=== PATIENT | female | born 1970 | race Caucasian/White ===

== ENCOUNTER 2016-08-27 14:39 | Outpatient (CLI) | payer MEDICAID ==
[~2016-08-27] VITALS: Ht 157.5 cm; Wt 110.7 kg
--- OUTSIDE RECORDS SUMMARY | 2016-08-27 14:42 | XMS REPORT ---
Author Author DYLLAN SOSA eClinicalWorks Address Unknown Phone Unavailable Care Team Providers Care Charter And Tour Bus Driver Name Role Phone DYLLAN SOSA CP Unavailable Allergies, Adverse Reactions, Alerts Substance Reaction Event Type Sulfamethoxazole-Trimethoprim swelling Drug Allergy Problems Problem Type Condition Code Onset Dates Condition Status Assessment Diabetic polyneuropathy associated with type 2 diabetes mellitus E11.42 Active Problem Diabetes type 2, uncontrolled E11.65 Active Assessment Diabetes type 2, uncontrolled E11.65 Active Problem Acquired hypothyroidism E03.9 Active Problem Diabetic polyneuropathy associated with type 2 diabetes mellitus E11.42 Active Problem Other chronic pain G89.29 Active Problem Chronic constipation K59.00 Active Problem Anxiety F41.9 Active Problem Gastroparesis due to secondary diabetes E13.43 Active Problem Diabetes type 2, controlled E11.9 Active Assessment Chronic constipation K59.00 Active Assessment Pain in right knee M25.561 Active Assessment Other chronic pain G89.29 Active Assessment Acquired hypothyroidism E03.9 Active Assessment Anxiety F41.9 Active Assessment Pain in left knee M25.562 Active Assessment Gastroparesis due to secondary diabetes E13.43 Active Medications Medication Code System Code Instructions Start Date End Date Status Dosage Clonazepam [facility] [place] [address]-87 1 MG Orally Once a day Sep 17, 2015 1.5 tabs in pm Linzess [facility] [place] [address]-61 145 MCG Orally Once a day (DX: chronic constipation/abd pain) May 29, 2015 1 capsule Sucralfate [facility] [place] [id number] 1 GM Orally Once a day at bedtime 1 tablet on an empty stomach BusPIRone HCl [facility] [place] 72965035624 10 mg Orally 2 times a day 1 tablet Fluticasone Propionate [facility] [place] [address]-32 50 MCG/ACT Nasally Once a day November 21, 2015 1 spray in each nostril metformin ND 0 850 mg orally Once a day Aug 28, 2014 1 tablet Hydrochlorothiazide [facility] [place] [address]-37 12.5 MG Orally Once a day Mar 13, 2015 1 capsule Prevacid [facility] [place] 36480883300 30 MG Orally Once a day 1 capsule Lyrica [facility] [place] [address]-64 150 MG Orally 3 times a day Oct 01, 2015 1 capsule Levothyroxine Sodium [facility] [place] [address]-20 25 MCG Orally Once a day Jul 30, 2015 1 tablet Voltaren [facility] [place] [address]-04 1 % Transdermal 2 times a day Jun 10, 2015 as directed Trulicity [facility] [place] 28000670516 1.5 MG/0.5ML Subcutaneous once weekly 0.5 ml Lisinopril [facility] [place] [address]-27 2.5 MG Orally Once a day October 07, 2014 1 tablet Fetzima Titration [facility] [place] [address]-36 40 mg Orally Once a day Apr 30, 2015 2 tablet HydrOXYzine HCl [facility] [place] 18031074972 50 MG Orally 3 times a day 1/2 in am 1/2 tab noon and 1 tablet at bedtime Procedures Procedure Coding System Code Date Office Visit, Est Pt., Level 4 CPT-4 77249 May 28, 2016 Vital Signs Date/Time: May 28, 2016 Cardiac Monitoring Heart Rate 76 bpm Weight 250.0 lbs Height 62 in BMI 45.72 Index Blood Pressure Diastolic 70 mmHg Blood Pressure Systolic 120 mmHg Results No Known Results Summary Purpose eClinicalWorks Submission
[2016-08-27] MEDS ORDERED: LEVO25TA5 PO (15:08)
[2016-08-27] MEDS ORDERED: SUCR1TAB PO (15:08)
[2016-08-27] MEDS ORDERED: BUSP10TA95 PO (15:08)
[2016-08-27] MEDS ORDERED: DICL100G18 TP (15:08)
[2016-08-27] MEDS ORDERED: DULA1.5P2 SQ (15:08)
[2016-08-27] MEDS ORDERED: PROM25TA14 PO (15:08)
[2016-08-27] MEDS ORDERED: METF850T2 PO (15:08)
[2016-08-27] MEDS ORDERED: LANS30CA PO (15:08)
[2016-08-27] MEDS ORDERED: LISI2.5T PO (15:08)
[2016-08-27] MEDS ORDERED: PREG150C PO (15:08)
[2016-08-27] MEDS ORDERED: CLON1TAB3 PO (15:08)
[2016-08-27] MEDS ORDERED: HYDR12.56 PO (15:08)
[2016-08-27] MEDS ORDERED: FLUT16SP22 NSEACH (15:08)
[2016-08-27] MEDS ORDERED: MELO7.5T46 PO (15:08)
[2016-08-27] MEDS ORDERED: LEVO80CA PO (15:08)
[2016-08-27] MEDS ORDERED: HYDR50TA76 PO (15:08)
[2016-08-27] MEDS ORDERED: ONDA8TAB12 PO (15:08)
== END 2016-08-27 15:09 ==
LOC: PREOP 14:39
PROVIDERS: ATTEND Orthopaedic Surgery
DX: Z01.818 Encounter for other preprocedural examination (principal); M23.8X1 Other internal derangements of right knee

== ENCOUNTER 2016-09-01 08:05 | Day surgery (SDC) | payer MEDICAID ==
[~2016-09-01] VITALS: Ht 157.5 cm; Wt 110.7 kg
[~2016-09-01 08:05] MED LIST: BUSP10TA95 PO; CLON1TAB3 PO; DICL100G18 TP; DULA1.5P2 SQ; FLUT16SP22 NSEACH; HYDR12.56 PO; HYDR50TA76 PO; LANS30CA PO; LEVO25TA5 PO; LEVO80CA PO; LISI2.5T PO; MELO7.5T46 PO; METF850T2 PO; ONDA8TAB12 PO; PREG150C PO; PROM25TA14 PO; SUCR1TAB PO
--- NOTE | 2016-09-01 08:07 | HISTORY AND PHYSICAL ---
DATE OF ADMISSION: 09/01/2016 DICTATING PHYSICIAN: Dr. Lopez This will be for outpatient surgery for right knee arthroscopy. HISTORY: The patient is a 46-year-old female, who originally injured her right knee 9 years ago. She had a hyperextension injury. She felt and heard a pop. She was treated with rest, activity modifications and anti-inflammatories without relief. She reports popping and catching in her knee. She reports she has difficulty with exercise because of her knee. Due to functional impairment and failure to improve with conservative measures, the patient has elected proceed with surgical intervention. REVIEW OF SYSTEMS: No chest pain, no shortness of breath. No dysuria. PAST MEDICAL HISTORY: 1. Anxiety disorder. 2. Depression. 3. Diabetes. 4. Reflux. 5. Migraine headache. 6. Irritable bowel syndrome. 7. Sleep apnea. 8. Diabetic neuropathy. 9. Gastroparesis. 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 PAST SURGICAL HISTORY: 1. Adenoidectomy. 2. EGD. FAMILY HISTORY: Unknown. MEDICATIONS: 1. Prevacid 2. hydroxyzine 3. Trilisate 4. levothyroxine 5. lisinopril 6. Fluconazole 7. Lyrica 8. Linzess 9. hydrochlorothiazide 10. MiraLAX 11. Mobic 12. Metformin 13. Voltaren 14. buspirone 15. sucralfate 16. Zofran 17. clonazepam 18. Fetzima ALLERGIES: Sulfamethoxazole. SOCIAL HISTORY: The patient is a former smoker. She denies alcohol use. PHYSICAL EXAMINATION: The patient is well-developed, well-nourished, in no acute distress. HEENT: Normocephalic, atraumatic. Pupils are equal, and reactive to light. OROPHARYNX: Clear. NECK: Supple. No lymphadenopathy. LUNGS: Clear to auscultation bilaterally. HEART: Regular rate and rhythm. ABDOMEN: Soft, nontender, nondistended. EXTREMITY EXAM: The right knee demonstrates a mild effusion. Range of motion 0//0/135. She has 1+ Odell with firm endpoint trace, anterior drawer with firm endpoint negative posterior drawer. No varus valgus laxity. Negative pivot shift. She is tender along her medial lateral joint lines with pain with Mary's medially and laterally. IMPRESSION: Medial meniscal tear, right knee with chondromalacia. PLAN: Right knee arthroscopy, chondroplasty, partial meniscectomy. The risks, benefits, options, ramifications and recovery were discussed at length with the patient. She understands and wishes to proceed. Job ID: [id number] Dictated Date: 08/26/2016 15:45:00 Indoor Landscape Architect Date: 08/27/2016 08:22:47/tyson
[2016-09-01] MEDS ORDERED: ceFAZolin 1,000 MG (ANCEF) VIAL ONE (08:11)
[2016-09-01] MEDS ORDERED: NORMAL SALINE (BAXTER MINI) 50 ML IV ONE (08:11)
[2016-09-01 08:39] VITALS: BP 129/82
[2016-09-01 08:40] VITALS: BP 129/82
[2016-09-01] MEDS ORDERED: MIDAZOLAM 2 MG/2 ML (VERSED) VIAL ONE ×2 (08:41→09:44)
[2016-09-01] MEDS ORDERED: FAMOTIDINE 20MG/2ML IV (PEPCID) ONE (08:41)
[2016-09-01] MEDS ORDERED: ceFAZolin 1 GM/NS 50 ML IVPB IV ONE ×2 (09:00)
[2016-09-01] MEDS ORDERED: LACTATED RINGERS 1,000 ML IV PRN (09:02)
--- NOTE | 2016-09-01 09:07 | Progress Note-Pre Operative ---
Pre-Operative Progress Note H&P Reviewed The H&P was reviewed, patient examined and no changes noted. Date H&P Reviewed: Sep 01, 2016 Time H&P Reviewed: 09:07 Pre-Operative Diagnosis: right knee medial meniscal tear and chondromalacia BRANDIN CELESTIN MD Sep 01, 2016 09:07
--- NOTE | 2016-09-01 09:09 | Progress Note-Post Operative ---
Post-Operative Progess Note Deflector Operator Fidencio Lucas Pre-Operative Diagnosis right knee medial meniscal tear and chondromalacia Post-Operative Diagnosis right knee medial meniscal tear and chondromalacia of the patella and medial femoral condyle Post-Op Procedure Note Date of Procedure: Sep 01, 2016 Name of Procedure: right knee arthroscopic partial medial meniscectomy and chondroplasty of the patella and the medial femora condyle Anesthesia Type GETA Estimated blood loss (mL): minimal Packing: none Specimen(s) collected none BRANDIN CELESTIN MD Sep 01, 2016 09:09
[2016-09-01] MEDS ORDERED: FAMOTIDINE 20MG/2ML IV (PEPCID) IV ONE (09:15)
[2016-09-01] MEDS ORDERED: MIDAZOLAM 2 MG/2 ML (VERSED) VIAL IV ONE (09:15)
[2016-09-01] MEDS ORDERED: HYDROcodone/APAP 7.5 MG/325 MG (LORTAB, LORCET PLUS) TABLET PO PRN (09:15)
[2016-09-01] MEDS ORDERED: BUPIVACAINE 0.25% 30 ML (SENSORCAINE) VIAL ONE (09:31)
[2016-09-01] MEDS ORDERED: morphine PF (DURAMORPH) 10 MG/10 ML AMP ONE (09:31)
[2016-09-01] MEDS ORDERED: ONDANSETRON 4 MG/2 ML (SDV) Z0FRAN ONE (09:43)
[2016-09-01] MEDS ORDERED: ROCURONIUM 50 MG/5 ML (ZEMURON) VIAL IV ONE (09:43)
[2016-09-01] MEDS ORDERED: LIDOCAINE PF 2% 10 ML (XYLOCAINE) AMP ONE (09:43)
[2016-09-01] MEDS ORDERED: LIDOCAINE JELLY 2% (XYLOCAINE) 5 ML TUBE ONE (09:43)
[2016-09-01] MEDS ORDERED: LACTATED RINGERS 1,000 ML IV ONE ×2 (09:43→11:05)
[2016-09-01] MEDS ORDERED: proPOfol 200 MG/20 ML (DIPRIVAN) VIAL IV ONE (09:43)
[2016-09-01] MEDS ORDERED: fentaNYL INJECTION 100 MCG/2 ML AMP ONE (09:44)
[2016-09-01] MEDS ORDERED: SEVOFLURANE (ULTANE) 15 ML INHAL SOLN ONE (10:47)
[2016-09-01] MEDS ORDERED: morphine INJ 10 MG/ML 1ML (SYR OR VIAL) IVP PRN (11:00)
[2016-09-01] MEDS ORDERED: MEPERIDINE (DEMEROL) INJ 50 MG/ML IVP PRN (11:00)
[2016-09-01] MEDS ORDERED: ONDANSETRON 4 MG/2 ML (SDV) Z0FRAN IVP PRN (11:00)
[2016-09-01 12:00] VITALS: BP 124/64
[2016-09-01 12:30] VITALS: BP 117/93
[2016-09-01] MEDS ORDERED: HYDR-3816 PO (12:34)
[2016-09-01 13:00] VITALS: BP 121/84
[2016-09-01 13:20] VITALS: BP 121/84
--- NOTE | 2016-09-01 14:22 | Physical Therapy Ortho Eval ---
PT Orthopedic Evaluation Type of Surgery Knee Scope right side Prior Level of Function Current Living Status: Significant Other Locomotion (Upon Admit): Straight Cane Established Durable Medical Eq: Straight Cane Subjective Subjective Patient in bed pre tx, would like to get dressed before getting up, can do so with her SO. Patient states she does not have a walker at home, nurse is going to be setting her up to get one. Patient states she has 9/10 pain in her right knee. Entry Into Home: Stairs Without Railing Steps Into Home: 1 Other Obstacles: Patient states the step is very small. Objective Objective dev wrap right knee Motor Control Motor Control: Motor Control WNL ROM ROM: WFL, except focal deficit Strength NT due to pain and recent surgery Transfer Transfers (B, C, W/C) (FIM): 4 CGA with stand pivot but patient performs bed mobility with mod I Gait Gait Assistive Device: FWW Weight Bearing Restriction: Weight Bearing/Tolerated Location Restriction: R LE Gait (FIM): 2 Distance: 50' Gait Level of Assist: 4 (CGA) Summary/Comments Patient also went up and down 1 step using a rolling walker with CGA and cues for safety and foot placement. Treatment Rendered Treatment: Therapeutic Exercises Exercise Instruction: Quad Sets, Heel Slides, Ankle Pumps Assessment/Goals Goal Time Frame: 1 Visit Plan Treatment Plan: Discharge PT/Family Agrees to Plan: Yes Time Time In: 1245 Time Out: 1305 Total Billed Treatment Time: 20 Billed Treatment Time 1 visit EVL 20min Yes PT/OT Therapy GCodes Therapy Functional Limitation: Physical Therapy Functional Limitation-Current Charge Code: MOBCUR Modifier: CI Functional Limitation-Goal Charge Code: MOBGOAL Modifier: CI Functional Limitation-D/C Charge Codes: MOBDC Modifier: CI NAYA STEPHENSON PT Sep 01, 2016 14:21
--- NOTE | 2016-09-01 15:08 | OPERATIVE REPORT ---
PROCEDURE PHYSICIAN: BRANDIN CELESTIN DATE OF PROCEDURE: 09/01/2016 PREOPERATIVE DIAGNOSIS: 1. Right knee medial meniscal tear. 2. Right knee chondromalacia of patella. POSTOPERATIVE DIAGNOSIS: 1. Right knee medial meniscal tear. 2. Right knee chondromalacia of patella. 3. Right knee chondromalacia of the medial femoral condyle. PROCEDURE: 1. Right knee arthroscopic partial medial meniscectomy. 2. Right knee arthroscopic chondroplasty of the medial femoral condyle. 3. Right knee arthroscopic chondroplasty of the patella. SURGEON: Jessica REPLENISHER: Fidencio Lucas. ANESTHESIA: General endotracheal by Fidencio Francis CRNA. TOURNIQUET TIME: Was not applicable. ESTIMATED BLOOD LOSS: Minimal. DRAINS: None. COMPLICATIONS: None. POSTOPERATIVE PLAN: Routine arthroscopy protocol. The patient was transported to the recovery room, awake, in stable condition. STATEMENT OF MEDICAL NECESSITY: The patient is a 46-year-old female with complaints of right knee pain, catching, locking and swelling. She is tender along her medial joint line. She had patellofemoral crepitus. She reported functional impairment and this has been ongoing for 6 years without relief. Therefore, the patient elected to proceed with surgical intervention. Examination under anesthesia revealed range of motion 0/0/135, 1+ Odell 1+ anterior drawer, negative pivot shift. No varus valgus laxity. Negative posterior drawer. Arthroscopic findings: The ACL was 90% disrupted from its femoral attachment in a chronic nature. The PCL was intact. The patella demonstrated grade 2 chondral flaps over the lateral facet in a 10 x 20 area. The trochlea demonstrated no gross chondral abnormalities. The medial and lateral gutters were clear. The lateral compartment demonstrated grade 1 chondral softening in the central portion of tibial plateau with no flaps and no meniscal pathology noted. The medial compartment demonstrated a longitudinal tear of the posterior horn of the medial meniscus, approximately two thirds of the posterior horn. This was unstable. The medial femoral condyle demonstrated grade 2 chondral flap near the intracondylar notch in a 5 x 8 area. PROCEDURE: After risks and benefits of the procedure were discussed and questions were answered an informed consent was signed and placed on chart. The operative site was confirmed in the preoperative holding and initialed by the surgeon. The patient was then transported to the operating room and after adequate levels of general endotracheal anesthetic were obtained, a timeout was called confirming the operative site. Examination under anesthesia was performed with the above findings noted. The right lower extremity was prepped and draped in the usual sterile fashion. The knee joint was injected with 60 mL of fluid and a standard inferolateral port was placed for the arthroscope and inflow cannula. Under direct visualization an inferior medial port was created. The menisci cruciate was carefully probed with the above findings noted. The unstable chondral flaps of the medial femoral condyle were debrided with a shaver, back to a stable edge. The posterior horn of the medial meniscus debrided with a biter and with a shaver, removing approximately 1/3rd of the posterior horn. This was carefully probed with no further tearing or instability noted. The scope was then redirected into the patellofemoral joint space and the undersurface of the patella was debrided with a shaver back to a stable chondral surface. The knee was copiously irrigated. The portal sites closed with 3-0 nylon in subcuticular fashion. The knee was injected with Duramorph. Portal sites were infiltrated with plain Marcaine. A soft dressing was applied. The patient was transported to the recovery awake, in stable condition. Job ID: [id number] Dictated Date: 09/01/2016 10:55:52 Supervisor Instant Potato Processing Date: 09/01/2016 14:52:07 / adam
== END 2016-09-01 13:20 | disposition home or self-care (01) ==
LOC: SDC 08:05
PROVIDERS: ATTEND Orthopaedic Surgery
DX: M23.8X1 Other internal derangements of right knee (principal); M22.41 Chondromalacia patellae, right knee; E11.9 Type 2 diabetes mellitus without complications; F41.9 Anxiety disorder, unspecified; F32.9 Major depressive disorder, single episode, unspecified; K21.9 Gastro-esophageal reflux disease without esophagitis; Z11.2 Encounter for screening for other bacterial diseases; Z79.899 Other long term (current) drug therapy
CPT/HCPCS: 82962; 84703; 87081

== ENCOUNTER → 2016-10-18 | Outpatient (CLI) | payer MEDICAID ==
[~2016-10-18] MED LIST changes: +HYDR-3816 PO; +LANS30TA3 PO; +LINA145C PO; +OXYC-197 PO; +POLY17PO6 PO
--- NOTE | 2016-10-18 13:49 | Diagnostic Imaging Report ---
PROCEDURE: MRI left joint lower extremity without contrast. TECHNIQUE: Multiplanar, multisequence non contrast-enhanced MRI of the left lower extremity was accomplished. INDICATION: Left knee pain. FINDINGS: Due to the large size of the knee in this patient, an alternate coil instead of the dedicated knee coil was utilized which results in decreased resolution of imaging. Diagnostic quality of the exam particularly for major abnormalities, however, remains acceptable. There is bone marrow contusion involving the posterior aspect of the lateral tibial condyle. No significant contusion is seen at this point in the femur or in the patella. There is a small suprapatellar effusion. The extensor mechanism demonstrates slight laxity in the patellar tendon which could be from hyperextension. No significant tear is seen. The location of the torn ACL fibers posteriorly may contribute to the hyperextension. There is a full-thickness tear of the ACL with no remaining normal fibers seen. The torn fibers appear to be displaced posteriorly underneath the PCL. The PCL appears intact. There is an oblique tear involving the posterior horn of the medial meniscus and the tear has extension into the body of the meniscus. The anterior horn appears intact. The posterior root of the medial meniscus is not well evaluated. The lateral meniscus demonstrates no definite tear. The lateral collateral ligament complex and the medial collateral ligament appear intact. There is no popliteal fluid collection or Tolbert's cyst. The muscle bulk around the knee is normal. There is mild subcutaneous edema anterior to the patellar tendon. IMPRESSION: 1. Full-thickness tear of the ACL. 2. Oblique tear involving the posterior horn and the body of the medial meniscus. 3. Laxity of the patellar tendon is noted, appears to be secondary to hyperextension of the knee. This is possibly related to location of the torn ACL fibers. Dictated by: Dictated on workstation # [id number]
== END ==
LOC: RAD 10:46
PROVIDERS: ATTEND Orthopaedic Surgery
DX: S83.512A Sprain of anterior cruciate ligament of left knee, initial encounter (principal); W19.XXXA Unspecified fall, initial encounter; Y99.8 Other external cause status
CPT/HCPCS: 73721

== ENCOUNTER 2016-11-04 08:45 | Outpatient (CLI) | payer MEDICAID ==
[~2016-11-04] VITALS: Ht 157.5 cm; Wt 108.9 kg
[~2016-11-04 08:45] MED LIST changes: -LANS30TA3 PO; -LINA145C PO; -OXYC-197 PO; -POLY17PO6 PO
[2016-11-04] MEDS ORDERED: POLY17PO6 PO (08:55)
[2016-11-04] MEDS ORDERED: LANS30TA3 PO (08:55)
[2016-11-04] MEDS ORDERED: LINA145C PO (08:55)
== END 2016-11-04 09:00 ==
LOC: PREOP 08:45
PROVIDERS: ATTEND Orthopaedic Surgery
DX: Z01.818 Encounter for other preprocedural examination (principal); S83.512A Sprain of anterior cruciate ligament of left knee, initial encounter; S83.242A Other tear of medial meniscus, current injury, left knee, initial encounter; X58.XXXA Exposure to other specified factors, initial encounter; Y99.8 Other external cause status

== ENCOUNTER 2016-11-10 07:15 | Day surgery (SDC) | payer MEDICAID ==
[~2016-11-10] VITALS: Ht 157.5 cm; Wt 108.9 kg
[~2016-11-10 07:15] MED LIST changes: +LANS30TA3 PO; +LINA145C PO; +POLY17PO6 PO
--- NOTE | 2016-11-10 07:28 | Progress Note-Pre Operative ---
Pre-Operative Progress Note H&P Reviewed The H&P was reviewed, patient examined and no changes noted. Date H&P Reviewed: Nov 10, 2016 Time H&P Reviewed: 07:28 Pre-Operative Diagnosis: left ACL and medial meniscal tears BRANDIN CELESTIN MD Nov 10, 2016 07:28
[2016-11-10] MEDS ORDERED: HYDROcodone/APAP 7.5 MG/325 MG (LORTAB, LORCET PLUS) TABLET PO PRN (07:30)
--- NOTE | 2016-11-10 07:30 | Progress Note-Post Operative ---
Post-Operative Progess Note Surgeon (s)/Assistant Manager Quality Management (s) Surgeon BRANDIN CELESTIN MD Assistant Manager Quality Management: Fidencio Lucas Pre-Operative Diagnosis left ACL and medial meniscal tears Post-Operative Diagnosis left ACL and lateral meniscal tears and chondromalacia of the patella and the medial femoral condyle Post-Op Procedure Note Date of Procedure: Nov 10, 2016 Name of Procedure Performed: left knee arthroscopic ACL reconstruction, partial medial meniscectomy and chondroplasty of the patella and medial femoral condyle Description of the Procedure: see operative note Findings of the Procedure see operative note Anesthesia Type GETA Estimated blood loss (mL): 50 ml Packing: none Specimen(s) collected/removed none BRANDIN CELESTIN MD Nov 10, 2016 07:30
[2016-11-10] MEDS ORDERED: ceFAZolin 2 GM/NS 50 ML IV ONE (07:45)
[2016-11-10] MEDS ORDERED: MIDAZOLAM 2 MG/2 ML (VERSED) VIAL ONE ×2 (08:19→09:15)
[2016-11-10] MEDS ORDERED: FAMOTIDINE 20MG/2ML IV (PEPCID) ONE (08:19)
[2016-11-10] MEDS ORDERED: FAMOTIDINE 20MG/2ML IV (PEPCID) IV ONE (08:30)
[2016-11-10] MEDS ORDERED: MIDAZOLAM 2 MG/2 ML (VERSED) VIAL IV ONE (08:30)
[2016-11-10] MEDS: LACTATED RINGERS 1,000 ML IV PRN ×2 (08:31→10:08)
[2016-11-10 08:33] VITALS: BP 134/83
[2016-11-10] MEDS ORDERED: fentaNYL INJECTION 250 MCG/5 ML AMP ONE (09:15)
[2016-11-10] MEDS ORDERED: BUPIVACAINE 0.25% 30 ML (SENSORCAINE) VIAL ONE (09:37)
[2016-11-10] MEDS ORDERED: morphine PF (DURAMORPH) 10 MG/10 ML AMP ONE (09:37)
[2016-11-10] MEDS ORDERED: SEVOFLURANE (ULTANE) 15 ML INHAL SOLN ONE ×3 (09:45→10:30)
[2016-11-10] MEDS ORDERED: LACTATED RINGERS 1,000 ML IV ONE ×2 (09:45→09:52)
[2016-11-10] MEDS ORDERED: LIDOCAINE PF 2% 10 ML (XYLOCAINE) AMP ONE (09:45)
[2016-11-10] MEDS ORDERED: proPOfol 200 MG/20 ML (DIPRIVAN) VIAL IV ONE (09:45)
[2016-11-10] MEDS ORDERED: ONDANSETRON 4 MG/2 ML (SDV) Z0FRAN ONE (09:45)
[2016-11-10] MEDS ORDERED: morphine INJ 10 MG/ML 1ML (SYR OR VIAL) ONE (10:51)
[2016-11-10] MEDS: morphine INJ 10 MG/ML 1ML (SYR OR VIAL) IVP PRN ×2 (10:56→11:04)
[2016-11-10] MEDS ORDERED: ONDANSETRON 4 MG/2 ML (SDV) Z0FRAN IVP PRN (11:00)
[2016-11-10] MEDS: MEPERIDINE (DEMEROL) INJ 50 MG/ML IVP PRN ×2 (11:00→11:05)
[2016-11-10] MEDS ORDERED: HYDROmorphone (DILAUDID) 2 MG/ML VIAL ONE (11:12)
[2016-11-10] MEDS: HYDROmorphone (DILAUDID) 2 MG/ML VIAL IVP PRN ×3 (11:16→11:28)
[2016-11-10 11:50] VITALS: BP 115/76
[2016-11-10 12:20] VITALS: BP 133/74
[2016-11-10] MEDS ORDERED: HYDR-3816 PO (12:30)
[2016-11-10] MEDS ORDERED: OXYC-197 PO (12:30)
[2016-11-10 12:50] VITALS: BP 139/75
--- NOTE | 2016-11-10 13:45 | Physical Therapy Progress Note ---
Therapy Progress Note Evaluation attempted but not performed. Nurse went to talk with patient and came back out and states that patient is very familiar with using crutches and needs no training. NAYA STEPHENSON PT Nov 10, 2016 13:45
--- NOTE | 2016-11-10 14:23 | OPERATIVE REPORT ---
PROCEDURE PHYSICIAN: BRANDIN CELESTIN DATE OF PROCEDURE: 11/10/2016 PREOPERATIVE DIAGNOSIS: 1. Left knee ACL tear. 2. Left knee lateral meniscal tear. POSTOPERATIVE DIAGNOSIS: 1. Left knee ACL tear. 2. Left knee lateral meniscal tear. 3. Left knee chondromalacia of the medial femoral condyle. 4. Left knee chondromalacia of the patella. PROCEDURES: 1. Left knee arthroscopic ACL reconstruction using allograft. 2. Left knee arthroscopic partial lateral meniscectomy. 3. Left knee arthroscopic chondroplasty of the medial femoral condyle. 4. Left knee arthroscopic chondroplasty of the patella. SURGEON: Jessica QUALITY CONTROLLER: Fidencio Lucas who assisted throughout the procedure and closed the incisions. ANESTHESIA: General endotracheal by Fidencio Francis CRNA. TOURNIQUET TIME: Was not applicable. ESTIMATED BLOOD LOSS: Minimal. DRAINS: None. COMPLICATIONS: None. POSTOPERATIVE PLAN: ACL protocol. The patient was transported to the recovery room, awake, and in stable condition. STATEMENT OF MEDICAL NECESSITY: The patient is a 46-year-old female with long-standing left knee pain and instability. She had been wearing a brace for years but reported functional instability and disability in the knee. An MRI confirmed a posterior horn lateral meniscal tear, as well as ACL insufficiency and due to functional impairment and failure to improve with conservative measures, the patient elected to proceed with surgical intervention. Examination under anesthesia revealed 2+ Odell, 2+ anterior drawer, positive pivot shift. No varus valgus laxity. Negative posterior drawer. Range of motion was 5/0/140. Arthroscopic findings demonstrated grade 2 chondral flaps in the inferior portion of the patella in a 10 x 5 area. The trochlea demonstrated no gross chondral abnormalities. The medial and lateral gutters were clear. The lateral compartment demonstrated a horizontal cleavage tear of the posterior horn of the lateral meniscus involving approximately 20% of the posterior horn. No significant meniscal pathology was noted. The PCL was intact. The ACL was completely disrupted from its femoral attachment. The medial compartment demonstrated grade 3 chondral flaps over the central portion of femoral condyle in a 10 x 10 area. PROCEDURE: After risks and benefits of the procedure were discussed and questions were answered. Informed consent was signed and placed on the chart. The operative site was confirmed in the preoperative holding area and initialed by the surgeon. The patient was then transported to the operating room and after adequate levels of general endotracheal anesthetic were seen a timeout was called confirming the operative site. Examination under anesthesia was performed and the left lower extremity was prepped and draped in the usual sterile fashion. The knee joint was injected with 60 mL of fluid and a standard superior medial inflow cannula was placed. An inferolateral portal was placed for the arthroscope and direct visualization an inferior medial port created. The menisci cruciate was carefully probed with the above findings noted. The unstable chondral flaps of the patella were debrided with a shaver, back to a stable edge. The scope was then redirected into the medial compartment where the unstable chondral flaps on the femoral condyle were debrided with shaved back to a stable edge. The scope was redirected lateral compartment where the posterior horn and lateral meniscus was debrided with a biter and a shaver, removing approximately 20% of the posterior horn. This was carefully probed with no further tearing or instability noted. The ACL remnant was debrided. The [id number]-[id number] position was identified by performing a notchplasty with a shaver. The allograft was prepared. The tibial guide was placed at a 60 degrees angle, 6 mm anterior to posterior cruciate ligament and 6 mm lateral to the medial femoral condyle. This was placed intra-articularly and then overreamed with a 9 mm reamer. The [id number]-lhd-ynd guide was placed at the 2:30 o'clock position drilled to a depth of 30 mm. The graft was then passed, the button was flipped and pulled vigorously distally and found to be stable. The knee was taken through a range of motion with no impingement noted. With the knee held in approximately 30 degrees of flexion posterior drawer applied an 11 mm absorbable interference screw was placed with excellent purchase obtained. This was viewed arthroscopically and there was no intra-articular penetration noted. The knee was taken through a range of motion and no impingement the graft was noted. There was negative Odell. Negative pivot shift. Negative anterior drawer with full motion noted. The knee was copiously irrigated. Port sites closed with 4-0 nylon in a simple interrupted fashion and the incision the tibial tunnel was closed with 2-0 Vicryl at the subcutaneous layer and 4-0 nylon vertical mattress in an interrupted fashion of the skin layer. The incisions were infiltrated with plain Marcaine. The knee was injected with Duramorph. A soft dressing and brace were applied. The patient was transported to the recovery awake, in stable condition. Job ID: [id number] Dictated Date: 11/10/2016 10:43:09 Able Bodied Seaman Date: 11/10/2016 14:11:07 / adam
--- NOTE | 2016-11-10 14:29 | Diagnostic Imaging Report ---
EXAMINATION: Left knee at 11:10 a.m. INDICATION: Postop ACL reconstruction. FINDINGS: There are no previous plain film examinations available for comparison. The MRI left knee exam of 10/18/2016 did note a full-thickness tear of the ACL. On this exam, there is a 0.4 x 1.2 cm metallic fenestrated plate lying in the soft tissues adjacent to the lateral margin of the lateral femoral condyle. There is also an oblique area of diminished density extending through the proximal tibia. This may be related to the ACL repair. There is no fracture or acute bony abnormality identified. The lateral view does suggest that there is a small joint effusion present. There is moderate narrowing of the medial compartment of the knee joint. The knee joint is otherwise well maintained. IMPRESSION: 1. There is no evidence for an acute bony abnormality. 2. There is an orthopedic plate in the soft tissues adjacent to the lateral aspect of the lateral femoral condyle, and there is a tubular defect extending obliquely through the proximal tibia. Most likely, these are related to the repair of the anterior cruciate ligament. 3. There is a small joint effusion present. Dictated by: Dictated on workstation # [id number]
--- NOTE | 2016-11-15 07:36 | HISTORY AND PHYSICAL ---
DATE OF ADMISSION: 11/10/2016 This will be for outpatient surgery for left knee ACL reconstruction and partial meniscectomy. HISTORY: The patient is a 46-year-old female who has had a several year history of left knee pain and instability. She reports giving way despite extensive conservative measures, and wearing of a brace. She reports functional impairment because of the knee. Due to progressive symptoms, the patient has elected to proceed with surgical intervention. MRI revealed an ACL disruption as well as a medial meniscal tear. REVIEW OF SYSTEMS: No chest pain, no shortness of breath. No dysuria. PAST MEDICAL HISTORY: 1. Anxiety disorder. 2. Depression. 3. Diabetes. 4. Reflux. 5. Irritable bowel syndrome. 6. Migraines. 7. Sleep apnea. 8. Diabetic neuropathy. 9. Gastroparesis. 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 PAST SURGICAL HISTORY: 1. Adenoidectomy. 2. EGD. 3. Right knee arthroscopy. FAMILY HISTORY: Unknown. MEDICATIONS: 1. Prevacid. 2. Hydroxyzine. 3. Trilisate. 4. Levothyroxine. 5. Lisinopril. 6. Fluconazole. 7. Lyrica. 8. Linzess. 9. Hydrochlorothiazide. 10. MiraLAX. 11. Mobic. 12. Metformin. 13. Voltaren. 14. Buspirone. 15. Sucralfate. 16. Zofran. 17. Clonazepam. 18. Fetzima. ALLERGIES: Sulfamethoxazole. SOCIAL HISTORY: The patient is a former smoker. She denies alcohol use. PHYSICAL EXAMINATION: The patient is well-developed, well-nourished nourished, in no acute distress. HEENT: Normocephalic, atraumatic. Pupils are equal, round, and reactive to light. OROPHARYNX: Clear. NECK: Supple. No lymphadenopathy clear. LUNGS: Clear to auscultation bilaterally. HEART: Regular rate and rhythm. ABDOMEN: Soft, nontender, nondistended. EXTREMITIES: The left knee demonstrates a moderate effusion. She has 2+ Odell, 2+ anterior drawer with positive pivot shift. She is tender along her medial joint line and has pain medially with Mary's. Range of motion 0/0/140. The patient ambulates with an antalgic gait. IMPRESSION: Left knee ACL deficiency with medial meniscal tear. PLAN: Left knee arthroscopic ACL reconstruction using allograft and partial meniscectomy. The risks, benefits, options, ramifications and recovery have been discussed at length with the patient. She understands and wishes to proceed. Job ID: [id number] Dictated Date: 11/02/2016 13:16:00 Database Support Date: 11/02/2016 14:31:47/tyson
--- OUTSIDE RECORDS SUMMARY | 2016-12-12 16:30 | XMS REPORT ---
Author DAISY Dodson eClinicalWorks Address Unknown Phone Unavailable Care Team Providers Care Nurse Recruiter Name Role Phone DAISY MARIN Unavailable Allergies, Adverse Reactions, Alerts Substance Reaction Event Type Sulfamethoxazole-Trimethoprim swelling Drug Allergy Problems Problem Type Condition Code Onset Dates Condition Status Problem Chronic constipation K59.00 Active Problem Anxiety F41.9 Active Problem Diabetes type 2, controlled E11.9 Active Problem Diabetes type 2, uncontrolled E11.65 Active Assessment Ingrown toenail L60.0 Active Medications Medication Code System Code Instructions Start Date End Date Status Dosage Trutest Blood Glucose Meter [facility] [address]-90 not defined Erythrocin Stearate [facility] [address]-69 250 MG Orally not defined Hydrocodone-Acetaminophen [facility] [address]-16 5-325 MG Orally every 6 hrs PRN November 26, 2015 1 tablet as needed metformin ND 0 850 mg orally Once a day Aug 28, 2014 1 tablet Hydrochlorothiazide [facility] [address]-67 12.5 MG Orally Once a day Mar 13, 2015 1 capsule Levothyroxine Sodium [facility] [address]-23 25 MCG Orally Once a day Jul 30, 2015 1 tablet HydrOXYzine HCl [facility] [address]-35 50 MG Orally 3 times a day Apr 30, 2015 1/2 in am 1/2 tab noon and 1 tablet at bedtime Prevacid [facility] [address]-84 30 MG Orally Once a day February 15, 2015 1 capsule Fetzima Titration [facility] [address]-23 40 mg Orally Once a day Apr 30, 2015 1 tablet Levemir FlexTouch [facility] [address]-33 100 UNIT/ML Subcutaneous 2 times a day February 17, 2015 20 units Trutest Blood Glucose Test Strip ND 0 ... 4 times a day Jul 18, 2015 as directed BusPIRone HCl [facility] [address]-29 10 MG Orally 2 times a day May 14, 2015 1 tablet Pen [place] [facility] [address]45 29G X 12MM subcutaneous 4 times a day Inject Sucralfate [facility] [address]-05 1 GM Orally Once a day at bedtime 1 tablet on an empty stomach Clonazepam [facility] [address]-06 1 MG Orally Once a day Sep 17, 2015 1.5 tabs in pm Trulicity [facility] [address]-38 1.5 MG/0.5ML Subcutaneous once weekly Oct 01, 2015 0.5 ml Fluticasone Propionate [facility] [address]-85 50 MCG/ACT Nasally Once a day November 21, 2015 1 spray in each nostril Lyrica [facility] [address]-95 150 MG Orally 3 times a day Oct 01, 2015 1 capsule Lancets [facility] 0 ... 4 times a day March 05, 2014 4 times per day Dx 250.02 Ultram [facility] [address]-44 50 MG Orally every 4 hrs PRN. Must last one month October 07, 2014 1-2 tablet Voltaren [facility] [address]-12 1 % Transdermal 2 times a day Jun 10, 2015 as directed Lisinopril [facility] [address]-44 2.5 MG Orally Once a day October 07, 2014 1 tablet Linzess [facility] [address]-82 145 MCG Orally Once a day (DX: chronic constipation/abd pain) May 29, 2015 1 capsule Procedures Procedure Coding System Code Date Office Visit, Est Pt., Level 3 CPT-4 19579 December 03, 2015 Vital Signs Date/Time: December 03, 2015 Temperature 97.9 F Weight 256.2 lbs Height 62 in BMI 46.85 Index Blood Pressure Diastolic 68 mmHg Blood Pressure Systolic 122 mmHg Cardiac Monitoring Heart Rate 80 bpm Results No Known Results Summary Purpose eClinicalWorks Submission
--- OUTSIDE RECORDS SUMMARY | 2016-12-12 16:30 | XMS REPORT ---
Author Author DAYANA BRAGA Organization eClinicalWorks Address Unknown Phone Unavailable Care Team Providers Care Sales Support Advisor Name Role Phone DAYANA BRAGA Unavailable Allergies No Known Allergies Problems Problem Type Condition Code Onset Dates Condition Status Problem Gastroparesis due to secondary diabetes E13.43 Active Problem Diabetes type 2, controlled E11.9 Active Problem Diabetic polyneuropathy associated with type 2 diabetes mellitus E11.42 Active Problem Diabetes type 2, uncontrolled E11.65 Active Problem Chronic constipation K59.00 Active Problem Anxiety F41.9 Active Medications Medication Code System Code Instructions Start Date End Date Status Dosage Lyrica [facility] [address]-98 150 MG Orally 3 times a day Oct 01, 2015 1 capsule Results No Known Results Summary Purpose eClinicalWorks Submission
--- OUTSIDE RECORDS SUMMARY | 2016-12-12 16:30 | XMS REPORT ---
Author Author DAISY MARIN [employer] Address Unknown Phone Unavailable Care Team Providers Care Internet Systems Administrator Name Role Phone DAISY MARIN Unavailable Allergies No Known Allergies Problems Problem Type Condition Code Onset Dates Condition Status Problem Other abnormal blood chemistry 790.6 Active Problem Mononeuritis of unspecified site 355.9 Active Problem Uncontrolled type 2 diabetes with neuropathy 250.62 Active Problem Unspecified constipation 564.00 Active Problem Diabetes type 2, uncontrolled E11.65 Active Problem Unspecified hereditary and idiopathic peripheral neuropathy 356.9 Active Problem Other specified disease of nail 703.8 Active Problem Heartburn 787.1 Active Problem Insomnia, unspecified 780.52 Active Medications Medication Code System Code Instructions Start Date End Date Status Dosage Matthew [facility] [address]-50 290 MCG Orally Once a day (DX: chronic constipation/abd pain) May 29, 2015 Aug 27, 2015 1 capsule Results No Known Results Summary Purpose eClinicalWorks Submission
--- OUTSIDE RECORDS SUMMARY | 2016-12-12 16:30 | XMS REPORT ---
Author Author DYLLAN SOSA eClinicalWorks Address Unknown Phone Unavailable Care Team Providers Care Conical Mixer Name Role Phone DYLLAN SOSA CP Unavailable [...] Start Date End Date Status Dosage Clonazepam [facility] [address]-91 1 MG Orally Once a day Sep 17, 2015 1.5 tabs in pm Linzess [facility] [address]-23 145 MCG Orally Once a day (DX: chronic constipation/abd pain) May 29, 2015 1 capsule Sucralfate [facility] 61274566789 1 GM Orally Once a day at bedtime 1 tablet on an empty stomach BusPIRone HCl [facility] 45003606415 10 mg Orally 2 times a day 1 tablet Fluticasone Propionate [facility] [address]-85 50 MCG/ACT Nasally Once a day November 21, 2015 1 spray in each nostril metformin ND 0 850 mg orally Once a day Aug 28, 2014 1 tablet Hydrochlorothiazide [facility] [address]-54 12.5 MG Orally Once a day Mar 13, 2015 1 capsule Prevacid [facility] 66836234157 30 MG Orally Once a day 1 capsule Lyrica [facility] [address]-85 150 MG Orally 3 times a day Oct 01, 2015 1 capsule Levothyroxine Sodium [facility] [address]-16 25 MCG Orally Once a day Jul 30, 2015 1 tablet Voltaren [facility] [address]-61 1 % Transdermal 2 times a day Jun 10, 2015 as directed Trulicity [facility] 47215352262 1.5 MG/0.5ML Subcutaneous once weekly 0.5 ml Lisinopril [facility] [address]-48 2.5 MG Orally Once a day October 07, 2014 1 tablet Fetzima Titration [facility] [address]-03 40 mg Orally Once a day Apr 30, 2015 2 tablet HydrOXYzine HCl [facility] 02873299391 50 MG Orally 3 times a day 1/2 in am 1/2 tab noon and 1 tablet at bedtime Procedures Procedure Coding System Code Date Office Visit, Est Pt., Level 4 CPT-4 12047 May 28, 2016 Vital Signs Date/Time: May 28, 2016 Cardiac Monitoring Heart Rate 76 bpm Weight 250.0 lbs Height 62 in BMI 45.72 Index Blood Pressure Diastolic 70 mmHg Blood Pressure Systolic 120 mmHg Results No Known Results Summary Purpose eClinicalWorks Submission
--- OUTSIDE RECORDS SUMMARY | 2016-12-12 16:31 | XMS REPORT ---
Author DAISY Dodson eClinicalWorks Address Unknown Phone Unavailable Care Team Providers Care Metalworking Specialist Name Role Phone DAISY MARIN Unavailable Allergies, Adverse Reactions, Alerts Substance Reaction Event Type Sulfamethoxazole-Trimethoprim swelling Drug Allergy Problems Problem Type Condition Code Onset Dates Condition Status Problem Chronic constipation K59.00 Active Problem Anxiety F41.9 Active Problem Diabetes type 2, controlled E11.9 Active Assessment Ingrowing nail L60.0 Active Problem Diabetes type 2, uncontrolled E11.65 Active Assessment Tinea unguium B35.1 Active Medications Medication Code System Code Instructions Start Date End Date Status Dosage Hydrochlorothiazide [facility] [address]-72 12.5 MG Orally Once a day Mar 13, 2015 1 capsule Levothyroxine Sodium [facility] [address]-61 25 MCG Orally Once a day Jul 30, 2015 1 tablet Augmentin [facility] [address]-04 875-125 MG Orally every 12 hrs November 21, 2015 December 01, 2015 1 tablet Levemir FlexTouch [facility] [address]-31 100 UNIT/ML Subcutaneous 2 times a day February 17, 2015 20 units Lancets [place] 0 ... 4 times a day March 05, 2014 4 times per day Dx 250.02 Fetzima Titration [facility] [address]-34 40 mg Orally Once a day Apr 30, 2015 1 tablet Trutest Blood Glucose Test Strip ND 0 ... 4 times a day Jul 18, 2015 as directed Lisinopril [facility] [address]-31 2.5 MG Orally Once a day October 07, 2014 1 tablet Fluticasone Propionate [facility] [address]-64 50 MCG/ACT Nasally Once a day November 21, 2015 1 spray in each nostril Clonazepam [facility] [address]-68 1 MG Orally Once a day Sep 17, 2015 1.5 tabs in pm Keflex [facility] [address]-47 500 MG Orally Twice a day November 19, 2015November 1 capsule Pen [place] [facility] 464[address]23 29G X 12MM subcutaneous 4 times a day Inject Trutest Blood Glucose Meter [facility] [address]-30 not defined Erythrocin Stearate [facility] [address]-36 250 MG Orally not defined Trulicity [facility] [address]-93 1.5 MG/0.5ML Subcutaneous once weekly Oct 01, 2015 0.5 ml Ultram [facility] [address]-74 50 MG Orally every 4 hrs PRN. Must last one month October 07, 2014 1-2 tablet Voltaren [facility] [address]-91 1 % Transdermal 2 times a day Jun 10, 2015 as directed metformin [facility] 0 850 mg orally Once a day Aug 28, 2014 1 tablet BusPIRone HCl [facility] [address]-31 10 MG Orally 2 times a day May 14, 2015 1 tablet Hydrocodone-Acetaminophen [facility] [address]-70 5-325 MG Orally every 6 hrs PRN November 26, 2015 1 tablet as needed Lyrica [facility] [address]-67 150 MG Orally 3 times a day Oct 01, 2015 1 capsule Sucralfate [facility] [address]-44 1 GM Orally Once a day at bedtime 1 tablet on an empty stomach Prevacid [facility] [address]-30 30 MG Orally Once a day February 15, 2015 1 capsule Linzess [facility] [address]-22 145 MCG Orally Once a day (DX: chronic constipation/abd pain) May 29, 2015 1 capsule HydrOXYzine HCl [facility] [address]-20 50 MG Orally 3 times a day Apr 30, 2015 1/2 in am 1/2 tab noon and 1 tablet at bedtime Procedures Procedure Coding System Code Date Office Visit, Est Pt., Level 3 CPT-4 18380 November 26, 2015 [facility] NOBLL November 26, 2015 Vital Signs Date/Time: November 26, 2015 Temperature 98.4 F Weight 261 lbs Height 62 in BMI 47.73 Index Blood Pressure Diastolic 68 mmHg Blood Pressure Systolic 120 mmHg Cardiac Monitoring Heart Rate 88 bpm Results No Known Results Summary Purpose eClinicalWorks Submission
--- OUTSIDE RECORDS SUMMARY | 2016-12-12 16:31 | XMS REPORT ---
Author Author DAISY MARIN [facility] Address [address] [place] [address] Care Team Providers Care Field Counsel Name Role Phone DAISY MARIN Unavailable PROBLEMS Type Condition ICD9-CM Code [id number] Code Onset Dates Condition Status SNOMED Code Problem Diabetic polyneuropathy associated with type 2 diabetes mellitus E11.42 Active 62700227 Problem Gastroparesis due to secondary diabetes E13.43 Active 7947368 Problem Anxiety F41.9 Active 19484361 Problem Diabetes type 2, uncontrolled E11.65 Active 793079708 Problem Diabetes type 2, controlled E11.9 Active 05069044 Problem Chronic constipation K59.00 Active 554914443 ALLERGIES Unknown Allergies SOCIAL HISTORY No smoking Hx information available PLAN OF CARE VITAL SIGNS MEDICATIONS Medication Instructions Dosage Frequency Start Date End Date Duration Status Ultram 50 mg Orally every 4-6 hours as needed 1 tablet as needed Active RESULTS No Results PROCEDURES No Known procedures IMMUNIZATIONS No Known Immunizations
--- OUTSIDE RECORDS SUMMARY | 2016-12-12 16:31 | XMS REPORT ---
Author DHARA Swift [facility] eClinicalWorks Address Unknown Phone Unavailable Care Team Providers Care Ophthalmic Surgical Assistant Name Role Phone DHARA DURON CP Unavailable Allergies, Adverse Reactions, Alerts Substance Reaction Event Type Sulfamethoxazole-Trimethoprim swelling Drug Allergy Problems Problem Type Condition Code Onset Dates Condition Status Assessment Plantar fascia syndrome M72.2 Active Problem Other abnormal blood chemistry 790.6 Active [...] Instructions Start Date End Date Status Dosage Ultram [facility] [address]-31 50 MG Orally every 4 hrs PRN. Must last one month October 07, 2014 1-2 tablet BusPIRone HCl [facility] [address]-06 5 MG Orally 2 times a day May 14, 2015 1 tablet metformin [facility] 0 850 mg orally Once a day Aug 28, 2014 1 tablet Linzess [facility] [address]-79 290 MCG Orally Once a day (DX: chronic constipation/abd pain) May 29, 2015 Aug 27, 2015 1 capsule Trutest Blood Glucose Meter [facility] [address]-52 not defined Prevacid [facility] [address]-74 30 MG Orally Once a day February 15, 2015 1 capsule HydrOXYzine HCl [facility] [address]-25 50 MG Orally 3 times a day Apr 30, 2015 1/2 in am 1/2 tab noon and 1 tablet at bedtime Lansoprazole [facility] [address]-72 30 MG Orally Once a day May 14, 2015 1 capsule Levemir FlexTouch [facility] [address]-69 100 UNIT/ML Subcutaneous 2 times a day February 17, 2015 22 units Linzess [facility] [address]-60 290 MCG Orally Once a day May 14, 2015 Jun 13, 2015 1 capsule Voltaren [facility] [address]-37 1 % Transdermal 2 times a day Jun 10, 2015 as directed Pen [place] [facility] [address]77 29G X 12MM subcutaneous 4 times a day Inject Trulicity [facility] [address]-77 1.5 MG/0.5ML Subcutaneous Once weekly Apr 30, 2015 Jul 29, 2015 0.5 ml Zofran [facility] [address]-87 8 MG Orally 2 times a day PRN nausea Apr 16, 2015 1 tablet Fetzima Titration [facility] [address]-26 40 mg Orally Once a day Apr 30, 2015 1 tablet Clonazepam [facility] [address]-90 0.5 MG Orally Once a day at bedtime as needed. Must last one month October 07, 2014 1 tablet Hydrochlorothiazide [facility] [address]-88 12.5 MG Orally Once a day Mar 13, 2015 1 capsule Lancets [facility] 0 March 05, 2014 4 times per day Dx 250.02 Lisinopril [facility] [address]-48 2.5 MG Orally Once a day October 07, 2014 1 tablet Lyrica [facility] [address]-64 150 MG Orally Three times a day October 09, 2014 1 capsule Sucralfate [facility] [address]-62 1 GM Orally Once a day at bedtime 1 tablet on an empty stomach Procedures Procedure Coding System Code Date INJ TENDON SHEATH/LIGAMENT CPT-4 10061 Jun 10, 2015 DEPO MEDROL 80 MG/ML CPT-4 J1040 Jun 10, 2015 Office Visit, Est Pt., Level 3 CPT-4 00796 Jun 10, 2015 THER/PROPH/DIAG INJ, SC/IM CPT-4 78712 Jun 10, 2015 Vital Signs Date/Time: Jun 10, 2015 Temperature 97.0 F Weight 270 lbs Height 62 in BMI 49.38 Index Blood Pressure Diastolic 68 mmHg Blood Pressure Systolic 120 mmHg Cardiac Monitoring Heart Rate 102 bpm Results Name Result Date Reference Range Unit Abnormality Flag INJ TENDON SHEATH/LIGAMENT Summary Purpose eClinicalWorks Submission
--- OUTSIDE RECORDS SUMMARY | 2016-12-12 16:31 | XMS REPORT ---
Author Author DAISY MARIN [facility] eClinicalWorks Address Unknown Phone Unavailable Care Team Providers Care Locomotive Lubricating Systems Clerk Name Role Phone DAISY MARIN Unavailable Allergies No Known Allergies Problems Problem Type Condition Code Onset Dates Condition Status Problem Anxiety F41.9 Active Problem Diabetes type 2, uncontrolled E11.65 Active Problem Chronic constipation K59.00 Active Assessment Diabetes type 2, uncontrolled E11.65 Active Medications No Known Medications Procedures Procedure Coding System Code Date COMPREHEN METABOLIC PANEL CPT-4 40012 Jul 23, 2015 LIPID PANEL CPT-4 66381 Jul 23, 2015 ASSAY THYROID STIM HORMONE CPT-4 18859 Jul 23, 2015 VENIPUNCT, ROUTINE* CPT-4 36424 Jul 23, 2015 COMPLETE CBC W/AUTO DIFF WBC CPT-4 23736 Jul 23, 2015 Results Name Result Date Reference Range Unit Abnormality Flag ROUTINE VENIPUNCTURE Summary Purpose eClinicalWorks Submission
--- OUTSIDE RECORDS SUMMARY | 2016-12-12 16:33 | XMS REPORT ---
Author Author DAISY MARIN [facility] Address [address] [place] [address] Care Team Providers Care Toaster Operator Name Role Phone DAISY MARIN Unavailable PROBLEMS Type Condition ICD9-CM Code [id number] Code Onset Dates Condition Status SNOMED Code Problem Diabetic polyneuropathy associated with type 2 diabetes mellitus E11.42 Active 37012930 Problem Gastroparesis due to secondary diabetes E13.43 Active 8096540 Problem Anxiety F41.9 Active 98733986 Problem Diabetes type 2, uncontrolled E11.65 Active 497067378 Problem Diabetes type 2, controlled E11.9 Active 14677861 Problem Chronic constipation K59.00 Active 978608032 ALLERGIES Unknown Allergies SOCIAL HISTORY No smoking Hx information available PLAN OF CARE VITAL SIGNS MEDICATIONS Medication Instructions Dosage Frequency Start Date End Date Duration Status Levothyroxine Sodium 25 MCG Orally Once a day 1 tablet 24h Jul, Active RESULTS No Results PROCEDURES No Known procedures IMMUNIZATIONS No Known Immunizations
--- OUTSIDE RECORDS SUMMARY | 2016-12-12 16:33 | XMS REPORT ---
Author Author DAVID BUSTILLO [facility] eClinicalWorks Address Unknown Phone Unavailable Care Team Providers Care Human Resource Assistant Name Role Phone DAVID BUSTILLO CP Unavailable Allergies No Known Allergies Problems Problem Type Condition Code Onset Dates Condition Status Assessment PTSD (post-traumatic stress disorder) F43.10 Active Problem Anxiety F41.9 Active Problem Diabetes type 2, uncontrolled E11.65 Active Problem Other chronic pain G89.29 Active Problem Acquired hypothyroidism E03.9 Active Problem PTSD (post-traumatic stress disorder) F43.10 Active Problem Diabetes type 2, controlled E11.9 Active Problem Chronic constipation K59.00 Active Problem Diabetic polyneuropathy associated with type 2 diabetes mellitus E11.42 Active Problem Gastroparesis due to secondary diabetes E13.43 Active Medications No Known Medications Procedures Procedure Coding System Code Date Psych diagnostic evaluation, established patient CPT-4 72173 Jun 23, 2016 Results No Known Results Summary Purpose eClinicalWorks Submission
--- OUTSIDE RECORDS SUMMARY | 2016-12-12 16:33 | XMS REPORT | Continuity of Care Document ---
Author Author [facility] Address Unknown Phone Unavailable Allergies Active Description Code Type Severity Reaction Onset Reported/Identified Relationship to Patient Clinical Status Yes sulfADIAZINE Drug Allergy N/A N/A 09/09/2008 Yes Ultram Drug Allergy N/A N/A 09/09/2008 Yes sulfADIAZINE Drug Allergy 09/09/2008 Yes Ultram Drug Allergy 09/09/2008 Yes tramadol 50 mg tablet Drug Allergy N/A N/A 12/29/2012 Medications Problems Date Dx Coded Attending Type Code Diagnosis Diagnosed By 04/16/2008 296.90 MOOD DISORDER 04/16/2008 698.9 PRURITUS NOS 04/16/2008 JOSE COLEMAN MD 296.90 MOOD DISORDER 04/16/2008 JOSE COLEMAN MD 698.9 PRURITUS NOS 04/16/2008 296.90 MOOD DISORDER 04/16/2008 698.9 PRURITUS NOS 04/16/2008 296.90 MOOD DISORDER 04/16/2008 698.9 PRURITUS NOS 04/16/2008 296.90 MOOD DISORDER 04/16/2008 698.9 PRURITUS NOS 04/16/2008 296.90 MOOD DISORDER 04/16/2008 698.9 PRURITUS NOS 04/16/2008 296.90 MOOD DISORDER 04/16/2008 698.9 PRURITUS NOS 04/16/2008 296.90 MOOD DISORDER 04/16/2008 698.9 PRURITUS NOS 04/16/2008 GILLESPIE DO, MILLY K 296.90 MOOD DISORDER 04/16/2008 GILLESPIE DO, MILLY K 698.9 PRURITUS NOS 04/16/2008 GILLESPIE DO MILLY K 296.90 MOOD DISORDER 04/16/2008 GILLESPIE DO MILLY K 698.9 PRURITUS NOS 04/16/2008 GILLESPIE DO MILLY K 296.90 MOOD DISORDER 04/16/2008 GILLESPIE DO MILLY K 698.9 PRURITUS NOS 04/16/2008 NORMA JENN BABIN M 296.90 MOOD DISORDER 04/16/2008 NORMA DDS, JENN M 698.9 PRURITUS NOS 04/16/2008 GILLESPIE DO, MILLY K 296.90 MOOD DISORDER 04/16/2008 GILLESPIE DO, MILLY K 698.9 PRURITUS NOS 04/16/2008 JEANNE DDS, JANELL D 296.90 MOOD DISORDER 04/16/2008 JEANNE DDS, JANELL D 698.9 PRURITUS NOS 04/16/2008 GILLESPIE DO, MILLY K 296.90 MOOD DISORDER 04/16/2008 GILLESPIE DO, MILLY K 698.9 PRURITUS NOS 04/16/2008 HELLWIG [employer] E[employer]IPMENT TECH, DAISY E 296.90 MOOD DISORDER 04/16/2008 HELLWIG BI[employer] EQUIPMENT TECH, DAISY E 698.9 PRURITUS NOS 04/16/2008 GILLESPIE DO, MILLY K 296.90 MOOD DISORDER 04/16/2008 GILLESPIE DO, MILLY K 698.9 PRURITUS NOS 04/16/2008 HELLWIG BI[employer] EQUIPMENT TECH, DAISY E 296.90 MOOD DISORDER 04/16/2008 HELLWIG BI[employer] EQUIPMENT TECH, DAISY E 698.9 PRURITUS NOS 04/16/2008 GILLESPIE DO, MILLY K 296.90 MOOD DISORDER 04/16/2008 GILLESPIE DO, MILLY K 698.9 PRURITUS NOS 04/16/2008 GILLESPIE DO, MILLY K 296.90 MOOD DISORDER 04/16/2008 GILLESPIE DO, MILLY K 698.9 PRURITUS NOS 04/16/2008 HE[employer]WIG [employer] EQUIPMENT TECH, DAISY E 296.90 MOOD DISORDER 04/16/2008 HELLWIG BI[employer] EQUIPMENT TECH, DAISY E 698.9 PRURITUS NOS 04/16/2008 GILLESPIE DO, MILLY K 296.90 MOOD DISORDER 04/16/2008 GILLESPIE DO, MILLY K 698.9 PRURITUS NOS 04/16/2008 HELLWIG [employer] EQUIPMENT TECH, DAISY E 296.90 MOOD DISORDER 04/16/2008 HELLWIG BIOM[employer] EQUIPMENT TECH, DAISY E 698.9 PRURITUS NOS 04/16/2008 HE[employer]IG [employer] EQUIPMENT TECH, DAISY E 296.90 MOOD DISORDER 04/16/2008 HELLWIG [employer] EQUIPMENT TECH, DAISY E 698.9 PRURITUS NOS 04/16/2008 HELLWIG BI[employer] EQUIPMENT TECH, DAISY E 296.90 MOOD DISORDER 04/16/2008 HELLWIG [employer] EQUIPMENT TECH, DAISY E 698.9 PRURITUS NOS 04/16/2008 GILLESPIE DO, MILLY K 296.90 MOOD DISORDER 04/16/2008 GILLESPIE DO, MILLY K 698.9 PRURITUS NOS 05/15/2008 338.4 PAIN CHRONIC SYNDROME 05/15/2008 JOSE COLEMAN MD 338.4 PAIN CHRONIC SYNDROME 05/15/2008 338.4 PAIN CHRONIC SYNDROME 05/15/2008 338.4 PAIN CHRONIC SYNDROME 05/15/2008 338.4 PAIN CHRONIC SYNDROME 05/15/2008 338.4 PAIN CHRONIC SYNDROME 05/15/2008 338.4 PAIN CHRONIC SYNDROME 05/15/2008 338.4 PAIN CHRONIC SYNDROME 05/15/2008 GILLESPIE DO, MILLY K 338.4 PAIN CHRONIC SYNDROME 05/15/2008 GILLESPIE DO, MILLY K 338.4 PAIN CHRONIC SYNDROME 05/15/2008 GILLESPIE DO, MILLY K 338.4 PAIN CHRONIC SYNDROME 05/15/2008 NORMA DDS, JENN Dietrich 338.4 PAIN CHRONIC SYNDROME 05/15/2008 GILLESPIE DO, MILLY K 338.4 PAIN CHRONIC SYNDROME 05/15/2008 JEANNE ZHOUS, JANELL Thibodeaux 338.4 PAIN CHRONIC SYNDROME 05/15/2008 GILLESPIE DO, MILLY K 338.4 PAIN CHRONIC SYNDROME 05/15/2008 [employer] E[employer]IPMENT TECH, DAISY E 338.4 PAIN CHRONIC SYNDROME 05/15/2008 GILLESPIE DO, MILLY K 338.4 PAIN CHRONIC SYNDROME 05/15/2008 HE[employer] EQUIPMENT TECH, DAISY E 338.4 PAIN CHRONIC SYNDROME 05/15/2008 GILLESPIE DO, MILLY K 338.4 PAIN CHRONIC SYNDROME 05/15/2008 GILLESPIE DO, MILLY K 338.4 PAIN CHRONIC SYNDROME 05/15/2008 HE[employer]WIG [employer] EQUIPMENT TECH, DAISY E 338.4 PAIN CHRONIC SYNDROME 05/15/2008 GILLESPIE DO, MILLY K 338.4 PAIN CHRONIC SYNDROME 05/15/2008 HE[employer]WIG [employer] EQUIPMENT TECH, DAISY E 338.4 PAIN CHRONIC SYNDROME 05/15/2008 HE[employer]WIG [employer] EQUIPMENT TECH, DAISY E 338.4 PAIN CHRONIC SYNDROME 05/15/2008 HE[employer]WIG [employer] EQUIPMENT TECH, DAISY E 338.4 PAIN CHRONIC SYNDROME 05/15/2008 GILLESPIE DO, MILLY K 338.4 PAIN CHRONIC SYNDROME 05/27/2008 309.81 AN PTSD 05/27/2008 JOSE COLEMAN MD 309.81 AN PTSD 05/27/2008 309.81 AN PTSD 05/27/2008 309.81 AN PTSD 05/27/2008 309.81 AN PTSD 05/27/2008 309.81 AN PTSD 05/27/2008 309.81 AN PTSD 05/27/2008 309.81 AN PTSD 05/27/2008 GILLESPIE DO, MILLY K 309.81 AN PTSD 05/27/2008 GILLESPIE DO, MILLY K 309.81 AN PTSD 05/27/2008 GILLESPIE DO, MILLY K 309.81 AN PTSD 05/27/2008 NORMA DDS, JENN M 309.81 AN PTSD 05/27/2008 GILLESPIE DO, MILLY K 309.81 AN PTSD 05/27/2008 JEANNE DDS, JANELL D 309.81 AN PTSD 05/27/2008 GILLESPIE DO, MILLY K 309.81 AN PTSD 05/27/2008 [employer]IP[employer] TECH, DAISY E 309.81 AN PTSD 05/27/2008 GILLESPIE DO, MILLY K 309.81 AN PTSD 05/27/2008 [employer] EQUIPMENT TECH, DAISY E 309.81 AN PTSD 05/27/2008 GILLESPIE DO MILLY K 309.81 AN PTSD 05/27/2008 GILLESPIE DO, MILLY K 309.81 AN PTSD 05/27/2008 [employer] EQUIPMENT TECH, DAISY E 309.81 AN PTSD 05/27/2008 GILLESPIE DO, MILLY K 309.81 AN PTSD 05/27/2008 [employer] EQUIPMENT TECH, DAISY E 309.81 AN PTSD 05/27/2008 HE[employer] EQUIPMENT TECH, DAISY E 309.81 AN PTSD 05/27/2008 [employer] EQUIPMENT TECH, DAISY E 309.81 AN PTSD 05/27/2008 GILLESPIE DO, MILLY K 309.81 AN PTSD 06/27/2008 300.00 AN ANXIETY UNSPEC 06/27/2008 300.15 DS DISSOCIATIVE DIS NOS 06/27/2008 307.47 SI DYSSOMNIA NOS 06/27/2008 311 MO DEPRESSIVE DISORDER NOS 06/27/2008 316 PF PSYCHIC FACTORS MED COND 06/27/2008 V15.41 PERSONAL HISTORY OF PHYSICAL ABUSE 06/27/2008 V58.69 LONG-TERM (CURRENT) USE OF OTHER MEDICATIONS 06/27/2008 JOSE COLEMAN MD 300.00 AN ANXIETY UNSPEC 06/27/2008 JOSE COLEMAN MD 300.15 DS DISSOCIATIVE DIS NOS 06/27/2008 JOSE COLEMAN MD 307.47 SI DYSSOMNIA NOS 06/27/2008 JOSE COLEMAN MD 311 MO DEPRESSIVE DISORDER NOS 06/27/2008 JOSE COLEMAN MD 316 PF PSYCHIC FACTORS MED COND 06/27/2008 JOSE COLEMAN MD V15.41 PERSONAL HISTORY OF PHYSICAL ABUSE 06/27/2008 JOSE COLEMAN MD V58.69 LONG-TERM (CURRENT) USE OF OTHER MEDICATIONS 06/27/2008 300.00 AN ANXIETY UNSPEC 06/27/2008 300.15 DS DISSOCIATIVE DIS NOS 06/27/2008 307.47 SI DYSSOMNIA NOS 06/27/2008 311 MO DEPRESSIVE DISORDER NOS 06/27/2008 316 PF PSYCHIC FACTORS MED COND 06/27/2008 V15.41 PERSONAL HISTORY OF PHYSICAL ABUSE 06/27/2008 V58.69 LONG-TERM (CURRENT) USE OF OTHER MEDICATIONS 06/27/2008 300.00 AN ANXIETY UNSPEC 06/27/2008 300.15 DS DISSOCIATIVE DIS NOS 06/27/2008 307.47 SI DYSSOMNIA NOS 06/27/2008 311 MO DEPRESSIVE DISORDER NOS 06/27/2008 316 PF PSYCHIC FACTORS MED COND 06/27/2008 V15.41 PERSONAL HISTORY OF PHYSICAL ABUSE 06/27/2008 V58.69 LONG-TERM (CURRENT) USE OF OTHER MEDICATIONS 06/27/2008 300.00 AN ANXIETY UNSPEC 06/27/2008 300.15 DS DISSOCIATIVE DIS NOS 06/27/2008 307.47 SI DYSSOMNIA NOS 06/27/2008 311 MO DEPRESSIVE DISORDER NOS 06/27/2008 316 PF PSYCHIC FACTORS MED COND 06/27/2008 V15.41 PERSONAL HISTORY OF PHYSICAL ABUSE 06/27/2008 V58.69 LONG-TERM (CURRENT) USE OF OTHER MEDICATIONS 06/27/2008 300.00 AN ANXIETY UNSPEC 06/27/2008 300.15 DS DISSOCIATIVE DIS NOS 06/27/2008 307.47 SI DYSSOMNIA NOS 06/27/2008 311 MO DEPRESSIVE DISORDER NOS 06/27/2008 316 PF PSYCHIC FACTORS MED COND 06/27/2008 V15.41 PERSONAL HISTORY OF PHYSICAL ABUSE 06/27/2008 V58.69 LONG-TERM (CURRENT) USE OF OTHER MEDICATIONS 06/27/2008 300.00 AN ANXIETY UNSPEC 06/27/2008 300.15 DS DISSOCIATIVE DIS NOS 06/27/2008 307.47 SI DYSSOMNIA NOS 06/27/2008 311 MO DEPRESSIVE DISORDER NOS 06/27/2008 316 PF PSYCHIC FACTORS MED COND 06/27/2008 V15.41 PERSONAL HISTORY OF PHYSICAL ABUSE 06/27/2008 V58.69 LONG-TERM (CURRENT) USE OF OTHER MEDICATIONS 06/27/2008 300.00 AN ANXIETY UNSPEC 06/27/2008 300.15 DS DISSOCIATIVE DIS NOS 06/27/2008 307.47 SI DYSSOMNIA NOS 06/27/2008 311 MO DEPRESSIVE DISORDER NOS 06/27/2008 316 PF PSYCHIC FACTORS MED COND 06/27/2008 V15.41 PERSONAL HISTORY OF PHYSICAL ABUSE 06/27/2008 V58.69 LONG-TERM (CURRENT) USE OF OTHER MEDICATIONS 06/27/2008 GILLESPIE DO, MILLY K 300.00 AN ANXIETY UNSPEC 06/27/2008 GILLESPIE DO, MILLY K 300.15 DS DISSOCIATIVE DIS NOS 06/27/2008 GILLESPIE DO, MILLY K 307.47 SI DYSSOMNIA NOS 06/27/2008 GILLESPIE DO, MILLY K 311 MO DEPRESSIVE DISORDER NOS 06/27/2008 GILLESPIE DO, MILLY K 316 PF PSYCHIC FACTORS MED COND 06/27/2008 JOSE MIGUEL BOGGS MILLY K V15.41 PERSONAL HISTORY OF PHYSICAL ABUSE 06/27/2008 GILLESPIE DO, MILLY K V58.69 LONG-TERM (CURRENT) USE OF OTHER MEDICATIONS 06/27/2008 GILLESPIE DO, MILLY K 300.00 AN ANXIETY UNSPEC 06/27/2008 GILLESPIE DO, MILLY K 300.15 DS DISSOCIATIVE DIS NOS 06/27/2008 GILLESPIE DO, MILLY K 307.47 SI DYSSOMNIA NOS 06/27/2008 GILLESPIE DO, MILLY K 311 MO DEPRESSIVE DISORDER NOS 06/27/2008 GILLESPIE DO, MILLY K 316 PF PSYCHIC FACTORS MED COND 06/27/2008 GILLESPIE DO, MILLY K V15.41 PERSONAL HISTORY OF PHYSICAL ABUSE 06/27/2008 GILLESPIE DO, MILLY K V58.69 LONG-TERM (CURRENT) USE OF OTHER MEDICATIONS 06/27/2008 GILLESPEI DO, MILLY K 300.00 AN ANXIETY UNSPEC 06/27/2008 GILLESPIE DO, MILLY K 300.15 DS DISSOCIATIVE DIS NOS 06/27/2008 GILLESPIE DO, MILLY K 307.47 SI DYSSOMNIA NOS 06/27/2008 GILLESPIE DO, MILLY K 311 MO DEPRESSIVE DISORDER NOS 06/27/2008 GILLESPIE DO, MILLY K 316 PF PSYCHIC FACTORS MED COND 06/27/2008 GILLESPIE DO MILLY K V15.41 PERSONAL HISTORY OF PHYSICAL ABUSE 06/27/2008 GILLESPIE DO MILLY K V58.69 LONG-TERM (CURRENT) USE OF OTHER MEDICATIONS 06/27/2008 NORMA DDS, JENN M 300.00 AN ANXIETY UNSPEC 06/27/2008 NORMA DDS, JENN M 300.15 DS DISSOCIATIVE DIS NOS 06/27/2008 NORMA DDS, JENN M 307.47 SI DYSSOMNIA NOS 06/27/2008 NORMA DDS, JENN M 311 MO DEPRESSIVE DISORDER NOS 06/27/2008 NORMA DDS, JENN M 316 PF PSYCHIC FACTORS MED COND 06/27/2008 NORMA DDS, JENN M V15.41 PERSONAL HISTORY OF PHYSICAL ABUSE 06/27/2008 NORMA DDS, JENN M V58.69 LONG-TERM (CURRENT) USE OF OTHER MEDICATIONS 06/27/2008 GILLESPIE DO MILLY K 300.00 AN ANXIETY UNSPEC 06/27/2008 JOSE MIGUEL BOGGS MILLY K 300.15 DS DISSOCIATIVE DIS NOS 06/27/2008 JOSE MIGUEL BOGGS MILLY K 307.47 SI DYSSOMNIA NOS 06/27/2008 GILLESPIE DO MILLY K 311 MO DEPRESSIVE DISORDER NOS 06/27/2008 GILLESPIE DO MILLY K 316 PF PSYCHIC FACTORS MED COND 06/27/2008 JOSE MIGUEL BOGGS MILLY K V15.41 PERSONAL HISTORY OF PHYSICAL ABUSE 06/27/2008 JOSE MIGUEL BOGGS MILLY K V58.69 LONG-TERM (CURRENT) USE OF OTHER MEDICATIONS 06/27/2008 JEANNE DDSADENIKEIE D 300.00 AN ANXIETY UNSPEC 06/27/2008 JEANNE DDSADENIKEIE D 300.15 DS DISSOCIATIVE DIS NOS 06/27/2008 JEANNE DDS, JANELL D 307.47 SI DYSSOMNIA NOS 06/27/2008 JEANNE DDS, JANELL D 311 MO DEPRESSIVE DISORDER NOS 06/27/2008 JEANNE DDS, JANELL D 316 PF PSYCHIC FACTORS MED COND 06/27/2008 JEANNE DDSADENIKEIE D V15.41 PERSONAL HISTORY OF PHYSICAL ABUSE 06/27/2008 JEANNE DDSADENIKEIE D V58.69 LONG-TERM (CURRENT) USE OF OTHER MEDICATIONS 06/27/2008 GILLESPIE DO MILLY K 300.00 AN ANXIETY UNSPEC 06/27/2008 GILLESPIE DO MILLY K 300.15 DS DISSOCIATIVE DIS NOS 06/27/2008 GILLESPIE DO, MILLY K 307.47 SI DYSSOMNIA NOS 06/27/2008 GILLESPIE DO, MILLY K 311 MO DEPRESSIVE DISORDER NOS 06/27/2008 GILLESPIE DO, MILLY K 316 PF PSYCHIC FACTORS MED COND 06/27/2008 GILLESPIE DO MILLY K V15.41 PERSONAL HISTORY OF PHYSICAL ABUSE 06/27/2008 GILLESPIE DO MILLY K V58.69 LONG-TERM (CURRENT) USE OF OTHER MEDICATIONS 06/27/2008 HE[employer] E[employer]IPMENT TECH, DAISY E 300.00 AN ANXIETY UNSPEC 06/27/2008 HE[employer] BI[employer] EQUIPMENT TECH, DAISY E 300.15 DS DISSOCIATIVE DIS NOS 06/27/2008 HE[employer] EQUIPMENT TECH, DAISY E 307.47 SI DYSSOMNIA NOS 06/27/2008 HE[employer] EQUIPMENT TECH, DAISY E 311 MO DEPRESSIVE DISORDER NOS 06/27/2008 HE[employer] EQUIPMENT TECH, DAISY E 316 PF PSYCHIC FACTORS MED COND 06/27/2008 HE[employer]IG [employer] EQUIPMENT TECH DAISY E V15.41 PERSONAL HISTORY OF PHYSICAL ABUSE 06/27/2008 [employer] EQUIPMENT TECH, DAISY E V58.69 LONG-TERM (CURRENT) USE OF OTHER MEDICATIONS 06/27/2008 JOSE MIGUEL BOGGS MILLY K 300.00 AN ANXIETY UNSPEC 06/27/2008 JOSE MIGUEL BOGGS MILLY K 300.15 DS DISSOCIATIVE DIS NOS 06/27/2008 GILLESPIE DO MILLY K 307.47 SI DYSSOMNIA NOS 06/27/2008 JOSE MIGUEL BOGGS MILLY K 311 MO DEPRESSIVE DISORDER NOS 06/27/2008 JOSE MIGUEL BOGGS MILLY K 316 PF PSYCHIC FACTORS MED COND 06/27/2008 GILLESPIE DO MILLY K V15.41 PERSONAL HISTORY OF PHYSICAL ABUSE 06/27/2008 GILLESPIE DO MILLY K V58.69 LONG-TERM (CURRENT) USE OF OTHER MEDICATIONS 06/27/2008 HE[employer] EQUIPMENT TECH, DAISY E 300.00 AN ANXIETY UNSPEC 06/27/2008 HE[employer]WIG BI[employer] EQUIPMENT TECH, DAISY E 300.15 DS DISSOCIATIVE DIS NOS 06/27/2008 HE[employer]WIG BI[employer] EQUIPMENT TECH, DAISY E 307.47 SI DYSSOMNIA NOS 06/27/2008 HE[employer] BI[employer] EQUIPMENT TECH, DAISY E 311 MO DEPRESSIVE DISORDER NOS 06/27/2008 DAISY MARIN APRN E 316 PF PSYCHIC FACTORS MED COND 06/27/2008 ENRIQUE MARIN APRNSIE E V15.41 PERSONAL HISTORY OF PHYSICAL ABUSE 06/27/2008 RYAN MARIN APRNE E V58.69 LONG-TERM (CURRENT) USE OF OTHER MEDICATIONS 06/27/2008 GILLESPIE DO MILLY K 300.00 AN ANXIETY UNSPEC 06/27/2008 JOSE MIGUEL BOGGS MILLY K 300.15 DS DISSOCIATIVE DIS NOS 06/27/2008 GILLESPIE DO MILLY K 307.47 SI DYSSOMNIA NOS 06/27/2008 GILLESPIE DO, MILLY K 311 MO DEPRESSIVE DISORDER NOS 06/27/2008 GILLESPIE DO, MILLY K 316 PF PSYCHIC FACTORS MED COND 06/27/2008 GILLESPIE DO MILLY K V15.41 PERSONAL HISTORY OF PHYSICAL ABUSE 06/27/2008 GILLESPIE DO MILLY K V58.69 LONG-TERM (CURRENT) USE OF OTHER MEDICATIONS 06/27/2008 GILLESPIE DO MILLY K 300.00 AN ANXIETY UNSPEC 06/27/2008 JOSE MIGUEL BOGGS MILLY K 300.15 DS DISSOCIATIVE DIS NOS 06/27/2008 GILLESPIE DO MILLY K 307.47 SI DYSSOMNIA NOS 06/27/2008 GILLESPIE DO, MILLY K 311 MO DEPRESSIVE DISORDER NOS 06/27/2008 GILLESPIE DO, MILLY K 316 PF PSYCHIC FACTORS MED COND 06/27/2008 GILLESPIE DO MILLY K V15.41 PERSONAL HISTORY OF PHYSICAL ABUSE 06/27/2008 GILLESPIE DO MILLY K V58.69 LONG-TERM (CURRENT) USE OF OTHER MEDICATIONS 06/27/2008 ENRIQUE MARIN APRNSIE E 300.00 AN ANXIETY UNSPEC 06/27/2008 ENRIQUE MARIN APRNSIE E 300.15 DS DISSOCIATIVE DIS NOS 06/27/2008 ENRIQUE MARIN APRNSIE E 307.47 SI DYSSOMNIA NOS 06/27/2008 ENRIQUE MARIN APRNSIE E 311 MO DEPRESSIVE DISORDER NOS 06/27/2008 ENRIQUE MARIN APRNSIE E 316 PF PSYCHIC FACTORS MED COND 06/27/2008 ENRIQUE MARIN APRNSIE E V15.41 PERSONAL HISTORY OF PHYSICAL ABUSE 06/27/2008 ENRIQUE MARIN APRNSIE E V58.69 LONG-TERM (CURRENT) USE OF OTHER MEDICATIONS 06/27/2008 GILLESPIE DO, MILLY K 300.00 AN ANXIETY UNSPEC 06/27/2008 GILLESPIE DO, MILLY K 300.15 DS DISSOCIATIVE DIS NOS 06/27/2008 GILLESPIE DO, MILLY K 307.47 SI DYSSOMNIA NOS 06/27/2008 GILLESPIE DO, MILLY K 311 MO DEPRESSIVE DISORDER NOS 06/27/2008 JOSE MIGUEL BOGGS, MILLY K 316 PF PSYCHIC FACTORS MED COND 06/27/2008 JOSE MIGUEL BOGGS, MILLY K V15.41 PERSONAL HISTORY OF PHYSICAL ABUSE 06/27/2008 JOSE MIGUEL BOGGS, MILLY K V58.69 LONG-TERM (CURRENT) USE OF OTHER MEDICATIONS 06/27/2008 HE[employer] EQUIPMENT TECH, DAISY E 300.00 AN ANXIETY UNSPEC 06/27/2008 HE[employer]WIG BI[employer] EQUIPMENT TECH, DAISY E 300.15 DS DISSOCIATIVE DIS NOS 06/27/2008 HE[employer]WIG BI[employer] EQUIPMENT TECH, DAISY E 307.47 SI DYSSOMNIA NOS 06/27/2008 HE[employer]WIG BI[employer] EQUIPMENT TECH, DAISY E 311 MO DEPRESSIVE DISORDER NOS 06/27/2008 HE[employer] BI[employer] EQUIPMENT TECH, DAISY E 316 PF PSYCHIC FACTORS MED COND 06/27/2008 HE[employer]WIG BI[employer] EQUIPMENT TECH, DAISY E V15.41 PERSONAL HISTORY OF PHYSICAL ABUSE 06/27/2008 [employer] EQUIPMENT TECH, DAISY E V58.69 LONG-TERM (CURRENT) USE OF OTHER MEDICATIONS 06/27/2008 HE[employer] EQUIPMENT TECH, DAISY E 300.00 AN ANXIETY UNSPEC 06/27/2008 HE[employer] BI[employer] EQUIPMENT TECH, DAISY E 300.15 DS DISSOCIATIVE DIS NOS 06/27/2008 HE[employer]WIG BI[employer] EQUIPMENT TECH, DAISY E 307.47 SI DYSSOMNIA NOS 06/27/2008 HE[employer] EQUIPMENT TECH, DAISY E 311 MO DEPRESSIVE DISORDER NOS 06/27/2008 [employer] EQUIPMENT TECH, DAISY E 316 PF PSYCHIC FACTORS MED COND 06/27/2008 [employer] EQUIPMENT TECH, DAISY E V15.41 PERSONAL HISTORY OF PHYSICAL ABUSE 06/27/2008 HE[employer] EQUIPMENT TECH, DAISY E V58.69 LONG-TERM (CURRENT) USE OF OTHER MEDICATIONS 06/27/2008 HE[employer] EQUIPMENT TECH, DAISY E 300.00 AN ANXIETY UNSPEC 06/27/2008 [employer] EQUIPMENT TECH, DAISY E 300.15 DS DISSOCIATIVE DIS NOS 06/27/2008 CAITLINShereeGUZMAN IBARRAKulwant DAISY E 307.47 SI DYSSOMNIA NOS 06/27/2008 RYAN MARIN APRNE E 311 MO DEPRESSIVE DISORDER NOS 06/27/2008 CAITLINGAIL BIOMEDICAL EQUIPMENT TECH, DAISY E 316 PF PSYCHIC FACTORS MED COND 06/27/2008 CAITLINGAIL BIOMEDICAL EQUIPMENT TECHRYAN BlumE E V15.41 PERSONAL HISTORY OF PHYSICAL ABUSE 06/27/2008 DAISY MARIN APRN E V58.69 LONG-TERM (CURRENT) USE OF OTHER MEDICATIONS 06/27/2008 GILLESPIE DO MILLY K 300.00 AN ANXIETY UNSPEC 06/27/2008 GILLESPIE DO MILLY K 300.15 DS DISSOCIATIVE DIS NOS 06/27/2008 GILLESPIE DO MILLY K 307.47 SI DYSSOMNIA NOS 06/27/2008 GILLESPIE DO, MILLY K 311 MO DEPRESSIVE DISORDER NOS 06/27/2008 GILLESPIE DO, MILLY K 316 PF PSYCHIC FACTORS MED COND 06/27/2008 JOSE MIGUEL BOGGS MILLY K V15.41 PERSONAL HISTORY OF PHYSICAL ABUSE 06/27/2008 JOSE MIGUEL BOGGS MILLY K V58.69 LONG-TERM (CURRENT) USE OF OTHER MEDICATIONS 07/29/2008 110.5 DERMATOPHYTOSIS TINEA IMBRICATA 07/29/2008 724.5 BACKACHE UNSPECIFIED 07/29/2008 788.30 INCONTINENCE ENURESOS/URINARY 07/29/2008 JOSE COLEMAN MD 110.5 DERMATOPHYTOSIS TINEA IMBRICATA 07/29/2008 JOSE COLEMAN MD 724.5 BACKACHE UNSPECIFIED 07/29/2008 JOSE COLEMAN MD 788.30 INCONTINENCE ENURESOS/URINARY 07/29/2008 110.5 DERMATOPHYTOSIS TINEA IMBRICATA 07/29/2008 724.5 BACKACHE UNSPECIFIED 07/29/2008 788.30 INCONTINENCE ENURESOS/URINARY 07/29/2008 110.5 DERMATOPHYTOSIS TINEA IMBRICATA 07/29/2008 724.5 BACKACHE UNSPECIFIED 07/29/2008 788.30 INCONTINENCE ENURESOS/URINARY 07/29/2008 110.5 DERMATOPHYTOSIS TINEA IMBRICATA 07/29/2008 724.5 BACKACHE UNSPECIFIED 07/29/2008 788.30 INCONTINENCE ENURESOS/URINARY 07/29/2008 110.5 DERMATOPHYTOSIS TINEA IMBRICATA 07/29/2008 724.5 BACKACHE UNSPECIFIED 07/29/2008 788.30 INCONTINENCE ENURESOS/URINARY 07/29/2008 110.5 DERMATOPHYTOSIS TINEA IMBRICATA 07/29/2008 724.5 BACKACHE UNSPECIFIED 07/29/2008 788.30 INCONTINENCE ENURESOS/URINARY 07/29/2008 110.5 DERMATOPHYTOSIS TINEA IMBRICATA 07/29/2008 724.5 BACKACHE UNSPECIFIED 07/29/2008 788.30 INCONTINENCE ENURESOS/URINARY 07/29/2008 GILLESPIE DO, MILLY K 110.5 DERMATOPHYTOSIS TINEA IMBRICATA 07/29/2008 GILLESPIE DO, MILLY K 724.5 BACKACHE UNSPECIFIED 07/29/2008 GILLESPIE DO, MILLY K 788.30 INCONTINENCE ENURESOS/URINARY 07/29/2008 GILLESPIE DO, MILLY K 110.5 DERMATOPHYTOSIS TINEA IMBRICATA 07/29/2008 GILLESPIE DO, MILLY K 724.5 BACKACHE UNSPECIFIED 07/29/2008 GILLESPIE DO, MILLY K 788.30 INCONTINENCE ENURESOS/URINARY 07/29/2008 GILLESPIE DO, MILLY K 110.5 DERMATOPHYTOSIS TINEA IMBRICATA 07/29/2008 GILLESPIE DO, MILLY K 724.5 BACKACHE UNSPECIFIED 07/29/2008 GILLESPIE DO, MILLY K 788.30 INCONTINENCE ENURESOS/URINARY 07/29/2008 NORMA DDS, JENN M 110.5 DERMATOPHYTOSIS TINEA IMBRICATA 07/29/2008 NORMA DDS, JENN M 724.5 BACKACHE UNSPECIFIED 07/29/2008 NORMA DDS, JENN M 788.30 INCONTINENCE ENURESOS/URINARY 07/29/2008 GILLESPIE DO MILLY K 110.5 DERMATOPHYTOSIS TINEA IMBRICATA 07/29/2008 GILLESPIE DO, MILLY K 724.5 BACKACHE UNSPECIFIED 07/29/2008 GILLESPIE DO, MILLY K 788.30 INCONTINENCE ENURESOS/URINARY 07/29/2008 JEANNE BABIN, JANELL Thibodeaux 110.5 DERMATOPHYTOSIS TINEA IMBRICATA 07/29/2008 JEANNE DDS, JANELL Thibodeaux 724.5 BACKACHE UNSPECIFIED 07/29/2008 JEANNE DDS, JANELL Thibodeaux 788.30 INCONTINENCE ENURESOS/URINARY 07/29/2008 GILLESPIE DO, MILLY K 110.5 DERMATOPHYTOSIS TINEA IMBRICATA 07/29/2008 GILLESPIE DO, MILLY K 724.5 BACKACHE UNSPECIFIED 07/29/2008 GILLESPIE DO, MILLY K 788.30 INCONTINENCE ENURESOS/URINARY 07/29/2008 HELLENRIQUE HINDS APRNSIE E 110.5 DERMATOPHYTOSIS TINEA IMBRICATA 07/29/2008 CAITLINLENRIQUE HINDS APRNSIE E 724.5 BACKACHE UNSPECIFIED 07/29/2008 CAITLINLENRIQUE HINDS APRNSIE E 788.30 INCONTINENCE ENURESOS/URINARY 07/29/2008 GILLESPIE DO, MILLY K 110.5 DERMATOPHYTOSIS TINEA IMBRICATA 07/29/2008 GILLESPIE DO, MILLY K 724.5 BACKACHE UNSPECIFIED 07/29/2008 GILLESPIE DO, MILLY K 788.30 INCONTINENCE ENURESOS/URINARY 07/29/2008 HELLENRIQUE HINDS APRNSIE E 110.5 DERMATOPHYTOSIS TINEA IMBRICATA 07/29/2008 ENRIQUE MARIN APRNSIE E 724.5 BACKACHE UNSPECIFIED 07/29/2008 CAITLINLGUZMAN BIOMEDICAL EQUIPMENT TECH, DAISY E 788.30 INCONTINENCE ENURESOS/URINARY 07/29/2008 GILLESPIE DO, MILLY K 110.5 DERMATOPHYTOSIS TINEA IMBRICATA 07/29/2008 GILLESPIE DO, MILLY K 724.5 BACKACHE UNSPECIFIED 07/29/2008 GILLESPIE DO, MILLY K 788.30 INCONTINENCE ENURESOS/URINARY 07/29/2008 GILLESPIE DO, MILLY K 110.5 DERMATOPHYTOSIS TINEA IMBRICATA 07/29/2008 GILLESPIE DO, MILLY K 724.5 BACKACHE UNSPECIFIED 07/29/2008 GILLESPIE DO, MILLY K 788.30 INCONTINENCE ENURESOS/URINARY 07/29/2008 HELLGUZMAN BIOMEDICAL EQUIPMENT TECH, DAISY E 110.5 DERMATOPHYTOSIS TINEA IMBRICATA 07/29/2008 CAITLINLENRIQUE HINDS APRNSIE E 724.5 BACKACHE UNSPECIFIED 07/29/2008 HELLWIG BIOMEDICAL EQUIPMENT TECH, DAISY E 788.30 INCONTINENCE ENURESOS/URINARY 07/29/2008 GILLESPIE DO, MILLY K 110.5 DERMATOPHYTOSIS TINEA IMBRICATA 07/29/2008 GILLESPIE DO, MILLY K 724.5 BACKACHE UNSPECIFIED 07/29/2008 GILLESPIE DO, MILLY K 788.30 INCONTINENCE ENURESOS/URINARY 07/29/2008 HELLWIG BIOMEDICAL EQUIPMENT TECH, DAISY E 110.5 DERMATOPHYTOSIS TINEA IMBRICATA 07/29/2008 HELLWIG BIOMEDICAL EQUIPMENT TECH, DAISY E 724.5 BACKACHE UNSPECIFIED 07/29/2008 HELLWIG BIOMEDICAL EQUIPMENT TECH, DAISY E 788.30 INCONTINENCE ENURESOS/URINARY 07/29/2008 HELLWIG BIOMEDICAL EQUIPMENT TECH, DAISY E 110.5 DERMATOPHYTOSIS TINEA IMBRICATA 07/29/2008 HELLWIG BIOMEDICAL EQUIPMENT TECH, DAISY E 724.5 BACKACHE UNSPECIFIED 07/29/2008 HELLWIG BIOMEDICAL EQUIPMENT TECH, DAISY E 788.30 INCONTINENCE ENURESOS/URINARY 07/29/2008 HELLWIG BIOMEDICAL EQUIPMENT TECH, DAISY E 110.5 DERMATOPHYTOSIS TINEA IMBRICATA 07/29/2008 HELLWIG BIOMEDICAL EQUIPMENT TECH, DAISY E 724.5 BACKACHE UNSPECIFIED 07/29/2008 HELLWIG BIOMEDICAL EQUIPMENT TECH, DAISY E 788.30 INCONTINENCE ENURESOS/URINARY 07/29/2008 GILLESPIE DO, MILLY K 110.5 DERMATOPHYTOSIS TINEA IMBRICATA 07/29/2008 GILLESPIE DO, MILLY K 724.5 BACKACHE UNSPECIFIED 07/29/2008 GILLESPIE DO, MILLY K 788.30 INCONTINENCE ENURESOS/URINARY 09/09/2008 278.0 WEIGHT MANAGEMENT 09/09/2008 278.01 OBESITY MORBID 09/09/2008 300.02 GENERALIZED ANXIETY DISORDER 09/09/2008 459.81 CHRONIC CUTANEOUS ULCER VENOUS STASIS 09/09/2008 789.00 abdominal pain 09/09/2008 JOSE COLEMAN MD 278.0 WEIGHT MANAGEMENT 09/09/2008 JOSE COLEMAN MD 278.01 OBESITY MORBID 09/09/2008 JOSE COLEMAN MD 300.02 GENERALIZED ANXIETY DISORDER 09/09/2008 JOSE COLEMAN MD 459.81 CHRONIC CUTANEOUS ULCER VENOUS STASIS 09/09/2008 JARED GODFREY, JOSE 789.00 abdominal pain 09/09/2008 278.0 WEIGHT MANAGEMENT 09/09/2008 278.01 OBESITY MORBID 09/09/2008 300.02 GENERALIZED ANXIETY DISORDER 09/09/2008 459.81 CHRONIC CUTANEOUS ULCER VENOUS STASIS 09/09/2008 789.00 abdominal pain 09/09/2008 278.0 WEIGHT MANAGEMENT 09/09/2008 278.01 OBESITY MORBID 09/09/2008 300.02 GENERALIZED ANXIETY DISORDER 09/09/2008 459.81 CHRONIC CUTANEOUS ULCER VENOUS STASIS 09/09/2008 789.00 abdominal pain 09/09/2008 278.0 WEIGHT MANAGEMENT 09/09/2008 278.01 OBESITY MORBID 09/09/2008 300.02 GENERALIZED ANXIETY DISORDER 09/09/2008 459.81 CHRONIC CUTANEOUS ULCER VENOUS STASIS 09/09/2008 789.00 abdominal pain 09/09/2008 278.0 WEIGHT MANAGEMENT 09/09/2008 278.01 OBESITY MORBID 09/09/2008 300.02 GENERALIZED ANXIETY DISORDER 09/09/2008 459.81 CHRONIC CUTANEOUS ULCER VENOUS STASIS 09/09/2008 789.00 abdominal pain 09/09/2008 278.0 WEIGHT MANAGEMENT 09/09/2008 278.01 OBESITY MORBID 09/09/2008 300.02 GENERALIZED ANXIETY DISORDER 09/09/2008 459.81 CHRONIC CUTANEOUS ULCER VENOUS STASIS 09/09/2008 789.00 abdominal pain 09/09/2008 278.0 WEIGHT MANAGEMENT 09/09/2008 278.01 OBESITY MORBID 09/09/2008 300.02 GENERALIZED ANXIETY DISORDER 09/09/2008 459.81 CHRONIC CUTANEOUS ULCER VENOUS STASIS 09/09/2008 789.00 abdominal pain 09/09/2008 JOSE MIGUEL BOGGS MILLY K 278.0 WEIGHT MANAGEMENT 09/09/2008 GILLESPIE DO MILLY K 278.01 OBESITY MORBID 09/09/2008 ENRIQUE GILLESPIE DOA K 300.02 GENERALIZED ANXIETY DISORDER 09/09/2008 ENRIQUE GILLESPIE DOA K 459.81 CHRONIC CUTANEOUS ULCER VENOUS STASIS 09/09/2008 JOSE MIGUEL BOGGS MILLY K 789.00 abdominal pain 09/09/2008 GILLESPIE DO MILLY K 278.0 WEIGHT MANAGEMENT 09/09/2008 GILLESPIE DO MILLY K 278.01 OBESITY MORBID 09/09/2008 JOSE MIGUEL BOGGS MILLY K 300.02 GENERALIZED ANXIETY DISORDER 09/09/2008 GILLESPIE DO, MILLY K 459.81 CHRONIC CUTANEOUS ULCER VENOUS STASIS 09/09/2008 GILLESPIE DO, MILLY K 789.00 abdominal pain 09/09/2008 GILLESPIE DO, MILLY K 278.0 WEIGHT MANAGEMENT 09/09/2008 GILLESPIE DO, MILLY K 278.01 OBESITY MORBID 09/09/2008 GILLESPIE DO, MILLY K 300.02 GENERALIZED ANXIETY DISORDER 09/09/2008 GILLESPIE DO, MILLY K 459.81 CHRONIC CUTANEOUS ULCER VENOUS STASIS 09/09/2008 GILLESPIE DO, MILLY K 789.00 abdominal pain 09/09/2008 NORMA DDS, JENN M 278.0 WEIGHT MANAGEMENT 09/09/2008 NORMA DDS, JENN M 278.01 OBESITY MORBID 09/09/2008 NORMA DDS, JENN M 300.02 GENERALIZED ANXIETY DISORDER 09/09/2008 NORMA DDS, JENN M 459.81 CHRONIC CUTANEOUS ULCER VENOUS STASIS 09/09/2008 NORMA DDS, JENN M 789.00 abdominal pain 09/09/2008 GILLESPIE DO, MILLY K 278.0 WEIGHT MANAGEMENT 09/09/2008 GILLESPIE DO, MILLY K 278.01 OBESITY MORBID 09/09/2008 GILLESPIE DO, MILLY K 300.02 GENERALIZED ANXIETY DISORDER 09/09/2008 GILLESPIE DO, MILLY K 459.81 CHRONIC CUTANEOUS ULCER VENOUS STASIS 09/09/2008 GILLESPIE DO, MILLY K 789.00 abdominal pain 09/09/2008 JEANNE DDS, JANELL D 278.0 WEIGHT MANAGEMENT 09/09/2008 JEANNE DDS, JANELL Thibodeaux 278.01 OBESITY MORBID 09/09/2008 JEANNE DDS, JANELL Thibodeaux 300.02 GENERALIZED ANXIETY DISORDER 09/09/2008 JEANNE DDS, JANELL Thibodeaux 459.81 CHRONIC CUTANEOUS ULCER VENOUS STASIS 09/09/2008 JEANNE DDS, JANELL D 789.00 abdominal pain 09/09/2008 GILLESPIE DO, MILLY K 278.0 WEIGHT MANAGEMENT 09/09/2008 GILLESPIE DO, MILLY K 278.01 OBESITY MORBID 09/09/2008 GILLESPIE DO, MILLY K 300.02 GENERALIZED ANXIETY DISORDER 09/09/2008 GILLESPIE DO, MILLY K 459.81 CHRONIC CUTANEOUS ULCER VENOUS STASIS 09/09/2008 GILLESPIE DO, MILLY K 789.00 abdominal pain 09/09/2008 COUNTS INCLUDE 234 BEDS AT THE [facility] ENRIQUE BENAVIDEZSIE E 278.0 WEIGHT MANAGEMENT 09/09/2008 COUNTS INCLUDE 234 BEDS AT THE [facility] ENRIQUE BENAVIDEZSIE E 278.01 OBESITY MORBID 09/09/2008 [facility] ENRIQUE BENAV[facility]SIE E 300.02 GENERALIZED ANXIETY DISORDER 09/09/2008 [facility] ENRIQUE BENAVIDEZSIE E 459.81 CHRONIC CUTANEOUS ULCER VENOUS STASIS 09/09/2008 [facility] ENRIQUE BENAVIDEZSIE E 789.00 abdominal pain 09/09/2008 GILELSPIE DO, MILLY K 278.0 WEIGHT MANAGEMENT 09/09/2008 GILLESPIE DO, MILLY K 278.01 OBESITY MORBID 09/09/2008 GILLESPIE DO, MILLY K 300.02 GENERALIZED ANXIETY DISORDER 09/09/2008 GILLESPIE DO, MILLY K 459.81 CHRONIC CUTANEOUS ULCER VENOUS STASIS 09/09/2008 GILLESPIE DO, MILLY K 789.00 abdominal pain 09/09/2008 COUNTS INCLUDE 234 BEDS AT THE [facility] RYAN BENAVIDEZE E 278.0 WEIGHT MANAGEMENT 09/09/2008 COUNTS INCLUDE 234 BEDS AT THE [facility] RYAN BENAVIDEZE E 278.01 OBESITY MORBID 09/09/2008 [facility] RYAN BENAVIDEZE E 300.02 GENERALIZED ANXIETY DISORDER 09/09/2008 [facility] RYAN BENAVIDEZE E 459.81 CHRONIC CUTANEOUS ULCER VENOUS STASIS 09/09/2008 COUNTS INCLUDE 234 BEDS AT THE [facility] RYAN BENAVIDEZE E 789.00 abdominal pain 09/09/2008 GILLESPIE DO, MILLY K 278.0 WEIGHT MANAGEMENT 09/09/2008 GILLESPIE DO, MILLY K 278.01 OBESITY MORBID 09/09/2008 GILLESPIE DO, MILLY K 300.02 GENERALIZED ANXIETY DISORDER 09/09/2008 GILLESPIE DO, MILLY K 459.81 CHRONIC CUTANEOUS ULCER VENOUS STASIS 09/09/2008 GILLESPIE DO, MILLY K 789.00 abdominal pain 09/09/2008 GILLESPIE DO, MILLY K 278.0 WEIGHT MANAGEMENT 09/09/2008 GILLESPIE DO, MILLY K 278.01 OBESITY MORBID 09/09/2008 GILLESPIE DO, MILLY K 300.02 GENERALIZED ANXIETY DISORDER 09/09/2008 GILLESPIE DO, MILLY K 459.81 CHRONIC CUTANEOUS ULCER VENOUS STASIS 09/09/2008 GILLESPIE DO, MILLY K 789.00 abdominal pain 09/09/2008 COUNTS INCLUDE 234 BEDS AT THE [facility] ENRIQUE BENAVIDEZSIE E 278.0 WEIGHT MANAGEMENT 09/09/2008 HELL[facility] BIOMEDICAL EQUIPMENT TECH, DAISY E 278.01 OBESITY MORBID 09/09/2008 [facility] DAISY E 300.02 GENERALIZED ANXIETY DISORDER 09/09/2008 [facility] BIOMEDICAL EQUIPMENT TECH, DAISY E 459.81 CHRONIC CUTANEOUS ULCER VENOUS STASIS 09/09/2008 [facility] BIOMEDICAL EQUIPMENT TECH, DAISY E 789.00 abdominal pain 09/09/2008 GILLESPIE DO, MILLY K 278.0 WEIGHT MANAGEMENT 09/09/2008 GILLESPIE DO, MILLY K 278.01 OBESITY MORBID 09/09/2008 GILLESPIE DO, MILLY K 300.02 GENERALIZED ANXIETY DISORDER 09/09/2008 GILLESPIE DO, MILLY K 459.81 CHRONIC CUTANEOUS ULCER VENOUS STASIS 09/09/2008 GILLESPIE DO, MILLY K 789.00 abdominal pain 09/09/2008 COUNTS INCLUDE 234 BEDS AT THE [facility] BIOMEDICAL EQUIPMENT TECH, DAISY E 278.0 WEIGHT MANAGEMENT 09/09/2008 COUNTS INCLUDE 234 BEDS AT THE [facility] BIOMEDICAL EQUIPMENT TECH, DAISY E 278.01 OBESITY MORBID 09/09/2008 COUNTS INCLUDE 234 BEDS AT THE [facility] PRAMOD, DAISY E 300.02 GENERALIZED ANXIETY DISORDER 09/09/2008 COUNTS INCLUDE 234 BEDS AT THE [facility] BIOMEDICAL EQUIPMENT TECH, DAISY E 459.81 CHRONIC CUTANEOUS ULCER VENOUS STASIS 09/09/2008 COUNTS INCLUDE 234 BEDS AT THE [facility] BIOMEDICAL EQUIPMENT TECH, DAISY E 789.00 abdominal pain 09/09/2008 COUNTS INCLUDE 234 BEDS AT THE [facility] PRAMOD, DAISY E 278.0 WEIGHT MANAGEMENT 09/09/2008 [facility], DAISY E 278.01 OBESITY MORBID 09/09/2008 COUNTS INCLUDE 234 BEDS AT THE [facility] BIOMEDICAL EQUIPMENT TECH, DAISY E 300.02 GENERALIZED ANXIETY DISORDER 09/09/2008 [facility] PRAMOD, DAISY E 459.81 CHRONIC CUTANEOUS ULCER VENOUS STASIS 09/09/2008 [facility] BIOMEDICAL EQUIPMENT TECH, DAISY E 789.00 abdominal pain 09/09/2008 [facility], DAISY E 278.0 WEIGHT MANAGEMENT 09/09/2008 [facility], DAISY E 278.01 OBESITY MORBID 09/09/2008 HELWIG BIOMEDICAL EQUIPMENT TECH, DAISY E 300.02 GENERALIZED ANXIETY DISORDER 09/09/2008 HELWIG BIOMEDICAL EQUIPMENT TECH, DAISY E 459.81 CHRONIC CUTANEOUS ULCER VENOUS STASIS 09/09/2008 [facility], DAISY E 789.00 abdominal pain 09/09/2008 GILLESPIE DO, MILLY K 278.0 WEIGHT MANAGEMENT 09/09/2008 GILLESPIE DO, MILLY K 278.01 OBESITY MORBID 09/09/2008 GILLESPIE DO, MILLY K 300.02 GENERALIZED ANXIETY DISORDER 09/09/2008 GILLESPIE DO, MILLY K 459.81 CHRONIC CUTANEOUS ULCER VENOUS STASIS 09/09/2008 GILLESPIE DO, MILLY K 789.00 abdominal pain 11/14/2008 278.00 OBESITY 11/14/2008 530.81 ESOPHAGEAL REFLUX 11/14/2008 786.2 cough 11/14/2008 JOSE COLEMAN MD 278.00 OBESITY 11/14/2008 JOSE COLEMAN MD 530.81 ESOPHAGEAL REFLUX 11/14/2008 JOSE COLEMAN MD 786.2 cough 11/14/2008 278.00 OBESITY 11/14/2008 530.81 ESOPHAGEAL REFLUX 11/14/2008 786.2 cough 11/14/2008 278.00 OBESITY 11/14/2008 530.81 ESOPHAGEAL REFLUX 11/14/2008 786.2 cough 11/14/2008 278.00 OBESITY 11/14/2008 530.81 ESOPHAGEAL REFLUX 11/14/2008 786.2 cough 11/14/2008 278.00 OBESITY 11/14/2008 530.81 ESOPHAGEAL REFLUX 11/14/2008 786.2 cough 11/14/2008 278.00 OBESITY 11/14/2008 530.81 ESOPHAGEAL REFLUX 11/14/2008 786.2 cough 11/14/2008 278.00 OBESITY 11/14/2008 530.81 ESOPHAGEAL REFLUX 11/14/2008 786.2 cough 11/14/2008 GILLESPIE DO, MILLY K 278.00 OBESITY 11/14/2008 GILLESPIE DO, MILLY K 530.81 ESOPHAGEAL REFLUX 11/14/2008 GILLESPIE DO, MILLY K 786.2 cough 11/14/2008 GILLESPIE DO, MILLY K 278.00 OBESITY 11/14/2008 GILLESPIE DO, MILLY K 530.81 ESOPHAGEAL REFLUX 11/14/2008 GILLESPIE DO, MILLY K 786.2 cough 11/14/2008 GILLESPIE DO, MILLY K 278.00 OBESITY 11/14/2008 GILLESPIE DO, MILLY K 530.81 ESOPHAGEAL REFLUX 11/14/2008 GILLESPIE DO, MILLY K 786.2 cough 11/14/2008 NORMA DDS, JENN M 278.00 OBESITY 11/14/2008 NORMA DDSJENN M 530.81 ESOPHAGEAL REFLUX 11/14/2008 NORMA DDS, JENN M 786.2 cough 11/14/2008 GILLESPIE DO, MILLY K 278.00 OBESITY 11/14/2008 GILLESPIE DO, MILLY K 530.81 ESOPHAGEAL REFLUX 11/14/2008 GILLESPIE DO, MILLY K 786.2 cough 11/14/2008 JEANNE DDS, JANELL D 278.00 OBESITY 11/14/2008 JEANNE DDS, JANELL D 530.81 ESOPHAGEAL REFLUX 11/14/2008 JEANNE DDS, JANELL D 786.2 cough 11/14/2008 GILLESPIE DO, MILLY K 278.00 OBESITY 11/14/2008 GILLESPIE DO, MILLY K 530.81 ESOPHAGEAL REFLUX 11/14/2008 GILLESPIE DO, MILLY K 786.2 cough 11/14/2008 [employer] BIOMEDICAL EQUIPMENT TECH, DAISY E 278.00 OBESITY 11/14/2008 [facility] BIOMEDICAL EQUIPMENT TECH, DAISY E 530.81 ESOPHAGEAL REFLUX 11/14/2008 HE[employer]WIG BIOMEDICAL EQUIPMENT TECH, DAISY E 786.2 cough 11/14/2008 GILLESPIE DO, MILLY K 278.00 OBESITY 11/14/2008 GILLESPIE DO, MILLY K 530.81 ESOPHAGEAL REFLUX 11/14/2008 GILLESPIE DO, MILLY K 786.2 cough 11/14/2008 HELLWIG BIOMEDICAL EQUIPMENT TECH, DAISY E 278.00 OBESITY 11/14/2008 HELLWIG BIOMEDICAL EQUIPMENT TECH, DAISY E 530.81 ESOPHAGEAL REFLUX 11/14/2008 HELLWIG BIOMEDICAL EQUIPMENT TECH, DAISY E 786.2 cough 11/14/2008 GILLESPIE DO, MILLY K 278.00 OBESITY 11/14/2008 GILLESPIE DO, MILLY K 530.81 ESOPHAGEAL REFLUX 11/14/2008 GILLESPIE DO, MILLY K 786.2 cough 11/14/2008 GILLESPIE DO, MILLY K 278.00 OBESITY 11/14/2008 GILLESPIE DO, MILLY K 530.81 ESOPHAGEAL REFLUX 11/14/2008 GILLESPIE DO, MILLY K 786.2 cough 11/14/2008 HELLWIG BIOMEDICAL EQUIPMENT TECH, DAISY E 278.00 OBESITY 11/14/2008 HELLWIG BIOMEDICAL EQUIPMENT TECH, DAISY E 530.81 ESOPHAGEAL REFLUX 11/14/2008 HELLWIG BIOMEDICAL EQUIPMENT TECH, DAISY E 786.2 cough 11/14/2008 GILLESPIE DO, MILLY K 278.00 OBESITY 11/14/2008 GILLESPIE DO, MILLY K 530.81 ESOPHAGEAL REFLUX 11/14/2008 GILLESPIE DO, MILLY K 786.2 cough 11/14/2008 HE[employer]IG BIOMEDICAL EQUIPMENT TECH, DAISY E 278.00 OBESITY 11/14/2008 HELLWIG BIOMEDICAL EQUIPMENT TECH, DAISY E 530.81 ESOPHAGEAL REFLUX 11/14/2008 HELLWIG BIOMEDICAL EQUIPMENT TECH, DAISY E 786.2 cough 11/14/2008 HELLWIG BIOMEDICAL EQUIPMENT TECH, DAISY E 278.00 OBESITY 11/14/2008 HELLWIG BIOMEDICAL EQUIPMENT TECH, DAISY E 530.81 ESOPHAGEAL REFLUX 11/14/2008 HELLWIG BIOMEDICAL EQUIPMENT TECH, DAISY E 786.2 cough 11/14/2008 HELLWIG BIOMEDICAL EQUIPMENT TECH, DAISY E 278.00 OBESITY 11/14/2008 HELLWIG BIOMEDICAL EQUIPMENT TECH, DAISY E 530.81 ESOPHAGEAL REFLUX 11/14/2008 HE[facility]IG BIOMEDICAL EQUIPMENT TECH, DAISY E 786.2 cough 11/14/2008 GILLESPIE DO, MILLY K 278.00 OBESITY 11/14/2008 GILLESPIE DO, MILLY K 530.81 ESOPHAGEAL REFLUX 11/14/2008 GILLESPIE DO, MILLY K 786.2 cough 01/22/2009 368.8 blurry vision 01/22/2009 JOSE COLEMAN MD 368.8 blurry vision 01/22/2009 368.8 blurry vision 01/22/2009 368.8 blurry vision 01/22/2009 368.8 blurry vision 01/22/2009 368.8 blurry vision 01/22/2009 368.8 blurry vision 01/22/2009 368.8 blurry vision 01/22/2009 GILLESPIE DO, MILLY K 368.8 blurry vision 01/22/2009 GILLESPIE DO, MILLY K 368.8 blurry vision 01/22/2009 GILLESPIE DO, MILLY K 368.8 blurry vision 01/22/2009 JENN GREEN DDS 368.8 blurry vision 01/22/2009 GILLESPIE DO, MILLY K 368.8 blurry vision 01/22/2009 JANELL ANGEL DDS 368.8 blurry vision 01/22/2009 GILLESPIE DO, MILLY K 368.8 blurry vision 01/22/2009 [employer] BIOMEDICAL EQUIPMENT TECH, DAISY E 368.8 blurry vision 01/22/2009 GILLESPIE DO, MILLY K 368.8 blurry vision 01/22/2009 HE[employer]WIG BIOMEDICAL EQUIPMENT TECH, DAISY E 368.8 blurry vision 01/22/2009 GILLESPIE DO, MILLY K 368.8 blurry vision 01/22/2009 GILLESPIE DO, MILLY K 368.8 blurry vision 01/22/2009 [facility] DAISY E 368.8 blurry vision 01/22/2009 GILLESPIE DO, MILLY K 368.8 blurry vision 01/22/2009 COUNTS INCLUDE 234 BEDS AT THE [facility] BIOMEDICAL EQUIPMENT TECH, DAISY E 368.8 blurry vision 01/22/2009 COUNTS INCLUDE 234 BEDS AT THE [facility] BIOMEDICAL EQUIPMENT TECH, DAISY E 368.8 blurry vision 01/22/2009 COUNTS INCLUDE 234 BEDS AT THE [facility] BIOMEDICAL EQUIPMENT TECH, DAISY E 368.8 blurry vision 01/22/2009 GILLESPIE DO, MILLY K 368.8 blurry vision 04/09/2009 728.85 MUSCLE SPASM 04/09/2009 782.0 numbness (hypesthesia) 04/09/2009 JOSE COLEMAN MD 728.85 MUSCLE SPASM 04/09/2009 JOSE COLEMAN MD 782.0 numbness (hypesthesia) 04/09/2009 728.85 MUSCLE SPASM 04/09/2009 782.0 numbness (hypesthesia) 04/09/2009 728.85 MUSCLE SPASM 04/09/2009 782.0 numbness (hypesthesia) 04/09/2009 728.85 MUSCLE SPASM 04/09/2009 782.0 numbness (hypesthesia) 04/09/2009 728.85 MUSCLE SPASM 04/09/2009 782.0 numbness (hypesthesia) 04/09/2009 728.85 MUSCLE SPASM 04/09/2009 782.0 numbness (hypesthesia) 04/09/2009 728.85 MUSCLE SPASM 04/09/2009 782.0 tingling (paresthesia) 04/09/2009 GILLESPIE DO, MILLY K 728.85 MUSCLE SPASM 04/09/2009 GILLESPIE DO, MILLY K 782.0 tingling (paresthesia) 04/09/2009 GILLESPIE DO, MILLY K 728.85 MUSCLE SPASM 04/09/2009 GILLESPIE DO, MILLY K 782.0 tingling (paresthesia) 04/09/2009 GILLESPIE DO, MILLY K 728.85 MUSCLE SPASM 04/09/2009 GILLESPIE DO, MILLY K 782.0 tingling (paresthesia) 04/09/2009 NORMA DDS, JENN M 728.85 MUSCLE SPASM 04/09/2009 NORMA DDS, JENN M 782.0 tingling (paresthesia) 04/09/2009 GILLESPIE DO, MILLY K 728.85 MUSCLE SPASM 04/09/2009 GILLESPIE DO, MILLY K 782.0 tingling (paresthesia) 04/09/2009 JEANNE DDS, JANELL D 728.85 MUSCLE SPASM 04/09/2009 JEANNE DDS, JANELL D 782.0 tingling (paresthesia) 04/09/2009 GILLESPIE DO, MILLY K 728.85 MUSCLE SPASM 04/09/2009 GILLESPIE DO, MILLY K 782.0 tingling (paresthesia) 04/09/2009 [employer] BIOMEDICAL EQUIPMENT TECH DAISY E 728.85 MUSCLE SPASM 04/09/2009 [facility] BIOMEDICAL EQUIPMENT TECH DAISY E 782.0 tingling (paresthesia) 04/09/2009 GILLESPIE DO, MILLY K 728.85 MUSCLE SPASM 04/09/2009 GILLESPIE DO, MILLY K 782.0 tingling (paresthesia) 04/09/2009 [facility] BIOMEDICAL EQUIPMENT TECH DAISY E 728.85 MUSCLE SPASM 04/09/2009 [facility] BIOMEDICAL EQUIPMENT TECH DAISY E 782.0 tingling (paresthesia) 04/09/2009 GILLESPIE DO, MILLY K 728.85 MUSCLE SPASM 04/09/2009 GILLESPIE DO, MILLY K 782.0 tingling (paresthesia) 04/09/2009 GILLESPIE DO, MILLY K 728.85 MUSCLE SPASM 04/09/2009 GILLESPIE DO, MILLY K 782.0 tingling (paresthesia) 04/09/2009 [facility] BIOMEDICAL EQUIPMENT TECH DAISY E 728.85 MUSCLE SPASM 04/09/2009 [employer] BIOMEDICAL EQUIPMENT TECH, DAISY E 782.0 tingling (paresthesia) 04/09/2009 GILLESPIE DO, MILLY K 728.85 MUSCLE SPASM 04/09/2009 GILLESPIE DO, MILLY K 782.0 TINGLING (PARESTHESIA) 04/09/2009 [facility] BIOMEDICAL EQUIPMENT TECH DAISY E 728.85 MUSCLE SPASM 04/09/2009 [facility]IG BIOMEDICAL EQUIPMENT TECH DAISY E 782.0 TINGLING (PARESTHESIA) 04/09/2009 ENRIQUE MARIN APRNSIE E 728.85 MUSCLE SPASM 04/09/2009 ENRIQUE MARIN APRNSIE E 782.0 TINGLING (PARESTHESIA) 04/09/2009 ENRIQUE MARIN APRNSIE E 728.85 MUSCLE SPASM 04/09/2009 ENRIQUE MARIN APRNSIE E 782.0 TINGLING (PARESTHESIA) 04/09/2009 GILLESPIE DO MILLY K 728.85 MUSCLE SPASM 04/09/2009 GILLESPIE DO, MILLY K 782.0 TINGLING (PARESTHESIA) 04/25/2009 250.02 DIABETES MELLITUS POORLY CONTROLLED 04/25/2009 JARED GODFREY, JOSE 250.02 DIABETES MELLITUS TYPE 2 - UNCOMPLICATED, UNCONTROLLED 04/25/2009 250.02 DIABETES MELLITUS TYPE 2 - UNCOMPLICATED, UNCONTROLLED 04/25/2009 250.02 DIABETES MELLITUS TYPE 2 - UNCOMPLICATED, UNCONTROLLED 04/25/2009 250.02 DIABETES MELLITUS TYPE 2 - UNCOMPLICATED, UNCONTROLLED 04/25/2009 250.02 DIABETES MELLITUS TYPE 2 - UNCOMPLICATED, UNCONTROLLED 04/25/2009 250.02 DIABETES MELLITUS TYPE 2 - UNCOMPLICATED, UNCONTROLLED 04/25/2009 250.02 DIABETES MELLITUS TYPE 2 - UNCOMPLICATED, UNCONTROLLED 04/25/2009 GILLESPIE DO, MILLY K 250.02 DIABETES MELLITUS TYPE 2 - UNCOMPLICATED, UNCONTROLLED 04/25/2009 GILLESPIE DO, MILLY K 250.02 DIABETES MELLITUS TYPE 2 - UNCOMPLICATED, UNCONTROLLED 04/25/2009 GILLESPIE DO, MILLY K 250.02 DIABETES MELLITUS TYPE 2 - UNCOMPLICATED, UNCONTROLLED 04/25/2009 NORMA DDS, JENN Dietrich 250.02 DIABETES MELLITUS TYPE 2 - UNCOMPLICATED, UNCONTROLLED 04/25/2009 GILLESPIE DO, MILLY K 250.02 DIABETES MELLITUS TYPE 2 - UNCOMPLICATED, UNCONTROLLED 04/25/2009 JEANNE ZHOUS, JANELL Thibodeaux 250.02 DIABETES MELLITUS TYPE 2 - UNCOMPLICATED, UNCONTROLLED 04/25/2009 GILLESPIE DO, MILLY K 250.02 DIABETES MELLITUS TYPE 2 - UNCOMPLICATED, UNCONTROLLED 04/25/2009 ENRIQUE MARIN APRNSIE E 250.02 DIABETES MELLITUS TYPE 2 - UNCOMPLICATED, UNCONTROLLED 04/25/2009 GILLESPIE DO, MILLY K 250.02 DIABETES MELLITUS TYPE 2 - UNCOMPLICATED, UNCONTROLLED 04/25/2009 ENRIQUE MARIN APRNSIE E 250.02 DIABETES MELLITUS TYPE 2 - UNCOMPLICATED, UNCONTROLLED 04/25/2009 GILLESPIE DO, MILLY K 250.02 DIABETES MELLITUS TYPE 2 - UNCOMPLICATED, UNCONTROLLED 04/25/2009 GILLESPIE DO, MILLY K 250.02 DIABETES MELLITUS TYPE 2 - UNCOMPLICATED, UNCONTROLLED 04/25/2009 [facility] BIOMEDICAL EQUIPMENT TECH, DAISY E 250.02 DIABETES MELLITUS TYPE 2 - UNCOMPLICATED, UNCONTROLLED 04/25/2009 GILLESPIE DO, MILLY K 250.02 DIABETES MELLITUS TYPE 2 - UNCOMPLICATED, UNCONTROLLED 04/25/2009 TOMAS BENAVIDEZ DAISY E 250.02 DIABETES MELLITUS TYPE 2 - UNCOMPLICATED, UNCONTROLLED 04/25/2009 JOANAWIG BIOMEDICAL EQUIPMENT TECH, DAISY E 250.02 DIABETES MELLITUS TYPE 2 - UNCOMPLICATED, UNCONTROLLED 04/25/2009 TOMAS BIOMEDICAL EQUIPMENT TECH, DAISY E 250.02 DIABETES MELLITUS TYPE 2 - UNCOMPLICATED, UNCONTROLLED 04/25/2009 GILLESPIE DO, MILLY K 250.02 DIABETES MELLITUS TYPE 2 - UNCOMPLICATED, UNCONTROLLED 04/30/2009 626.6 heavy bleeding between periods (metrorrhagia) 04/30/2009 JOSE COLEMAN MD 626.6 heavy bleeding between periods (metrorrhagia ) 04/30/2009 626.6 heavy bleeding between periods (metrorrhagia) 04/30/2009 626.6 heavy bleeding between periods (metrorrhagia) 04/30/2009 626.6 heavy bleeding between periods (metrorrhagia) 04/30/2009 626.6 heavy bleeding between periods (metrorrhagia) 04/30/2009 626.6 heavy bleeding between periods (metrorrhagia) 04/30/2009 626.6 heavy bleeding between periods (metrorrhagia) 04/30/2009 GILLESPIE DO, MILLY K 626.6 heavy bleeding between periods (metrorrhagia) 04/30/2009 GILLESPIE DO, MILLY K 626.6 heavy bleeding between periods (metrorrhagia) 04/30/2009 GILLESPIE DO, MILLY K 626.6 heavy bleeding between periods (metrorrhagia) 04/30/2009 JENN GREEN DDS 626.6 heavy bleeding between periods ( metrorrhagia) 04/30/2009 GILLESPIE DO, MILLY K 626.6 heavy bleeding between periods (metrorrhagia) 04/30/2009 JANELL ANGEL DDS 626.6 heavy bleeding between periods (metrorrhagia ) 04/30/2009 GILLESPIE DO, MILLY K 626.6 heavy bleeding between periods (metrorrhagia) 04/30/2009 TOMAS BENAVIDEZ DAISY E 626.6 heavy bleeding between periods ( metrorrhagia) 04/30/2009 GILLESPIE DO, MILLY K 626.6 heavy bleeding between periods (metrorrhagia) 04/30/2009 TOMAS BENAVIDEZ DAISY E 626.6 heavy bleeding between periods ( metrorrhagia) 04/30/2009 GILLESPIE DO, MILLY K 626.6 heavy bleeding between periods (metrorrhagia) 04/30/2009 GILLESPIE DO, MILLY K 626.6 heavy bleeding between periods (metrorrhagia) 04/30/2009 TOMAS BENAVIDEZ DAISY E 626.6 heavy bleeding between periods ( metrorrhagia) 04/30/2009 GILLESPIE DO, MILLY K 626.6 HEAVY BLEEDING BETWEEN PERIODS (METRORRHAGIA) 04/30/2009 ENRIQUE MARIN APRNSIE E 626.6 HEAVY BLEEDING BETWEEN PERIODS ( METRORRHAGIA) 04/30/2009 TOMAS BENAVIDEZ DAISY E 626.6 HEAVY BLEEDING BETWEEN PERIODS ( METRORRHAGIA) 04/30/2009 TOMAS BENAVIDEZ DAISY E 626.6 HEAVY BLEEDING BETWEEN PERIODS ( METRORRHAGIA) 04/30/2009 GILLESPIE DO, MILLY K 626.6 HEAVY BLEEDING BETWEEN PERIODS (METRORRHAGIA) 05/20/2010 327.20 ORGANIC SLEEP APNEA UNSPECIFIED 05/20/2010 JOSE COLEMAN MD 327.20 ORGANIC SLEEP APNEA UNSPECIFIED 05/20/2010 327.20 ORGANIC SLEEP APNEA UNSPECIFIED 05/20/2010 327.20 ORGANIC SLEEP APNEA UNSPECIFIED 05/20/2010 327.20 ORGANIC SLEEP APNEA UNSPECIFIED 05/20/2010 327.20 ORGANIC SLEEP APNEA UNSPECIFIED 05/20/2010 327.20 ORGANIC SLEEP APNEA UNSPECIFIED 05/20/2010 327.20 ORGANIC SLEEP APNEA UNSPECIFIED 05/20/2010 GILLESPIE DO, MILLY K 327.20 ORGANIC SLEEP APNEA UNSPECIFIED 05/20/2010 GILLESPIE DO, MILLY K 327.20 ORGANIC SLEEP APNEA UNSPECIFIED 05/20/2010 GILLESPIE DO MILLY K 327.20 ORGANIC SLEEP APNEA UNSPECIFIED 05/20/2010 NORMA BABIN, JENN Dietrich 327.20 ORGANIC SLEEP APNEA UNSPECIFIED 05/20/2010 GILLESPIE DO, MILLY K 327.20 ORGANIC SLEEP APNEA UNSPECIFIED 05/20/2010 JEANNE BABIN, JANELL Thibodeaux 327.20 ORGANIC SLEEP APNEA UNSPECIFIED 05/20/2010 GILLESPIE DO, MILLY K 327.20 ORGANIC SLEEP APNEA UNSPECIFIED 05/20/2010 [employer] TE[employer], DAISY E 327.20 ORGANIC SLEEP APNEA UNSPECIFIED 05/20/2010 GILLESPIE DO, MILLY K 327.20 ORGANIC SLEEP APNEA UNSPECIFIED 05/20/2010 [employer] TECH, DAISY E 327.20 ORGANIC SLEEP APNEA UNSPECIFIED 05/20/2010 GILLESPIE DO, MILLY K 327.20 ORGANIC SLEEP APNEA UNSPECIFIED 05/20/2010 GILLESPIE DO, MILLY K 327.20 ORGANIC SLEEP APNEA UNSPECIFIED 05/20/2010 [employer] TECH, DAISY E 327.20 ORGANIC SLEEP APNEA UNSPECIFIED 05/20/2010 GILLESPIE DO, MILLY K 327.20 ORGANIC SLEEP APNEA UNSPECIFIED 05/20/2010 [employer] E[employer]IPMENT TECH, DAISY E 327.20 ORGANIC SLEEP APNEA UNSPECIFIED 05/20/2010 HE[employer] BI[employer] EQUIPMENT TECH, DAISY E 327.20 ORGANIC SLEEP APNEA UNSPECIFIED 05/20/2010 HE[employer] E[employer]IPMENT TECH, DAISY E 327.20 ORGANIC SLEEP APNEA UNSPECIFIED 05/20/2010 GILLESPIE DO, MILLY K 327.20 ORGANIC SLEEP APNEA UNSPECIFIED 06/17/2010 564.1 IRRITABLE BOWEL SYNDROME 06/17/2010 JOSE COLEMAN MD 564.1 IRRITABLE BOWEL SYNDROME 06/17/2010 564.1 IRRITABLE BOWEL SYNDROME 06/17/2010 564.1 IRRITABLE BOWEL SYNDROME 06/17/2010 564.1 IRRITABLE BOWEL SYNDROME 06/17/2010 564.1 IRRITABLE BOWEL SYNDROME 06/17/2010 564.1 IRRITABLE BOWEL SYNDROME 06/17/2010 564.1 IRRITABLE BOWEL SYNDROME 06/17/2010 GILLESPIE DO, MILLY K 564.1 IRRITABLE BOWEL SYNDROME 06/17/2010 GILLESPIE DO, MILLY K 564.1 IRRITABLE BOWEL SYNDROME 06/17/2010 GILLESPIE DO, MILLY K 564.1 IRRITABLE BOWEL SYNDROME 06/17/2010 NORMA BABIN, JENN Dietrich 564.1 IRRITABLE BOWEL SYNDROME 06/17/2010 GILLESPIE DO, MILLY K 564.1 IRRITABLE BOWEL SYNDROME 06/17/2010 JEANNE ZHOUS, JANELL Thibodeaux 564.1 IRRITABLE BOWEL SYNDROME 06/17/2010 GILLESPIE DO, MILLY K 564.1 IRRITABLE BOWEL SYNDROME 06/17/2010 [employer], DAISY E 564.1 IRRITABLE BOWEL SYNDROME 06/17/2010 GILLESPIE DO, MILLY K 564.1 IRRITABLE BOWEL SYNDROME 06/17/2010 TOMAS BENAVIDEZ DAISY E 564.1 IRRITABLE BOWEL SYNDROME 06/17/2010 GILLESPIE DO, MILLY K 564.1 IRRITABLE BOWEL SYNDROME 06/17/2010 GILLESPIE DO, MILLY K 564.1 IRRITABLE BOWEL SYNDROME 06/17/2010 TOMAS BENAVIDEZ DAISY E 564.1 IRRITABLE BOWEL SYNDROME 06/17/2010 GILLESPIE DO, MILLY K 564.1 IRRITABLE BOWEL SYNDROME 06/17/2010 TOMAS BENAVIDEZ DAISY E 564.1 IRRITABLE BOWEL SYNDROME 06/17/2010 TOMAS BENAVIDEZ DAISY E 564.1 IRRITABLE BOWEL SYNDROME 06/17/2010 [facility] 564.1 IRRITABLE BOWEL SYNDROME 06/17/2010 GILLESPIE DO, MILLY K 564.1 IRRITABLE BOWEL SYNDROME 07/19/2012 JOSE COLEMAN MD 780.52 insomnia 07/19/2012 JOSE COLEMAN MD 787.1 heartburn 07/19/2012 780.52 insomnia 07/19/2012 787.1 heartburn 07/19/2012 780.52 insomnia 07/19/2012 787.1 heartburn 07/19/2012 780.52 insomnia 07/19/2012 787.1 heartburn 07/19/2012 780.52 insomnia 07/19/2012 787.1 heartburn 07/19/2012 780.52 insomnia 07/19/2012 787.1 heartburn 07/19/2012 780.52 insomnia 07/19/2012 787.1 heartburn 07/19/2012 GILLESPIE DO, MILLY K 780.52 insomnia 07/19/2012 GILLESPIE DO, MILLY K 787.1 heartburn 07/19/2012 GILLESPIE DO, MILLY K 780.52 insomnia 07/19/2012 GILLESPIE DO, MILLY K 787.1 heartburn 07/19/2012 GILLESPIE DO, MILLY K 780.52 insomnia 07/19/2012 GILLESPIE DO, MILLY K 787.1 heartburn 07/19/2012 NORMA DDS, JENN M 780.52 insomnia 07/19/2012 NORMA DDS, JENN M 787.1 heartburn 07/19/2012 GILLESPIE DO, MILLY K 780.52 insomnia 07/19/2012 GILLESPIE DO, MILLY K 787.1 heartburn 07/19/2012 JEANNE DDS, JANELL D 780.52 insomnia 07/19/2012 JEANNE DDS, JANELL D 787.1 heartburn 07/19/2012 GILLESPIE DO, MILLY K 780.52 insomnia 07/19/2012 GILLESPIE DO, MILLY K 787.1 heartburn 07/19/2012 HELLWIG BIOMEDICAL EQUIPMENT TECH, DAISY E 780.52 insomnia 07/19/2012 HELLWIG BIOMEDICAL EQUIPMENT TECH, DAISY E 787.1 heartburn 07/19/2012 GILLESPIE DO, MILLY K 780.52 insomnia 07/19/2012 GILLESPIE DO, MILLY K 787.1 heartburn 07/19/2012 HELLWIG BIOMEDICAL EQUIPMENT TECH, DAISY E 780.52 insomnia 07/19/2012 HELLWIG BIOMEDICAL EQUIPMENT TECH, DAISY E 787.1 heartburn 07/19/2012 GILLESPIE DO, MILLY K 780.52 insomnia 07/19/2012 GILLESPIE DO, MILLY K 787.1 heartburn 07/19/2012 GILLESPIE DO, MILLY K 780.52 insomnia 07/19/2012 GILLESPIE DO, MILLY K 787.1 heartburn 07/19/2012 HELLWIG BIOMEDICAL EQUIPMENT TECH, DAISY E 780.52 insomnia 07/19/2012 HELLWIG BIOMEDICAL EQUIPMENT TECH, DAISY E 787.1 heartburn 07/19/2012 GILLESPIE DO, MILLY K 780.52 insomnia 07/19/2012 GILLESPIE DO, MILLY K 787.1 HEARTBURN 07/19/2012 HELLWIG BIOMEDICAL EQUIPMENT TECH DAISY E 780.52 insomnia 07/19/2012 HELLWIG BIOMEDICAL EQUIPMENT TECH DAISY E 787.1 HEARTBURN 07/19/2012 HELLWIG BIOMEDICAL EQUIPMENT TECH, DAISY E 780.52 insomnia 07/19/2012 HELLWIG BIOMEDICAL EQUIPMENT TECH DAISY E 787.1 HEARTBURN 07/19/2012 HELLWIG BIOMEDICAL EQUIPMENT TECH, DAISY E 780.52 insomnia 07/19/2012 HELLWIG BIOMEDICAL EQUIPMENT TECH, DAISY E 787.1 HEARTBURN 07/19/2012 GILLESPIE DO, MILLY K 780.52 insomnia 07/19/2012 GILLESPIE DO, MILLY K 787.1 HEARTBURN 12/20/2012 703.0 INGROWING NAIL 12/20/2012 703.0 INGROWING NAIL 12/20/2012 703.0 INGROWING NAIL 12/20/2012 703.0 INGROWING NAIL 12/20/2012 703.0 INGROWING NAIL 12/20/2012 GILLESPIE DO, MILLY K 703.0 INGROWING NAIL 12/20/2012 GILLESPIE DO, MILLY K 703.0 INGROWING NAIL 12/20/2012 GILLESPIE DO, MILLY K 703.0 INGROWING NAIL 12/20/2012 NORMA DDS, JENN M 703.0 INGROWING NAIL 12/20/2012 GILLESPIE DO, MILLY K 703.0 INGROWING NAIL 12/20/2012 JEANNE DDS, JANELL D 703.0 INGROWING NAIL 12/20/2012 GILLESPIE DO, MILLY K 703.0 INGROWING NAIL 12/20/2012 [facility] DAISY E 703.0 INGROWING NAIL 12/20/2012 GILLESPIE DO, MILLY K 703.0 INGROWING NAIL 12/20/2012 CAITLINWIG BIOMEDICAL EQUIPMENT TECH, DAISY E 703.0 INGROWING NAIL 12/20/2012 GILLESPIE DO, MILLY K 703.0 INGROWING NAIL 12/20/2012 GILLESPIE DO, MILLY K 703.0 INGROWING NAIL 12/20/2012 HELShereeWIG BIOMEDICAL EQUIPMENT TECH, DAISY E 703.0 INGROWING NAIL 12/20/2012 GILLESPIE DO, MILLY K 703.0 INGROWING NAIL 12/20/2012 HELWIG BIOMEDICAL EQUIPMENT TECH, DAISY E 703.0 INGROWING NAIL 12/20/2012 [facility], DAISY E 703.0 INGROWING NAIL 12/20/2012 HELWIG BIOMEDICAL EQUIPMENT TECH, DAISY E 703.0 INGROWING NAIL 12/20/2012 GILLESPIE DO, MILLY K 703.0 INGROWING NAIL 01/11/2013 V03.82 PPV23 (PNEUMOVAX) DX 01/11/2013 V03.82 PPV23 (PNEUMOVAX) DX 01/11/2013 V03.82 PPV23 (PNEUMOVAX) DX 01/11/2013 V03.82 PPV23 (PNEUMOVAX) DX 01/11/2013 GILLESPIE DO, MILLY K V03.82 PPV23 (PNEUMOVAX) DX 01/11/2013 GILLESPIE DO, MILLY K V03.82 PPV23 (PNEUMOVAX) DX 01/11/2013 GILLESPIE DO, MILLY K V03.82 PPV23 (PNEUMOVAX) DX 01/11/2013 NORMA DDS, JENN Dietrich V03.82 PPV23 (PNEUMOVAX) DX 01/11/2013 GILLESPIE DO, MILLY K V03.82 PPV23 (PNEUMOVAX) DX 01/11/2013 JEANNE DDS, JANELL Thibodeaux V03.82 PPV23 (PNEUMOVAX) DX 01/11/2013 GILLESPIE DO, MILLY K V03.82 PPV23 (PNEUMOVAX) DX 01/11/2013 [facility] APRNE E V03.82 PPV23 (PNEUMOVAX) DX 01/11/2013 GILLESPIE DO, MILLY K V03.82 PPV23 (PNEUMOVAX) DX 01/11/2013 DAISY MARIN APRN E V03.82 PPV23 (PNEUMOVAX) DX 01/11/2013 GILLESPIE DO, MILLY K V03.82 PPV23 (PNEUMOVAX) DX 01/11/2013 GILLESPIE DO, MILLY K V03.82 PPV23 (PNEUMOVAX) DX 01/11/2013 [facility] APRNE E V03.82 PPV23 (PNEUMOVAX) DX 01/11/2013 GILLESPIE DO, MILLY K V03.82 PPV23 (PNEUMOVAX) DX 01/11/2013 RYAN MARIN APRNE E V03.82 PPV23 (PNEUMOVAX) DX 01/11/2013 DAISY MARIN APRN E V03.82 PPV23 (PNEUMOVAX) DX 01/11/2013 [facility]N E V03.82 PPV23 (PNEUMOVAX) DX 01/11/2013 GILLESPIE DO, MILLY K V03.82 PPV23 (PNEUMOVAX) DX 01/25/2013 790.6 ABNORMAL BLOOD CHEMISTRY 01/25/2013 790.6 ABNORMAL BLOOD CHEMISTRY 01/25/2013 790.6 ABNORMAL BLOOD CHEMISTRY 01/25/2013 GILLESPIE DO, MILLY K 790.6 ABNORMAL BLOOD CHEMISTRY 01/25/2013 GILLESPIE DO, MILLY K 790.6 ABNORMAL BLOOD CHEMISTRY 01/25/2013 GILLESPIE DO, MILLY K 790.6 ABNORMAL BLOOD CHEMISTRY 01/25/2013 NORMA BABIN, JENN Dietrich 790.6 ABNORMAL BLOOD CHEMISTRY 01/25/2013 GILLESPIE DO, MILLY K 790.6 ABNORMAL BLOOD CHEMISTRY 01/25/2013 JANELL ANGEL DDS 790.6 ABNORMAL BLOOD CHEMISTRY 01/25/2013 GILLESPIE DO, MILLY K 790.6 ABNORMAL BLOOD CHEMISTRY 01/25/2013 DAISY MARIN APRN E 790.6 ABNORMAL BLOOD CHEMISTRY 01/25/2013 GILLESPIE DO, MILLY K 790.6 ABNORMAL BLOOD CHEMISTRY 01/25/2013 ENRIQUE MARIN APRNSIE E 790.6 ABNORMAL BLOOD CHEMISTRY 01/25/2013 GILLESPIE DO, MILLY K 790.6 ABNORMAL BLOOD CHEMISTRY 01/25/2013 GILLESPIE DO, MILLY K 790.6 ABNORMAL BLOOD CHEMISTRY 01/25/2013 ENRIQUE MARIN APRNSIE E 790.6 ABNORMAL BLOOD CHEMISTRY 01/25/2013 GILLESPIE DO, MILLY K 790.6 ABNORMAL BLOOD CHEMISTRY 01/25/2013 ENRIQUE MARIN APRNSIE E 790.6 ABNORMAL BLOOD CHEMISTRY 01/25/2013 RYAN MARIN APRNE E 790.6 ABNORMAL BLOOD CHEMISTRY 01/25/2013 ENRIQUE MARIN APRNSIE E 790.6 ABNORMAL BLOOD CHEMISTRY 01/25/2013 GILLESPIE DO, MILLY K 790.6 ABNORMAL BLOOD CHEMISTRY 02/01/2013 799.22 Mood Irritable 02/01/2013 799.22 Mood Irritable 02/01/2013 GILLESPIE DO, MILLY K 799.22 Mood Irritable 02/01/2013 GILLESPIE DO, MILLY K 799.22 Mood Irritable 02/01/2013 GILLESPIE DO, MILLY K 799.22 Mood Irritable 02/01/2013 NORMA BABIN, JENN M 799.22 Mood Irritable 02/01/2013 GILLESPIE DO, MILLY K 799.22 Mood Irritable 02/01/2013 JEANNE DDS, JANELL Thibodeaux 799.22 Mood Irritable 02/01/2013 GILLESPIE DO, MILLY K 799.22 Mood Irritable 02/01/2013 [facility] BI[facility]ED[facility] EQUIP[facility] TECH DAISY E 799.22 Mood Irritable 02/01/2013 GILLESPIE DO, MILLY K 799.22 Mood Irritable 02/01/2013 HELLWIG BIOMEDICAL EQUIPMENT TECH DAISY E 799.22 Mood Irritable 02/01/2013 GILLESPIE DO, MILLY K 799.22 Mood Irritable 02/01/2013 GILLESPIE DO, MILLY K 799.22 Mood Irritable 02/01/2013 HELWIG PRAMOD DAISY E 799.22 Mood Irritable 02/01/2013 GILLESPIE DO, MILLY K 799.22 MOOD IRRITABLE 02/01/2013 [facility] DA[facility]Y E 799.22 MOOD IRRITABLE 02/01/2013 COUNTS INCLUDE 234 BEDS AT THE [facility] PRAMOD DAISY E 799.22 MOOD IRRITABLE 02/01/2013 [facility] DAISY E 799.22 MOOD IRRITABLE 02/01/2013 GILLESPIE DO, MILLY K 799.22 MOOD IRRITABLE 04/27/2013 GILLESPIE DO, MILLY K V04.81 FLU SHOT 04/27/2013 GILLESPIE DO, MILLY K V04.81 FLU SHOT 04/27/2013 GILLESPIE DO, MILLY K V04.81 FLU SHOT 04/27/2013 NORMA DDS, JENN M V04.81 FLU SHOT 04/27/2013 GILLESPIE DO, MILLY K V04.81 FLU SHOT 04/27/2013 JEANNE DDS, JANELL Thibodeaux V04.81 FLU SHOT 04/27/2013 GILLESPIE DO, MILLY K V04.81 FLU SHOT 04/27/2013 [facility] DA[facility] E V04.81 FLU SHOT 04/27/2013 GILLESPIE DO, MILLY K V04.81 FLU SHOT 04/27/2013 HELLWIG BIOMEDICAL EQUIPMENT TECH, DAISY E V04.81 FLU SHOT 04/27/2013 GILLESPIE DO, MILLY K V04.81 FLU SHOT 04/27/2013 GILLESPIE DO, MILLY K V04.81 FLU SHOT 04/27/2013 HELLWIG BIOMEDICAL EQUIPMENT TECH, DAISY E V04.81 FLU SHOT 04/27/2013 GILLESPIE DO, MILLY K V04.81 FLU SHOT 04/27/2013 HELLWIG BIOMEDICAL EQUIPMENT TECH, DAISY E V04.81 FLU SHOT 04/27/2013 HELLWIG BIOMEDICAL EQUIPMENT TECH, DAISY E V04.81 FLU SHOT 04/27/2013 HELLWIG BIOMEDICAL EQUIPMENT TECH, DAISY E V04.81 FLU SHOT 04/27/2013 GILLESPIE DO, MILLY K V04.81 FLU SHOT 08/03/2013 GILLESPIE DO, MILLY K 355.9 MONONEURITIS OF UNSPECIFIED SITE 08/03/2013 NORMA DDS, JENN M 355.9 MONONEURITIS OF UNSPECIFIED SITE 08/03/2013 GILLESPIE DO, MILLY K 355.9 MONONEURITIS OF UNSPECIFIED SITE 08/03/2013 JEANNE DDS, JANELL Thibodeaux 355.9 MONONEURITIS OF UNSPECIFIED SITE 08/03/2013 GILLESPIE DO, MILLY K 355.9 MONONEURITIS OF UNSPECIFIED SITE 08/03/2013 HELLWIG BIOMEDICAL EQUIPMENT TECH, DAISY E 355.9 MONONEURITIS OF UNSPECIFIED SITE 08/03/2013 GILLESPIE DO, MILLY K 355.9 MONONEURITIS OF UNSPECIFIED SITE 08/03/2013 HELLWIG BIOMEDICAL EQUIPMENT TECH, DAISY E 355.9 MONONEURITIS OF UNSPECIFIED SITE 08/03/2013 GILLESPIE DO, MILLY K 355.9 MONONEURITIS OF UNSPECIFIED SITE 08/03/2013 GILLESPIE DO, MILLY K 355.9 MONONEURITIS OF UNSPECIFIED SITE 08/03/2013 HELLWIG BIOMEDICAL EQUIPMENT TECH DAISY E 355.9 MONONEURITIS OF UNSPECIFIED SITE 08/03/2013 GILLESPIE DO, MILLY K 355.9 MONONEURITIS OF UNSPECIFIED SITE 08/03/2013 HELLWIG BIOMEDICAL EQUIPMENT TECH, DAISY E 355.9 MONONEURITIS OF UNSPECIFIED SITE 08/03/2013 HELLWIG BIOMEDICAL EQUIPMENT TECH, DAISY E 355.9 MONONEURITIS OF UNSPECIFIED SITE 08/03/2013 HELLWIG BIOMEDICAL EQUIPMENT TECH, DAISY E 355.9 MONONEURITIS OF UNSPECIFIED SITE 08/03/2013 GILLESPIE DO, MILLY K 355.9 MONONEURITIS OF UNSPECIFIED SITE 09/21/2013 GILLESPIE DO, MILLY K 110.1 ONYCHOMYCOSIS 09/21/2013 GILLESPIE DO, MILLY K 356.9 NEUROPATHY 09/21/2013 GILLESPIE DO, MILLY K 703.8 ONYCHOCRYPTOSIS 09/21/2013 JEANNE DDS, JANELL Thibodeaux 110.1 ONYCHOMYCOSIS 09/21/2013 JEANNE DDS, JANELL Thibodeaux 356.9 NEUROPATHY 09/21/2013 JEANNE DDS, JANELL Thibodeaux 703.8 ONYCHOCRYPTOSIS 09/21/2013 GILLESPIE DO, MILLY K 110.1 ONYCHOMYCOSIS 09/21/2013 GILLESPIE DO, MILLY K 356.9 NEUROPATHY 09/21/2013 GILLESPIE DO, MILLY K 703.8 ONYCHOCRYPTOSIS 09/21/2013 DAISY MARIN APRN E 110.1 ONYCHOMYCOSIS 09/21/2013 DAISY MARIN APRN E 356.9 NEUROPATHY 09/21/2013 DAISY MARIN APRN E 703.8 ONYCHOCRYPTOSIS 09/21/2013 GILLESPIE DO, MILLY K 110.1 ONYCHOMYCOSIS 09/21/2013 GILLESPIE DO, MILLY K 356.9 NEUROPATHY 09/21/2013 GILLESPIE DO, MILLY K 703.8 ONYCHOCRYPTOSIS 09/21/2013 RYAN MARIN APRNE E 110.1 ONYCHOMYCOSIS 09/21/2013 DAISY MARIN APRN E 356.9 NEUROPATHY 09/21/2013 DAISY MARIN APRN E 703.8 ONYCHOCRYPTOSIS 09/21/2013 GILLESPIE DO, MILLY K 110.1 ONYCHOMYCOSIS 09/21/2013 GILLESPIE DO, MILLY K 356.9 NEUROPATHY 09/21/2013 GILLESPIE DO, MILLY K 703.8 ONYCHOCRYPTOSIS 09/21/2013 GILLESPIE DO, MILLY K 110.1 ONYCHOMYCOSIS 09/21/2013 GILLESPIE DO, MILLY K 356.9 NEUROPATHY 09/21/2013 GILLESPIE DO, MILLY K 703.8 ONYCHOCRYPTOSIS 09/21/2013 TOMAS BENAVIDEZ DAISY E 110.1 ONYCHOMYCOSIS 09/21/2013 ENRIQUE MARIN APRNSIE E 356.9 NEUROPATHY 09/21/2013 HELLWIG BIOMEDICAL EQUIPMENT TECH, DAISY E 703.8 ONYCHOCRYPTOSIS 09/21/2013 GILLESPIE DO, MILLY K 110.1 ONYCHOMYCOSIS 09/21/2013 GILLESPIE DO, MILLY K 356.9 NEUROPATHY 09/21/2013 GILLESPIE DO, MILLY K 703.8 ONYCHOCRYPTOSIS 09/21/2013 [facility], DAISY E 110.1 ONYCHOMYCOSIS 09/21/2013 [facility], DAISY E 356.9 NEUROPATHY 09/21/2013 HELWIG BIOMEDICAL EQUIPMENT TECH, DAISY E 703.8 ONYCHOCRYPTOSIS 09/21/2013 COUNTS INCLUDE 234 BEDS AT THE [facility] BIOMEDICAL EQUIPMENT TECH, DAISY E 110.1 ONYCHOMYCOSIS 09/21/2013 [facility]QUIP[facility] TE[facility], DAISY E 356.9 NEUROPATHY 09/21/2013 [facility]IP[facility], DAISY E 703.8 ONYCHOCRYPTOSIS 09/21/2013 COUNTS INCLUDE 234 BEDS AT THE [facility] BIOMEDICAL EQUIPMENT TECH, DAISY E 110.1 ONYCHOMYCOSIS 09/21/2013 COUNTS INCLUDE 234 BEDS AT THE [facility] BIOMEDICAL EQUIPMENT TECH, DAISY E 356.9 NEUROPATHY 09/21/2013 [facility]IP[facility], DAISY E 703.8 ONYCHOCRYPTOSIS 09/21/2013 GILLESPIE DO, MILLY K 110.1 ONYCHOMYCOSIS 09/21/2013 GILLESPIE DO, MILLY K 356.9 NEUROPATHY 09/21/2013 GILLESPIE DO, MILLY K 703.8 ONYCHOCRYPTOSIS 04/25/2014 GILLESPIE DO, MILLY K V06.1 TDAP DX 04/25/2014 GILLESPIE DO, MILLY K V06.1 TDAP DX 04/25/2014 COUNTS INCLUDE 234 BEDS AT THE [facility] BIOMEDICAL EQUIPMENT TECH, DAISY E V06.1 TDAP DX 04/25/2014 GILLESPIE DO, MILLY K V06.1 TDAP DX 04/25/2014 [facility], DAISY E V06.1 TDAP DX 04/25/2014 [facility]IP[facility], DAISY E V06.1 TDAP DX 04/25/2014 [facility], DAISY E V06.1 TDAP DX 04/25/2014 GILLESPIE DO, MILLY K V06.1 TDAP DX 08/09/2014 GILLESPIE DO, MILLY K 564.00 UNSPECIFIED CONSTIPATION 08/09/2014 DAISY MARIN APRN E 564.00 UNSPECIFIED CONSTIPATION 08/09/2014 RYAN MARIN APRNE E 564.00 UNSPECIFIED CONSTIPATION 08/09/2014 RYAN MARIN APRNE E 564.00 UNSPECIFIED CONSTIPATION 08/09/2014 MILLY GILLESPIE DO 564.00 UNSPECIFIED CONSTIPATION 08/21/2014 ENRIQUE MARIN APRNSIE E V05.3 HEP B (ADULT) DX 08/21/2014 CAITLINGAIL BIOMEDICAL EQUIPMENT TECH, DAISY E V05.3 HEP B (ADULT) DX 08/21/2014 TOMAS BIOMEDICAL EQUIPMENT TECH, DAISY E V05.3 HEP B (ADULT) DX 08/21/2014 ENRIQUE GILLESPIE DOA K V05.3 HEP B (ADULT) DX 10/07/2014 DAISY MARIN APRN 703.0 INGROWING NAIL 10/07/2014 MILLY GILLESPIE DO 703.0 INGROWING NAIL 11/05/2014 MILLY GILLESPIE DO 382.9 UNSPECIFIED OTITIS MEDIA 11/11/2014 MILLY GILLESPIE DO 041.86 HELICOBACTER PYLORI [H. PYLORI] INFECTION 11/11/2014 MILLY GILLESPIE DO 112.0 CANDIDIASIS OF MOUTH 11/11/2014 MILLY GILLESPIE DO 718.86 OTHER JOINT DERANGEMENT NOT ELSEWHERE CLASSIFIED INVOLVING LOWER LEG 11/11/2014 MILLY GILLESPIE DO 719.46 PAIN IN JOINT INVOLVING LOWER LEG 11/11/2014 MILLY GILLESPIE DO 729.5 PAIN IN LIMB 11/11/2014 MILLY GILLESPIE DO 787.20 DYSPHAGIA UNSPECIFIED Procedures Code [place] [address] A1C (IN-HOUSE) 40593 MICRO ALBUMIN-IN HOUSE 07/19/2012 39134 MICROALBUMIN 07/2012 39242 NAIL REMOVAL PERMANENT (PARTIAL OR COMPLETE) 12/29/2012 31137 ROUTINE VENIPUNCTURE 01/11/2013 36744 A1C (IN-HOUSE) 54878 CMP 01/11/2013 [id number] GFR CALC (RESULT ONLY) 01/11/2013 19285 CBC 01/11/2013 86335 TSH 01/11/2013 21070 A1C (IN-HOUSE) 09 / PODIATRY BUNNY FELIX 08/03/2013 03489 A1C (IN-HOUSE) 58367 DEBRIDE NAIL 1-5 09/21/2013 44730 A1C (IN-HOUSE) 98154 MICRO ALBUMIN-IN HOUSE 01/02/2014 20750 DEBRIDE NAIL 1-5 01/25/2014 09568 ROUTINE VENIPUNCTURE 04/25/2014 54256 THERAPUTIC INJ SQ/IM 04/25/2014 54692 A1C (IN-HOUSE) 43153 CMP 04/25/2014 32500 LIPID PANEL 04/25 59727 TSH 04/25/2014 75422 CBC 04/25/2014 59885 A1C (IN-HOUSE) 61226 A1C (IN-HOUSE) 57167 H PYLORI (IN-HOUSE) 11/11/[address] EXTREMITY, LOWER, RIGHT, W/O CONTRAST 11/11/2014 [place] 01/2015 Physical Physical Therapy 11/11/2014 55495 XRAY FOOT LEFT COMP MIN 3 VIEWS 11/12/2014 Results Encounters ACCT No. Visit Date/Time Discharge Status Pt. Type Provider Facility Loc./Unit Complaint [id number] 11/11/2014 15:58:00 11/11/2014 23: 59:59 CLS Outpatient MILLY GILLESPIE DO [id number] 10/07/2014 17:23:00 10/07/2014 23: 59:59 CLS Outpatient DAISY MARIN APRN [id number] 08/21/2014 15:19:00 08/21/2014 23: 59:59 CLS Outpatient DAISY MARIN APRN [id number] 08/09/2014 10:10:00 08/09/2014 23: 59:59 CLS Outpatient MILLY GILLESPIE DO [id number] 08/09/2014 10:10:00 08/09/2014 23: 59:59 CLS Outpatient DAISY MARIN APRN [id number] 05/10/2014 10:11:00 05/10/2014 23: 59:59 CLS Outpatient MILLY GILLESPIE DO [id number] 04/25/2014 13:19:00 04/25/2014 23: 59:59 CLS Outpatient DAISY MARIN APRN [id number] 04/25/2014 13:19:00 04/25/2014 23: 59:59 CLS Outpatient JOSE MIGUEL DOMILLY [id number] 02/04/2014 08:31:00 02/04/2014 23: 59:59 CLS Outpatient DAISY MARIN APRN [id number] 01/25/2014 09:59:00 01/25/2014 23: 59:59 CLS Outpatient JOSE MIGUEL DOMILLY [id number] 01/02/2014 10:42:00 01/02/2014 23: 59:59 CLS Outpatient GILLESPIE DOMILLY [id number] 01/02/2014 10:42:00 01/02/2014 23: 59:59 CLS Outpatient DAISY MARIN APRN [id number] 09/21/2013 09:39:00 09/21/2013 23: 59:59 CLS Outpatient JOSE MIGUEL DOMILLY [id number] 08/22/2013 13:27:00 08/22/2013 23: 59:59 CLS Outpatient NORMA DDS JENN Dietrich [id number] 08/22/2013 13:27:00 08/22/2013 23: 59:59 CLS Outpatient JEANNE DDSJANELL [id number] 08/03/2013 10:46:00 08/03/2013 23: 59:59 CLS Outpatient MILLY GILLESPIE DO [id number] 04/27/2013 13:19:00 04/27/2013 23: 59:59 CLS Outpatient MILLY GILLESPIE DO [id number] 04/27/2013 13:19:00 04/27/2013 23: 59:59 CLS Outpatient JOSE MIGUEL DOMILLY [id number] 07/19/2012 09:56:00 07/19/2012 23: 59:59 [place] [id number] 12/30/2010 12:29:00 12/30/2010 23: 59:59 CLS Outpatient [id number] 04/06/2013 13:21:00 Document Registration [id number] 02/01/2013 13:15:00 Document Registration [id number] 01/25/2013 13:32:00 Document Registration [id number] 01/11/2013 09:17:00 Document Registration [id number] 12/20/2012 14:25:00 Document Registration [id number] 07/19/2012 09:56:00 Document Registration
--- OUTSIDE RECORDS SUMMARY | 2016-12-12 16:33 | XMS REPORT ---
Author Author DAISY MARIN [employer] Address Unknown Phone Unavailable Care Team Providers Care Urologist Physician Name Role Phone DAISY MARIN Unavailable Allergies, Adverse Reactions, Alerts Substance Reaction Event Type Sulfamethoxazole-Trimethoprim swelling Drug Allergy Problems Problem Type Condition Code Onset Dates Condition Status Problem Anxiety F41.9 Active Problem Diabetes type 2, uncontrolled E11.65 Active Problem Chronic constipation K59.00 Active Assessment Anxiety F41.9 Active Assessment Diabetes type 2, uncontrolled E11.65 Active Assessment Chronic constipation K59.00 Active Medications Medication Code System Code Instructions Start Date End Date Status Dosage Lansoprazole [facility] [address]-15 30 MG Orally Once a day May 14, 2015 1 capsule Clonazepam [facility] [address]-68 0.5 MG Orally Once a day at bedtime as needed. Must last one month October 07, 2014 1 tablet Lyrica [facility] [address]-41 150 MG Orally Three times a day October 09, 2014 1 capsule Fetzima Titration [facility] [address]-07 40 mg Orally Once a day Apr 30, 2015 1 tablet Trutest Blood Glucose Meter [facility] [address]-33 not defined Hydrochlorothiazide [facility] [address]-10 12.5 MG Orally Once a day Mar 13, 2015 1 capsule HydrOXYzine HCl [facility] [address]-89 50 MG Orally 3 times a day Apr 30, 2015 1/2 in am 1/2 tab noon and 1 tablet at bedtime Lancets [facility] 0 March 05, 2014 4 times per day Dx 250.02 BusPIRone HCl [facility] [address]-25 10 MG Orally 2 times a day May 14, 2015 1 tablet Pen [place] [facility] 60295-63666 29G X 12MM subcutaneous 4 times a day Inject Sucralfate [facility] [address]-89 1 GM Orally Once a day at bedtime 1 tablet on an empty stomach Zofran [facility] [address]-36 8 MG Orally 2 times a day PRN nausea Apr 16, 2015 1 tablet Linzess [facility] [address]-05 145 MCG Orally Once a day (DX: chronic constipation/abd pain) May 29, 2015 December 13, 2015 1 capsule Ultram [facility] [address]-76 50 MG Orally every 4 hrs PRN. Must last one month October 07, 2014 1-2 tablet Prevacid [facility] [address]-86 30 MG Orally Once a day February 15, 2015 1 capsule Levemir FlexTouch [facility] [address]-36 100 UNIT/ML Subcutaneous 2 times a day February 17, 2015 25 units Lisinopril [facility] [address]-15 2.5 MG Orally Once a day October 07, 2014 1 tablet metformin [facility] 0 850 mg orally Once a day Aug 28, 2014 1 tablet Trulicity [facility] [address]-77 1.5 MG/0.5ML Subcutaneous Once weekly Apr 30, 2015 Jul 29, 2015 0.5 ml Procedures Procedure Coding System Code Date Office Visit, Est Pt., Level 3 CPT-4 28642 Jun 16, 2015 GLYCATED HEMOGLOBIN TEST CPT-4 16735 Jun 16, 2015 Vital Signs Date/Time: Jun 16, 2015 Temperature 98 F Weight 272.1 lbs Height 62 in BMI 49.76 Index Blood Pressure Diastolic 70 mmHg Blood Pressure Systolic 122 mmHg Cardiac Monitoring Heart Rate 78 bpm Results No Known Results Summary Purpose [employer] Submission
--- OUTSIDE RECORDS SUMMARY | 2016-12-12 16:33 | XMS REPORT ---
Author Author DYLLAN SOSA Organization [employer] Address Unknown Phone Unavailable Care Team Providers Care Conveyor Belt Operator Name Role Phone DYLLAN SOSA CP Unavailable Allergies No Known Allergies Problems Problem Type Condition Code Onset Dates Condition Status Problem Diabetes type 2, uncontrolled E11.65 Active Problem Acquired hypothyroidism E03.9 Active Problem Diabetic polyneuropathy associated with type 2 diabetes mellitus E11.42 Active Problem Other chronic pain G89.29 Active Problem Chronic constipation K59.00 Active Problem Anxiety F41.9 Active Problem Gastroparesis due to secondary diabetes E13.43 Active Problem Diabetes type 2, controlled E11.9 Active Medications No Known Medications Results No Known Results Summary Purpose [employer] Submission
--- OUTSIDE RECORDS SUMMARY | 2016-12-12 16:34 | XMS REPORT ---
Author Author DAISY MARIN [facility] [employer] Address Unknown Phone Unavailable Care Team Providers Care Duster Tender Name Role Phone DAISY MARIN Unavailable Allergies No Known Allergies Problems Problem Type Condition ICD-9 Code Onset Dates Condition Status Problem Mononeuritis of unspecified site 355.9 Active Problem Unspecified constipation 564.00 Active Problem Heartburn 787.1 Active Problem Uncontrolled type 2 diabetes with neuropathy 250.62 Active Problem Other specified disease of nail 703.8 Active Problem Other abnormal blood chemistry 790.6 Active Problem Insomnia, unspecified 780.52 Active Problem Unspecified hereditary and idiopathic peripheral neuropathy 356.9 Active Medications Medication Code System Code Instructions Start Date End Date Status Dosage Sucralfate [facility] [address]-37 1 GM Orally Once a day at bedtime 1 tablet on an empty stomach Results No Known Results Summary Purpose [employer]ClinicalWorks Submission
--- OUTSIDE RECORDS SUMMARY | 2016-12-12 16:34 | XMS REPORT ---
Author Author DAISY MARIN eClinicalWorks Address Unknown Phone Unavailable Care Team Providers Care Gear Generator Set Up Operator Name Role Phone DAISY MARIN Unavailable Allergies, Adverse Reactions, Alerts Substance Reaction Event Type Sulfamethoxazole-Trimethoprim swelling Drug Allergy Problems Problem Type Condition Code Onset Dates Condition Status Problem Chronic constipation K59.00 Active Problem Anxiety F41.9 Active Problem Diabetes type 2, controlled E11.9 Active Assessment Diabetes type 2, controlled E11.9 Active Problem Diabetes type 2, uncontrolled E11.65 Active Assessment Ingrown toenail L60.0 Active Medications Medication Code System Code Instructions Start Date End Date Status Dosage Pen [place] [facility] [address] 29G X 12MM subcutaneous 4 times a day Inject HydrOXYzine HCl [facility] [address]-13 50 MG Orally 3 times a day Apr 30, 2015 1/2 in am 1/2 tab noon and 1 tablet at bedtime Trulicity [facility] [address]-88 1.5 MG/0.5ML Subcutaneous once weekly Oct 01, 2015 0.5 ml Prevacid [facility] [address]-48 30 MG Orally Once a day February 15, 2015 1 capsule Linzess [facility] [address]-55 145 MCG Orally Once a day (DX: chronic constipation/abd pain) May 29, 2015 1 capsule Fetzima Titration [facility] [address]-40 40 mg Orally Once a day Apr 30, 2015 1 tablet Levothyroxine Sodium [facility] [address]-70 25 MCG Orally Once a day Jul 30, 2015 1 tablet metformin ND 0 850 mg orally Once a day Aug 28, 2014 1 tablet Lyrica [facility] [address]-47 150 MG Orally 3 times a day Oct 01, 2015 1 capsule Hydrochlorothiazide [facility] [address]-74 12.5 MG Orally Once a day Mar 13, 2015 1 capsule Trutest Blood Glucose Test Strip [facility] 0 ... 4 times a day Jul 18, 2015 as directed BusPIRone HCl [facility] [address]-41 10 MG Orally 2 times a day May 14, 2015 1 tablet Lisinopril [facility] [address]-02 2.5 MG Orally Once a day October 07, 2014 1 tablet Erythrocin Stearate [facility] [address]-62 250 MG Orally not defined Keflex [facility] [address]-21 500 MG Orally Twice a day November 19, 2015November 1 capsule Ultram [facility] [address]-13 50 MG Orally every 4 hrs PRN. Must last one month October 07, 2014 1-2 tablet Sucralfate [facility] [address]-76 1 GM Orally Once a day at bedtime 1 tablet on an empty stomach Voltaren [facility] [address]-52 1 % Transdermal 2 times a day Jun 10, 2015 as directed Lancets [facility] 0 ... 4 times a day March 05, 2014 4 times per day Dx 250.02 Clonazepam [facility] [address]-78 1 MG Orally Once a day Sep 17, 2015 1.5 tabs in pm Trutest Blood Glucose Meter [facility] [address]-60 not defined Levemir FlexTouch [facility] [address]-71 100 UNIT/ML Subcutaneous 2 times a day February 17, 2015 20 units Procedures Procedure Coding System Code Date Office Visit, Est Pt., Level 3 CPT-4 76505 November 19, 2015 Vital Signs Date/Time: November 19, 2015 Temperature 98.0 F Weight 258.1 lbs Height 62 in BMI 47.20 Index Blood Pressure Diastolic 70 mmHg Blood Pressure Systolic 128 mmHg Cardiac Monitoring Heart Rate 88 bpm Results No Known Results Summary Purpose eClinicalWorks Submission
--- OUTSIDE RECORDS SUMMARY | 2016-12-12 16:34 | XMS REPORT ---
Author Author MILLY GILLESPIE [facility] Address [address] [place] [address] Care Team Providers Care Counting Machine Operator Name Role Phone MILLY GILLESPIE Unavailable PROBLEMS Type Condition ICD9-CM Code [id number] Code Onset Dates Condition Status SNOMED Code Problem Diabetic polyneuropathy associated with type 2 diabetes mellitus E11.42 Active 39108835 Problem Gastroparesis due to secondary diabetes E13.43 Active 9973169 Problem Anxiety F41.9 Active 82619683 Problem Diabetes type 2, uncontrolled E11.65 Active 796588177 Problem Diabetes type 2, controlled E11.9 Active 60905979 Problem Chronic constipation K59.00 Active 309849161 ALLERGIES Unknown Allergies SOCIAL HISTORY No smoking Hx information available PLAN OF CARE VITAL SIGNS MEDICATIONS Unknown Medications RESULTS No Results PROCEDURES No Known procedures IMMUNIZATIONS No Known Immunizations
--- OUTSIDE RECORDS SUMMARY | 2016-12-12 16:34 | XMS REPORT ---
Author Author DAVID BUSTILLO Organization eClinicalWorks Address Unknown Phone Unavailable Care Team Providers Care Production Control Planner Name Role Phone DAVID BUSTILLO CP Unavailable [...] diabetes E13.43 Active Medications No Known Medications Results No Known Results Summary Purpose eClinicalWorks Submission
--- OUTSIDE RECORDS SUMMARY | 2016-12-12 16:34 | XMS REPORT ---
Author Author DAISY MARIN [facility] eClinicalWorks Address Unknown Phone Unavailable Care Team Providers Care R D Internship Name Role Phone DAISY MARIN Unavailable Allergies No Known Allergies Problems Problem Type Condition Code Onset Dates Condition Status Problem Anxiety F41.9 Active Problem Diabetes type 2, uncontrolled E11.65 Active Problem Chronic constipation K59.00 Active Medications Medication Code System Code Instructions Start Date End Date Status Dosage Zofran [facility] [address]-14 8 MG Orally 2 times a day PRN nausea Apr 16, 2015 1 tablet Results No Known Results Summary Purpose eClinicalWorks Submission
--- OUTSIDE RECORDS SUMMARY | 2016-12-12 16:34 | XMS REPORT ---
Author DAISY Dodson eClinicalWorks Address Unknown Phone Unavailable Care Team Providers Care Registered Radiologic Technologist Name Role Phone DAISY MARIN Unavailable Allergies, Adverse Reactions, Alerts Substance Reaction Event Type Sulfamethoxazole-Trimethoprim swelling Drug Allergy Problems Problem Type Condition Code Onset Dates Condition Status Problem Chronic constipation K59.00 Active Problem Anxiety F41.9 Active Problem Diabetes type 2, controlled E11.9 Active Problem Diabetes type 2, uncontrolled E11.65 Active Assessment Cellulitis of right lower extremity L03.115 Active Medications Medication Code System Code Instructions Start Date End Date Status Dosage Levemir FlexTouch [facility] [address]-24 100 UNIT/ML Subcutaneous 2 times a day February 17, 2015 20 units Lisinopril [facility] [address]-08 2.5 MG Orally Once a day October 07, 2014 1 tablet Trulicity [facility] [address]-49 1.5 MG/0.5ML Subcutaneous once weekly Oct 01, 2015 0.5 ml Clonazepam [facility] [address]-34 1 MG Orally Once a day Sep 17, 2015 1.5 tabs in pm Lancets [place] 0 ... 4 times a day March 05, 2014 4 times per day Dx 250.02 Lyrica [facility] [address]-69 150 MG Orally 3 times a day Oct 01, 2015 1 capsule Augmentin [facility] [address]-87 875-125 MG Orally every 12 hrs November 21, 2015 December 01, 2015 1 tablet Trutest Blood Glucose Test Strip [place] 0 ... 4 times a day Jul 18, 2015 as directed BusPIRone HCl [facility] [address]-18 10 MG Orally 2 times a day May 14, 2015 1 tablet Levothyroxine Sodium [facility] [address]-95 25 MCG Orally Once a day Jul 30, 2015 1 tablet Fluticasone Propionate [facility] [address]-05 50 MCG/ACT Nasally Once a day November 21, 2015 1 spray in each nostril Prevacid [facility] [address]-13 30 MG Orally Once a day February 15, 2015 1 capsule Erythrocin Stearate [facility] [address]-58 250 MG Orally not defined Voltaren [facility] [address]-28 1 % Transdermal 2 times a day Jun 10, 2015 as directed Sucralfate [facility] [address]-30 1 GM Orally Once a day at bedtime 1 tablet on an empty stomach Fetzima Titration [facility] [address]-87 40 mg Orally Once a day Apr 30, 2015 1 tablet Hydrochlorothiazide [facility] [address]-41 12.5 MG Orally Once a day Mar 13, 2015 1 capsule Ultram [facility] [address]-35 50 MG Orally every 4 hrs PRN. Must last one month October 07, 2014 1-2 tablet Pen [place] [facility] [address] 29G X 12MM subcutaneous 4 times a day Inject Trutest Blood Glucose Meter [facility] [address]-48 not defined Keflex [facility] [address]-35 500 MG Orally Twice a day November 19, 2015November 1 capsule metformin [facility] 0 850 mg orally Once a day Aug 28, 2014 1 tablet Linzess [facility] [address]-55 145 MCG Orally Once a day (DX: chronic constipation/abd pain) May 29, 2015 1 capsule HydrOXYzine HCl [facility] [address]-04 50 MG Orally 3 times a day Apr 30, 2015 1/2 in am 1/2 tab noon and 1 tablet at bedtime Procedures Procedure Coding System Code Date Office Visit, Est Pt., Level 3 CPT-4 26884 November 21, 2015 Vital Signs Date/Time: November 21, 2015 Temperature 98 F Weight 261.8 lbs Height 62 in BMI 47.88 Index Blood Pressure Diastolic 70 mmHg Blood Pressure Systolic 124 mmHg Cardiac Monitoring Heart Rate 82 bpm Results No Known Results Summary Purpose eClinicalWorks Submission
--- OUTSIDE RECORDS SUMMARY | 2016-12-12 16:34 | XMS REPORT ---
Author Author DAISY MARIN [facility] eClinicalWorks Address Unknown Phone Unavailable Care Team Providers Care Cutting Machine Operator Helper Name Role Phone DAISY MARIN Unavailable Allergies No Known Allergies Problems Problem Type Condition Code Onset Dates Condition Status Problem Anxiety F41.9 Active Problem Diabetes type 2, uncontrolled E11.65 Active Problem Chronic constipation K59.00 Active Medications Medication Code System Code Instructions Start Date End Date Status Dosage Clonazepam [facility] [address]-16 0.5 MG Orally Once a day at bedtime as needed. Must last one month October 07, 2014 1 tablet BusPIRone HCl [facility] [address]-36 10 MG Orally 2 times a day May 14, 2015 1 tablet Zofran [facility] [address]-82 8 MG Orally 2 times a day PRN nausea Apr 16, 2015 1 tablet Sucralfate [facility] [address]-62 1 GM Orally Once a day at bedtime 1 tablet on an empty stomach Results No Known Results Summary Purpose eClinicalWorks Submission
--- OUTSIDE RECORDS SUMMARY | 2016-12-12 16:34 | XMS REPORT ---
Author Author DAISY MARIN [employer]ClinicalWorks Address Unknown Phone Unavailable Care Team Providers Care Upper Leather Cutter Name Role Phone DAISY MARIN Unavailable Allergies [...] Start Date End Date Status Dosage Clonazepam [facility] [address]-89 0.5 MG Orally Once a day at bedtime as needed. Must last one month October 07, 2014 1 tablet Ultram [facility] [address]-67 50 MG Orally every 4 hrs PRN. Must last one month October 07, 2014 1-2 tablet Pen [place] [facility] [address] 29G X 12MM subcutaneous 4 times a day Inject Results No Known Results Summary Purpose eClinicalWorks Submission
--- OUTSIDE RECORDS SUMMARY | 2016-12-12 16:34 | XMS REPORT ---
Author Author DAISY MARIN [facility] eClinicalWorks Address Unknown Phone Unavailable Care Team Providers Care Drill Doctor Name Role Phone DAISY MARIN Unavailable Allergies No Known Allergies Problems Problem Type Condition Code Onset Dates Condition Status Problem Anxiety F41.9 Active Problem Diabetes type 2, uncontrolled E11.65 Active Problem Chronic constipation K59.00 Active Medications Medication Code System Code Instructions Start Date End Date Status Dosage Lansoprazole [facility] [address]-48 30 MG Orally Once a day May 14, 2015 1 capsule Trutest Blood Glucose Test Strip [facility] 0 ... 4 times a day Jul 18, 2015 as directed Clonazepam [facility] [address]-38 0.5 MG Orally Once a day at bedtime as needed. Must last one month October 07, 2014 1 tablet Pen [place] [facility] [address] 29G X 12MM subcutaneous 4 times a day Inject Results No Known Results Summary Purpose eClinicalWorks Submission
--- OUTSIDE RECORDS SUMMARY | 2016-12-12 16:34 | XMS REPORT ---
Author Author DAISY MARIN [facility] eClinicalWorks Address Unknown Phone Unavailable Care Team Providers Care Smutter Name Role Phone DAISY MARIN Unavailable Allergies No Known Allergies Problems Problem Type Condition Code Onset Dates Condition Status Problem Anxiety F41.9 Active Problem Diabetes type 2, uncontrolled E11.65 Active Problem Chronic constipation K59.00 Active Medications Medication Code System Code Instructions Start Date End Date Status Dosage Ultram [facility] [address]-88 50 MG Orally every 4 hrs PRN. Must last one month October 07, 2014 1-2 tablet Results No Known Results Summary Purpose eClinicalWorks Submission
--- OUTSIDE RECORDS SUMMARY | 2016-12-12 16:34 | XMS REPORT ---
Author Author DAISY MARIN [facility] eClinicalWorks Address Unknown Phone Unavailable Care Team Providers Care Senior Windows Systems Administrator Name Role Phone DAISY MARIN Unavailable Allergies No Known Allergies Problems Problem Type Condition Code Onset Dates Condition Status Problem Chronic constipation K59.00 Active Problem Anxiety F41.9 Active Problem Diabetes type 2, controlled E11.9 Active Problem Diabetes type 2, uncontrolled E11.65 Active Medications Medication Code System Code Instructions Start Date End Date Status Dosage Clonazepam [facility] [address]-20 1 MG Orally Once a day Sep 17, 2015 1.5 tabs in pm Results No Known Results Summary Purpose eClinicalWorks Submission
--- OUTSIDE RECORDS SUMMARY | 2016-12-12 16:34 | XMS REPORT ---
Author DAISY Dodson eClinicalWorks Address Unknown Phone Unavailable Care Team Providers Care Clay Processing Factory Worker Name Role Phone DAISY MARIN Unavailable Allergies, [...] Start Date End Date Status Dosage Hydrochlorothiazide [facility] [address]-96 12.5 MG Orally Once a day Mar 13, 2015 1 capsule Levothyroxine Sodium [facility] [address]-24 25 MCG Orally Once a day Jul 30, 2015 1 tablet Linzess [facility] [address]-15 145 MCG Orally Once a day (DX: chronic constipation/abd pain) May 29, 2015 1 capsule Prevacid [facility] [address]-54 30 MG Orally Once a day February 15, 2015 1 capsule Lancets [facility] 0 ... 4 times a day March 05, 2014 4 times per day Dx 250.02 Pen [place] [facility] [address] 29G X 12MM subcutaneous 4 times a day Inject metformin ND 0 850 mg orally Once a day Aug 28, 2014 1 tablet Fetzima Titration [facility] [address]-24 40 mg Orally Once a day Apr 30, 2015 1 tablet Lisinopril [facility] [address]-47 2.5 MG Orally Once a day October 07, 2014 1 tablet Clonazepam [facility] [address]-55 1 MG Orally Once a day Sep 17, 2015 1.5 tabs in pm Augmentin [facility] [address]-90 875-125 MG Orally every 12 hrs November 21, 2015 December 01, 2015 1 tablet Sucralfate [facility] [address]-63 1 GM Orally Once a day at bedtime 1 tablet on an empty stomach Fluticasone Propionate [facility] [address]-59 50 MCG/ACT Nasally Once a day November 21, 2015 1 spray in each nostril BusPIRone HCl [facility] [address]-21 10 MG Orally 2 times a day May 14, 2015 1 tablet Trutest Blood Glucose Test Strip [facility] 0 ... 4 times a day Jul 18, 2015 as directed Erythrocin Stearate [facility] [address]-47 250 MG Orally not defined Trulicity [facility] [address]-32 1.5 MG/0.5ML Subcutaneous once weekly Oct 01, 2015 0.5 ml Lyrica [facility] [address]-60 150 MG Orally 3 times a day Oct 01, 2015 1 capsule Voltaren [facility] [address]-53 1 % Transdermal 2 times a day Jun 10, 2015 as directed Levemir FlexTouch [facility] [address]-94 100 UNIT/ML Subcutaneous 2 times a day February 17, 2015 20 units Keflex [facility] [address]-19 500 MG Orally Twice a day November 19, 2015November 1 capsule Ultram [facility] [address]-33 50 MG Orally every 4 hrs PRN. Must last one month October 07, 2014 1-2 tablet HydrOXYzine HCl [facility] [address]-58 50 MG Orally 3 times a day Apr 30, 2015 1/2 in am 1/2 tab noon and 1 tablet at bedtime Trutest Blood Glucose Meter [facility] [address]-30 not defined Procedures Procedure Coding System Code Date REMOVAL OF NAIL PLATE CPT-4 79599 November 24, 2015 Vital Signs Date/Time: November 24, 2015 Temperature 99.0 F Weight 261.4 lbs Height 62 in BMI 47.81 Index Blood Pressure Diastolic 70 mmHg Blood Pressure Systolic 110 mmHg Cardiac Monitoring Heart Rate 96 bpm Results No Known Results Summary Purpose eClinicalWorks Submission
--- OUTSIDE RECORDS SUMMARY | 2016-12-12 16:34 | XMS REPORT ---
Author Author DAISY MARIN [facility] eClinicalWorks Address Unknown Phone Unavailable Care Team Providers Care Reclamation Worker Name Role Phone DAISY MARIN Unavailable Allergies No Known Allergies Problems Problem Type Condition Code Onset Dates Condition Status Problem Anxiety F41.9 Active Problem Diabetes type 2, uncontrolled E11.65 Active Problem Chronic constipation K59.00 Active Medications Medication Code System Code Instructions Start Date End Date Status Dosage Lisinopril [facility] [address]-60 2.5 MG Orally Once a day October 07, 2014 1 tablet Results No Known Results Summary Purpose eClinicalWorks Submission
--- OUTSIDE RECORDS SUMMARY | 2016-12-12 16:34 | XMS REPORT ---
Author Author DAYANA BRAGA [facility] eClinicalWorks Address Unknown Phone Unavailable Care Team Providers Care Rheologist Name Role Phone DAYANA BRAGA Unavailable Allergies No Known Allergies Problems Problem Type Condition Code Onset Dates Condition Status Problem Chronic constipation K59.00 Active Problem Anxiety F41.9 Active Problem Diabetes type 2, controlled E11.9 Active Problem Diabetes type 2, uncontrolled E11.65 Active Medications Medication Code System Code Instructions Start Date End Date Status Dosage Clonazepam [facility] [address]-58 1 MG Orally Once a day Sep 17, 2015 1.5 tabs in pm Results No Known Results Summary Purpose eClinicalWorks Submission
--- OUTSIDE RECORDS SUMMARY | 2016-12-12 16:34 | XMS REPORT ---
Author Author DAYANA BRAGA [facility] eClinicalWorks Address Unknown Phone Unavailable Care Team Providers Care Gravel Truck Driver Name Role Phone DAYANA BRAGA CP Unavailable Allergies, Adverse Reactions, Alerts Substance Reaction Event Type Sulfamethoxazole-Trimethoprim swelling Drug Allergy Problems Problem Type Condition Code Onset Dates Condition Status Problem Chronic constipation K59.00 Active Problem Anxiety F41.9 Active Problem Diabetes type 2, controlled E11.9 Active Assessment Chronic constipation K59.00 Active Assessment Gastroparesis K31.84 Active Problem Diabetes type 2, uncontrolled E11.65 Active Assessment Diabetes type 2, controlled E11.9 Active Medications Medication Code System Code Instructions Start Date End Date Status Dosage metformin NDC 0 850 mg orally Once a day Aug 28, 2014 1 tablet Trulicity [facility] 33324165996 1.5 MG/0.5ML INJECT 0.5ML'S SUBCUTANEOUSLY ONCE WEEKLY... Lisinopril [facility] [address]-23 2.5 MG Orally Once a day October 07, 2014 1 tablet BusPIRone HCl [facility] [address]-22 10 mg Orally 2 times a day May 14, 2015 1 tablet Fluticasone Propionate [facility] [address]-21 50 MCG/ACT Nasally Once a day November 21, 2015 1 spray in each nostril Linzess [facility] [address]-22 145 MCG Orally Once a day (DX: chronic constipation/abd pain) May 29, 2015 1 capsule Blood Glucose Test Strip [place] 0 ... subcutaneously 4 times a day January 22, 2016 as directed Erythrocin Stearate [facility] [address]-21 250 MG Orally not defined Clonazepam [facility] [address]-51 1 MG Orally Once a day Sep 17, 2015 1.5 tabs in pm Promethazine HCl [facility] 46008101500 25 MG Orally every 12 hrs for nausea 1 tablet as needed Hydrochlorothiazide [facility] [address]-94 12.5 MG Orally Once a day Mar 13, 2015 1 capsule Lyrica [facility] [address]-73 150 MG Orally 3 times a day Oct 01, 2015 1 capsule Glucometer [place] 0 1 glucometer one time January 22, 2016 as directed Voltaren [facility] [address]-19 1 % Transdermal 2 times a day Jun 10, 2015 as directed Lancets [facility] 0 Lancets 4 times a day March 05, 2014 test blood sugar Levemir FlexTouch [facility] 46067653913 100 UNIT/ML ...INJECT (20) UNITS SUBCUTANEOUSLY TWICE DAILY... Ultram [facility] [address]-48 50 mg Orally every 4-6 hours as needed 1 tablet as needed Levothyroxine Sodium [facility] [address]-77 25 MCG Orally Once a day Jul 30, 2015 1 tablet Prevacid [facility] 78341009869 30 MG TAKE ONE (1) CAPSULE BY MOUTH ONCE DAILY... HydrOXYzine HCl [facility] 31979231848 50 MG Orally 3 times a day 1/2 in am 1/2 tab noon and 1 tablet at bedtime Fetzima Titration [facility] [address]-67 40 mg Orally Once a day Apr 30, 2015 1 tablet TRUEplus Lancets 28G [facility] 57934294299 - USE TO CHECK BLOOD SUGAR FOUR (4) TIMES DAILY... Pen [place] [facility] [address] 29G X 12MM subcutaneous 4 times a day Inject Sucralfate [facility] 13662145439 1 GM Orally Once a day at bedtime 1 tablet on an empty stomach Procedures Procedure Coding System Code Date Office Visit, Est Pt., Level 4 CPT-4 38936 Apr 02, 2016 GLYCATED HEMOGLOBIN TEST CPT-4 02357 Apr 02, 2016 Vital Signs Date/Time: Apr 02, 2016 Cardiac Monitoring Heart Rate 80 bpm Weight 261.2 lbs Height 62 in BMI 47.77 Index Blood Pressure Diastolic 66 mmHg Blood Pressure Systolic 124 mmHg Results No Known Results Summary Purpose eClinicalWorks Submission
--- OUTSIDE RECORDS SUMMARY | 2016-12-12 16:35 | XMS REPORT ---
Author Author DAISY MARIN [facility] eClinicalWorks Address Unknown Phone Unavailable Care Team Providers Care Store Standards Associate Name Role Phone DAISY MARIN Unavailable Allergies No Known Allergies Problems Problem Type Condition Code Onset Dates Condition Status Problem Chronic constipation K59.00 Active Problem Anxiety F41.9 Active Problem Diabetes type 2, controlled E11.9 Active Problem Diabetes type 2, uncontrolled E11.65 Active Assessment Wound of toenail, subsequent encounter S91.209D Active Medications Medication Code System Code Instructions Start Date End Date Status Dosage Silvadene [facility] [address]-39 1 % Externally Once a day (please deliver) November 28, 2015 1 application to affected area Results No Known Results Summary Purpose eClinicalWorks Submission
--- OUTSIDE RECORDS SUMMARY | 2016-12-12 16:35 | XMS REPORT ---
Author Author DAISY MARIN [facility] eClinicalWorks Address Unknown Phone Unavailable Care Team Providers Care Manuscripts Curator Name Role Phone DAISY MARIN Unavailable Allergies No Known Allergies Problems Problem Type Condition Code Onset Dates Condition Status Problem Chronic constipation K59.00 Active Problem Anxiety F41.9 Active Problem Diabetes type 2, controlled E11.9 Active Problem Diabetes type 2, uncontrolled E11.65 Active Medications Medication Code System Code Instructions Start Date End Date Status Dosage Lisinopril [facility] [address]-20 2.5 MG Orally Once a day October 07, 2014 1 tablet metformin NDC 0 850 mg orally Once a day Aug 28, 2014 1 tablet Results No Known Results Summary Purpose eClinicalWorks Submission
--- OUTSIDE RECORDS SUMMARY | 2016-12-12 16:35 | XMS REPORT ---
Author Author DAISY MARIN [facility] eClinicalWorks Address Unknown Phone Unavailable Care Team Providers Care Sawmilling Operator Name Role Phone DAISY MARIN Unavailable Allergies No Known Allergies Problems Problem Type Condition Code Onset Dates Condition Status Problem Anxiety F41.9 Active Problem Diabetes type 2, uncontrolled E11.65 Active Problem Chronic constipation K59.00 Active Medications No Known Medications Results No Known Results Summary Purpose eClinicalWorks Submission
--- OUTSIDE RECORDS SUMMARY | 2016-12-12 16:35 | XMS REPORT ---
Author Author MILLY GILLESPIE [facility] Address [address] [place] [address] Care Team Providers Care Interior Specialist Name Role Phone MILLY GILLESPIE Unavailable PROBLEMS Type Condition ICD9-CM Code [id number] Code Onset Dates Condition Status SNOMED Code Assessment Diabetes type 2, uncontrolled E11.65 Apr, Active 723707546 Assessment Encounter for immunization Z23 Apr, Active 653653006 Problem Diabetic polyneuropathy associated with type 2 diabetes mellitus E11.42 Active 98773501 Problem Gastroparesis due to secondary diabetes E13.43 Active 4879041 Problem Anxiety F41.9 Active 94649126 Problem Diabetes type 2, uncontrolled E11.65 Active 137467668 Problem Diabetes type 2, controlled E11.9 Active 84677691 Problem Chronic constipation K59.00 Active 934258740 ALLERGIES Substance Reaction Event Type Date Status Sulfamethoxazole-Trimethoprim swelling Drug Allergy Apr, Active SOCIAL HISTORY No smoking Hx information available PLAN OF CARE VITAL SIGNS Height 62 in 2016-04-21 Weight 257.4 lbs 2016-04-21 Heart Rate 78 bpm 2016-04-21 Respiratory Rate 16 2016-04-21 BMI 47.07 kg/m2 2016-04-21 Blood pressure systolic 110 mmHg 2016-04-21 Blood pressure diastolic 62 mmHg 2016-04-21 MEDICATIONS Medication Instructions Dosage Frequency Start Date End Date Duration Status Promethazine HCl 25 MG Orally every 12 hrs for nausea 1 tablet as needed 30 Active Hydrochlorothiazide 12.5 MG Orally Once a day 1 capsule 24h Mar, 30 day(s) Active Clonazepam 1 MG Orally Once a day 1.5 tabs in pm 24h Sep, Active Prevacid 30 MG TAKE ONE (1) CAPSULE BY MOUTH ONCE DAILY... Active Linzess 145 MCG Orally Once a day (DX: chronic constipation/abd pain) 1 capsule May, Active Glucometer 1 glucometer as directed Jan, Active Lyrica 150 MG Orally 3 times a day 1 capsule 8h Sep, Active Fetzima Titration 40 mg Orally Once a day 1 tablet 24h Apr, Active TRUEplus Lancets 28G - USE TO CHECK BLOOD SUGAR FOUR (4) TIMES DAILY... Active Erythrocin Stearate 250 MG Active BusPIRone HCl 10 mg Orally 2 times a day 1 tablet 12h May, Active HydrOXYzine HCl 50 MG Orally 3 times a day 1/2 in am 1/2 tab noon and 1 tablet at bedtime 8h Active metformin 850 mg orally Once a day 1 tablet 24h Aug, Active Lisinopril 2.5 MG Orally Once a day 1 tablet 24h Oct, Active Voltaren 1 % Transdermal 2 times a day as directed 12h Jun, Active Ultram 50 mg Orally every 4-6 hours as needed 1 tablet as needed Active Blood Glucose Test Strip ... subcutaneously 4 times a day as directed 6h Jan, Active Lancets Lancets test blood sugar 6h Feb, Active Trulicity 1.5 MG/0.5ML INJECT 0.5ML'S SUBCUTANEOUSLY ONCE WEEKLY... Active Pen [place] 29G X 12MM subcutaneous 4 times a day Inject 6h Active Sucralfate 1 GM Orally Once a day at bedtime 1 tablet on an empty stomach Active Levothyroxine Sodium 25 MCG Orally Once a day 1 tablet 24h Jul, Active RESULTS No Results PROCEDURES Procedure Date Ordered Related Diagnosis Body Site Office Visit, Est Pt., Level 4 Apr 21, 2016 FLUARIX QUAD P-FREE 3 AND UP .50 2015Apr 21, 2016 SINGLE IMMUNIZATION ADMIN Apr 21, 2016 IMMUNIZATIONS Vaccine Route Administration Date Status FLUARIX QUAD P-FREE 3 AND UP .50 2015 IM Intramuscular Apr 21, 2016 Administered
--- OUTSIDE RECORDS SUMMARY | 2016-12-12 16:35 | XMS REPORT ---
Author Author DAYANA BRAGA [facility] Address [address] [place] [address] Care Team Providers Care Chemical Engineering Intern Name Role Phone DAYANA BRAGA Unavailable PROBLEMS Type Condition ICD9-CM Code [id number] Code Onset Dates Condition Status SNOMED Code Assessment Gastroparesis K31.84 Apr, Active 903640888 Assessment Diabetes type 2, controlled E11.9 Apr, Active 417558306 Problem Diabetic polyneuropathy associated with type 2 diabetes mellitus E11.42 Active 89447206 Problem Gastroparesis due to secondary diabetes E13.43 Active 3637401 Problem Anxiety F41.9 Active 26779587 Problem Diabetes type 2, uncontrolled E11.65 Active 692944530 Problem Diabetes type 2, controlled E11.9 Active 21719128 Problem Chronic constipation K59.00 Active 667272494 ALLERGIES Unknown Allergies SOCIAL HISTORY No smoking Hx information available PLAN OF CARE VITAL SIGNS MEDICATIONS Unknown Medications RESULTS Name Result Date Reference Range TSH W/ FREE T4 2016-04-14 TSH 1.090 0.450-4.500 T4,Free(Direct) 1.18 0.82-1.77 CBC 2016-04-14 WBC 13.7 3.4-10.8 RBC 4.99 3.77-5.28 Hemoglobin 14.1 11.1-15.9 Hematocrit 42.9 34.0-46.6 MCV 86 79-97 MCH 28.3 26.6-33.0 MCHC 32.9 31.5-35.7 RDW 15.3 12.3-15.4 Platelets 367 150-379 Neutrophils 56 Lymphs 36 Monocytes 5 Eos 3 Basos 0 Immature Cells Neutrophils (Absolute) 7.6 1.4-7.0 Lymphs (Absolute) 5.0 0.7-3.1 Monocytes(Absolute) 0.6 0.1-0.9 Eos (Absolute) 0.4 0.0-0.4 Baso (Absolute) 0.0 0.0-0.2 Immature Granulocytes 0 Immature Grans (Abs) 0.0 0.0-0.1 [facility] Hematology Comments: LIPID PANEL 2016-04-14 Cholesterol, Total 168 100-199 Triglycerides 228 0-149 HDL Cholesterol 39 >39 VLDL Cholesterol Chuck 46 5-40 LDL Cholesterol Calc 83 0-99 Comment: CMP 2016-04-14 Glucose, Serum 187 65-99 BUN 8 6-24 Creatinine, Serum 0.61 0.57-1.00 eGFR If NonAfricn Am 109 >59 eGFR If Africn Am 126 >59 BUN/Creatinine Ratio 13 9-23 Sodium, Serum 140 134-144 Potassium, Serum 4.3 3.5-5.2 Chloride, Serum 103 97-108 Carbon Dioxide, Total 20 18-29 Calcium, Serum 9.1 8.7-10.2 Protein, Total, Serum 6.9 6.0-8.5 Albumin, Serum 4.0 3.5-5.5 Globulin, Total 2.9 1.5-4.5 A/G Ratio 1.4 1.1-2.5 Bilirubin, Total <0.2 0.0-1.2 Alkaline Phosphatase, S 109 39-117 AST (SGOT) 15 0-40 ALT (SGPT) 19 0-32 PROCEDURES Procedure Date Ordered Related Diagnosis Body Site [facility] Apr 14, 2016 VENIPUNCT, ROUTINE* Apr 14, 2016 IMMUNIZATIONS No Known Immunizations
--- OUTSIDE RECORDS SUMMARY | 2016-12-12 16:35 | XMS REPORT ---
Author Author MILLY GILLESPIE [facility] Address [address] [place] [address] Care Team Providers Care Wool Hat Hydraulicker Name Role Phone MILLY GILLESPIE Unavailable PROBLEMS Type Condition ICD9-CM Code [id number] Code Onset Dates Condition Status SNOMED Code Problem Diabetic polyneuropathy associated with type 2 diabetes mellitus E11.42 Active 86609580 Problem Gastroparesis due to secondary diabetes E13.43 Active 3508092 Problem Anxiety F41.9 Active 19043343 Problem Diabetes type 2, uncontrolled E11.65 Active 440008239 Problem Diabetes type 2, controlled E11.9 Active 92854474 Problem Chronic constipation K59.00 Active 352591495 ALLERGIES Unknown Allergies SOCIAL HISTORY No smoking Hx information available PLAN OF CARE VITAL SIGNS MEDICATIONS Unknown Medications RESULTS No Results PROCEDURES No Known procedures IMMUNIZATIONS No Known Immunizations
--- OUTSIDE RECORDS SUMMARY | 2016-12-12 16:35 | XMS REPORT ---
Author Author DAYANA BRAGA [facility] Address [address] [place] [address] Care Team Providers Care Foil Cutter Name Role Phone DAYANA BRAGA Unavailable PROBLEMS Type Condition ICD9-CM Code OQB06-AO Code Onset Dates Condition Status SNOMED Code Problem Diabetic polyneuropathy associated with type 2 diabetes mellitus E11.42 Active 00488768 Problem Gastroparesis due to secondary diabetes E13.43 Active 2371026 Problem Anxiety F41.9 Active 53532553 Problem Diabetes type 2, uncontrolled E11.65 Active 099531832 Problem Diabetes type 2, controlled E11.9 Active 44404291 Problem Chronic constipation K59.00 Active 199358059 ALLERGIES Unknown Allergies SOCIAL HISTORY No smoking Hx information available PLAN OF CARE VITAL SIGNS MEDICATIONS Medication Instructions Dosage Frequency Start Date End Date Duration Status Clonazepam 1 MG Orally Once a day 1.5 tabs in pm 24h 10 Sep, 2015 Active RESULTS No Results PROCEDURES No Known procedures IMMUNIZATIONS No Known Immunizations
--- OUTSIDE RECORDS SUMMARY | 2016-12-12 16:35 | XMS REPORT ---
Author Author DYLLAN SOSA Organization eClinicalWorks Address Unknown Phone Unavailable Care Team Providers Care Ticket Maker Name Role Phone DYLLAN SOSA CP Unavailable [...]
--- OUTSIDE RECORDS SUMMARY | 2016-12-12 16:35 | XMS REPORT ---
Author Author DAISY MARIN [facility] eClinicalWorks Address Unknown Phone Unavailable Care Team Providers Care Cloud Consultant Name Role Phone DAISY MARIN Unavailable Allergies [...] Start Date End Date Status Dosage Clonazepam [facility] [address]-67 0.5 MG Orally Once a day at bedtime as needed. Must last one month October 07, 2014 1 [address] [facility] [address]-07 50 MG Orally every 4 hrs PRN. Must last one month October 07, 2014 1-2 tablet Fetzima Titration [facility] [address]-89 40 mg Orally Once a day Apr 30, 2015 1 tablet Results No Known Results Summary Purpose eClinicalWorks Submission
--- OUTSIDE RECORDS SUMMARY | 2016-12-12 16:35 | XMS REPORT ---
Author Author DAVID BUSTILLO [facility] eClinicalWorks Address Unknown Phone Unavailable Care Team Providers Care Mental Retardation Nurse Name Role Phone DAVID BUSTILLO CP Unavailable [...] Medications Procedures Procedure Coding System Code Date Psychotherapy, patient &/family, 30 minutes, established patient CPT-4 54361 Jun 30, 2016 Results No Known Results Summary Purpose eClinicalWorks Submission
--- OUTSIDE RECORDS SUMMARY | 2016-12-12 16:35 | XMS REPORT ---
Author Author DYLLAN SOSA Organization eClinicalWorks Address Unknown Phone Unavailable Care Team Providers Care Audit Intern Name Role Phone DYLLAN SOSA CP Unavailable Allergies No Known Allergies Problems Problem Type Condition Code Onset Dates Condition Status Assessment Anxiety F41.9 Active Problem Anxiety F41.9 Active Problem Diabetes [...] Status Dosage Clonazepam [facility] [address]-13 1 MG Orally Once a day Sep 17, 2015 1.5 tabs in pm Results No Known Results Summary Purpose eClinicalWorks Submission
--- OUTSIDE RECORDS SUMMARY | 2016-12-12 16:35 | XMS REPORT ---
Author Author DYLLAN SOSA [facility] Address [address] [place] [address] Care Team Providers Care Examination Scorer Name Role Phone DYLLAN SOSA Unavailable PROBLEMS Type Condition ICD9-CM Code [id number] Code Onset Dates Condition Status SNOMED Code Problem Diabetes type 2, uncontrolled E11.65 Active 866826360 Problem Chronic constipation K59.00 Active 785414599 Problem Anxiety F41.9 Active 83314358 Problem PTSD (post-traumatic stress disorder) F43.10 Active 90602911 Problem Other chronic pain G89.29 Active 79800339 Problem Gastroparesis due to secondary diabetes E13.43 Active 0020625 Problem Diabetes type 2, controlled E11.9 Active 24757348 Problem Acquired hypothyroidism E03.9 Active 393312315 Problem Diabetic polyneuropathy associated with type 2 diabetes mellitus E11.42 Active 85717477 ALLERGIES Unknown Allergies SOCIAL HISTORY No smoking Hx information available PLAN OF CARE VITAL SIGNS MEDICATIONS Unknown Medications RESULTS No Results PROCEDURES No Known procedures IMMUNIZATIONS No Known Immunizations
--- OUTSIDE RECORDS SUMMARY | 2016-12-12 16:35 | XMS REPORT ---
Author Author DYLLAN SOSA [facility] Address [address] [place] [address] Care Team Providers Care Dehydrogenation Operator Head Name Role Phone DYLLAN SOSA Unavailable PROBLEMS Type Condition ICD9-CM Code [id number] Code Onset Dates Condition Status SNOMED Code Problem Diabetes type 2, uncontrolled E11.65 Active 383659456 Problem Chronic constipation K59.00 Active 757931514 Problem Anxiety F41.9 Active 75090655 Problem PTSD (post-traumatic stress disorder) F43.10 Active 87963859 Problem Other chronic pain G89.29 Active 23484617 Problem Gastroparesis due to secondary diabetes E13.43 Active 9694182 Problem Diabetes type 2, controlled E11.9 Active 80982849 Problem Acquired hypothyroidism E03.9 Active 643486288 Problem Diabetic polyneuropathy associated with type 2 diabetes mellitus E11.42 Active 45328686 ALLERGIES Unknown Allergies SOCIAL HISTORY No smoking Hx information available PLAN OF CARE VITAL SIGNS MEDICATIONS Unknown Medications RESULTS No Results PROCEDURES No Known procedures IMMUNIZATIONS No Known Immunizations
--- OUTSIDE RECORDS SUMMARY | 2016-12-12 16:35 | XMS REPORT ---
Author Author DAISY MARIN eClinicalWorks Address Unknown Phone Unavailable Care Team Providers Care Chaperone Name Role Phone DAISY MARIN Unavailable Allergies, Adverse Reactions, Alerts Substance Reaction Event Type Sulfamethoxazole-Trimethoprim swelling Drug Allergy Problems Problem Type Condition ICD-9 Code Onset Dates Condition Status Assessment PTSD (post-traumatic stress disorder) 309.81 Active Problem Mononeuritis of unspecified site 355.9 Active Assessment Anxiety and depression 300.00 Active Problem Unspecified constipation 564.00 Active Problem Heartburn 787.1 Active Problem Uncontrolled type 2 diabetes with neuropathy 250.62 Active Problem Other specified disease of nail 703.8 Active Problem Other abnormal blood chemistry 790.6 Active Problem Insomnia, unspecified 780.52 Active Problem Unspecified hereditary and idiopathic peripheral neuropathy 356.9 Active Medications Medication Code System Code Instructions Start Date End Date Status Dosage Lancets NDC 0 March 05, 2014 4 times per day Dx 250.02 doxepin [facility] [address]-77 100 mg orally Once a day October 09, 2014 take 2 capsules Hydrochlorothiazide [facility] [address]-19 12.5 MG Orally Once a day Mar 13, 2015 1 capsule Prevacid [facility] [address]-54 30 MG Orally Once a day February 15, 2015 1 capsule Pen [place] [facility] [address] 29G X 12MM subcutaneous 4 times a day Inject Victoza [facility] [address]-23 18 MG/3ML Subcutaneous Once a day 1.8 mg Prozac [facility] [address]-56 20 MG Orally Once a day Apr 16, 2015 1 capsule in the morning metformin ND 0 850 mg orally Once a day Aug 28, 2014 1 tablet Zofran [facility] [address]-05 8 MG Orally 2 times a day PRN nausea Apr 16, 2015 1 tablet Lyrica [facility] [address]-05 150 MG Orally Three times a day October 09, 2014 1 capsule Lisinopril [facility] [address]-59 2.5 MG Orally Once a day October 07, 2014 1 tablet Sucralfate [facility] [address]-13 1 GM Orally Once a day at bedtime 1 tablet on an empty stomach Clonazepam [facility] [address]-28 0.5 MG Orally Once a day at bedtime as needed. Must last one month October 07, 2014 1 tablet Trutest Blood Glucose Meter [facility] [address]-05 not defined Ultram [facility] [address]-75 50 MG Orally every 4 hrs PRN. Must last one month October 07, 2014 1-2 tablet Levemir FlexTouch [facility] [address]-81 100 UNIT/ML Subcutaneous 2 times a day February 17, 2015 22 units Procedures Procedure Coding System Code Date Office Visit, Est Pt., Level 3 CPT-4 89254 Apr 16, 2015 Vital Signs Date/Time: Apr 16, 2015 Temperature 99.1 F Weight 282.0 lbs Height 62 in BMI 51.57 Index Blood Pressure Diastolic 90 mmHg Blood Pressure Systolic 130 mmHg Cardiac Monitoring Heart Rate 98 bpm Results No Known Results Summary Purpose eClinicalWorks Submission
--- OUTSIDE RECORDS SUMMARY | 2016-12-12 16:35 | XMS REPORT ---
Author Author DAISY MARIN [facility] eClinicalWorks Address Unknown Phone Unavailable Care Team Providers Care Ballet Master/Mistress Name Role Phone ADISY MARIN Unavailable Allergies No Known Allergies Problems Problem Type Condition Code Onset Dates Condition Status Problem Anxiety F41.9 Active Problem Diabetes type 2, uncontrolled E11.65 Active Problem Chronic constipation K59.00 Active Assessment Elevated white blood cell count D72.829 Active Assessment Multiple joint pain M25.50 Active Medications No Known Medications Procedures Procedure Coding System Code Date ANTINUCLEAR ANTIBODIES CPT-4 66719 Sep 17, 2015 Results No Known Results Summary Purpose eClinicalWorks Submission
--- OUTSIDE RECORDS SUMMARY | 2016-12-12 16:35 | XMS REPORT ---
Author Author DYLLAN SOSA [facility] Address [address] [place] [address] Care Team Providers Care Appian Developer Name Role Phone DYLLAN SOSA Unavailable PROBLEMS Type Condition ICD9-CM Code CTK92-VI Code Onset Dates Condition Status SNOMED Code Problem Diabetes type 2, uncontrolled E11.65 Active 048206646 Problem Chronic constipation K59.00 Active 199643309 Problem Anxiety F41.9 Active 21811636 Problem PTSD (post-traumatic stress disorder) F43.10 Active 04010651 Problem Other chronic pain G89.29 Active 99202997 Problem Gastroparesis due to secondary diabetes E13.43 Active 3309974 Problem Diabetes type 2, controlled E11.9 Active 65353483 Problem Acquired hypothyroidism E03.9 Active 765078037 Problem Diabetic polyneuropathy associated with type 2 diabetes mellitus E11.42 Active 25689526 ALLERGIES Unknown Allergies SOCIAL HISTORY No smoking Hx information available PLAN OF CARE VITAL SIGNS MEDICATIONS Medication Instructions Dosage Frequency Start Date End Date Duration Status Fetzima Titration 40 mg Orally Once a day 2 tablet 24h Apr, Active RESULTS No Results PROCEDURES No Known procedures IMMUNIZATIONS No Known Immunizations
--- OUTSIDE RECORDS SUMMARY | 2016-12-12 16:36 | XMS REPORT ---
Author Author DAISY MARIN eClinicalWorks Address Unknown Phone Unavailable Care Team Providers Care Associate Sales Name Role Phone DAISY MARIN Unavailable Allergies, Adverse Reactions, Alerts Substance Reaction Event Type Sulfamethoxazole-Trimethoprim swelling Drug Allergy Problems Problem Type Condition Code Onset Dates Condition Status Assessment Encounter for immunization Z23 Active Problem Other abnormal blood chemistry 790.6 Active Problem Mononeuritis of unspecified site 355.9 Active Assessment Depression with anxiety F41.8 Active Assessment Diabetes type 2, uncontrolled E11.65 Active Problem Uncontrolled type 2 diabetes with neuropathy 250.62 Active Problem Unspecified constipation 564.00 Active Problem Diabetes type 2, uncontrolled E11.65 Active Problem Unspecified hereditary and idiopathic peripheral neuropathy 356.9 Active Problem Other specified disease of nail 703.8 Active Problem Heartburn 787.1 Active Problem Insomnia, unspecified 780.52 Active Medications Medication Code System Code Instructions Start Date End Date Status Dosage Trulicity [facility] [address]-44 1.5 MG/0.5ML Subcutaneous Once weekly Apr 30, 2015 Jul 29, 2015 0.5 ml Hydrochlorothiazide [facility] [address]-50 12.5 MG Orally Once a day Mar 13, 2015 1 capsule BusPIRone HCl [facility] [address]-10 5 MG Orally 2 times a day May 14, 2015 1 tablet Linzess [facility] [address]-02 290 MCG Orally Once a day May 14, 2015 Jun 13, 2015 1 capsule Levemir FlexTouch [facility] [address]-26 100 UNIT/ML Subcutaneous 2 times a day February 17, 2015 22 units Lyrica [facility] [address]-55 150 MG Orally Three times a day October 09, 2014 1 capsule Prevacid [facility] [address]-14 30 MG Orally Once a day February 15, 2015 1 capsule Sucralfate [facility] [address]-89 1 GM Orally Once a day at bedtime 1 tablet on an empty stomach Fetzima Titration [facility] [address]-38 20 & 40 MG Orally (20 mg x 2 days then 40 mg daily) Apr 30, 2015 as directed Lancets [facility] 0 March 05, 2014 4 times per day Dx 250.02 Ultram [facility] [address]-84 50 MG Orally every 4 hrs PRN. Must last one month October 07, 2014 1-2 tablet Clonazepam [facility] [address]-43 0.5 MG Orally Once a day at bedtime as needed. Must last one month October 07, 2014 1 tablet doxepin [facility] [address]-30 100 mg orally Once a day as needed October 09, 2014 take 1-2 capsules HydrOXYzine HCl [facility] [address]-49 50 MG Orally 3 times a day Apr 30, 2015 1/2 in am 1/2 tab noon and 1 tablet at bedtime Pen [place] [facility] [address] 29G X 12MM subcutaneous 4 times a day Inject Zofran [facility] [address]-24 8 MG Orally 2 times a day PRN nausea Apr 16, 2015 1 tablet Lansoprazole [facility] [address]-95 30 MG Orally Once a day May 14, 2015 1 capsule Lisinopril [facility] [address]-69 2.5 MG Orally Once a day October 07, 2014 1 tablet Trutest Blood Glucose Meter [facility] [address]-76 not defined metformin [facility] 0 850 mg orally Once a day Aug 28, 2014 1 tablet Procedures Procedure Coding System Code Date SINGLE IMMUNIZATION ADMIN CPT-4 00177 May 14, 2015 Office Visit, Est Pt., Level 3 CPT-4 36641 May 14, 2015 FLUARIX QUAD (3 & UP)-Breeze-2014 CPT-4 89667 May 14, 2015 Vital Signs Date/Time: May 14, 2015 Temperature 97.5 F Weight 274 lbs Height 62 in BMI 50.11 Index Blood Pressure Diastolic 72 mmHg Blood Pressure Systolic 128 mmHg Cardiac Monitoring Heart Rate 84 bpm Results No Known Results Immunizations Vaccine Administration Date FLUARIX QUAD (3 & UP)-GSK-2014May 14, 2015 Summary Purpose eClinicalWorks Submission
--- OUTSIDE RECORDS SUMMARY | 2016-12-12 16:36 | XMS REPORT ---
Author Author DYLLAN SOSA Organization eClinicalWorks Address Unknown Phone Unavailable Care Team Providers Care Seo Team Lead Name Role Phone DYLLAN SOSA CP Unavailable [...] diabetes E13.43 Active Medications No Known Medications Vital Signs Date/Time: Jun 18, 2016 Blood Pressure Diastolic 64 mmHg Blood Pressure Systolic 120 mmHg Height 62 in Results No Known Results Summary Purpose eClinicalWorks Submission
--- OUTSIDE RECORDS SUMMARY | 2016-12-12 16:36 | XMS REPORT ---
Author DAISY Dodson eClinicalWorks Address Unknown Phone Unavailable Care Team Providers Care Warpman Name Role Phone DAISY MARIN Unavailable Allergies, Adverse Reactions, Alerts Substance Reaction Event Type Sulfamethoxazole-Trimethoprim swelling Drug Allergy Problems Problem Type Condition Code Onset Dates Condition Status Problem Chronic constipation K59.00 Active Problem Anxiety F41.9 Active Problem Diabetes type 2, controlled E11.9 Active Assessment Plantar fascia syndrome M72.2 Active Problem Diabetes type 2, uncontrolled E11.65 Active Assessment Wound of toenail, subsequent encounter S91.209D Active Medications Medication Code System Code Instructions Start Date End Date Status Dosage Fluticasone Propionate [facility] [address]-82 50 MCG/ACT Nasally Once a day November 21, 2015 1 spray in each nostril Levemir FlexTouch [facility] [address]-70 100 UNIT/ML Subcutaneous 2 times a day February 17, 2015 20 units Levothyroxine Sodium [facility] [address]-97 25 MCG Orally Once a day Jul 30, 2015 1 tablet BusPIRone HCl [facility] [address]-93 10 MG Orally 2 times a day May 14, 2015 1 tablet Clonazepam [facility] [address]-32 1 MG Orally Once a day Sep 17, 2015 1.5 tabs in pm Prevacid [facility] [address]-54 30 MG Orally Once a day February 15, 2015 1 capsule Erythrocin Stearate [facility] [address]-45 250 MG Orally not defined Sucralfate [facility] [address]-59 1 GM Orally Once a day at bedtime 1 tablet on an empty stomach metformin [facility] 0 850 mg orally Once a day Aug 28, 2014 1 tablet Lisinopril [facility] [address]-77 2.5 MG Orally Once a day October 07, 2014 1 tablet Voltaren [facility] [address]-27 1 % Transdermal 2 times a day Jun 10, 2015 as directed Fetzima Titration [facility] [address]-22 40 mg Orally Once a day Apr 30, 2015 1 tablet Trutest Blood Glucose Meter [facility] [address]-03 not defined Lancets [place] 0 ... 4 times a day March 05, 2014 4 times per day Dx 250.02 Linzess [facility] [address]-73 145 MCG Orally Once a day (DX: chronic constipation/abd pain) May 29, 2015 1 capsule Ultram [facility] [address]-79 50 MG Orally every 4 hrs PRN. Must last one month October 07, 2014 1-2 tablet Hydrochlorothiazide [facility] [address]-04 12.5 MG Orally Once a day Mar 13, 2015 1 capsule HydrOXYzine HCl [facility] [address]-73 50 MG Orally 3 times a day Apr 30, 2015 1/2 in am 1/2 tab noon and 1 tablet at bedtime Trutest Blood Glucose Test Strip ND 0 ... 4 times a day Jul 18, 2015 as directed Trulicity [facility] [address]-39 1.5 MG/0.5ML Subcutaneous once weekly Oct 01, 2015 0.5 ml Hydrocodone-Acetaminophen [facility] [address]-18 5-325 MG Orally every 6 hrs PRN November 26, 2015 1 tablet as needed Lyrica [facility] [address]-33 150 MG Orally 3 times a day Oct 01, 2015 1 capsule Pen [place] [facility] [address]11 29G X 12MM subcutaneous 4 times a day Inject Procedures Procedure Coding System Code Date Office Visit, Est Pt., Level 3 CPT-4 76678 December 05, 2015 Vital Signs Date/Time: December 05, 2015 Temperature 98.1 F Weight 259.2 lbs Height 62 in BMI 47.40 Index Blood Pressure Diastolic 68 mmHg Blood Pressure Systolic 122 mmHg Cardiac Monitoring Heart Rate 76 bpm Results No Known Results Summary Purpose eClinicalWorks Submission
--- OUTSIDE RECORDS SUMMARY | 2016-12-12 16:36 | XMS REPORT ---
Author Author DAISY MARIN eClinical[employer] Address Unknown Phone Unavailable Care Team Providers Care Hydraulic Assembler Name Role Phone DAISY MARIN Unavailable Allergies No Known Allergies Problems Problem Type Condition Code Onset Dates Condition Status Problem Anxiety F41.9 Active Problem Diabetes type 2, uncontrolled E11.65 Active Problem Chronic constipation K59.00 Active Assessment Diabetes type 2, uncontrolled E11.65 Active Medications Medication Code System Code Instructions Start Date End Date Status Dosage Levothyroxine Sodium [facility] [address]-56 25 MCG Orally Once a day Jul 30, 2015 1 tablet HydrOXYzine HCl [facility] [address]-32 50 MG Orally 3 times a day Apr 30, 2015 1/2 in am 1/2 tab noon and 1 tablet at bedtime Ultram [facility] [address]-48 50 MG Orally every 4 hrs PRN. Must last one month October 07, 2014 1-2 tablet Lyrica [facility] [address]-95 150 MG Orally Three times a day October 09, 2014 1 capsule Results No Known Results Summary Purpose eClinicalWorks Submission
--- OUTSIDE RECORDS SUMMARY | 2016-12-12 16:36 | XMS REPORT ---
Author Author DAISY MARIN [facility] eClinicalWorks Address Unknown Phone Unavailable Care Team Providers Care Manufacture Specialist Name Role Phone DAISY MARIN Unavailable Allergies No Known Allergies Problems Problem Type Condition Code Onset Dates Condition Status Problem Chronic constipation K59.00 Active Problem Anxiety F41.9 Active Problem Diabetes type 2, controlled E11.9 Active Problem Diabetes type 2, uncontrolled E11.65 Active Assessment Diabetes type 2, controlled E11.9 Active Medications Medication Code System Code Instructions Start Date End Date Status Dosage Lyrica [facility] [address]-14 150 MG Orally 3 times a day Oct 01, 2015 1 capsule Results No Known Results Summary Purpose eClinicalWorks Submission
--- OUTSIDE RECORDS SUMMARY | 2016-12-12 16:36 | XMS REPORT ---
Author Author DAISY MARIN eClinical[employer] Address Unknown Phone Unavailable Care Team Providers Care Eyewear Consultant Name Role Phone DAISY MARIN Unavailable Allergies No Known Allergies Problems Problem Type Condition Code Onset Dates Condition Status Problem Chronic constipation K59.00 Active Problem Anxiety F41.9 Active Problem Diabetes type 2, controlled E11.9 Active Problem Diabetes type 2, uncontrolled E11.65 Active Assessment Diabetes type 2, controlled E11.9 Active Medications Medication Code System Code Instructions Start Date End Date Status Dosage BusPIRone HCl [facility] [address]-34 10 mg Orally 2 times a day May 14, 2015 1 tablet Levothyroxine Sodium [facility] [address]-06 25 MCG Orally Once a day Jul 30, 2015 1 tablet Ultram [facility] [address]-44 50 mg Orally every 4-6 hours as needed 1 tablet as needed Results No Known Results Summary Purpose eClinicalWorks Submission
--- OUTSIDE RECORDS SUMMARY | 2016-12-12 16:36 | XMS REPORT ---
Author Author BRANDIN OMALLEY Organization eClinicalWorks Address Unknown Phone Unavailable Care Team Providers Care Senior Python Developer Name Role Phone BRANDIN OMALLEY CP Unavailable Allergies No Known Allergies Problems Problem Type Condition Code Onset Dates Condition Status Problem Chronic constipation K59.00 Active Problem Anxiety F41.9 Active Problem Diabetes type 2, controlled E11.9 Active Problem Diabetes type 2, uncontrolled E11.65 Active Medications Medication Code System Code Instructions Start Date End Date Status Dosage Ultram [facility] [address]-59 50 mg Orally every 4-6 hours as needed 1 tablet as needed Results No Known Results Summary Purpose eClinicalWorks Submission
== END 2016-11-10 13:17 | disposition home or self-care (01) ==
LOC: SDC 07:15
PROVIDERS: ATTEND Orthopaedic Surgery
DX: M23.8X2 Other internal derangements of left knee (principal); M22.42 Chondromalacia patellae, left knee; E11.9 Type 2 diabetes mellitus without complications; F32.9 Major depressive disorder, single episode, unspecified; Z79.899 Other long term (current) drug therapy
CPT/HCPCS: 73560; 82962; 84703; 87081

== ENCOUNTER 2017-03-11 13:17 | Outpatient (CLI) | payer MEDICAID ==
[~2017-03-11] VITALS: Ht 157.5 cm; Wt 116.3 kg
[~2017-03-11 13:17] MED LIST changes: +OXYC-197 PO
[2017-03-11 13:35] VITALS: BP 110/58
[2017-03-11] MEDS ORDERED: MONT10TA24 PO (13:56)
[2017-03-11] MEDS ORDERED: ESCI20TA45 PO (13:56)
[2017-03-11] MEDS ORDERED: TRAM50TA2 PO (13:56)
== END 2017-03-11 14:05 | disposition home or self-care (01) ==
LOC: PREOP 13:17
PROVIDERS: ATTEND Orthopaedic Surgery
DX: Z01.818 Encounter for other preprocedural examination (principal); M23.200 Derangement of unspecified lateral meniscus due to old tear or injury, right knee
CPT/HCPCS: 87081

== ENCOUNTER 2017-03-16 06:59 | Day surgery (SDC) | payer MEDICAID ==
[~2017-03-16] VITALS: Ht 157.5 cm; Wt 112.7 kg
[~2017-03-16 06:59] MED LIST changes: +ESCI20TA45 PO; +MONT10TA24 PO; +TRAM50TA2 PO
[2017-03-16] MEDS ORDERED: ceFAZolin 1 GM/NS 50 ML IVPB IV ONE ×2 (07:15)
[2017-03-16] MEDS ORDERED: CATHETER FLUSH 10 ML SYR IV PRN (07:15)
[2017-03-16] MEDS ORDERED: BUPIVACAINE 0.25% 30 ML (SENSORCAINE) VIAL ONE (07:16)
[2017-03-16] MEDS ORDERED: morphine PF (DURAMORPH) 10 MG/10 ML AMP ONE (07:17)
[2017-03-16 07:27] VITALS: BP 119/87
[2017-03-16] MEDS ORDERED: HYDROcodone/APAP 7.5 MG/325 MG (LORTAB, LORCET PLUS) TABLET PO PRN (07:30)
[2017-03-16] MEDS ORDERED: FAMOTIDINE 20MG/2ML IV (PEPCID) IV ONE (07:30)
[2017-03-16] MEDS ORDERED: MIDAZOLAM 2 MG/2 ML (VERSED) VIAL IV ONE (07:30)
--- NOTE | 2017-03-16 07:33 | Progress Note-Pre Operative ---
Pre-Operative Progress Note H&P Reviewed The H&P was reviewed, patient examined and no changes noted. Date Seen by Provider: Mar 16, 2017 Time Seen by Provider: 07:21 Date H&P Reviewed: Mar 16, 2017 Time H&P Reviewed: 07:05 Pre-Operative Diagnosis: right knee medial meniscal tear BRANDIN CELESTIN MD Mar 16, 2017 07:33
--- NOTE | 2017-03-16 07:34 | Progress Note-Post Operative ---
Post-Operative Progess Note Surgeon (s)/Stock Drier Tender (s) Surgeon BRANDIN CELESTIN MD Stock Drier Tender: Fidencio Lucas Pre-Operative Diagnosis right knee medial meniscal tear Post-Operative Diagnosis right knee medial meniscal tear and chondromalacia of the medial femoral condyle, medial tibial plateau, lateral tibial plateau and patella Procedure & Operative Findings Date of Procedure 03/16/17 Procedure Performed/Findings right knee arthroscopic partial medial meniscectomy and chondroplasty of the medial femoral condyle, medial tibial plateau, lateral tibial plateau and patella Anesthesia Type GETA Estimated Blood Loss Estimated blood loss (mL): minimal Specimens/Packing Specimens Removed none Packing: none BRANDIN CELESTIN MD Mar 16, 2017 07:34
[2017-03-16] MEDS: LACTATED RINGERS 1,000 ML IV PRN ×2 (07:38→09:54)
[2017-03-16] MEDS ORDERED: MIDAZOLAM 2 MG/2 ML (VERSED) VIAL ONE (07:42)
[2017-03-16] MEDS ORDERED: fentaNYL INJECTION 100 MCG/2 ML AMP ONE (07:42)
[2017-03-16] MEDS ORDERED: SEVOFLURANE (ULTANE) 15 ML INHAL SOLN ONE ×3 (09:14→09:15)
[2017-03-16] MEDS ORDERED: ROCURONIUM 50 MG/5 ML (ZEMURON) VIAL IV ONE (09:14)
[2017-03-16] MEDS ORDERED: LACTATED RINGERS 1,000 ML IV ONE ×2 (09:14→10:09)
[2017-03-16] MEDS ORDERED: LIDOCAINE PF 2% 5 ML (XYLOCAINE) VIAL ONE (09:14)
[2017-03-16] MEDS ORDERED: proPOfol 200 MG/20 ML (DIPRIVAN) VIAL IV ONE (09:14)
[2017-03-16] MEDS ORDERED: ONDANSETRON 4 MG/2 ML (SDV) Z0FRAN ONE (09:14)
[2017-03-16] MEDS ORDERED: SUCCINYLCHOLINE INJ 100 MG/5 ML SYR ONE (09:14)
[2017-03-16] MEDS ORDERED: GLYCOPYRROLATE 0.2 MG/ML (ROBINUL) 2 ML VIAL ONE ×2 (09:15→10:09)
[2017-03-16] MEDS ORDERED: NEOSTIGMINE (BLOXIVERZ ) 1 MG/1ML 10 ML VIAL ONE (09:15)
[2017-03-16] MEDS ORDERED: ALBUTEROL INHALER HFA (VENTOLIN HFA) 8 GM IH ONE ×3 (09:25→10:09)
[2017-03-16] MEDS ORDERED: morphine INJ 10 MG/ML 1ML (SYR OR VIAL) ONE (09:35)
[2017-03-16] MEDS ORDERED: ONDANSETRON 4 MG/2 ML (SDV) Z0FRAN IVP PRN (10:15)
[2017-03-16] MEDS ORDERED: morphine INJ 10 MG/ML 1ML (SYR OR VIAL) IVP PRN (10:15)
[2017-03-16] MEDS ORDERED: fentaNYL INJECTION 100 MCG/2 ML AMP IVP PRN (10:15)
[2017-03-16 10:45] VITALS: BP 102/60
[2017-03-16 11:15] VITALS: BP 102/60
[2017-03-16] MEDS ORDERED: HYDR-3816 PO (11:18)
[2017-03-16 11:45] VITALS: BP 102/60
[2017-03-16 12:00] VITALS: BP 102/60
--- NOTE | 2017-03-16 12:01 | Physical Therapy Ortho Eval ---
PT Orthopedic Evaluation Type of Surgery Knee Scope right side, WBAT Prior Level of Function Current Living Status: Locomotion (Upon Admit): Quad Cane Established Durable Medical Eq: Front Wheeled Walker Subjective Subjective Patient in bed pre tx, agrees to PT, has pain of 6/10 in right knee. She has had knee scopes before and is familiar with the home exercises. Entry Into Home: Stairs Without Railing Steps Into Home: 2 Objective Objective right knee extension +3 degrees, flexion 90 degrees Motor Control Motor Control: Motor Control WNL Strength NT Transfer Transfers (B, C, W/C) (FIM): 5 Gait Gait Assistive Device: FWW Weight Bearing Restriction: Weight Bearing/Tolerated Location Restriction: R LE Gait (FIM): 5 Distance: 150' Gait Level of Assist: 5 Summary/Comments Patient also went up and down 1 step using a rolling walker with SBA, cues for foot placement. Treatment Rendered Treatment: Therapeutic Exercises, Gait Train, Step Train Exercise Instruction: Quad Sets, Straight Leg Raise, Heel Slides, Ankle Pumps LAQ Assessment/Goals Goal Time Frame: 1 Visit Plan Treatment Plan: Discharge PT/Family Agrees to Plan: Yes Time Time In: 1135 Time Out: 1150 Total Billed Treatment Time: 15 Billed Treatment Time 1 visit EVL 15' Yes PT/OT Therapy GCodes Therapy Functional Limitation: Physical Therapy Test(s)/Tool used to determine: Level of Assistance Scale Functional Limitation-Current Charge Code: MOBCUR Modifier: CI Functional Limitation-Goal Charge Code: MOBGOAL Modifier: CI Functional Limitation-D/C Charge Codes: MOBDC Modifier: CI NAYA STEPHENSON PT Mar 16, 2017 12:01
--- NOTE | 2017-03-16 12:35 | OPERATIVE REPORT ---
DATE OF SERVICE: 03/16/2017 PREOPERATIVE DIAGNOSIS: Right knee medial meniscal tear. POSTOPERATIVE DIAGNOSIS: 1. Right knee medial meniscal tear. 2. Right knee chondromalacia of the medial femoral condyle. 3. 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 4. Right knee chondromalacia of the lateral tibial plateau. 5. Right knee chondromalacia of the patella. PROCEDURES: 1. Right knee arthroscopic partial medial meniscectomy. 2. Right knee arthroscopic chondroplasty of the medial femoral condyle. 3. Right knee arthroscopic chondroplasty of the medial tibial plateau. 4. Right knee arthroscopic chondroplasty of the lateral tibial plateau. 5. Right knee arthroscopic chondroplasty of the patella. SURGEON: Donald Celestin MD. LEARNING DEVELOPMENT SPECIALIST: Fidencio Lucas, who assisted throughout the procedure and closed the incisions. ANESTHESIA: General endotracheal by Bobbi Hernandez CRNA. TOURNIQUET TIME: Not applicable. ESTIMATED BLOOD LOSS: Minimal. DRAINS: None. COMPLICATIONS: None. POSTOPERATIVE PLAN: Routine arthroscopy protocol. The patient was transported to the recovery room awake and in stable condition. STATEMENT OF MEDICAL NECESSITY: The patient is a 47-year-old female with complaints of right knee pain, catching, locking and swelling. She was tender along the medial joint line and had pain medially with Mary's. She denied instability episodes. She had failed to respond to conservative measures and due to functional impairment, the patient elected to proceed with surgical intervention. Examination under anesthesia revealed range of motion 0/0/130. She had a positive glide 1+ Odell, 1+ anterior drawer, negative posterior drawer. No varus or valgus laxity. ARTHROSCOPIC FINDINGS: The patella demonstrated grade 2 chondral flap centrally in a 8 x 8 area. The trochlea demonstrated no gross chondral abnormalities. The medial and lateral gutters were clear. The lateral compartment demonstrated a grade 2 chondral flap of the central portion of the tibial plateau in a 10 x 8 area. No lateral meniscal pathology was noted. The PCL was intact. The ACL was approximately 50% disrupted from its femoral attachment. The medial compartment demonstrated a tear of the posterior horn and body of the meniscus and approximately one-third of the posterior horn and body. In addition, there were grade 2 chondral flaps centrally on the femoral condyle in a 10 x 10 area and centrally over the tibial plateau in a 10 x 10 area. PROCEDURE: After risks and benefits of the procedure were discussed and questions were answered, an informed consent was signed and placed on the chart. The operative site was confirmed in the preoperative holding area and initialed by the surgeon. The patient was then transported to the operating room and after adequate levels of general endotracheal anesthetic were obtained, a timeout was called confirming the operative site. An examination under anesthesia was performed with the above findings noted. The right lower extremity was prepped and draped in the usual sterile fashion. The knee joint was injected with 60 mL of fluid and a standard inferior lateral portal was placed for the arthroscope. Under direct visualization, an inferomedial portal was created. The menisci cruciates were carefully probed with the above findings noted. The unstable chondral flaps on the patella were debrided with a shaver back to stable edges. The scope was then redirected into the lateral compartment of the unstable chondral flaps and the lateral tibial plateau were debrided with a shaver back to a stable edge. The scope was then redirected into the medial compartment where the unstable chondral flaps in the medial femoral condyle and medial tibial plateau were debrided with a shaver back to a stable edge. The posterior horn and body of the medial meniscus were debrided with the body and the shaver and removing approximately one-third of the posterior horn and body. This was carefully probed with no further tear or instability noted. The knee was copiously irrigated and the port sites were closed with 3-0 nylon in simple interrupted fashion. The knee was dressed with Duramorph. The portal sites were infiltrated with plain Marcaine and soft dressing was applied and the patient was transported to the recovery room awake and in stable condition. Job ID: [id number] DocumentID: [id number] Dictated Date: 03/16/2017 09:29:51 Merchandising Stock Associate Date: 03/16/2017 12:34:01 Dictated By: DONALD CELESTIN MD
== END 2017-03-16 12:00 | disposition home or self-care (01) ==
LOC: SDC 06:59
PROVIDERS: ATTEND Orthopaedic Surgery
DX: M23.8X1 Other internal derangements of right knee (principal); M22.41 Chondromalacia patellae, right knee; F41.9 Anxiety disorder, unspecified; F32.9 Major depressive disorder, single episode, unspecified; E11.40 Type 2 diabetes mellitus with diabetic neuropathy, unspecified; K21.9 Gastro-esophageal reflux disease without esophagitis; Z79.899 Other long term (current) drug therapy; G47.33 Obstructive sleep apnea (adult) (pediatric); I10 Essential (primary) hypertension; I48.91 Unspecified atrial fibrillation; Z87.891 Personal history of nicotine dependence; E66.01 Morbid (severe) obesity due to excess calories; Z68.42 Body mass index [BMI] 45.0-49.9, adult; K58.9 Irritable bowel syndrome, unspecified; K22.70 Barrett's esophagus without dysplasia
CPT/HCPCS: 82962; 84703

== ENCOUNTER 2017-04-27 11:40 | Outpatient (CLI) | payer MEDICAID ==
[~2017-04-27] VITALS: Ht 157.5 cm; Wt 113.4 kg
[2017-04-27 11:49] VITALS: BP 124/70
[2017-04-27] MEDS ORDERED: ONDA8TAB6 PO (12:08)
[2017-04-27] MEDS ORDERED: SUCR1TAB PO (12:08)
[2017-04-27] MEDS ORDERED: HYDR50TA76 PO (12:08)
[2017-04-27] MEDS ORDERED: OXYB5TAB9 PO (12:08)
[2017-04-27] MEDS ORDERED: SOLI10TA2 PO (12:08)
== END 2017-04-27 12:05 | disposition home or self-care (01) ==
LOC: PREOP 11:40
PROVIDERS: ATTEND Orthopaedic Surgery
DX: S83.511A Sprain of anterior cruciate ligament of right knee, initial encounter; Z01.818 Encounter for other preprocedural examination; X58.XXXA Exposure to other specified factors, initial encounter; Y99.8 Other external cause status
CPT/HCPCS: 87081

== ENCOUNTER 2017-05-04 06:00 | Day surgery (SDC) | payer MEDICAID ==
--- NOTE | 2017-04-26 21:56 | HISTORY AND PHYSICAL ---
DATE OF SERVICE: DATE OF SERVICE: 05/04/2017 For right knee arthroscopic ACL reconstruction. HISTORY: The patient is 47-year-old female who has previously undergone right knee arthroscopies and was found to have a partial ACL tear. Unfortunately, she has had continued feelings of instability and giving way which is markedly functioning limiting. She has undergone treatment with physical therapy. She ambulates with a cane because of the instability. Due to functional impairment, the patient has elected to proceed with surgical intervention. REVIEW OF SYSTEMS: No chest pain, no shortness of breath, no dysuria. PAST MEDICAL HISTORY: Anxiety disorder, depression, diabetes, reflux, irritable bowel syndrome, migraines, sleep apnea, diabetic neuropathy, gastroparesis, Mendez's esophagitis. PAST SURGICAL HISTORY: Adenoidectomy, EGD, right knee arthroscopy. FAMILY HISTORY: Unknown. MEDICATIONS: 1. Prevacid. 2. Hydroxyzine. 3. Trilisate. 4. Levothyroxine. 5. Lisinopril. 6. Fluconazole. 7. Lyrica. 8. Linzess. 9. Hydrochlorothiazide. 10. MiraLax. 11. Mobic. 12. Metformin. 13. Voltaren. 14. Buspirone. 15. Sucralfate. 16. Zofran. 17. Clonazepam. 18. Fetzima. ALLERGIES: SULFAMETHOXAZOLE. SOCIAL HISTORY: The patient is a former smoker. She denies alcohol use. PHYSICAL EXAMINATION: GENERAL: The patient is well-developed, well-nourished in no acute distress. HEENT: Normocephalic, atraumatic. Pupils equal, round, and reactive to light. Oropharynx is clear. NECK: Supple. No lymphadenopathy. LUNGS: Clear to auscultation bilaterally. HEART: Regular rate and rhythm. ABDOMEN: Soft, nontender, nondistended. EXTREMITIES: The right knee demonstrates a moderate effusion. She has a 2+ Odell with a spongy endpoint, 2+ anterior drawer with a spongy endpoint, 2+ anterior drawer with a spongy endpoint and a positive pivot shift. No varus or valgus laxity, negative posterior drawer. Range of motion 0/0/135. IMPRESSION: Right anterior cruciate ligament deficiency. PLAN: Right knee arthroscopic ACL reconstruction. The risks, benefits, options, ramifications, and recovery were discussed at length with the patient. She understands and wishes to proceed. Job ID: [id number] DocumentID: [id number] Dictated Date: 04/26/2017 08:31:41 Set Up Mold Technician Date: 04/26/2017 08:51:02 Dictated By: BRANDIN CELESTIN MD
[~2017-05-04] VITALS: Ht 157.5 cm; Wt 113.4 kg
[~2017-05-04 06:00] MED LIST changes: +ONDA8TAB6 PO; +OXYB5TAB9 PO; +SOLI10TA2 PO
--- OUTSIDE RECORDS SUMMARY | 2017-05-04 06:12 | XMS REPORT ---
Author Author DYLLAN GAMING Organization [facility] Address [address] [place] [address] Care Team Providers Care Corporate Human Resources Manager Name Role Phone DYLLAN GAMING Unavailable PROBLEMS Type Condition ICD9-CM Code [id number] Code Onset Dates Condition Status SNOMED Code Problem Low back pain M54.5 Active 683542559 Problem Irritable bowel syndrome with both constipation and diarrhea K58.2 Active 45729464 Problem Left foot pain M79.672 Active 50772678 Problem Diarrhea, unspecified type R19.7 Active 80561558 Problem Chronic constipation K59.00 Active 804785259 Problem Post traumatic stress disorder (PTSD) F43.10 Active 68063909 Problem Anxiety F41.9 Active 27811432 Problem Diabetes type 2, uncontrolled E11.65 Active 209914689 Problem Gastroparesis K31.84 Active 416279378 Problem Gastric pain R10.9 Active 088102334 Problem Chronic diarrhea K52.9 Active 945275257 Problem GERD without esophagitis K21.9 Active 091938483 Problem Diabetic polyneuropathy associated with type 2 diabetes mellitus E11.42 Active 12386479 Problem Acquired hypothyroidism E03.9 Active 309145902 Problem Diabetes type 2, controlled E11.9 Active 43794837 Problem Gastroparesis due to secondary diabetes E13.43 Active 7407944 Problem Pain in left knee M25.562 Active 853820258965667 Problem Pain in right knee M25.561 Active 864689215195042 Problem Other chronic pain G89.29 Active 78398240 Problem Anxiety about health F41.8 Active 223167370 Problem PTSD (post-traumatic stress disorder) F43.10 Active 71138943 Problem Constipation by delayed colonic transit K59.01 Active 99543869 ALLERGIES Unknown Allergies SOCIAL HISTORY No smoking Hx information available PLAN OF CARE VITAL SIGNS MEDICATIONS Unknown Medications RESULTS No Results PROCEDURES No Known procedures IMMUNIZATIONS No Known Immunizations
--- OUTSIDE RECORDS SUMMARY | 2017-05-04 06:12 | XMS REPORT ---
Author Author DYLLAN GAMING [facility] Address [address] [place] [address] Care Team Providers Care Fuel Cell Battery Technician Name Role Phone DYLLAN GAMING Unavailable PROBLEMS Type Condition ICD9-CM Code FIG94-JD Code Onset Dates Condition Status SNOMED Code Problem Low back pain M54.5 Active 282856729 Problem Gastric pain R10.9 Active 260050276 Problem Irritable bowel syndrome with both constipation and diarrhea K58.2 Active 26282087 Problem Stress incontinence N39.3 Active 22802829 Problem Diabetes type 2, controlled E11.9 Active 26000940 Problem Diarrhea, unspecified type R19.7 Active 58191139 Problem Anxiety F41.9 Active 95562043 Problem Chronic constipation K59.00 Active 762830669 Problem GERD without esophagitis K21.9 Active 968999926 Problem Gastroparesis K31.84 Active 941434929 Problem Post traumatic stress disorder (PTSD) F43.10 Active 58054216 Problem Chronic diarrhea K52.9 Active 132169810 Problem Acquired hypothyroidism E03.9 Active 028869134 Problem Other chronic pain G89.29 Active 81114303 Problem Gastroparesis due to secondary diabetes E13.43 Active 0031085 Problem Diabetic polyneuropathy associated with type 2 diabetes mellitus E11.42 Active 89924901 Problem Pain in left knee M25.562 Active 650743432304504 Problem Pain in right knee M25.561 Active 934776539310204 Problem PTSD (post-traumatic stress disorder) F43.10 Active 64612856 Problem Constipation by delayed colonic transit K59.01 Active 26050027 Problem Diabetes type 2, uncontrolled E11.65 Active 035981688 Problem Anxiety about health F41.8 Active 048313878 Problem Left foot pain M79.672 Active 35434199 ALLERGIES Unknown Allergies SOCIAL HISTORY No smoking Hx information available PLAN OF CARE VITAL SIGNS MEDICATIONS Unknown Medications RESULTS No Results PROCEDURES No Known procedures IMMUNIZATIONS No Known Immunizations
--- OUTSIDE RECORDS SUMMARY | 2017-05-04 06:12 | XMS REPORT ---
Author Author DYLLAN GAMING [facility] Address [address] [place] [address] Care Team Providers Care Yarn Conditioner Name Role Phone DYLLAN GAMING Unavailable PROBLEMS Type Condition ICD9-CM Code [id number]-EF Code Onset Dates Condition Status SNOMED Code Problem Low back pain M54.5 Active 951727448 Problem Gastric pain R10.9 Active 794620478 Problem Irritable bowel syndrome with both constipation and diarrhea K58.2 Active 59373147 Problem Stress incontinence N39.3 Active 68253747 Problem Diabetes type 2, controlled E11.9 Active 05657321 Problem Diarrhea, unspecified type R19.7 Active 33888165 Problem Anxiety F41.9 Active 29239125 Problem Chronic constipation K59.00 Active 825273758 Problem GERD without esophagitis K21.9 Active 136244266 Problem Gastroparesis K31.84 Active 185685497 Problem Post traumatic stress disorder (PTSD) F43.10 Active 41474860 Problem Chronic diarrhea K52.9 Active 670409102 Problem Acquired hypothyroidism E03.9 Active 369780301 Problem Other chronic pain G89.29 Active 79673409 Problem Gastroparesis due to secondary diabetes E13.43 Active 6478959 Problem Diabetic polyneuropathy associated with type 2 diabetes mellitus E11.42 Active 26098654 Problem Pain in left knee M25.562 Active 691585573263817 Problem Pain in right knee M25.561 Active 028164679587997 Problem PTSD (post-traumatic stress disorder) F43.10 Active 67020833 Problem Constipation by delayed colonic transit K59.01 Active 24150808 Problem Diabetes type 2, uncontrolled E11.65 Active 679923876 Problem Anxiety about health F41.8 Active 312711791 Problem Left foot pain M79.672 Active 22851569 ALLERGIES Unknown Allergies SOCIAL HISTORY No smoking Hx information available PLAN OF CARE VITAL SIGNS MEDICATIONS Medication Instructions Dosage Frequency Start Date End Date Duration Status Clonazepam 1 MG Orally Once a day 1.5 tabs in pm 24h 10 Sep, 2015 0 days Active RESULTS No Results PROCEDURES No Known procedures IMMUNIZATIONS No Known Immunizations
--- OUTSIDE RECORDS SUMMARY | 2017-05-04 06:12 | XMS REPORT ---
Author Author DYLLAN GAMING Organization [facility] Address [address] [place] [address] Care Team Providers Care Cranberry Sorter Name Role Phone DYLLAN GMAING Unavailable PROBLEMS Type Condition ICD9-CM Code [id number] Code Onset Dates Condition Status SNOMED Code Problem Low back pain M54.5 Active 184063660 Problem Irritable bowel syndrome with both constipation and diarrhea K58.2 Active 35068261 Problem Left foot pain M79.672 Active 33331368 Problem Diarrhea, unspecified type R19.7 Active 59195501 Problem Chronic constipation K59.00 Active 164810003 Problem Post traumatic stress disorder (PTSD) F43.10 Active 83634260 Problem Anxiety F41.9 Active 22082748 Problem Diabetes type 2, uncontrolled E11.65 Active 630550366 Problem Gastroparesis K31.84 Active 800371364 Problem Gastric pain R10.9 Active 605687174 Problem Chronic diarrhea K52.9 Active 836838683 Problem GERD without esophagitis K21.9 Active 779260609 Problem Diabetic polyneuropathy associated with type 2 diabetes mellitus E11.42 Active 75305610 Problem Acquired hypothyroidism E03.9 Active 730164141 Problem Diabetes type 2, controlled E11.9 Active 42972919 Problem Gastroparesis due to secondary diabetes E13.43 Active 8769553 Problem Pain in left knee M25.562 Active 247667498795327 Problem Pain in right knee M25.561 Active 842753211086676 Problem Other chronic pain G89.29 Active 20222404 Problem Anxiety about health F41.8 Active 719276786 Problem PTSD (post-traumatic stress disorder) F43.10 Active 96075599 Problem Constipation by delayed colonic transit K59.01 Active 65041768 ALLERGIES Unknown Allergies SOCIAL HISTORY No smoking Hx information available PLAN OF CARE VITAL SIGNS MEDICATIONS Unknown Medications RESULTS No Results PROCEDURES No Known procedures IMMUNIZATIONS No Known Immunizations
--- OUTSIDE RECORDS SUMMARY | 2017-05-04 06:12 | XMS REPORT ---
Author Author DYLLAN GAMING Organization [facility] Address [address] [place] [address] Care Team Providers Care Managing Partner Name Role Phone DYLLAN GAMING Unavailable PROBLEMS Type Condition ICD9-CM Code [id number] Code Onset Dates Condition Status SNOMED Code Problem Low back pain M54.5 Active 143675804 Problem Irritable bowel syndrome with both constipation and diarrhea K58.2 Active 17859599 Problem Left foot pain M79.672 Active 80236186 Problem Diarrhea, unspecified type R19.7 Active 78912716 Problem Chronic constipation K59.00 Active 671431634 Problem Post traumatic stress disorder (PTSD) F43.10 Active 79914141 Problem Anxiety F41.9 Active 02290898 Problem Diabetes type 2, uncontrolled E11.65 Active 145420760 Problem Gastroparesis K31.84 Active 372406476 Problem Gastric pain R10.9 Active 970424312 Problem Chronic diarrhea K52.9 Active 989505127 Problem GERD without esophagitis K21.9 Active 972848435 Problem Diabetic polyneuropathy associated with type 2 diabetes mellitus E11.42 Active 80889701 Problem Acquired hypothyroidism E03.9 Active 718306508 Problem Diabetes type 2, controlled E11.9 Active 07830625 Problem Gastroparesis due to secondary diabetes E13.43 Active 8681062 Problem Pain in left knee M25.562 Active 238943598065661 Problem Pain in right knee M25.561 Active 842125856685275 Problem Other chronic pain G89.29 Active 34398127 Problem Anxiety about health F41.8 Active 750766648 Problem PTSD (post-traumatic stress disorder) F43.10 Active 00784347 Problem Constipation by delayed colonic transit K59.01 Active 08454708 ALLERGIES Unknown Allergies SOCIAL HISTORY No smoking Hx information available PLAN OF CARE VITAL SIGNS MEDICATIONS Medication Instructions Dosage Frequency Start Date End Date Duration Status Fetzima 80 MG Orally Once a day 1 capsule 24h Jul, Active RESULTS No Results PROCEDURES No Known procedures IMMUNIZATIONS No Known Immunizations
--- OUTSIDE RECORDS SUMMARY | 2017-05-04 06:13 | XMS REPORT ---
Author Author DYLLAN GAMING Organization [facility] Address [address] [place] [address] Care Team Providers Care Audiometrist Name Role Phone DYLLAN GAMING Unavailable PROBLEMS Type Condition ICD9-CM Code [id number] Code Onset Dates Condition Status SNOMED Code Problem Low back pain M54.5 Active 926536485 Problem Gastric pain R10.9 Active 398944128 Problem Irritable bowel syndrome with both constipation and diarrhea K58.2 Active 24546553 Problem Stress incontinence N39.3 Active 43026805 Problem Diabetes type 2, controlled E11.9 Active 82325485 Problem Diarrhea, unspecified type R19.7 Active 08005495 Problem Anxiety F41.9 Active 83312277 Problem Chronic constipation K59.00 Active 356499217 Problem GERD without esophagitis K21.9 Active 172217424 Problem Gastroparesis K31.84 Active 010502924 Problem Post traumatic stress disorder (PTSD) F43.10 Active 46584956 Problem Chronic diarrhea K52.9 Active 293939366 Problem Acquired hypothyroidism E03.9 Active 168572247 Problem Other chronic pain G89.29 Active 19003584 Problem Gastroparesis due to secondary diabetes E13.43 Active 1318968 Problem Diabetic polyneuropathy associated with type 2 diabetes mellitus E11.42 Active 92380209 Problem Pain in left knee M25.562 Active 482999611656472 Problem Pain in right knee M25.561 Active 054929033240054 Problem PTSD (post-traumatic stress disorder) F43.10 Active 26098043 Problem Constipation by delayed colonic transit K59.01 Active 15123852 Problem Diabetes type 2, uncontrolled E11.65 Active 118528536 Problem Anxiety about health F41.8 Active 393287826 Problem Left foot pain M79.672 Active 19754919 ALLERGIES Substance Reaction Event Type Date Status Sulfamethoxazole-Trimethoprim swelling Drug Allergy Aug, Active SOCIAL HISTORY No smoking Hx information available PLAN OF CARE Activity Details Follow Up 2 - 3 Days Reason:if not improving, return stool kits VITAL SIGNS Height 62 in 2016-08-16 Weight 251.2 lbs 2016-08-16 Temperature 98.0 degrees Fahrenheit 2016-08-16 Heart Rate 110 bpm 2016-08-16 Respiratory Rate 18 2016-08-16 BMI 45.94 kg/m2 2016-08-16 Blood pressure systolic 100 mmHg 2016-08-16 Blood pressure diastolic 60 mmHg 2016-08-16 MEDICATIONS Medication Instructions Dosage Frequency Start Date End Date Duration Status BusPIRone HCl 10 MG TAKE ONE (1) TABLET BY MOUTH TWICE DAILY... Active Hydrochlorothiazide 12.5 MG Orally Once a day 1 capsule 24h Mar, Active Zofran 8 MG Orally Once a day as needed for nausea 1 tablet Aug, Active Trulicity 1.5 MG/0.5ML Subcutaneous once weekly 0.5 ml Active Fetzima 80 MG Orally Once a day 1 capsule 24h Jul, Active MiraLax Orally 2 times a day 1 packet mixed with 8 ounces of fluid 12h Active Vitamin D-3 1000 UNIT Orally Once a day 1 capsule 24h Active HydrOXYzine HCl 50 MG Orally 3 times a day 1/2 in am 1/2 tab noon and 1 tablet at bedtime 8h Active Lyrica 150 MG Orally 3 times a day 1 capsule 8h Sep, Active Linzess 145 MCG Orally Once a day (DX: chronic constipation/abd pain) 1 capsule May, Active Metformin HCl 850 MG Orally twice a day 1 tablet with a meal 12h Jul, Active Sucralfate 1 GM Orally Once a day at bedtime 1 tablet on an empty stomach Active Mobic 7.5 MG Orally twice a day 1 tablet 12h Jun, Active Fluticasone Propionate 50 MCG/ACT Nasally Once a day 1 spray in each nostril 24h Nov, Active Lisinopril 2.5 MG Orally Once a day 1 tablet 24h Oct, Active Voltaren 1 % Transdermal 2 times a day as directed 12h Active Prevacid 30 MG Orally Once a day 1 capsule 24h Active Clonazepam 1 MG Orally Once a day 1.5 tabs in pm 24h 10 Sep, 2015 0 days Active Levothyroxine Sodium 25 MCG Orally Once a day 1 tablet 24h Jul, Active RESULTS Name Result Date Reference Range CBC 2016-08-16 WBC 16.0 3.4-10.8 RBC 5.08 3.77-5.28 Hemoglobin 14.0 11.1-15.9 Hematocrit 42.3 34.0-46.6 MCV 83 79-97 MCH 27.6 26.6-33.0 MCHC 33.1 31.5-35.7 RDW 15.1 12.3-15.4 Platelets 290 150-379 Neutrophils 64 Lymphs 31 Monocytes 4 Eos 1 Basos 0 Immature Cells Neutrophils (Absolute) 10.0 1.4-7.0 Lymphs (Absolute) 5.0 0.7-3.1 Monocytes(Absolute) 0.6 0.1-0.9 Eos (Absolute) 0.2 0.0-0.4 Baso (Absolute) 0.0 0.0-0.2 Immature Granulocytes 0 Immature Grans (Abs) 0.0 0.0-0.1 [facility] Hematology Comments: PROCEDURES Procedure Date Ordered Related Diagnosis Body Site Office Visit, Est Pt., Level 3 Aug 16, 2016 IMMUNIZATIONS No Known Immunizations
--- OUTSIDE RECORDS SUMMARY | 2017-05-04 06:13 | XMS REPORT ---
Author Author DYLLAN GAMING Organization [facility] Address [address] [place] [address] Care Team Providers Care Procedure Analyst Name Role Phone DYLLAN GAMING Unavailable PROBLEMS Type Condition ICD9-CM Code QVN22-DF Code Onset Dates Condition Status SNOMED Code Problem Low back pain M54.5 Active 905532815 Problem Irritable bowel syndrome with both constipation and diarrhea K58.2 Active 68292424 Problem Left foot pain M79.672 Active 04286246 Problem Diarrhea, unspecified type R19.7 Active 16507907 Problem Chronic constipation K59.00 Active 354968603 Problem Post traumatic stress disorder (PTSD) F43.10 Active 52389185 Problem Anxiety F41.9 Active 62478783 Problem Diabetes type 2, uncontrolled E11.65 Active 741417920 Problem Gastroparesis K31.84 Active 713519810 Problem Gastric pain R10.9 Active 964786899 Problem Chronic diarrhea K52.9 Active 004203598 Problem GERD without esophagitis K21.9 Active 307481092 Problem Diabetic polyneuropathy associated with type 2 diabetes mellitus E11.42 Active 73712806 Problem Acquired hypothyroidism E03.9 Active 952078018 Problem Diabetes type 2, controlled E11.9 Active 16172817 Problem Gastroparesis due to secondary diabetes E13.43 Active 6917810 Problem Pain in left knee M25.562 Active 739098886882281 Problem Pain in right knee M25.561 Active 391980625359224 Problem Other chronic pain G89.29 Active 46222553 Problem Anxiety about health F41.8 Active 126682988 Problem PTSD (post-traumatic stress disorder) F43.10 Active 75391004 Problem Constipation by delayed colonic transit K59.01 Active 31892961 ALLERGIES Substance Reaction Event Type Date Status Sulfamethoxazole-Trimethoprim swelling Drug Allergy Jun, Active SOCIAL HISTORY No smoking Hx information available PLAN OF CARE Activity Details Follow Up 2 Weeks if skin cellulitis not improving Reason:4 weeks [facility]M pain( [facility] DM visit needed in Jul) VITAL SIGNS Height 62 in 2016-06-16 Weight 251.1 lbs 2016-06-16 Temperature 98.1 degrees Fahrenheit 2016-06-16 Heart Rate 72 bpm 2016-06-16 Respiratory Rate 16 2016-06-16 BMI 45.92 kg/m2 2016-06-16 Blood pressure systolic 122 mmHg 2016-06-16 Blood pressure diastolic 70 mmHg 2016-06-16 MEDICATIONS Medication Instructions Dosage Frequency Start Date End Date Duration Status Lyrica 150 MG Orally 3 times a day 1 capsule 8h Sep, Active Hydrochlorothiazide 12.5 MG Orally Once a day 1 capsule 24h Mar, Active Clonazepam 1 MG Orally Once a day 1.5 tabs in pm 24h Sep, Active Mobic 7.5 MG Orally twice a day 1 tablet 12h Jun, Active Vitamin D-3 1000 UNIT Orally Once a day 1 capsule 24h Active Levothyroxine Sodium 25 MCG Orally Once a day 1 tablet 24h Jul, Active metformin 850 mg orally Once a day 1 tablet 24h Aug, Active Prevacid 30 MG Orally Once a day 1 capsule 24h Active Linzess 145 MCG Orally Once a day (DX: chronic constipation/abd pain) 1 capsule May, Active Sucralfate 1 GM Orally Once a day at bedtime 1 tablet on an empty stomach Active Cephalexin 500 MG Orally Twice a day 1 capsule 12h Jun, Jun, 10 days Active Trulicity 1.5 MG/0.5ML Subcutaneous once weekly 0.5 ml Active Fetzima Titration 40 mg Orally Once a day 2 tablet 24h Apr, Active Fluticasone Propionate 50 MCG/ACT Nasally Once a day 1 spray in each nostril 24h Nov, Active Voltaren 1 % Transdermal 2 times a day as directed 12h Active HydrOXYzine HCl 50 MG Orally 3 times a day 1/2 in am 1/2 tab noon and 1 tablet at bedtime 8h Active Lisinopril 2.5 MG Orally Once a day 1 tablet 24h Oct, Active BusPIRone HCl 10 mg Orally 2 times a day 1 tablet 12h Active RESULTS No Results PROCEDURES Procedure Date Ordered Related Diagnosis Body Site Office Visit, Est Pt., Level 4 Jun 16, 2016 IMMUNIZATIONS No Known Immunizations
--- OUTSIDE RECORDS SUMMARY | 2017-05-04 06:14 | XMS REPORT ---
Author Author DYLLAN GAMING Organization [facility] Address [address] [place] [address] Care Team Providers Care Millstone Cleaner Name Role Phone DYLLAN GAMING Unavailable PROBLEMS Type Condition ICD9-CM Code UMF67-QT Code Onset Dates Condition Status SNOMED Code Problem Low back pain M54.5 Active 690667003 Problem Irritable bowel syndrome with both constipation and diarrhea K58.2 Active 77218781 Problem Left foot pain M79.672 Active 35145476 Problem Diarrhea, unspecified type R19.7 Active 06294552 Problem Chronic constipation K59.00 Active 073875508 Problem Post traumatic stress disorder (PTSD) F43.10 Active 08253093 Problem Anxiety F41.9 Active 61970466 Problem Diabetes type 2, uncontrolled E11.65 Active 590554105 Problem Gastroparesis K31.84 Active 846957778 Problem Gastric pain R10.9 Active 581512004 Problem Chronic diarrhea K52.9 Active 529371039 Problem GERD without esophagitis K21.9 Active 546695562 Problem Diabetic polyneuropathy associated with type 2 diabetes mellitus E11.42 Active 65118104 Problem Acquired hypothyroidism E03.9 Active 375010704 Problem Diabetes type 2, controlled E11.9 Active 32657028 Problem Gastroparesis due to secondary diabetes E13.43 Active 8877484 Problem Pain in left knee M25.562 Active 285986554366601 Problem Pain in right knee M25.561 Active 046145782627010 Problem Other chronic pain G89.29 Active 52983520 Problem Anxiety about health F41.8 Active 982705266 Problem PTSD (post-traumatic stress disorder) F43.10 Active 93945320 Problem Constipation by delayed colonic transit K59.01 Active 98153557 ALLERGIES Substance Reaction Event Type Date Status Sulfamethoxazole-Trimethoprim swelling Drug Allergy Jul, Active SOCIAL HISTORY No smoking Hx information available PLAN OF CARE Activity Details Follow Up 4 Weeks Reason:CHM DM (seperate pain appt in the next few weeks as needed) VITAL SIGNS Height 62 in 2016-07-16 Weight 240 lbs 2016-07-16 Temperature 97.8 degrees Fahrenheit 2016-07-16 Heart Rate 118 bpm 2016-07-16 Respiratory Rate 16 2016-07-16 BMI 43.89 kg/m2 2016-07-16 Blood pressure systolic 118 mmHg 2016-07-16 Blood pressure diastolic 60 mmHg 2016-07-16 MEDICATIONS Medication Instructions Dosage Frequency Start Date End Date Duration Status Fetzima Titration 40 mg Orally Once a day 2 tablet 24h Apr, Active Trulicity 1.5 MG/0.5ML Subcutaneous once weekly 0.5 ml Active Linzess 145 MCG Orally Once a day (DX: chronic constipation/abd pain) 1 capsule May, Active Lisinopril 2.5 MG Orally Once a day 1 tablet 24h Oct, Active Lyrica 150 MG Orally 3 times a day 1 capsule 8h Sep, Active Clonazepam 1 MG Orally Once a day 1.5 tabs in pm 24h Sep, Active metformin 850 mg orally Once a day 1 tablet 24h Aug, Active MiraLax Orally 2 times a day 1 packet mixed with 8 ounces of fluid 12h Active BusPIRone HCl 10 MG TAKE ONE (1) TABLET BY MOUTH TWICE DAILY... Active Levothyroxine Sodium 25 MCG Orally Once a day 1 tablet 24h Jul, Active Hydrochlorothiazide 12.5 MG Orally Once a day 1 capsule 24h Mar, Active Mobic 7.5 MG Orally twice a day 1 tablet 12h Jun, Active HydrOXYzine HCl 50 MG Orally 3 times a day 1/2 in am 1/2 tab noon and 1 tablet at bedtime 8h Active Metformin HCl 850 MG Orally twice a day 1 tablet with a meal 12h Jul, 90 days Active Fluticasone Propionate 50 MCG/ACT Nasally Once a day 1 spray in each nostril 24h Nov, Active BusPIRone HCl 10 mg Orally 2 times a day 1 tablet 12h Active Vitamin D-3 1000 UNIT Orally Once a day 1 capsule 24h Active Sucralfate 1 GM Orally Once a day at bedtime 1 tablet on an empty stomach Active Prevacid 30 MG Orally Once a day 1 capsule 24h Active Voltaren 1 % Transdermal 2 times a day as directed 12h Active RESULTS Name Result Date Reference Range Xray : Knee, Right Xray : Foot, Left A1C (IN HOUSE) A1C IN HOUSE 7.4 4.3 - 5.6 % Previous A1c 5.9 Lot [id number] Exp date 04/25 PROCEDURES Procedure Date Ordered Related Diagnosis Body Site GLYCATED HEMOGLOBIN TEST Jul 16, 2016 Office Visit, Est Pt., Level 4 Jul 16, 2016 IMMUNIZATIONS No Known Immunizations
--- OUTSIDE RECORDS SUMMARY | 2017-05-04 06:14 | XMS REPORT ---
Author Author DYLLAN GAMING [facility] Address [address] [place] [address] Care Team Providers Care Delivery Aide Name Role Phone DYLLAN GAMING Unavailable PROBLEMS Type Condition ICD9-CM Code [id number] Code Onset Dates Condition Status SNOMED Code Problem Low back pain M54.5 Active 319421028 Problem Gastric pain R10.9 Active 872891153 Problem Irritable bowel syndrome with both constipation and diarrhea K58.2 Active 70338821 Problem Stress incontinence N39.3 Active 91058679 Problem Diabetes type 2, controlled E11.9 Active 95821973 Problem Diarrhea, unspecified type R19.7 Active 09234133 Problem Anxiety F41.9 Active 94305236 Problem Chronic constipation K59.00 Active 762365985 Problem GERD without esophagitis K21.9 Active 508788395 Problem Gastroparesis K31.84 Active 316690532 Problem Post traumatic stress disorder (PTSD) F43.10 Active 68075179 Problem Chronic diarrhea K52.9 Active 294013350 Problem Acquired hypothyroidism E03.9 Active 157939437 Problem Other chronic pain G89.29 Active 22954950 Problem Gastroparesis due to secondary diabetes E13.43 Active 2818541 Problem Diabetic polyneuropathy associated with type 2 diabetes mellitus E11.42 Active 89158852 Problem Pain in left knee M25.562 Active 369726953964996 Problem Pain in right knee M25.561 Active 297338379482253 Problem PTSD (post-traumatic stress disorder) F43.10 Active 67979566 Problem Constipation by delayed colonic transit K59.01 Active 60771447 Problem Diabetes type 2, uncontrolled E11.65 Active 146729944 Problem Anxiety about health F41.8 Active 644544380 Problem Left foot pain M79.672 Active 28848366 ALLERGIES Unknown Allergies SOCIAL HISTORY No smoking Hx information available PLAN OF CARE VITAL SIGNS MEDICATIONS Unknown Medications RESULTS Name Result Date Reference Range HEMOCCULT (IN HOUSE) 2016-08-16 RESULTS negative Control positive Lot # [id number] Exp date 01/26/19 HEMOCCULT (IN HOUSE)-Additional 2016-08-16 RESULTS negative Control positive Lot # [id number] Exp Date 01/26/19 PROCEDURES Procedure Date Ordered Related Diagnosis Body Site TEST FOR BLOOD, FECES Aug 17, 2016 IMMUNIZATIONS No Known Immunizations
--- OUTSIDE RECORDS SUMMARY | 2017-05-04 06:15 | XMS REPORT ---
Author Author DYLLAN GAMING [facility] Address [address] [place] [address] Care Team Providers Care Clinical Pharmacy Manager Name Role Phone DYLLAN GAMING Unavailable PROBLEMS Type Condition ICD9-CM Code [id number] Code Onset Dates Condition Status SNOMED Code Problem Low back pain M54.5 Active 396866000 Problem Gastric pain R10.9 Active 294280103 Problem Irritable bowel syndrome with both constipation and diarrhea K58.2 Active 02262526 Problem Stress incontinence N39.3 Active 35802900 Problem Diabetes type 2, controlled E11.9 Active 55800956 Problem Diarrhea, unspecified type R19.7 Active 60763437 Problem Anxiety F41.9 Active 30998228 Problem Chronic constipation K59.00 Active 030395732 Problem GERD without esophagitis K21.9 Active 182701785 Problem Gastroparesis K31.84 Active 620274139 Problem Post traumatic stress disorder (PTSD) F43.10 Active 96949774 Problem Chronic diarrhea K52.9 Active 410356508 Problem Acquired hypothyroidism E03.9 Active 670138685 Problem Other chronic pain G89.29 Active 78810936 Problem Gastroparesis due to secondary diabetes E13.43 Active 6640202 Problem Diabetic polyneuropathy associated with type 2 diabetes mellitus E11.42 Active 40045003 Problem Pain in left knee M25.562 Active 661927126065432 Problem Pain in right knee M25.561 Active 531672397165419 Problem PTSD (post-traumatic stress disorder) F43.10 Active 98207168 Problem Constipation by delayed colonic transit K59.01 Active 58374321 Problem Diabetes type 2, uncontrolled E11.65 Active 752958922 Problem Anxiety about health F41.8 Active 266639836 Problem Left foot pain M79.672 Active 59029186 ALLERGIES No Information SOCIAL HISTORY Never Assessed PLAN OF CARE VITAL SIGNS MEDICATIONS Medication Instructions Dosage Frequency Start Date End Date Duration Status Clonazepam 1 MG Orally Once a day 1.5 tabs in pm 24h 10 Sep, 2015 0 days Active Sucralfate 1 GM Orally Once a day at bedtime 1 tablet on an empty stomach 90 days Active RESULTS No Results PROCEDURES No Known procedures IMMUNIZATIONS No Known Immunizations MEDICAL (GENERAL) HISTORY Type Description Date Medical History sleep apnea Medical History irritable bowel syndrome Medical History acid reflux Medical History type II diabetes Medical History headache Medical History depression Medical History anxiety Medical History PTSD Medical History diabetic neuropathy Medical History gastroparesis ([place]) Medical History Mendez's esophagus Surgical History adenoidectomy 1978 Surgical History benign lesion removed from right foot Surgical History EGD and stretched esophagus 04/2016 Surgical History left knee surgery 11/22 Surgical History right knee arthroscopy 03/16/17 Hospitalization History surgeries
--- OUTSIDE RECORDS SUMMARY | 2017-05-04 06:15 | XMS REPORT ---
Author Author DAVID BUSTILLO Organization [facility] Address Unknown Phone Unavailable Care Team Providers Care Childcare Administrator Name Role Phone DAVID BUSTILLO Unavailable Unavailable PROBLEMS Type Condition ICD9-CM Code RGL49-ET Code Onset Dates Condition Status SNOMED Code Problem Low back pain M54.5 Active 974218163 Problem Irritable bowel syndrome with both constipation and diarrhea K58.2 Active 99134603 Problem Left foot pain M79.672 Active 33121219 Problem Diarrhea, unspecified type R19.7 Active 21880356 Problem Chronic constipation K59.00 Active 212495492 Problem Post traumatic stress disorder (PTSD) F43.10 Active 20931279 Problem Anxiety F41.9 Active 58839917 Problem Diabetes type 2, uncontrolled E11.65 Active 089716871 Problem Gastroparesis K31.84 Active 176834472 Problem Gastric pain R10.9 Active 912992946 Problem Chronic diarrhea K52.9 Active 796885830 Problem GERD without esophagitis K21.9 Active 462092728 Problem Diabetic polyneuropathy associated with type 2 diabetes mellitus E11.42 Active 96517839 Problem Acquired hypothyroidism E03.9 Active 566354201 Problem Diabetes type 2, controlled E11.9 Active 44851062 Problem Gastroparesis due to secondary diabetes E13.43 Active 5640948 Problem Pain in left knee M25.562 Active 650938238395903 Problem Pain in right knee M25.561 Active 402935311459843 Problem Other chronic pain G89.29 Active 58025386 Problem Anxiety about health F41.8 Active 716485721 Problem PTSD (post-traumatic stress disorder) F43.10 Active 69853713 Problem Constipation by delayed colonic transit K59.01 Active 36727742 ALLERGIES Unknown Allergies SOCIAL HISTORY No smoking Hx information available PLAN OF CARE Activity Details Follow Up Next available Reason: VITAL SIGNS MEDICATIONS Unknown Medications RESULTS No Results PROCEDURES Procedure Date Ordered Related Diagnosis Body Site Psychotherapy, patient &/family, 30 minutes, established patient Jul 16, 2016 IMMUNIZATIONS No Known Immunizations
--- OUTSIDE RECORDS SUMMARY | 2017-05-04 06:15 | XMS REPORT ---
Author Author DYLLAN GAMING [facility] Address [address] [place] [address] Care Team Providers Care Cost Control Analyst Name Role Phone DYLLAN GAMING Unavailable PROBLEMS Type Condition ICD9-CM Code [id number] Code Onset Dates Condition Status SNOMED Code Problem Low back pain M54.5 Active 647343643 Problem Gastric pain R10.9 Active 932227000 Problem Irritable bowel syndrome with both constipation and diarrhea K58.2 Active 29896708 Problem Stress incontinence N39.3 Active 95633528 Problem Diabetes type 2, controlled E11.9 Active 45192743 Problem Diarrhea, unspecified type R19.7 Active 54018719 Problem Anxiety F41.9 Active 97632148 Problem Chronic constipation K59.00 Active 156942009 Problem GERD without esophagitis K21.9 Active 514330388 Problem Gastroparesis K31.84 Active 247282761 Problem Post traumatic stress disorder (PTSD) F43.10 Active 75191084 Problem Chronic diarrhea K52.9 Active 380228299 Problem Acquired hypothyroidism E03.9 Active 930955888 Problem Other chronic pain G89.29 Active 57593415 Problem Gastroparesis due to secondary diabetes E13.43 Active 8984449 Problem Diabetic polyneuropathy associated with type 2 diabetes mellitus E11.42 Active 25176334 Problem Pain in left knee M25.562 Active 865611380692088 Problem Pain in right knee M25.561 Active 004169789816117 Problem PTSD (post-traumatic stress disorder) F43.10 Active 72982915 Problem Constipation by delayed colonic transit K59.01 Active 80400659 Problem Diabetes type 2, uncontrolled E11.65 Active 901477913 Problem Anxiety about health F41.8 Active 961359495 Problem Left foot pain M79.672 Active 17730303 ALLERGIES Substance Reaction Event Type Date Status Sulfamethoxazole-Trimethoprim swelling Drug Allergy Aug, Active SOCIAL HISTORY No smoking Hx information available PLAN OF CARE Activity Details Follow Up 2 - 3 Days Reason:if nausea and dizziness not inproved VITAL SIGNS Height 62 in 2016-08-10 Weight 254.0 lbs 2016-08-10 Temperature 98.4 degrees Fahrenheit 2016-08-10 Heart Rate 104 bpm 2016-08-10 Respiratory Rate 20 2016-08-10 BMI 46.45 kg/m2 2016-08-10 Blood pressure systolic 128 mmHg 2016-08-10 Blood pressure diastolic 78 mmHg 2016-08-10 MEDICATIONS Medication Instructions Dosage Frequency Start Date End Date Duration Status Fluticasone Propionate 50 MCG/ACT Nasally Once a day 1 spray in each nostril 24h 15 Nov, 2015 Active Prevacid 30 MG Orally Once a day 1 capsule 24h Active MiraLax Orally 2 times a day 1 packet mixed with 8 ounces of fluid 12h Active Lisinopril 2.5 MG Orally Once a day 1 tablet 24h Oct, Active Vitamin D-3 1000 UNIT Orally Once a day 1 capsule 24h Active Hydrochlorothiazide 12.5 MG Orally Once a day 1 capsule 24h Mar, Active Zofran 8 MG Orally Once a day as needed for nausea 1 tablet Aug, 0 days Active Fetzima 80 MG Orally Once a day 1 capsule 24h Jul, Active Clonazepam 1 MG Orally Once a day 1.5 tabs in pm 24h Sep, Active Lyrica 150 MG Orally 3 times a day 1 capsule 8h 24 Sep, 2015 Active Voltaren 1 % Transdermal 2 times a day as directed 12h Active Metformin HCl 850 MG Orally twice a day 1 tablet with a meal 12h Jul, 90 days Active HydrOXYzine HCl 50 MG Orally 3 times a day 1/2 in am 1/2 tab noon and 1 tablet at bedtime 8h Active Mobic 7.5 MG Orally twice a day 1 tablet 12h Active Linzess 145 MCG Orally Once a day (DX: chronic constipation/abd pain) 1 capsule May, Active Trulicity 1.5 MG/0.5ML Subcutaneous once weekly 0.5 ml Active BusPIRone HCl 10 MG TAKE ONE (1) TABLET BY MOUTH TWICE DAILY... Active Levothyroxine Sodium 25 MCG Orally Once a day 1 tablet 24h Jul, Active Sucralfate 1 GM Orally Once a day at bedtime 1 tablet on an empty stomach Active RESULTS No Results PROCEDURES Procedure Date Ordered Related Diagnosis Body Site Office Visit, Est Pt., Level 3 Aug 10, 2016 IMMUNIZATIONS No Known Immunizations
--- OUTSIDE RECORDS SUMMARY | 2017-05-04 06:15 | XMS REPORT ---
Author Author DYLLAN GAMING [facility] Address [address] [place] [address] Care Team Providers Care Diamond Die Maker Name Role Phone DYLLAN GAMING Unavailable PROBLEMS Type Condition ICD9-CM Code [id number] Code Onset Dates Condition Status SNOMED Code Problem Low back pain M54.5 Active 895679901 Problem Gastric pain R10.9 Active 403878667 Problem Irritable bowel syndrome with both constipation and diarrhea K58.2 Active 74965447 Problem Stress incontinence N39.3 Active 23759521 Problem Diabetes type 2, controlled E11.9 Active 98823125 Problem Diarrhea, unspecified type R19.7 Active 34748830 Problem Anxiety F41.9 Active 73954659 Problem Chronic constipation K59.00 Active 122438041 Problem GERD without esophagitis K21.9 Active 256925541 Problem Gastroparesis K31.84 Active 233426587 Problem Post traumatic stress disorder (PTSD) F43.10 Active 72702705 Problem Chronic diarrhea K52.9 Active 017355389 Problem Acquired hypothyroidism E03.9 Active 127765436 Problem Other chronic pain G89.29 Active 98124499 Problem Gastroparesis due to secondary diabetes E13.43 Active 6818584 Problem Diabetic polyneuropathy associated with type 2 diabetes mellitus E11.42 Active 47776299 Problem Pain in left knee M25.562 Active 851507891708778 Problem Pain in right knee M25.561 Active 190863395477672 Problem PTSD (post-traumatic stress disorder) F43.10 Active 40786310 Problem Constipation by delayed colonic transit K59.01 Active 72355360 Problem Diabetes type 2, uncontrolled E11.65 Active 556974883 Problem Anxiety about health F41.8 Active 780855807 Problem Left foot pain M79.672 Active 00100390 ALLERGIES Unknown Allergies SOCIAL HISTORY No smoking Hx information available PLAN OF CARE VITAL SIGNS MEDICATIONS Medication Instructions Dosage Frequency Start Date End Date Duration Status Lyrica 150 MG Orally 3 times a day 1 capsule 8h Sep, 0 days Active RESULTS No Results PROCEDURES No Known procedures IMMUNIZATIONS No Known Immunizations
--- OUTSIDE RECORDS SUMMARY | 2017-05-04 06:15 | XMS REPORT ---
Author Author DYLLAN GAMING [facility] Address [address] [place] [address] Care Team Providers Care Boat Carpenter Name Role Phone DYLLAN GAMING Unavailable PROBLEMS Type Condition ICD9-CM Code [id number] Code Onset Dates Condition Status SNOMED Code Problem Low back pain M54.5 Active 902626770 Problem Gastric pain R10.9 Active 597572349 Problem Irritable bowel syndrome with both constipation and diarrhea K58.2 Active 52963767 Problem Stress incontinence N39.3 Active 11383784 Problem Diabetes type 2, controlled E11.9 Active 79956017 Problem Diarrhea, unspecified type R19.7 Active 84113035 Problem Anxiety F41.9 Active 96492321 Problem Chronic constipation K59.00 Active 522304093 Problem GERD without esophagitis K21.9 Active 546841139 Problem Gastroparesis K31.84 Active 121151665 Problem Post traumatic stress disorder (PTSD) F43.10 Active 14545099 Problem Chronic diarrhea K52.9 Active 829652719 Problem Acquired hypothyroidism E03.9 Active 355858612 Problem Other chronic pain G89.29 Active 34878927 Problem Gastroparesis due to secondary diabetes E13.43 Active 6902114 Problem Diabetic polyneuropathy associated with type 2 diabetes mellitus E11.42 Active 38495536 Problem Pain in left knee M25.562 Active 469264472823064 Problem Pain in right knee M25.561 Active 819428471547762 Problem PTSD (post-traumatic stress disorder) F43.10 Active 41728236 Problem Constipation by delayed colonic transit K59.01 Active 94860503 Problem Diabetes type 2, uncontrolled E11.65 Active 836144774 Problem Anxiety about health F41.8 Active 770568297 Problem Left foot pain M79.672 Active 23542863 ALLERGIES Substance Reaction Event Type Date Status Sulfamethoxazole-Trimethoprim swelling Drug Allergy Aug, Active SOCIAL HISTORY No smoking Hx information available PLAN OF CARE Activity Details Follow Up pending labs and KUB Reason: VITAL SIGNS Height 62 in 2016-08-23 Weight 245.1 lbs 2016-08-23 Temperature 97.8 degrees Fahrenheit 2016-08-23 Heart Rate 90 bpm 2016-08-23 Respiratory Rate 20 2016-08-23 BMI 44.82 kg/m2 2016-08-23 Blood pressure systolic 124 mmHg 2016-08-23 Blood pressure diastolic 70 mmHg 2016-08-23 MEDICATIONS Medication Instructions Dosage Frequency Start Date End Date Duration Status Trulicity 1.5 MG/0.5ML Subcutaneous once weekly 0.5 ml 0 Active Prevacid 30 MG Orally Once a day 1 capsule 24h Active Fetzima 80 MG Orally Once a day 1 capsule 24h Jul, Active Vitamin D-3 1000 UNIT Orally Once a day 1 capsule 24h Active Lyrica 150 MG Orally 3 times a day 1 capsule 8h 24 Sep, 2015 Active BusPIRone HCl 10 MG TAKE ONE (1) TABLET BY MOUTH TWICE DAILY... Active HydrOXYzine HCl 50 MG Orally 3 times a day 1/2 in am 1/2 tab noon and 1 tablet at bedtime 8h Active MiraLax Orally 2 times a day 1 packet mixed with 8 ounces of fluid 12h Active Lisinopril 2.5 MG Orally Once a day 1 tablet 24h Oct, Active Mobic 7.5 MG Orally twice a day 1 tablet 12h Jun, Active Sucralfate 1 GM Orally Once a day at bedtime 1 tablet on an empty stomach Active Clonazepam 1 MG Orally Once a day 1.5 tabs in pm 24h Sep, 0 days Active Levothyroxine Sodium 25 MCG Orally Once a day 1 tablet 24h Jul, Active Zofran 8 MG Orally Once a day as needed for nausea 1 tablet Aug, Active Voltaren 1 % Transdermal 2 times a day as directed 12h Active Hydrochlorothiazide 12.5 MG Orally Once a day 1 capsule 24h Mar, Active Metformin HCl 850 MG Orally twice a day 1 tablet with a meal 12h Jul, Active Fluticasone Propionate 50 MCG/ACT Nasally Once a day 1 spray in each nostril 24h Nov, Active Linzess 145 MCG Orally Once a day (DX: chronic constipation/abd pain) 1 capsule May, Active RESULTS No Results PROCEDURES Procedure Date Ordered Related Diagnosis Body Site IMMUNOASSAY,INFECTIOUS AGENT Aug 23, 2016 Office Visit, Est Pt., Level 4 Aug 23, 2016 LAB NOT BILLED BY [facility] Aug 23, 2016 IMMUNIZATIONS No Known Immunizations
--- OUTSIDE RECORDS SUMMARY | 2017-05-04 06:16 | XMS REPORT ---
Author Author DYLLAN GAMING [facility] Address [address] [place] [address] Care Team Providers Care Collar Tailor Name Role Phone DYLLAN GAMING Unavailable PROBLEMS Type Condition ICD9-CM Code [id number] Code Onset Dates Condition Status SNOMED Code Problem Low back pain M54.5 Active 341669008 Problem Gastric pain R10.9 Active 969076701 Problem Irritable bowel syndrome with both constipation and diarrhea K58.2 Active 01814461 Problem Stress incontinence N39.3 Active 99844537 Problem Diabetes type 2, controlled E11.9 Active 31858418 Problem Diarrhea, unspecified type R19.7 Active 75554299 Problem Anxiety F41.9 Active 75566083 Problem Chronic constipation K59.00 Active 014624064 Problem GERD without esophagitis K21.9 Active 315079872 Problem Gastroparesis K31.84 Active 475426629 Problem Post traumatic stress disorder (PTSD) F43.10 Active 03581352 Problem Chronic diarrhea K52.9 Active 086723516 Problem Acquired hypothyroidism E03.9 Active 673609046 Problem Other chronic pain G89.29 Active 98335925 Problem Gastroparesis due to secondary diabetes E13.43 Active 8488441 Problem Diabetic polyneuropathy associated with type 2 diabetes mellitus E11.42 Active 32334780 Problem Pain in left knee M25.562 Active 021957103105770 Problem Pain in right knee M25.561 Active 247642782518318 Problem PTSD (post-traumatic stress disorder) F43.10 Active 47830084 Problem Constipation by delayed colonic transit K59.01 Active 90358362 Problem Diabetes type 2, uncontrolled E11.65 Active 310977009 Problem Anxiety about health F41.8 Active 064822842 Problem Left foot pain M79.672 Active 72098682 ALLERGIES Unknown Allergies SOCIAL HISTORY No smoking Hx information available PLAN OF CARE VITAL SIGNS MEDICATIONS Unknown Medications RESULTS No Results PROCEDURES No Known procedures IMMUNIZATIONS No Known Immunizations
--- OUTSIDE RECORDS SUMMARY | 2017-05-04 06:18 | XMS REPORT | Continuity of Care Document ---
Author Author [facility] Address Unknown Phone Unavailable [...] DISORDER 04/16/2008 698.9 PRURITUS NOS 04/16/2008 GILLESPIE DO MILLY K 296.90 MOOD DISORDER 04/16/2008 GILLESPIE DO MILLY K 698.9 PRURITUS NOS 04/16/2008 GILLESPIE DO MILLY K 296.90 MOOD DISORDER 04/16/2008 GILLESPIE DO MILLY K 698.9 PRURITUS NOS 04/16/2008 GILLESPIE DO MILLY K 296.90 MOOD DISORDER 04/16/2008 GILLESPIE DO MILLY K 698.9 PRURITUS NOS 04/16/2008 JENN GREEN DDS 296.90 MOOD DISORDER 04/16/2008 NORMA DDS, JENN M 698.9 PRURITUS NOS 04/16/2008 GILLESPIE DO, MILLY K 296.90 MOOD DISORDER 04/16/2008 GILLESPIE DO, MILLY K 698.9 PRURITUS NOS 04/16/2008 JEANNE DDS, JANELL D 296.90 MOOD DISORDER 04/16/2008 JEANNE DDS, JANELL D 698.9 PRURITUS NOS 04/16/2008 GILLESPIE DO, MILLY K 296.90 MOOD DISORDER 04/16/2008 GILLESPIE DO, MILLY K 698.9 PRURITUS NOS 04/16/2008 HELLWIG ADMINISTRATIVE SERVICES MANAGER, DAISY E 296.90 MOOD DISORDER 04/16/2008 HELLWIG ADMINISTRATIVE SERVICES MANAGER, DAISY E 698.9 PRURITUS NOS 04/16/2008 GILLESPIE DO, MILLY K 296.90 MOOD DISORDER 04/16/2008 GILLESPIE DO, MILLY K 698.9 PRURITUS NOS 04/16/2008 HELLWIG ADMINISTRATIVE SERVICES MANAGER, DAISY E 296.90 MOOD DISORDER 04/16/2008 HELLWIG ADMINISTRATIVE SERVICES MANAGER, DAISY E 698.9 PRURITUS NOS 04/16/2008 GILLESPIE DO, MILLY K 296.90 MOOD DISORDER 04/16/2008 GILLESPIE DO, MILLY K 698.9 PRURITUS NOS 04/16/2008 GILLESPIE DO, MILLY K 296.90 MOOD DISORDER 04/16/2008 GILLESPIE DO, MILLY K 698.9 PRURITUS NOS 04/16/2008 HELLWIG ADMINISTRATIVE SERVICES MANAGER, DAISY E 296.90 MOOD DISORDER 04/16/2008 HELLWIG ADMINISTRATIVE SERVICES MANAGER, DAISY E 698.9 PRURITUS NOS 04/16/2008 GILLESPIE DO, MILLY K 296.90 MOOD DISORDER 04/16/2008 GILLESPIE DO, MILLY K 698.9 PRURITUS NOS 04/16/2008 HELLWIG ADMINISTRATIVE SERVICES MANAGER, DAISY E 296.90 MOOD DISORDER 04/16/2008 HELLWIG ADMINISTRATIVE SERVICES MANAGER, DAISY E 698.9 PRURITUS NOS 04/16/2008 HELLWIG ADMINISTRATIVE SERVICES MANAGER, DAISY E 296.90 MOOD DISORDER 04/16/2008 HELLWIG ADMINISTRATIVE SERVICES MANAGER, DAISY E 698.9 PRURITUS NOS 04/16/2008 HELLWIG ADMINISTRATIVE SERVICES MANAGER, DAISY E 296.90 MOOD DISORDER 04/16/2008 HELLWIG ADMINISTRATIVE SERVICES MANAGER, DAISY E 698.9 PRURITUS NOS 04/16/2008 GILLESPIE [...] K 338.4 PAIN CHRONIC SYNDROME 05/15/2008 NORMA ZHOUS, JENN Dietrich 338.4 PAIN CHRONIC SYNDROME 05/15/2008 GILLESPIE DO, MILLY K 338.4 PAIN CHRONIC SYNDROME 05/15/2008 JEANNE ZHOUS, JANELL Thibodeaux 338.4 PAIN CHRONIC SYNDROME 05/15/2008 GILLESPIE DO, MILLY K 338.4 PAIN CHRONIC SYNDROME 05/15/2008 HELLWIG ADMINISTRATIVE SERVICES MANAGER, DAISY E 338.4 PAIN CHRONIC SYNDROME 05/15/2008 GILLESPIE DO, MILLY K 338.4 PAIN CHRONIC SYNDROME 05/15/2008 HELLWIG ADMINISTRATIVE SERVICES MANAGER, DAISY E 338.4 PAIN CHRONIC SYNDROME 05/15/2008 GILLESPIE DO, MILLY K 338.4 PAIN CHRONIC SYNDROME 05/15/2008 GILLESPIE DO, MILLY K 338.4 PAIN CHRONIC SYNDROME 05/15/2008 HELLWIG ADMINISTRATIVE SERVICES MANAGER, DAISY E 338.4 PAIN CHRONIC SYNDROME 05/15/2008 GILLESPIE DO, MILLY K 338.4 PAIN CHRONIC SYNDROME 05/15/2008 HELLWIG ADMINISTRATIVE SERVICES MANAGER, DAISY E 338.4 PAIN CHRONIC SYNDROME 05/15/2008 HELLWIG ADMINISTRATIVE SERVICES MANAGER, DAISY E 338.4 PAIN CHRONIC SYNDROME 05/15/2008 HELLWIG ADMINISTRATIVE SERVICES MANAGER, DAISY E 338.4 PAIN CHRONIC SYNDROME 05/15/2008 [...] MILLY K 309.81 AN PTSD 05/27/2008 HELLWIG ADMINISTRATIVE SERVICES MANAGER, DAISY E 309.81 AN PTSD 05/27/2008 GILLESPIE DO, MILLY K 309.81 AN PTSD 05/27/2008 HELLWIG ADMINISTRATIVE SERVICES MANAGER, DAISY E 309.81 AN PTSD 05/27/2008 GILLESPIE DO, MILLY K 309.81 AN PTSD 05/27/2008 GILLESPIE DO, MILLY K 309.81 AN PTSD 05/27/2008 HELLWIG ADMINISTRATIVE SERVICES MANAGER, DAISY E 309.81 AN PTSD 05/27/2008 GILLESPIE DO, MILLY K 309.81 AN PTSD 05/27/2008 HELLWIG ADMINISTRATIVE SERVICES MANAGER, DAISY E 309.81 AN PTSD 05/27/2008 HELLWIG ADMINISTRATIVE SERVICES MANAGER, DAISY E 309.81 AN PTSD 05/27/2008 HELLWIG ADMINISTRATIVE SERVICES MANAGER, DAISY E 309.81 AN PTSD 05/27/2008 GILLESPIE [...] 316 PF PSYCHIC FACTORS MED COND 06/27/2008 GILLESIPE DO, MILLY K V15.41 PERSONAL HISTORY OF [...] PSYCHIC FACTORS MED COND 06/27/2008 JOSE MIGUEL OBGGS MILLY K V15.41 PERSONAL HISTORY OF PHYSICAL [...] PF PSYCHIC FACTORS MED COND 06/27/2008 JEANNE DDS JANELL D V15.41 PERSONAL HISTORY OF PHYSICAL ABUSE 06/27/2008 JEANNE DDS, JANELL D V58.69 LONG-TERM (CURRENT) USE OF OTHER [...] (CURRENT) USE OF OTHER MEDICATIONS 06/27/2008 HELLWIG ADMINISTRATIVE SERVICES MANAGER, DAISY E 300.00 AN ANXIETY UNSPEC 06/27/2008 HELLWIG ADMINISTRATIVE SERVICES MANAGER, DAISY E 300.15 DS DISSOCIATIVE DIS NOS 06/27/2008 HELLWIG ADMINISTRATIVE SERVICES MANAGER, DAISY E 307.47 SI DYSSOMNIA NOS 06/27/2008 HELLWIG ADMINISTRATIVE SERVICES MANAGER, DAISY E 311 MO DEPRESSIVE DISORDER NOS 06/27/2008 HELLWIG ADMINISTRATIVE SERVICES MANAGER, DAISY E 316 PF PSYCHIC FACTORS MED COND 06/27/2008 HELLWIG ADMINISTRATIVE SERVICES MANAGER DAISY E V15.41 PERSONAL HISTORY OF PHYSICAL ABUSE 06/27/2008 HELLWIG ADMINISTRATIVE SERVICES MANAGER, DAISY E V58.69 LONG-TERM (CURRENT) USE OF [...] (CURRENT) USE OF OTHER MEDICATIONS 06/27/2008 HELLWIG ADMINISTRATIVE SERVICES MANAGER, DAISY E 300.00 AN ANXIETY UNSPEC 06/27/2008 HELLWIG ADMINISTRATIVE SERVICES MANAGER, DAISY E 300.15 DS DISSOCIATIVE DIS NOS 06/27/2008 HELLWIG ADMINISTRATIVE SERVICES MANAGER, DAISY E 307.47 SI DYSSOMNIA NOS 06/27/2008 HELLWIG ADMINISTRATIVE SERVICES MANAGER, DAISY E 311 MO DEPRESSIVE DISORDER NOS [...] APRNSIE E 300.00 AN ANXIETY UNSPEC 06/27/2008 TOMAS BENAVIDEZ DAISY E 300.15 DS DISSOCIATIVE DIS NOS 06/27/2008 TOMAS BENAVIDEZ DAISY E 307.47 SI DYSSOMNIA NOS 06/27/2008 TOMAS BENAVIDEZ DAISY E 311 MO DEPRESSIVE DISORDER NOS 06/27/2008 ENRIQUE MARIN APRNSIE E 316 PF PSYCHIC FACTORS MED COND 06/27/2008 TOMAS BENAVIDEZ DAISY E V15.41 PERSONAL HISTORY OF PHYSICAL [...] (CURRENT) USE OF OTHER MEDICATIONS 06/27/2008 HELLWIG ADMINISTRATIVE SERVICES MANAGER, DAISY E 300.00 AN ANXIETY UNSPEC 06/27/2008 HELLWIG ADMINISTRATIVE SERVICES MANAGER, DAISY E 300.15 DS DISSOCIATIVE DIS NOS 06/27/2008 HELLWIG ADMINISTRATIVE SERVICES MANAGER, DAISY E 307.47 SI DYSSOMNIA NOS 06/27/2008 HELLWIG ADMINISTRATIVE SERVICES MANAGER, DAISY E 311 MO DEPRESSIVE DISORDER NOS 06/27/2008 HELLWIG ADMINISTRATIVE SERVICES MANAGER, DAISY E 316 PF PSYCHIC FACTORS MED COND 06/27/2008 CAITLINLWIG ADMINISTRATIVE SERVICES MANAGER, DAISY E V15.41 PERSONAL HISTORY OF PHYSICAL ABUSE 06/27/2008 HELLWIG ADMINISTRATIVE SERVICES MANAGER, DAISY E V58.69 LONG-TERM (CURRENT) USE OF OTHER MEDICATIONS 06/27/2008 HELLWIG ADMINISTRATIVE SERVICES MANAGER, DAISY E 300.00 AN ANXIETY UNSPEC 06/27/2008 CAITLINLWIG ADMINISTRATIVE SERVICES MANAGER, DAISY E 300.15 DS DISSOCIATIVE DIS NOS 06/27/2008 CAITLINLWIG ADMINISTRATIVE SERVICES MANAGER, DAISY E 307.47 SI DYSSOMNIA NOS 06/27/2008 HELLWIG ADMINISTRATIVE SERVICES MANAGER, DAISY E 311 MO DEPRESSIVE DISORDER NOS 06/27/2008 HELLWIG ADMINISTRATIVE SERVICES MANAGER, DAISY E 316 PF PSYCHIC FACTORS MED COND 06/27/2008 CAITLINLWIG ADMINISTRATIVE SERVICES MANAGER, DAISY E V15.41 PERSONAL HISTORY OF PHYSICAL ABUSE 06/27/2008 HELLWIG ADMINISTRATIVE SERVICES MANAGER, DAISY E V58.69 LONG-TERM (CURRENT) USE OF OTHER MEDICATIONS 06/27/2008 HELLWIG ADMINISTRATIVE SERVICES MANAGER, DAISY E 300.00 AN ANXIETY UNSPEC 06/27/2008 HELLWIG ADMINISTRATIVE SERVICES MANAGER, DAISY E 300.15 DS DISSOCIATIVE DIS NOS 06/27/2008 CAITLINGAIL ADMINISTRATIVE SERVICES MANAGERENRIQUE BlumSIE E 307.47 SI DYSSOMNIA NOS 06/27/2008 RYAN MARIN APRNE E 311 MO DEPRESSIVE DISORDER NOS 06/27/2008 TOMAS ADMINISTRATIVE SERVICES MANAGERENRIQUE BlumSIE E 316 PF PSYCHIC FACTORS MED COND 06/27/2008 CAITLINRYAN REYNOLDS APRNE E V15.41 PERSONAL HISTORY OF PHYSICAL ABUSE [...] DO, MILLY K 724.5 BACKACHE UNSPECIFIED 07/29/2008 GILLEPSIE DO, MILLY K 788.30 INCONTINENCE ENURESOS/URINARY 07/29/2008 NORMA DDS, JENN M 110.5 DERMATOPHYTOSIS TINEA IMBRICATA 07/29/2008 NORMA DDS, JENN M 724.5 BACKACHE UNSPECIFIED 07/29/2008 NORMA DDS, JENN M 788.30 INCONTINENCE ENURESOS/URINARY 07/29/2008 GILLESPIE DO, MILLY [...] MILLY K 788.30 INCONTINENCE ENURESOS/URINARY 07/29/2008 HELLGUZMAN ADMINISTRATIVE SERVICES MANAGER DAISY E 110.5 DERMATOPHYTOSIS TINEA IMBRICATA 07/29/2008 CAITLINLGUZMAN ADMINISTRATIVE SERVICES MANAGERENRIQUE BlumSIE E 724.5 BACKACHE UNSPECIFIED 07/29/2008 CAITLINLENRIQUE HINDS APRNSIE E 788.30 INCONTINENCE ENURESOS/URINARY 07/29/2008 GILLESPIE DO, MILLY K 110.5 DERMATOPHYTOSIS TINEA IMBRICATA 07/29/2008 GILLESPIE DO, MILLY K 724.5 BACKACHE UNSPECIFIED 07/29/2008 GILLESPIE DO, MILLY K 788.30 INCONTINENCE ENURESOS/URINARY 07/29/2008 HELLGUZMAN ADMINISTRATIVE SERVICES MANAGERENRIQUE BlumSIE E 110.5 DERMATOPHYTOSIS TINEA IMBRICATA 07/29/2008 TOMAS ADMINISTRATIVE SERVICES MANAGER DAISY E 724.5 BACKACHE UNSPECIFIED 07/29/2008 HELLWIG ADMINISTRATIVE SERVICES MANAGER DAISY E 788.30 INCONTINENCE ENURESOS/URINARY 07/29/2008 GILLESPIE DO, MILLY K 110.5 DERMATOPHYTOSIS TINEA IMBRICATA 07/29/2008 GILLESPIE DO, MILLY K 724.5 BACKACHE UNSPECIFIED 07/29/2008 GILLESPIE DO, MILLY K 788.30 INCONTINENCE ENURESOS/URINARY 07/29/2008 GILLESPIE DO, MILLY K 110.5 DERMATOPHYTOSIS TINEA IMBRICATA 07/29/2008 GILLESPIE DO, MILLY K 724.5 BACKACHE UNSPECIFIED 07/29/2008 GILLESPIE DO, MILLY K 788.30 INCONTINENCE ENURESOS/URINARY 07/29/2008 HELLGUZMAN ADMINISTRATIVE SERVICES MANAGER DAISY E 110.5 DERMATOPHYTOSIS TINEA IMBRICATA 07/29/2008 CAITLINLGUZMAN ADMINISTRATIVE SERVICES MANAGER DAISY E 724.5 BACKACHE UNSPECIFIED 07/29/2008 HELLWIG ADMINISTRATIVE SERVICES MANAGER, DAISY E 788.30 INCONTINENCE ENURESOS/URINARY 07/29/2008 GILLESPIE DO, MILLY K 110.5 DERMATOPHYTOSIS TINEA IMBRICATA 07/29/2008 GILLESPIE DO, MILLY K 724.5 BACKACHE UNSPECIFIED 07/29/2008 GILLESPIE DO, MILLY K 788.30 INCONTINENCE ENURESOS/URINARY 07/29/2008 HELLWIG ADMINISTRATIVE SERVICES MANAGER, DAISY E 110.5 DERMATOPHYTOSIS TINEA IMBRICATA 07/29/2008 HELLWIG ADMINISTRATIVE SERVICES MANAGER, DAISY E 724.5 BACKACHE UNSPECIFIED 07/29/2008 HELLWIG ADMINISTRATIVE SERVICES MANAGER, DAISY E 788.30 INCONTINENCE ENURESOS/URINARY 07/29/2008 HELLWIG ADMINISTRATIVE SERVICES MANAGER, DAISY E 110.5 DERMATOPHYTOSIS TINEA IMBRICATA 07/29/2008 HELLWIG ADMINISTRATIVE SERVICES MANAGER, DAISY E 724.5 BACKACHE UNSPECIFIED 07/29/2008 HELLWIG ADMINISTRATIVE SERVICES MANAGER, DAISY E 788.30 INCONTINENCE ENURESOS/URINARY 07/29/2008 HELLWIG ADMINISTRATIVE SERVICES MANAGER, DAISY E 110.5 DERMATOPHYTOSIS TINEA IMBRICATA 07/29/2008 HELLWIG ADMINISTRATIVE SERVICES MANAGER, DAISY E 724.5 BACKACHE UNSPECIFIED 07/29/2008 HELLWIG ADMINISTRATIVE SERVICES MANAGER, DAISY E 788.30 INCONTINENCE ENURESOS/URINARY 07/29/2008 GILLESPIE [...] CHRONIC CUTANEOUS ULCER VENOUS STASIS 09/09/2008 JOSE COLEMAN MD 789.00 abdominal pain 09/09/2008 278.0 WEIGHT MANAGEMENT [...] BOGGS MILLY K 278.0 WEIGHT MANAGEMENT 09/09/2008 JOSE MIGUEL BOGGS MILLY K 278.01 OBESITY MORBID 09/09/2008 ENRIQUE [...] MILLY K 300.02 GENERALIZED ANXIETY DISORDER 09/09/2008 GLILESPIE DO, MILLY K 459.81 CHRONIC CUTANEOUS ULCER VENOUS STASIS 09/09/2008 GILLESPIE DO, MILLY K 789.00 abdominal pain 09/09/2008 JEANNE DDS, JANELL D 278.0 WEIGHT MANAGEMENT 09/09/2008 JEANNE DDS, JANELL D 278.01 OBESITY MORBID 09/09/2008 JEANNE DDS, JANELL D 300.02 GENERALIZED ANXIETY DISORDER 09/09/2008 JEANNE DDS, [...] DO, MILLY K 789.00 abdominal pain 09/09/2008 [facility] RYAN BENAVIDEZE E 278.0 WEIGHT MANAGEMENT 09/09/2008 [facility] ENRIQUE BENAVIDEZSIE E 278.01 OBESITY MORBID 09/09/2008 [facility] ENRIQUE BENAVIDEZSIE E 300.02 GENERALIZED ANXIETY DISORDER 09/09/2008 [facility] EN[facility] BENAVIDEZSIE E 459.81 CHRONIC CUTANEOUS ULCER VENOUS STASIS 09/09/2008 [facility] RYAN BENAVIDEZE E 789.00 abdominal pain 09/09/2008 GILLESPIE DO, MILLY K 278.0 WEIGHT MANAGEMENT 09/09/2008 GILLESPIE DO, MILLY K 278.01 OBESITY MORBID 09/09/2008 GILLESPIE DO, MILLY K 300.02 GENERALIZED ANXIETY DISORDER 09/09/2008 GILLESPIE DO, MILLY K 459.81 CHRONIC CUTANEOUS ULCER VENOUS STASIS 09/09/2008 GILLESPIE DO, MILLY K 789.00 abdominal pain 09/09/2008 [facility] RYAN BENAVIDEZE E 278.0 WEIGHT MANAGEMENT 09/09/2008 [facility] 278.01 OBESITY MORBID 09/09/2008 [facility] RYAN BENAVIDEZE E 300.02 GENERALIZED ANXIETY DISORDER 09/09/2008 [facility] RYAN BENAVIDEZE E 459.81 CHRONIC CUTANEOUS ULCER VENOUS STASIS 09/09/2008 [facility] RYAN BENAVIDEZE E 789.00 abdominal pain [...] DO, MILLY K 789.00 abdominal pain 09/09/2008 [facility] BlumSIE E 278.0 WEIGHT MANAGEMENT 09/09/2008 [facility] DAISY E 278.01 OBESITY MORBID 09/09/2008 [facility] ADMINISTRATIVE [facility] MANAGER, DAISY E 300.02 GENERALIZED ANXIETY DISORDER 09/09/2008 CAITLINWIG PRAMOD, DAISY E 459.81 CHRONIC CUTANEOUS ULCER VENOUS STASIS 09/09/2008 CAITLINLWIG ADMINISTRATIVE SERVICES MANAGER, DAISY E 789.00 abdominal pain 09/09/2008 GILLESPIE DO, MILLY K 278.0 WEIGHT MANAGEMENT 09/09/2008 GILLESPIE DO, MILLY K 278.01 OBESITY MORBID 09/09/2008 GILLESPIE DO, MILLY K 300.02 GENERALIZED ANXIETY DISORDER 09/09/2008 GILLESPIE DO, MILLY K 459.81 CHRONIC CUTANEOUS ULCER VENOUS STASIS 09/09/2008 GILLESPIE DO, MILLY K 789.00 abdominal pain 09/09/2008 [facility] ADMINISTRATIVE SERVICES MANAGER, DAISY E 278.0 WEIGHT MANAGEMENT 09/09/2008 [facility] ADMINISTRATIVE SERVICES MANAGER, DAISY E 278.01 OBESITY MORBID 09/09/2008 [facility] PRAMOD, DAISY E 300.02 GENERALIZED ANXIETY DISORDER 09/09/2008 [facility] ADMINISTRATIVE SERVICES MANAGER, DAISY E 459.81 CHRONIC CUTANEOUS ULCER VENOUS STASIS 09/09/2008 [facility] ADMINISTRATIVE SERVICES MANAGER, DAISY E 789.00 abdominal pain 09/09/2008 [facility] PRAMOD, DAISY E 278.0 WEIGHT MANAGEMENT 09/09/2008 [facility] ADMINISTRATIVE SERVICES MANAGER, DAISY E 278.01 OBESITY MORBID 09/09/2008 [facility] ADMINISTRATIVE SERVICES MANAGER, DAISY E 300.02 GENERALIZED ANXIETY DISORDER 09/09/2008 CAITLINWIG PRAMOD, DAISY E 459.81 CHRONIC CUTANEOUS ULCER VENOUS STASIS 09/09/2008 CAITLINWIG ADMINISTRATIVE SERVICES MANAGER, DAISY E 789.00 abdominal pain 09/09/2008 [facility] AD[facility]ISTRAT[facility] MANAGER, DAISY E 278.0 WEIGHT MANAGEMENT 09/09/2008 CAITLINWIG PRAMOD, DAISY E 278.01 OBESITY MORBID 09/09/2008 CAITLINWIG ADMINISTRATIVE SERVICES MANAGER, DAISY E 300.02 GENERALIZED ANXIETY DISORDER 09/09/2008 HELWIG ADMINISTRATIVE SERVICES MANAGER, DAISY E 459.81 CHRONIC CUTANEOUS ULCER VENOUS STASIS 09/09/2008 [facility] PR[facility], DAISY E 789.00 abdominal pain 09/09/2008 GILLESPIE [...] DO, MILLY K 786.2 cough 11/14/2008 HELLWIG ADMINISTRATIVE SERVICES MANAGER, DAISY E 278.00 OBESITY 11/14/2008 HELLWIG ADMINISTRATIVE SERVICES MANAGER, DAISY E 530.81 ESOPHAGEAL REFLUX 11/14/2008 HELLWIG ADMINISTRATIVE SERVICES MANAGER, DAISY E 786.2 cough 11/14/2008 GILLESPIE DO, MILLY K 278.00 OBESITY 11/14/2008 GILLESPIE DO, MILLY K 530.81 ESOPHAGEAL REFLUX 11/14/2008 GILLESPIE DO, MILLY K 786.2 cough 11/14/2008 HELLWIG ADMINISTRATIVE SERVICES MANAGER, DAISY E 278.00 OBESITY 11/14/2008 HELLWIG ADMINISTRATIVE SERVICES MANAGER, DAISY E 530.81 ESOPHAGEAL REFLUX 11/14/2008 HELLWIG ADMINISTRATIVE SERVICES MANAGER, DAISY E 786.2 cough 11/14/2008 GILLESPIE DO, MILLY K 278.00 OBESITY 11/14/2008 GILLESPIE DO, MILLY K 530.81 ESOPHAGEAL REFLUX 11/14/2008 GILLESPIE DO, MILLY K 786.2 cough 11/14/2008 GILLESPIE DO, MILLY K 278.00 OBESITY 11/14/2008 GILLESPIE DO, MILLY K 530.81 ESOPHAGEAL REFLUX 11/14/2008 GILLESPIE DO, MILLY K 786.2 cough 11/14/2008 HELLWIG ADMINISTRATIVE SERVICES MANAGER, DAISY E 278.00 OBESITY 11/14/2008 HELLWIG ADMINISTRATIVE SERVICES MANAGER, DAISY E 530.81 ESOPHAGEAL REFLUX 11/14/2008 HELLWIG ADMINISTRATIVE SERVICES MANAGER, DAISY E 786.2 cough 11/14/2008 GILLESPIE DO, MILLY K 278.00 OBESITY 11/14/2008 GILLESPIE DO, MILLY K 530.81 ESOPHAGEAL REFLUX 11/14/2008 GILLESPIE DO, MILLY K 786.2 cough 11/14/2008 HELLWIG ADMINISTRATIVE SERVICES MANAGER, DAISY E 278.00 OBESITY 11/14/2008 HELLWIG ADMINISTRATIVE SERVICES MANAGER, DAISY E 530.81 ESOPHAGEAL REFLUX 11/14/2008 HELLWIG ADMINISTRATIVE SERVICES MANAGER, DAISY E 786.2 cough 11/14/2008 HELLWIG ADMINISTRATIVE SERVICES MANAGER, DAISY E 278.00 OBESITY 11/14/2008 HELLWIG ADMINISTRATIVE SERVICES MANAGER, DAISY E 530.81 ESOPHAGEAL REFLUX 11/14/2008 HELLWIG ADMINISTRATIVE SERVICES MANAGER, DAISY E 786.2 cough 11/14/2008 HELLWIG ADMINISTRATIVE SERVICES MANAGER, DAISY E 278.00 OBESITY 11/14/2008 HELLWIG ADMINISTRATIVE SERVICES MANAGER, DAISY E 530.81 ESOPHAGEAL REFLUX 11/14/2008 HELLWIG ADMINISTRATIVE SERVICES MANAGER, DAISY E 786.2 cough 11/14/2008 GILLESPIE DO, [...] MILLY K 368.8 blurry vision 01/22/2009 HELLWIG ADMINISTRATIVE SERVICES MANAGER, DAISY E 368.8 blurry vision 01/22/2009 GILLESPIE DO, MILLY K 368.8 blurry vision 01/22/2009 HELLWIG ADMINISTRATIVE SERVICES MANAGER, DAISY E 368.8 blurry vision 01/22/2009 GILLESPIE DO, MILLY K 368.8 blurry vision 01/22/2009 GILLESPIE DO, MILLY K 368.8 blurry vision 01/22/2009 [facility] ADMINISTRATIVE SERVICES MANAGER, DAISY E 368.8 blurry vision 01/22/2009 IGLLESPIE DO, MILLY K 368.8 blurry vision 01/22/2009 [facility] ADMINISTRATIVE SERVICES MANAGER, DAISY E 368.8 blurry vision 01/22/2009 [facility] ADMINISTRATIVE SERVICES MANAGER, DAISY E 368.8 blurry vision 01/22/2009 [facility] ADMINISTRATIVE SERVICES MANAGER, DAISY E 368.8 blurry vision 01/22/2009 GILLESPIE [...] MILLY K 782.0 tingling (paresthesia) 04/09/2009 HELLWIG ADMINISTRATIVE SERVICES MANAGER, DAISY E 728.85 MUSCLE SPASM 04/09/2009 HELLWIG ADMINISTRATIVE SERVICES MANAGER DAISY E 782.0 tingling (paresthesia) 04/09/2009 GILLESPIE DO, MILLY K 728.85 MUSCLE SPASM 04/09/2009 GILLESPIE DO, MILLY K 782.0 tingling (paresthesia) 04/09/2009 HELLWIG ADMINISTRATIVE SERVICES MANAGER DAISY E 728.85 MUSCLE SPASM 04/09/2009 HELLWIG ADMINISTRATIVE SERVICES MANAGER DAISY E 782.0 tingling (paresthesia) 04/09/2009 GILLESPIE DO, MILLY K 728.85 MUSCLE SPASM 04/09/2009 GILLESPIE DO, MILLY K 782.0 tingling (paresthesia) 04/09/2009 GILLESPIE DO, MILLY K 728.85 MUSCLE SPASM 04/09/2009 GILLESPIE DO, MILLY K 782.0 tingling (paresthesia) 04/09/2009 HELLWIG ADMINISTRATIVE SERVICES MANAGER DAISY E 728.85 MUSCLE SPASM 04/09/2009 HELLWIG ADMINISTRATIVE SERVICES MANAGER, DAISY E 782.0 tingling (paresthesia) 04/09/2009 GILLESPIE DO, MILLY K 728.85 MUSCLE SPASM 04/09/2009 GILLESPIE DO, MILLY K 782.0 TINGLING (PARESTHESIA) 04/09/2009 HELLWIG ADMINISTRATIVE SERVICES MANAGER, DAISY E 728.85 MUSCLE SPASM 04/09/2009 HELLWIG ADMINISTRATIVE SERVICES MANAGER DAISY E 782.0 TINGLING (PARESTHESIA) 04/09/2009 TOMAS ADMINISTRATIVE SERVICES MANAGER, DAISY E 728.85 MUSCLE SPASM 04/09/2009 HELGAIL BENAVIDEZ DAISY E 782.0 TINGLING (PARESTHESIA) 04/09/2009 TOMAS IBARRAN DAISY E 728.85 MUSCLE SPASM 04/09/2009 TOMAS BENAVIDEZ DAISY E 782.0 TINGLING (PARESTHESIA) 04/09/2009 GILLESPIE DO, MILLY K 728.85 MUSCLE [...] TYPE 2 - UNCOMPLICATED, UNCONTROLLED 04/25/2009 HELLGUZMAN ADMINISTRATIVE SERVICES MANAGER DAISY E 250.02 DIABETES MELLITUS TYPE 2 - UNCOMPLICATED, UNCONTROLLED 04/25/2009 GILLESPIE DO, MILLY K 250.02 DIABETES MELLITUS TYPE 2 - UNCOMPLICATED, UNCONTROLLED 04/25/2009 TOMAS ADMINISTRATIVE SERVICES MANAGER, DAISY E 250.02 DIABETES MELLITUS TYPE 2 - UNCOMPLICATED, UNCONTROLLED 04/25/2009 JOANAWIG ADMINISTRATIVE SERVICES MANAGER, DAISY E 250.02 DIABETES MELLITUS TYPE 2 - UNCOMPLICATED, UNCONTROLLED 04/25/2009 TOMAS ADMINISTRATIVE SERVICES MANAGER, DAISY E 250.02 DIABETES MELLITUS TYPE 2 [...] K 327.20 ORGANIC SLEEP APNEA UNSPECIFIED 05/20/2010 FLAVIO GREEN DDSASHA M 327.20 ORGANIC SLEEP APNEA UNSPECIFIED 05/20/2010 GILLESPIE DO, MILLY K 327.20 ORGANIC SLEEP APNEA UNSPECIFIED 05/20/2010 JEANNE BABIN, JANELL Thibodeaux 327.20 ORGANIC SLEEP APNEA UNSPECIFIED 05/20/2010 GILLESPIE DO, MLILY K 327.20 ORGANIC SLEEP APNEA UNSPECIFIED 05/20/2010 HELLWIG ADMINISTRATIVE SERVICES MANAGER, DAISY E 327.20 ORGANIC SLEEP APNEA UNSPECIFIED 05/20/2010 GILLESPIE DO, MILLY K 327.20 ORGANIC SLEEP APNEA UNSPECIFIED 05/20/2010 HELLWIG ADMINISTRATIVE SERVICES MANAGER, DAISY E 327.20 ORGANIC SLEEP APNEA UNSPECIFIED 05/20/2010 GILLESPIE DO, MILLY K 327.20 ORGANIC SLEEP APNEA UNSPECIFIED 05/20/2010 GILLESPIE DO, MILLY K 327.20 ORGANIC SLEEP APNEA UNSPECIFIED 05/20/2010 HELLWIG ADMINISTRATIVE SERVICES MANAGER, DAISY E 327.20 ORGANIC SLEEP APNEA UNSPECIFIED 05/20/2010 GILLESPIE DO, MILLY K 327.20 ORGANIC SLEEP APNEA UNSPECIFIED 05/20/2010 HELLWIG ADMINISTRATIVE SERVICES MANAGER, DAISY E 327.20 ORGANIC SLEEP APNEA UNSPECIFIED 05/20/2010 HELLWIG ADMINISTRATIVE SERVICES MANAGER, DAISY E 327.20 ORGANIC SLEEP APNEA UNSPECIFIED 05/20/2010 HELLWIG ADMINISTRATIVE SERVICES MANAGER, DAISY E 327.20 ORGANIC SLEEP APNEA UNSPECIFIED [...] K 564.1 IRRITABLE BOWEL SYNDROME 06/17/2010 TOMAS BENAVIDEZ, DAISY E 564.1 IRRITABLE BOWEL SYNDROME 06/17/2010 [...] DAISY E 564.1 IRRITABLE BOWEL SYNDROME 06/17/2010 [facility] E 564.1 IRRITABLE BOWEL SYNDROME [...] 780.52 insomnia 07/19/2012 787.1 heartburn 07/19/2012 GILLESPIE DO MILLY K 780.52 insomnia 07/19/2012 GILLESPIE DO, MILLY K 787.1 heartburn 07/19/2012 GILLESPIE DO MILLY K 780.52 insomnia 07/19/2012 GILLESPIE DO MILLY K 787.1 heartburn 07/19/2012 GILLESPIE DO, [...] DO, MILLY K 787.1 heartburn 07/19/2012 HELLWIG PRAMOD DAISY E 780.52 insomnia 07/19/2012 HELLWIG ADMINISTRATIVE SERVICES MANAGER, DAISY E 787.1 heartburn 07/19/2012 GILLESPIE DO, MILLY K 780.52 insomnia 07/19/2012 GILLESPIE DO, MILLY K 787.1 heartburn 07/19/2012 HELLWIG ADMINISTRATIVE SERVICES MANAGER, DAISY E 780.52 insomnia 07/19/2012 HELLWIG ADMINISTRATIVE SERVICES MANAGER, DAISY E 787.1 heartburn 07/19/2012 GILLESPIE DO, MILLY K 780.52 insomnia 07/19/2012 GILLESPIE DO, MILLY K 787.1 heartburn 07/19/2012 GILLESPIE DO, MILLY K 780.52 insomnia 07/19/2012 GILLESPIE DO, MILLY K 787.1 heartburn 07/19/2012 HELLWIG ADMINISTRATIVE SERVICES MANAGER, DAISY E 780.52 insomnia 07/19/2012 HELLWIG ADMINISTRATIVE SERVICES MANAGER, DAISY E 787.1 heartburn 07/19/2012 GILLESPIE DO, MILYL K 780.52 insomnia 07/19/2012 GILLESPIE DO, MILLY K 787.1 HEARTBURN 07/19/2012 HELLWIG ADMINISTRATIVE SERVICES MANAGER, DAISY E 780.52 insomnia 07/19/2012 HELLWIG ADMINISTRATIVE SERVICES MANAGER DAISY E 787.1 HEARTBURN 07/19/2012 HELLWIG ADMINISTRATIVE SERVICES MANAGER, DAISY E 780.52 insomnia 07/19/2012 HELLWIG ADMINISTRATIVE SERVICES MANAGER DAISY E 787.1 HEARTBURN 07/19/2012 HELLWIG ADMINISTRATIVE SERVICES MANAGER, DAISY E 780.52 insomnia 07/19/2012 HELLWIG ADMINISTRATIVE SERVICES MANAGER, DAISY E 787.1 HEARTBURN 07/19/2012 GILLESPIE DO, [...] DO, MILLY K 703.0 INGROWING NAIL 12/20/2012 [facility] DAISY E 703.0 INGROWING NAIL 12/20/2012 GILLESPIE DO, MILLY K 703.0 INGROWING NAIL 12/20/2012 HELWIG ADMINISTRATIVE SERVICES MANAGER, DAISY E 703.0 INGROWING NAIL 12/20/2012 GILLESPIE DO, MILLY K 703.0 INGROWING NAIL 12/20/2012 GILLESPIE DO, MILLY K 703.0 INGROWING NAIL 12/20/2012 HELWIG ADMINISTRATIVE SERVICES MANAGER, DAISY E 703.0 INGROWING NAIL 12/20/2012 GILLESPIE DO, MILLY K 703.0 INGROWING NAIL 12/20/2012 HELWIG ADMINISTRATIVE SERVICES MANAGER, DAISY E 703.0 INGROWING NAIL 12/20/2012 [facility], DAISY E 703.0 INGROWING NAIL 12/20/2012 [facility], DAISY E 703.0 INGROWING NAIL 12/20/2012 GILLESPIE DO, MILLY K 703.0 INGROWING NAIL 01/11/2013 V03.82 [id number] (PNEUMOVAX) DX 01/11/2013 V03.82 PPV23 (PNEUMOVAX) DX 01/11/2013 V03.82 PPV23 (PNEUMOVAX) DX 01/11/2013 V03.82 PPV23 (PNEUMOVAX) DX 01/11/2013 GILLESPIE DO, MILLY K V03.82 PPV23 (PNEUMOVAX) DX 01/11/2013 GLILESPIE DO, MILLY K V03.82 PPV23 (PNEUMOVAX) DX 01/11/2013 GILLESPIE DO, MILLY K V03.82 PPV23 (PNEUMOVAX) DX 01/11/2013 NORMA DDS, JENN Dietrich V03.82 PPV23 (PNEUMOVAX) DX 01/11/2013 GILLESPIE DO, MILLY K V03.82 PPV23 (PNEUMOVAX) DX 01/11/2013 JEANNE DDS, JANELL Thibodeaux V03.82 PPV23 (PNEUMOVAX) DX 01/11/2013 GILLESPIE DO, MILLY K V03.82 PPV23 (PNEUMOVAX) DX 01/11/2013 [facility] E V03.82 PPV23 (PNEUMOVAX) DX 01/11/2013 GILLESPIE DO, MILLY K V03.82 PPV23 (PNEUMOVAX) DX 01/11/2013 RYAN MARIN APRNE E V03.82 PPV23 (PNEUMOVAX) DX 01/11/2013 GILLESPIE DO, MILLY K V03.82 PPV23 (PNEUMOVAX) DX 01/11/2013 GILLESPIE DO, MILLY K V03.82 PPV23 (PNEUMOVAX) DX 01/11/2013 [facility] REYN[facility] APRNSIE E V03.82 PPV23 (PNEUMOVAX) DX 01/11/2013 GILLESPIE DO, MILLY K V03.82 PPV23 (PNEUMOVAX) DX 01/11/2013 RYAN MARIN APRNE E V03.82 PPV23 (PNEUMOVAX) DX 01/11/2013 RYAN MARIN APRNE E V03.82 PPV23 (PNEUMOVAX) DX 01/11/2013 [facility] APRNE E V03.82 PPV23 (PNEUMOVAX) DX [...] MILLY K 790.6 ABNORMAL BLOOD CHEMISTRY 01/25/2013 JEANNE ZHOUS, JANELL Thibodeaux 790.6 ABNORMAL BLOOD CHEMISTRY 01/25/2013 GILLESPIE DO, MILLY K 790.6 ABNORMAL BLOOD CHEMISTRY 01/25/2013 RYAN MARIN APRNE E 790.6 ABNORMAL BLOOD CHEMISTRY 01/25/2013 GILLESPIE [...] APRNSIE E 790.6 ABNORMAL BLOOD CHEMISTRY 01/25/2013 ENRIQUE MARIN APRNSIE E 790.6 ABNORMAL BLOOD CHEMISTRY 01/25/2013 ENRIQUE MARIN APRNSIE E 790.6 ABNORMAL BLOOD CHEMISTRY 01/25/2013 GILLESPIE DO, MILLY K 790.6 ABNORMAL BLOOD CHEMISTRY 02/01/2013 799.22 Mood Irritable 02/01/2013 799.22 Mood Irritable 02/01/2013 GILLESPIE DO, MILLY K 799.22 Mood Irritable 02/01/2013 GILLESPIE DO, MILLY K 799.22 Mood Irritable 02/01/2013 GILLESPIE DO, MILLY K 799.22 Mood Irritable 02/01/2013 NORMA ABELARDOS, JENN M 799.22 Mood Irritable 02/01/2013 GILLESPIE DO, MILLY K 799.22 Mood Irritable 02/01/2013 JEANNE DDS, JANELL Thibodeaux 799.22 Mood Irritable 02/01/2013 GILLESPIE DO, MILLY K 799.22 Mood Irritable 02/01/2013 [employer]LL[employer]MAN ADMINISTRATIVE SERVICES MANAGER DAISY E 799.22 Mood Irritable 02/01/2013 GILLESPIE DO, MILLY K 799.22 Mood Irritable 02/01/2013 HELLWIG ADMINISTRATIVE SERVICES MANAGER DAISY E 799.22 Mood Irritable 02/01/2013 GILLESPIE DO, MILLY K 799.22 Mood Irritable 02/01/2013 GILLESPIE DO, MILLY K 799.22 Mood Irritable 02/01/2013 HELLGUZMAN BENAVIDEZ DAISY E 799.22 Mood Irritable 02/01/2013 GILLESPIE DO, MILLY K 799.22 MOOD IRRITABLE 02/01/2013 [facility] DA[facility] E 799.22 MOOD IRRITABLE 02/01/2013 [facility] DAISY E 799.22 MOOD IRRITABLE 02/01/2013 [facility] ADMINISTRATIVE SERVICES MANAGER DAISY E 799.22 MOOD IRRITABLE 02/01/2013 GILLESPIE [...] DO, MILLY K V04.81 FLU SHOT 04/27/2013 [facility] BE[facility]VIDE[facility] DAISY E V04.81 FLU SHOT 04/27/2013 GILLESPIE DO, MILLY K V04.81 FLU SHOT 04/27/2013 HELLGUZMAN ADMINISTRATIVE SERVICES MANAGER, DAISY E V04.81 FLU SHOT 04/27/2013 GILLESPIE DO, MILLY K V04.81 FLU SHOT 04/27/2013 GILLESPIE DO, MILLY K V04.81 FLU SHOT 04/27/2013 HELLWIG ADMINISTRATIVE SERVICES MANAGER, DAISY E V04.81 FLU SHOT 04/27/2013 GILLESPIE DO, MILLY K V04.81 FLU SHOT 04/27/2013 HELLWIG ADMINISTRATIVE SERVICES MANAGER, DAISY E V04.81 FLU SHOT 04/27/2013 HELLWIG ADMINISTRATIVE SERVICES MANAGER, DAISY E V04.81 FLU SHOT 04/27/2013 HELLWIG ADMINISTRATIVE SERVICES MANAGER, DAISY E V04.81 FLU SHOT 04/27/2013 GILLESPIE [...] 355.9 MONONEURITIS OF UNSPECIFIED SITE 08/03/2013 HELLWIG ADMINISTRATIVE SERVICES MANAGER, DAISY E 355.9 MONONEURITIS OF UNSPECIFIED SITE 08/03/2013 GILLESPIE DO, MILLY K 355.9 MONONEURITIS OF UNSPECIFIED SITE 08/03/2013 HELLWIG ADMINISTRATIVE SERVICES MANAGER, DAISY E 355.9 MONONEURITIS OF UNSPECIFIED SITE 08/03/2013 GILLESPIE DO, MILLY K 355.9 MONONEURITIS OF UNSPECIFIED SITE 08/03/2013 GILLESPIE DO, MILLY K 355.9 MONONEURITIS OF UNSPECIFIED SITE 08/03/2013 HELLWIG ADMINISTRATIVE SERVICES MANAGER DAISY E 355.9 MONONEURITIS OF UNSPECIFIED SITE 08/03/2013 GILLESPIE DO, MILLY K 355.9 MONONEURITIS OF UNSPECIFIED SITE 08/03/2013 HELLWIG ADMINISTRATIVE SERVICES MANAGER DAISY E 355.9 MONONEURITIS OF UNSPECIFIED SITE 08/03/2013 HELLWIG ADMINISTRATIVE SERVICES MANAGER DAISY E 355.9 MONONEURITIS OF UNSPECIFIED SITE 08/03/2013 HELLWIG ADMINISTRATIVE SERVICES MANAGER, DAISY E 355.9 MONONEURITIS OF UNSPECIFIED SITE 08/03/2013 GILLESPIE DO, MILLY K 355.9 MONONEURITIS OF UNSPECIFIED SITE 09/21/2013 GILLESPIE DO, MILLY K 110.1 ONYCHOMYCOSIS 09/21/2013 GILLESPIE DO, MILLY K 356.9 NEUROPATHY 09/21/2013 GILLESPIE DO, MILLY K 703.8 ONYCHOCRYPTOSIS 09/21/2013 JEANNE DDS, JANELL Thibodeaux 110.1 ONYCHOMYCOSIS 09/21/2013 JEANNE DDS, JANELL D 356.9 NEUROPATHY 09/21/2013 JEANNE DDS, JANELL Thibodeaux [...] TOMAS BENAVIDEZ DAISY E 110.1 ONYCHOMYCOSIS 09/21/2013 TOMAS BENAVIDEZ DAISY E 356.9 NEUROPATHY 09/21/2013 HELLWIG ADMINISTRATIVE SERVICES MANAGER, DAISY E 703.8 ONYCHOCRYPTOSIS 09/21/2013 GILLESPIE DO, MILLY K 110.1 ONYCHOMYCOSIS 09/21/2013 GILLESPIE DO, MILLY K 356.9 NEUROPATHY 09/21/2013 GILLESPIE DO, MILLY K 703.8 ONYCHOCRYPTOSIS 09/21/2013 HELWIG ADMINISTRATIVE SERVICES MANAGER, DAISY E 110.1 ONYCHOMYCOSIS 09/21/2013 HELWIG ADMINISTRATIVE SERVICES MANAGER, DAISY E 356.9 NEUROPATHY 09/21/2013 HELWIG ADMINISTRATIVE SERVICES MANAGER, DAISY E 703.8 ONYCHOCRYPTOSIS 09/21/2013 [facility] ADMINISTRATIVE SERVICES MANAGER, DAISY E 110.1 ONYCHOMYCOSIS 09/21/2013 HELWIG ADMINISTRATIVE SERVICES MANAGER, DAISY E 356.9 NEUROPATHY 09/21/2013 [facility] MANAGER, DAISY E 703.8 ONYCHOCRYPTOSIS 09/21/2013 [facility] ADMINISTRATIVE SERVICES MANAGER, DAISY E 110.1 ONYCHOMYCOSIS 09/21/2013 [facility] ADMINISTRATIVE SERVICES MANAGER, DAISY E 356.9 NEUROPATHY 09/21/2013 [facility] AD[facility]IST[facility]AT[facility] MANAGER, DAISY E 703.8 ONYCHOCRYPTOSIS 09/21/2013 GILLESPIE DO, MILLY K 110.1 ONYCHOMYCOSIS 09/21/2013 GILLESPIE DO, MILLY K 356.9 NEUROPATHY 09/21/2013 GILLESPIE DO, MILLY K 703.8 ONYCHOCRYPTOSIS 04/25/2014 GILLESPIE DO, MILLY K V06.1 TDAP DX 04/25/2014 GILLESPIE DO, MILLY K V06.1 TDAP DX 04/25/2014 [facility] AD[facility] MANAGER, DAISY E V06.1 TDAP DX 04/25/2014 GILLESPIE DO, MILLY K V06.1 TDAP DX 04/25/2014 [facility] ADMINISTRAT[facility] MANAGER, DAISY E V06.1 TDAP DX 04/25/2014 [facility] ADMINISTRAT[facility] MANAGER, DAISY E V06.1 TDAP DX 04/25/2014 [facility] AD[facility] MANAGER, DAISY E V06.1 TDAP DX 04/25/2014 GILLESPIE DO, MILLY K V06.1 TDAP DX 08/09/2014 GILLESPIE DO, MILLY K 564.00 UNSPECIFIED CONSTIPATION 08/09/2014 DAISY MARIN APRN E 564.00 UNSPECIFIED CONSTIPATION 08/09/2014 DAISY MARIN APRN E 564.00 UNSPECIFIED CONSTIPATION 08/09/2014 RYAN MARIN APRNE E 564.00 UNSPECIFIED CONSTIPATION 08/09/2014 MILLY GILLESPIE DO K 564.00 UNSPECIFIED CONSTIPATION 08/21/2014 ENRIQUE MARIN APRNSIE E V05.3 HEP B (ADULT) DX 08/21/2014 CAITLINGAIL ADMINISTRATIVE SERVICES MANAGER, DAISY E V05.3 HEP B (ADULT) DX 08/21/2014 TOMAS ADMINISTRATIVE SERVICES MANAGER, DAISY E V05.3 HEP B (ADULT) DX [...] Procedures Code [place] [address] A1C (IN-HOUSE) 67220 MICRO ALBUMIN-IN HOUSE 07/19/2012 23312 MICROALBUMIN 07/2012 15393 NAIL REMOVAL PERMANENT (PARTIAL OR COMPLETE) 12/29/2012 87750 ROUTINE VENIPUNCTURE 01/11/2013 23251 A1C (IN-HOUSE) 04505 CMP 01/11/2013 [id number] GFR CALC (RESULT ONLY) 01/11/2013 98417 CBC 01/11/2013 92429 TSH 01/11/2013 81452 A1C (IN-HOUSE) PODIATRY BUNNY FELIX 08/03/2013 63774 A1C (IN-HOUSE) 78033 DEBRIDE NAIL 1-5 09/21/2013 40311 A1C (IN-HOUSE) 53323 MICRO ALBUMIN-IN HOUSE 01/02/2014 04262 DEBRIDE NAIL 1-5 01/25/2014 09379 ROUTINE VENIPUNCTURE 04/25/2014 25599 THERAPUTIC INJ SQ/IM 04/25/2014 56708 A1C (IN-HOUSE) 43684 CMP 04/25/2014 48206 LIPID PANEL 04/25 72293 TSH 04/25/2014 75185 CBC 04/25/2014 22662 A1C (IN-HOUSE) 52762 A1C (IN-HOUSE) 28703 H PYLORI (IN-HOUSE) 11/11/[address] EXTREMITY, LOWER, RIGHT, W/O CONTRAST 11/11/2014 [place] 01/2015 Physical Physical Therapy 11/11/2014 86742 XRAY FOOT LEFT COMP MIN 3 VIEWS 11/12/2014 Results Encounters ACCT No. Visit Date/Time Discharge Status Pt. Type Provider Facility Loc./Unit Complaint [id number] 11/11/2014 15:58:00 11/11/2014 23: 59:59 CLS Outpatient MILLY GILLESPIE DO [id number] 10/07/2014 17:23:00 10/07/2014 23: 59:59 CLS Outpatient DAISY MARIN APRN [id number] 08/21/2014 15:19:00 08/21/2014 23: 59:59 CLS Outpatient DAISY MARIN APRN [id number] 08/09/2014 10:10:00 08/09/2014 23: 59:59 CLS Outpatient MILLY GILLESPIE DO [id number] 08/09/2014 10:10:00 08/09/2014 23: 59:59 CLS Outpatient DAISY MARIN APRN [id number] 05/10/2014 10:11:00 05/10/2014 23: 59:59 CLS Outpatient MILLY GILLESPIE DO [id number] 04/25/2014 13:19:00 04/25/2014 23: 59:59 CLS Outpatient DAISY MARIN APRN [id number] 04/25/2014 13:19:00 04/25/2014 23: 59:59 CLS Outpatient GILLESPIE DOMILLY [id number] 02/04/2014 08:31:00 02/04/2014 23: 59:59 CLS Outpatient DAISY MARIN APRN [id number] 01/25/2014 09:59:00 01/25/2014 23: 59:59 CLS Outpatient JOSE MIGUEL DOMILLY [id number] 01/02/2014 10:42:00 01/02/2014 23: 59:59 CLS Outpatient GILLESPIE DOMILLY [id number] 01/02/2014 10:42:00 01/02/2014 23: 59:59 CLS Outpatient DAISY MARIN APRN [id number] 09/21/2013 09:39:00 09/21/2013 23: 59:59 CLS Outpatient JOSE MIGUEL DOMILLY [id number] 08/22/2013 13:27:00 08/22/2013 23: 59:59 CLS Outpatient NORMA DDS, JENN Dietrich [id number] 08/22/2013 13:27:00 08/22/2013 23: 59:59 CLS Outpatient JEANNE DDS, JANELL Thibodeaux [id number] 08/03/2013 10:46:00 08/03/2013 23: 59:59 CLS Outpatient MILLY GILLESPIE DO [id number] 04/27/2013 13:19:00 04/27/2013 23: 59:59 CLS Outpatient JOSE MIGUEL DOMILLY [id number] 04/27/2013 13:19:00 04/27/2013 23: 59:59 CLS Outpatient JOSE MIGUEL DOMILLY [id number] 07/19/2012 09:56:00 07/19/2012 23: 59:59 [place] [id number] 12/30/2010 12:29:00 12/30/2010 23: 59:59 CLS Outpatient [id number] 04/06/2013 13:21:00 Document Registration [id number] 02/01/2013 13:15:00 Document Registration [id number] 01/25/2013 13:32:00 Document Registration [id number] 01/11/2013 09:17:00 Document Registration [id number] 12/20/2012 14:25:00 Document Registration [id number] 07/19/2012 09:56:00 Document Registration
[2017-05-04] MEDS ORDERED: ceFAZolin 2 GM/50 ML NS 50 ML ONE (06:23)
[2017-05-04] MEDS ORDERED: ROCURONIUM 50 MG/5 ML (ZEMURON) VIAL IV ONE (06:36)
[2017-05-04] MEDS ORDERED: MIDAZOLAM 2 MG/2 ML (VERSED) VIAL ONE (06:36)
[2017-05-04] MEDS ORDERED: LIDOCAINE PF 2% 5 ML (XYLOCAINE) VIAL ONE (06:36)
[2017-05-04] MEDS ORDERED: SUCCINYLCHOLINE INJ 100 MG/5 ML SYR ONE (06:36)
[2017-05-04] MEDS ORDERED: proPOfol 200 MG/20 ML (DIPRIVAN) VIAL IV ONE (06:36)
[2017-05-04] MEDS ORDERED: ONDANSETRON 4 MG/2 ML (SDV) Z0FRAN ONE ×2 (06:36→06:46)
[2017-05-04] MEDS ORDERED: fentaNYL INJECTION 100 MCG/2 ML AMP ONE ×3 (06:36→09:08)
[2017-05-04] MEDS ORDERED: LACTATED RINGERS 1,000 ML IV ONE (06:36)
[2017-05-04 06:42] VITALS: BP 115/77
[2017-05-04] MEDS ORDERED: LACTATED RINGERS 1,000 ML IV PRN (06:43)
[2017-05-04] MEDS ORDERED: ROPIVACAINE 5MG/ML 30ML VIAL ONE (06:49)
[2017-05-04] MEDS ORDERED: ONDANSETRON 4 MG/2 ML (SDV) Z0FRAN IVP ONE (07:00)
[2017-05-04] MEDS ORDERED: LORA-404 PO (07:10)
[2017-05-04] MEDS ORDERED: LINA145C PO (07:10)
[2017-05-04] MEDS ORDERED: FESO8TAB PO (07:10)
[2017-05-04] MEDS ORDERED: CHOL10003 PO (07:10)
[2017-05-04] MEDS ORDERED: FLUT15.88 NS (07:10)
[2017-05-04] MEDS ORDERED: morphine PF (DURAMORPH) 10 MG/10 ML AMP ONE (07:17)
[2017-05-04] MEDS ORDERED: BUPIVACAINE 0.25% 30 ML (SENSORCAINE) VIAL ONE (07:17)
[2017-05-04] MEDS ORDERED: ceFAZolin 2 GM/NS 50 ML IV ONE (07:30)
[2017-05-04] MEDS ORDERED: HYDROcodone/APAP 7.5 MG/325 MG (LORTAB, LORCET PLUS) TABLET PO PRN (07:30)
[2017-05-04] MEDS ORDERED: CATHETER FLUSH 10 ML SYR IV PRN (07:30)
--- NOTE | 2017-05-04 07:32 | Progress Note-Pre Operative ---
Pre-Operative Progress Note H&P Reviewed The H&P was reviewed, patient examined and no changes noted. Date Seen by Provider: May 04, 2017 Time Seen by Provider: 07:11 Date H&P Reviewed: May 04, 2017 Time H&P Reviewed: 07:11 Pre-Operative Diagnosis: right knee ACL tear BRANDIN CELESTIN MD May 04, 2017 07:31
--- NOTE | 2017-05-04 07:33 | Progress Note-Post Operative ---
Post-Operative Progess Note Surgeon (s)/Mathematics Teacher (s) Surgeon BRANDIN CELESTIN MD Mathematics Teacher: Fidencio Lucas Pre-Operative Diagnosis right knee ACL tear Post-Operative Diagnosis right knee ACL tear and chondromalacia of the patella Procedure & Operative Findings Date of Procedure 05/04/17 Procedure Performed/Findings right knee arthroscopic ACL reconstruction and chondroplasty of the patella Anesthesia Type GETA plus femoral nerve block Estimated Blood Loss Estimated blood loss (mL): minimal Specimens/Packing Specimens Removed none Packing: none BRANDIN CELESTIN MD May 04, 2017 07:33
[2017-05-04] MEDS ORDERED: SEVOFLURANE (ULTANE) 15 ML INHAL SOLN ONE (08:15)
[2017-05-04] MEDS ORDERED: LABETALOL HCL 20 MG/4 ML VIAL ONE (09:09)
[2017-05-04] MEDS ORDERED: GLYCOPYRROLATE 0.2 MG/ML (ROBINUL) 2 ML VIAL ONE (09:09)
[2017-05-04] MEDS ORDERED: NEOSTIGMINE (BLOXIVERZ ) 1 MG/1ML 10 ML VIAL ONE (09:09)
[2017-05-04] MEDS ORDERED: morphine INJ 10 MG/ML 1ML (SYR OR VIAL) ONE (09:31)
[2017-05-04] MEDS ORDERED: ONDANSETRON 4 MG/2 ML (SDV) Z0FRAN IVP PRN (09:45)
[2017-05-04] MEDS ORDERED: fentaNYL INJECTION 100 MCG/2 ML AMP IVP PRN (09:45)
[2017-05-04] MEDS: morphine INJ 10 MG/ML 1ML (SYR OR VIAL) IVP PRN ×2 (09:48→10:00)
[2017-05-04 10:30] VITALS: BP 131/72
[2017-05-04] MEDS ORDERED: HYDR-3816 PO (10:47)
[2017-05-04 11:00] VITALS: BP 128/76
[2017-05-04 11:30] VITALS: BP 135/74
[2017-05-04 11:34] VITALS: BP 115/77
--- NOTE | 2017-05-04 11:41 | Physical Therapy Ortho Eval ---
PT Orthopedic Evaluation Type of Surgery ACL repair-right Prior Level of Function Current Living Status: Significant Other Locomotion (Upon Admit): Independent Established Durable Medical Eq: Front Wheeled Walker Subjective Subjective Pt was laying in bed and agreeable to PT. Pt has knee immobilizer set to 0-30 degrees of extension/flex. Pt reports 7/10 pain in right knee. Entry Into Home: Stairs Without Railing Steps Into Home: 3 Steps Inside Home: 0 ROM ROM: WFL, except focal deficit Strength Strength: Gen Weak,No Focal Deficit NT due to surgery Transfer Transfers (B, C, W/C) (FIM): 5 Gait Gait Assistive Device: FWW Right Lower Extremity: Right Weight Bearing Status RLE: Weight Bearing/Tolerated Gait (FIM): 2 Distance (FIM): 6=301-58 ft Distance: 50' Gait Level of Assist: 4 Summary/Comments Pt ambulates 50' using FWW with close CGA for safety. Pt has used walker for previous knee surgery, is able to ambulate safely, slowly due to 7/10 pain. Treatment Rendered Treatment: Therapeutic Exercises, Gait Train, Step Train Exercise Instruction: Quad Sets, Ankle Pumps Pt completes gait training, and completes 1 step with FWW and close CGA for safety. Pt completes AP, QS x15, is instructed to perform exercises at home 3 times a day. Assessment/Goals Goal Time Frame: 1 Visit Understands HEP: Yes Safe Ambulation: Yes Plan Treatment Plan: Discharge Pt plans to discharge to home with family support. Pt will continue PT in outpatient facility. PT/Family Agrees to Plan: Yes Time Time In: 1120 Time Out: 1133 Total Billed Treatment Time: 13 Billed Treatment Time 1 visit 13 EVL Yes PT/OT Therapy GCodes Therapy Functional Limitation: Physical Therapy Test(s)/Tool used to determine: Level of Assistance Scale Functional Limitation-Current Charge Code: MOBCUR Modifier: CI Functional Limitation-Goal Charge Code: MOBGOAL Modifier: CI Functional Limitation-D/C Charge Codes: MOBDC Modifier: CI NAYA STEPHENSON PT May 04, 2017 11:41
--- NOTE | 2017-05-04 14:43 | OPERATIVE REPORT ---
DATE OF SERVICE: 05/04/2017 PREOPERATIVE DIAGNOSIS: Right knee anterior cruciate ligament tear. POSTOPERATIVE DIAGNOSES: 1. Right knee anterior cruciate ligament tear. 2. Right knee chondromalacia of the patella. PROCEDURES: 1. Right knee arthroscopic anterior cruciate ligament reconstruction. 2. Right knee arthroscopic chondroplasty of the patella. SURGEON: Dr. Celestin. MANAGER SMALL BUSINESS: Fidencio Lucas who assisted throughout the procedure and close the incisions. ANESTHESIA: General endotracheal plus femoral nerve block by Sangita Workman CRNA. TOURNIQUET TIME: 55 minutes at 300 mmHg. ESTIMATED BLOOD LOSS: Minimal. DRAINS: None. COMPLICATIONS: None. POSTOPERATIVE PLAN: ACL protocol. The patient is transferred to the recovery room awake and in stable condition. STATEMENT OF MEDICAL NECESSITY: The patient is a 47-year-old female who reported right knee instability and pain. She had a partial anterior cruciate ligament disruption and it was felt that this was nonfunctioning as the patient had continued feelings of instability and giving way and because of this the patient elected to proceed with surgical intervention. PHYSICAL EXAMINATION: Examination under anesthesia revealed a 2+ allotment with a positive pivot shift, 2+ anterior drawer. No varus or valgus laxity. Negative posterior drawer. Range of motion is 5/0/140. ARTHROSCOPIC FINDINGS: The patella demonstrated grade 2 chondral flap superiorly in a 10 x 10 area. The medial and lateral compartments demonstrated no significant meniscal or chondropathology. The ACL was completely disrupted from its femoral attachment. The PCL was intact. PROCEDURE: After the risks and benefits of the procedure were discussed and questions were answered and informed consent was signed and placed on the chart, the operative site was confirmed in the preoperative holding area and initialed by the surgeon. The patient was then transported to the operating room after adequate levels of regional plus general endotracheal anesthetic were obtained, a timeout was called confirming the operative site. Examination under anesthesia was performed with the above findings noted. The right lower extremity was then prepped and draped in the usual sterile fashion. The knee joint was injected with 60 mL of fluid and a standard superior medial inflow cannula was placed. An inferior lateral port was placed with the arthroscope and under direct visualization, an inferomedial port was created. The ACL stump was debrided off the tibia. The undersurface of the patella was debrided with a shaver back to a stable edge. Due to bleeding in the synovium the tourniquet was inflated. The tibial guide was then placed at 55 degrees 6 mm anterior to the posterior cruciate ligament, 6 mm lateral to the medial femoral condyle. A 2 cm incision was then made one thumb breadth medial to the tibial tubercle and the guidewire was passed intra-articularly. This was then overreamed with a 9 mm reamer. This was then debrided with a shaver through the medial portal flexible guide was placed a flexible guide pain was passed at the ACL stump remnant. This was then overreamed with a 9 mm reamer and good backwall remained. This was placed at the 10 o'clock position. This was reamed to a depth of 25 mm. Sutures were then shuttled from the femoral tunnel into the tibial tunnel and the graft was passed. The Endobutton was then secured on the lateral cortex and the graft was pulled vigorously to ensure that it was adequately fixed. This was then walked into the tunnel to a depth of 20 mm. This was pulled vigorously at the tibial exit site and found to be stable. The knee was taken through range of motion with full motion obtained. No impingement was noted. Negative Odell and negative anterior drawer. With the knee held in approximately 20 degrees of flexion, a biointerference screw was placed on the tibial side with excellent purchase obtained. Excessive graft length was resected. The knee joint was copiously irrigated. The graft was closely inspected arthroscopically and found to be in excellent position through full range of motion with no impingement noted. The patient had a negative Odell, negative anterior drawer and negative pivot shift. The knee joint was copiously irrigated, as were the incision sites. The portal sites were closed with 4-0 nylon in a simple interrupted fashion. The tibial tunnel site was closed with 4-0 nylon vertical mattress in an interrupted fashion. A soft dressing and brace were applied. The tourniquet was deflated prior to wound closure, and the patient was transported to the recovery room awake in stable condition. Job ID: [id number] DocumentID: [id number] Dictated Date: 05/04/2017 09:25:46 Vice President [employer] Date: 05/04/2017 14:43:03 Dictated By: BRANDIN CELESTIN MD
== END 2017-05-04 11:34 | disposition home or self-care (01) ==
LOC: SDC 06:00
PROVIDERS: ATTEND Orthopaedic Surgery
DX: S83.511A Sprain of anterior cruciate ligament of right knee, initial encounter (principal); X58.XXXA Exposure to other specified factors, initial encounter; M22.41 Chondromalacia patellae, right knee; E11.40 Type 2 diabetes mellitus with diabetic neuropathy, unspecified; I10 Essential (primary) hypertension; E03.9 Hypothyroidism, unspecified; F41.9 Anxiety disorder, unspecified; F32.9 Major depressive disorder, single episode, unspecified; K21.9 Gastro-esophageal reflux disease without esophagitis; G47.33 Obstructive sleep apnea (adult) (pediatric); K22.70 Barrett's esophagus without dysplasia; Z87.891 Personal history of nicotine dependence; Z79.899 Other long term (current) drug therapy
CPT/HCPCS: 82962; 84703

== ENCOUNTER 2017-08-05 10:14 | Outpatient (CLI) | payer MEDICAID ==
[~2017-08-05] VITALS: Ht 157.5 cm; Wt 104.3 kg
[~2017-08-05 10:14] MED LIST changes: +CHOL10003 PO; +FESO8TAB PO; +FLUT15.88 NS; +LORA-404 PO
[2017-08-05] MEDS ORDERED: LISI2.5T PO (10:39)
[2017-08-05] MEDS ORDERED: HYDR50TA76 PO (10:39)
[2017-08-05] MEDS ORDERED: OXYB5TAB9 PO (10:39)
[2017-08-05] MEDS ORDERED: BUSP10TA95 PO (10:39)
[2017-08-05] MEDS ORDERED: PSEU30TA37 PO (10:39)
== END 2017-08-05 10:41 ==
LOC: PREOP 10:14
PROVIDERS: ATTEND Surgery
DX: Z01.818 Encounter for other preprocedural examination (principal); K22.70 Barrett's esophagus without dysplasia

== ENCOUNTER → 2017-08-09 | Outpatient (CLI) | payer MEDICAID ==
[~2017-08-09] MED LIST changes: +BIOT5000 PO; +ESCI20TA PO; +MELO-170 PO; +MONT10TA21 PO; +PROM50TA3 PO; +PSEU30TA37 PO
--- NOTE | 2017-08-09 09:20 | Diagnostic Imaging Report ---
PROCEDURE: US Gallbladder. TECHNIQUE: Multiple real-time grayscale images were obtained over the right upper quadrant in various projections. INDICATION: Abdominal pain. COMPARISON: None. FINDINGS: The liver appears unremarkable. There is no biliary dilatation. The common bile duct measures about 4 mm. Doppler imaging demonstrates normal hepatopetal flow in the main portal vein. There are numerous stones seen in the gallbladder. There is no gallbladder wall thickening or pericholecystic fluid. There is no sonographic Cat sign. The pancreas is not well seen. The right kidney measures 10.4 cm in length and appears normal. There is no ascites. IMPRESSION: 1. Cholelithiasis without evidence of cholecystitis. 2. No additional abnormality is seen. The pancreas is not well visualized. Dictated by: Dictated on workstation # [id number]
== END ==
LOC: RAD 08:15
PROVIDERS: ATTEND Surgery
DX: K80.20 Calculus of gallbladder without cholecystitis without obstruction (principal)
CPT/HCPCS: 76705

== ENCOUNTER 2017-08-11 09:00 | Day surgery (SDC) | payer MEDICAID ==
[~2017-08-11] VITALS: Ht 157.5 cm; Wt 104.3 kg
[~2017-08-11 09:00] MED LIST changes: -BIOT5000 PO; -ESCI20TA PO; -MELO-170 PO; -MONT10TA21 PO; -PROM50TA3 PO
[2017-08-11] MEDS ORDERED: LACTATED RINGERS 1,000 ML IV PRN (09:28)
[2017-08-11] MEDS ORDERED: LACTATED RINGERS 1,000 ML IV STA (09:28)
[2017-08-11] MEDS ORDERED: HURRICAINE EXT TUBE (BENZOCAINE) XX PRN (09:30)
--- NOTE | 2017-08-11 09:31 | Progress Note-Pre Operative ---
Pre-Operative Progress Note H&P Reviewed The H&P was reviewed, patient examined and no changes noted. Time Seen by Provider: 09:28 Date H&P Reviewed: Aug 11, 2017 Time H&P Reviewed: 09:30 Pre-Operative Diagnosis: Dysphagia, hx of DERIC Lund DO Aug 11, 2017 09:31
[2017-08-11 10:00] VITALS: BP 126/74
[2017-08-11] MEDS ORDERED: PROM50TA3 PO (10:24)
[2017-08-11] MEDS ORDERED: FLUT15.88 NS (10:24)
[2017-08-11] MEDS ORDERED: MONT10TA21 PO (10:24)
[2017-08-11] MEDS ORDERED: MELO-170 PO (10:24)
[2017-08-11] MEDS ORDERED: BIOT5000 PO (10:24)
[2017-08-11] MEDS ORDERED: ESCI20TA PO (10:24)
[2017-08-11] MEDS ORDERED: PROPOFOL INJECTION 50 ML IV ONE (10:25)
[2017-08-11] MEDS ORDERED: MIDAZOLAM 2 MG/2 ML (VERSED) VIAL ONE ×2 (10:25→10:41)
--- NOTE | 2017-08-11 10:56 | Progress Note-Post Operative ---
Post-Operative Progess Note Surgeon (s)/Ultrasound Specialist (s) Surgeon DERIC SAMUELS DO Ultrasound Specialist: none Pre-Operative Diagnosis Dysphagia, hx of Barretts Post-Operative Diagnosis Same Gastritis Procedure & Operative Findings Date of Procedure 08/11/17 Procedure Performed/Findings EGD with biopsy Anesthesia Type IV Sedation by PROGRAMMER OR ANALYST Estimated Blood Loss Estimated blood loss (mL): scant Specimens/Packing Specimens Removed antral bx GE jxn bx esophageal bx DERIC SAMUELS DO Aug 11, 2017 10:56
--- NOTE | 2017-08-11 10:58 | Endoscopy Discharge Instruct ---
Endo Procedure/Findings Findings 1.: Gastritis 2.: Mendez's Esophagus Discharge Instructions - Activity: You might feel a little sleepy until tomorrow. This is due to the medicine you received to relax you. Until tomorrow, you should: NOT drive a car, operate machinery or power tools. NOT drink any alcoholic beverages. NOT make any important decisions or sign importortant papers. Do not return to work until tomorrow, unless otherwise instructed. Resume previous activities tomorrow. Diet: Start by taking liquids. If you tolerate liquids, advance to solid food. make appointment for one week. Notify Physician - If you experience excessive bleeding, unusual abdominal pain, fever, or chest pain, contact your doctor immediately. Follow-Up: - I have received and understand the above instructions and will call my doctor if I have any further questions. Patient Signature Date Nurse Signature Other (Relationship) DERIC SAMUELS DO Aug 11, 2017 10:57
[2017-08-11 11:10] VITALS: BP 107/65
[2017-08-11 11:31] VITALS: BP 113/64
[2017-08-11 11:44] VITALS: BP 113/64
--- NOTE | 2017-08-11 15:03 | OPERATIVE REPORT ---
DATE OF SERVICE: 08/11/2017 PREOPERATIVE DIAGNOSES: Dysphagia, history of Mendez's esophagus and possible stricture. POSTOPERATIVE DIAGNOSES: Dysphagia, history of Mendez's esophagus, gastritis, hiatal hernia. PROCEDURE: EGD with biopsy. SURGEON: Cornell Macias DO. SEARCH ANALYST: None. ANESTHESIA: IV sedation by MARINE SCIENTIST. SPECIMEN: One biopsy from the antrum, two biopsies from the GE junction and one biopsy from the esophagus. BLOOD LOSS: Scant. FLUIDS: Per anesthesia. POSTOPERATIVE CONDITION: Stable. INDICATION FOR PROCEDURE: The patient is a 47-year-old female with a history of Mendez's esophagus. States she has had multiple dilatations of the esophagus secondary to Mendez's esophagus and she starting to have more trouble swallowing. FINDINGS: The patient had a normal appearing esophagus. No strictures noted. She did have possibly creeping up of the gastric mucosa. Biopsies were taken and a little bit of gastritis seen. PROCEDURE NOTE: After informed consent was obtained, the patient was brought to the endoscopy suite, placed in the bed in the left lateral decubitus position and administered IV sedation by the MARINE SCIENTIST and vitals were monitored the entire time by the MARINE SCIENTIST. She had stated before that she had some trouble with anxiety, but she is very calm during the case. Inserted the scope down the mouth into the esophagus and down into the stomach while traveling down the esophagus I did not see any strictures. In the stomach, antrum looked like there is a little bit of some gastritis, pushed into the first portion of duodenum looked normal, took a picture of this, took a picture of the antrum, then did a biopsy in the antrum, retroflexed the scope. The patient noted to have a very small hiatal hernia. A picture of this hiatal hernia was taken and then slowly withdrew the scope into the esophagus, took a picture of the GE junction and then did a couple of biopsies at the GE junction, did look like it was creeping up a little bit and then up a little bit higher not like it aligned, but from the GE junction was some extra possible gastric mucosal changes. Biopsy was done here in the esophagus and then pulled the scope out. Took a picture of the esophagus and then completely removed the scope. The patient tolerated the procedure and she recovered in the endoscopy suite. Job ID: [id number] DocumentID: [id number] Dictated Date: 08/11/2017 11:10:04 Hat Band Attacher Date: 08/11/2017 15:02:56 Dictated By: CORNELL MACIAS DO
== END 2017-08-11 11:45 | disposition home or self-care (01) ==
LOC: ENDO 09:00
PROVIDERS: ATTEND Surgery
DX: K22.70 Barrett's esophagus without dysplasia (principal); K21.9 Gastro-esophageal reflux disease without esophagitis; K44.9 Diaphragmatic hernia without obstruction or gangrene; K29.70 Gastritis, unspecified, without bleeding; I10 Essential (primary) hypertension; G47.33 Obstructive sleep apnea (adult) (pediatric); E11.43 Type 2 diabetes mellitus with diabetic autonomic (poly)neuropathy; E03.9 Hypothyroidism, unspecified; F32.9 Major depressive disorder, single episode, unspecified; F41.9 Anxiety disorder, unspecified; F43.10 Post-traumatic stress disorder, unspecified; E66.01 Morbid (severe) obesity due to excess calories; Z68.41 Body mass index [BMI] 40.0-44.9, adult; Z79.4 Long term (current) use of insulin; Z79.899 Other long term (current) drug therapy
CPT/HCPCS: 82962

== ENCOUNTER → 2017-10-03 | Outpatient (CLI) | payer MEDICAID ==
[~2017-10-03] MED LIST changes: +BIOT5000 PO; +ESCI20TA PO; +HYDR-34 PO; -HYDR-3816 PO; +MELO-170 PO; +MONT10TA21 PO; +PROM50TA3 PO
--- NOTE | 2017-10-03 17:22 | Diagnostic Imaging Report ---
INDICATION: Bilateral leg pain and swelling. Bilateral lower extremity venous Doppler study was performed in the routine fashion with color flow Doppler and waveform analysis. FINDINGS: The common femoral veins, superficial femoral veins, popliteal veins and visualized portion of the tibial veins show normal compressibility and venous flow patterns. There is normal augmentation. IMPRESSION: No evidence of deep vein thrombosis in the major veins of both legs. Dictated by: Dictated on workstation # [id number]
--- NOTE | 2017-10-03 18:56 | Diagnostic Imaging Report ---
INDICATION: Bilateral leg pain. Bilateral lower extremity arterial Doppler study performed in the routine fashion with color-flow Doppler and waveform analysis. Flow is triphasic throughout the arterial tree on both sides with no focal high velocity jets or occluded segments. IMPRESSION: Unremarkable bilateral lower extremity arterial Doppler study. Dictated by: Dictated on workstation # [id number]
== END ==
LOC: RAD 15:55
PROVIDERS: ATTEND Nurse Practitioner Family
DX: M79.89 Other specified soft tissue disorders (principal); R09.89 Other specified symptoms and signs involving the circulatory and respiratory systems
CPT/HCPCS: 93925; 93970

== ENCOUNTER 2018-02-13 10:48 | Day surgery (SDC) | payer MEDICAID ==
[~2018-02-13] VITALS: Ht 157.5 cm; Wt 109.2 kg
[~2018-02-13 10:48] MED LIST changes: -ACET-2469 PO; -ACHD5005 PO; -CYCL5TAB PO; -DICL100G31 TOP; -DICY20TA10 PO; -LEVO50TA6 PO; -LORA0.5T PO; -MELA5CAP PO; -MENT118G TP; -PANT40TA3 PO
--- OUTSIDE RECORDS SUMMARY | 2018-02-13 10:54 | XMS REPORT ---
Author Author DYLLAN GAMING [facility] Address [address] [place] [address] Care Team Providers Care Wood Box Maker Name Role Phone DYLLAN GAMING Unavailable PROBLEMS Type Condition ICD9-CM Code [id number] Code Onset Dates Condition Status SNOMED Code Problem Gastric pain R10.9 Active 220168209 Problem GERD without esophagitis K21.9 Active 299781260 Problem Gastroparesis K31.84 Active 430658832 Problem Leukocytosis, unspecified type D72.829 Active 473567517 Problem Chronic constipation K59.00 Active 902347261 Problem Mixed hyperlipidemia E78.2 Active 176929374 Problem Mixed stress and urge urinary incontinence N39.46 Active 065934465 Problem Mendez''s esophagus with dysplasia K22.719 Active 727988416 Problem Sleep apnea in adult G47.30 Active 65860644 Problem Current moderate episode of major depressive disorder without prior episode F32.1 Active 85745637 Problem Diabetic polyneuropathy associated with type 2 diabetes mellitus E11.42 Active 54764737 Problem Other chronic pain G89.29 Active 39609793 Problem Anxiety F41.9 Active 84852841 Problem Diabetes type 2, controlled E11.9 Active 55455645 Problem Anxiety about health F41.8 Active 712264800 Problem Low back pain M54.5 Active 885432845 Problem Acquired hypothyroidism E03.9 Active 595641469 Problem Left foot pain M79.672 Active 27189311 Problem PTSD (post-traumatic stress disorder) F43.10 Active 30681015 Problem Irritable bowel syndrome with both constipation and diarrhea K58.2 Active [id number] ALLERGIES No Information ENCOUNTERS Encounter Location Date Diagnosis [facility] [address] [facility] [id number] [place] [id number] Mar, [facility] [id number] [place] [address] [id number] Jan, BMI 40.0-44.9, adult Z68.41 ; Right foot pain M79.671 ; Irritable bowel syndrome with both constipation and diarrhea K58.2 ; Diabetic polyneuropathy associated with type 2 diabetes mellitus E11.42 ; Other chronic pain G89.29 ; Acquired hypothyroidism E03.9 and Leukocytosis, unspecified type D72.829 [address] [id number] December, Diabetes type 2, controlled E11.9 ; BMI 40.0-44.9, adult Z68.41 ; Other chronic pain G89.29 ; Mixed hyperlipidemia E78.2 ; High risk medication use Z79.899 ; Diabetic polyneuropathy associated with type 2 diabetes mellitus E11.42 ; Fever, unspecified fever cause R50.9 ; Gastroparesis due to secondary diabetes E13.43 ; Irritable bowel syndrome with both constipation and diarrhea K58.2 ; Pain of upper abdomen R10.10 ; Anxiety F41.9 ; Gastroparesis K31.84 and Acquired hypothyroidism E03.9 [address] [id number] December, Diabetic polyneuropathy associated with type 2 diabetes mellitus E11.42 ; Anxiety F41.9 and Other chronic pain G89.29 [facility] [address] [id number] [address] December, Onychomycosis B35.1 and Contusion of left foot, initial encounter S90.32[id number] [id number] Nov, Diabetic polyneuropathy associated with type 2 diabetes mellitus E11.42 ; Anxiety F41.9 and Other chronic pain G89.29 [address] [place] [address] [id number] Oct, Other chronic pain G89.29 ; Anxiety F41.9 and Diabetic polyneuropathy associated with type 2 diabetes mellitus E11.42 [address] [id number] Oct, Neutrophilia D72.9 [address] [address] Sep, Neutrophilia D72.9 ; Lymphocytosis D72.820 and Leukocytosis, unspecified type D72.829 [address] [id number] Sep, Leukocytosis, unspecified type D72.829 ; Vaginal discharge N89.8 ; Cramp of toe R25.2 ; Sleep apnea in adult G47.30 ; Diabetic polyneuropathy associated with type 2 diabetes mellitus E11.42 ; Anxiety F41.9 ; Other chronic pain G89.29 ; Acquired hypothyroidism E03.9 ; Gastroparesis K31.84 ; PTSD (post- traumatic stress disorder) F43.10 ; Sinus congestion R09.81 and BMI 40.0-44.9, adult Z68.41 [address] [place] [address] [id number] Sep, Syncope, unspecified syncope type R55 ; BMI 40.0-44.9, adult Z68.41 ; Anxiety F41.9 ; Anxiety about health F41.8 ; Post traumatic stress disorder ( PTSD) F43.10 ; Current moderate episode of major depressive disorder without prior episode F32.1 ; Constipation by delayed colonic transit K59.01 ; Diabetic polyneuropathy associated with type 2 diabetes mellitus E11.42 ; Acquired hypothyroidism E03.9 ; Gastroparesis K31.84 ; PTSD (post-traumatic stress disorder) F43.10 ; Sinus congestion R09.81 ; Other chronic pain G89.29 ; Diminished pulses in lower extremity R09.89 and Swelling of lower extremity M79.89 [address] [place] [address] [id number] Aug, Carbuncle and furuncle of buttock L02.33 ; Radicular pain of lower extremity M54.10 ; Mixed stress and urge urinary incontinence N39.46 ; Nail ingrowing L60.0 and BMI 40.0-44.9, adult Z68.41 [facility] [address], [place] [address] Aug, [address] [place] [address] [id number] Aug, Diabetic polyneuropathy associated with type 2 diabetes mellitus E11.42 ; Anxiety F41.9 and Other chronic pain G89.29 [address] [place] [address] [id number] Jul, [facility] [address] [place] [address] Jul, [address] [id number] Jul, Diabetic polyneuropathy associated with type 2 diabetes mellitus E11.42 ; Anxiety F41.9 and Other chronic pain G89.29 [address] [place] [address] [id number] Jul, BMI 40.0-44.9, adult Z68.41 ; Diabetes type 2, controlled E11.9 ; Sinus congestion R09.81 ; Sore throat J02.9 ; Gastroparesis K31.84 ; Mendez''s esophagus with dysplasia K22.719 ; Lumbago with sciatica, right side M54.41 and Other chronic pain G89.29 [facility] [address] [place] [address] 2546 Jul, [address] [place] [address] [id number] Jun, Acute non-recurrent frontal sinusitis J01.10 ; Acute diffuse otitis externa of both ears H60.313 and BMI 40.0-44.9, adult Z68.41 [address] [place] [address] [id number] Jun, Diabetic polyneuropathy associated with type 2 diabetes mellitus E11.42 ; Other chronic pain G89.29 and Anxiety F41.9 [address] [place] [address] [id number] Jun, [address] [place] [address] [id number] Apr, Anxiety F41.9 ; Gastroparesis K31.84 ; Other chronic pain G89.29 ; PTSD ( post-traumatic stress disorder) F43.10 ; Acquired hypothyroidism E03.9 ; Diabetic polyneuropathy associated with type 2 diabetes mellitus E11.42 ; Chronic seasonal allergic rhinitis, unspecified trigger J30.2 ; Urge incontinence of urine N39.41 ; Acute diffuse otitis externa of right ear H60.311 and BMI 45.0-49.9, adult Z68.42 [facility] [address] [place] [address] [id number] 14 Apr, 2017 Chronic seasonal allergic rhinitis, unspecified trigger J30.2 and Encounter for immunization Z23 [facility] [id number] [place] [address] [id number] 11 Apr, 2017 Diabetic polyneuropathy associated with type 2 diabetes mellitus E11.42 ; Acute pain of right knee M25.561 and Post traumatic stress disorder (PTSD) F43.10 [facility] [address] [address] Mar, [address] [place] [address] [id number] Mar, Well woman exam with routine gynecological exam Z01.419 ; Stress incontinence N39.3 ; High risk sexual behavior Z72.51 ; Screening breast examination Z12.31 and Nausea R11.0 [id number] [place] [address] [id number] Mar, Other chronic pain G89.29 ; Bladder leak R32 ; Sore throat J02.9 ; Post traumatic stress disorder (PTSD) F43.10 and Acute pain of right knee M25.561 [address] [place] [address] [id number] Feb, [address] [place] [address] [id number] Feb, Acquired hypothyroidism E03.9 ; Diabetic polyneuropathy associated with type 2 diabetes mellitus E11.42 ; Other chronic pain G89.29 ; Diarrhea, unspecified type R19.7 ; GERD without esophagitis K21.9 ; Post traumatic stress disorder (PTSD) F43.10 ; Intentional self-harm by blunt object, subsequent encounter X79.XXXD and Acute pain of right knee M25.561 [id number] [id number] Feb, Acquired hypothyroidism E03.9 [facility] [address] [id number] [id number] Jan, Acquired hypothyroidism E03.9 ; Diabetic polyneuropathy associated with type 2 diabetes mellitus E11.42 ; Other chronic pain G89.29 ; Diarrhea, unspecified type R19.7 ; GERD without esophagitis K21.9 ; Post traumatic stress disorder (PTSD) F43.10 ; Intentional self-harm by blunt object, subsequent encounter X79.XXXD and Acute pain of right knee M25.561 [facility] [address] [place] [address] [id number] Jan, Acquired hypothyroidism E03.9 ; Diabetic polyneuropathy associated with type 2 diabetes mellitus E11.42 ; Other chronic pain G89.29 ; Diarrhea, unspecified type R19.7 ; GERD without esophagitis K21.9 ; Post traumatic stress disorder (PTSD) F43.10 and Intentional self-harm by blunt object, initial encounter X79.XXXA [facility] [address] [id number] Jan, [address] [place] [address] [id number] December, PTSD (post-traumatic stress disorder) F43.10 ; Gastroparesis due to secondary diabetes E13.43 ; Chronic diarrhea K52.9 ; Non-seasonal allergic rhinitis due to pollen J30.1 and Constipation by delayed colonic transit K59.01 [facility] [address] [facility] [id number], [place] [address] December, [address] [id number] [id number] December, Diabetic polyneuropathy associated with type 2 diabetes mellitus E11.42 [address] [place] [address] [id number] December, Diabetes type 2, uncontrolled E11.65 ; GERD without esophagitis K21.9 and PTSD (post-traumatic stress disorder) F43.10 [address] [place] [address] [id number] Nov, Anxiety F41.9 [facility] [place] [id number] [id number] Nov, Diabetic polyneuropathy associated with type 2 diabetes mellitus E11.42 [facility] [place] [id number][place] [id number] Oct, Anxiety F41.9 [facility] [place] [id number] [id number] Sep, Gastroparesis due to secondary diabetes E13.43 and Anxiety F41.9 [facility] [address] [address] Aug, [facility] [place] [id number] [place] [address] [id number] Aug, Chronic constipation K59.09 and Diarrhea, unspecified type R19.7 [facility] [place] [id number], [place] [id number] Aug, Diabetic polyneuropathy associated with type 2 diabetes mellitus E11.42 [facility] [place] [id number], [place] [id number] Aug, Gastroparesis K31.84 ; Diabetes type 2, uncontrolled E11.65 ; Gastric pain R10.9 ; Irritable bowel syndrome with both constipation and diarrhea K58.2 and Chronic constipation K59.00 [facility] [place] [id number], [place] [id number] Aug, Dark stools R19.5 [facility] [place] [id number], [place] [id number] Aug, Gastroparesis K31.84 and Chronic constipation K59.00 [facility] [place] [id number], [place] [id number] 09 Aug, 2016 Dark stools R19.5 ; Diabetes type 2, uncontrolled E11.65 ; Gastroparesis due to secondary diabetes E13.43 and Constipation by delayed colonic transit K59.01 [facility] [place] [id number], [place] [id number] Aug, Anxiety F41.9 [facility] [place] [id number] [id number] Aug, Nausea R11.0 ; Left foot pain M79.672 ; Pain in right knee M25.561 ; Low back pain M54.5 and Other chronic pain G89.29 [facility] [address], [place] [address] Jul, [facility] [id number], [place] [id number] Jul, [id number] [place] [address] Jul, PTSD (post-traumatic stress disorder) F43.10 [facility] [address]100[place] [id number] Jul, Anxiety F41.9 [facility] [address], [place] [address] Jul, [address] [id number] Jul, PTSD (post-traumatic stress disorder) F43.10 [facility] [id number], [place] [id number] Jul, Diabetes type 2, uncontrolled E11.65 ; Left foot pain M79.672 ; Toe pain, right M79.674 ; Low back pain M54.5 ; Other chronic pain G89.29 ; Pain in right knee M25.561 ; PTSD (post-traumatic stress disorder) F43.10 and Anxiety F41.9 [facility] [id number], [place] [id number] Jul, [facility] [address] [id number] [id number] Jun, PTSD (post-traumatic stress disorder) F43.10 [facility] [address] [id number] Jun, [facility] [id number], [place] [address] Jun, [facility] [id number] [place] [address] [id number] Jun, PTSD (post-traumatic stress disorder) F43.10 [facility] [id number] [place] [address] [id number] Jun, [address] [place] [address] [id number] Jun, Cellulitis of right lower extremity L03.115 ; Other chronic pain G89.29 ; Pain in right knee M25.561 ; Pain in left knee M25.562 and Anxiety about health F41.8 [facility] [id number] [place] [address] [id number] May, Anxiety F41.[address] [id number] May, PTSD (post-traumatic stress disorder) F43.10 [id number] [place] [address] [id number] May, Diabetes type 2, uncontrolled E11.65 ; Diabetic polyneuropathy associated with type 2 diabetes mellitus E11.42 ; Gastroparesis due to secondary diabetes E13.43 ; Anxiety F41.9 ; Other chronic pain G89.29 ; Pain in right knee M25.561 ; Pain in left knee M25.562 ; Acquired hypothyroidism E03.9 and Chronic constipation K59.00 [facility] [address] [id number]- [address] May, [id number] [place] [address] [id number] May, [address] [place] [address] [id number] Apr, [address] [place] [address] [id number] Apr, [facility] [address] [address] Apr, [facility] [id number] [place] [address] [id number] Apr, [facility] [address] [address] Apr, [facility] [place] [address] [id number] [place] [id number] Apr, Diabetes type 2, uncontrolled E11.65 ; Diabetic polyneuropathy associated with type 2 diabetes mellitus E11.42 ; Gastroparesis due to secondary diabetes E13.43 and Encounter for immunization Z23 [facility] [place] [address] [id number] [place] [id number] Apr, Gastroparesis K31.84 and Diabetes type 2, controlled E11.9 [facility] [place] [address] [id number] [place] [id number] Mar, Diabetes type 2, controlled E11.9 ; Chronic constipation K59.00 and Gastroparesis K31.84 [facility] [place] [address] [id number] [place] [id number] Mar, [facility] [place] [address] [id number] [place] [id number] Mar, Diabetes type 2, controlled E11.9 [facility] [place] [address] [id number] [place] [id number] Mar, [facility] [place] [address] [id number] [place] [id number] Feb, [facility] [place] [address] [id number] [place] [id number] Feb, [facility] [place] [address] [id number] [place] [id number] Feb, Diabetes type 2, controlled E11.9 [facility] [place] [address] [id number] [place] [id number] Feb, [facility] [place] [address] [id number] [place] [id number] Jan, [facility] [place] [address] [id number] [place] [id number] Jan, [facility] [place] [address] [id number] [place] [id number] Jan, Diabetes type 2, controlled E11.9 [facility] [place] [address] [id number] [place] [id number] December, [facility] [place] [id number] [place] [address] [id number] December, Diabetes type 2, uncontrolled E11.65 and Diabetes type 2, controlled E11.9 [address] [place] [address] [id number] December, [facility] [address] [id number] Nov, Wound of toenail, subsequent encounter S91.209D and Plantar fascia syndrome M72.[address] [id number] Nov, Ingrown toenail L60.0 [facility] [address] [id number] Nov, Wound of toenail, subsequent encounter S91.209D [address] [id number] Nov, Tinea unguium B35.1 and Ingrowing nail L60.[address] [id number] Nov, Ingrown toenail L60.[address] [id number] Nov, Cellulitis of right lower extremity L03.[address] [id number] Nov, Ingrown toenail L60.0 and Diabetes type 2, controlled E11.9 [address] [address] [place] [address] [id number] Oct, [address] [id number] Oct, Anxiety F41.[address] [id number] Sep, [address] [id number] Sep, Elevated white blood cell count D72.829 and Multiple joint pain M25.[address] [id number] Sep, Diabetes type 2, uncontrolled E11.65 ; Onychomycosis B35.1 ; Skin candidiasis B37.2 and Anxiety F41.9 [facility] [place] [id number] [place] [address] [id number] Aug, [facility] [place] [id number] [place] [address] [id number] Aug, [facility] [place] [address] [place] [address] [id number] Jul, Diabetes type 2, uncontrolled E11.65 [facility] [place] [id number] [place] [address] [id number] Jul, [facility] [place] [id number] [place] [address] [id number] Jul, Diabetes type 2, uncontrolled E11.65 [facility] [place] [id number] [place] [address] [id number] Jul, [facility] [address] [place] [address] [id number] Jun, [facility] [place] [address]00565100[place], [place] [address] Jun, [facility] [address] [place] [address] [id number] Jun, Diabetes type 2, uncontrolled E11.65 ; Chronic constipation K59.00 and Anxiety F41.9 [facility] [id number] [id number] Jun, Plantar fascia syndrome M72.2 [facility] [address]100[place] [id number] May, [facility] [address] [id number] [place] [address] [id number] May, [facility] [address] [place] [address] [id number] May, Encounter for immunization Z23 ; Diabetes type 2, uncontrolled E11.65 and Depression with anxiety F41.8 [facility] [address] [place] [address] [id number] Apr, Chronic constipation 564.00 ; Insomnia, unspecified 780.52 ; Diabetes mellitus, type 2 250.00 ; PTSD (post-traumatic stress disorder) 309.81 and [facility]xiety and depression [facility].00 [facility] [place] [id number], [place] [id number] Apr, [facility] [id number] [place] [address] [id number] Apr, Anxiety and depression 300.00 and PTSD (post-traumatic stress disorder) 309.81 [facility] [id number] [place] [address] [id number] Mar, [place] [place] [address] [id number] Mar, Follow up V67.9 ; Social anxiety disorder 300.23 and Acid reflux 530.81 [facility] [id number] [place] [address] [id number] Feb, [place] [address] [place] [address] [id number] Feb, [facility] [id number] [place] [address] [id number] Feb, [place] [address] [place] [address] [id number] Feb, [facility] [address] [address] Feb, [place] [address] [place] [address] [id number] Feb, Unspecified hereditary and idiopathic peripheral neuropathy 356.9 ; Heartburn 787.1 ; Uncontrolled type 2 diabetes with neuropathy 250.62 ; Otitis externa 380.10 and HEP B (ADULT) DX V05.3 [place] [address] [place] [address] [id number] Jan, [address] [id number] December, [facility] [address] [id number]- 3018 Nov, [facility] [address] [id number]- 4074 Nov, [facility] [place] [facility] [address] [id number] [place] [address]- 2806 Oct, [facility] [place] [facility] [address] [id number] [place] [address]- 2546 Oct, [facility] [place] [address] [facility] [id number] [id number] Oct, [facility] [place] [facility] [address] [facility] [id number][place] [address] 2546 Oct, [facility] [place] [facility] [address] [facility] [id number] [place] [address]- 7687 Oct, [facility] [place] [facility] [address] [facility] [id number] [place] [address]- 9176 Oct, [facility] [place] [address] [facility] [id number][place] [id number] Oct, [facility] [place] [facility] [address] [facility] [id number], [place] [address]- 295[address] Oct, [facility] [address] [facility] [id number][place] [id number] Oct, [facility] [place] [facility] [address] [facility] [id number][place] [address] Oct, [facility] [address] [id number][place] [id number] Oct, [facility] [address] [id number][place] [id number] Oct, [facility] [place] [facility] [address] [facility] [id number], [place] [address] Oct, [facility] [place] [facility] [address] [facility] [id number], [place] [address] Oct, [facility] [address] [facility] [id number][place] [id number] Oct, [facility] [place] [facility] [address] [facility] [id number], [place] [address] Oct, [facility] [place] [facility] [address] [facility] [id number], [place] [address] Sep, [facility] [address] [facility] [id number], [place] [address] Sep, [facility] [address] [facility] [id number][place] [id number] Sep, [facility] [place] [facility] [address] [facility] [id number], [place] [address] Sep, [facility] [place] [facility] [address] [facility] [id number], [place] [address] Sep, [facility] [place] [facility] [address] [facility] [id number], [place] [address] Sep, [facility] [place] [facility] [address] [id number], [place] [address] Aug, [facility] [place] [id number][place] [id number] Aug, [facility] [place] [facility] [address] [facility] [id number], [place] [address] Aug, [facility] [place] [facility] [address] [facility] [id number], [place] [address] Aug, [facility] [place] [id number][place] [address] Aug, [facility] [place] [facility] [address] [facility] [id number], [place] [address] Aug, [facility] [place] [facility] [address] [facility] [id number], [place] [address] Aug, [facility] [place] [facility] [address] [facility] [id number], [place] [address] Aug, [facility] [place] [address] [facility] [id number][place] [id number] Aug, [facility] [place] [address] [facility] [id number][place] [id number] Aug, [facility] [place] [facility] [address] [facility] [id number], [place] [address] Aug, [facility] [place] [facility] [address] [id number], [place] [address] Aug, [facility] [place] [address] [id number][place] [id number] Jul, [facility] [place] [facility] [address] [facility] [id number], [place] [address] Jul, [facility] [place] [address] [id number][place] [id number] Jun, [facility] [place] [facility] [address] [facility] [id number] [place] [address] Jun, [facility] [place] [address] [id number] [place] [id number] Jun, [facility] [place] [facility] [address] [facility] [id number], [place] [address] Jun, [facility] [place] [address] [id number][place] [address] Jun, [facility] [place] [facility] [address] [facility] [id number], [place] [address] Jun, [facility] [place] [facility] [address] [facility] [id number], [place] [address] May, [facility] [place] [facility] [address] [facility] [id number], [place] [address] May, [facility] [address] [id number][place] [id number] May, [facility] [place] [facility] [address] [facility] [id number], [place] [address]17 May, [facility] [address] [id number][place] [address] Apr, [facility] [place] [facility] [address] [id number] [place] [address] Apr, [facility] [address] [id number] [place] [id number] Apr, [facility] [address] [id number] [place] [id number] Apr, [facility] [place] [facility] [address] [id number] [place] [address] 4735 Apr, [facility] [place] [facility] [address] [facility] [id number] [place] [address]- [address]256 Apr, [facility] [address] [facility] [id number] [place] [id number] Apr, [facility] [place] [facility] [address] [facility] [id number] [place] [address] Apr, [facility] [address] [facility] [id number] [place] [id number] Apr, [facility] [place] [facility] [address] [facility] [id number] [place] [address]28 Apr, [facility] [address] [facility] [id number] [place] [id number] Feb, [facility] [place] [facility] [address] [facility] [id number], [place] [address] Feb, [facility] [address] [facility] [id number] [place] [id number] Feb, [facility] [place] [facility] [address] [facility] [id number], [place] [address] Feb, [facility] [place] [facility] [address] [facility] [id number], [place] [address] Jan, [facility] [place] [facility] [address] [facility] [id number], [place] [address] Jan, [facility] [place] [facility] [address] [facility] [id number] [place] [address] Jan, [facility] [address] [facility] [id number] [place] [id number] Jan, [facility] [place] [facility] [address] [facility] [id number] [place] [address]671 Jan, [facility] [place] [facility] [address] [facility] [id number], [place] [address] Jan, [facility] [address] [id number] [place] [id number] Jan, [facility] [place] [facility] [address] [id number] [place] [address]46 Jan, [facility] [place] [address] [id number] [place] [address] December, [facility] [place] [facility] [address] [id number] [place] [address] December, [facility] [place] [address] [id number] [place] [id number] December, [facility] [address] [id number] [place] [id number] December, [facility] [address] [id number] [place] [address] December, [facility] [place] [facility] [address] [facility] [id number], [place] [address] 2246 December, [facility] [place] [facility] [address] [facility] [id number] [place] [address] 1106 December, [facility] [place] [facility] [address] [facility] [id number], [place] [address] December, [facility] [address] [facility] [id number][place] [id number] Nov, [facility] [place] [facility] [address] [facility] [id number], [place] [address] 2546 Nov, [facility] [address] [facility] [id number][place] [id number] Oct, [facility] [place] [facility] [address] [facility] [id number] [place] [address]- [address]46 Oct, [facility] [place] [facility] [address] [facility] [id number] [place] [address]- 8596 Sep, [facility] [place] [facility] [address] [facility] [id number], [place] [address]- 9136 Sep, [facility] [address] [facility] [id number][place] [id number] Aug, [facility] [address] [id number] [place] [address] Aug, [facility] [address] [facility] [id number] [place] [address]- 4[address] Aug, [facility] [address] [facility] [id number][place] [address] 7129 Aug, [facility] [address] [id number] [place] [address] Jul, [facility] [address] [facility] [id number] [place] [address] Jul, [facility] [address] [id number] [place] [id number] Jul, [facility] [address] [facility] [id number][place] [address]39[place] 6517 Jul, [facility] [address] [id number][place] [address] Jun, [facility] [address] [facility] [id number], [place] 29562828- 7543 Jun, [facility] [address] [id number] [place] [address] Apr, [facility] [address] [id number] [place] [id number] Mar, [facility] [address] [id number] [place] [address] Mar, [facility] [address] [id number] [place] [address] Mar, [facility] [address] [id number] [place] [address] Mar, [facility] [address] [id number] [place] [id number] Feb, [facility] [address] [id number] [place] [address] Jan, [facility] [place] [address] [id number] [place] [address] Jan, [facility] [place] [address] [id number] [place] [address] Jan, [facility] [place] [address] [id number] [place] [address] Jan, [facility] [place] [address] [id number] [place] [id number] December, [facility] [place] [address] [id number] [place] [address] December, [facility] [address] [id number] [place] [address] December, [facility] [place] [facility] [address] [id number] [place] [address]- 4019 Jul, [facility] [place] [address] [id number] [place] [address] Jul, [facility] [place] [address] [id number] [place] [address] Jul, [facility] [place] [address] [id number] [place] [address] Jul, [facility] [address] [id number] [place] [address] Jul, [facility] [place] [facility] [id number], [place] [address] Jul, [facility] [place] [facility] [address] [facility] [id number], [place] [address]220- 3692 Jul, [facility] [place] [facility] [address] [facility] [id number][place] [address]34- 8085 Jul, [facility] [address] [id number] [place] [id number] Jun, [facility] [place] [facility] [address] [facility] [id number][place]- 5457 Jun, [facility] [place] [facility] [address] [facility] [id number], [place]19468- 3718 Jul, [facility] [place] [facility] [id number]- 2674 Jul, [facility] [place] [facility] [address] [facility] [id number] [place] [address]- 0185 08 Jul, 2010 [facility] [address] [id number] [place] [address]- 0374 08 Jul, 2010 [facility] [place] [facility] [address] [id number] [place] [address]- 1341 Jun, [facility] [address] [id number] [place] [address]- 6126 Jun, [facility] [place] [facility] [address] [id number] [place] [address] 2545 Jun, [facility] [address] [id number] [place] [address]- 9467 Jun, [facility] [address] [id number] [place] [address]- 7712 Jun, [facility] [address] [facility] [id number] [place] [address]- 4747 May, [facility] [address] [id number] [place] [address]- 7374 May, [facility] [address] [facility] [id number] [place] [address]- 7238 May, [facility] [address] [facility] [id number] [place] [address]- 9454 May, [facility] [place] [facility] [address] [id number] [place] [address]- 2545 16 Nov, 2009 [facility] [address] [id number] [place] [address]- 7998 Jul, [facility] [place] [facility] [address] [id number] [place] [address] 2542 Jun, [facility] [place] [facility] [address] [facility] [id number] [place] [address]- 2549 Jun, [facility] [place] [facility] [address] [id number] [place] [address]- 3166 29 May, 2009 [facility] [address] [id number], [place] [address]- [address]31 May, [facility] [address] [id number], [place] [address]- [address]30 May, [facility] [id number], [place] [address]- 1391 May, [facility] [id number], [place] [address]- 3957 May, [facility] [address] [id number], [place] [address]- 1652 May, [facility] [address] [id number], [place] [address]- 7025 Apr, [facility] [address] [id number], [place] [address]- 1251 Jan, IMMUNIZATIONS No Known Immunizations SOCIAL HISTORY Never Assessed REASON FOR VISIT PA MRI Lumbar w/conrast PLAN OF CARE VITAL SIGNS MEDICATIONS Unknown Medications RESULTS No Results PROCEDURES No Known procedures INSTRUCTIONS MEDICATIONS ADMINISTERED No Known Medications MEDICAL (GENERAL) HISTORY Type Description Date Medical [...] 11/22 Surgical History right knee arthroscopy 03/16/17 Surgical History EGD Mendez;s esophagus, bx taken Aug 2017 Hospitalization History surgeries Hospitalization History ER visit for burning mouth
--- OUTSIDE RECORDS SUMMARY | 2018-02-13 10:55 | XMS REPORT ---
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 Name Role Phone DYLLAN GAMING Unavailable PROBLEMS Type Condition ICD9-CM Code [id number] Code Onset Dates Condition Status SNOMED Code Problem Neutrophilia D72.9 Active 468738431 Problem Lymphocytosis D72.820 Active 57881999 Problem Chronic constipation K59.00 Active 810053604 Problem Diabetes type 2, uncontrolled E11.65 Active 359141055 Problem Anxiety F41.9 Active 71718584 Problem Diabetes type 2, controlled E11.9 Active 30454373 Problem Gastroparesis due to secondary diabetes E13.43 Active 2297379 Problem Diabetic polyneuropathy associated with type 2 diabetes mellitus E11.42 Active 77289413 Problem Acquired hypothyroidism E03.9 Active 617895489 Problem Post traumatic stress disorder (PTSD) F43.10 Active 25878755 Problem Other chronic pain G89.29 Active 27097490 Problem Diarrhea, unspecified type R19.7 Active 18582077 Problem PTSD (post-traumatic stress disorder) F43.10 Active 37811914 Problem Stress incontinence N39.3 Active 70519665 Problem Lumbago with sciatica, right side M54.41 Active 874606484 Problem Urge incontinence of urine N39.41 Active 98389076 Problem Leukocytosis, unspecified type D72.829 Active 956539760 Problem Sleep apnea in adult G47.30 Active 34261455 Problem Pain in right knee M25.561 Active 354792472507772 Problem Pain in left knee M25.562 Active 784995639731272 Problem Anxiety about health F41.8 Active 766341458 Problem Mixed stress and urge urinary incontinence N39.46 Active 414925306 Problem Mendez''s esophagus with dysplasia K22.719 Active 627432130 Problem Current moderate episode of major depressive disorder without prior episode F32.1 Active 37135300 Problem Syncope, unspecified syncope type R55 Active 869085389 Problem Low back pain M54.5 Active 216415314 Problem Irritable bowel syndrome with both constipation and diarrhea K58.2 Active 93150282 Problem Constipation by delayed colonic transit K59.01 Active 73332645 Problem Left foot pain M79.672 Active 94744978 Problem GERD without esophagitis K21.9 Active 311489378 Problem Chronic diarrhea K52.9 Active 339992621 Problem Gastric pain R10.9 Active 077546971 Problem Gastroparesis K31.84 Active 926955930 ALLERGIES Substance Reaction Event Type Date Status Sulfamethoxazole-Trimethoprim swelling Drug Allergy Apr, Active ENCOUNTERS Encounter Location Date Diagnosis [facility] [address] [address] Mar, [place] [address] [id number] [place] [address] [id number] December, [address] [id number] December, High risk medication use Z79.899 and Controlled substance agreement signed Z79.899 [address] [id number] [place] [address] [id number] December, Diabetic polyneuropathy associated with type 2 diabetes mellitus E11.42 ; Anxiety F41.9 and Other chronic pain G89.29 [facility] [id number] [place] [address] December, Onychomycosis B35.1 and Contusion of left foot, initial encounter S90.32XA [place] [address] [place] [address] [id number] Nov, Diabetic polyneuropathy associated with type 2 diabetes mellitus E11.42 ; Anxiety F41.9 and Other chronic pain G89.29 [place] [id number] [place] [address] [id number] Oct, Other chronic pain G89.29 ; Anxiety F41.9 and Diabetic polyneuropathy associated with type 2 diabetes mellitus E11.42 [place] [id number] [place] [address] [id number] Oct, Neutrophilia D72.9 [facility] [address] [facility] [id number] [place] [id number] Sep, Neutrophilia D72.9 ; Lymphocytosis D72.820 and Leukocytosis, unspecified type D72.829 [facility] [address] [facility] [id number] [place] [id number] Sep, Leukocytosis, unspecified type D72.829 ; Vaginal discharge N89.8 ; Cramp of toe R25.2 ; Sleep apnea in adult G47.30 ; Diabetic polyneuropathy associated with type 2 diabetes mellitus E11.42 ; Anxiety F41.9 ; Other chronic pain G89.29 ; Acquired hypothyroidism E03.9 ; Gastroparesis K31.84 ; PTSD (post- traumatic stress disorder) F43.10 ; Sinus congestion R09.81 and BMI 40.0-44.9, adult Z68.[id number] [place] [address] [id number] 14 Sep, 2017 Syncope, unspecified syncope type R55 ; BMI [...] R09.89 and Swelling of lower extremity M79.[address] [id number] [place] [id number] Aug, Carbuncle and furuncle of buttock L02.33 ; Radicular pain of lower extremity M54.10 ; Mixed stress and urge urinary incontinence N39.46 ; Nail ingrowing L60.0 and BMI 40.0-44.9, adult Z68.41 [facility] [address] [facility] [id number] [place] [address]87466[address] Aug, [address] [id number] [place] [id number] Aug, Diabetic polyneuropathy associated with type 2 diabetes mellitus E11.42 ; Anxiety F41.9 and Other chronic pain G89.29 [address]00565100[place] [id number] Jul, [place] [id number] [place] [address] Jul, [address] [id number] [place] [id number] Jul, Diabetic polyneuropathy associated with type 2 diabetes mellitus E11.42 ; Anxiety F41.9 and Other chronic pain G89.29 [address] [place] [address] [id number] Jul, BMI 40.0-44.9, adult Z68.41 ; Diabetes type 2, controlled E11.9 ; Sinus congestion R09.81 ; Sore throat J02.9 ; Gastroparesis K31.84 ; Mendez''s esophagus with dysplasia K22.719 ; Lumbago with sciatica, right side M54.41 and Other chronic pain G89.29 [place] [address] [place] [address] Jul, [address]00565100[place] [id number] Jun, Acute non-recurrent frontal sinusitis J01.10 ; Acute diffuse otitis externa of both ears H60.313 and BMI 40.0-44.9, adult Z68.[address] [id number] [place] [id number] Jun, Diabetic polyneuropathy associated with type 2 diabetes mellitus E11.42 ; Other chronic pain G89.29 and Anxiety F41.[address] [place] [address] [id number] Jun, [address] [place] [address] [id number] Apr, Anxiety F41.9 ; Gastroparesis K31.84 ; Other chronic pain G89.29 ; PTSD ( post-traumatic stress disorder) F43.10 ; Acquired hypothyroidism E03.9 ; Diabetic polyneuropathy associated with type 2 diabetes mellitus E11.42 ; Chronic seasonal allergic rhinitis, unspecified trigger J30.2 ; Urge incontinence of urine N39.41 ; Acute diffuse otitis externa of right ear H60.311 and BMI 45.0-49.9, adult Z68.42 [facility] [address] [id number] 14 Apr, 2017 Chronic seasonal allergic rhinitis, unspecified trigger J30.2 and Encounter for immunization Z23 [place] [id number] [place] [address] [id number] 11 Apr, 2017 Diabetic polyneuropathy associated with type 2 diabetes mellitus E11.42 ; Acute pain of right knee M25.561 and Post traumatic stress disorder (PTSD) F43.10 [facility] [id number] [place] [address] 33037403- 1468 Mar, [place] [id number] [place] [address] [id number] Mar, Well woman exam with routine gynecological exam Z01.419 ; Stress incontinence N39.3 ; High risk sexual behavior Z72.51 ; Screening breast examination Z12.31 and Nausea R11.0 [place] [id number] [place] [address] [id number] 14 Mar, 2017 Other chronic pain G89.29 ; Bladder leak R32 ; Sore throat J02.9 ; Post traumatic stress disorder (PTSD) F43.10 and Acute pain of right knee M25.561 [facility] [id number] [place] [address] [id number] Feb, [place] [id number] [place] [address] [id number] Feb, Acquired hypothyroidism E03.9 ; Diabetic polyneuropathy associated with type 2 diabetes mellitus E11.42 ; Other chronic pain G89.29 ; Diarrhea, unspecified type R19.7 ; GERD without esophagitis K21.9 ; Post traumatic stress disorder (PTSD) F43.10 ; Intentional self-harm by blunt object, subsequent encounter X79.XXXD and Acute pain of right knee M25.561 [facility] [address] [id number] [place] [id number] 10 Feb, 2017 Acquired hypothyroidism E03.9 [facility] [address]00565100[place] [id number] Jan, Acquired hypothyroidism E03.9 ; Diabetic polyneuropathy associated with type 2 diabetes mellitus E11.42 ; Other chronic pain G89.29 ; Diarrhea, unspecified type R19.7 ; GERD without esophagitis K21.9 ; Post traumatic stress disorder (PTSD) F43.10 ; Intentional self-harm by blunt object, subsequent encounter X79.XXXD and Acute pain of right knee M25.[address] [place] [address] [id number] 12 Jan, 2017 Acquired hypothyroidism E03.9 ; Diabetic polyneuropathy associated with type 2 diabetes mellitus E11.42 ; Other chronic pain G89.29 ; Diarrhea, unspecified type R19.7 ; GERD without esophagitis K21.9 ; Post traumatic stress disorder (PTSD) F43.10 and Intentional self-harm by blunt object, initial encounter X79.XXXA [address]00565100[place] [id number] Jan, [place] [id number] [place] [address] [id number] December, PTSD (post-traumatic stress disorder) F43.10 ; Gastroparesis due to secondary diabetes E13.43 ; Chronic diarrhea K52.9 ; Non-seasonal allergic rhinitis due to pollen J30.1 and Constipation by delayed colonic transit K59.01 [facility] [address] [facility] [id number] [place] [address] December, [place] [id number] [id number] December, Diabetic polyneuropathy associated with type 2 diabetes mellitus E11.[address] [place] [address] [id number] December, Diabetes type 2, uncontrolled E11.65 ; GERD without esophagitis K21.9 and PTSD (post-traumatic stress disorder) F43.[address] [id number] [place] [id number] Nov, Anxiety F41.9 [facility] [id number] [place] [id number] Nov, Diabetic polyneuropathy associated with type 2 diabetes mellitus E11.42 [facility] [id number] [place] [id number] Oct, Anxiety F41.9 [facility] [id number] [place] [address] [id number] Sep, Gastroparesis due to secondary diabetes E13.43 and Anxiety F41.9 [facility] [address]00565100[place] [address] Aug, [facility] [id number] [place] [address] [id number] Aug, Chronic constipation K59.09 and Diarrhea, unspecified type R19.7 [facility] [id number] [place] [address] [id number] Aug, Diabetic polyneuropathy associated with type 2 diabetes mellitus E11.42 [facility] [id number] [place] [id number] Aug, Gastroparesis K31.84 ; Diabetes type 2, uncontrolled E11.65 ; Gastric pain R10.9 ; Irritable bowel syndrome with both constipation and diarrhea K58.2 and Chronic constipation K59.00 [facility] [id number] [place] [id number] Aug, Dark stools R19.5 [facility] [id number] [place] [address] [id number] 10 Aug, 2016 Gastroparesis K31.84 and Chronic constipation K59.00 [facility] [id number] [place] [address] [id number] 09 Aug, 2016 Dark stools R19.5 ; Diabetes type 2, uncontrolled E11.65 ; Gastroparesis due to secondary diabetes E13.43 and Constipation by delayed colonic transit K59.01 [facility] [id number] [place] [id number] Aug, Anxiety F41.9 [facility] [address] [id number] [place] [id number] Aug, Nausea R11.0 ; Left foot pain M79.672 ; Pain in right knee M25.561 ; Low back pain M54.5 and Other chronic pain G89.29 [facility] [address]00565100[place] [address] Jul, [facility] [id number] [place] [address] [id number] Jul, [place] [address] [place] [address]- [address] Jul, PTSD (post-traumatic stress disorder) F43.10 [facility] [id number] [place] [id number] Jul, Anxiety F41.9 [place] [address] [address] [id number] [address] Jul, [address] [id number] [place] [id number] Jul, PTSD (post-traumatic stress disorder) F43.10 [facility] [id number] [place] [id number] Jul, Diabetes type 2, uncontrolled E11.65 ; Left foot pain M79.672 ; Toe pain, right M79.674 ; Low back pain M54.5 ; Other chronic pain G89.29 ; Pain in right knee M25.561 ; PTSD (post-traumatic stress disorder) F43.10 and Anxiety F41.9 [facility] [address] [facility] [id number] [place] [id number] Jul, [facility] [address]00565100[place] [id number] Jun, PTSD (post-traumatic stress disorder) F43.10 [facility] [id number] [place] [id number] Jun, [facility] [address] [id number] [address] Jun, [facility] [id number] [place] [id number] Jun, PTSD (post-traumatic stress disorder) F43.10 [facility] [id number] [place] [address] [id number] Jun, [facility] [id number] [place] [address] [id number] Jun, Cellulitis of right lower extremity L03.115 ; Other chronic pain G89.29 ; Pain in right knee M25.561 ; Pain in left knee M25.562 and Anxiety about health F41.8 [facility] [id number] [place] [address] [id number] May, Anxiety F41.9 [place] [id number] [place] [address] [id number] May, PTSD (post-traumatic stress disorder) F43.10 [place] [id number] [place] [address] [id number] May, Diabetes type 2, uncontrolled E11.65 ; Diabetic polyneuropathy associated with type 2 diabetes mellitus E11.42 ; Gastroparesis due to secondary diabetes E13.43 ; Anxiety F41.9 ; Other chronic pain G89.29 ; Pain in right knee M25.561 ; Pain in left knee M25.562 ; Acquired hypothyroidism E03.9 and Chronic constipation K59.00 [facility] [address] [id number] 2[address]3727[address] May, [facility] [id number] [place] [address] [id number] May, [facility] [address] [place] [address] [id number] Apr, [place] [id number] [place] [address] [id number] Apr, [facility] [id number] [place] [address] [id number] 4610 Apr, [facility] [id number] [place] [address] [id number] Apr, [facility] [address] [place] [address] 75487[place] [address]- [address] Apr, [facility] [id number] [place] [id number] Apr, Diabetes type 2, uncontrolled E11.65 ; Diabetic polyneuropathy associated with type 2 diabetes mellitus E11.42 ; Gastroparesis due to secondary diabetes E13.43 and Encounter for immunization Z23 [facility] [address] [id number] [place] [id number] Apr, Gastroparesis K31.84 and Diabetes type 2, controlled E11.9 [facility] [address] [id number] [place] [id number] Mar, Diabetes type 2, controlled E11.9 ; Chronic constipation K59.00 and Gastroparesis K31.84 [facility] [address] [id number] [place] [id number] Mar, [facility] [id number] [place] [address] [id number] Mar, Diabetes type 2, controlled E11.9 [facility] [address] [id number] [place] [id number] Mar, [facility] [address] [id number] [place] [id number] Feb, [facility] [id number] [place] [address] [id number] Feb, [facility] [address] [id number] [place] [id number] Feb, Diabetes type 2, controlled E11.9 [facility] [address] [id number] [place] [id number] Feb, [facility] [address] [id number] [place] [id number] Jan, [facility] [address] [id number] [place] [id number] Jan, [facility] [address] [id number] [place] [id number] Jan, Diabetes type 2, controlled E11.9 [facility] [address] [id number] [place], [place] [id number] December, [place] [id number] [place] [address] [id number] December, Diabetes type 2, uncontrolled E11.65 and Diabetes type 2, controlled E11.9 [place] [id number] [place] [address] [id number] December, [place] [id number] [place] [address] [id number] Nov, Wound of toenail, subsequent encounter S91.209D and Plantar fascia syndrome M72.[address] [id number] Nov, Ingrown toenail L60.[address] [id number] Nov, Wound of toenail, subsequent encounter S91.209D [place] [address] [place] [address] [id number] Nov, Tinea unguium B35.1 and Ingrowing nail L60.0 [address] [place] [id number] [place] [address] [id number] Nov, Ingrown toenail L60.0 [place] [address] [place] [address] [id number] 15 Nov, 2015 Cellulitis of right lower extremity L03.115 [address] [place] [address] [place] [address] [id number] Nov, Ingrown toenail L60.0 and Diabetes type 2, controlled E11.9 [place] [id number] [place] [address] [id number] Oct, [place] [id number] [place] [address] [id number] Oct, Anxiety F41.[address] [id number] Sep, [place] [id number] [place] [address] [id number] Sep, Elevated white blood cell count D72.829 and Multiple joint pain M25.50 [place]704[place] [id number] Sep, Diabetes type 2, uncontrolled E11.65 ; Onychomycosis B35.1 ; Skin candidiasis B37.2 and Anxiety F41.9 [facility] [address] [place] [address] [id number] Aug, [facility] [id number] [place] [address] [id number] Aug, [facility] [place] [place] [id number] [place] [address] [id number] Jul, Diabetes type 2, uncontrolled E11.65 [facility] [address] [id number] [place] [address] [id number] Jul, [facility] [place] [place] [id number] [place] [address] [id number] Jul, Diabetes type 2, uncontrolled E11.65 [facility] [address] [id number] [place] [address] [id number] Jul, [facility] [address] [place] [id number] [place] [address] [id number] Jun, [facility] [address]00565100[place] [address]- [address] Jun, [facility] [address] [place] [address] [id number] Jun, Diabetes type 2, uncontrolled E11.65 ; Chronic constipation K59.00 and Anxiety F41.9 [facility] [place] [address] [facility] [id number] [place] [id number] Jun, Plantar fascia syndrome M72.2 [facility] [address]00565100[place] [id number] May, [facility] [address] [place] [address] [id number] May, [facility] [address] [id number] [place] [address] [id number] May, Encounter for immunization Z23 ; Diabetes type 2, uncontrolled E11.65 and Depression with anxiety F41.8 [facility] [address] [id number] [place] [address] [id number] Apr, Chronic constipation 564.00 ; Insomnia, unspecified 780.52 ; Diabetes mellitus, type 2 250.00 ; PTSD (post-traumatic stress disorder) 309.81 and Anxiety and depression 300.00 [facility] [id number] [id number] Apr, [address] [place] [address] [id number] Apr, Anxiety and depression 300.00 and PTSD (post-traumatic stress disorder) 309.81 [facility] [address] [place] [address] [id number] Mar, [place] [id number] [place] [address] [id number] Mar, Follow up V67.9 ; Social anxiety disorder 300.23 and Acid reflux 530.81 [address] [id number] [place] [address] [id number] Feb, [place] [id number] [place] [address] [id number] Feb, [place] [id number] [place] [address] [id number] Feb, [place] [id number] [place] [address] [id number] Feb, [facility] [address] [address] Feb, [place] [id number] [place] [address] [id number] Feb, Unspecified hereditary and idiopathic peripheral neuropathy 356.9 ; Heartburn 787.1 ; Uncontrolled type 2 diabetes with neuropathy 250.62 ; Otitis externa 380.10 and HEP B (ADULT) DX V05.3 [address] [id number] [place] [address] [id number] Jan, [address] [id number] December, [facility] [address] [address] Nov, [facility] [place] [facility] [address] [facility] [id number] [place] [address]- [address]46 Nov, [facility] [place] [facility] [address] [facility] [id number] [place] [address]- 2546 Oct, [facility] [place] [facility] [address] [facility] [id number] [place] [address]- 2546 Oct, [facility] [address] [facility] [id number] [place] [id number] Oct, [facility] [place] [facility] [address] [facility] [id number] [place] [address]- 2546 Oct, [facility] [place] [facility] [address] [facility] [id number] [place] [address]- 2546 Oct, [facility] [place] [facility] [address] [facility] [id number] [place] [address]- 2546 Oct, [facility] [address] [facility] [id number] [place] [id number] Oct, [facility] [place] [facility] [address] [facility] [id number] [place] [address]- 2546 Oct, [facility] [address] [id number] [place] [id number] Oct, [facility] [place] [facility] [address] [facility] [id number] [place] [address]- 2546 Oct, [facility] [address] [id number] [place] [id number] Oct, [facility] [address] [id number] [place] [id number] Oct, [facility] [place] [facility] [address] [facility] [id number] [place] [address] Oct, [facility] [place] [facility] [address] [facility] [id number] [place] [address] Oct, [facility] [address] [id number] [place] [id number] Oct, [facility] [place] [facility] [address] [facility] [id number] [place] [address] Oct, [facility] [place] [facility] [address] [facility] [id number] [place] [address] Sep, [facility] [place] [facility] [address] [facility] [id number] [place] [address] Sep, [facility] [address] [facility] [id number] [place] [id number] Sep, [facility] [place] [facility] [address] [facility] [id number] [place] [address] Sep, [facility] [place] [facility] [address] [facility] [id number] [place] [address] Sep, [facility] [place] [facility] [address] [facility] [id number] [place] [address] Sep, [facility] [place] [facility] [address] [facility] [id number] [address] Aug, [facility] [place] [address] [facility] [id number] [place] [id number] Aug, [facility] [place] [facility] [address] [facility] [id number] [address] Aug, [facility] [place] [facility] [address] [facility] [id number] [place] [address] Aug, [facility] [place] [address] [facility] [id number] [place] [id number] Aug, [facility] [place] [facility] [address] [facility] [id number] [place] [address] Aug, [facility] [place] [facility] [address] [facility] [id number] [place] [address] Aug, [facility] [place] [facility] [address] [facility] [id number] [address] Aug, [facility] [address] [id number] [place] [id number] Aug, [facility] [place] [address] [facility] [id number] [place] [id number] Aug, [facility] [place] [facility] [address] [id number] [address] Aug, [facility] [place] [facility] [address] [facility] [id number] [place] [address] Aug, [facility] [address] [facility] [id number] [place] [id number] Jul, [facility] [place] [facility] [address] [facility] [id number] [place] [address] Jul, [facility] [address] [facility] [id number] [place] [id number] Jun, [facility] [place] [facility] [address] [facility] [id number] [place] [address] Jun, [facility] [address] [facility] [id number] [place] [id number] Jun, [facility] [place] [facility] [address] [facility] [id number] [place] [address] Jun, [facility] [address] [facility] [id number] [place] [address] Jun, [facility] [place] [facility] [address] [facility] [id number] [place] [address] Jun, [facility] [place] [facility] [address] [facility] [id number] [place] [address] May, [facility] [place] [facility] [address] [facility] [id number] [place] [address] May, [facility] [address] [facility] [id number] [place] [id number] May, [facility] [place] [facility] [address] [facility] [id number] [place] [address] May, [facility] [address] [facility] [id number] [place] [id number] Apr, [facility] [place] [facility] [address] [facility] [id number] [place] [address] Apr, [facility] [address] [facility] [id number] [place] [address] Apr, [facility] [address] [id number] [place] [id number] Apr, [facility] [place] [facility] [address] [id number] [place] [id number] [address] Apr, [facility] [place] [facility] [address] [facility] [id number] [place] [address] Apr, [facility] [address] [facility] [id number] [place] [id number] Apr, [facility] [place] [facility] [address] [id number] [place] [address] Apr, [facility] [address] [facility] [id number] [place] [id number] Apr, [facility] [place] [facility] [address] [facility] [id number] [place] [address] Apr, [facility] [address] [id number] [place] [id number] Feb, [facility] [place] [facility] [address] [facility] [id number] [place] [address] Feb, [facility] [address] [facility] [id number] [place] [id number] Feb, [facility] [place] [facility] [address] [id number] [place] [address] Feb, [facility] [place] [facility] [address] [id number] [place] [address] Jan, [facility] [place] [facility] [address] [facility] [id number] [place] [address] Jan, [facility] [place] [facility] [address] [facility] [id number] [place] [address] Jan, [facility] [address] [facility] [id number] [place] [id number] Jan, [facility] [place] [facility] [address] [facility] [id number] [place] [address]- [address]27 Jan, [facility] [place] [facility] [address] [id number] [place] [address] Jan, [facility] [address] [id number] [place] [id number] Jan, [facility] [place] [facility] [address] [facility] [id number] [place] [address] 2546 Jan, [facility] [address] [id number] [place] [id number] December, [facility] [place] [facility] [address] [id number] [place] [address] December, [facility] [address] [id number] [place] [id number] December, [facility] [address] [id number] [place] [id number] December, [facility] [address] [id number] [place] [id number] December, [facility] [place] [facility] [address] [facility] [id number] [address] December, [facility] [place] [facility] [address] [facility] [id number] [place] [address] December, [facility] [place] [facility] [address] [facility] [id number] [place] [address] December, [facility] [address] [facility] [id number] [place] [id number] Nov, [facility] [place] [facility] [address] [facility] [id number] [place] [address] 1336 Nov, [facility] [address] [facility] [id number] [place] [id number] Oct, [facility] [place] [facility] [address] [facility] [id number] [place] [address]- [address] Oct, [facility] [place] [facility] [address] [facility] [id number] [place] [address]- [address] Sep, [facility] [place] [facility] [address] [facility] [id number] [place] [address]- [address] Sep, [facility] [address] [id number] [place] [id number] Aug, [facility] [address] [id number] [place] [id number] Aug, [facility] [address] [facility] [id number] [place] [address] Aug, [facility] [address] [facility] [id number] [place] [address]45 Aug, [facility] [address] [id number] [place] [id number] Jul, [facility] [address] [facility] [id number] [place] [address] Jul, [facility] [address] [id number] [place] [id number] Jul, [facility] [address]00565100[place] [address] Jul, [facility] [address] [id number] [place] [id number] Jun, [facility] [address] [facility] [id number] [place] [address]40 Jun, [facility] [address] [id number] [place] [id number] Apr, [facility] [address] [id number] [place] [id number] Mar, [facility] [address] [id number] [place] [id number] Mar, [facility] [address] [id number] [place] [id number] Mar, [facility] [address] [id number] [place] [id number] Mar, [facility] [address] [id number] [place] [address] Feb, [facility] [address] [id number] [place] [id number] Jan, [facility] [address] [id number] [place] [id number] Jan, [facility] [address] [id number] [place] [id number] Jan, [facility] [place] [address] [id number] [place] [address] Jan, [facility] [place] [address] [id number] [place] [id number] December, [facility] [place] [address] [id number] [place] [id number] December, [facility] [address] [id number] [place] [id number] December, [facility] [address] [id number] [place] [address]- [address] Jul, [facility] [address] [id number] [place] [id number] Jul, [facility] [address] [id number] [place] [id number] Jul, [facility] [address] [id number] [place] [id number] Jul, [facility] [address] [id number] [place] [id number] Jul, [facility] [address]00565100[place] Jul, [facility] [place] [facility] [address] [facility] [id number] [address]- [address] Jul, [facility] [place] [facility] [address] [facility] [id number] [place] [address]- [address] Jul, [facility] [address] [id number] [place] [id number] Jun, [facility] [place] [facility] [address] [facility] [id number] [place] [address]- 7253 Jun, [facility] [place] [facility] [address] [facility] [id number] [place] [address]- [address]40 Jul, [facility] [place] [facility] [address]00565100[place] [address]- [address] Jul, [facility] [place] [facility] [address] [id number] [place] [address]- 9537 Jul, [facility] [place] [facility] [address] [id number] [place] [address]- 9648 Jul, [facility] [place] [facility] [address] [facility] [id number] [place] [address]- 5460 Jun, [facility] [place] [facility] [address] [id number] [place] [address]- 1727 Jun, [facility] [place] [facility] [address] [id number] [place] [address]- 4155 Jun, [facility] [place] [facility] [address] [id number] [place] [address]- 7528 Jun, [facility] [place] [facility] [address] [id number] [place] [address]- 6479 Jun, [facility] [place] [facility] [address] [id number] [place] [address]- 4973 May, [facility] [place] [facility] [address] [id number] [place] [address]- 8028 May, [facility] [place] [facility] [address] [facility] [id number] [place] [address]- 7579 May, [facility] [place] [facility] [address] [id number] [place] [address]- 9403 May, [facility] [place] [facility] [address] [id number] [place] [address]- [address] 16 Nov, 2009 [facility] [place] [facility] [address] [id number] [place] [address]- 1185 Jul, [facility] [place] [facility] [address] [id number] [place] [address]- 7549 Jun, [facility] [place] [facility] [address] [facility] [id number] [place] [address]- 5660 Jun, [facility] [place] [facility] [address] [id number] [address]- 5916 May, [facility] [id number] [address]- [address] May, [facility] [address]00565100[place] [address]- [address] May, [facility] [address]00565100[place] [address]- 8674 May, [facility] [id number] [address]- 1744 May, [facility] [id number] [place] [address]- [address]369 May, [facility] [address]00565100[place] [address]- [address] Apr, [facility] [address]00565100[place] [address]- 7947 Jan, IMMUNIZATIONS No Known Immunizations SOCIAL HISTORY Never Assessed REASON FOR VISIT Urinary Incontenence follow up, states med not working [facility] RN PLAN OF CARE Activity Details Follow Up 2 Weeks Reason:CHM Anxiety/ear/hearing VITAL SIGNS Height 62 in 2017-05-03 Weight 249.2 lbs 2017-05-03 Temperature 98.0 degrees Fahrenheit 2017-05-03 Heart Rate 82 bpm 2017-05-03 Respiratory Rate 18 2017-05-03 BMI 45.57 kg/m2 2017-05-03 Blood pressure systolic 110 mmHg 2017-05-03 Blood pressure diastolic 68 mmHg 2017-05-03 MEDICATIONS Medication Instructions Dosage Frequency Start Date End Date Duration Status Lyrica 150 MG Orally 3 times a day 1 capsule 8h Active Zofran 8 MG Orally Once a day as needed for nausea 1 tablet Active Metformin HCl 850 MG Orally twice a day 1 tablet with a meal 12h Jul, Active Toviaz 8 MG Orally Once a day 1 tablet 24h 26 Apr, 2017 May, 30 day(s) Active Voltaren 1 % Transdermal 2 times a day as directed 12h Active Glucometer 1 glucometer as directed Jan, Active Fluticasone Propionate 50 MCG/ACT Nasally Once a day 1 spray in each nostril 24h Active Ativan 0.5 MG Orally every 6 hrs 1 tablet as needed 6h Apr, 30 days Active Mobic 7.5 MG Orally twice a day 1 tablet 12h Jun, Active Prevacid 30 MG Orally Once a day 1 capsule 24h Active Vitamin D-3 1000 UNIT Orally Once a day 1 capsule 24h Active Blood Glucose Test Strip ... subcutaneously 4 times a day as directed 6h 16 Jan, 2016 Active Trulicity 1.5 MG/0.5ML Subcutaneous once weekly 0.5 ml Active TRUEplus Lancets 28G - USE TO CHECK BLOOD SUGAR FOUR (4) TIMES DAILY... Active Escitalopram Oxalate 20 mg Orally Once a day 1 tablet 24h Active Singulair 10 mg Orally Once a day 1 tablet in the evening 24h December, Active Levothyroxine Sodium 25 MCG Orally Once a day 1 tablet 24h Active Tramadol HCl 50 mg Orally every 6 hrs 1 tablet as needed 6h Active Linzess 145 MCG Orally Once a day (DX: chronic constipation/abd pain) 1 capsule May, Active Sucralfate 1 GM Orally twice per day 1 tablet on an empty stomach and crush and dissolve in water 30mins before taking Active Pen [place] 29G X 12MM subcutaneous 4 times a day Inject 6h Active Trulicity 1.5 MG/0.5ML Subcutaneous once weekly 0.5 ml 0 Active Ciprodex 0.3-0.1 % Otic Twice a day 4 drops into affected ear 12h Apr, 10 days Active RESULTS No Results PROCEDURES No [...]
--- OUTSIDE RECORDS SUMMARY | 2018-02-13 10:56 | XMS REPORT ---
Author Author DYLLAN GAMING Organization [facility] Address [address] [place] [address] Care Team Providers Care Timber Girdler Name Role Phone DYLLAN GAMING Unavailable PROBLEMS Type Condition ICD9-CM Code SKG69-IC Code Onset Dates Condition Status SNOMED Code Problem Gastric pain R10.9 Active 126707862 Problem GERD without esophagitis K21.9 Active 709536214 Problem Gastroparesis K31.84 Active 424020475 Problem Leukocytosis, unspecified type D72.829 Active 055436746 Problem Chronic constipation K59.00 Active 395927440 Problem Mixed hyperlipidemia E78.2 Active 488949431 Problem Mixed stress and urge urinary incontinence N39.46 Active 320257523 Problem Mendez''s esophagus with dysplasia K22.719 Active 364602632 Problem Sleep apnea in adult G47.30 Active 65726673 Problem Current moderate episode of major depressive disorder without prior episode F32.1 Active 29453723 Problem Diabetic polyneuropathy associated with type 2 diabetes mellitus E11.42 Active 96505536 Problem Other chronic pain G89.29 Active 04658203 Problem Anxiety F41.9 Active 91510471 Problem Diabetes type 2, controlled E11.9 Active 13759079 Problem Anxiety about health F41.8 Active 578257511 Problem Low back pain M54.5 Active 334200994 Problem Acquired hypothyroidism E03.9 Active 869550844 Problem Left foot pain M79.672 Active 01696889 Problem PTSD (post-traumatic stress disorder) F43.10 Active 58868729 Problem Irritable bowel syndrome with both constipation and diarrhea K58.2 Active 08210740 ALLERGIES Substance Reaction Event Type Date Status Sulfamethoxazole-Trimethoprim swelling Drug Allergy Jun, Active ENCOUNTERS Encounter Location Date Diagnosis [facility] [address] [facility] [id number] [address] Mar, [id number] [id number] Jan, BMI 40.0-44.9, adult Z68.41 ; Right foot pain M79.671 ; Irritable bowel syndrome with both constipation and diarrhea K58.2 ; Diabetic polyneuropathy associated with type 2 diabetes mellitus E11.42 ; Other chronic pain G89.29 ; Acquired hypothyroidism E03.9 and Leukocytosis, unspecified type D72.829 [address] [place] [address] [id number] December, Diabetes type 2, controlled E11.9 ; [...] ; Gastroparesis K31.84 and Acquired hypothyroidism E03.[address] [place] [address] [id number] December, Diabetic polyneuropathy associated with type 2 diabetes mellitus E11.42 ; Anxiety F41.9 and Other chronic pain G89.29 [facility] [address] [id number] [address] December, Onychomycosis B35.1 and Contusion of left foot, initial encounter S90.32XA [address]00565[address] [id number] Nov, Diabetic polyneuropathy associated with type 2 diabetes mellitus E11.42 ; Anxiety F41.9 and Other chronic pain G89.29 [place] [id number] [place] [address] [id number] Oct, Other chronic pain G89.29 ; Anxiety F41.9 and Diabetic polyneuropathy associated with type 2 diabetes mellitus E11.42 [address] [place] [address] [id number] Oct, Neutrophilia D72.9 [facility] [address] [facility] [id number] [place] [id number] Sep, Neutrophilia D72.9 ; Lymphocytosis D72.820 and Leukocytosis, unspecified type D72.829 [facility] [address] [facility] [id number] [id number] Sep, Leukocytosis, unspecified type D72.829 ; Vaginal discharge N89.8 ; Cramp of toe R25.2 ; Sleep apnea in adult G47.30 ; Diabetic polyneuropathy associated with type 2 diabetes mellitus E11.42 ; Anxiety F41.9 ; Other chronic pain G89.29 ; Acquired hypothyroidism E03.9 ; Gastroparesis K31.84 ; PTSD (post- traumatic stress disorder) F43.10 ; Sinus congestion R09.81 and BMI 40.0-44.9, adult Z68.[address] [id number] [id number] 14 Sep, 2017 Syncope, unspecified syncope type [...] R09.89 and Swelling of lower extremity M79.[address] [id number], [place] [id number] Aug, Carbuncle and furuncle of buttock L02.33 ; Radicular pain of lower extremity M54.10 ; Mixed stress and urge urinary incontinence N39.46 ; Nail ingrowing L60.0 and BMI 40.0-44.9, adult Z68.41 [facility] [address] [facility] [id number], [place] [address] Aug, [address] [id number], [place] [id number] Aug, Diabetic polyneuropathy associated with type 2 diabetes mellitus E11.42 ; Anxiety F41.9 and Other chronic pain G89.29 [address]65[address] [id number] Jul, [facility] [id number] [place] [address] Jul, [address] [id number] [id number] Jul, Diabetic polyneuropathy associated with type 2 diabetes mellitus E11.42 ; Anxiety F41.9 and Other chronic pain G89.29 [address] [place] [address] [id number] Jul, BMI 40.0-44.9, adult Z68.41 ; Diabetes type 2, controlled E11.9 ; Sinus congestion R09.81 ; Sore throat J02.9 ; Gastroparesis K31.84 ; Mendez''s esophagus with dysplasia K22.719 ; Lumbago with sciatica, right side M54.41 and Other chronic pain G89.29 [place] [address]00565100[place], [place] [address] Jul, [address] [id number], [place] [id number] Jun, Acute non-recurrent frontal sinusitis J01.10 ; Acute diffuse otitis externa of both ears H60.313 and BMI 40.0-44.9, adult Z68.[address] [id number], [place] [id number] Jun, Diabetic polyneuropathy associated with type 2 diabetes mellitus E11.42 ; Other chronic pain G89.29 and Anxiety F41.9 [address] [place] [address] [id number] Jun, [address] [place] [address] [id number] Apr, Anxiety F41.9 ; Gastroparesis K31.84 ; Other chronic pain G89.29 ; PTSD ( post-traumatic stress disorder) F43.10 ; Acquired hypothyroidism E03.9 ; Diabetic polyneuropathy associated with type 2 diabetes mellitus E11.42 ; Chronic seasonal allergic rhinitis, unspecified trigger J30.2 ; Urge incontinence of urine N39.41 ; Acute diffuse otitis externa of right ear H60.311 and BMI 45.0-49.9, adult Z68.42 [facility] [id number] [place] [address] [id number] 14 Apr, 2017 Chronic seasonal allergic rhinitis, unspecified trigger J30.2 and Encounter for immunization Z23 [place] [id number] [place] [address] [id number] 11 Apr, 2017 Diabetic polyneuropathy associated with type 2 diabetes mellitus E11.42 ; Acute pain of right knee M25.561 and Post traumatic stress disorder (PTSD) F43.10 [facility] [id number] [place] [id number] Mar, [address] [id number] [place] [address] [id number] Mar, Well woman exam with routine gynecological exam Z01.419 ; Stress incontinence N39.3 ; High risk sexual behavior Z72.51 ; Screening breast examination Z12.31 and Nausea R11.0 [place] [id number] [place] [address] [id number] 14 Mar, 2017 Other chronic pain G89.29 ; Bladder leak R32 ; Sore throat J02.9 ; Post traumatic stress disorder (PTSD) F43.10 and Acute pain of right knee M25.561 [facility] [id number] [place] [address] [id number] Feb, [place] [id number] [place] [address] [id number] Feb, Acquired hypothyroidism E03.9 ; Diabetic polyneuropathy associated with type 2 diabetes mellitus E11.42 ; Other chronic pain G89.29 ; Diarrhea, unspecified type R19.7 ; GERD without esophagitis K21.9 ; Post traumatic stress disorder (PTSD) F43.10 ; Intentional self-harm by blunt object, subsequent encounter X79.XXXD and Acute pain of right knee M25.561 [facility] [address] [id number], [place] [id number] 10 Feb, 2017 Acquired hypothyroidism E03.9 [facility] [id number], [place] [id number] Jan, Acquired hypothyroidism E03.9 ; Diabetic polyneuropathy associated with type 2 diabetes mellitus E11.42 ; Other chronic pain G89.29 ; Diarrhea, unspecified type R19.7 ; GERD without esophagitis K21.9 ; Post traumatic stress disorder (PTSD) F43.10 ; Intentional self-harm by blunt object, subsequent encounter X79.XXXD and Acute pain of right knee M25.561 [address] [place] [address] [id number] 12 Jan, 2017 Acquired hypothyroidism E03.9 ; Diabetic polyneuropathy associated with type 2 diabetes mellitus E11.42 ; Other chronic pain G89.29 ; Diarrhea, unspecified type R19.7 ; GERD without esophagitis K21.9 ; Post traumatic stress disorder (PTSD) F43.10 and Intentional self-harm by blunt object, initial encounter X79.XXXA [address]00565[address] [id number] Jan, [address] [place] [address] [id number] December, PTSD (post-traumatic stress disorder) F43.10 ; Gastroparesis due to secondary diabetes E13.43 ; Chronic diarrhea K52.9 ; Non-seasonal allergic rhinitis due to pollen J30.1 and Constipation by delayed colonic transit K59.01 [facility] [address] [facility] [id number], [place] [address] December, [place] [id number] [id number] December, Diabetic polyneuropathy associated with type 2 diabetes mellitus E11.42 [address]00565100[place], [place] [id number] December, Diabetes type 2, uncontrolled E11.65 ; GERD without esophagitis K21.9 and PTSD (post-traumatic stress disorder) F43.10 [place] [id number] [id number] Nov, Anxiety F41.9 [facility] [place] [id number] [place] [address] [id number] Nov, Diabetic polyneuropathy associated with type 2 diabetes mellitus E11.42 [facility] [id number], [place] [id number] Oct, Anxiety F41.9 [facility] [place] [id number] [place] [address] [id number] Sep, Gastroparesis due to secondary diabetes E13.43 and Anxiety F41.9 [facility] [address]00565100[place] [address] Aug, [facility] [place] [id number] [place] [address] [id number] Aug, Chronic constipation K59.09 and Diarrhea, unspecified type R19.7 [facility] [place] [id number] [place] [address] [id number] Aug, Diabetic polyneuropathy associated with type 2 diabetes mellitus E11.42 [facility] [place] [id number], [place] [id number] Aug, Gastroparesis K31.84 ; Diabetes type 2, uncontrolled E11.65 ; Gastric pain R10.9 ; Irritable bowel syndrome with both constipation and diarrhea K58.2 and Chronic constipation K59.00 [facility] [place] [id number], [place] [id number] Aug, Dark stools R19.5 [facility] [id number] [place] [address] [id number] 10 Aug, 2016 Gastroparesis K31.84 and Chronic constipation K59.00 [facility] [id number] [place] [address] [id number] 09 Aug, 2016 Dark stools R19.5 ; Diabetes type 2, uncontrolled E11.65 ; Gastroparesis due to secondary diabetes E13.43 and Constipation by delayed colonic transit K59.01 [facility] [place] [id number], [place] [id number] Aug, Anxiety F41.9 [facility] [id number], [place] [id number] Aug, Nausea R11.0 ; Left foot pain M79.672 ; Pain in right knee M25.561 ; Low back pain M54.5 and Other chronic pain G89.29 [facility] [address]00565100[place], [place] [address] Jul, [facility] [id number] [place] [address] [id number] Jul, [place] [address] [place] [address] Jul, PTSD (post-traumatic stress disorder) F43.10 [facility] [id number], [place] [id number] Jul, Anxiety F41.9 [place] [address] [id number], [place] [address] Jul, [address] [id number], [place] [id number] Jul, PTSD (post-traumatic stress disorder) F43.10 [address]00565100[place] [id number] Jul, Diabetes type 2, uncontrolled E11.65 ; Left foot pain M79.672 ; Toe pain, right M79.674 ; Low back pain M54.5 ; Other chronic pain G89.29 ; Pain in right knee M25.561 ; PTSD (post-traumatic stress disorder) F43.10 and Anxiety F41.9 [facility] [address] [facility] [id number], [place] [id number] Jul, [facility] [address]00565100[place], [place] [id number] Jun, PTSD (post-traumatic stress disorder) F43.10 [facility] [id number], [place] [id number] Jun, [facility] [address] [id number], [place] [address] Jun, [place] [id number], [place] [id number] Jun, PTSD (post-traumatic stress disorder) F43.10 [facility] [address] [id number] [place] [address] [id number] Jun, [facility] [address] [id number] [place] [address] [id number] Jun, Cellulitis of right lower extremity L03.115 ; Other chronic pain G89.29 ; Pain in right knee M25.561 ; Pain in left knee M25.562 and Anxiety about health F41.8 [facility] [address] [id number] [place] [address] [id number] May, Anxiety F41.9 [facility] [address] [id number] [place] [address] [id number] May, PTSD (post-traumatic stress disorder) F43.10 [facility] [address] [id number] [place] [address] [id number] May, Diabetes type 2, uncontrolled E11.65 ; Diabetic polyneuropathy associated with type 2 diabetes mellitus E11.42 ; Gastroparesis due to secondary diabetes E13.43 ; Anxiety F41.9 ; Other chronic pain G89.29 ; Pain in right knee M25.561 ; Pain in left knee M25.562 ; Acquired hypothyroidism E03.9 and Chronic constipation K59.00 [facility] [id number] [place] [address] [id number]- 2184 May, [facility] [id number] [place] [address] [id number] May, [facility] [id number] [place] [address] [id number] Apr, [facility] [id number] [place] [address] [id number] Apr, [facility] [id number] [place] [address] [id number]- 4108 Apr, [facility] [id number] [place] [address] [id number] Apr, [facility] [address] [place] [address] Apr, [facility] [place] [id number] [place] [id number] Apr, Diabetes type 2, uncontrolled E11.65 ; Diabetic polyneuropathy associated with type 2 diabetes mellitus E11.42 ; Gastroparesis due to secondary diabetes E13.43 and Encounter for immunization Z23 [facility] [place] [address] [id number] [place] [id number] Apr, Gastroparesis K31.84 and Diabetes type 2, controlled E11.9 [facility] [place] [address] [id number] [place] [id number] Mar, Diabetes type 2, controlled E11.9 ; Chronic constipation K59.00 and Gastroparesis K31.84 [facility] [place] [address] [id number] [place] [id number] Mar, [facility] [place] [id number] [place] [address] [id number] Mar, Diabetes type 2, controlled E11.9 [facility] [place] [address] [id number] [place] [id number] Mar, [facility] [place] [address] [id number], [place] [id number] Feb, [facility] [place] [id number] [place] [address] [id number] Feb, [facility] [place] [address] [id number] [place] [id number] Feb, Diabetes type 2, controlled E11.9 [facility] [place] [address] [id number], [place] [id number] Feb, [facility] [address] [id number], [place] [id number] Jan, [facility] [place] [address] [id number] [place] [id number] Jan, [facility] [place] [address] [id number] [place] [id number] Jan, Diabetes type 2, controlled E11.9 [facility] [place] [address] [id number], [place] [id number] December, [facility] [place] [id number] [place] [address] [id number] December, Diabetes type 2, uncontrolled E11.65 and Diabetes type 2, controlled E11.9 [place] [id number] [place] [address] [id number] December, [address] [id number] Nov, Wound of toenail, subsequent encounter S91.209D and Plantar fascia syndrome M72.[address] [id number] Nov, Ingrown toenail L60.[address] [id number] Nov, Wound of toenail, subsequent encounter S91.209D [place] [address] [place] [address] [id number] Nov, Tinea unguium B35.1 and Ingrowing nail L60.0 [place] [address] [place] [address] [id number] Nov, Ingrown toenail L60.[address] [id number] 15 Nov, 2015 Cellulitis of right lower extremity L03.115 [place] [address] [place] [address] [id number] Nov, Ingrown toenail L60.0 and Diabetes type 2, controlled E11.9 [place] [address] [place] [address] [id number] Oct, [place] [address] [place] [address] [id number] Oct, Anxiety F41.[address] [id number] Sep, [address] [id number] Sep, Elevated white blood cell count D72.829 and Multiple joint pain M25.[address] [place] [id number] Sep, Diabetes type 2, uncontrolled E11.65 ; Onychomycosis B35.1 ; Skin candidiasis B37.2 and Anxiety F41.9 [facility] [place] [id number] [place] [address] [id number] Aug, [facility] [place] [id number] [place] [address] [id number] Aug, [facility] [place] [id number] [place] [address] [id number] Jul, Diabetes type 2, uncontrolled E11.65 [facility] [place] [id number] [place] [address] [id number] Jul, [facility] [place] [id number] [place] [address] [id number] Jul, Diabetes type 2, uncontrolled E11.65 [facility] [place] [id number] [place] [address] [id number] Jul, [facility] [place] [id number] [place] [address] [id number] Jun, [facility] [address] [place] [address]27[address]- [address] Jun, [facility] [place] [id number] [place] [address] [id number] Jun, Diabetes type 2, uncontrolled E11.65 ; Chronic constipation K59.00 and Anxiety F41.9 [facility] [place] [address] [facility] [address] [id number], [place] [id number] Jun, Plantar fascia syndrome M72.2 [facility] [place] [address] [place] [address] [id number] May, [facility] [address] [place] [address] [id number] May, [facility] [place] [id number] [place] [address] [id number] May, Encounter for immunization Z23 ; Diabetes type 2, uncontrolled E11.65 and Depression with anxiety F41.8 [facility] [place] [id number] [place] [address] [id number] Apr, Chronic constipation 564.00 ; Insomnia, unspecified 780.52 ; Diabetes mellitus, type 2 250.00 ; PTSD (post-traumatic stress disorder) 309.81 and Anxiety and depression 300.00 [facility] [address] [id number] [id number] Apr, [facility] [address] [place] [address] [id number] Apr, Anxiety and depression 300.00 and PTSD (post-traumatic stress disorder) 309.81 [facility] [address] [place] [address] [id number] Mar, [place] [id number] [place] [address] [id number] Mar, Follow up V67.9 ; Social anxiety disorder 300.23 and Acid reflux 530.81 [place] [id number] [place] [address] [id number] Feb, [place] [id number] [place] [address] [id number] Feb, [facility] [id number] [place] [address] [id number] Feb, [place] [id number] [place] [address] [id number] Feb, [facility] [id number] [place] [address] 97178- 25[address] Feb, [place] [id number] [place] [address] [id number] Feb, Unspecified hereditary and idiopathic peripheral neuropathy 356.9 ; Heartburn 787.1 ; Uncontrolled type 2 diabetes with neuropathy 250.62 ; Otitis externa 380.10 and HEP B (ADULT) DX V05.3 [place] [id number] [place] [address] [id number] Jan, [place] [id number] [place] [address] [id number] December, [facility] [address] [address] Nov, [facility] [address] [id number] [place] [address]- 25[address] Nov, [facility] [place] [facility] [address] [facility] [id number] [place] [address]- 2546 Oct, [facility] [place] [facility] [address] [facility] [id number] [place] [address]- 2546 Oct, [facility] [address] [facility] [id number], [place] [id number] Oct, [facility] [place] [facility] [address] [facility] [id number] [place] [address]- 2546 Oct, [facility] [place] [facility] [address] [facility] [id number] [place] [address] Oct, [facility] [place] [facility] [address] [facility] [id number] [place] [address] Oct, [facility] [address] [facility] [id number][place] [id number] Oct, [facility] [place] [facility] [address] [facility] [id number] [address] Oct, [facility] [address] [id number][place] [id number] Oct, [facility] [place] [facility] [address] [facility] [id number], [place] [address] Oct, [facility] [address] [id number][place] [id number] Oct, [facility] [address] [id number][place] [id number] Oct, [facility] [place] [facility] [address] [facility] [id number], [place] [address] Oct, [facility] [place] [facility] [address] [facility] [id number], [place] [address] Oct, [facility] [address] [id number][place] [id number] Oct, [facility] [place] [facility] [address] [facility] [id number], [place] [address] Oct, [facility] [place] [facility] [address] [address] [id number], [place] [address] Sep, [facility] [place] [facility] [address] [facility] [id number] [place] [address] Sep, [facility] [place] [address] [facility] [id number][place] [id number] Sep, [facility] [place] [facility] [address] [facility] [id number] [place] [address] 4[address] Sep, [facility] [place] [facility] [address] [facility] [id number] [place] [address] 2969 Sep, [facility] [place] [facility] [address] [facility] [id number] [place] [address] Sep, [facility] [place] [facility] [address] [facility] [id number], [place] [address] Aug, [facility] [place] [address] [facility] [id number], [place] [id number] Aug, [facility] [place] [facility] [address] [facility] [id number], [place] [address] Aug, [facility] [place] [facility] [address] [facility] [id number], [place] [address] Aug, [facility] [place] [address] [facility] [id number], [place] [id number] Aug, [facility] [place] [facility] [address] [facility] [id number], [place] [address]73 Aug, [facility] [place] [facility] [address] [facility] [id number], [place] [address] Aug, [facility] [place] [facility] [address] [facility] [id number], [place] [address] Aug, [facility] [place] [address] [id number], [place] [id number] Aug, [facility] [place] [address] [id number][place] [id number] Aug, [facility] [place] [facility] [address] [id number], [place] [address] Aug, [facility] [place] [facility] [address] [facility] [id number], [place] [address] Aug, [facility] [place] [address] [facility] [id number], [place] [address] Jul, [facility] [place] [facility] [address] [facility] [id number] [place] [address]396 Jul, [facility] [place] [address] [facility] [id number] [place] [id number] Jun, [facility] [place] [facility] [address] [facility] [id number] [place] [address] 7098 Jun, [facility] [place] [address] [facility] [id number], [place] [id number] Jun, [facility] [place] [facility] [address] [facility] [id number], [place] [address]96 Jun, [facility] [place] [address] [facility] [id number][place] [id number] Jun, [facility] [place] [facility] [address] [facility] [id number][place] [address] Jun, [facility] [place] [facility] [address] [facility] [id number], [place] [address] 38[address] May, [facility] [place] [facility] [address] [facility] [id number], [place] [address] May, [facility] [place] [address] [facility] [id number], [place] [id number] May, [facility] [place] [facility] [address] [facility] [id number] [place] [address] 1622 May, [facility] [place] [address] [facility] [id number], [place] [id number] Apr, [facility] [place] [facility] [address] [facility] [id number], [place] [address] 2546 Apr, [facility] [address] [facility] [id number], [place] [id number] Apr, [facility] [address] [facility] [id number] [place] [id number] Apr, [facility] [place] [facility] [address] [facility] [id number] [place] [address] Apr, [facility] [place] [facility] [address] [facility] [id number] [place] [address] 1269 Apr, [facility] [address] [facility] [id number] [place] [id number] Apr, [facility] [place] [facility] [address] [id number] [place] [address] 1192 Apr, [facility] [address] [facility] [id number] [place] [id number] Apr, [facility] [place] [facility] [address] [facility] [id number] [place] [address] 7585 Apr, [facility] [address] [facility] [id number] [place] [id number] Feb, [facility] [place] [facility] [address] [facility] [id number], [place] [address]12 Feb, [facility] [place] [address] [facility] [id number] [place] [id number] Feb, [facility] [place] [facility] [address] [id number], [place] [address]073 Feb, [facility] [place] [facility] [address] [facility] [id number], [place] [address] 5847 Jan, [facility] [place] [facility] [address] [facility] [id number], [place] [address] 8[address] Jan, [facility] [place] [facility] [address] [facility] [id number] [place] [address]- 8976 Jan, [facility] [place] [address] [facility] [id number][place] [id number] Jan, [facility] [place] [facility] [address] [facility] [id number] [place] [address] 3793 Jan, [facility] [place] [facility] [address] [facility] [id number] [place] [address]- 4696 Jan, [facility] [place] [address] [id number] [place] [id number] Jan, [facility] [place] [facility] [address] [facility] [id number] [place] [address]- 3356 Jan, [facility] [place] [address] [id number] [place] [id number] December, [facility] [place] [facility] [address] [id number] [place] [address] 4786 December, [facility] [place] [address] [id number] [place] [id number] December, [facility] [place] [address] [id number] [place] [id number] December, [facility] [place] [address] [id number] [place] [id number] December, [facility] [place] [facility] [address] [facility] [id number] [place] [address]- 3926 December, [facility] [place] [facility] [address] [facility] [id number] [place] [address]- 4776 December, [facility] [place] [facility] [address] [facility] [id number], [place] [address] 3636 December, [facility] [address] [facility] [id number] [place] [id number] Nov, [facility] [place] [facility] [address] [facility] [id number], [place] [address] 2036 Nov, [facility] [place] [address] [facility] [id number] [place] [id number] Oct, [facility] [place] [facility] [address] [facility] [id number] [place] [address]- 9506 Oct, [facility] [place] [facility] [address] [facility] [id number] [place] [address]- 0296 Sep, [facility] [place] [facility] [address] [facility] [id number], [place] [address]- 7800 Sep, [facility] [place] [address] [id number] [place] [id number] Aug, [facility] [place] [address] [id number] [place] [id number] Aug, [facility] [address] [facility] [id number], [place] [address]- 3107 Aug, [facility] [address] [facility] [id number], [place] [address]- 9338 Aug, [facility] [place] [address] [id number], [place] [id number] Jul, [facility] [address] [facility] [id number], [place] [address]- 8901 Jul, [facility] [place] [address] [id number], [place] [id number] Jul, [facility] [address]00565100[place], [place] [address] Jul, [facility] [address] [id number], [place] [id number] Jun, [facility] [address] [facility] [id number], [place] [address]- 5827 Jun, [facility] [place] [address] [id number], [place] [id number] Apr, [facility] [address] [id number], [place] [id number] Mar, [facility] [address] [id number], [place] [id number] Mar, [facility] [address] [id number] [place] [address] Mar, [facility] [place] [address] [id number] [place] [address] Mar, [facility] [address] [id number] [place] [id number] Feb, [facility] [address] [id number], [place] [id number] Jan, [facility] [place] [address] [id number] [place] [address] Jan, [facility] [place] [address] [id number] [place] [id number] Jan, [facility] [place] [address] [id number] [place] [address] Jan, [facility] [place] [address] [id number] [place] [id number] December, [facility] [place] [address] [id number] [place] [address]303923 December, [facility] [place] [address] [id number] [place] [address] December, [facility] [address] [id number], [place] [address]- 1776 Jul, [facility] [place] [address] [id number] [place] [id number] Jul, [facility] [place] [address] [id number] [place] [id number] Jul, [facility] [place] [address] [id number] [place] [id number] Jul, [facility] [address] [id number] [place] [id number] Jul, [facility] [place] [facility] [address]00565100[place], [place] [address]- [address]24 Jul, [facility] [place] [facility] [address]00565100[place], [place] [address]- 5040 Jul, [facility] [place] [facility] [address] [facility] [id number], [place] [address]- 7776 Jul, [facility] [address] [id number] [place] [id number] Jun, [facility] [place] [facility] [address] [facility] [id number], [place] [address]- 7014 Jun, [facility] [place] [facility] [address] [facility] [id number], [place] [address]- 8232 Jul, [facility] [place] [facility] [address] [id number], [place] [address]- 1636 Jul, [facility] [place] [facility] [address] [id number] [place] [address]- 5244 Jul, [facility] [place] [facility] [address] [id number] [place] [address]- 8166 Jul, [facility] [place] [facility] [address] [id number] [place] [address]- 9250 Jun, [facility] [place] [facility] [address] [id number] [place] [address]- 3767 Jun, [facility] [place] [facility] [address] [id number] [place] [address]- 2521 Jun, [facility] [place] [facility] [address] [id number] [place] [address]- 7059 Jun, [facility] [place] [facility] [address] [id number] [place] [address]- 1996 Jun, [facility] [place] [facility] [address] [id number], [place] [address]- 4286 May, [facility] [place] [facility] [address] [id number] [place] [address]- 3268 May, [facility] [place] [facility] [address] [id number], [place] [address]- 1022 May, [facility] [place] [facility] [address] [id number], [place] [address]- 3513 May, [facility] [place] [facility] [address] [id number], [place] [address]- 7433 16 Nov, 2009 [facility] [place] [facility] [address] [id number] [place] [address]- 2079 Jul, [facility] [place] [facility] [address] [id number], [place] [address]- 0652 Jun, [facility] [place] [facility] [address] [id number], [place] [address]- 9869 Jun, [facility] [place] [facility] [address] [id number]- 8595 May, [facility] [address]00565100[place]- 4087 May, [facility] [address]00565100[place] [address]- 3406 May, [facility] [id number] [place] [address]16- 9412 May, [facility] [id number] [place] [address]49[address]- 5290 May, [facility] [id number] [place] [address] 093846- 6014 May, [facility] [id number] [place] [address] 090742- 3553 Apr, [facility] [id number] [place] [address] 9[address]898- 4799 Jan, IMMUNIZATIONS Vaccine Route Administration Date Status SOLUMEDROL (UP TO 125 MG) IM Intramuscular Jun 24, 2017 Administered SOCIAL HISTORY Never Assessed REASON FOR VISIT Pt c/o head and ear ache started about 10 days ago, cough/congestion started about 4 days ago Marlene MISHRA PLAN OF CARE Activity Details Follow Up 3 Weeks. if s/s not improving with PCP or in Clinic Reason:[facility] DM VITAL SIGNS Height 62 in 2017-06-24 Weight 235.2 lbs 2017-06-24 Temperature 98.2 degrees Fahrenheit 2017-06-24 Heart Rate 108 bpm 2017-06-24 Respiratory Rate 20 2017-06-24 BMI 43.01 kg/m2 2017-06-24 Blood pressure systolic 122 mmHg 2017-06-24 Blood pressure diastolic 68 mmHg 2017-06-24 MEDICATIONS Medication Instructions Dosage Frequency Start Date End Date Duration Status TRUEplus Lancets 28G - USE TO CHECK BLOOD SUGAR FOUR (4) TIMES DAILY... Active Zofran 8 MG Orally Once a day as needed for nausea 1 tablet Active Lexapro 20 MG TAKE ONE (1) TABLET BY MOUTH DAILY... Active Blood Glucose Test Strip ... subcutaneously 4 times a day as directed 6h Jan, Active Singulair 10 mg Orally Once a day 1 tablet in the evening 24h December, Active Metformin HCl 850 MG Orally twice a day 1 tablet with a meal 12h Jul, Active Trulicity 1.5 MG/0.5ML Subcutaneous once weekly 0.5 ml Active Ativan 0.5 MG Orally every 6 hrs must last 30 days 1 tablet as needed Apr, 0 days Active Ciprodex 0.3-0.1 % Otic Twice a day 4 drops into affected ear 12h Jun, 07 days Active Trulicity 1.5 MG/0.5ML Subcutaneous once weekly 0.5 ml 0 Active Linzess 145 MCG Orally Once a day (DX: chronic constipation/abd pain) 1 capsule May, Active Voltaren 1 % USE (2 GRAMS) TRANSDERMALLY TWICE DAILY DIRECTED... Active Pen Austin 29G X 12MM subcutaneous 4 times a day Inject 6h Active Glucometer 1 glucometer as directed Jan, Active Mobic 7.5 MG Orally twice a day 1 tablet 12h Jun, Active Vitamin D-3 1000 UNIT Orally Once a day 1 capsule 24h Active Lyrica 150 MG Orally 3 times a day 1 capsule 8h 0 days Active Fluticasone Propionate 50 MCG/ACT Nasally Once a day 1 spray in each nostril 24h Active Escitalopram Oxalate 20 mg Orally Once a day 1 tablet 24h Active Levothyroxine Sodium 25 MCG Orally Once a day 1 tablet 24h Active Amoxicillin-Pot Clavulanate 875-125 MG Orally every 12 hrs 1 tablet 12h Jun, Jun, 10 day(s) Active Promethazine HCl 25 MG Orally 3 times a day 1 tablet as needed 8h 0 Active Toviaz 8 MG Orally Once a day 1 tablet 24h 30 Active Prevacid 30 MG Orally Once a day 1 capsule 24h Active Prevacid 30 MG Orally Once a day 1 capsule 24h 0 Active Sucralfate 1 GM Orally twice per day 1 tablet on an empty stomach and crush and dissolve in water 30mins before taking Active Ciprodex 0.3-0.1 % Otic Twice a day 4 drops into affected ear 12h Apr, 10 days Active RESULTS No Results PROCEDURES Procedure Date Ordered Result Body Site SOLUMEDROL (UP TO 125 MG) Jun 24, 2017 THER/PROPH/DIAG INJ, SC/IM Jun 24, 2017 INSTRUCTIONS MEDICATIONS ADMINISTERED No Known Medications MEDICAL [...]
--- OUTSIDE RECORDS SUMMARY | 2018-02-13 10:57 | XMS REPORT ---
Author Author DYLLAN GAMING Organization [facility] Address [address] [place] [address] Care Team Providers Care Respiratory Therapy Instructor Name Role Phone DYLLAN GAMING Unavailable PROBLEMS Type Condition ICD9-CM Code NGL21-NA Code Onset Dates Condition Status SNOMED Code Problem Gastric pain R10.9 Active 762905472 Problem GERD without esophagitis K21.9 Active 774654472 Problem Gastroparesis K31.84 Active 817889637 Problem Leukocytosis, unspecified type D72.829 Active 158882995 Problem Chronic constipation K59.00 Active 992707662 Problem Mixed hyperlipidemia E78.2 Active 438925086 Problem Mixed stress and urge urinary incontinence N39.46 Active 525587965 Problem Mendez''s esophagus with dysplasia K22.719 Active 319115207 Problem Sleep apnea in adult G47.30 Active 43042126 Problem Current moderate episode of major depressive disorder without prior episode F32.1 Active 96147452 Problem Diabetic polyneuropathy associated with type 2 diabetes mellitus E11.42 Active 37594262 Problem Other chronic pain G89.29 Active 38133455 Problem Anxiety F41.9 Active 77611158 Problem Diabetes type 2, controlled E11.9 Active 06326609 Problem Anxiety about health F41.8 Active 187221041 Problem Low back pain M54.5 Active 287132122 Problem Acquired hypothyroidism E03.9 Active 967743145 Problem Left foot pain M79.672 Active 62881670 Problem PTSD (post-traumatic stress disorder) F43.10 Active 08863082 Problem Irritable bowel syndrome with both constipation and diarrhea K58.2 Active 10999508 ALLERGIES Substance Reaction Event Type Date Status Sulfamethoxazole-Trimethoprim swelling Drug Allergy Jul, Active ENCOUNTERS Encounter Location Date Diagnosis [facility] [place] [facility] [address] [facility] [id number] [address] Mar, [id number] [address] Jan, BMI 40.0-44.9, adult Z68.41 ; Right foot pain M79.671 ; Irritable bowel syndrome with both constipation and diarrhea K58.2 ; Diabetic polyneuropathy associated with type 2 diabetes mellitus E11.42 ; Other chronic pain G89.29 ; Acquired hypothyroidism E03.9 and Leukocytosis, unspecified type D72.829 [address] [place] [address] [id number] December, Diabetes type 2, controlled E11.9 ; [...] ; Gastroparesis K31.84 and Acquired hypothyroidism E03.[address] [place] [address] [id number] December, Diabetic polyneuropathy associated with type 2 diabetes mellitus E11.42 ; Anxiety F41.9 and Other chronic pain G89.29 [facility] [place] [facility] [address] [id number] [address] December, Onychomycosis B35.1 and Contusion of left foot, initial encounter S90.32XA [address]100[place] [id number] Nov, Diabetic polyneuropathy associated with type 2 diabetes mellitus E11.42 ; Anxiety F41.9 and Other chronic pain G89.29 [address] [address] [place] [address] [id number] Oct, Other chronic pain G89.29 ; Anxiety F41.9 and Diabetic polyneuropathy associated with type 2 diabetes mellitus E11.42 [address] [place] [address] [id number] Oct, Neutrophilia D72.9 [facility] [address] [facility] [id number] [place] [id number] Sep, Neutrophilia D72.9 ; Lymphocytosis D72.820 and Leukocytosis, unspecified type D72.829 [facility] [address] [facility] [id number] [address] Sep, Leukocytosis, unspecified type D72.829 ; Vaginal discharge N89.8 ; Cramp of toe R25.2 ; Sleep apnea in adult G47.30 ; Diabetic polyneuropathy associated with type 2 diabetes mellitus E11.42 ; Anxiety F41.9 ; Other chronic pain G89.29 ; Acquired hypothyroidism E03.9 ; Gastroparesis K31.84 ; PTSD (post- traumatic stress disorder) F43.10 ; Sinus congestion R09.81 and BMI 40.0-44.9, adult Z68.[address] [id number][place] [id number] 14 Sep, 2017 Syncope, unspecified syncope type [...] R09.89 and Swelling of lower extremity M79.[address] [id number][place] [id number] Aug, Carbuncle and furuncle of buttock L02.33 ; Radicular pain of lower extremity M54.10 ; Mixed stress and urge urinary incontinence N39.46 ; Nail ingrowing L60.0 and BMI 40.0-44.9, adult Z68.41 [facility] [facility] [address] [facility] [id number] [address] Aug, [address] [id number][place] [id number] Aug, Diabetic polyneuropathy associated with type 2 diabetes mellitus E11.42 ; Anxiety F41.9 and Other chronic pain G89.29 [address]00565100[place] [id number] Jul, [facility] [place] [facility] [id number] [place] [address] Jul, [address] [id number], [place] [id number] Jul, Diabetic polyneuropathy associated with type 2 diabetes mellitus E11.42 ; Anxiety F41.9 and Other chronic pain G89.29 [address] [place] [address] [id number] Jul, BMI 40.0-44.9, adult Z68.41 ; Diabetes type 2, controlled E11.9 ; Sinus congestion R09.81 ; Sore throat J02.9 ; Gastroparesis K31.84 ; Mendez''s esophagus with dysplasia K22.719 ; Lumbago with sciatica, right side M54.41 and Other chronic pain G89.29 [address] [address] [address]00565100[place] [address] Jul, [address] [id number], [place] [id number] Jun, Acute non-recurrent frontal sinusitis J01.10 ; Acute diffuse otitis externa of both ears H60.313 and BMI 40.0-44.9, adult Z68.[address] [id number][place] [id number] Jun, Diabetic polyneuropathy associated with type 2 diabetes mellitus E11.42 ; Other chronic pain G89.29 and Anxiety F41.9 [address] [place] [address] [id number] Jun, [address] [place] [address] [id number] Apr, Anxiety F41.9 ; Gastroparesis K31.84 ; Other chronic pain G89.29 ; PTSD ( post-traumatic stress disorder) F43.10 ; Acquired hypothyroidism E03.9 ; Diabetic polyneuropathy associated with type 2 diabetes mellitus E11.42 ; Chronic seasonal allergic rhinitis, unspecified trigger J30.2 ; Urge incontinence of urine N39.41 ; Acute diffuse otitis externa of right ear H60.311 and BMI 45.0-49.9, adult Z68.42 [facility] [id number] [place] [address] [id number] 14 Apr, 2017 Chronic seasonal allergic rhinitis, unspecified trigger J30.2 and Encounter for immunization Z23 [address] [id number] [place] [address] [id number] 11 Apr, 2017 Diabetic polyneuropathy associated with type 2 diabetes mellitus E11.42 ; Acute pain of right knee M25.561 and Post traumatic stress disorder (PTSD) F43.10 [facility] [place] [facility] [id number] [place] [phone] Mar, [id number] [place] [address] [id number] Mar, Well woman exam with routine gynecological exam Z01.419 ; Stress incontinence N39.3 ; High risk sexual behavior Z72.51 ; Screening breast examination Z12.31 and Nausea R11.0 [address] [address] [place] [address] [id number] 14 Mar, 2017 Other chronic pain G89.29 ; Bladder leak R32 ; Sore throat J02.9 ; Post traumatic stress disorder (PTSD) F43.10 and Acute pain of right knee M25.561 [facility] [id number] [place] [address] [id number] Feb, [address] [address] [place] [address] [id number] Feb, Acquired hypothyroidism E03.9 ; Diabetic polyneuropathy associated with type 2 diabetes mellitus E11.42 ; Other chronic pain G89.29 ; Diarrhea, unspecified type R19.7 ; GERD without esophagitis K21.9 ; Post traumatic stress disorder (PTSD) F43.10 ; Intentional self-harm by blunt object, subsequent encounter X79.XXXD and Acute pain of right knee M25.561 [facility] [address] [id number], [place] [id number] 10 Feb, 2017 Acquired hypothyroidism E03.9 [facility] [id number], [place] [id number] Jan, Acquired hypothyroidism E03.9 ; Diabetic polyneuropathy associated with type 2 diabetes mellitus E11.42 ; Other chronic pain G89.29 ; Diarrhea, unspecified type R19.7 ; GERD without esophagitis K21.9 ; Post traumatic stress disorder (PTSD) F43.10 ; Intentional self-harm by blunt object, subsequent encounter X79.XXXD and Acute pain of right knee M25.561 [address] [place] [address] [id number] 12 Jan, 2017 Acquired hypothyroidism E03.9 ; Diabetic polyneuropathy associated with type 2 diabetes mellitus E11.42 ; Other chronic pain G89.29 ; Diarrhea, unspecified type R19.7 ; GERD without esophagitis K21.9 ; Post traumatic stress disorder (PTSD) F43.10 and Intentional self-harm by blunt object, initial encounter X79.XXXA [address]005[address]100[place] [id number] Jan, [address] [place] [address] [id number] December, PTSD (post-traumatic stress disorder) F43.10 ; Gastroparesis due to secondary diabetes E13.43 ; Chronic diarrhea K52.9 ; Non-seasonal allergic rhinitis due to pollen J30.1 and Constipation by delayed colonic transit K59.01 [facility] [facility] [address] [facility] [id number] [address] December, [id number] [id number] December, Diabetic polyneuropathy associated with type 2 diabetes mellitus E11.42 [address]65100[place] [id number] December, Diabetes type 2, uncontrolled E11.65 ; GERD without esophagitis K21.9 and PTSD (post-traumatic stress disorder) F43.10 [place] [id number] [id number] Nov, Anxiety F41.9 [facility] [id number] [place] [address] [id number] Nov, Diabetic polyneuropathy associated with type 2 diabetes mellitus E11.42 [facility] [id number], [place] [id number] Oct, Anxiety F41.9 [facility] [id number] [place] [address] [id number] Sep, Gastroparesis due to secondary diabetes E13.43 and Anxiety F41.9 [facility] [address]00565100[place] [address] Aug, [facility] [id number] [place] [address] [id number] Aug, Chronic constipation K59.09 and Diarrhea, unspecified type R19.7 [facility] [id number] [place] [address] [id number] Aug, Diabetic polyneuropathy associated with type 2 diabetes mellitus E11.42 [facility] [id number], [place] [id number] Aug, Gastroparesis K31.84 ; Diabetes type 2, uncontrolled E11.65 ; Gastric pain R10.9 ; Irritable bowel syndrome with both constipation and diarrhea K58.2 and Chronic constipation K59.00 [facility] [id number], [place] [id number] Aug, Dark stools R19.5 [facility] [id number] [place] [address] [id number] 10 Aug, 2016 Gastroparesis K31.84 and Chronic constipation K59.00 [facility] [id number] [place] [address] [id number] 09 Aug, 2016 Dark stools R19.5 ; Diabetes type 2, uncontrolled E11.65 ; Gastroparesis due to secondary diabetes E13.43 and Constipation by delayed colonic transit K59.01 [facility] [id number], [place] [id number] Aug, Anxiety F41.9 [facility] [id number], [place] [id number] Aug, Nausea R11.0 ; Left foot pain M79.672 ; Pain in right knee M25.561 ; Low back pain M54.5 and Other chronic pain G89.29 [facility] [facility] [address]00565100[place] [address] Jul, [facility] [id number] [place] [address] [id number] Jul, [place] [address] [place] [address] Jul, PTSD (post-traumatic stress disorder) F43.10 [facility] [id number], [place] [id number] Jul, Anxiety F41.9 [place] [address] [address] [id number] [address] Jul, [address] [id number], [place] [id number] Jul, PTSD (post-traumatic stress disorder) F43.10 [address]005[address]100[place] [id number] Jul, Diabetes type 2, uncontrolled E11.65 ; Left foot pain M79.672 ; Toe pain, right M79.674 ; Low back pain M54.5 ; Other chronic pain G89.29 ; Pain in right knee M25.561 ; PTSD (post-traumatic stress disorder) F43.10 and Anxiety F41.9 [facility] [address] [facility] [id number], [place] [id number] Jul, [facility] [address]005[address]100[place] [id number] Jun, PTSD (post-traumatic stress disorder) F43.10 [facility] [id number], [place] [id number] Jun, [facility] [facility] [address] [id number] [address] Jun, [place] [id number], [place] [id number] Jun, PTSD (post-traumatic stress disorder) F43.10 [facility] [id number] [place] [address] [id number] Jun, [facility] [id number] [place] [address] [id number] Jun, Cellulitis of right lower extremity L03.115 ; Other chronic pain G89.29 ; Pain in right knee M25.561 ; Pain in left knee M25.562 and Anxiety about health F41.8 [facility] [id number] [place] [address] [id number] May, Anxiety F41.9 [facility] [id number] [place] [address] [id number] May, PTSD (post-traumatic stress disorder) F43.10 [facility] [id number] [place] [address] [id number] May, Diabetes type 2, uncontrolled E11.65 ; Diabetic polyneuropathy associated with type 2 diabetes mellitus E11.42 ; Gastroparesis due to secondary diabetes E13.43 ; Anxiety F41.9 ; Other chronic pain G89.29 ; Pain in right knee M25.561 ; Pain in left knee M25.562 ; Acquired hypothyroidism E03.9 and Chronic constipation K59.00 [facility] [facility] [id number] [place] [address] [id number]- 9341 May, [facility] [id number] [place] [address] [id number] May, [facility] [id number] [place] [address] [id number] Apr, [facility] [id number] [place] [address] [id number] Apr, [facility] [facility] [id number] [place] [address] [id number]- 1526 Apr, [facility] [id number] [place] [address] [id number] Apr, [facility] [facility] [address] [place] [address] Apr, [facility] [id number] [place] [id number] Apr, Diabetes type 2, uncontrolled E11.65 ; Diabetic polyneuropathy associated with type 2 diabetes mellitus E11.42 ; Gastroparesis due to secondary diabetes E13.43 and Encounter for immunization Z23 [facility] [address] [id number] [place] [id number] Apr, Gastroparesis K31.84 and Diabetes type 2, controlled E11.9 [facility] [address] [id number] [place] [id number] Mar, Diabetes type 2, controlled E11.9 ; Chronic constipation K59.00 and Gastroparesis K31.84 [facility] [address] [id number] [place] [id number] Mar, [facility] [id number] [place] [address] [id number] Mar, Diabetes type 2, controlled E11.9 [facility] [address] [id number] [place] [id number] Mar, [facility] [address] [id number], [place] [id number] Feb, [facility] [id number] [place] [address] [id number] Feb, [facility] [address] [id number] [place] [id number] Feb, Diabetes type 2, controlled E11.9 [facility] [address] [id number], [place] [id number] Feb, [facility] [address] [id number], [place] [id number] Jan, [facility] [address] [id number] [place] [id number] Jan, [facility] [address] [id number] [place] [id number] Jan, Diabetes type 2, controlled E11.9 [facility] [address] [id number], [place] [id number] December, [facility] [id number] [place] [address] [id number] December, Diabetes type 2, uncontrolled E11.65 and Diabetes type 2, controlled E11.9 [place] [address] [place] [address] [id number] December, [address] [id number] Nov, Wound of toenail, subsequent encounter S91.209D and Plantar fascia syndrome M72.[address] [id number] Nov, Ingrown toenail L60.[address] [id number] Nov, Wound of toenail, subsequent encounter S91.209D [place] [address] [place] [address] [id number] Nov, Tinea unguium B35.1 and Ingrowing nail L60.0 [place] [address] [place] [address] [id number] Nov, Ingrown toenail L60.[address] [id number] Nov, 2015 Cellulitis of right lower extremity L03.115 [place] [address] [place] [address] [id number] Nov, Ingrown toenail L60.0 and Diabetes type 2, controlled E11.9 [place] [address] [place] [address] [id number] Oct, [place] [address] [place] [address] [id number] Oct, Anxiety F41.[address] [id number] Sep, [address] [id number] Sep, Elevated white blood cell count D72.829 and Multiple joint pain M25.[address] [place] [id number] Sep, Diabetes type 2, uncontrolled E11.65 ; Onychomycosis B35.1 ; Skin candidiasis B37.2 and Anxiety F41.9 [facility] [id number] [place] [address] [id number] Aug, [facility] [id number] [place] [address] [id number] Aug, [facility] [id number] [place] [address] [id number] Jul, Diabetes type 2, uncontrolled E11.65 [facility] [id number] [place] [address] [id number] Jul, [facility] [id number] [place] [address] [id number] Jul, Diabetes type 2, uncontrolled E11.65 [facility] [id number] [place] [address] [id number] Jul, [facility] [place] [id number] [place] [address] [id number] Jun, [facility] [address] [place] [address]- [address] Jun, [facility] [place] [id number] [place] [address] [id number] Jun, Diabetes type 2, uncontrolled E11.65 ; Chronic constipation K59.00 and Anxiety F41.9 [facility] [place] [address] [id number][place] [id number] Jun, Plantar fascia syndrome M72.2 [facility] [address] [place] [address] [id number] May, [facility] [address] [place] [address] [id number] May, [facility] [place] [id number] [place] [address] [id number] May, Encounter for immunization Z23 ; Diabetes type 2, uncontrolled E11.65 and Depression with anxiety F41.8 [facility] [place] [id number] [place] [address] [id number] Apr, Chronic constipation 564.00 ; Insomnia, unspecified 780.52 ; Diabetes mellitus, type 2 250.00 ; PTSD (post-traumatic stress disorder) 309.81 and Anxiety and depression 300.00 Nikia [address] [id number] [id number] Apr, [facility] [address] [place] [address] [id number] Apr, Anxiety and depression 300.00 and PTSD (post-traumatic stress disorder) 309.81 [facility] [address] [place] [address] [id number] Mar, [place] [address] [place] [address] [id number] Mar, Follow up V67.9 ; Social anxiety disorder 300.23 and Acid reflux 530.81 [place] [address] [place] [address] [id number] Feb, [place] [address] [place] [address] [id number] Feb, [facility] [id number] [place] [address] [id number] Feb, [place] [address] [place] [address] [id number] Feb, [facility] [place] [facility] [id number] [place] [address] 44[address]- 2546 Feb, [place] [address] [place] [address] [id number] Feb, Unspecified hereditary and idiopathic peripheral neuropathy 356.9 ; Heartburn 787.1 ; Uncontrolled type 2 diabetes with neuropathy 250.62 ; Otitis externa 380.10 and HEP B (ADULT) DX V05.3 [place] [address] [place] [address] [id number] Jan, [place] [address] [place] [address] [id number] December, [facility] [place] [facility] [address] [address]- [address] Nov, [facility] [place] [facility] [address] [id number] [address]- [address] Nov, [facility] [place] [facility] [address] [facility] [id number] [place] [address]- 25[address] Oct, [facility] [place] [facility] [address] [facility] [id number] [place] [address]- 2546 Oct, [facility] [address] [facility] [id number], [place] [id number] Oct, [facility] [place] [facility] [address] [facility] [id number] [place] [address]- 2546 Oct, [facility] [place] [facility] [address] [facility] [id number] [place] [address]- 2546 Oct, [facility] [place] [facility] [address] [facility] [id number] [place] [address]- 2546 Oct, [facility] [address] [facility] [id number], [place] [id number] Oct, [facility] [place] [facility] [address] [facility] [id number] [address]- [address] Oct, [facility] [address] [id number], [place] [id number] Oct, [facility] [place] [facility] [address] [facility] [id number] [place] [address] Oct, [facility] [address] [id number][place] [id number] Oct, [facility] [address] [id number][place] [id number] Oct, [facility] [place] [facility] [address] [facility] [id number] [place] [address] Oct, [facility] [place] [facility] [address] [facility] [id number] [place] [address] Oct, [facility] [address] [id number][place] [id number] Oct, [facility] [place] [facility] [address] [facility] [id number] [place] [address] Oct, [facility] [place] [facility] [address] [id number] [place] [address] Sep, [facility] [place] [facility] [address] [facility] [id number] [place] [address] Sep, [facility] [address] [id number][place] [id number] Sep, [facility] [place] [facility] [address] [facility] [id number] [place] [address] Sep, [facility] [place] [facility] [address] [facility] [id number] [place] [address] Sep, [facility] [place] [facility] [address] [facility] [id number] [place] [address] Sep, [facility] [address] [facility] [id number][place] [id number] Aug, [facility] [place] [facility] [address] [facility] [id number] [place], [place] [address] Aug, [facility] [place] [facility] [address] [facility] [id number] [address] Aug, [facility] [place] [facility] [address] [facility] [id number] [place] [address] Aug, [facility] [place] [address] [facility] [id number][place] [id number] Aug, [facility] [place] [facility] [address] [facility] [id number] [place] [address] Aug, [facility] [place] [facility] [address] [facility] [id number] [place] [address] Aug, [facility] [place] [facility] [address] [facility] [id number] [place] [address] Aug, [facility] [place] [address] [id number][place] [id number] Aug, [facility] [place] [address] [id number][place] [id number] Aug, [facility] [place] [facility] [address] [id number] [place] [address] Aug, [facility] [place] [facility] [address] [facility] [id number] [place] [address] Aug, [facility] [place] [address] [facility] [id number][place] [address] Jul, [facility] [place] [facility] [address] [facility] [id number] [place] [address] Jul, [facility] [place] [address] [facility] [id number] [place] [id number] Jun, [facility] [place] [facility] [address] [facility] [id number] [place] [address] 47[address] Jun, [facility] [place] [address] [facility] [id number][place] [address] Jun, [facility] [place] [facility] [address] [facility] [id number] [place] [address] Jun, [facility] [place] [address] [facility] [id number][place] [id number] Jun, [facility] [place] [facility] [address] [facility] [id number] [place] [address] Jun, [facility] [place] [facility] [address] [facility] [id number] [place] [address] May, [facility] [place] [facility] [address] [facility] [id number] [place] [address] May, [facility] [place] [address] [facility] [id number][place] [id number] May, [facility] [place] [facility] [address] [facility] [id number] [place] [address] 70[address] May, [facility] [place] [address] [facility] [id number][place] [id number] Apr, [facility] [place] [facility] [address] [facility] [id number] [place] [address] 2546 Apr, [facility] [place] [address] [facility] [id number][place] [address] Apr, [facility] [place] [address] [facility] [id number] [place] [id number] Apr, [facility] [place] [facility] [address] [facility] [id number] [place] [address] Apr, [facility] [place] [facility] [address] [facility] [id number] [place] [address] 3658 Apr, [facility] [place] [address] [facility] [id number] [place] [id number] Apr, [facility] [place] [facility] [address] [id number] [place] [address] Apr, [facility] [place] [address] [facility] [id number] [place] [id number] Apr, [facility] [place] [facility] [address] [facility] [id number] [place] [address]708 Apr, [facility] [place] [address] [facility] [id number] [place] [id number] Feb, [facility] [place] [facility] [address] [facility] [id number] [place] [address] Feb, [facility] [address] [facility] [id number] [place] [id number] Feb, [facility] [place] [facility] [address] [id number] [address] Feb, [facility] [place] [facility] [address] [facility] [id number] [place] [address] Jan, [facility] [place] [facility] [address] [facility] [id number] [place] [address] 8283 Jan, [facility] [place] [facility] [address] [facility] [id number] [place] [address]279 Jan, [facility] [address] [facility] [id number][place] [address] Jan, [facility] [place] [facility] [address] [facility] [id number] [place] [address] 7842 Jan, [facility] [place] [facility] [address] [facility] [id number] [place] [address]656 Jan, [facility] [address] [id number] [place] [id number] Jan, [facility] [place] [facility] [address] [facility] [id number] [place] [address] 8866 Jan, [facility] [place] [address] [id number] [place] [id number] December, [facility] [place] [facility] [address] [id number] [place] [address] December, [facility] [place] [address] [id number] [place] [id number] December, [facility] [address] [id number] [place] [id number] December, [facility] [place] [address] [id number] [place] [id number] December, [facility] [place] [facility] [address] [facility] [id number] [place] [address] December, [facility] [place] [facility] [address] [facility] [id number] [place] [address]- 8306 December, [facility] [place] [facility] [address] [facility] [id number] [place] [address] 2726 December, [facility] [address] [facility] [id number] [place] [id number] Nov, [facility] [place] [facility] [address] [facility] [id number] [place] [address] 2066 Nov, [facility] [place] [address] [facility] [id number] [place] [id number] Oct, [facility] [place] [facility] [address] [facility] [id number] [place] [address] Oct, [facility] [place] [facility] [address] [facility] [id number] [place] [address]- 9326 Sep, [facility] [place] [facility] [address] [facility] [id number] [place] [address]- [address] Sep, [facility] [address] [id number] [place] [id number] Aug, [facility] [address] [id number] [place] [id number] Aug, [facility] [address] [facility] [id number] [place] [address] 9649 Aug, [facility] [address] [facility] [id number] [place] [address]- 6826 Aug, [facility] [address] [id number][place] [address] Jul, [facility] [address] [facility] [id number] [place] [address]- 1771 Jul, [facility] [address] [id number][place] [address] Jul, [facility] [address]00565100[place] [address] Jul, [facility] [address] [id number], [place] [address] Jun, [facility] [address] [facility] [id number] [place] [address]- 4143 Jun, [facility] [address] [id number][place] [id number] Apr, [facility] [address] [id number][place] [address]307 Mar, [facility] [address] [id number], [place] [id number] Mar, [facility] [address] [id number] [place] [id number] Mar, [facility] [address] [id number] [place] [address] Mar, [facility] [address] [id number] [place] [address] Feb, [facility] [address] [id number][place] [address] Jan, [facility] [address] [id number] [place] [address] Jan, [facility] [place] [address] [id number] [place] [address] Jan, [facility] [place] [address] [id number] [place] [address] Jan, [facility] [place] [address] [id number] [place] [address] December, [facility] [place] [address] [id number] [place] [id number] December, [facility] [place] [address] [id number] [place] [address] December, [facility] [address] [id number] [place] [address]- 9836 Jul, [facility] [address] [id number] [place] [address] Jul, [facility] [place] [address] [id number] [place] [id number] Jul, [facility] [address] [id number] [place] [id number] Jul, [facility] [place] [address] [id number] [place] [address] Jul, [facility] [place] [facility] [address]00565100[place] [address]- 96[address] Jul, [facility] [place] [facility] [address]00565100[place] [address]- 2328 Jul, [facility] [place] [facility] [address] [facility] [id number] [place] [address]- 5846 Jul, [facility] [address] [id number] [place] [id number] Jun, [facility] [place] [facility] [address] [facility] [id number] [place] [address]- 7920 Jun, [facility] [place] [facility] [address] [facility] [id number] [place] [address]- 7223 Jul, [facility] [place] [facility] [address] [id number] [address]- 3174 Jul, [facility] [place] [facility] [address] [id number] [place] [address]- 6628 Jul, [facility] [place] [facility] [address] [id number] [place] [address]- 7787 Jul, [facility] [place] [facility] [address] [id number] [place] [address]- 8622 Jun, [facility] [place] [facility] [address] [id number] [place] [address]- 8221 Jun, [facility] [place] [facility] [address] [id number] [place] [address]- 5903 Jun, [facility] [place] [facility] [address] [id number] [place] [address]- 8807 Jun, [facility] [place] [facility] [address] [id number] [place] [address]- 8070 Jun, [facility] [place] [facility] [address] [id number] [place] [address]- 3969 May, [facility] [place] [facility] [address] [id number] [place] [address]- 9656 May, [facility] [place] [facility] [address] [id number] [place] [address]- 8039 May, [facility] [place] [facility] [address] [id number] [place] [address]- 6565 May, [facility] [place] [facility] [address] [id number] [place] [address]- [address]99 16 Nov, 2009 [facility] [place] [facility] [address] [id number] [place] [address]- 8212 Jul, [facility] [place] [facility] [address] [id number] [place] [address]- 1701 Jun, [facility] [place] [facility] [address] [id number] [place] [address]- 5770 Jun, [facility] [place] [facility] [address] [id number] [address]- 4277 May, [facility] [place] [facility] [address]65100[place] May, [facility] [place] [facility] [address]65100[place] [address] May, [facility] [place] [facility] [id number] [place] [address]- 2253 May, [facility] [place] [facility] [id number] [place] [address]- 0509 May, [facility] [place] [facility] [id number] [place] [address] 9[address]- 5122 May, [facility] [place] [facility] [id number] [place] [address] 092458- 1652 Apr, [facility] [place] [facility] [id number] [place] [address] 145784- 4852 Jan, IMMUNIZATIONS Vaccine Route Administration Date Status SOLUMEDROL (UP TO 125 MG) IM Intramuscular Jul 19, 2017 Administered SOCIAL HISTORY Never Assessed REASON FOR VISIT Diabetes, Current A1c is needed for pending Kim DONOVAN---shannon, went to ED , burned throat on a mozzarella stick [facility] RN PLAN OF CARE Activity Details Follow Up 4 Weeks Reason:CHM Anxiety/nerve pain VITAL SIGNS Height 62 in 2017-07-19 Weight 232.4 lbs 2017-07-19 Temperature 98.0 degrees Fahrenheit 2017-07-19 Heart Rate 92 bpm 2017-07-19 Respiratory Rate 18 2017-07-19 BMI 42.50 kg/m2 2017-07-19 Blood pressure systolic 110 mmHg 2017-07-19 Blood pressure diastolic 68 mmHg 2017-07-19 MEDICATIONS Medication Instructions Dosage Frequency Start Date End Date Duration Status Fluticasone Propionate 50 MCG/ACT Nasally Once a day 1 spray in each nostril 24h Active Toviaz 8 MG Orally Once a day 1 tablet 24h 30 Active Pen [place] 29G X 12MM subcutaneous 4 times a day Inject 6h Active TRUEplus Lancets 28G - USE TO CHECK BLOOD SUGAR FOUR (4) TIMES DAILY... Active Zofran 8 MG Orally Once a day as needed for nausea 1 tablet Active Ativan 0.5 MG Orally every 6 hrs must last 30 days 1 tablet as needed Apr, 0 days Active Mobic 7.5 MG Orally twice a day 1 tablet 12h Jun, Active Trulicity 1.5 MG/0.5ML Subcutaneous once weekly 0.5 ml Active Prevacid 30 MG Orally Once a day 1 capsule 24h Active Escitalopram Oxalate 20 mg Orally Once a day 1 tablet 24h Active Glucometer 1 glucometer as directed Jan, Active Promethazine HCl 25 MG Orally 3 times a day 1 tablet as needed 8h 0 Active Linzess 145 MCG Orally Once a day (DX: chronic constipation/abd pain) 1 capsule May, Active Vitamin D-3 1000 UNIT Orally Once a day 1 capsule 24h Not-Taking Sudafed 30 MG Orally every 6 hrs 1-2 tablet as needed 6h Jul, 07 days Active Sucralfate 1 GM Orally twice per day 1 tablet on an empty stomach and crush and dissolve in water 30mins before taking Active Lyrica 150 MG Orally 3 times a day 1 capsule 8h 0 days Active Singulair 10 mg Orally Once a day 1 tablet in the evening 24h December, Active Levothyroxine Sodium 25 MCG Orally Once a day 1 tablet 24h Active Ciprodex 0.3-0.1 % Otic Twice a day 4 drops into affected ear 12h Apr, 10 days Active Voltaren 1 % USE (2 GRAMS) TRANSDERMALLY TWICE DAILY DIRECTED... Active Blood Glucose Test Strip ... subcutaneously 4 times a day as directed 6h Jan, Active RESULTS Name Result Date Reference Range A1C (IN HOUSE) 2017-07-19 A1C IN HOUSE 6.2 4.3 - 5.6 % Previous A1c 6.8 Lot [id number] Exp date 03/26 MRI : Lumbar w/ Contrast PROCEDURES Procedure Date Ordered Result Body Site GLYCATED HEMOGLOBIN TEST Jul 19, 2017 SOLUMEDROL (UP TO 125 MG) Jul 19, 2017 THER/PROPH/DIAG INJ, SC/IM Jul 19, 2017 INSTRUCTIONS MEDICATIONS ADMINISTERED No Known Medications [...]
--- OUTSIDE RECORDS SUMMARY | 2018-02-13 10:58 | XMS REPORT ---
Author Author DYLLAN GAMING [facility] Address [address] [place] [address] Care Team Providers Care Medical Officer Psychiatry Name Role Phone DYLLAN GAMING Unavailable PROBLEMS Type Condition ICD9-CM Code [id number] Code Onset Dates Condition Status SNOMED Code Problem Neutrophilia D72.9 Active 673431357 Problem Lymphocytosis D72.820 Active 84231273 Problem Chronic constipation K59.00 Active 432712566 Problem Diabetes type 2, uncontrolled E11.65 Active 207888350 Problem Anxiety F41.9 Active 66659315 Problem Diabetes type 2, controlled E11.9 Active 68285931 Problem Gastroparesis due to secondary diabetes E13.43 Active 4090188 Problem Diabetic polyneuropathy associated with type 2 diabetes mellitus E11.42 Active 16039444 Problem Acquired hypothyroidism E03.9 Active 937306199 Problem Post traumatic stress disorder (PTSD) F43.10 Active 13277065 Problem Other chronic pain G89.29 Active 55681223 Problem Diarrhea, unspecified type R19.7 Active 44670123 Problem PTSD (post-traumatic stress disorder) F43.10 Active 53944976 Problem Stress incontinence N39.3 Active 52282052 Problem Lumbago with sciatica, right side M54.41 Active 651167654 Problem Urge incontinence of urine N39.41 Active 46852536 Problem Leukocytosis, unspecified type D72.829 Active 535617281 Problem Sleep apnea in adult G47.30 Active 15996271 Problem Pain in right knee M25.561 Active 088082239076862 Problem Pain in left knee M25.562 Active 749119900829063 Problem Anxiety about health F41.8 Active 732722775 Problem Mixed stress and urge urinary incontinence N39.46 Active 456169246 Problem Mendez''s esophagus with dysplasia K22.719 Active 002158678 Problem Current moderate episode of major depressive disorder without prior episode F32.1 Active 61314042 Problem Syncope, unspecified syncope type R55 Active 753008055 Problem Low back pain M54.5 Active 749753175 Problem Irritable bowel syndrome with both constipation and diarrhea K58.2 Active 92474764 Problem Constipation by delayed colonic transit K59.01 Active 29085230 Problem Left foot pain M79.672 Active 28947022 Problem GERD without esophagitis K21.9 Active 916011681 Problem Chronic diarrhea K52.9 Active 920299707 Problem Gastric pain R10.9 Active 415567503 Problem Gastroparesis K31.84 Active 277436334 ALLERGIES Substance Reaction Event Type Date Status Sulfamethoxazole-Trimethoprim swelling Drug Allergy December, Active ENCOUNTERS Encounter Location Date Diagnosis [facility] [address] [address] December, [place] [id number] [place] [address] [id number] Oct, Other chronic pain G89.29 ; Anxiety F41.9 and Diabetic polyneuropathy associated with type 2 diabetes mellitus E11.42 [place] [id number] [place] [address] [id number] Oct, Neutrophilia D72.[address] [id number] Sep, Neutrophilia D72.9 ; Lymphocytosis D72.820 and Leukocytosis, unspecified type D72.829 [place] [address] [place] [address] [id number] Sep, Leukocytosis, unspecified type D72.829 ; Vaginal discharge N89.8 ; Cramp of toe R25.2 ; Sleep apnea in adult G47.30 ; Diabetic polyneuropathy associated with type 2 diabetes mellitus E11.42 ; Anxiety F41.9 ; Other chronic pain G89.29 ; Acquired hypothyroidism E03.9 ; Gastroparesis K31.84 ; PTSD (post- traumatic stress disorder) F43.10 ; Sinus congestion R09.81 and BMI 40.0-44.9, adult Z68.41 [place] [id number] [place] [address] [id number] Sep, Syncope, unspecified syncope type R55 ; [...] R09.89 and Swelling of lower extremity M79.89 [facility] [address] [place] [address] [id number] Aug, Carbuncle and furuncle of buttock L02.33 ; Radicular pain of lower extremity M54.10 ; Mixed stress and urge urinary incontinence N39.46 ; Nail ingrowing L60.0 and BMI 40.0-44.9, adult Z68.41 [facility] [address] [address] Aug, [facility] [address] [place] [address] [id number] Aug, Diabetic polyneuropathy associated with type 2 diabetes mellitus E11.42 ; Anxiety F41.9 and Other chronic pain G89.29 [facility] 120 [facility] [id number] [id number] Jul, [facility] [address] [place] [address] [phone] 9548 Jul, [address] [id number] [id number] Jul, Diabetic polyneuropathy associated with type 2 diabetes mellitus E11.42 ; Anxiety F41.9 and Other chronic pain G89.29 [facility] [address] [facility] [id number] [place] [address] [id number] Jul, BMI 40.0-44.9, adult Z68.41 ; Diabetes type 2, controlled E11.9 ; Sinus congestion R09.81 ; Sore throat J02.9 ; Gastroparesis K31.84 ; Mendez''s esophagus with dysplasia K22.719 ; Lumbago with sciatica, right side M54.41 and Other chronic pain G89.29 [facility] [address] [place] [address]- [address] Jul, [place] [id number] [place] [address] [id number] Jun, Acute non-recurrent frontal sinusitis J01.10 ; Acute diffuse otitis externa of both ears H60.313 and BMI 40.0-44.9, adult Z68.[address] [id number] Jun, Diabetic polyneuropathy associated with type 2 diabetes mellitus E11.42 ; Other chronic pain G89.29 and Anxiety F41.9 [place] [id number] [place] [address] [id number] Jun, [address] [id number] Apr, Anxiety F41.9 ; Gastroparesis K31.84 ; Other chronic pain G89.29 ; PTSD ( post-traumatic stress disorder) F43.10 ; Acquired hypothyroidism E03.9 ; Diabetic polyneuropathy associated with type 2 diabetes mellitus E11.42 ; Chronic seasonal allergic rhinitis, unspecified trigger J30.2 ; Urge incontinence of urine N39.41 ; Acute diffuse otitis externa of right ear H60.311 and BMI 45.0-49.9, adult Z68.42 [place] [id number] [place] [address] [id number] 14 Apr, 2017 Chronic seasonal allergic rhinitis, unspecified trigger J30.2 and Encounter for immunization Z23 [address] [id number] Apr, Diabetic polyneuropathy associated with type 2 diabetes mellitus E11.42 ; Acute pain of right knee M25.561 and Post traumatic stress disorder (PTSD) F43.10 [facility] [address] [place] [address] [phone] Mar, [facility] [id number] [id number] Mar, Well woman exam with routine gynecological exam Z01.419 ; Stress incontinence N39.3 ; High risk sexual behavior Z72.51 ; Screening breast examination Z12.31 and Nausea R11.0 [place] [id number][place] [id number] Mar, Other chronic pain G89.29 ; Bladder leak R32 ; Sore throat J02.9 ; Post traumatic stress disorder (PTSD) F43.10 and Acute pain of right knee M25.561 [address]65[address] [id number] Feb, [place] [address] [place] [address] [id number] Feb, Acquired hypothyroidism E03.9 ; Diabetic polyneuropathy associated with type 2 diabetes mellitus E11.42 ; Other chronic pain G89.29 ; Diarrhea, unspecified type R19.7 ; GERD without esophagitis K21.9 ; Post traumatic stress disorder (PTSD) F43.10 ; Intentional self-harm by blunt object, subsequent encounter X79.XXXD and Acute pain of right knee M25.561 [address] [place] [address] [id number] Feb, Acquired hypothyroidism E03.9 [facility] [id number], [place] [id number] Jan, Acquired hypothyroidism E03.9 ; Diabetic polyneuropathy associated with type 2 diabetes mellitus E11.42 ; Other chronic pain G89.29 ; Diarrhea, unspecified type R19.7 ; GERD without esophagitis K21.9 ; Post traumatic stress disorder (PTSD) F43.10 ; Intentional self-harm by blunt object, subsequent encounter X79.XXXD and Acute pain of right knee M25.561 [address] [place] [address] [id number] Jan, Acquired hypothyroidism E03.9 ; Diabetic polyneuropathy associated with type 2 diabetes mellitus E11.42 ; Other chronic pain G89.29 ; Diarrhea, unspecified type R19.7 ; GERD without esophagitis K21.9 ; Post traumatic stress disorder (PTSD) F43.10 and Intentional self-harm by blunt object, initial encounter X79.XXXA [facility] [address] [place] [id number] [place] [address] [id number] Jan, [address] [id number] December, PTSD (post-traumatic stress disorder) F43.10 ; Gastroparesis due to secondary diabetes E13.43 ; Chronic diarrhea K52.9 ; Non-seasonal allergic rhinitis due to pollen J30.1 and Constipation by delayed colonic transit K59.01 [facility] [address] [address] December, [address] [id number] December, Diabetic polyneuropathy associated with type 2 diabetes mellitus E11.[address] [id number] December, Diabetes type 2, uncontrolled E11.65 ; GERD without esophagitis K21.9 and PTSD (post-traumatic stress disorder) F43.10 [facility] [address] [place] [id number] [place] [address] [id number] Nov, Anxiety F41.9 [place] [address] [place] [address] [id number] Nov, Diabetic polyneuropathy associated with type 2 diabetes mellitus E11.42 [place] [id number] [place] [address] [id number] Oct, Anxiety F41.[address] [id number] Sep, Gastroparesis due to secondary diabetes E13.43 and Anxiety F41.9 [facility] [address] [address] Aug, [facility] [address] [id number] Aug, Chronic constipation K59.09 and Diarrhea, unspecified type R19.7 [facility] [address] [id number] Aug, Diabetic polyneuropathy associated with type 2 diabetes mellitus E11.42 [facility] [address] [place] [address] [id number] Aug, Gastroparesis K31.84 ; Diabetes type 2, uncontrolled E11.65 ; Gastric pain R10.9 ; Irritable bowel syndrome with both constipation and diarrhea K58.2 and Chronic constipation K59.00 [facility] [address] [place] [address] [id number] Aug, Dark stools R19.5 [facility] [address] [place] [address] [id number] 10 Aug, 2016 Gastroparesis K31.84 and Chronic constipation K59.00 [facility] [address] [place] [address] [id number] 09 Aug, 2016 Dark stools R19.5 ; Diabetes type 2, uncontrolled E11.65 ; Gastroparesis due to secondary diabetes E13.43 and Constipation by delayed colonic transit K59.01 [facility] [address] [place] [address] [id number] Aug, Anxiety F41.9 [address] [place] [address] [id number] Aug, Nausea R11.0 ; Left foot pain M79.672 ; Pain in right knee M25.561 ; Low back pain M54.5 and Other chronic pain G89.29 [facility] [address] [place] [address]- [address]29 Jul, [facility] [id number] [place] [address] [id number] Jul, [facility] [address] [place] [id number] [place] [address]- 5546 Jul, PTSD (post-traumatic stress disorder) F43.10 [facility] [address] [place] [address] [id number] Jul, Anxiety F41.9 [facility] [address] [place] [address] [phone] Jul, [place] [address] [facility] [id number] [id number] Jul, PTSD (post-traumatic stress disorder) F43.10 [facility] [id number] [place] [address] [id number] Jul, Diabetes type 2, uncontrolled E11.65 ; Left foot pain M79.672 ; Toe pain, right M79.674 ; Low back pain M54.5 ; Other chronic pain G89.29 ; Pain in right knee M25.561 ; PTSD (post-traumatic stress disorder) F43.10 and Anxiety F41.9 [facility] [address] [id number] Jul, [facility] [address] [place] [id number] [place] [address] [id number] Jun, PTSD (post-traumatic stress disorder) F43.10 [facility] [address] [id number] Jun, [facility] [address] [address] Jun, [facility] [address] [id number] Jun, PTSD (post-traumatic stress disorder) F43.10 [facility] [id number] [id number] Jun, [facility] [address] [id number] Jun, Cellulitis of right lower extremity L03.115 ; Other chronic pain G89.29 ; Pain in right knee M25.561 ; Pain in left knee M25.562 and Anxiety about health F41.8 [facility] [address] [id number] May, Anxiety F41.9 [place] [id number] [place] [address] [id number] May, PTSD (post-traumatic stress disorder) F43.10 [address]005[address] [id number] May, Diabetes type 2, uncontrolled E11.65 ; Diabetic polyneuropathy associated with type 2 diabetes mellitus E11.42 ; Gastroparesis due to secondary diabetes E13.43 ; Anxiety F41.9 ; Other chronic pain G89.29 ; Pain in right knee M25.561 ; Pain in left knee M25.562 ; Acquired hypothyroidism E03.9 and Chronic constipation K59.00 [facility] [address] [place] [id number] [place] [address] [phone]- [phone] May, [facility] [address] [place] [id number] [place] [address] [id number] May, [facility] [address] [place] [id number] [place] [address] [id number] Apr, [facility] [address] [id number] Apr, [facility] [address] [place] [id number] [place] [address] [phone] Apr, [facility] [address] [place] [id number] [place] [address] [id number] Apr, [facility] [address] [place] [id number] [place] [address] [id number] Apr, [facility] [address] [place] [id number] [place] [address] [id number] Apr, Diabetes type 2, uncontrolled E11.65 ; Diabetic polyneuropathy associated with type 2 diabetes mellitus E11.42 ; Gastroparesis due to secondary diabetes E13.43 and Encounter for immunization Z23 [facility] [address] [place] [id number] [place] [address] [id number] Apr, Gastroparesis K31.84 and Diabetes type 2, controlled E11.9 [facility] [address] [place] [id number] [place] [address] [id number] Mar, Diabetes type 2, controlled E11.9 ; Chronic constipation K59.00 and Gastroparesis K31.84 [facility] [address] [place] [id number] [place] [address] [id number] Mar, [facility] [address] [place] [id number] [place] [address] [id number] Mar, Diabetes type 2, controlled E11.9 [facility] [place] [address] [id number] [place] [id number] Mar, [facility] [place] [address] [id number] [place] [id number] Feb, [facility] [place] [address] [id number] [place] [id number] Feb, [facility] [place] [address] [id number] [place] [id number] Feb, Diabetes type 2, controlled E11.9 [facility] [place] [address] [id number] [place] [id number] Feb, [facility] [place] [address] [id number] [place] [id number] Jan, [facility] [place] [address] [id number] [place] [id number] Jan, [facility] [place] [address] [id number] [place] [id number] Jan, Diabetes type 2, controlled E11.9 [facility] [place] [address] [id number] [place] [id number] December, [facility] [place] [address] [id number] [place] [id number] December, Diabetes type 2, uncontrolled E11.65 and Diabetes type 2, controlled E11.9 [facility] [place] [address] [id number] [place] [id number] December, [facility] [place] [address] [id number] [place] [id number] Nov, Wound of toenail, subsequent encounter S91.209D and Plantar fascia syndrome M72.2 [facility] [place] [address] [id number] [place] [id number] Nov, Ingrown toenail L60.0 [facility] [place] [address] [id number] [place] [id number] Nov, Wound of toenail, subsequent encounter S91.209D [facility] [place] [address] [id number] [place] [id number] Nov, Tinea unguium B35.1 and Ingrowing nail L60.0 [facility] [place] [id number], [place] [id number] Nov, Ingrown toenail L60.0 [facility] [place] [address] [place] [id number] [place] [address] [id number] Nov, Cellulitis of right lower extremity L03.115 [facility] [address] [place] [id number] [place] [address] [id number] Nov, Ingrown toenail L60.0 and Diabetes type 2, controlled E11.9 [facility] [address] [place] [id number] [place] [address] [id number] Oct, [facility] [address] [place] [id number] [place] [address] [id number] Oct, Anxiety F41.9 [facility] [address] [place] [id number] [place] [address] [id number] Sep, [place] [address] [place] [id number] [place] [address] [id number] Sep, Elevated white blood cell count D72.829 and Multiple joint pain M25.50 [facility] [address] [place] [id number] [place] [address] [id number] Sep, Diabetes type 2, uncontrolled E11.65 ; Onychomycosis B35.1 ; Skin candidiasis B37.2 and Anxiety F41.9 [facility] [id number] [place] [address] [id number] Aug, [facility] [address] [place] [id number] [place] [address] [id number] Aug, [facility] [address] [place] [id number] [place] [address] [id number] Jul, Diabetes type 2, uncontrolled E11.65 [facility] [address] [place] [id number] [place] [address] [id number] Jul, [facility] [address] [place] [id number] [place] [address] [id number] Jul, Diabetes type 2, uncontrolled E11.65 [facility] [id number] [place] [address] [id number] Jul, [facility] [address] [id number] [id number] Jun, [facility] [address]00565100[place] [id number]- [address] Jun, [facility] [id number] [place] [address] [id number] Jun, Diabetes type 2, uncontrolled E11.65 ; Chronic constipation K59.00 and Anxiety F41.9 [facility] [address] [facility] [address] [id number] [id number] Jun, Plantar fascia syndrome M72.2 [facility] [id number] [place] [address] [id number] May, [address] [place] [address] [id number] May, [address] [place] [address] [id number] May, Encounter for immunization Z23 ; Diabetes type 2, uncontrolled E11.65 and Depression with anxiety F41.8 [address] [id number] Apr, Chronic constipation 564.00 ; Insomnia, unspecified 780.52 ; Diabetes mellitus, type 2 250.00 ; PTSD (post-traumatic stress disorder) 309.81 and Anxiety and depression 300.00 [facility] [place] [address] [facility] [id number] [id number] Apr, [place] [id number] [id number] Apr, Anxiety and depression 300.00 and PTSD (post-traumatic stress disorder) 309.81 [place] [id number] [id number] Mar, [address] [place] [address] [id number] Mar, Follow up V67.9 ; Social anxiety disorder 300.23 and Acid reflux 530.81 [address]005[address]100[place], [place] [id number] Feb, [place] [id number] [id number] Feb, [facility] [place] [id number], [place] [id number] Feb, [facility] [place] [id number] [place] [address] [id number] Feb, [facility] [address]00565100[place], [place] [address]- 2546 Feb, [facility] [place] [id number] [place] [address] [id number] Feb, Unspecified hereditary and idiopathic peripheral neuropathy 356.9 ; Heartburn 787.1 ; Uncontrolled type 2 diabetes with neuropathy 250.62 ; Otitis externa 380.10 and HEP B (ADULT) DX V05.3 [facility] [place] [id number] [place] [address] [id number] Jan, [facility] [place] [id number] [place] [address] [id number] December, [facility] [address] [place] [id number] [place] [address] [phone] Nov, [facility] [address] [place] [id number] [place] [address] [phone]- 4154 Nov, [facility] [place] [facility] [address] [place] [id number] [place] [address] [phone]- [phone] Oct, [facility] [address]00565100[place], [place] [address]- 4141 Oct, [facility] [place] [id number], [place] [id number] Oct, [facility] [place] [facility] [address] [place] [address] [phone]- 7327 Oct, [facility] [place] [facility] [address] [place] [id number] [place] [address] [phone]- [phone] Oct, [facility] [place] [facility] [address] [place] [address] 67207- [phone] Oct, [facility] [place] [id number], [place] [phone] Oct, [facility] [place] [facility] [address] [facility] [id number] [address]- 2546 Oct, [facility] [place] [address] [facility] [id number] [place] [id number] Oct, [facility] [place] [facility] [address] [facility] [id number], [place] [address]- 2546 Oct, [facility] [place] [address] [facility] [id number] [place] [id number] Oct, [facility] [place] [address] [facility] [id number] [place] [id number] Oct, [facility] [place] [facility] [address] [facility] [id number] [place] [address]- 2546 Oct, [facility] [place] [facility] [address] [place] [id number], [place] [address]- 2546 Oct, [facility] [place] [id number], [place] [id number] Oct, [facility] [place] [facility] [id number], [place] [address] Oct, [facility] [place] [facility] [id number] [place] [address] Sep, [facility] [place] [facility] [address] [id number], [place] [address] Sep, [facility] [address] [id number] [id number] Sep, [facility] [place] [facility] [address] [id number], [place] [address] Sep, [facility] [place] [facility] [address] [id number], [place] [address] Sep, [facility] [place] [facility] [address] [id number], [place] [address] Sep, [facility] [place] [facility] [address] [id number], [place] [address] Aug, [facility] [address] [id number] [id number] Aug, [facility] [place] [facility] [address] [facility] [id number] [place] [address] Aug, [facility] [place] [facility] [address] [facility] [id number] [place] [address] Aug, [facility] [address] [id number] [id number] Aug, [facility] [place] [facility] [address] [facility] [id number] [place] [address] Aug, [facility] [place] [facility] [address] [facility] [id number] [place] [address] Aug, [facility] [place] [facility] [address] [facility] [id number] [place] [address] Aug, [facility] [address] [id number][place] [id number] Aug, [facility] [address] [id number][place] [id number] Aug, [facility] [place] [facility] [address] [facility] [id number], [place] [address] Aug, [facility] [place] [facility] [address] [facility] [id number], [place] [address] Aug, [facility] [address] [id number][place] [id number] Jul, [facility] [place] [facility] [address] [facility] [id number], [place] [address] Jul, [facility] [address] [facility] [id number][place] [id number] Jun, [facility] [place] [facility] [address] [facility] [id number], [place] [address] Jun, [facility] [address] [id number][place] [id number] Jun, [facility] [place] [facility] [address] [facility] [id number], [place] [address] Jun, [facility] [address] [id number] [place] [id number] Jun, [facility] [place] [facility] [address] [facility] [id number] [place] [address] Jun, [facility] [place] [facility] [address] [facility] [id number] [place] [address] May, [facility] [place] [facility] [address] [facility] [id number] [place] [address] May, [facility] [address] [id number][place] [id number] May, [facility] [place] [facility] [address] [facility] [id number] [place] [address] May, [facility] [address] [id number][place] [id number] Apr, [facility] [place] [facility] [address] [facility] [id number] [place] [address] Apr, [facility] [address] [id number][place] [id number] Apr, [facility] [address] [id number] [place] [id number] Apr, [facility] [place] [facility] [address] [facility] [id number], [place] [address] Apr, [facility] [place] [facility] [address] [id number], [place] [address] Apr, [facility] [address] [id number][place] [id number] Apr, [facility] [place] [facility] [address] [id number] [place] [address] Apr, [facility] [address] [id number][place] [id number] Apr, [facility] [place] [facility] [address] [facility] [id number][place] [address] [address] Apr, [facility] [address] [id number], [place] [id number] Feb, [facility] [place] [facility] [address] [id number] [place] [address] Feb, [facility] [address] [id number] [place] [id number] Feb, [facility] [place] [facility] [address] [facility] [id number] [place] [address] Feb, [facility] [place] [facility] [address] [facility] [id number] [place] [address] Jan, [facility] [place] [facility] [address] [facility] [id number] [place] [address] Jan, [facility] [place] [facility] [address] [facility] [id number] [place] [address] Jan, [facility] [address] [facility] [id number] [place] [id number] Jan, [facility] [place] [facility] [address] [facility] [id number], [place] [address] Jan, [facility] [place] [facility] [address] [facility] [id number] [place] [address] Jan, [facility] [address] [id number][place] [id number] Jan, [facility] [place] [facility] [address] [facility] [id number], [place] [address] Jan, [facility] [address] [id number][place] [id number] December, [facility] [place] [facility] [address] [id number] [place] [address] December, [facility] [address] [id number] [place] [id number] December, [facility] [address] [id number] [place] [id number] December, [facility] [address] [id number] [place] [id number] December, [facility] [place] [facility] [address] [facility] [id number], [place] [address] December, [facility] [place] [facility] [address] [facility] [id number], [place] [address] December, [facility] [place] [facility] [address] [facility] [id number], [place] [address] December, [facility] [address] [facility] [id number], [place] [id number] Nov, [facility] [place] [facility] [address] [facility] [id number], [place] [address]46 Nov, [facility] [address] [facility] [id number][place] [id number] Oct, [facility] [place] [facility] [id number], [place] [address] Oct, [facility] [place] [facility] [address]00565100[place], [place] [address] Sep, [facility] [place] [facility] [address]65[address], [place] [address] Sep, [facility] [address] [facility] [id number], [place] [id number] Aug, [facility] [address] [id number][place] [id number] Aug, [facility] [place] [facility] [id number], [place] [address] Aug, [facility] [place] [facility] [address] [facility] [id number], [place] [address] Aug, [facility] [address] [facility] [id number], [place] [id number] Jul, [facility] [place] [facility] [address] [facility] [id number], [place] [address] Jul, [facility] [address] [facility] [id number], [place] [id number] Jul, [facility] [place] [facility] [address] [id number], [place] [address] Jul, [facility] [address] [id number] [place] [id number] Jun, [facility] [address] [facility] [id number] [place] [address] 7728 Jun, [facility] [address] [id number] [place] [id number] Apr, [facility] [address] [id number] [place] [id number] Mar, [facility] [address] [id number] [place] [id number] Mar, [facility] [address] [id number] [place] [id number] Mar, [facility] [address] [id number] [place] [id number] Mar, [facility] [address] [id number] [place] [id number] Feb, [facility] [address] [id number] [place] [id number] Jan, [facility] [address] [id number] [place] [id number] Jan, [facility] [address] [id number] [place] [id number] Jan, [facility] [address] [id number] [place] [id number] Jan, [facility] [address] [id number] [place] [id number] December, [facility] [address] [id number] [place] [id number] December, [facility] [address] [id number] [place] [id number] December, [facility] [address] [facility] [id number], [place] [address] Jul, [facility] [address] [id number] [place] [id number] Jul, [facility] [address] [id number] [place] [id number] Jul, [facility] [address] [id number][place] [id number] Jul, [facility] [address] [id number] [place] [id number] Jul, [facility] [place] [facility] [address] [id number] [place] [address]- 5666 Jul, [facility] [place] [facility] [address] [facility] [id number] [place] [address]- 8716 Jul, [facility] [place] [facility] [address] [id number], [place] [address]- 3490 Jul, [facility] [address] [id number] [place] [id number] Jun, [facility] [place] [facility] [address] [facility] [id number], [place] [address]- [address] Jun, [facility] [place] [facility] [address] [facility] [id number] [place] [address]- 4379 Jul, [facility] [place] [facility] [address] [facility] [id number], [place] [address]- [address] Jul, [facility] [place] [facility] [address] [facility] [id number] [place] [address]70 Jul, [facility] [place] [facility] [address] [facility] [id number] [place] [address]- 3578 Jul, [facility] [place] [facility] [address] [facility] [id number] [place] [address]- 7878 Jun, [facility] [place] [facility] [address] [facility] [id number], [place] [address]- 1731 Jun, [facility] [place] [facility] [address] [facility] [id number], [place] [address]- 0865 Jun, [facility] [place] [facility] [address] [facility] [id number], [place] 344647- [address]20 Jun, [facility] [place] [facility] [address] [facility] [id number], [place] [address]- 1543 Jun, [facility] [place] [facility] [address] [id number] [place] [address]- 8199 27 May, 2010 [facility] [place] [facility] [address] [id number] [place] [address]- 5046 19 May, 2010 [facility] [place] [facility] [address] [id number] [place] [address] 2546 13 May, 2010 [facility] [place] [facility] [address] [id number] [place] [address] 2546 13 May, 2010 [facility] [place] [facility] [address] [id number] [place] [address] 2544 16 Nov, 2009 [facility] [place] [facility] [address] [id number] [place] [address]- 4094 28 Jul, 2009 [facility] [place] [facility] [address] [id number] [place] [address]- 5167 25 Jun, 2009 [facility] [place] [facility] [address] [id number] [place] [address]- 1109 09 Jun, 2009 [facility] [place] [facility] [address] [id number] [place] [address]- 8032 29 May, 2009 [facility] [place] [facility] [address] [id number] [place] [address]- 5201 28 May, 2009 [facility] [place] [facility] [address] [facility] [id number] [place] [address]- 1843 26 May, 2009 [facility] [place] [facility] [address] [id number] [place] [address]- 2546 14 May, 2009 [facility] [place] [facility] [address] [id number] [place] [address] 2543 14 May, 2009 [facility] [place] [facility] [address] [id number] [place] [address] 2546 12 May, 2009 [facility] [place] [facility] [address] [id number], [place] [address] 2546 18 Sep2008 [facility] [place] [facility] [address] [id number], [place] [address] 6121 Jan, IMMUNIZATIONS No Known Immunizations SOCIAL HISTORY Never Assessed REASON FOR VISIT Depression [facility] RN PLAN OF CARE Activity Details Follow Up 4 Weeks Reason:CHM Diarrhea VITAL SIGNS Height 62 in 2016-12-29 Weight 250 lbs 2016-12-29 Temperature 96.6 degrees Fahrenheit 2016-12-29 Heart Rate 88 bpm 2016-12-29 Respiratory Rate 18 2016-12-29 BMI 45.72 kg/m2 2016-12-29 Blood pressure systolic 122 mmHg 2016-12-29 Blood pressure diastolic 70 mmHg 2016-12-29 MEDICATIONS Medication Instructions Dosage Frequency Start Date End Date Duration Status Zofran 8 MG Orally Once a day as needed for nausea 1 tablet Aug, Active Metformin HCl 850 MG Orally twice a day 1 tablet with a meal 12h Jul, Active Lisinopril 2.5 MG TAKE ONE (1) TABLET BY MOUTH DAILY... 90 Active Voltaren 1 % Transdermal 2 times a day as directed 12h Active Linzess 145 MCG Orally Once a day (DX: chronic constipation/abd pain) 1 capsule May, Active Mobic 7.5 MG Orally twice a day 1 tablet 12h Jun, Active Clonazepam 1 MG Orally Once a day 1.5 tabs in pm 24h Sep, 0 days Active Viberzi 75 MG Orally Twice a day 1 tablet with food 12h December, December, 0 days Active Trulicity 1.5 MG/0.5ML Subcutaneous once weekly 0.5 ml Active Sucralfate 1 GM Orally Once a day at bedtime 1 tablet on an empty stomach 90 Active Lyrica 150 MG Orally 3 times a day 1 capsule 8h Sep, 0 days Active Blood Glucose Test Strip ... subcutaneously 4 times a day as directed 6h Jan, Active Hydrochlorothiazide 12.5 MG TAKE ONE (1) CAPSULE BY MOUTH ONCE DAILY... Active Pen [place] 29G X 12MM subcutaneous 4 times a day Inject 6h Active Fluticasone Propionate 50 MCG/ACT Nasally Once a day 1 spray in each nostril 24h Active Escitalopram Oxalate 20 mg Orally Once a day 1 tablet 24h Active Glucometer 1 glucometer as directed Jan, Active HydrOXYzine HCl 50 MG Orally 3 times a day 1/2 in am 1/2 tab noon and 1 tablet at bedtime 8h 90 Active BusPIRone HCl 10 MG TAKE ONE (1) TABLET BY MOUTH TWICE DAILY... 90 Active Levothyroxine Sodium 25 MCG Orally Once a day 1 tablet 24h Active Vitamin D-3 1000 UNIT Orally Once a day 1 capsule 24h Active Prevacid 30 MG Orally Once a day 1 capsule 24h 0 Active Singulair 10 mg Orally Once a day 1 tablet in the evening 24h December, 0 days Active TRUEplus Lancets 28G - USE TO CHECK BLOOD SUGAR FOUR (4) TIMES DAILY... Active RESULTS No Results PROCEDURES No Known [...]
--- OUTSIDE RECORDS SUMMARY | 2018-02-13 10:59 | XMS REPORT ---
Author Author DYLLAN GAMING [facility] Address [address] [place] [address] Care Team Providers Care Ballistics Teacher Name Role Phone DYLLAN GAMING Unavailable PROBLEMS Type Condition ICD9-CM Code HMD07-TZ Code Onset Dates Condition Status SNOMED Code Problem Neutrophilia D72.9 Active 151348461 Problem Lymphocytosis D72.820 Active 59967591 Problem Chronic constipation K59.00 Active 194382636 Problem Diabetes type 2, uncontrolled E11.65 Active 887532727 Problem Anxiety F41.9 Active 51119005 Problem Diabetes type 2, controlled E11.9 Active 62669088 Problem Gastroparesis due to secondary diabetes E13.43 Active 2770499 Problem Diabetic polyneuropathy associated with type 2 diabetes mellitus E11.42 Active 78991159 Problem Acquired hypothyroidism E03.9 Active 906590422 Problem Post traumatic stress disorder (PTSD) F43.10 Active 93381151 Problem Other chronic pain G89.29 Active 28431566 Problem Diarrhea, unspecified type R19.7 Active 52679753 Problem PTSD (post-traumatic stress disorder) F43.10 Active 22897176 Problem Stress incontinence N39.3 Active 06049395 Problem Lumbago with sciatica, right side M54.41 Active 222042914 Problem Urge incontinence of urine N39.41 Active 92740571 Problem Leukocytosis, unspecified type D72.829 Active 914412095 Problem Sleep apnea in adult G47.30 Active 67114899 Problem Pain in right knee M25.561 Active 806032446393552 Problem Pain in left knee M25.562 Active 184200621935506 Problem Anxiety about health F41.8 Active 705185443 Problem Mixed stress and urge urinary incontinence N39.46 Active 346377132 Problem Mendez''s esophagus with dysplasia K22.719 Active 141842236 Problem Current moderate episode of major depressive disorder without prior episode F32.1 Active 10949572 Problem Syncope, unspecified syncope type R55 Active 123315760 Problem Low back pain M54.5 Active 675377004 Problem Irritable bowel syndrome with both constipation and diarrhea K58.2 Active 23994089 Problem Constipation by delayed colonic transit K59.01 Active 15574226 Problem Left foot pain M79.672 Active 48299256 Problem GERD without esophagitis K21.9 Active 800152892 Problem Chronic diarrhea K52.9 Active 085537651 Problem Gastric pain R10.9 Active 640788047 Problem Gastroparesis K31.84 Active 817089180 ALLERGIES Substance Reaction Event Type Date Status Sulfamethoxazole-Trimethoprim swelling Drug Allergy Mar, Active ENCOUNTERS Encounter Location Date Diagnosis [facility] [id number] [place] [address]- [address] December, [id number] [place] [address] [id number] Nov, Diabetic polyneuropathy associated with type 2 diabetes mellitus E11.42 ; Anxiety F41.9 and Other chronic pain G89.29 [id number] [place] [address] [id number] Oct, Other chronic pain G89.29 ; Anxiety F41.9 and Diabetic polyneuropathy associated with type 2 diabetes mellitus E11.[address] [place] [address] [id number] Oct, Neutrophilia D72.9 [id number] [place] [address] [id number] Sep, Neutrophilia D72.9 ; Lymphocytosis D72.820 and Leukocytosis, unspecified type D72.829 [address] [place] [address] [id number] Sep, Leukocytosis, unspecified type D72.829 ; Vaginal discharge N89.8 ; Cramp of toe R25.2 ; Sleep apnea in adult G47.30 ; Diabetic polyneuropathy associated with type 2 diabetes mellitus E11.42 ; Anxiety F41.9 ; Other chronic pain G89.29 ; Acquired hypothyroidism E03.9 ; Gastroparesis K31.84 ; PTSD (post- traumatic stress disorder) F43.10 ; Sinus congestion R09.81 and BMI 40.0-44.9, adult Z68.41 [address] [id number] 14 Sep, 2018 Syncope, unspecified syncope type R55 ; BMI [...] R09.89 and Swelling of lower extremity M79.[address] [place] [address] [id number] Aug, Carbuncle and furuncle of buttock L02.33 ; Radicular pain of lower extremity M54.10 ; Mixed stress and urge urinary incontinence N39.46 ; Nail ingrowing L60.0 and BMI 40.0-44.9, adult Z68.41 [facility] [address] [address] Aug, [address] [place] [address] [id number] Aug, Diabetic polyneuropathy associated with type 2 diabetes mellitus E11.42 ; Anxiety F41.9 and Other chronic pain G89.[address] [id number] [id number] Jul, [facility] [id number] [place] [address] 06832- [address]326 Jul, [address] [id number] [id number] Jul, Diabetic polyneuropathy associated with type 2 diabetes mellitus E11.42 ; Anxiety F41.9 and Other chronic pain G89.29 [id number] [place] [address] [id number] Jul, BMI 40.0-44.9, adult Z68.41 ; Diabetes type 2, controlled E11.9 ; Sinus congestion R09.81 ; Sore throat J02.9 ; Gastroparesis K31.84 ; Mendez''s esophagus with dysplasia K22.719 ; Lumbago with sciatica, right side M54.41 and Other chronic pain G89.29 [facility] [address] [address]- [address] Jul, [address] [place] [address] [id number] Jun, Acute non-recurrent frontal sinusitis J01.10 ; Acute diffuse otitis externa of both ears H60.313 and BMI 40.0-44.9, adult Z68.41 [id number] [place] [address] [id number] Jun, Diabetic polyneuropathy associated with type 2 diabetes mellitus E11.42 ; Other chronic pain G89.29 and Anxiety F41.9 [address] [place] [address] [id number] Jun, [id number] [place] [address] [id number] Apr, Anxiety F41.9 ; Gastroparesis K31.84 ; Other chronic pain G89.29 ; PTSD ( post-traumatic stress disorder) F43.10 ; Acquired hypothyroidism E03.9 ; Diabetic polyneuropathy associated with type 2 diabetes mellitus E11.42 ; Chronic seasonal allergic rhinitis, unspecified trigger J30.2 ; Urge incontinence of urine N39.41 ; Acute diffuse otitis externa of right ear H60.311 and BMI 45.0-49.9, adult Z68.42 [id number] [place] [address] [id number] 14 Apr, 2017 Chronic seasonal allergic rhinitis, unspecified trigger J30.2 and Encounter for immunization Z23 [address] [place] [address] [id number] 11 Apr, 2017 Diabetic polyneuropathy associated with type 2 diabetes mellitus E11.42 ; Acute pain of right knee M25.561 and Post traumatic stress disorder (PTSD) F43.10 [facility] [address] 50737[address] Mar, [facility] [id number] [place] [address] [id number] Mar, Well woman exam with routine gynecological exam Z01.419 ; Stress incontinence N39.3 ; High risk sexual behavior Z72.51 ; Screening breast examination Z12.31 and Nausea R11.0 [facility] [id number] [place] [address] [id number] Mar, Other chronic pain G89.29 ; Bladder leak R32 ; Sore throat J02.9 ; Post traumatic stress disorder (PTSD) F43.10 and Acute pain of right knee M25.561 [facility] [address] [place] [address] [id number] Feb, [id number] [place] [address] [id number] Feb, Acquired hypothyroidism E03.9 ; Diabetic polyneuropathy associated with type 2 diabetes mellitus E11.42 ; Other chronic pain G89.29 ; Diarrhea, unspecified type R19.7 ; GERD without esophagitis K21.9 ; Post traumatic stress disorder (PTSD) F43.10 ; Intentional self-harm by blunt object, subsequent encounter X79.XXXD and Acute pain of right knee M25.561 [facility] [id number] [id number] Feb, Acquired hypothyroidism E03.9 [facility] [id number] [place] [address] [id number] Jan, Acquired hypothyroidism E03.9 ; Diabetic polyneuropathy associated with type 2 diabetes mellitus E11.42 ; Other chronic pain G89.29 ; Diarrhea, unspecified type R19.7 ; GERD without esophagitis K21.9 ; Post traumatic stress disorder (PTSD) F43.10 ; Intentional self-harm by blunt object, subsequent encounter X79.XXXD and Acute pain of right knee M25.561 [address] [place] [address] [id number] Jan, Acquired hypothyroidism E03.9 ; Diabetic polyneuropathy associated with type 2 diabetes mellitus E11.42 ; Other chronic pain G89.29 ; Diarrhea, unspecified type R19.7 ; GERD without esophagitis K21.9 ; Post traumatic stress disorder (PTSD) F43.10 and Intentional self-harm by blunt object, initial encounter X79.XXXA [id number] [place] [id number] Jan, [address] [id number] December, PTSD (post-traumatic stress disorder) F43.10 ; Gastroparesis due to secondary diabetes E13.43 ; Chronic diarrhea K52.9 ; Non-seasonal allergic rhinitis due to pollen J30.1 and Constipation by delayed colonic transit K59.01 [facility] [address] [address]- [address] December, [id number] [place] [address] [id number] December, Diabetic polyneuropathy associated with type 2 diabetes mellitus E11.42 [id number] [place] [address] [id number] December, Diabetes type 2, uncontrolled E11.65 ; GERD without esophagitis K21.9 and PTSD (post-traumatic stress disorder) F43.10 [id number] [place] [address] [id number] Nov, Anxiety F41.9 [id number] [place] [address] [id number] Nov, Diabetic polyneuropathy associated with type 2 diabetes mellitus E11.42 [id number] [place] [address] [id number] Oct, Anxiety F41.9 [id number] [place] [address] [id number] Sep, Gastroparesis due to secondary diabetes E13.43 and Anxiety F41.9 [facility] [address] [address]- [address] Aug, [id number] [place] [address] [id number] Aug, Chronic constipation K59.09 and Diarrhea, unspecified type R19.7 [facility] [id number] [place] [address] [id number] Aug, Diabetic polyneuropathy associated with type 2 diabetes mellitus E11.42 [facility] [id number] [place] [address] [id number] 16 Aug, 2016 Gastroparesis K31.84 ; Diabetes type 2, uncontrolled E11.65 ; Gastric pain R10.9 ; Irritable bowel syndrome with both constipation and diarrhea K58.2 and Chronic constipation K59.00 [id number] [place] [address] [id number] Aug, Dark stools R19.5 [id number] [place] [address] [id number] 10 Aug, 2016 Gastroparesis K31.84 and Chronic constipation K59.00 [id number] [place] [address] [id number] 09 Aug, 2016 Dark stools R19.5 ; Diabetes type 2, uncontrolled E11.65 ; Gastroparesis due to secondary diabetes E13.43 and Constipation by delayed colonic transit K59.01 [address] [id number] [place] [address] [id number] Aug, Anxiety F41.9 [id number] [place] [address] [id number] Aug, Nausea R11.0 ; Left foot pain M79.672 ; Pain in right knee M25.561 ; Low back pain M54.5 and Other chronic pain G89.29 [facility] [id number] [place] [address] [id number] 2488 Jul, [address] [id number] Jul, [facility] [id number] [place] [address] [id number]- 5769 Jul, PTSD (post-traumatic stress disorder) F43.10 [address] [id number] Jul, Anxiety F41.9 [facility] [address] 254784[address] Jul, [facility] Laith0 [facility] [id number] [id number] Jul, PTSD (post-traumatic stress disorder) F43.10 [facility] [id number] [place] [id number] Jul, Diabetes type 2, uncontrolled E11.65 ; Left foot pain M79.672 ; Toe pain, right M79.674 ; Low back pain M54.5 ; Other chronic pain G89.29 ; Pain in right knee M25.561 ; PTSD (post-traumatic stress disorder) F43.10 and Anxiety F41.9 [facility] [id number] [place] [id number] Jul, [facility] [id number] [place] [address] [id number] Jun, PTSD (post-traumatic stress disorder) F43.10 [facility] [id number] [place] [id number] Jun, [facility] [address], [place] [address]- 9[address] Jun, [facility] [id number] [place] [id number] Jun, PTSD (post-traumatic stress disorder) F43.10 [facility] [id number] [place] [id number] Jun, [facility] [id number] [place] [id number] Jun, Cellulitis of right lower extremity L03.115 ; Other chronic pain G89.29 ; Pain in right knee M25.561 ; Pain in left knee M25.562 and Anxiety about health F41.8 [facility] [id number] [place] [id number] May, Anxiety F41.9 [facility] [id number] [place] [address] [id number] May, PTSD (post-traumatic stress disorder) F43.10 [facility] [id number] [place] [address] [id number] May, Diabetes type 2, uncontrolled E11.65 ; Diabetic polyneuropathy associated with type 2 diabetes mellitus E11.42 ; Gastroparesis due to secondary diabetes E13.43 ; Anxiety F41.9 ; Other chronic pain G89.29 ; Pain in right knee M25.561 ; Pain in left knee M25.562 ; Acquired hypothyroidism E03.9 and Chronic constipation K59.00 [facility] [address] [address]- [address] May, [facility] [address] [id number] May, [facility] [address] [id number] Apr, [facility] [address] [id number] Apr, [facility] [address] 589415- 3034 Apr, [facility] [address] [id number] Apr, [facility] [address] 22696- 6314 Apr, [facility] [id number] [place] [address] [id number] Apr, Diabetes type 2, uncontrolled E11.65 ; Diabetic polyneuropathy associated with type 2 diabetes mellitus E11.42 ; Gastroparesis due to secondary diabetes E13.43 and Encounter for immunization Z23 [facility] [place] [id number] [place] [address] [id number] Apr, Gastroparesis K31.84 and Diabetes type 2, controlled E11.9 [facility] [place] [id number] [place] [address] [id number] Mar, Diabetes type 2, controlled E11.9 ; Chronic constipation K59.00 and Gastroparesis K31.84 [facility] [place] [address] [id number] [place] [id number] Mar, [facility] [address] [id number] [place] [id number] Mar, Diabetes type 2, controlled E11.9 [facility] [address] [id number] [place] [id number] Mar, [facility] [address] [id number] [place] [id number] Feb, [facility] [address] [id number] [place] [id number] Feb, [facility] [address] [id number] [place] [id number] Feb, Diabetes type 2, controlled E11.9 [facility] [address] [id number] [place] [id number] Feb, [facility] [address] [id number] [place] [id number] Jan, [facility] [address] [id number] [place] [id number] Jan, [facility] [place] [address] [id number] [place] [id number] Jan, Diabetes type 2, controlled E11.9 [facility] [place] [address] [id number] [place] [id number] December, [facility] [place] [address] [id number] [place] [id number] December, Diabetes type 2, uncontrolled E11.65 and Diabetes type 2, controlled E11.9 [facility] [address] [id number] [place] [id number] December, [facility] [address] [id number] [place] [id number] Nov, Wound of toenail, subsequent encounter S91.209D and Plantar fascia syndrome M72.2 [facility] [address] [id number] [place] [id number] Nov, Ingrown toenail L60.0 [facility] [place] [id number] [place] [address] [id number] Nov, Wound of toenail, subsequent encounter S91.209D [address] [id number] [place] [address] [id number] Nov, Tinea unguium B35.1 and Ingrowing nail L60.0 [address] [address] [id number] Nov, Ingrown toenail L60.[address] [id number] Nov, Cellulitis of right lower extremity L03.115 [id number] [place] [address] [id number] Nov, Ingrown toenail L60.0 and Diabetes type 2, controlled E11.[address] [id number] Oct, [address] [id number] Oct, Anxiety F41.9 [id number] [place] [address] [id number] Sep, [address] [id number] Sep, Elevated white blood cell count D72.829 and Multiple joint pain M25.50 [id number] [place] [address] [id number] Sep, Diabetes type 2, uncontrolled E11.65 ; Onychomycosis B35.1 ; Skin candidiasis B37.2 and Anxiety F41.9 [id number] [place] [address] [id number] Aug, [id number] [place] [address] [id number] Aug, [address] [id number] Jul, Diabetes type 2, uncontrolled E11.[address] [id number] Jul, [address] [id number] Jul, Diabetes type 2, uncontrolled E11.65 [facility] [place] [address] [id number] [id number] Jul, [facility]00565100[place] [id number] Jun, [facility] [id number] 734023[address]- [address] Jun, [facility] [address] [place] [address] [id number] Jun, Diabetes type 2, uncontrolled E11.65 ; Chronic constipation K59.00 and Anxiety F41.9 [facility] [address] [id number] [id number] Jun, Plantar fascia syndrome M72.2 [address] [id number] May, [address] [place] [address] [id number] May, [address]100[place] [id number] May, Encounter for immunization Z23 ; Diabetes type 2, uncontrolled E11.65 and Depression with anxiety F41.8 [address]005[address]100[place] [id number] Apr, Chronic constipation 564.00 ; Insomnia, unspecified 780.52 ; Diabetes mellitus, type 2 250.00 ; PTSD (post-traumatic stress disorder) 309.81 and Anxiety and depression 300.00 [facility] 604 [facility] [id number] [id number] Apr, [id number] [id number] Apr, Anxiety and depression 300.00 and PTSD (post-traumatic stress disorder) 309.81 [id number] [id number] Mar, [id number] [id number] Mar, Follow up V67.9 ; Social anxiety disorder 300.23 and Acid reflux 530.81 [facility] [id number] [place] [address] [id number] Feb, [facility] [id number] [place] [address] [id number] Feb, [facility] [id number] [place] [address] [id number] Feb, [facility] [id number] [place] [address] [id number] Feb, [facility] [id number] [place] [address] 34304- 2546 Feb, [facility] [id number] [place] [address] [id number] Feb, Unspecified hereditary and idiopathic peripheral neuropathy 356.9 ; Heartburn 787.1 ; Uncontrolled type 2 diabetes with neuropathy 250.62 ; Otitis externa 380.10 and HEP B (ADULT) DX V05.3 [facility] [id number] [place] [address] [id number] Jan, [facility] [address] [place] [address] [id number] December, [facility] [id number] [place] [address] 33840- 8226 Nov, [facility] [id number] [place] [address] 17743- 1665 Nov, [facility] [id number] [place] [address] 16338- 8596 Oct, [facility] [id number] [place] [address] 55685- 7910 Oct, [facility] [id number] [place] [address] [id number] Oct, [facility] [id number] [place] [address] 70185- 5216 Oct, [facility] [id number] [place] [address] 21174- 6821 Oct, [facility] [address] [id number], [place] [address]- 0686 Oct, [facility] [address] [facility] [id number] [place] [id number] Oct, [facility] [address] [facility] [place] [id number], [place] [address]- 7897 Oct, [facility] [address] [facility] [id number] [place] [id number] Oct, [facility] [address] [facility] [place] [id number], [place] [address]- 2012 Oct, [facility] [address] [id number] [place] [id number] Oct, [facility] [address] [facility] [id number] [place] [id number] Oct, [facility] [address], [place] [address]- 9378 Oct, [facility] [address] [facility] [place] [id number], [place] [address]- 9236 Oct, [facility] [address] [facility] [id number] [place] [id number] Oct, [facility] [address] [facility] [place] [id number], [place] [id number]- 1457 Oct, [facility] [address] [id number], [place] [address]- 1155 Sep, [facility] [address] [facility] [place] [id number], [place] 23417869- 9172 Sep, [facility] [address] [facility] [id number] [place] [id number] Sep, [facility] [address] [facility] [place] [id number], [place] 47039470- 6431 Sep, [facility] [address] [facility] [place] [id number], [place] 11374642- 7437 Sep, [facility] [address] [facility] [place] [id number], [place] [address]- 5536 Sep, [facility] [address] [id number], [place] [address]- 2198 Aug, [facility] [address] [facility] [id number] [place] [id number] Aug, [facility] [address] [facility] [id number], [place] [address] Aug, [facility] [address] [facility] [id number], [place] [address] Aug, [facility] [address] [facility] [id number] [place] [id number] Aug, [facility] [address] [facility] [id number], [place] [address] Aug, [facility] [address] [id number], [place] [address] Aug, [facility] [address] [facility] [id number], [place] [address] Aug, [facility] [address] [id number] [place] [id number] Aug, [facility] [address] [facility] [id number] [place] [id number] Aug, [facility] [address] [facility] [id number], [place] [address] Aug, [facility] [address] [facility] [id number] [address] Aug, [facility] [address] [facility] [id number] [place] [address] Jul, [facility] [place] [facility] [address] [facility] [id number], [place] [address] Jul, [facility] [address] [facility] [id number] [place] [address] Jun, [facility] [place] [facility] [address] [facility] [id number], [place] [address] Jun, [facility] [address] [id number] [place] [address] Jun, [facility] [place] [facility] [address] [facility] [id number][place] [address] Jun, [facility] [address] [facility] [id number] [place] [address] Jun, [facility] [place] [facility] [address] [facility] [id number], [place] [address] Jun, [facility] [place] [facility] [address] [facility] [id number] [place] [address] May, [facility] [place] [facility] [address] [facility] [id number] [address] May, [facility] [address] [facility] [id number] [place] [address] May, [facility] [place] [facility] [id number] [address] May, [facility] [address] [facility] [id number] [place] [address] Apr, [facility] [place] [facility] [address] [facility] [id number], [place] [address] Apr, [facility] [address] [facility] [id number] [place] [address] Apr, [facility] [address] [facility] [id number] [place] [address] Apr, [facility] [place] [facility] [address] [facility] [id number], [place] [address] Apr, [facility] [place] [facility] [address] [facility] [id number], [place] 1248[address]85[place] [address] Apr, [facility] [address] [facility] [id number] [place] [address] Apr, [facility] [place] [facility] [address] [facility] [id number], [place] [address]491[place] [address] Apr, [facility] [address] [facility] [id number] [place] [address] Apr, [facility] [place] [facility] [address] [id number] [place] [address] Apr, [facility] [address] [id number] [place] [id number] Feb, [facility] [place] [facility] [address] [facility] [id number] [place] [address] Feb, [facility] [address] [id number] [place] [address] Feb, [facility] [place] [facility] [address] [id number] [place] [address] Feb, [facility] [place] [facility] [address] [facility] [id number] [place] [address] Jan, [facility] [place] [facility] [address] [facility] [id number] [place] [address] Jan, [facility] [place] [facility] [address] [facility] [id number] [place] [address] Jan, [facility] [address] [id number] [place] [id number] Jan, [facility] [place] [facility] [address] [facility] [id number] [place] Jan, [facility] [place] [facility] [address] [facility] [id number][place] [address] Jan, [facility] [address] [id number] [place] [id number] Jan, [facility] [place] [facility] [address] [id number], [place] [address] Jan, [facility] [address] [id number] [place] [address] December, [facility] [place] [facility] [address] [facility] [id number], [place] [address] December, [facility] [address] [id number] [place] [address] December, [facility] [address] [id number] [place] [address] December, [facility] [address] [facility] [id number] [place] [address] December, [facility] [place] [facility] [address] [facility] [id number] [place] [address] December, [facility] [place] [facility] [address] [facility] [id number] [place] [address] December, [facility] [place] [facility] [address] [facility] [id number] [place] [address] December, [facility] [address] [facility] [id number] [place] [address] Nov, [facility] [place] [facility] [address] [facility] [id number] [place] [address] Nov, [facility] [address] [facility] [id number] [place] [address] Oct, [facility] [place] [facility] [address] [facility] [id number], [place] [address] Oct, [facility] [place] [facility] [address] [facility] [id number] [place] [address] Sep, [facility] [place] [facility] [address] [facility] [id number], [place] [address] Sep, [facility] [address] [facility] [id number] [place] 877[address]1343 Aug, [facility] [address] [facility] [id number] [place] [id number] Aug, [facility] [place] [facility] [address] [facility] [id number], [place] [address] Aug, [facility] [place] [facility] [address] [facility] [id number] [place] [address]- [address] Aug, [facility] [address] [facility] [id number] [place] 869163983 Jul, [facility] [place] [facility] [address] [facility] [id number], [place] [address] Jul, [facility] [address] [id number] [place] [address] Jul, [facility] [address] [facility] [id number], [place] [address] Jul, [facility] [address] [id number] [place] [id number] Jun, [facility] [address] [facility] [id number], [place] [address] Jun, [facility] [address] [id number] [place] [address] Apr, [facility] [address] [id number] [place] [address] Mar, [facility] [address] [id number] [place] [address] Mar, [facility] [address] [id number] [place] [address] Mar, [facility] [address] [id number] [place] [id number] Mar, [facility] [address] [id number] [place] [address]79[address] Feb, [facility] [address] [id number] [place] [address] Jan, [facility] [address] [id number] [place] [address] Jan, [facility] [address] [id number] [place] [address]16[address] Jan, [facility] [address] [id number] [place] [address] Jan, [facility] [address] [id number] [place] [address] December, [facility] [address] [id number] [place] [address] December, [facility] [address] [id number] [place] [address]384[address] December, [facility] [address] [facility] [id number], [place] [address] Jul, [facility] [address] [id number] [place] [address] Jul, [facility] [address] [id number] [place] [address]197 Jul, [facility] [address] [id number] [place] [address] Jul, [facility] [address] [id number] [place] [address] Jul, [facility] [place] [facility] [address] [id number][place] [address]- [address] Jul, [facility] [place] [facility] [address] [facility] [id number], [place] [address] Jul, [facility] [place] [facility] [address] [facility] [id number], [place] [address]- [address] Jul, [facility] [address] [facility] [id number] [place] [address] Jun, [facility] [place] [facility] [address] [facility] [id number], [place] [address]- [address] Jun, [facility] [place] [facility] [address] [facility] [id number], [place] [address]- [address] Jul, [facility] [place] [facility] [address] [facility] [id number], [place] [address] Jul, [facility] [place] [facility] [address] [facility] [id number], [place] [address] Jul, [facility] [place] [facility] [address] [facility] [id number], [place] [address]- [address] Jul, [facility] [place] [facility] [address] [facility] [id number], [place] [address]- 9607 Jun, [facility] [place] [facility] [address] [facility] [id number], [place] [address] Jun, [facility] [place] [facility] [address] [facility] [id number], [place]11579- [address]67 Jun, [facility] [place] [facility] [address] [facility] [id number] [place] [address]- [address] 04 Jun, 2010 [facility] [place] [facility] [address] [id number] [place] [address]- [address]494 04 Jun, 2010 [facility] [place] [facility] [address] [id number] [place] [address]- 9[address] 27 May, 2010 [facility] [place] [facility] [address] [id number] [place] [address]- 1106 19 May, 2010 [facility] [place] [facility] [address] [id number] [place] [address]- 9765 13 May, 2010 [facility] [place] [facility] [address] [id number] [place] [address], [place] [address]- [address] 13 May, 2010 [facility] [place] [facility] [address] [id number] [place] [address]- [address]387 16 Nov, 2009 [facility] [place] [facility] [address] [id number] [place] [address]- 4596 28 Jul, 2009 [facility] [place] [facility] [address] [id number] [place] [address]- [address]85 25 Jun, 2009 [facility] [place] [facility] [address] [id number] [place] [address]- 56[address] 09 Jun, 2009 [facility] [place] [facility] [address] [facility] [id number] [place] [address]- 2535 29 May, 2009 [facility] [place] [facility] [address] [id number] [place] [address]- 8034 28 May, 2009 [facility] [place] [facility] [address] [id number], [place] [address]- [address]43 26 May, 2009 [facility] [place] [facility] [address] [id number] [place] [address]- 3055 14 May, 2009 [facility] [place] [facility] [address] [id number], [place] [address]- [address] 14 May, 2009 [facility] [place] [facility] [address] [id number], [place] [address]- [address] 12 May, 2009 [facility] [address] [facility] [id number], [place] [address]- [address] Apr, [facility] [address] [facility] [id number], [place] [address]- [address] Jan, IMMUNIZATIONS No Known Immunizations SOCIAL HISTORY Never Assessed REASON FOR VISIT 4 week f/u Pain management (chronic) Marlene MISHRA PLAN OF CARE Activity Details Follow Up 4 Weeks Reason:CHM Pain (WWE anytime) VITAL SIGNS Height 62 in 2017-03-21 Weight 254 lbs 2017-03-21 Temperature 98.1 degrees Fahrenheit 2017-03-21 Heart Rate 88 bpm 2017-03-21 Respiratory Rate 16 2017-03-21 BMI 46.45 kg/m2 2017-03-21 Blood pressure systolic 122 mmHg 2017-03-21 Blood pressure diastolic 70 mmHg 2017-03-21 MEDICATIONS Medication Instructions Dosage Frequency Start Date End Date Duration Status Prevacid 30 MG Orally Once a day 1 capsule 24h Active Oxybutynin Chloride 5 mg Orally Twice a day-must increase water intake 1 tablet Mar, Mar, 0 days Active Blood Glucose Test Strip ... subcutaneously 4 times a day as directed 6h Jan, Active HydrOXYzine HCl 50 MG Orally 3 times a day 1/2 in am 1/2 tab noon and 1 tablet at bedtime 8h 90 Active Glucometer 1 glucometer as directed Jan, Active Tramadol HCl 50 mg Orally every 6 hrs 1 tablet as needed 6h 0 Active Sucralfate 1 GM Orally twice per day 1 tablet on an empty stomach and crush and dissolve in water 30mins before taking 0 Active Linzess 145 MCG Orally Once a day (DX: chronic constipation/abd pain) 1 capsule May, Active Zofran 8 MG Orally Once a day as needed for nausea 1 tablet Active Escitalopram Oxalate 20 mg Orally Once a day 1 tablet 24h Active Voltaren 1 % Transdermal 2 times a day as directed 12h 0 Active Mobic 7.5 MG Orally twice a day 1 tablet 12h Jun, Active BusPIRone HCl 10 MG TAKE ONE (1) TABLET BY MOUTH TWICE DAILY... 90 Active Clonazepam 1 MG Orally Once a day 1.5 tabs in pm 24h 0 Active Lisinopril 2.5 MG TAKE ONE (1) TABLET BY MOUTH DAILY... 90 Active Lyrica 150 MG Orally 3 times a day 1 capsule 8h 0 days Active TRUEplus Lancets 28G - USE TO CHECK BLOOD SUGAR FOUR (4) TIMES DAILY... Active Trulicity 1.5 MG/0.5ML Subcutaneous once weekly 0.5 ml Active Vitamin D-3 1000 UNIT Orally Once a day 1 capsule 24h Active HydrOXYzine HCl 50 MG Orally 3 times a day 1/2 in am 1/2 tab noon and 1 tablet at bedtime 8h Active Hydrochlorothiazide 12.5 MG TAKE ONE (1) CAPSULE BY MOUTH ONCE DAILY... Active Levothyroxine Sodium 25 MCG Orally Once a day 1 tablet 24h Active Pen [place] 29G X 12MM subcutaneous 4 times a day Inject 6h Active BusPIRone HCl 10 MG TAKE ONE (1) TABLET BY MOUTH TWICE DAILY... Active Fluticasone Propionate 50 MCG/ACT Nasally Once a day 1 spray in each nostril 24h Active Metformin HCl 850 MG Orally twice a day 1 tablet with a meal 12h Jul, Active Singulair 10 mg Orally Once a day 1 tablet in the evening 24h December, 0 days Active RESULTS Name Result Date Reference Range UA LONG DIP (IN HOUSE) 2017-03-21 Lot # [id number] Exp date 10/2017 Clarity clear Color yellow Odor no GLU neg SAMAN neg KET neg SG 1.020 BLO neg pH 5.0 Protein neg URO 0.2 NIT neg SANJAY neg Lot # Exp date PROCEDURES Procedure Date Ordered Result Body Site URINALYSIS, AUTO, W/O SCOPE Mar 21, 2017 INSTRUCTIONS MEDICATIONS ADMINISTERED No Known Medications [...]
--- OUTSIDE RECORDS SUMMARY | 2018-02-13 11:00 | XMS REPORT ---
Author Author YDLLAN GAMING [facility] Address [address] [place] [address] Care Team Providers Care Rn Hemodialysis Charge Name Role Phone DYLLAN GAMING Unavailable PROBLEMS Type Condition ICD9-CM Code [id number] Code Onset Dates Condition Status SNOMED Code Problem Irritable bowel syndrome with both constipation and diarrhea K58.2 Active 92609660 Problem Gastroparesis K31.84 Active 573449712 Problem Gastric pain R10.9 Active 796296905 Problem Urge incontinence of urine N39.41 Active 22304899 Problem Gastroparesis due to secondary diabetes E13.43 Active 7146488 Problem Stress incontinence N39.3 Active 16596994 Problem Diabetes type 2, controlled E11.9 Active 28598228 Problem Anxiety F41.9 Active 37783832 Problem Chronic diarrhea K52.9 Active 732123441 Problem GERD without esophagitis K21.9 Active 913761543 Problem Diarrhea, unspecified type R19.7 Active 93171580 Problem Post traumatic stress disorder (PTSD) F43.10 Active 25332824 Problem Other chronic pain G89.29 Active 72325387 Problem PTSD (post-traumatic stress disorder) F43.10 Active 06698953 Problem Diabetic polyneuropathy associated with type 2 diabetes mellitus E11.42 Active 19789272 Problem Acquired hypothyroidism E03.9 Active 089195337 Problem Pain in right knee M25.561 Active 247691207135888 Problem Constipation by delayed colonic transit K59.01 Active 06437972 Problem Diabetes type 2, uncontrolled E11.65 Active 041726250 Problem Anxiety about health F41.8 Active 980389074 Problem Left foot pain M79.672 Active 88233238 Problem Chronic constipation K59.00 Active 153973693 Problem Pain in left knee M25.562 Active 032371428403819 Problem Low back pain M54.5 Active 257299946 ALLERGIES Substance Reaction Event Type Date Status Sulfamethoxazole-Trimethoprim swelling Drug Allergy 03 May, 2017 Active SOCIAL HISTORY Never Assessed PLAN OF CARE Activity Details Follow Up 2-3 weeks Reason:depression VITAL SIGNS Height 62 in 2016-12-08 Weight 252.2 lbs 2016-12-08 Temperature 98.5 degrees Fahrenheit 2016-12-08 Heart Rate 100 bpm 2016-12-08 Respiratory Rate 18 2016-12-08 BMI 46.12 kg/m2 2016-12-08 Blood pressure systolic 118 mmHg 2016-12-08 Blood pressure diastolic 62 mmHg 2016-12-08 MEDICATIONS Medication Instructions Dosage Frequency Start Date End Date Duration Status Sucralfate 1 GM Orally Once a day at bedtime 1 tablet on an empty stomach 90 days Active Voltaren 1 % Transdermal 2 times a day as directed 12h Active Lisinopril 2.5 MG TAKE ONE (1) TABLET BY MOUTH DAILY... 90 Active HydrOXYzine HCl 50 MG Orally 3 times a day 1/2 in am 1/2 tab noon and 1 tablet at bedtime 8h 90 Active Vitamin D-3 1000 UNIT Orally Once a day 1 capsule 24h Active BusPIRone HCl 10 MG TAKE ONE (1) TABLET BY MOUTH TWICE DAILY... 90 Active Hydrochlorothiazide 12.5 MG TAKE ONE (1) CAPSULE BY MOUTH ONCE DAILY... Active MiraLax Orally 2 times a day 1 packet mixed with 8 ounces of fluid 12h Active Prevacid 30 MG Orally Once a day 1 capsule 24h 0 Active Fluticasone Propionate 50 MCG/ACT Nasally Once a day 1 spray in each nostril 24h 15 Nov, 2015 Active Glucometer 1 glucometer as directed Jan, Active Metformin HCl 850 MG Orally twice a day 1 tablet with a meal 12h Jul, Active Clonazepam 1 MG Orally Once a day 1.5 tabs in pm 24h Sep, 0 days Active Trulicity 1.5 MG/0.5ML Subcutaneous once weekly 0.5 ml Active Escitalopram Oxalate 20 mg Orally Once a day 1 tablet 24h December, 0 days Active Blood Glucose Test Strip ... subcutaneously 4 times a day as directed 6h Jan, Active Zofran 8 MG Orally Once a day as needed for nausea 1 tablet Aug, Active Lyrica 150 MG Orally 3 times a day 1 capsule 8h 24 Sep, 2015 0 days Active TRUEplus Lancets 28G - USE TO CHECK BLOOD SUGAR FOUR (4) TIMES DAILY... Active Mobic 7.5 MG Orally twice a day 1 tablet 12h Jun, Active Linzess 145 MCG Orally Once a day (DX: chronic constipation/abd pain) 1 capsule May, Active Levothyroxine Sodium 25 MCG Orally Once a day 1 tablet 24h Jul, Active Pen [place] 29G X 12MM subcutaneous 4 times a day Inject 6h Active RESULTS Name Result Date Reference Range A1C (IN HOUSE) 2016-12-08 A1C IN HOUSE 6.8 4.3 - 5.6 % Previous A1c 7.4 Lot [id number] Exp date 08/26 PROCEDURES Procedure Date Ordered Result Body Site GLYCATED HEMOGLOBIN TEST December 08, 2016 IMMUNIZATIONS No Known Immunizations MEDICAL (GENERAL) HISTORY [...]
--- OUTSIDE RECORDS SUMMARY | 2018-02-13 11:01 | XMS REPORT ---
Author Author DYLLAN GAMING [facility] Address [address] [place] [address] Care Team Providers Care Rail Operations Controller Name Role Phone DYLLAN GAMING Unavailable PROBLEMS Type Condition ICD9-CM Code [id number] Code Onset Dates Condition Status SNOMED Code Problem Gastric pain R10.9 Active 700658368 Problem GERD without esophagitis K21.9 Active 854491005 Problem Gastroparesis K31.84 Active 863736645 Problem Leukocytosis, unspecified type D72.829 Active 981065516 Problem Chronic constipation K59.00 Active 470226922 Problem Mixed hyperlipidemia E78.2 Active 887611298 Problem Mixed stress and urge urinary incontinence N39.46 Active 600934740 Problem Mendez''s esophagus with dysplasia K22.719 Active 391551778 Problem Sleep apnea in adult G47.30 Active 28661447 Problem Current moderate episode of major depressive disorder without prior episode F32.1 Active 58212437 Problem Diabetic polyneuropathy associated with type 2 diabetes mellitus E11.42 Active 28397949 Problem Other chronic pain G89.29 Active 23360092 Problem Anxiety F41.9 Active 99662969 Problem Diabetes type 2, controlled E11.9 Active 20342628 Problem Anxiety about health F41.8 Active 206509729 Problem Low back pain M54.5 Active 374468886 Problem Acquired hypothyroidism E03.9 Active 944067841 Problem Left foot pain M79.672 Active 24285165 Problem PTSD (post-traumatic stress disorder) F43.10 Active 05761648 Problem Irritable bowel syndrome with both constipation and diarrhea K58.2 Active 07569650 ALLERGIES No Information ENCOUNTERS Encounter Location Date Diagnosis [facility] [place] [address] [facility] [id number] [place] [id number] Mar, [facility] [id number] [place] [address] [id number] Jan, BMI 40.0-44.9, adult Z68.41 ; Right foot pain M79.671 ; Irritable bowel syndrome with both constipation and diarrhea K58.2 ; Diabetic polyneuropathy associated with type 2 diabetes mellitus E11.42 ; Other chronic pain G89.29 ; Acquired hypothyroidism E03.9 and Leukocytosis, unspecified type D72.829 [address] [id number] December, Diabetes type 2, controlled E11.9 ; [...] ; Gastroparesis K31.84 and Acquired hypothyroidism E03.9 [address] [id number] December, Diabetic polyneuropathy associated with type 2 diabetes mellitus E11.42 ; Anxiety F41.9 and Other chronic pain G89.29 [facility] [place] [address] [id number] [address] December, Onychomycosis B35.1 and Contusion of left foot, initial encounter S90.32XA [address] [id number] [id number] Nov, Diabetic polyneuropathy associated with type 2 diabetes mellitus E11.42 ; Anxiety F41.9 and Other chronic pain G89.29 [address] [place] [address] [id number] Oct, Other chronic pain G89.29 ; Anxiety F41.9 and Diabetic polyneuropathy associated with type 2 diabetes mellitus E11.42 [address] [id number] Oct, Neutrophilia D72.9 [address] [id number] [id number] Sep, Neutrophilia D72.9 ; Lymphocytosis D72.820 and Leukocytosis, unspecified type D72.829 [address]100[place] [id number] Sep, Leukocytosis, unspecified type D72.829 ; Vaginal discharge N89.8 ; Cramp of toe R25.2 ; Sleep apnea in adult G47.30 ; Diabetic polyneuropathy associated with type 2 diabetes mellitus E11.42 ; Anxiety F41.9 ; Other chronic pain G89.29 ; Acquired hypothyroidism E03.9 ; Gastroparesis K31.84 ; PTSD (post- traumatic stress disorder) F43.10 ; Sinus congestion R09.81 and BMI 40.0-44.9, adult Z68.[address] [place] [address] [id number] Sep, Syncope, unspecified syncope type R55 ; [...] R09.89 and Swelling of lower extremity M79.89 [address] [place] [address] [id number] Aug, Carbuncle and furuncle of buttock L02.33 ; Radicular pain of lower extremity M54.10 ; Mixed stress and urge urinary incontinence N39.46 ; Nail ingrowing L60.0 and BMI 40.0-44.9, adult Z68.41 [facility] [place] [address]00565[address], [place] [address] Aug, [address] [place] [address] [id number] Aug, Diabetic polyneuropathy associated with type 2 diabetes mellitus E11.42 ; Anxiety F41.9 and Other chronic pain G89.29 [address] [place] [address] [id number] Jul, [facility] [place] [address] [place] [address]- [address] Jul, [address] [id number] Jul, Diabetic polyneuropathy associated with type 2 diabetes mellitus E11.42 ; Anxiety F41.9 and Other chronic pain G89.29 [address] [place] [address] [id number] Jul, BMI 40.0-44.9, adult Z68.41 ; Diabetes type 2, controlled E11.9 ; Sinus congestion R09.81 ; Sore throat J02.9 ; Gastroparesis K31.84 ; Mendez''s esophagus with dysplasia K22.719 ; Lumbago with sciatica, right side M54.41 and Other chronic pain G89.29 [facility] [place] [address] [place] [address] [id number] Jul, [address] [place] [address] [id number] Jun, Acute non-recurrent frontal sinusitis J01.10 ; Acute diffuse otitis externa of both ears H60.313 and BMI 40.0-44.9, adult Z68.41 [address] [place] [address] [id number] Jun, Diabetic polyneuropathy associated with type 2 diabetes mellitus E11.42 ; Other chronic pain G89.29 and Anxiety F41.9 [address] [place] [address] [id number] Jun, [address] [place] [address] [id number] Apr, Anxiety F41.9 ; Gastroparesis K31.84 ; Other chronic pain G89.29 ; PTSD ( post-traumatic stress disorder) F43.10 ; Acquired hypothyroidism E03.9 ; Diabetic polyneuropathy associated with type 2 diabetes mellitus E11.42 ; Chronic seasonal allergic rhinitis, unspecified trigger J30.2 ; Urge incontinence of urine N39.41 ; Acute diffuse otitis externa of right ear H60.311 and BMI 45.0-49.9, adult Z68.42 [facility] [address] [place] [address] [id number] 14 Apr, 2017 Chronic seasonal allergic rhinitis, unspecified trigger J30.2 and Encounter for immunization Z23 [facility] [id number] [place] [address] [id number] 11 Apr, 2017 Diabetic polyneuropathy associated with type 2 diabetes mellitus E11.42 ; Acute pain of right knee M25.561 and Post traumatic stress disorder (PTSD) F43.10 [facility] [place] [address]005[address], [place] [address]- [address] Mar, [address] [place] [address] [id number] Mar, Well woman exam with routine gynecological exam Z01.419 ; Stress incontinence N39.3 ; High risk sexual behavior Z72.51 ; Screening breast examination Z12.31 and Nausea R11.0 [id number] [place] [address] [id number] Mar, Other chronic pain G89.29 ; Bladder leak R32 ; Sore throat J02.9 ; Post traumatic stress disorder (PTSD) F43.10 and Acute pain of right knee M25.561 [address] [place] [address] [id number] Feb, [address] [place] [address] [id number] Feb, Acquired hypothyroidism E03.9 ; Diabetic polyneuropathy associated with type 2 diabetes mellitus E11.42 ; Other chronic pain G89.29 ; Diarrhea, unspecified type R19.7 ; GERD without esophagitis K21.9 ; Post traumatic stress disorder (PTSD) F43.10 ; Intentional self-harm by blunt object, subsequent encounter X79.XXXD and Acute pain of right knee M25.561 [id number] [id number] Feb, Acquired hypothyroidism E03.9 [facility] [address] [id number] [id number] Jan, Acquired hypothyroidism E03.9 ; Diabetic polyneuropathy associated with type 2 diabetes mellitus E11.42 ; Other chronic pain G89.29 ; Diarrhea, unspecified type R19.7 ; GERD without esophagitis K21.9 ; Post traumatic stress disorder (PTSD) F43.10 ; Intentional self-harm by blunt object, subsequent encounter X79.XXXD and Acute pain of right knee M25.561 [facility] [address] [place] [address] [id number] Jan, Acquired hypothyroidism E03.9 ; Diabetic polyneuropathy associated with type 2 diabetes mellitus E11.42 ; Other chronic pain G89.29 ; Diarrhea, unspecified type R19.7 ; GERD without esophagitis K21.9 ; Post traumatic stress disorder (PTSD) F43.10 and Intentional self-harm by blunt object, initial encounter X79.XXXA [facility] [address]00565100[place], [place] [id number] Jan, [address] [place] [address] [id number] December, PTSD (post-traumatic stress disorder) F43.10 ; Gastroparesis due to secondary diabetes E13.43 ; Chronic diarrhea K52.9 ; Non-seasonal allergic rhinitis due to pollen J30.1 and Constipation by delayed colonic transit K59.01 [facility] [place] [address] [facility] [id number] [address] December, [address] [id number] [id number] December, Diabetic polyneuropathy associated with type 2 diabetes mellitus E11.42 [address] [place] [address] [id number] December, Diabetes type 2, uncontrolled E11.65 ; GERD without esophagitis K21.9 and PTSD (post-traumatic stress disorder) F43.10 [address] [place] [address] [id number] Nov, Anxiety F41.9 [facility] [place] [id number], [place] [id number] Nov, Diabetic polyneuropathy associated with type 2 diabetes mellitus E11.42 [facility] [place] [id number], [place] [id number] Oct, Anxiety F41.9 [facility] [place] [id number], [place] [id number] Sep, Gastroparesis due to secondary diabetes E13.43 and Anxiety F41.9 [facility] [address]00565[address], [place] [address] Aug, [facility] [place] [id number] [place] [address] [id number] Aug, Chronic constipation K59.09 and Diarrhea, unspecified type R19.7 [facility] [place] [id number], [place] [id number] Aug, Diabetic polyneuropathy associated with type 2 diabetes mellitus E11.42 [facility] [place] [id number], [place] [id number] Aug, Gastroparesis K31.84 ; Diabetes type 2, uncontrolled E11.65 ; Gastric pain R10.9 ; Irritable bowel syndrome with both constipation and diarrhea K58.2 and Chronic constipation K59.00 [facility] [place] [id number], [place] [id number] Aug, Dark stools R19.5 [facility] [place] [id number], [place] [id number] Aug, Gastroparesis K31.84 and Chronic constipation K59.00 [facility] [place] [id number], [place] [id number] 09 Aug, 2016 Dark stools R19.5 ; Diabetes type 2, uncontrolled E11.65 ; Gastroparesis due to secondary diabetes E13.43 and Constipation by delayed colonic transit K59.01 [facility] [place] [id number], [place] [id number] Aug, Anxiety F41.9 [facility] [place] [id number], [place] [id number] Aug, Nausea R11.0 ; Left foot pain M79.672 ; Pain in right knee M25.561 ; Low back pain M54.5 and Other chronic pain G89.29 [facility] [place] [address]00565[address], [place] [address] Jul, [facility] [id number], [place] [id number] Jul, [id number] [place] [address]- [address] Jul, PTSD (post-traumatic stress disorder) F43.10 [facility] [address]65100[place], [place] [id number] Jul, Anxiety F41.9 [facility] [place] [address]00565[address], [place] [address]- [address] Jul, [address]005[address]100[place] [id number] Jul, PTSD (post-traumatic stress disorder) F43.10 [facility] [id number], [place] [id number] Jul, Diabetes type 2, uncontrolled E11.65 ; Left foot pain M79.672 ; Toe pain, right M79.674 ; Low back pain M54.5 ; Other chronic pain G89.29 ; Pain in right knee M25.561 ; PTSD (post-traumatic stress disorder) F43.10 and Anxiety F41.9 [facility] [id number], [place] [id number] Jul, [facility] [address] [id number], [place] [id number] Jun, PTSD (post-traumatic stress disorder) F43.10 [facility] [address]00565100[place], [place] [id number] Jun, [facility] [place] [address] [id number], [place] [address] Jun, [facility] [id number] [place] [address] [id number] Jun, PTSD (post-traumatic stress disorder) F43.10 [facility] [id number] [place] [address] [id number] Jun, [id number] [place] [address] [id number] Jun, Cellulitis of right lower extremity L03.115 ; Other chronic pain G89.29 ; Pain in right knee M25.561 ; Pain in left knee M25.562 and Anxiety about health F41.8 [facility] [id number] [place] [address] [id number] May, Anxiety F41.[address] [id number] May, PTSD (post-traumatic stress disorder) F43.10 [id number] [place] [address] [id number] May, Diabetes type 2, uncontrolled E11.65 ; Diabetic polyneuropathy associated with type 2 diabetes mellitus E11.42 ; Gastroparesis due to secondary diabetes E13.43 ; Anxiety F41.9 ; Other chronic pain G89.29 ; Pain in right knee M25.561 ; Pain in left knee M25.562 ; Acquired hypothyroidism E03.9 and Chronic constipation K59.00 [facility] [place] [address] [id number]- 6775 May, [id number] [place] [address] [id number] May, [id number] [place] [address] [id number] Apr, [id number] [place] [address] [id number] Apr, [facility] [place] [address] [address]- [address] Apr, [facility] [id number] [place] [address] [id number] Apr, [facility] [place] [address] [address]- 7[address] Apr, [facility] [place] [address] [id number] [place] [id number] Apr, Diabetes type 2, uncontrolled E11.65 ; Diabetic polyneuropathy associated with type 2 diabetes mellitus E11.42 ; Gastroparesis due to secondary diabetes E13.43 and Encounter for immunization Z23 [facility] [place] [address] [id number] [place] [id number] Apr, Gastroparesis K31.84 and Diabetes type 2, controlled E11.9 [facility] [place] [address] [id number] [place] [id number] Mar, Diabetes type 2, controlled E11.9 ; Chronic constipation K59.00 and Gastroparesis K31.84 [facility] [place] [address] [id number] [place] [id number] Mar, [facility] [place] [address] [id number] [place] [id number] Mar, Diabetes type 2, controlled E11.9 [facility] [place] [address] [id number] [place] [id number] Mar, [facility] [place] [address] [id number] [place] [id number] Feb, [facility] [place] [address] [id number] [place] [id number] Feb, [facility] [place] [address] [id number] [place] [id number] Feb, Diabetes type 2, controlled E11.9 [facility] [place] [address] [id number] [place] [id number] Feb, [facility] [place] [address] [id number] [place] [id number] Jan, [facility] [place] [address] [id number] [place] [id number] Jan, [facility] [place] [address] [id number] [place] [id number] Jan, Diabetes type 2, controlled E11.9 [facility] [place] [address] [id number] [place] [id number] December, [facility] [place] [id number] [place] [address] [id number] December, Diabetes type 2, uncontrolled E11.65 and Diabetes type 2, controlled E11.9 [id number] [place] [address] [id number] December, [facility] [address] [id number] Nov, Wound of toenail, subsequent encounter S91.209D and Plantar fascia syndrome M72.[address] [id number] Nov, Ingrown toenail L60.0 [facility] [address] [id number] Nov, Wound of toenail, subsequent encounter S91.209D [address] [id number] Nov, Tinea unguium B35.1 and Ingrowing nail L60.[address] [id number] Nov, Ingrown toenail L60.[address] [id number] Nov, Cellulitis of right lower extremity L03.[address] [id number] Nov, Ingrown toenail L60.0 and Diabetes type 2, controlled E11.9 [id number] [place] [address] [id number] Oct, [address] [id number] Oct, Anxiety F41.[address] [id number] Sep, [address] [id number] Sep, Elevated white blood cell count D72.829 and Multiple joint pain M25.[address] [id number] Sep, Diabetes type 2, uncontrolled E11.65 ; Onychomycosis B35.1 ; Skin candidiasis B37.2 and Anxiety F41.9 [facility] [place] [id number] [place] [address] [id number] Aug, [facility] [place] [id number] [place] [address] [id number] Aug, [facility] [place] [address] [place] [address] [id number] Jul, Diabetes type 2, uncontrolled E11.65 [facility] [place] [id number] [place] [address] [id number] Jul, [facility] [place] [id number] [place] [address] [id number] Jul, Diabetes type 2, uncontrolled E11.65 [facility] [place] [id number] [place] [address] [id number] Jul, [facility] [address] [place] [address] [id number] Jun, [facility] [address]00565100[place], [place] [address]- 3[address] Jun, [facility] [address] [place] [address] [id number] Jun, Diabetes type 2, uncontrolled E11.65 ; Chronic constipation K59.00 and Anxiety F41.9 [facility] [address] [id number] [id number] Jun, Plantar fascia syndrome M72.2 [facility] [address]100[place], [place] [id number] May, [facility] [place] [id number] [place] [address] [id number] May, [facility] [address] [place] [address] [id number] May, Encounter for immunization Z23 ; Diabetes type 2, uncontrolled E11.65 and Depression with anxiety F41.8 [facility] [address] [place] [address] [id number] Apr, Chronic constipation 564.00 ; Insomnia, unspecified 780.52 ; Diabetes mellitus, type 2 250.00 ; PTSD (post-traumatic stress disorder) 309.81 and Anxiety and depression 300.00 [facility] [place] [id number][place] [id number] Apr, [facility] [id number] [place] [address] [id number] Apr, Anxiety and depression 300.00 and PTSD (post-traumatic stress disorder) 309.81 [facility] [id number] [place] [address] [id number] Mar, [id number] [place] [address] [id number] Mar, Follow up V67.9 ; Social anxiety disorder 300.23 and Acid reflux 530.81 [facility] [id number] [place] [address] [id number] Feb, [id number] [place] [address] [id number] Feb, [facility] [id number] [place] [address] [id number] Feb, [id number] [place] [address] [id number] Feb, [facility] [place] [address] [address]- [address] Feb, [id number] [place] [address] [id number] Feb, Unspecified hereditary and idiopathic peripheral neuropathy 356.9 ; Heartburn 787.1 ; Uncontrolled type 2 diabetes with neuropathy 250.62 ; Otitis externa 380.10 and HEP B (ADULT) DX V05.3 [address] [id number] [place] [address] [id number] Jan, [address] [id number] December, [facility] [place] [address] [id number] Nov, [facility] [place] [address] [id number]- 7315 Nov, [facility] [place] [facility] [address] [id number] [place] [address]- 4776 Oct, [facility] [place] [facility] [address] [id number] [place] [address]- 2546 Oct, [facility] [place] [address] [facility] [id number][place] [id number] Oct, [facility] [place] [facility] [address] [facility] [id number], [place] [address] 2546 Oct, [facility] [place] [facility] [address] [facility] [id number] [place] [address]- 1610 Oct, [facility] [place] [facility] [address] [facility] [id number] [place] [address]- 8876 Oct, [facility] [place] [address] [facility] [id number], [place] [id number] Oct, [facility] [place] [facility] [address] [facility] [id number], [place] [address]- 1596 Oct, [facility] [place] [address] [facility] [id number], [place] [id number] Oct, [facility] [place] [facility] [address] [facility] [id number], [place] [address]- 4956 Oct, [facility] [place] [address] [id number], [place] [id number] Oct, [facility] [place] [address] [id number], [place] [id number] Oct, [facility] [place] [facility] [address] [facility] [id number], [place] [address] Oct, [facility] [address] [facility] [id number], [place] [address] Oct, [facility] [address] [facility] [id number][place] [id number] Oct, [facility] [address] [facility] [id number], [place] [address] Oct, [facility] [address] [facility] [id number], [place] [address] Sep, [facility] [address] [facility] [id number], [place] [address] Sep, [facility] [address] [facility] [id number][place] [id number] Sep, [facility] [address] [facility] [id number], [place] [address] Sep, [facility] [address] [facility] [id number], [place] [address] Sep, [facility] [address] [facility] [id number], [place] [address] Sep, [facility] [address] [id number], [place] [address] Aug, [facility] [address] [id number][place] [id number] Aug, [facility] [place] [facility] [address] [facility] [id number], [place] [address] Aug, [facility] [place] [facility] [address] [facility] [id number], [place] [address] Aug, [facility] [place] [id number][place] [id number] Aug, [facility] [place] [facility] [address] [facility] [id number], [place] [address] Aug, [facility] [place] [facility] [address] [facility] [id number], [place] [address] Aug, [facility] [place] [facility] [address] [facility] [id number], [place] [address] Aug, [facility] [place] [address] [facility] [id number][place] [id number] Aug, [facility] [place] [address] [facility] [id number][place] [id number] Aug, [facility] [place] [facility] [address] [facility] [id number], [place] [address] Aug, [facility] [place] [facility] [address] [id number], [place] [address] Aug, [facility] [place] [address] [id number][place] [id number] Jul, [facility] [place] [facility] [address] [facility] [id number], [place] [address] Jul, [facility] [address] [id number][place] [address] Jun, [facility] [place] [facility] [address] [facility] [id number] [place] [address] Jun, [facility] [address] [id number] [place] [id number] Jun, [facility] [place] [facility] [address] [facility] [id number], [place] [address] Jun, [facility] [place] [address] [id number], [place] [id number] Jun, [facility] [place] [facility] [address] [facility] [id number], [place] [address] Jun, [facility] [place] [facility] [address] [facility] [id number], [place] [address] May, [facility] [place] [facility] [address] [facility] [id number], [place] [address] May, [facility] [address] [id number], [place] [id number] May, [facility] [place] [facility] [address] [facility] [id number], [place] [address] May, [facility] [address] [id number][place] [id number] Apr, [facility] [place] [facility] [address] [id number] [place] [address] Apr, [facility] [address] [id number] [place] [id number] Apr, [facility] [address] [id number] [place] [id number] Apr, [facility] [place] [facility] [address] [id number] [place] [address]79 Apr, [facility] [place] [facility] [address] [facility] [id number] [place] [address]- [address]36 Apr, [facility] [address] [facility] [id number] [place] [id number] Apr, [facility] [place] [facility] [address] [facility] [id number] [place] [address] Apr, [facility] [address] [facility] [id number] [place] [id number] Apr, [facility] [place] [facility] [address] [facility] [id number] [place] [address]- [address] Apr, [facility] [address] [facility] [id number] [place] [id number] Feb, [facility] [place] [facility] [address] [facility] [id number], [place] [address] Feb, [facility] [address] [facility] [id number] [place] [id number] Feb, [facility] [place] [facility] [address] [facility] [id number], [place] [address] Feb, [facility] [place] [facility] [address] [facility] [id number], [place] [address] Jan, [facility] [place] [facility] [address] [facility] [id number], [place] [address] Jan, [facility] [place] [facility] [address] [facility] [id number] [place] [address]- [address] Jan, [facility] [address] [facility] [id number] [place] [id number] Jan, [facility] [place] [facility] [address] [facility] [id number] [place] [address]- [address] Jan, [facility] [place] [facility] [address] [facility] [id number], [place] [address] Jan, [facility] [address] [id number] [place] [address] Jan, [facility] [place] [facility] [address] [id number] [place] [address] 2546 Jan, [facility] [address] [id number] [place] [id number] December, [facility] [place] [facility] [address] [id number] [place] [address] December, [facility] [address] [id number] [place] [id number] December, [facility] [address] [id number] [place] [id number] December, [facility] [address] [id number] [place] [id number] December, [facility] [place] [facility] [address] [facility] [id number], [place] [address]- [address] December, [facility] [place] [facility] [address] [facility] [id number] [place] [address]- 1566 December, [facility] [place] [facility] [address] [facility] [id number], [place] [address]- 56[address] December, [facility] [address] [facility] [id number], [place] [address] Nov, [facility] [place] [facility] [address] [facility] [id number], [place] [address]- 2546 Nov, [facility] [address] [facility] [id number], [place] [id number] Oct, [facility] [place] [facility] [address] [facility] [id number] [place] [address]- 2546 Oct, [facility] [place] [facility] [address] [facility] [id number] [place] [address]- 1046 Sep, [facility] [place] [facility] [address] [facility] [id number], [place] [address]- [address]6 Sep, [facility] [address] [facility] [id number], [place] [id number] Aug, [facility] [address] [id number] [place] [id number] Aug, [facility] [address] [facility] [id number] [place] [address]- 7819 Aug, [facility] [address] [facility] [id number], [place] [address]4550254- [address]22 Aug, [facility] [address] [id number] [place] [id number] Jul, [facility] [address] [facility] [id number] [place] [address] Jul, [facility] [address] [id number] [place] [id number] Jul, [facility] [address] [facility] [id number], [place] 536[address]89- [address] Jul, [facility] [address] [id number], [place] [id number] Jun, [facility] [address] [facility] [id number], [place] 30546024- 1077 Jun, [facility] [address] [id number] [place] [address] Apr, [facility] [address] [id number] [place] [address]65[address] Mar, [facility] [address] [id number] [place] [id number] Mar, [facility] [address] [id number] [place] [id number] Mar, [facility] [address] [id number] [place] [id number] Mar, [facility] [address] [id number] [place] [id number] Feb, [facility] [address] [id number] [place] [id number] Jan, [facility] [address] [id number] [place] [id number] Jan, [facility] [address] [id number] [place] [address] Jan, [facility] [address] [id number] [place] [address] Jan, [facility] [address] [id number] [place] [id number] December, [facility] [address] [id number] [place] [id number] December, [facility] [address] [id number] [place] [id number] December, [facility] [place] [facility] [address] [id number] [place] [address]- 0908 Jul, [facility] [address] [id number] [place] [id number] Jul, [facility] [address] [id number] [place] [address] Jul, [facility] [address] [id number] [place] 8992925[address] Jul, [facility] [address] [id number] [place] 12[address] Jul, [facility] [place] [facility] [id number], [place] [address]- [address] Jul, [facility] [place] [facility] [address] [facility] [id number], [place] 59526507- 3156 Jul, [facility] [place] [facility] [address] [facility] [id number], [place] 70515151- 0728 Jul, [facility] [address] [id number] [place] [id number] Jun, [facility] [place] [facility] [address] [facility] [id number], [place]9942- 1819 Jun, [facility] [place] [facility] [address] [facility] [id number], [place] 902703- 9605 Jul, [facility] [place] [facility] [address], [place]- 3529 Jul, [facility] [place] [facility] [address] [facility] [id number] [place] [address]- 2396 08 Jul, 2010 [facility] [address] [id number] [place] [address]- 3739 08 Jul, 2010 [facility] [place] [facility] [address] [id number] [place] [address]- 5466 Jun, [facility] [address] [id number] [place] [address]- 2606 Jun, [facility] [place] [facility] [address] [id number] [place] [address] 2549 Jun, [facility] [address] [id number] [place] [address]- 3535 Jun, [facility] [address] [id number] [place] [address]- 2668 Jun, [facility] [address] [facility] [id number] [place] [address]- 4487 May, [facility] [address] [id number] [place] [address]- 8236 May, [facility] [address] [facility] [id number] [place] [address]- 0347 May, [facility] [address] [facility] [id number] [place] [address]- 2039 May, [facility] [place] [facility] [address] [id number] [place] [address]- 2544 16 Nov, 2009 [facility] [address] [id number] [place] [address]- 0114 Jul, [facility] [place] [facility] [address] [id number] [place] [address] 2540 Jun, [facility] [place] [facility] [address] [facility] [id number] [place] [address]- 2547 Jun, [facility] [place] [facility] [address] [id number] [place] [address]- 8861 29 May, 2009 [facility] [address] [id number], [place] [address]- [address] May, [facility] [address] [id number], [place] [address]- 7966 May, [facility] [address] [id number], [place] [address]- 9284 May, [facility] [address]65100[place], [place] 9268 May, [facility] [address] [id number], [place] [address]- [address]265 May, [facility] [place] [address] [id number], [place] [address]- 6942 Apr, [facility] [address] [id number], [place] [address]- [address] Jan, IMMUNIZATIONS No Known Immunizations SOCIAL HISTORY Never Assessed REASON FOR VISIT Waiting for call back PLAN OF CARE VITAL SIGNS MEDICATIONS Unknown [...]
--- OUTSIDE RECORDS SUMMARY | 2018-02-13 11:01 | XMS REPORT ---
Author Author DYLLAN GAMING [facility] Address [address] [place] [address] Care Team Providers Care Freight Unloader Name Role Phone DYLLAN GAMING Unavailable PROBLEMS Type Condition ICD9-CM Code MEQ03-PU Code Onset Dates Condition Status SNOMED Code Problem Gastric pain R10.9 Active 873658347 Problem GERD without esophagitis K21.9 Active 722896306 Problem Gastroparesis K31.84 Active 305852217 Problem Leukocytosis, unspecified type D72.829 Active 500054045 Problem Chronic constipation K59.00 Active 159840957 Problem Mixed hyperlipidemia E78.2 Active 820326589 Problem Mixed stress and urge urinary incontinence N39.46 Active 274165212 Problem Mendez''s esophagus with dysplasia K22.719 Active 571250910 Problem Sleep apnea in adult G47.30 Active 97655177 Problem Current moderate episode of major depressive disorder without prior episode F32.1 Active 52877042 Problem Diabetic polyneuropathy associated with type 2 diabetes mellitus E11.42 Active 13256008 Problem Other chronic pain G89.29 Active 79909921 Problem Anxiety F41.9 Active 09516413 Problem Diabetes type 2, controlled E11.9 Active 63725849 Problem Anxiety about health F41.8 Active 980461535 Problem Low back pain M54.5 Active 035096097 Problem Acquired hypothyroidism E03.9 Active 132110264 Problem Left foot pain M79.672 Active 32008832 Problem PTSD (post-traumatic stress disorder) F43.10 Active 04766313 Problem Irritable bowel syndrome with both constipation and diarrhea K58.2 Active 77433450 ALLERGIES No Information ENCOUNTERS Encounter Location Date Diagnosis [facility] [address] [facility] [id number] [place] [id number] Mar, [facility] [id number] [place] [address] [id number] Jan, BMI 40.0-44.9, adult Z68.41 ; Right foot pain M79.671 ; Irritable bowel syndrome with both constipation and diarrhea K58.2 ; Diabetic polyneuropathy associated with type 2 diabetes mellitus E11.42 ; Other chronic pain G89.29 ; Acquired hypothyroidism E03.9 and Leukocytosis, unspecified type D72.829 [address] [id number] December, Diabetes type 2, controlled E11.9 ; [...] ; Gastroparesis K31.84 and Acquired hypothyroidism E03.9 [address] [id number] December, Diabetic polyneuropathy associated with type 2 diabetes mellitus E11.42 ; Anxiety F41.9 and Other chronic pain G89.29 [facility] [address] [place] [id number] [address] December, Onychomycosis B35.1 and Contusion of left foot, initial encounter S90.32[address] [place] [id number] [id number] Nov, Diabetic polyneuropathy associated with type 2 diabetes mellitus E11.42 ; Anxiety F41.9 and Other chronic pain G89.29 [address] [place] [address] [id number] Oct, Other chronic pain G89.29 ; Anxiety F41.9 and Diabetic polyneuropathy associated with type 2 diabetes mellitus E11.42 [address] [id number] Oct, Neutrophilia D72.9 [address] [id number] [id number] Sep, Neutrophilia D72.9 ; Lymphocytosis D72.820 and Leukocytosis, unspecified type D72.829 [address] [id number] Sep, Leukocytosis, unspecified type D72.829 ; Vaginal discharge N89.8 ; Cramp of toe R25.2 ; Sleep apnea in adult G47.30 ; Diabetic polyneuropathy associated with type 2 diabetes mellitus E11.42 ; Anxiety F41.9 ; Other chronic pain G89.29 ; Acquired hypothyroidism E03.9 ; Gastroparesis K31.84 ; PTSD (post- traumatic stress disorder) F43.10 ; Sinus congestion R09.81 and BMI 40.0-44.9, adult Z68.41 [address] [place] [address] [id number] Sep, Syncope, unspecified syncope type R55 ; [...] R09.89 and Swelling of lower extremity M79.89 [address] [place] [address] [id number] Aug, Carbuncle and furuncle of buttock L02.33 ; Radicular pain of lower extremity M54.10 ; Mixed stress and urge urinary incontinence N39.46 ; Nail ingrowing L60.0 and BMI 40.0-44.9, adult Z68.41 [facility] [address], [place] [address] Aug, [address] [place] [address] [id number] Aug, Diabetic polyneuropathy associated with type 2 diabetes mellitus E11.42 ; Anxiety F41.9 and Other chronic pain G89.29 [address] [place] [address] [id number] Jul, [facility] [address] [place] [address] Jul, [address] [id number] Jul, Diabetic polyneuropathy associated with type 2 diabetes mellitus E11.42 ; Anxiety F41.9 and Other chronic pain G89.29 [address] [place] [address] [id number] Jul, BMI 40.0-44.9, adult Z68.41 ; Diabetes type 2, controlled E11.9 ; Sinus congestion R09.81 ; Sore throat J02.9 ; Gastroparesis K31.84 ; Mnedez''s esophagus with dysplasia K22.719 ; Lumbago with sciatica, right side M54.41 and Other chronic pain G89.29 [facility] [address] [place] [address] 2546 Jul, [address] [place] [address] [id number] Jun, Acute non-recurrent frontal sinusitis J01.10 ; Acute diffuse otitis externa of both ears H60.313 and BMI 40.0-44.9, adult Z68.41 [address] [place] [address] [id number] Jun, Diabetic polyneuropathy associated with type 2 diabetes mellitus E11.42 ; Other chronic pain G89.29 and Anxiety F41.9 [address] [place] [address] [id number] Jun, [address] [place] [address] [id number] Apr, Anxiety F41.9 ; Gastroparesis K31.84 ; Other chronic pain G89.29 ; PTSD ( post-traumatic stress disorder) F43.10 ; Acquired hypothyroidism E03.9 ; Diabetic polyneuropathy associated with type 2 diabetes mellitus E11.42 ; Chronic seasonal allergic rhinitis, unspecified trigger J30.2 ; Urge incontinence of urine N39.41 ; Acute diffuse otitis externa of right ear H60.311 and BMI 45.0-49.9, adult Z68.42 [facility] [address] [place] [address] [id number] 14 Apr, 2017 Chronic seasonal allergic rhinitis, unspecified trigger J30.2 and Encounter for immunization Z23 [facility] [id number] [place] [address] [id number] 11 Apr, 2017 Diabetic polyneuropathy associated with type 2 diabetes mellitus E11.42 ; Acute pain of right knee M25.561 and Post traumatic stress disorder (PTSD) F43.10 [facility] [address] [address] Mar, [address] [place] [address] [id number] Mar, Well woman exam with routine gynecological exam Z01.419 ; Stress incontinence N39.3 ; High risk sexual behavior Z72.51 ; Screening breast examination Z12.31 and Nausea R11.0 [address] [address] [id number] [place] [address] [id number] Mar, Other chronic pain G89.29 ; Bladder leak R32 ; Sore throat J02.9 ; Post traumatic stress disorder (PTSD) F43.10 and Acute pain of right knee M25.561 [address] [place] [address] [id number] Feb, [address] [place] [address] [id number] Feb, Acquired hypothyroidism E03.9 ; Diabetic polyneuropathy associated with type 2 diabetes mellitus E11.42 ; Other chronic pain G89.29 ; Diarrhea, unspecified type R19.7 ; GERD without esophagitis K21.9 ; Post traumatic stress disorder (PTSD) F43.10 ; Intentional self-harm by blunt object, subsequent encounter X79.XXXD and Acute pain of right knee M25.561 [id number] [id number] Feb, Acquired hypothyroidism E03.9 [facility] [address] [id number] [id number] Jan, Acquired hypothyroidism E03.9 ; Diabetic polyneuropathy associated with type 2 diabetes mellitus E11.42 ; Other chronic pain G89.29 ; Diarrhea, unspecified type R19.7 ; GERD without esophagitis K21.9 ; Post traumatic stress disorder (PTSD) F43.10 ; Intentional self-harm by blunt object, subsequent encounter X79.XXXD and Acute pain of right knee M25.561 [facility] [address] [place] [address] [id number] Jan, Acquired hypothyroidism E03.9 ; Diabetic polyneuropathy associated with type 2 diabetes mellitus E11.42 ; Other chronic pain G89.29 ; Diarrhea, unspecified type R19.7 ; GERD without esophagitis K21.9 ; Post traumatic stress disorder (PTSD) F43.10 and Intentional self-harm by blunt object, initial encounter X79.XXXA [facility] [address]005[address] [id number] Jan, [address] [place] [address] [id number] December, PTSD (post-traumatic stress disorder) F43.10 ; Gastroparesis due to secondary diabetes E13.43 ; Chronic diarrhea K52.9 ; Non-seasonal allergic rhinitis due to pollen J30.1 and Constipation by delayed colonic transit K59.01 [facility] [address] [facility] [id number] [address] December, [address] [id number] [id number] December, Diabetic polyneuropathy associated with type 2 diabetes mellitus E11.42 [address] [place] [address] [id number] December, Diabetes type 2, uncontrolled E11.65 ; GERD without esophagitis K21.9 and PTSD (post-traumatic stress disorder) F43.10 [address] [place] [address] [id number] Nov, Anxiety F41.9 [facility] [place] [id number] [id number] Nov, Diabetic polyneuropathy associated with type 2 diabetes mellitus E11.42 [facility] [place] [id number], [place] [id number] Oct, Anxiety F41.9 [facility] [id number], [place] [id number] Sep, Gastroparesis due to secondary diabetes E13.43 and Anxiety F41.9 [facility] [address] [address] Aug, [facility] [place] [id number] [place] [address] [id number] Aug, Chronic constipation K59.09 and Diarrhea, unspecified type R19.7 [facility] [id number], [place] [id number] Aug, Diabetic polyneuropathy associated with type 2 diabetes mellitus E11.42 [facility] [id number], [place] [id number] Aug, Gastroparesis K31.84 ; Diabetes type 2, uncontrolled E11.65 ; Gastric pain R10.9 ; Irritable bowel syndrome with both constipation and diarrhea K58.2 and Chronic constipation K59.00 [facility] [place] [id number], [place] [id number] Aug, Dark stools R19.5 [facility] [place] [id number], [place] [id number] Aug, Gastroparesis K31.84 and Chronic constipation K59.00 [facility] [id number], [place] [id number] 09 Aug, 2016 Dark stools R19.5 ; Diabetes type 2, uncontrolled E11.65 ; Gastroparesis due to secondary diabetes E13.43 and Constipation by delayed colonic transit K59.01 [facility] [place] [id number], [place] [id number] Aug, Anxiety F41.9 [facility] [id number], [place] [id number] Aug, Nausea R11.0 ; Left foot pain M79.672 ; Pain in right knee M25.561 ; Low back pain M54.5 and Other chronic pain G89.29 [facility] [address], [place] [address] Jul, [facility] [id number], [place] [id number] Jul, [id number] [place] [address]- [address] Jul, PTSD (post-traumatic stress disorder) F43.10 [facility] [address], [place] [id number] Jul, Anxiety F41.9 [facility] [address], [place] [address] Jul, [address] [id number] Jul, PTSD (post-traumatic stress disorder) F43.10 [facility] [id number], [place] [id number] Jul, Diabetes type 2, uncontrolled E11.65 ; Left foot pain M79.672 ; Toe pain, right M79.674 ; Low back pain M54.5 ; Other chronic pain G89.29 ; Pain in right knee M25.561 ; PTSD (post-traumatic stress disorder) F43.10 and Anxiety F41.9 [facility] [id number], [place] [id number] Jul, [facility] [address] [id number] [id number] Jun, PTSD (post-traumatic stress disorder) F43.10 [facility] [address], [place] [id number] Jun, [facility] [address] [id number], [place] [address] Jun, [facility] [id number] [place] [address] [id number] Jun, PTSD (post-traumatic stress disorder) F43.10 [facility] [id number] [place] [address] [id number] Jun, [id number] [place] [address] [id number] Jun, Cellulitis of right lower extremity L03.115 ; Other chronic pain G89.29 ; Pain in right knee M25.561 ; Pain in left knee M25.562 and Anxiety about health F41.8 [facility] [id number] [place] [address] [id number] May, Anxiety F41.[address] [id number] May, PTSD (post-traumatic stress disorder) F43.10 [id number] [place] [address] [id number] May, Diabetes type 2, uncontrolled E11.65 ; Diabetic polyneuropathy associated with type 2 diabetes mellitus E11.42 ; Gastroparesis due to secondary diabetes E13.43 ; Anxiety F41.9 ; Other chronic pain G89.29 ; Pain in right knee M25.561 ; Pain in left knee M25.562 ; Acquired hypothyroidism E03.9 and Chronic constipation K59.00 [facility] [address] [id number]- [address] May, [id number] [place] [address] [id number] May, [id number] [place] [address] [id number] Apr, [id number] [place] [address] [id number] Apr, [facility] [address] [address]- [address] Apr, [facility] [id number] [place] [address] [id number] Apr, [facility] [address] [address]- [address] Apr, [facility] [place] [address] [id number] [place] [id number] Apr, Diabetes type 2, uncontrolled E11.65 ; Diabetic polyneuropathy associated with type 2 diabetes mellitus E11.42 ; Gastroparesis due to secondary diabetes E13.43 and Encounter for immunization Z23 [facility] [place] [address] [id number] [place] [id number] Apr, Gastroparesis K31.84 and Diabetes type 2, controlled E11.9 [facility] [place] [address] [id number] [place] [id number] Mar, Diabetes type 2, controlled E11.9 ; Chronic constipation K59.00 and Gastroparesis K31.84 [facility] [place] [address] [id number] [place] [id number] Mar, [facility] [place] [address] [id number] [place] [id number] Mar, Diabetes type 2, controlled E11.9 [facility] [place] [address] [id number] [place] [id number] Mar, [facility] [place] [address] [id number] [place] [id number] Feb, [facility] [place] [address] [id number] [place] [id number] Feb, [facility] [place] [address] [id number] [place] [id number] Feb, Diabetes type 2, controlled E11.9 [facility] [place] [address] [id number] [place] [id number] Feb, [facility] [place] [address] [id number] [place] [id number] Jan, [facility] [place] [address] [id number] [place] [id number] Jan, [facility] [place] [address] [id number] [place] [id number] Jan, Diabetes type 2, controlled E11.9 [facility] [place] [address] [id number] [place] [id number] December, [facility] [place] [id number] [place] [address] [id number] December, Diabetes type 2, uncontrolled E11.65 and Diabetes type 2, controlled E11.9 [address] [id number] [place] [address] [id number] December, [facility] [address] [id number] Nov, Wound of toenail, subsequent encounter S91.209D and Plantar fascia syndrome M72.[address] [id number] Nov, Ingrown toenail L60.0 [facility] [address] [id number] Nov, Wound of toenail, subsequent encounter S91.209D [address] [id number] Nov, Tinea unguium B35.1 and Ingrowing nail L60.[address] [id number] Nov, Ingrown toenail L60.[address] [id number] Nov, Cellulitis of right lower extremity L03.[address] [id number] Nov, Ingrown toenail L60.0 and Diabetes type 2, controlled E11.9 [address] [id number] [place] [address] [id number] Oct, [address] [id number] Oct, Anxiety F41.[address] [id number] Sep, [address] [id number] Sep, Elevated white blood cell count D72.829 and Multiple joint pain M25.[address] [id number] Sep, Diabetes type 2, uncontrolled E11.65 ; Onychomycosis B35.1 ; Skin candidiasis B37.2 and Anxiety F41.9 [facility] [place] [id number] [place] [address] [id number] Aug, [facility] [place] [id number] [place] [address] [id number] Aug, [facility] [address] [place] [address] [id number] Jul, Diabetes type 2, uncontrolled E11.65 [facility] [place] [id number] [place] [address] [id number] Jul, [facility] [id number] [place] [address] [id number] Jul, Diabetes type 2, uncontrolled E11.65 [facility] [id number] [place] [address] [id number] Jul, [facility] [address] [place] [address] [id number] Jun, [facility] [address]00565100[place], [place] [address]- [address] Jun, [facility] [address] [place] [address] [id number] Jun, Diabetes type 2, uncontrolled E11.65 ; Chronic constipation K59.00 and Anxiety F41.9 [facility] [address] [id number] [id number] Jun, Plantar fascia syndrome M72.2 [facility] [address], [place] [id number] May, [facility] [place] [id number] [place] [address] [id number] May, [facility] [address] [place] [address] [id number] May, Encounter for immunization Z23 ; Diabetes type 2, uncontrolled E11.65 and Depression with anxiety F41.8 [facility] [address] [place] [address] [id number] Apr, Chronic constipation 564.00 ; Insomnia, unspecified 780.52 ; Diabetes mellitus, type 2 250.00 ; PTSD (post-traumatic stress disorder) 309.81 and [facility]xiety and depression [facility].00 [facility] [id number] [id number] Apr, [facility] [id number] [place] [address] [id number] Apr, Anxiety and depression 300.00 and PTSD (post-traumatic stress disorder) 309.81 [facility] [id number] [place] [address] [id number] Mar, [id number] [place] [address] [id number] Mar, Follow up V67.9 ; Social anxiety disorder 300.23 and Acid reflux 530.81 [facility] [id number] [place] [address] [id number] Feb, [id number] [place] [address] [id number] Feb, [facility] [id number] [place] [address] [id number] Feb, [id number] [place] [address] [id number] Feb, [facility] [address] [address]- [address] Feb, [address] [id number] [place] [address] [id number] Feb, Unspecified hereditary and idiopathic peripheral neuropathy 356.9 ; Heartburn 787.1 ; Uncontrolled type 2 diabetes with neuropathy 250.62 ; Otitis externa 380.10 and HEP B (ADULT) DX V05.3 [place] [id number] [place] [address] [id number] Jan, [address] [id number] December, [facility] [address] [id number]- 9662 Nov, [facility] [address] [id number]- 1578 Nov, [facility] [place] [facility] [address] [id number] [place] [address]- 2[address] Oct, [facility] [place] [facility] [address] [id number] [place] [address]- 2546 Oct, [facility] [place] [address] [facility] [id number], [place] [id number] Oct, [facility] [place] [facility] [address] [facility] [id number], [place] [address] 2546 Oct, [facility] [place] [facility] [address] [facility] [id number] [place] [address]- 8479 Oct, [facility] [place] [facility] [address] [facility] [id number] [place] [address]- 0626 Oct, [facility] [place] [address] [facility] [id number], [place] [id number] Oct, [facility] [place] [facility] [address] [facility] [id number], [place] [address]- 4816 Oct, [facility] [place] [address] [facility] [id number], [place] [id number] Oct, [facility] [place] [facility] [address] [facility] [id number], [place] [address]- 1366 Oct, [facility] [place] [address] [id number], [place] [id number] Oct, [facility] [place] [address] [id number], [place] [id number] Oct, [facility] [place] [facility] [address] [facility] [id number], [place] [address]- 2546 Oct, [facility] [place] [facility] [address] [facility] [id number], [place] [address]- 2546 Oct, [facility] [place] [address] [facility] [id number], [place] [id number] Oct, [facility] [place] [facility] [address] [facility] [id number], [place] [address]- 2546 Oct, [facility] [place] [facility] [address] [facility] [id number], [place] [address]- 4142 Sep, [facility] [place] [facility] [address] [facility] [id number], [place] [address]- 9443 Sep, [facility] [place] [address] [facility] [id number][place] [id number] Sep, [facility] [address] [facility] [id number], [place] [address] Sep, [facility] [address] [facility] [id number], [place] [address] Sep, [facility] [address] [facility] [id number], [place] [address] Sep, [facility] [address] [id number], [place] [address] Aug, [facility] [id number][place] [id number] Aug, [facility] [address] [facility] [id number], [place] [address] Aug, [facility] [address] [facility] [id number], [place] [address] Aug, [facility] [id number][place] [id number] Aug, [facility] [address] [facility] [id number], [place] [address] Aug, [facility] [address] [facility] [id number], [place] [address] Aug, [facility] [address] [facility] [id number], [place] [address] Aug, [facility] [address] [facility] [id number][place] [id number] Aug, [facility] [address] [facility] [id number][place] [id number] Aug, [facility] [address] [facility] [id number], [place] [address] Aug, [facility] [address] [id number], [place] [address] Aug, [facility] [address] [id number][place] [id number] Jul, [facility] [address] [facility] [id number], [place] [address] Jul, [facility] [place] [address] [id number][place] [id number] Jun, [facility] [place] [facility] [address] [facility] [id number] [place] [address] Jun, [facility] [place] [address] [id number] [place] [address] Jun, [facility] [place] [facility] [address] [facility] [id number], [place] [address] Jun, [facility] [place] [address] [id number][place] [address] Jun, [facility] [place] [facility] [address] [facility] [id number], [place] [address] Jun, [facility] [place] [facility] [address] [facility] [id number], [place] [address] May, [facility] [place] [facility] [address] [facility] [id number], [place] [address] May, [facility] [place] [address] [id number][place] [id number] May, [facility] [place] [facility] [address] [facility] [id number], [place] [address] May, [facility] [address] [id number][place] [id number] Apr, [facility] [place] [facility] [address] [id number] [place] [address] Apr, [facility] [address] [id number] [place] [id number] Apr, [facility] [address] [id number] [place] [id number] Apr, [facility] [place] [facility] [address] [id number] [place] [address] Apr, [facility] [place] [facility] [address] [facility] [id number] [place] [address] Apr, [facility] [address] [facility] [id number] [place] [id number] Apr, [facility] [place] [facility] [address] [facility] [id number] [place] [address] Apr, [facility] [address] [facility] [id number] [place] [id number] Apr, [facility] [place] [facility] [address] [facility] [id number] [place] [address] Apr, [facility] [address] [facility] [id number] [place] [id number] Feb, [facility] [place] [facility] [address] [facility] [id number], [place] [address] Feb, [facility] [address] [facility] [id number] [place] [id number] Feb, [facility] [place] [facility] [address] [facility] [id number], [place] [address] Feb, [facility] [place] [facility] [address] [facility] [id number], [place] [address] Jan, [facility] [place] [facility] [address] [facility] [id number], [place] [address] Jan, [facility] [place] [facility] [address] [facility] [id number] [place] [address] Jan, [facility] [address] [facility] [id number] [place] [address] Jan, [facility] [place] [facility] [address] [facility] [id number] [place] [address] Jan, [facility] [place] [facility] [address] [facility] [id number], [place] [address] Jan, [facility] [address] [id number] [place] [id number] Jan, [facility] [place] [facility] [address] [id number] [place] [address] Jan, [facility] [address] [id number] [place] [id number] December, [facility] [place] [facility] [address] [id number] [place] [address] December, [facility] [address] [id number] [place] [id number] December, [facility] [address] [id number] [place] [address] December, [facility] [address] [id number] [place] [address] December, [facility] [place] [facility] [address] [facility] [id number], [place] [address] December, [facility] [place] [facility] [address] [facility] [id number] [place] [address] December, [facility] [place] [facility] [address] [facility] [id number], [place] [address] December, [facility] [address] [facility] [id number][place] [id number] Nov, [facility] [place] [facility] [address] [facility] [id number], [place] [address] Nov, [facility] [address] [facility] [id number][place] [address] Oct, [facility] [place] [facility] [address] [facility] [id number] [place] [address] Oct, [facility] [place] [facility] [address] [facility] [id number] [place] [address] Sep, [facility] [place] [facility] [address] [facility] [id number], [place] [address] Sep, [facility] [address] [facility] [id number][place] [address] Aug, [facility] [address] [id number] [place] [address] Aug, [facility] [address] [facility] [id number] [place] [address] Aug, [facility] [address] [id number][place] [address] Aug, [facility] [address] [id number] [place] [id number] Jul, [facility] [address] [facility] [id number] [place] [address] Jul, [facility] [address] [id number] [place] [address] Jul, [facility] [address] [facility] [id number], [place] 46798[address]- [address] Jul, [facility] [address] [id number][place] [address] Jun, [facility] [address] [facility] [id number], [place] [address]4979673- [address]89 Jun, [facility] [address] [id number] [place] [address] Apr, [facility] [address] [id number] [place] [id number] Mar, [facility] [address] [id number] [place] [id number] Mar, [facility] [address] [id number] [place] [address] Mar, [facility] [address] [id number] [place] [address] Mar, [facility] [address] [id number] [place] Feb, [facility] [address] [id number] [place] [address] Jan, [facility] [address] [id number] [place] [address] Jan, [facility] [place] [address] [id number] [place] [address] Jan, [facility] [place] [address] [id number] [place] [address] Jan, [facility] [address] [id number] [place] [address] December, [facility] [address] [id number] [place] [address] December, [facility] [address] [id number] [place] [address] December, [facility] [place] [facility] [address] [id number] [place] [address] Jul, [facility] [address] [id number] [place] [address] Jul, [facility] [address] [id number] [place] [address] Jul, [facility] [address] [id number] [place] [address] Jul, [facility] [address] [id number] [place] [address] Jul, [facility] [place] [facility] [id number], [place] [address] Jul, [facility] [place] [facility] [address] [facility] [id number], [place] 45048610- [address]006 Jul, [facility] [place] [facility] [address] [facility] [id number], [place] 68[address]2973- [address]307 Jul, [facility] [address] [id number] [place] [address] Jun, [facility] [place] [facility] [address] [facility] [id number][place]994[place]- 3[address] Jun, [facility] [place] [facility] [address] [facility] [id number], [place]27[place]- [address]702 Jul, [facility] [place] [facility] [id number] Jul, [facility] [place] [facility] [address] [facility] [id number] [place] [address]- [address] 08 Jul, 2010 [facility] [address] [id number] [place] [address]- 130[address] 08 Jul, 2010 [facility] [place] [facility] [address] [id number] [place] [address]- 9923 Jun, [facility] [address] [id number] [place] [address]- 7686 Jun, [facility] [place] [facility] [address] [id number] [place] [address] 2548 Jun, [facility] [address] [id number] [place] [address]- 3070 Jun, [facility] [address] [id number] [place] [address]- 1050 Jun, [facility] [address] [facility] [id number] [place] [address]- [address]40 May, [facility] [address] [id number] [place] [address]- 7019 May, [facility] [address] [facility] [id number] [place] [address]- 2875 May, [facility] [address] [facility] [id number] [place] [address]- 4014 May, [facility] [place] [facility] [address] [id number] [place] [address]- 2541 16 Nov, 2009 [facility] [address] [id number] [place] [address]- 6406 Jul, [facility] [place] [facility] [address] [id number] [place] [address] 2545 Jun, [facility] [place] [facility] [address] [facility] [id number] [place] [address]- 2548 Jun, [facility] [place] [facility] [address] [id number] [place] [address]- 2065 May, [facility] [address] [id number], [place] [address]- [address] May, [facility] [address] [id number], [place] [address]- [address]85 May, [facility] [address] [id number], [place] [address]- 1121 May, [facility] [id number], [place] [address] 25[address] May, [facility] [address] [id number], [place] [address]- [address]170 May, [facility] [address] [id number], [place] [address]- 7507 Apr, [facility] [address] [id number], [place] [address]- [address] Jan, IMMUNIZATIONS No Known Immunizations SOCIAL HISTORY Never Assessed REASON FOR VISIT refill PLAN OF CARE VITAL SIGNS MEDICATIONS Medication Instructions Dosage Frequency Start Date End Date Duration Status Tramadol HCl 50 mg Orally every 6 hrs must last 30 days 1 tablet as needed 0 days Active Lyrica 150 MG Orally 3 times a day 1 capsule 8h 0 days Active Ativan 0.5 MG Orally every 6 hrs must last 30 days 1 tablet as needed Apr, 0 days Active RESULTS No Results PROCEDURES [...]
--- OUTSIDE RECORDS SUMMARY | 2018-02-13 11:02 | XMS REPORT ---
Author Author DYLLAN GAMING [facility] Address [address] [place] [address] Care Team Providers Care Electrical Maintenance Supervisor Name Role Phone DYLLAN GAMING Unavailable PROBLEMS Type Condition ICD9-CM Code CDB75-ON Code Onset Dates Condition Status SNOMED Code Problem Irritable bowel syndrome with both constipation and diarrhea K58.2 Active 54234556 Problem Gastroparesis K31.84 Active 803120408 Problem Gastric pain R10.9 Active 605595331 Problem Urge incontinence of urine N39.41 Active 87750200 Problem Gastroparesis due to secondary diabetes E13.43 Active 1519831 Problem Stress incontinence N39.3 Active 21681525 Problem Diabetes type 2, controlled E11.9 Active 58995770 Problem Anxiety F41.9 Active 33452617 Problem Chronic diarrhea K52.9 Active 466734353 Problem GERD without esophagitis K21.9 Active 133095667 Problem Diarrhea, unspecified type R19.7 Active 55379293 Problem Post traumatic stress disorder (PTSD) F43.10 Active 23282998 Problem Other chronic pain G89.29 Active 68093519 Problem PTSD (post-traumatic stress disorder) F43.10 Active 68562640 Problem Diabetic polyneuropathy associated with type 2 diabetes mellitus E11.42 Active 57147895 Problem Acquired hypothyroidism E03.9 Active 116577212 Problem Pain in right knee M25.561 Active 889459074995848 Problem Constipation by delayed colonic transit K59.01 Active 26283910 Problem Diabetes type 2, uncontrolled E11.65 Active 754128031 Problem Anxiety about health F41.8 Active 045419321 Problem Left foot pain M79.672 Active 10999389 Problem Chronic constipation K59.00 Active 060571931 Problem Pain in left knee M25.562 Active 972721808114151 Problem Low back pain M54.5 Active 409090582 ALLERGIES No Information SOCIAL HISTORY Never Assessed [...]
--- OUTSIDE RECORDS SUMMARY | 2018-02-13 11:03 | XMS REPORT ---
Author Author DYLLAN GAMING [facility] Address [address] [place] [address] Care Team Providers Care Shank Piece Tacker Name Role Phone DYLLAN GAMING Unavailable PROBLEMS Type Condition ICD9-CM Code AHL37-DK Code Onset Dates Condition Status SNOMED Code Problem Neutrophilia D72.9 Active 041057974 Problem Lymphocytosis D72.820 Active 39895438 Problem Chronic constipation K59.00 Active 097545762 Problem Diabetes type 2, uncontrolled E11.65 Active 547682745 Problem Anxiety F41.9 Active 12187819 Problem Diabetes type 2, controlled E11.9 Active 13130619 Problem Gastroparesis due to secondary diabetes E13.43 Active 9276944 Problem Diabetic polyneuropathy associated with type 2 diabetes mellitus E11.42 Active 41768484 Problem Acquired hypothyroidism E03.9 Active 623781516 Problem Post traumatic stress disorder (PTSD) F43.10 Active 06935134 Problem Other chronic pain G89.29 Active 76800632 Problem Diarrhea, unspecified type R19.7 Active 55741802 Problem PTSD (post-traumatic stress disorder) F43.10 Active 28174352 Problem Stress incontinence N39.3 Active 25353668 Problem Lumbago with sciatica, right side M54.41 Active 538525248 Problem Urge incontinence of urine N39.41 Active 73660446 Problem Leukocytosis, unspecified type D72.829 Active 253219823 Problem Sleep apnea in adult G47.30 Active 72009181 Problem Pain in right knee M25.561 Active 583147324703784 Problem Pain in left knee M25.562 Active 992426750664106 Problem Anxiety about health F41.8 Active 269576335 Problem Mixed stress and urge urinary incontinence N39.46 Active 447414898 Problem Mendez''s esophagus with dysplasia K22.719 Active 253679838 Problem Current moderate episode of major depressive disorder without prior episode F32.1 Active 56570436 Problem Syncope, unspecified syncope type R55 Active 364228181 Problem Low back pain M54.5 Active 152281176 Problem Irritable bowel syndrome with both constipation and diarrhea K58.2 Active 88169432 Problem Constipation by delayed colonic transit K59.01 Active 38495563 Problem Left foot pain M79.672 Active 60943761 Problem GERD without esophagitis K21.9 Active 062548051 Problem Chronic diarrhea K52.9 Active 321228027 Problem Gastric pain R10.9 Active 570956476 Problem Gastroparesis K31.84 Active 493751264 ALLERGIES Substance Reaction Event Type Date Status Sulfamethoxazole-Trimethoprim swelling Drug Allergy Jan, Active ENCOUNTERS Encounter Location Date Diagnosis [facility] [address] [address] December, [place] [id number] [place] [address] [id number] Oct, Other chronic pain G89.29 ; Anxiety F41.9 and Diabetic polyneuropathy associated with type 2 diabetes mellitus E11.42 [place] [id number] [place] [address] [id number] Oct, Neutrophilia D72.[address] [id number] Sep, Neutrophilia D72.9 ; Lymphocytosis D72.820 and Leukocytosis, unspecified type D72.829 [place] [address] [place] [address] [id number] Sep, Leukocytosis, unspecified type D72.829 ; Vaginal discharge N89.8 ; Cramp of toe R25.2 ; Sleep apnea in adult G47.30 ; Diabetic polyneuropathy associated with type 2 diabetes mellitus E11.42 ; Anxiety F41.9 ; Other chronic pain G89.29 ; Acquired hypothyroidism E03.9 ; Gastroparesis K31.84 ; PTSD (post- traumatic stress disorder) F43.10 ; Sinus congestion R09.81 and BMI 40.0-44.9, adult Z68.41 [place] [id number] [place] [address] [id number] Sep, Syncope, unspecified syncope type R55 ; [...] R09.89 and Swelling of lower extremity M79.89 [facility] [address] [place] [address] [id number] Aug, Carbuncle and furuncle of buttock L02.33 ; Radicular pain of lower extremity M54.10 ; Mixed stress and urge urinary incontinence N39.46 ; Nail ingrowing L60.0 and BMI 40.0-44.9, adult Z68.41 [facility] [address] [address] Aug, [facility] [address] [place] [address] [id number] Aug, Diabetic polyneuropathy associated with type 2 diabetes mellitus E11.42 ; Anxiety F41.9 and Other chronic pain G89.29 [facility] 120 [facility] [id number] [id number] Jul, [facility] [address] [place] [address] [id number]- 4744 Jul, [address] [id number] [id number] Jul, Diabetic polyneuropathy associated with type 2 diabetes mellitus E11.42 ; Anxiety F41.9 and Other chronic pain G89.29 [facility] [address] [facility] [id number] [place] [address] [id number] Jul, BMI 40.0-44.9, adult Z68.41 ; Diabetes type 2, controlled E11.9 ; Sinus congestion R09.81 ; Sore throat J02.9 ; Gastroparesis K31.84 ; Mendez''s esophagus with dysplasia K22.719 ; Lumbago with sciatica, right side M54.41 and Other chronic pain G89.29 [facility] [address] [place] [address]- [address] Jul, [place] [id number] [place] [address] [id number] Jun, Acute non-recurrent frontal sinusitis J01.10 ; Acute diffuse otitis externa of both ears H60.313 and BMI 40.0-44.9, adult Z68.[address] [id number] Jun, Diabetic polyneuropathy associated with type 2 diabetes mellitus E11.42 ; Other chronic pain G89.29 and Anxiety F41.9 [place] [address] [place] [address] [id number] Jun, [address] [id number] Apr, Anxiety F41.9 ; Gastroparesis K31.84 ; Other chronic pain G89.29 ; PTSD ( post-traumatic stress disorder) F43.10 ; Acquired hypothyroidism E03.9 ; Diabetic polyneuropathy associated with type 2 diabetes mellitus E11.42 ; Chronic seasonal allergic rhinitis, unspecified trigger J30.2 ; Urge incontinence of urine N39.41 ; Acute diffuse otitis externa of right ear H60.311 and BMI 45.0-49.9, adult Z68.42 [place] [address] [place] [address] [id number] 14 Apr, 2017 Chronic seasonal allergic rhinitis, unspecified trigger J30.2 and Encounter for immunization Z23 [address] [id number] Apr, Diabetic polyneuropathy associated with type 2 diabetes mellitus E11.42 ; Acute pain of right knee M25.561 and Post traumatic stress disorder (PTSD) F43.10 [facility] [address] [place] [address] [id number]- [address] Mar, [facility] [id number] [id number] Mar, Well woman exam with routine gynecological exam Z01.419 ; Stress incontinence N39.3 ; High risk sexual behavior Z72.51 ; Screening breast examination Z12.31 and Nausea R11.0 [place] [id number][place] [id number] Mar, Other chronic pain G89.29 ; Bladder leak R32 ; Sore throat J02.9 ; Post traumatic stress disorder (PTSD) F43.10 and Acute pain of right knee M25.561 [address]00565100[place] [address] Feb, [place] [address] [place] [address] [id number] Feb, Acquired hypothyroidism E03.9 ; Diabetic polyneuropathy associated with type 2 diabetes mellitus E11.42 ; Other chronic pain G89.29 ; Diarrhea, unspecified type R19.7 ; GERD without esophagitis K21.9 ; Post traumatic stress disorder (PTSD) F43.10 ; Intentional self-harm by blunt object, subsequent encounter X79.XXXD and Acute pain of right knee M25.561 [address] [place] [address] [id number] Feb, Acquired hypothyroidism E03.9 [facility] [id number][place] [id number] Jan, Acquired hypothyroidism E03.9 ; Diabetic polyneuropathy associated with type 2 diabetes mellitus E11.42 ; Other chronic pain G89.29 ; Diarrhea, unspecified type R19.7 ; GERD without esophagitis K21.9 ; Post traumatic stress disorder (PTSD) F43.10 ; Intentional self-harm by blunt object, subsequent encounter X79.XXXD and Acute pain of right knee M25.561 [address] [place] [address] [id number] Jan, Acquired hypothyroidism E03.9 ; Diabetic polyneuropathy associated with type 2 diabetes mellitus E11.42 ; Other chronic pain G89.29 ; Diarrhea, unspecified type R19.7 ; GERD without esophagitis K21.9 ; Post traumatic stress disorder (PTSD) F43.10 and Intentional self-harm by blunt object, initial encounter X79.XXXA [facility] [address] [place] [id number] [place] [address] [id number] Jan, [address] [id number] December, PTSD (post-traumatic stress disorder) F43.10 ; Gastroparesis due to secondary diabetes E13.43 ; Chronic diarrhea K52.9 ; Non-seasonal allergic rhinitis due to pollen J30.1 and Constipation by delayed colonic transit K59.01 [facility] [address] [address] December, [address] [id number] December, Diabetic polyneuropathy associated with type 2 diabetes mellitus E11.[address] [id number] December, Diabetes type 2, uncontrolled E11.65 ; GERD without esophagitis K21.9 and PTSD (post-traumatic stress disorder) F43.10 [facility] [address] [place] [id number] [place] [address] [id number] Nov, Anxiety F41.9 [place] [address] [place] [address] [id number] Nov, Diabetic polyneuropathy associated with type 2 diabetes mellitus E11.42 [place] [address] [place] [address] [id number] Oct, Anxiety F41.[address] [id number] Sep, Gastroparesis due to secondary diabetes E13.43 and Anxiety F41.9 [facility] [address] [address] Aug, [facility] [address] [id number] Aug, Chronic constipation K59.09 and Diarrhea, unspecified type R19.7 [facility] [address] [id number] Aug, Diabetic polyneuropathy associated with type 2 diabetes mellitus E11.42 [facility] [address] [place] [address] [id number] Aug, Gastroparesis K31.84 ; Diabetes type 2, uncontrolled E11.65 ; Gastric pain R10.9 ; Irritable bowel syndrome with both constipation and diarrhea K58.2 and Chronic constipation K59.00 [facility] [address] [place] [address] [id number] Aug, Dark stools R19.5 [facility] [address] [place] [address] [id number] 10 Aug, 2016 Gastroparesis K31.84 and Chronic constipation K59.00 [facility] [address] [place] [address] [id number] 09 Aug, 2016 Dark stools R19.5 ; Diabetes type 2, uncontrolled E11.65 ; Gastroparesis due to secondary diabetes E13.43 and Constipation by delayed colonic transit K59.01 [facility] [address] [place] [address] [id number] Aug, Anxiety F41.9 [address] [place] [address] [id number] Aug, Nausea R11.0 ; Left foot pain M79.672 ; Pain in right knee M25.561 ; Low back pain M54.5 and Other chronic pain G89.29 [facility] [address] [place] [address] Jul, [facility] [id number] [place] [address] [id number] Jul, [facility] [address] [place] [id number] [place] [address]- [address] Jul, PTSD (post-traumatic stress disorder) F43.10 [facility] [address] [place] [address] [id number] Jul, Anxiety F41.9 [facility] [address] [place] [address] [id number]- 2730 Jul, [place] [address] [facility] [id number] [id number] Jul, PTSD (post-traumatic stress disorder) F43.10 [facility] [id number] [place] [address] [id number] Jul, Diabetes type 2, uncontrolled E11.65 ; Left foot pain M79.672 ; Toe pain, right M79.674 ; Low back pain M54.5 ; Other chronic pain G89.29 ; Pain in right knee M25.561 ; PTSD (post-traumatic stress disorder) F43.10 and Anxiety F41.9 [facility] [address] [id number] Jul, [facility] [address] [place] [id number] [place] [address] [id number] Jun, PTSD (post-traumatic stress disorder) F43.10 [facility] [address]100[place] [id number] Jun, [facility] [address] [address] Jun, [facility] [address] [id number] Jun, PTSD (post-traumatic stress disorder) F43.10 [facility] [id number], [place] [id number] Jun, [facility] [address], [place] [id number] Jun, Cellulitis of right lower extremity L03.115 ; Other chronic pain G89.29 ; Pain in right knee M25.561 ; Pain in left knee M25.562 and Anxiety about health F41.8 [facility] [address] [id number] May, Anxiety F41.9 [place] [address] [place] [address] [id number] May, PTSD (post-traumatic stress disorder) F43.10 [address]100[place] [id number] May, Diabetes type 2, uncontrolled E11.65 ; Diabetic polyneuropathy associated with type 2 diabetes mellitus E11.42 ; Gastroparesis due to secondary diabetes E13.43 ; Anxiety F41.9 ; Other chronic pain G89.29 ; Pain in right knee M25.561 ; Pain in left knee M25.562 ; Acquired hypothyroidism E03.9 and Chronic constipation K59.00 [facility] [address] [place] [id number] [place] [address] 22575- 9461 May, [facility] [address] [place] [id number] [place] [address] [id number] May, [facility] [address] [place] [id number] [place] [address] [id number] Apr, [facility] [address] [id number] Apr, [facility] [address] [place] [id number] [place] [address] [id number]- [phone] Apr, [facility] [address] [place] [id number] [place] [address] [id number] Apr, [facility] [address] [place] [id number] [place] [address] [id number] [phone] Apr, [facility] [address] [place] [id number] [place] [address] [id number] Apr, Diabetes type 2, uncontrolled E11.65 ; Diabetic polyneuropathy associated with type 2 diabetes mellitus E11.42 ; Gastroparesis due to secondary diabetes E13.43 and Encounter for immunization Z23 [facility] [address] [place] [id number] [place] [address] [id number] Apr, Gastroparesis K31.84 and Diabetes type 2, controlled E11.9 [facility] [address] [place] [id number] [place] [address] [id number] Mar, Diabetes type 2, controlled E11.9 ; Chronic constipation K59.00 and Gastroparesis K31.84 [facility] [address] [place] [id number] [place] [address] [id number] Mar, [facility] [address] [place] [id number] [place] [address] [id number] Mar, Diabetes type 2, controlled E11.9 [facility] [place] [address] [id number] [place] [id number] Mar, [facility] [place] [address] [id number] [place] [id number] Feb, [facility] [place] [address] [id number] [place] [id number] Feb, [facility] [place] [address] [id number] [place] [id number] Feb, Diabetes type 2, controlled E11.9 [facility] [place] [address] [id number] [place] [id number] Feb, [facility] [place] [address] [id number] [place] [id number] Jan, [facility] [place] [address] [id number] [place] [id number] Jan, [facility] [place] [address] [id number] [place] [id number] Jan, Diabetes type 2, controlled E11.9 [facility] [place] [address] [id number] [place] [id number] December, [facility] [place] [address] [id number] [place] [id number] December, Diabetes type 2, uncontrolled E11.65 and Diabetes type 2, controlled E11.9 [facility] [place] [address] [id number] [place] [id number] December, [facility] [place] [address] [id number] [place] [id number] Nov, Wound of toenail, subsequent encounter S91.209D and Plantar fascia syndrome M72.2 [facility] [place] [address] [id number] [place] [id number] Nov, Ingrown toenail L60.0 [facility] [place] [address] [id number] [place] [id number] Nov, Wound of toenail, subsequent encounter S91.209D [facility] [place] [address] [id number] [place] [id number] Nov, Tinea unguium B35.1 and Ingrowing nail L60.0 [facility] [place] [id number], [place] [id number] Nov, Ingrown toenail L60.0 [facility] [place] [address] [place] [id number] [place] [address] [id number] Nov, Cellulitis of right lower extremity L03.115 [facility] [address] [place] [id number] [place] [address] [id number] Nov, Ingrown toenail L60.0 and Diabetes type 2, controlled E11.9 [facility] [address] [place] [id number] [place] [address] [id number] Oct, [facility] [address] [place] [address] [place] [address] [id number] Oct, Anxiety F41.9 [facility] [address] [place] [id number] [place] [address] [id number] Sep, [place] [address] [place] [address] [place] [address] [id number] Sep, Elevated white blood cell count D72.829 and Multiple joint pain M25.50 [facility] [address] [place] [id number] [place] [address] [id number] Sep, Diabetes type 2, uncontrolled E11.65 ; Onychomycosis B35.1 ; Skin candidiasis B37.2 and Anxiety F41.9 [facility] [id number] [place] [address] [id number] Aug, [facility] [address] [place] [id number] [place] [address] [id number] Aug, [facility] [address] [place] [address] [place] [address] [id number] Jul, Diabetes type 2, uncontrolled E11.65 [facility] [address] [place] [id number] [place] [address] [id number] Jul, [facility] [address] [place] [id number] [place] [address] [id number] Jul, Diabetes type 2, uncontrolled E11.65 [facility] [id number] [place] [address] [id number] Jul, [facility] [address] [id number] [id number] Jun, [facility] [address]100[place] [address]- 84[address] Jun, [facility] [id number] [place] [address] [id number] Jun, Diabetes type 2, uncontrolled E11.65 ; Chronic constipation K59.00 and Anxiety F41.9 [facility] [address] [facility] [address] [id number][place] [id number] Jun, Plantar fascia syndrome M72.2 [facility] [address] [place] [address] [id number] May, [address] [place] [address] [id number] May, [address] [place] [address] [id number] May, Encounter for immunization Z23 ; Diabetes type 2, uncontrolled E11.65 and Depression with anxiety F41.8 [address] [id number] Apr, Chronic constipation 564.00 ; Insomnia, unspecified 780.52 ; Diabetes mellitus, type 2 250.00 ; PTSD (post-traumatic stress disorder) 309.81 and [facility]xiety and depression 300.00 [facility] [address] [facility] [id number] [id number] Apr, [place] [id number] [id number] Apr, Anxiety and depression 300.00 and PTSD (post-traumatic stress disorder) 309.81 [place] [id number] [id number] Mar, [address] [place] [address] [id number] Mar, Follow up V67.9 ; Social anxiety disorder 300.23 and Acid reflux 530.81 [address]00565100[place], [place] [id number] Feb, [place] [id number] [id number] Feb, [facility] [place] [id number], [place] [id number] Feb, [facility] [place] [id number] [place] [address] [id number] Feb, [facility] [address]100[place] [address]- 25[address] Feb, [facility] [place] [id number] [place] [address] [id number] Feb, Unspecified hereditary and idiopathic peripheral neuropathy 356.9 ; Heartburn 787.1 ; Uncontrolled type 2 diabetes with neuropathy 250.62 ; Otitis externa 380.10 and HEP B (ADULT) DX V05.3 [facility] [place] [id number] [place] [address] [id number] Jan, [facility] [place] [id number] [place] [address] [id number] December, [facility] [address] [id number] [place] [address] 19009- 8166 Nov, [facility] [address] [place] [id number] [place] [address] 98427- 7693 Nov, [facility] [place] [facility] [address] [id number] [place] [address] 47969- 7066 Oct, [facility] [address]100[place] [address]- 5498 Oct, [facility] [place] [id number], [place] [id number] Oct, [facility] [place] [facility] [address] [place] [address] 60593- 4849 Oct, [facility] [place] [facility] [address] [id number] [place] [address] 46131- 3484 Oct, [facility] [place] [facility] [id number] [place] [address] 48568- 9946 Oct, [facility] [place] [id number], [place] [id number] Oct, [facility] [place] [facility] [address] [facility] [id number] [place] [address]- 2546 Oct, [facility] [place] [address] [facility] [id number] [place] [id number] Oct, [facility] [place] [facility] [address] [facility] [id number] [place] [address]- 25[address] Oct, [facility] [place] [address] [facility] [id number] [place] [id number] Oct, [facility] [place] [address] [facility] [id number] [place] [id number] Oct, [facility] [place] [facility] [address] [facility] [id number] [place] [address]- 2546 Oct, [facility] [place] [facility] [address] [place] [id number] [address]- 2546 Oct, [facility] [place] [id number], [place] [id number] Oct, [facility] [place] [facility] [address]00565100[place] [address]- 2546 Oct, [facility] [place] [facility] [address]100[facility] [place] [address]- 6014 Sep, [facility] [place] [facility] [address] [place] [address] [id number] [address]- 3286 Sep, [facility] [address] [id number] [id number] Sep, [facility] [place] [facility] [id number] [address] Sep, [facility] [place] [facility] [address] [id number] [address] Sep, [facility] [place] [facility] [id number] [address] Sep, [facility] [place] [facility] [address] [id number] [address] Aug, [facility] [address] [id number] [id number] Aug, [facility] [place] [facility] [address] [facility] [id number] [place] [address] Aug, [facility] [place] [facility] [address] [facility] [id number] [place] [address] Aug, [facility] [address] [id number] [id number] Aug, [facility] [place] [facility] [address] [facility] [id number] [place] [address] Aug, [facility] [place] [facility] [address] [facility] [id number] [place] [address] Aug, [facility] [place] [facility] [address] [facility] [id number] [place] [address] Aug, [facility] [address] [id number] [id number] Aug, [facility] [address] [id number][place] [id number] Aug, [facility] [place] [facility] [address] [facility] [id number] [place] [address] Aug, [facility] [place] [facility] [address] [facility] [id number] [place] [address] Aug, [facility] [address] [id number][place] [id number] Jul, [facility] [place] [facility] [address] [facility] [id number] [place] [address] Jul, [facility] [address] [facility] [id number][place] [address] Jun, [facility] [place] [facility] [address] [facility] [id number] [place] [address] Jun, [facility] [address] [id number][place] [id number] Jun, [facility] [place] [facility] [address] [facility] [id number] [place] [address] Jun, [facility] [address] [id number] [place] [address] Jun, [facility] [place] [facility] [address] [facility] [id number] [place] [address] Jun, [facility] [place] [facility] [address] [facility] [id number] [place] [address] 134[address] May, [facility] [place] [facility] [address] [facility] [id number] [place] [address] May, [facility] [address] [id number][place] [id number] May, [facility] [place] [facility] [address] [facility] [id number] [place] [address]853 May, [facility] [address] [id number][place] [address] Apr, [facility] [place] [facility] [address] [facility] [id number] [place] [address] Apr, [facility] [address] [id number][place] [id number] Apr, [facility] [address] [id number] [place] [address] Apr, [facility] [place] [facility] [address] [facility] [id number] [place] [address]159 Apr, [facility] [place] [facility] [address] [id number] [place] [address] Apr, [facility] [address] [id number][place] [address] Apr, [facility] [place] [facility] [address] [id number] [place] [address] Apr, [facility] [address] [id number][place] [id number] Apr, [facility] [place] [facility] [address] [facility] [id number] [place] [address] [address] Apr, [facility] [address] [id number][place] [address] Feb, [facility] [place] [facility] [address] [id number] [place] [address] Feb, [facility] [address] [id number] [place] [address] Feb, [facility] [place] [facility] [address] [facility] [id number] [place] [address] 28[address] Feb, [facility] [place] [facility] [address] [facility] [id number] [place] [address] Jan, [facility] [place] [facility] [address] [facility] [id number] [place] [address]194 Jan, [facility] [place] [facility] [address] [facility] [id number] [place] [address] Jan, [facility] [address] [facility] [id number] [place] [address] Jan, [facility] [place] [facility] [address] [facility] [id number] [place] [address] Jan, [facility] [place] [facility] [address] [facility] [id number] [place] [address] Jan, [facility] [address] [id number][place] [address] Jan, [facility] [place] [facility] [address] [facility] [id number] [place] [address] Jan, [facility] [address] [id number], [place] [id number] December, [facility] [place] [facility] [address] [id number] [place] [address] December, [facility] [address] [id number] [place] [id number] December, [facility] [address] [id number] [place] [id number] December, [facility] [address] [id number] [place] [address] December, [facility] [place] [facility] [address] [facility] [id number] [place] [address] December, [facility] [place] [facility] [address] [facility] [id number] [place] [address] December, [facility] [place] [facility] [address] [facility] [id number] [place] [address] December, [facility] [address] [facility] [id number][place] [id number] Nov, [facility] [place] [facility] [address] [facility] [id number] [place] [address] 2546 Nov, [facility] [address] [facility] [id number][place] [id number] Oct, [facility] [place] [facility] [id number] [address] Oct, [facility] [place] [facility] [id number] [address] Sep, [facility] [place] [facility] [id number] [address] Sep, [facility] [address] [facility] [id number], [place] [address]76 Aug, [facility] [address] [id number][place] [address]287 Aug, [facility] [place] [facility] [id number] [place] [address] Aug, [facility] [place] [facility] [address] [facility] [id number] [place] [address]- [address]17 Aug, [facility] [address] [facility] [id number][place] [address]64 Jul, [facility] [place] [facility] [address] [facility] [id number] [place] [address] Jul, [facility] [address] [facility] [id number][place] [id number] Jul, [facility] [place] [facility] [address] [id number] [place] [address] Jul, [facility] [address] [id number] [place] [address] Jun, [facility] [address] [facility] [id number] [place] [address]- 7253 Jun, [facility] [address] [id number] [place] [address] Apr, [facility] [address] [id number] [place] [address] Mar, [facility] [address] [id number] [place] [id number] Mar, [facility] [address] [id number] [place] [id number] Mar, [facility] [address] [id number] [place] [address] Mar, [facility] [address] [id number] [id number] Feb, [facility] [address] [id number] [place] 66[address] Jan, [facility] [address] [id number] [place] 94[address] Jan, [facility] [address] [id number] [place] [id number] Jan, [facility] [address] [id number] [place] [address] Jan, [facility] [address] [id number] [place] [address] December, [facility] [address] [id number] [place] [address] December, [facility] [address] [id number] [place] [address] December, [facility] [address] [facility] [id number] [place] [address]- [address] Jul, [facility] [address] [id number] [place] [address] Jul, [facility] [address] [id number] [place] [address] Jul, [facility] [address] [id number], [place] 899[address]404 Jul, [facility] [address] [id number] [place] [address] Jul, [facility] [place] [facility] [address] [id number] [place] [address]- 4376 Jul, [facility] [place] [facility] [address] [facility] [id number] [place] [address]- 1546 Jul, [facility] [place] [facility] [address] [id number] [place] [address]- 245[address] Jul, [facility] [address] [id number] [place] [address] Jun, [facility] [place] [facility] [address] [facility] [id number] [place] [address]- 7876 Jun, [facility] [place] [facility] [address] [facility] [id number] [place] [address]- 0601 Jul, [facility] [place] [facility] [address] [facility] [id number] [place] [address]- 1352 Jul, [facility] [place] [facility] [address] [facility] [id number] [place] [address] Jul, [facility] [place] [facility] [address] [facility] [id number] [place] [address]- 4741 Jul, [facility] [place] [facility] [address] [facility] [id number] [place] [address]- 0814 Jun, [facility] [place] [facility] [address] [facility] [id number] [place] [address]- 7792 Jun, [facility] [place] [facility] [address] [facility] [id number] [place] [address]- 3958 Jun, [facility] [place] [facility] [address] [facility] [id number] [place]- [address]140 Jun, [facility] [place] [facility] [address] [facility] [id number] [place] [address]- 7133 Jun, [facility] [place] [facility] [address] [id number] [place] [address]- 7301 27 May, 2010 [facility] [place] [facility] [address] [id number] [place] [address]- 4356 19 May, 2010 [facility] [place] [facility] [address] [id number] [place] [address] 2546 13 May, 2010 [facility] [place] [facility] [address] [id number] [place] [address] 2546 13 May, 2010 [facility] [place] [facility] [address] [id number] [place] [address] 2548 16 Nov, 2009 [facility] [place] [facility] [address] [id number] [place] [address]- 5732 28 Jul, 2009 [facility] [place] [facility] [address] [id number] [place] [address]- 3734 25 Jun, 2009 [facility] [place] [facility] [address] [id number] [place] [address]- 8594 09 Jun, 2009 [facility] [place] [facility] [address] [id number] [place] [address]- 4182 29 May, 2009 [facility] [place] [facility] [address] [id number] [place] [address]- 1809 28 May, 2009 [facility] [place] [facility] [address] [facility] [id number] [place] [address]- 9805 26 May, 2009 [facility] [place] [facility] [address] [id number] [place] [address]- 2546 14 May, 2009 [facility] [place] [facility] [address] [id number] [place] [address] 2548 14 May, 2009 [facility] [place] [facility] [address] [id number] [place] [address] 2546 12 May, 2009 [facility] [place] [facility] [address] [id number] [place] [address] 2546 18 Sep2008 [facility] [place] [facility] [address] [id number] [place] [address] 8555 Jan, IMMUNIZATIONS No Known Immunizations SOCIAL HISTORY Never Assessed REASON FOR VISIT Depression follow up [facility] PLAN OF CARE Activity Details Follow Up 1 Week Reason:CHM Knee pain and PTSD VITAL SIGNS Height 62 in 2017-02-02 Weight 260.6 lbs 2017-02-02 Temperature 97.4 degrees Fahrenheit 2017-02-02 Heart Rate 80 bpm 2017-02-02 Respiratory Rate 18 2017-02-02 BMI 47.66 kg/m2 2017-02-02 Blood pressure systolic 110 mmHg 2017-02-02 Blood pressure diastolic 64 mmHg 2017-02-02 MEDICATIONS Medication Instructions Dosage Frequency Start Date End Date Duration Status Glucometer 1 glucometer as directed Jan, Active Trulicity 1.5 MG/0.5ML Subcutaneous once weekly 0.5 ml Active Linzess 145 MCG Orally Once a day (DX: chronic constipation/abd pain) 1 capsule May, Active Lisinopril 2.5 MG TAKE ONE (1) TABLET BY MOUTH DAILY... 90 Active Prevacid 30 MG Orally Once a day 1 capsule 24h Active Voltaren 1 % Transdermal 2 times a day as directed 12h Active Singulair 10 mg Orally Once a day 1 tablet in the evening 24h December, 0 days Active Clonazepam 1 MG Orally Once a day 1.5 tabs in pm 24h Active BusPIRone HCl 10 MG TAKE ONE (1) TABLET BY MOUTH TWICE DAILY... Active Zofran 8 MG Orally Once a day as needed for nausea 1 tablet Active Escitalopram Oxalate 20 mg Orally Once a day 1 tablet 24h Active Levothyroxine Sodium 25 MCG Orally Once a day 1 tablet 24h Active Fluticasone Propionate 50 MCG/ACT Nasally Once a day 1 spray in each nostril 24h Active TRUEplus Lancets 28G - USE TO CHECK BLOOD SUGAR FOUR (4) TIMES DAILY... Active Blood Glucose Test Strip ... subcutaneously 4 times a day as directed 6h Jan, Active Metformin HCl 850 MG Orally twice a day 1 tablet with a meal 12h Jul, Active Tramadol HCl 50 mg Orally every 6 hrs 1 tablet as needed 6h Jan, Feb, 14 days Active Hydrochlorothiazide 12.5 MG TAKE ONE (1) CAPSULE BY MOUTH ONCE DAILY... Active Pen [place] 29G X 12MM subcutaneous 4 times a day Inject 6h Active Lyrica 150 MG Orally 3 times a day 1 capsule 8h 0 days Active Vitamin D-3 1000 UNIT Orally Once a day 1 capsule 24h Active Mobic 7.5 MG Orally twice a day 1 tablet 12h Jun, Active HydrOXYzine HCl 50 MG Orally 3 times a day 1/2 in am 1/2 tab noon and 1 tablet at bedtime 8h Active Sucralfate 1 GM Orally twice per day 1 tablet on an empty stomach and crush and dissolve in water 30mins before taking 0 Active RESULTS Name Result Date Reference Range Xray : Knee, Right PROCEDURES No Known procedures INSTRUCTIONS MEDICATIONS ADMINISTERED [...]
--- OUTSIDE RECORDS SUMMARY | 2018-02-13 11:04 | XMS REPORT ---
Author Author DYLLAN GAMING [facility] Address [address] [place] [address] Care Team Providers Care Senior Technical Analyst Name Role Phone DYLLAN GAMING Unavailable PROBLEMS Type Condition ICD9-CM Code BNE50-NA Code Onset Dates Condition Status SNOMED Code Problem Irritable bowel syndrome with both constipation and diarrhea K58.2 Active 75064737 Problem Gastroparesis K31.84 Active 731470223 Problem Gastric pain R10.9 Active 630210483 Problem Urge incontinence of urine N39.41 Active 76253051 Problem Gastroparesis due to secondary diabetes E13.43 Active 0564813 Problem Stress incontinence N39.3 Active 07449919 Problem Diabetes type 2, controlled E11.9 Active 93934145 Problem Anxiety F41.9 Active 71324034 Problem Chronic diarrhea K52.9 Active 906916135 Problem GERD without esophagitis K21.9 Active 402248570 Problem Diarrhea, unspecified type R19.7 Active 41636820 Problem Post traumatic stress disorder (PTSD) F43.10 Active 19546823 Problem Other chronic pain G89.29 Active 61159429 Problem PTSD (post-traumatic stress disorder) F43.10 Active 16328129 Problem Diabetic polyneuropathy associated with type 2 diabetes mellitus E11.42 Active 53282526 Problem Acquired hypothyroidism E03.9 Active 968719646 Problem Pain in right knee M25.561 Active 915543200585272 Problem Constipation by delayed colonic transit K59.01 Active 21568835 Problem Diabetes type 2, uncontrolled E11.65 Active 867117998 Problem Anxiety about health F41.8 Active 786026712 Problem Left foot pain M79.672 Active 37398920 Problem Chronic constipation K59.00 Active 969484868 Problem Pain in left knee M25.562 Active 178745111368753 Problem Low back pain M54.5 Active 950713014 ALLERGIES No Information SOCIAL HISTORY Never Assessed PLAN OF CARE VITAL SIGNS MEDICATIONS Unknown [...]
--- OUTSIDE RECORDS SUMMARY | 2018-02-13 11:04 | XMS REPORT ---
Author Author DYLLAN GAMING [facility] Address [address] [place] [address] Care Team Providers Care Log Carrier Operator Name Role Phone DYLLAN GAMING Unavailable PROBLEMS Type Condition ICD9-CM Code OUL26-UW Code Onset Dates Condition Status SNOMED Code Problem Neutrophilia D72.9 Active 738756457 Problem Lymphocytosis D72.820 Active 78870089 Problem Chronic constipation K59.00 Active 947487530 Problem Diabetes type 2, uncontrolled E11.65 Active 062762582 Problem Anxiety F41.9 Active 71330354 Problem Diabetes type 2, controlled E11.9 Active 61894062 Problem Gastroparesis due to secondary diabetes E13.43 Active 5269045 Problem Diabetic polyneuropathy associated with type 2 diabetes mellitus E11.42 Active 28060688 Problem Acquired hypothyroidism E03.9 Active 776307086 Problem Post traumatic stress disorder (PTSD) F43.10 Active 44626179 Problem Other chronic pain G89.29 Active 52792604 Problem Diarrhea, unspecified type R19.7 Active 04103065 Problem PTSD (post-traumatic stress disorder) F43.10 Active 59491086 Problem Stress incontinence N39.3 Active 76460388 Problem Lumbago with sciatica, right side M54.41 Active 656853755 Problem Urge incontinence of urine N39.41 Active 85687873 Problem Leukocytosis, unspecified type D72.829 Active 167475087 Problem Sleep apnea in adult G47.30 Active 42210451 Problem Pain in right knee M25.561 Active 306372555637822 Problem Pain in left knee M25.562 Active 410300732582293 Problem Anxiety about health F41.8 Active 008580004 Problem Mixed stress and urge urinary incontinence N39.46 Active 904441752 Problem Mendez''s esophagus with dysplasia K22.719 Active 224703472 Problem Current moderate episode of major depressive disorder without prior episode F32.1 Active 96015505 Problem Syncope, unspecified syncope type R55 Active 414591071 Problem Low back pain M54.5 Active 661672246 Problem Irritable bowel syndrome with both constipation and diarrhea K58.2 Active 04503749 Problem Constipation by delayed colonic transit K59.01 Active 22503267 Problem Left foot pain M79.672 Active 59640416 Problem GERD without esophagitis K21.9 Active 611043047 Problem Chronic diarrhea K52.9 Active 627560274 Problem Gastric pain R10.9 Active 820568535 Problem Gastroparesis K31.84 Active 548136557 ALLERGIES Substance Reaction Event Type Date Status Sulfamethoxazole-Trimethoprim swelling Drug Allergy Mar, Active ENCOUNTERS Encounter Location Date Diagnosis [facility] [place] [id number] [place] [address]40- [address] December, [id number] [place] [address] [id number] Nov, Diabetic polyneuropathy associated with type 2 diabetes mellitus E11.42 ; Anxiety F41.9 and Other chronic pain G89.29 [id number] [place] [address] [id number] Oct, Other chronic pain G89.29 ; Anxiety F41.9 and Diabetic polyneuropathy associated with type 2 diabetes mellitus E11.[address] [place] [address] [id number] Oct, Neutrophilia D72.9 [id number] [place] [address] [id number] Sep, Neutrophilia D72.9 ; Lymphocytosis D72.820 and Leukocytosis, unspecified type D72.829 [address] [place] [address] [id number] Sep, Leukocytosis, unspecified type D72.829 ; Vaginal discharge N89.8 ; Cramp of toe R25.2 ; Sleep apnea in adult G47.30 ; Diabetic polyneuropathy associated with type 2 diabetes mellitus E11.42 ; Anxiety F41.9 ; Other chronic pain G89.29 ; Acquired hypothyroidism E03.9 ; Gastroparesis K31.84 ; PTSD (post- traumatic stress disorder) F43.10 ; Sinus congestion R09.81 and BMI 40.0-44.9, adult Z68.41 [address] [id number] 14 Sep, 2018 Syncope, unspecified syncope type [...] R09.89 and Swelling of lower extremity M79.[address] [place] [address] [id number] Aug, Carbuncle and furuncle of buttock L02.33 ; Radicular pain of lower extremity M54.10 ; Mixed stress and urge urinary incontinence N39.46 ; Nail ingrowing L60.0 and BMI 40.0-44.9, adult Z68.41 [facility] [place] [address] [phone]- [address] Aug, [address] [place] [address] [id number] Aug, Diabetic polyneuropathy associated with type 2 diabetes mellitus E11.42 ; Anxiety F41.9 and Other chronic pain G89.[address] [id number] [id number] Jul, [facility] [place] [id number] [place] [address] 10778- 8424 Jul, [address] [id number] [id number] Jul, Diabetic polyneuropathy associated with type 2 diabetes mellitus E11.42 ; Anxiety F41.9 and Other chronic pain G89.29 [id number] [place] [address] [id number] Jul, BMI 40.0-44.9, adult Z68.41 ; Diabetes type 2, controlled E11.9 ; Sinus congestion R09.81 ; Sore throat J02.9 ; Gastroparesis K31.84 ; Mendez''s esophagus with dysplasia K22.719 ; Lumbago with sciatica, right side M54.41 and Other chronic pain G89.29 [facility] [place] [address] 08357994- [address]102 Jul, [address] [place] [address] [id number] Jun, Acute non-recurrent frontal sinusitis J01.10 ; Acute diffuse otitis externa of both ears H60.313 and BMI 40.0-44.9, adult Z68.41 [id number] [place] [address] [id number] Jun, Diabetic polyneuropathy associated with type 2 diabetes mellitus E11.42 ; Other chronic pain G89.29 and Anxiety F41.[address] [place] [address] [id number] Jun, [address] [place] [address] [id number] Apr, Anxiety F41.9 ; Gastroparesis K31.84 ; Other chronic pain G89.29 ; PTSD ( post-traumatic stress disorder) F43.10 ; Acquired hypothyroidism E03.9 ; Diabetic polyneuropathy associated with type 2 diabetes mellitus E11.42 ; Chronic seasonal allergic rhinitis, unspecified trigger J30.2 ; Urge incontinence of urine N39.41 ; Acute diffuse otitis externa of right ear H60.311 and BMI 45.0-49.9, adult Z68.42 [id number] [place] [address] [id number] 14 Apr, 2017 Chronic seasonal allergic rhinitis, unspecified trigger J30.2 and Encounter for immunization Z23 [address] [place] [address] [id number] 11 Apr, 2017 Diabetic polyneuropathy associated with type 2 diabetes mellitus E11.42 ; Acute pain of right knee M25.561 and Post traumatic stress disorder (PTSD) F43.10 [facility] [place] [address] 43522574- [address] Mar, [facility] [id number] [place] [address] [id number] Mar, Well woman exam with routine gynecological exam Z01.419 ; Stress incontinence N39.3 ; High risk sexual behavior Z72.51 ; Screening breast examination Z12.31 and Nausea R11.0 [facility] [id number] [place] [address] [id number] Mar, Other chronic pain G89.29 ; Bladder leak R32 ; Sore throat J02.9 ; Post traumatic stress disorder (PTSD) F43.10 and Acute pain of right knee M25.561 [facility] [address] [place] [address] [id number] Feb, [id number] [place] [address] [id number] Feb, Acquired hypothyroidism E03.9 ; Diabetic polyneuropathy associated with type 2 diabetes mellitus E11.42 ; Other chronic pain G89.29 ; Diarrhea, unspecified type R19.7 ; GERD without esophagitis K21.9 ; Post traumatic stress disorder (PTSD) F43.10 ; Intentional self-harm by blunt object, subsequent encounter X79.XXXD and Acute pain of right knee M25.561 [facility] [id number], [place] [id number] Feb, Acquired hypothyroidism E03.9 [facility] [id number] [place] [address] [id number] Jan, Acquired hypothyroidism E03.9 ; Diabetic polyneuropathy associated with type 2 diabetes mellitus E11.42 ; Other chronic pain G89.29 ; Diarrhea, unspecified type R19.7 ; GERD without esophagitis K21.9 ; Post traumatic stress disorder (PTSD) F43.10 ; Intentional self-harm by blunt object, subsequent encounter X79.XXXD and Acute pain of right knee M25.561 [address] [place] [address] [id number] Jan, Acquired hypothyroidism E03.9 ; Diabetic polyneuropathy associated with type 2 diabetes mellitus E11.42 ; Other chronic pain G89.29 ; Diarrhea, unspecified type R19.7 ; GERD without esophagitis K21.9 ; Post traumatic stress disorder (PTSD) F43.10 and Intentional self-harm by blunt object, initial encounter X79.XXXA [id number] [place] [id number] Jan, [address] [id number] December, PTSD (post-traumatic stress disorder) F43.10 ; Gastroparesis due to secondary diabetes E13.43 ; Chronic diarrhea K52.9 ; Non-seasonal allergic rhinitis due to pollen J30.1 and Constipation by delayed colonic transit K59.01 [facility] [place] [address] [address]- [address] December, [id number] [place] [address] [id number] December, Diabetic polyneuropathy associated with type 2 diabetes mellitus E11.42 [id number] [place] [address] [id number] December, Diabetes type 2, uncontrolled E11.65 ; GERD without esophagitis K21.9 and PTSD (post-traumatic stress disorder) F43.10 [id number] [place] [address] [id number] Nov, Anxiety F41.9 [id number] [place] [address] [id number] Nov, Diabetic polyneuropathy associated with type 2 diabetes mellitus E11.42 [id number] [place] [address] [id number] Oct, Anxiety F41.9 [id number] [place] [address] [id number] Sep, Gastroparesis due to secondary diabetes E13.43 and Anxiety F41.9 [facility] [place] [address] 93988- 0037 Aug, [id number] [place] [address] [id number] Aug, Chronic constipation K59.09 and Diarrhea, unspecified type R19.7 [facility] [id number] [place] [address] [id number] Aug, Diabetic polyneuropathy associated with type 2 diabetes mellitus E11.42 [facility] [id number] [place] [address] [id number] Aug, 2016 Gastroparesis K31.84 ; Diabetes type 2, uncontrolled E11.65 ; Gastric pain R10.9 ; Irritable bowel syndrome with both constipation and diarrhea K58.2 and Chronic constipation K59.00 [id number] [place] [address] [id number] Aug, Dark stools R19.5 [id number] [place] [address] [id number] 10 Aug, 2016 Gastroparesis K31.84 and Chronic constipation K59.00 [id number] [place] [address] [id number] 09 Aug, 2016 Dark stools R19.5 ; Diabetes type 2, uncontrolled E11.65 ; Gastroparesis due to secondary diabetes E13.43 and Constipation by delayed colonic transit K59.01 [id number] [place] [address] [id number] Aug, Anxiety F41.9 [id number] [place] [address] [id number] Aug, Nausea R11.0 ; Left foot pain M79.672 ; Pain in right knee M25.561 ; Low back pain M54.5 and Other chronic pain G89.29 [facility] [place] [id number] [place] [address] [phone]- 8050 Jul, [address] [id number] Jul, [facility] [place] [id number] [place] [address] [phone] Jul, PTSD (post-traumatic stress disorder) F43.10 [address] [id number] Jul, Anxiety F41.9 [facility] [place] [address] [id number] Jul, [facility] La[facility] [id number] [id number] Jul, PTSD (post-traumatic stress disorder) F43.10 [facility] [id number] [id number] Jul, Diabetes type 2, uncontrolled E11.65 ; Left foot pain M79.672 ; Toe pain, right M79.674 ; Low back pain M54.5 ; Other chronic pain G89.29 ; Pain in right knee M25.561 ; PTSD (post-traumatic stress disorder) F43.10 and Anxiety F41.9 [facility] [id number], [place] [id number] Jul, [facility] [id number] [place] [address] [id number] Jun, PTSD (post-traumatic stress disorder) F43.10 [facility] [id number], [place] [id number] Jun, [facility] [place] [address], [place] [address]- [address] Jun, [facility] [id number], [place] [id number] Jun, PTSD (post-traumatic stress disorder) F43.10 [facility] [id number], [place] [id number] Jun, [facility] [id number], [place] [id number] Jun, Cellulitis of right lower extremity L03.115 ; Other chronic pain G89.29 ; Pain in right knee M25.561 ; Pain in left knee M25.562 and Anxiety about health F41.8 [facility] [id number], [place] [id number] May, Anxiety F41.9 [facility] [id number] [place] [address] [id number] May, PTSD (post-traumatic stress disorder) F43.10 [facility] [id number] [place] [address] [id number] May, Diabetes type 2, uncontrolled E11.65 ; Diabetic polyneuropathy associated with type 2 diabetes mellitus E11.42 ; Gastroparesis due to secondary diabetes E13.43 ; Anxiety F41.9 ; Other chronic pain G89.29 ; Pain in right knee M25.561 ; Pain in left knee M25.562 ; Acquired hypothyroidism E03.9 and Chronic constipation K59.00 [facility] [place] [address] [address]- 1407 May, [facility] [address] [id number] May, [facility] [address] [id number] Apr, [facility] [address] [id number] Apr, [facility] [place] [address] 361506- 3674 Apr, [facility] [address] [id number] Apr, [facility] [place] [address] [address]- [address] Apr, [facility] [id number] [place] [address] [id number] Apr, Diabetes type 2, uncontrolled E11.65 ; Diabetic polyneuropathy associated with type 2 diabetes mellitus E11.42 ; Gastroparesis due to secondary diabetes E13.43 and Encounter for immunization Z23 [facility] [place] [place] [id number] [place] [address] [id number] Apr, Gastroparesis K31.84 and Diabetes type 2, controlled E11.9 [facility] [place] [id number] [place] [address] [id number] Mar, Diabetes type 2, controlled E11.9 ; Chronic constipation K59.00 and Gastroparesis K31.84 [facility] [address] [id number] [place] [id number] Mar, [facility] [address] [id number] [place] [id number] Mar, Diabetes type 2, controlled E11.9 [facility] [address] [id number] [place] [id number] Mar, [facility] [address] [id number] [place] [id number] Feb, [facility] [address] [id number] [place] [id number] Feb, [facility] [address] [id number] [place] [id number] Feb, Diabetes type 2, controlled E11.9 [facility] [address] [id number] [place] [id number] Feb, [facility] [address] [id number] [place] [id number] Jan, [facility] [address] [id number] [place] [id number] Jan, [facility] [address] [id number] [place] [id number] Jan, Diabetes type 2, controlled E11.9 [facility] [address] [id number] [place] [id number] December, [facility] [address] [id number] [place] [id number] December, Diabetes type 2, uncontrolled E11.65 and Diabetes type 2, controlled E11.9 [facility] [address] [id number] [place] [id number] December, [facility] [address] [id number] [place] [id number] Nov, Wound of toenail, subsequent encounter S91.209D and Plantar fascia syndrome M72.2 [facility] [address] [id number] [place] [id number] Nov, Ingrown toenail L60.0 [facility] [id number] [place] [address] [id number] Nov, Wound of toenail, subsequent encounter S91.[id number] [place] [address] [id number] Nov, Tinea unguium B35.1 and Ingrowing nail L60.0 [address] [id number] Nov, Ingrown toenail L60.[address] [id number] Nov, Cellulitis of right lower extremity L03.115 [address] [place] [address] [id number] Nov, Ingrown toenail L60.0 and Diabetes type 2, controlled E11.[address] [id number] Oct, [address] [id number] Oct, Anxiety F41.9 [address] [place] [address] [id number] Sep, [address] [id number] Sep, Elevated white blood cell count D72.829 and Multiple joint pain M25.50 [address] [place] [address] [id number] Sep, Diabetes type 2, uncontrolled E11.65 ; Onychomycosis B35.1 ; Skin candidiasis B37.2 and Anxiety F41.9 [address] [place] [address] [id number] Aug, [address] [place] [address] [id number] Aug, [address] [id number] Jul, Diabetes type 2, uncontrolled E11.[address] [id number] Jul, [address] [id number] Jul, Diabetes type 2, uncontrolled E11.65 [facility] [place] [address] [id number] [id number] Jul, [facility] [id number] Jun, [facility] [id number] [phone]- [address]256 Jun, [facility] [address] [place] [address] [id number] Jun, Diabetes type 2, uncontrolled E11.65 ; Chronic constipation K59.00 and Anxiety F41.9 [facility] [address] [id number] [id number] Jun, Plantar fascia syndrome M72.2 [address]005[address]100[place], [place] [id number] May, [address] [place] [address] [id number] May, [address]100[place], [place] [id number] May, Encounter for immunization Z23 ; Diabetes type 2, uncontrolled E11.65 and Depression with anxiety F41.8 [address]00565100[place], [place] [id number] Apr, Chronic constipation 564.00 ; Insomnia, unspecified 780.52 ; Diabetes mellitus, type 2 250.00 ; PTSD (post-traumatic stress disorder) 309.81 and Anxiety and depression 300.[address] [facility] [id number] [id number] Apr, [id number] [id number] Apr, Anxiety and depression 300.00 and PTSD (post-traumatic stress disorder) 309.81 [id number] [id number] Mar, [id number] [id number] Mar, Follow up V67.9 ; Social anxiety disorder 300.23 and Acid reflux 530.81 [facility] [id number] [place] [address] [id number] Feb, [facility] [id number] [place] [address] [id number] Feb, [facility] [id number] [place] [address] [id number] Feb, [facility] [id number] [place] [address] [id number] Feb, [facility] [place] [id number] [place] [address] 72286- [phone] Feb, [facility] [id number] [place] [address] [id number] Feb, Unspecified hereditary and idiopathic peripheral neuropathy 356.9 ; Heartburn 787.1 ; Uncontrolled type 2 diabetes with neuropathy 250.62 ; Otitis externa 380.10 and HEP B (ADULT) DX V05.3 [facility] [id number] [place] [address] [id number] Jan, [facility] [address] [place] [address] [id number] December, [facility] [place] [id number] [place] [address] 84152- 6816 Nov, [facility] [place] [id number] [place] [address] 06395- 2520 Nov, [facility] [place] [id number] [place] [address] 71843- [phone] Oct, [facility] [place] [id number] [place] [address] 21970- 6171 Oct, [facility] [id number] [place] [address] [id number] Oct, [facility] [place] [id number] [place] [address] 49789- 7766 Oct, [facility] [place] [id number] [place] [address] 29472- 1831 Oct, [facility] [address] [id number], [place] [address]- 1176 Oct, [facility] [address] [facility] [id number] [place] [id number] Oct, [facility] [address] [facility] [id number], [place] [address]- 9449 Oct, [facility] [address] [facility] [place] [id number] [place] [id number] Oct, [facility] [address] [facility] [id number], [place] [address]- 7537 Oct, [facility] [address] [id number] [place] [id number] Oct, [facility] [address] [facility] [place] [id number] [place] [id number] Oct, [facility] [address]100[place], [place] [address] Oct, [facility] [address] [facility] [id number], [place] [address] Oct, [facility] [address] [facility] [place] [id number] [id number] Oct, [facility] [address] [facility] [id number][place] [id number] Oct, [facility] [address] [id number], [place] [address] Sep, [facility] [address] [facility] [id number] [id number] Sep, [facility] [address] [facility] [place] [id number][place] [id number] Sep, [facility] [address] [facility] [id number][place] [id number] Sep, [facility] [address] [facility] [id number][place] [id number] Sep, [facility] [address] [facility] [id number], [place] [address] Sep, [facility] [address] [id number], [place] [address] Aug, [facility] [address] [facility] [place] [id number][place] [id number] Aug, [facility] [place] [facility] [address] [facility] [id number], [place] [address] Aug, [facility] [place] [facility] [address] [facility] [id number], [place] [address] Aug, [facility] [address] [facility] [place] [id number][place] [id number] Aug, [facility] [place] [facility] [address] [facility] [id number], [place] [address] Aug, [facility] [place] [facility] [address] [id number], [place] [address] Aug, [facility] [place] [facility] [address] [facility] [id number], [place] [address] Aug, [facility] [address] [id number][place] [id number] Aug, [facility] [address] [facility] [place] [id number][place] [id number] Aug, [facility] [place] [facility] [address] [facility] [id number], [place] [address] Aug, [facility] [place] [facility] [address] [facility] [id number], [place] [address] Aug, [facility] [address] [facility] [place] [id number], [place] [id number] Jul, [facility] [place] [facility] [address] [facility] [id number], [place] [address] Jul, [facility] [address] [facility] [place] [id number] [place] [id number] Jun, [facility] [place] [facility] [address] [facility] [id number], [place] [address] Jun, [facility] [address] [id number][place] [id number] Jun, [facility] [place] [facility] [address] [facility] [id number], [place] [address] 1674 Jun, [facility] [address] [facility] [place] [id number][place] [id number] Jun, [facility] [place] [facility] [address] [facility] [id number], [place] [address] Jun, [facility] [place] [facility] [address] [facility] [id number] [place] [id number] [address] May, [facility] [place] [facility] [address] [facility] [id number], [place] [address] May, [facility] [address] [facility] [place] [id number], [place] [id number] May, [facility] [place] [facility] [id number], [place] [address] May, [facility] [address] [facility] [id number], [place] [id number] Apr, [facility] [place] [facility] [address] [facility] [id number], [place] [address] Apr, [facility] [address] [facility] [place] [id number], [place] [id number] Apr, [facility] [address] [facility] [place] [id number], [place] [id number] Apr, [facility] [place] [facility] [address] [facility] [id number], [place] [address] Apr, [facility] [place] [facility] [address] [facility] [id number], [place] [address]703[place] 4905 Apr, [facility] [address] [facility] [place] [id number], [place] [id number] Apr, [facility] [place] [facility] [address] [facility] [id number], [place] [address]60[place] [address] Apr, [facility] [address] [facility] [place] [id number], [place] [id number] Apr, [facility] [place] [facility] [address] [id number] [place] [address] Apr, [facility] [address] [id number] [place] [id number] Feb, [facility] [place] [facility] [address] [facility] [id number] [place] [address] Feb, [facility] [address] [id number] [place] [id number] Feb, [facility] [place] [facility] [address] [id number] [place] [address] 1666 Feb, [facility] [place] [facility] [address] [facility] [id number] [place] [address]- 1785 Jan, [facility] [place] [facility] [address] [facility] [id number] [place] [address]- 9678 Jan, [facility] [place] [facility] [address] [facility] [id number] [place] [address] Jan, [facility] [address] [id number], [place] [id number] Jan, [facility] [place] [facility] [address] [facility] [id number] [place] [address] Jan, [facility] [place] [facility] [address] [facility] [id number], [place] [address]- [address]79 Jan, [facility] [address] [id number], [place] [id number] Jan, [facility] [place] [facility] [address] [id number], [place] [address] Jan, [facility] [address] [id number], [place] [id number] December, [facility] [place] [facility] [address] [facility] [id number], [place] [address] December, [facility] [address] [id number], [place] [id number] December, [facility] [address] [id number] [place] [id number] December, [facility] [address] [facility] [id number] [place] [id number] December, [facility] [place] [facility] [address] [facility] [id number] [place] [address]- [address]46 December, [facility] [place] [facility] [address] [facility] [id number] [place] [address]- 2546 December, [facility] [place] [facility] [address] [facility] [id number] [place] [address]- 2546 December, [facility] [address] [facility] [id number] [place] [id number] Nov, [facility] [place] [facility] [address] [facility] [id number] [place] [address]- 2546 Nov, [facility] [address] [facility] [id number] [place] [id number] Oct, [facility] [place] [facility] [address] [facility] [id number], [place] [address]- 2546 Oct, [facility] [place] [facility] [address] [facility] [id number] [place] [address]- 3676 Sep, [facility] [place] [facility] [address] [facility] [id number], [place] [address]- 4696 Sep, [facility] [address] [facility] [id number], [place] [id number] Aug, [facility] [address] [facility] [id number], [place] [id number] Aug, [facility] [place] [facility] [address] [facility] [id number], [place] [address]- 2546 Aug, [facility] [place] [facility] [address] [facility] [id number] [place] [address]- 2546 Aug, [facility] [address] [facility] [id number], [place] [id number] Jul, [facility] [place] [facility] [address] [facility] [id number], [place] [address]- [address]306 Jul, [facility] [address] [id number] [place] [id number] Jul, [facility] [address] [facility] [id number], [place] [address]- [address]38 Jul, [facility] [address] [id number] [place] [id number] Jun, [facility] [address] [facility] [id number], [place] [address]- 4169 Jun, [facility] [address] [id number] [place] [id number] Apr, [facility] [address] [id number] [place] [id number] Mar, [facility] [address] [id number] [place] [id number] Mar, [facility] [address] [id number] [place] [id number] Mar, [facility] [address] [id number] [place] [id number] Mar, [facility] [address] [id number] [place] [id number] Feb, [facility] [address] [id number] [place] [id number] Jan, [facility] [address] [id number] [place] [id number] Jan, [facility] [address] [id number] [place] [id number] Jan, [facility] [address] [id number] [place] [id number] Jan, [facility] [address] [id number] [place] [id number] December, [facility] [address] [id number] [place] [id number] December, [facility] [address] [id number] [place] [id number] December, [facility] [address] [facility] [id number], [place] [address]- 9796 Jul, [facility] [address] [id number] [place] [id number] Jul, [facility] [address] [id number] [place] [id number] Jul, [facility] [address] [id number] [place] [id number] Jul, [facility] [address] [id number] [place] [id number] Jul, [facility] [place] [facility] [address] [id number], [place] [address]- 2724 Jul, [facility] [place] [facility] [address] [facility] [id number], [place] [address]- 4131 Jul, [facility] [place] [facility] [address] [facility] [id number], [place] [address]- 7270 Jul, [facility] [address] [facility] [id number] [place] [id number] Jun, [facility] [place] [facility] [address] [facility] [id number], [place] [address]- 6649 Jun, [facility] [place] [facility] [address] [facility] [id number], [place] [address]- 0818 Jul, [facility] [place] [facility] [address] [facility] [id number], [place] [address]- 3813 Jul, [facility] [place] [facility] [address] [facility] [id number], [place] [address]- 3079 Jul, [facility] [place] [facility] [address] [facility] [id number], [place] [address]- 2375 Jul, [facility] [place] [facility] [address] [facility] [id number], [place] [address]- 6383 Jun, [facility] [place] [facility] [address] [facility] [id number], [place] [address]- 8914 Jun, [facility] [place] [facility] [address] [facility] [id number], [place] 427894- 2592 Jun, [facility] [place] [facility] [address] [facility] [id number] [place] [address]- 4977 04 Jun, 2010 [facility] [place] [facility] [address] [id number] [place] [address]- 4829 04 Jun, 2010 [facility] [place] [facility] [address] [id number] [place] [address]- 2339 27 May, 2010 [facility] [place] [facility] [address] [id number] [place] [address]- 9926 19 May, 2010 [facility] [place] [facility] [address] [id number] [place] [address]- 4907 13 May, 2010 [facility] [place] [facility] [address] [id number] [place] [address], [place] [address]- 7376 13 May, 2010 [facility] [place] [facility] [address] [id number] [place] [address]- 5449 16 Nov, 2009 [facility] [place] [facility] [address] [id number] [place] [address]- 7099 28 Jul, 2009 [facility] [place] [facility] [address] [id number] [place] [address]- 9178 25 Jun, 2009 [facility] [place] [facility] [address] [id number] [place] [address]- 3292 09 Jun, 2009 [facility] [place] [facility] [address] [facility] [id number] [place] [address]- 9880 29 May, 2009 [facility] [place] [facility] [address] [id number] [place] [address]- 6555 28 May, 2009 [facility] [place] [facility] [address] [id number], [place] [address]- 2545 26 May, 2009 [facility] [place] [facility] [address] [id number] [place] [address]- 0320 14 May, 2009 [facility] [place] [facility] [address] [id number], [place] [address]- 6099 14 May, 2009 [facility] [place] [facility] [address] [id number], [place] [address]- 4525 12 May, 2009 [facility] [place] [address] [facility] [id number], [place] [id number]- [address]167 Apr, [facility] [place] [address] [facility] [id number], [place] [address]- 4932 Jan, IMMUNIZATIONS No Known Immunizations SOCIAL HISTORY Never Assessed REASON FOR VISIT Well Woman Exam [facility] PLAN OF CARE Activity Details Follow Up 3 Weeks Reason:urinary inconttinence Pending Test PAP REFLEX TO HPV IF ASCUS VITAL SIGNS Height 62 in 2017-03-29 Weight 248.2 lbs 2017-03-29 Temperature 98.3 degrees Fahrenheit 2017-03-29 Heart Rate 86 bpm 2017-03-29 Respiratory Rate 18 2017-03-29 BMI 45.39 kg/m2 2017-03-29 Blood pressure systolic 110 mmHg 2017-03-29 Blood pressure diastolic 60 mmHg 2017-03-29 MEDICATIONS Medication Instructions Dosage Frequency Start Date End Date Duration Status Metformin HCl 850 MG Orally twice a day 1 tablet with a meal 12h Jul, Active Prevacid 30 MG Orally Once a day 1 capsule 24h Active Escitalopram Oxalate 20 mg Orally Once a day 1 tablet 24h Active Singulair 10 mg Orally Once a day 1 tablet in the evening 24h December, 0 days Active Lisinopril 2.5 MG TAKE ONE (1) TABLET BY MOUTH DAILY... 90 Active Pen [place] 29G X 12MM subcutaneous 4 times a day Inject 6h Active Vitamin D-3 1000 UNIT Orally Once a day 1 capsule 24h Active Promethazine HCl 25 MG Orally 3 times a day 1 tablet as needed 8h Mar, Mar, 0 days Active Trulicity 1.5 MG/0.5ML Subcutaneous once weekly 0.5 ml Active Hydrochlorothiazide 12.5 MG TAKE ONE (1) CAPSULE BY MOUTH ONCE DAILY... Active Detrol LA 4 MG Orally Once a day 1 capsule 24h Mar, Mar, 0 days Active Zofran 8 MG Orally Once a day as needed for nausea 1 tablet Active Linzess 145 MCG Orally Once a day (DX: chronic constipation/abd pain) 1 capsule May, Active TRUEplus Lancets 28G - USE TO CHECK BLOOD SUGAR FOUR (4) TIMES DAILY... Active Fluticasone Propionate 50 MCG/ACT Nasally Once a day 1 spray in each nostril 24h Active Mobic 7.5 MG Orally twice a day 1 tablet 12h 09 Jun, 2016 Active BusPIRone HCl 10 MG TAKE ONE (1) TABLET BY MOUTH TWICE DAILY... Active Sucralfate 1 GM Orally twice per day 1 tablet on an empty stomach and crush and dissolve in water 30mins before taking 0 Active Lyrica 150 MG Orally 3 times a day 1 capsule 8h 0 days Active Glucometer 1 glucometer as directed Jan, Active Voltaren 1 % Transdermal 2 times a day as directed 12h 0 Active Oxybutynin Chloride 5 mg Orally Twice a day-must increase water intake 1 tablet Mar, Mar, 0 days Active Tramadol HCl 50 mg Orally every 6 hrs 1 tablet as needed 6h 0 Active Blood Glucose Test Strip ... subcutaneously 4 times a day as directed 6h Jan, Active Clonazepam 1 MG Orally Once a day 1.5 tabs in pm 24h 0 Active Levothyroxine Sodium 25 MCG Orally Once a day 1 tablet 24h Active HydrOXYzine HCl 50 MG Orally 3 times a day 1/2 in am 1/2 tab noon and 1 tablet at bedtime 8h Active RESULTS No Results PROCEDURES Procedure Date Ordered Result Body Site SPECIMEN HANDLING Mar 29, 2017 No Charge Mar 29, 2017 LAB NOT BILLED BY [facility] Mar 29, 2017 Bacterial Vaginosis In House Mar 29, 2017 INSTRUCTIONS MEDICATIONS ADMINISTERED No Known Medications [...]
--- OUTSIDE RECORDS SUMMARY | 2018-02-13 11:05 | XMS REPORT ---
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 Name Role Phone DYLLAN GAMING Unavailable PROBLEMS Type Condition ICD9-CM Code HFY30-KG Code Onset Dates Condition Status SNOMED Code Problem Gastric pain R10.9 Active 131881207 Problem GERD without esophagitis K21.9 Active 964998751 Problem Gastroparesis K31.84 Active 208540149 Problem Leukocytosis, unspecified type D72.829 Active 847329667 Problem Chronic constipation K59.00 Active 917285557 Problem Mixed hyperlipidemia E78.2 Active 735770747 Problem Mixed stress and urge urinary incontinence N39.46 Active 229351104 Problem Mendez''s esophagus with dysplasia K22.719 Active 745761092 Problem Sleep apnea in adult G47.30 Active 24196677 Problem Current moderate episode of major depressive disorder without prior episode F32.1 Active 49892547 Problem Diabetic polyneuropathy associated with type 2 diabetes mellitus E11.42 Active 74925411 Problem Other chronic pain G89.29 Active 10312174 Problem Anxiety F41.9 Active 98966206 Problem Diabetes type 2, controlled E11.9 Active 96552629 Problem Anxiety about health F41.8 Active 001024444 Problem Low back pain M54.5 Active 911222658 Problem Acquired hypothyroidism E03.9 Active 901597728 Problem Left foot pain M79.672 Active 84097669 Problem PTSD (post-traumatic stress disorder) F43.10 Active 87091169 Problem Irritable bowel syndrome with both constipation and diarrhea K58.2 Active 02171460 ALLERGIES No Information ENCOUNTERS Encounter Location Date Diagnosis [facility] [address] [facility] [id number] [place] [address] Mar, [facility] [id number] [place] [address] [id number] Jan, BMI 40.0-44.9, adult Z68.41 ; Right foot pain M79.671 ; Irritable bowel syndrome with both constipation and diarrhea K58.2 ; Diabetic polyneuropathy associated with type 2 diabetes mellitus E11.42 ; Other chronic pain G89.29 ; Acquired hypothyroidism E03.9 and Leukocytosis, unspecified type D72.829 [address] [id number] December, Diabetes type 2, controlled E11.9 ; [...] ; Gastroparesis K31.84 and Acquired hypothyroidism E03.9 [address]100[place] [id number] December, Diabetic polyneuropathy associated with type 2 diabetes mellitus E11.42 ; Anxiety F41.9 and Other chronic pain G89.29 [facility] [address] [id number] [address] December, Onychomycosis B35.1 and Contusion of left foot, initial encounter S90.32XA [address] [id number] [id number] Nov, Diabetic polyneuropathy associated with type 2 diabetes mellitus E11.42 ; Anxiety F41.9 and Other chronic pain G89.29 [address] [place] [address] [id number] Oct, Other chronic pain G89.29 ; Anxiety F41.9 and Diabetic polyneuropathy associated with type 2 diabetes mellitus E11.42 [address] [id number] Oct, Neutrophilia D72.9 [address]35[address] [id number] Sep, Neutrophilia D72.9 ; Lymphocytosis D72.820 and Leukocytosis, unspecified type D72.829 [address] [id number] Sep, Leukocytosis, unspecified type D72.829 ; Vaginal discharge N89.8 ; Cramp of toe R25.2 ; Sleep apnea in adult G47.30 ; Diabetic polyneuropathy associated with type 2 diabetes mellitus E11.42 ; Anxiety F41.9 ; Other chronic pain G89.29 ; Acquired hypothyroidism E03.9 ; Gastroparesis K31.84 ; PTSD (post- traumatic stress disorder) F43.10 ; Sinus congestion R09.81 and BMI 40.0-44.9, adult Z68.41 [address] [place] [address] [id number] Sep, Syncope, unspecified syncope type R55 ; [...] R09.89 and Swelling of lower extremity M79.89 [address] [place] [address] [id number] Aug, Carbuncle and furuncle of buttock L02.33 ; Radicular pain of lower extremity M54.10 ; Mixed stress and urge urinary incontinence N39.46 ; Nail ingrowing L60.0 and BMI 40.0-44.9, adult Z68.41 [facility] [address]005[address] [address] Aug, [address] [place] [address] [id number] Aug, Diabetic polyneuropathy associated with type 2 diabetes mellitus E11.42 ; Anxiety F41.9 and Other chronic pain G89.29 [address] [place] [address] [id number] Jul, [facility] [address] [place] [address] Jul, [address] [id number] Jul, Diabetic polyneuropathy associated with type 2 diabetes mellitus E11.42 ; Anxiety F41.9 and Other chronic pain G89.29 [address] [place] [address] [id number] Jul, BMI 40.0-44.9, adult Z68.41 ; Diabetes type 2, controlled E11.9 ; Sinus congestion R09.81 ; Sore throat J02.9 ; Gastroparesis K31.84 ; Mendez''s esophagus with dysplasia K22.719 ; Lumbago with sciatica, right side M54.41 and Other chronic pain G89.29 [facility] [address] [place] [address] 2546 Jul, [address] [place] [address] [id number] Jun, Acute non-recurrent frontal sinusitis J01.10 ; Acute diffuse otitis externa of both ears H60.313 and BMI 40.0-44.9, adult Z68.41 [address] [place] [address] [id number] Jun, Diabetic polyneuropathy associated with type 2 diabetes mellitus E11.42 ; Other chronic pain G89.29 and Anxiety F41.9 [address] [place] [address] [id number] Jun, [address] [place] [address] [id number] Apr, Anxiety F41.9 ; Gastroparesis K31.84 ; Other chronic pain G89.29 ; PTSD ( post-traumatic stress disorder) F43.10 ; Acquired hypothyroidism E03.9 ; Diabetic polyneuropathy associated with type 2 diabetes mellitus E11.42 ; Chronic seasonal allergic rhinitis, unspecified trigger J30.2 ; Urge incontinence of urine N39.41 ; Acute diffuse otitis externa of right ear H60.311 and BMI 45.0-49.9, adult Z68.42 [facility] [address] [place] [address] [id number] 14 Apr, 2017 Chronic seasonal allergic rhinitis, unspecified trigger J30.2 and Encounter for immunization Z23 [facility] [id number] [place] [address] [id number] 11 Apr, 2017 Diabetic polyneuropathy associated with type 2 diabetes mellitus E11.42 ; Acute pain of right knee M25.561 and Post traumatic stress disorder (PTSD) F43.10 [facility] [address]005[address] [address] Mar, [address] [place] [address] [id number] Mar, Well woman exam with routine gynecological exam Z01.419 ; Stress incontinence N39.3 ; High risk sexual behavior Z72.51 ; Screening breast examination Z12.31 and Nausea R11.0 [place] [place] [address] [id number] Mar, Other chronic pain G89.29 ; Bladder leak R32 ; Sore throat J02.9 ; Post traumatic stress disorder (PTSD) F43.10 and Acute pain of right knee M25.561 [address] [place] [address] [id number] Feb, [address] [place] [address] [id number] Feb, Acquired hypothyroidism E03.9 ; Diabetic polyneuropathy associated with type 2 diabetes mellitus E11.42 ; Other chronic pain G89.29 ; Diarrhea, unspecified type R19.7 ; GERD without esophagitis K21.9 ; Post traumatic stress disorder (PTSD) F43.10 ; Intentional self-harm by blunt object, subsequent encounter X79.XXXD and Acute pain of right knee M25.561 [address] [id number] [id number] Feb, Acquired hypothyroidism E03.9 [facility] [address] [id number] [id number] Jan, Acquired hypothyroidism E03.9 ; Diabetic polyneuropathy associated with type 2 diabetes mellitus E11.42 ; Other chronic pain G89.29 ; Diarrhea, unspecified type R19.7 ; GERD without esophagitis K21.9 ; Post traumatic stress disorder (PTSD) F43.10 ; Intentional self-harm by blunt object, subsequent encounter X79.XXXD and Acute pain of right knee M25.561 [facility] [address] [place] [address] [id number] Jan, Acquired hypothyroidism E03.9 ; Diabetic polyneuropathy associated with type 2 diabetes mellitus E11.42 ; Other chronic pain G89.29 ; Diarrhea, unspecified type R19.7 ; GERD without esophagitis K21.9 ; Post traumatic stress disorder (PTSD) F43.10 and Intentional self-harm by blunt object, initial encounter X79.XXXA [facility] [address]00565100[place] [id number] Jan, [address] [place] [address] [id number] December, PTSD (post-traumatic stress disorder) F43.10 ; Gastroparesis due to secondary diabetes E13.43 ; Chronic diarrhea K52.9 ; Non-seasonal allergic rhinitis due to pollen J30.1 and Constipation by delayed colonic transit K59.01 [facility] [address] [facility] [id number] [address] December, [address] [id number] [id number] December, Diabetic polyneuropathy associated with type 2 diabetes mellitus E11.42 [address] [place] [address] [id number] December, Diabetes type 2, uncontrolled E11.65 ; GERD without esophagitis K21.9 and PTSD (post-traumatic stress disorder) F43.10 [address] [place] [address] [id number] Nov, Anxiety F41.9 [facility] [place] [id number] [id number] Nov, Diabetic polyneuropathy associated with type 2 diabetes mellitus E11.42 [facility] [place] [id number], [place] [id number] Oct, Anxiety F41.9 [facility] [place] [id number], [place] [id number] Sep, Gastroparesis due to secondary diabetes E13.43 and Anxiety F41.9 [facility] [address]005[address] [address] Aug, [facility] [place] [id number] [place] [address] [id number] Aug, Chronic constipation K59.09 and Diarrhea, unspecified type R19.7 [facility] [place] [id number], [place] [id number] Aug, Diabetic polyneuropathy associated with type 2 diabetes mellitus E11.42 [facility] [place] [id number], [place] [id number] Aug, Gastroparesis K31.84 ; Diabetes type 2, uncontrolled E11.65 ; Gastric pain R10.9 ; Irritable bowel syndrome with both constipation and diarrhea K58.2 and Chronic constipation K59.00 [facility] [place] [id number], [place] [id number] Aug, Dark stools R19.5 [facility] [place] [id number], [place] [id number] Aug, Gastroparesis K31.84 and Chronic constipation K59.00 [facility] [place] [id number], [place] [id number] 09 Aug, 2016 Dark stools R19.5 ; Diabetes type 2, uncontrolled E11.65 ; Gastroparesis due to secondary diabetes E13.43 and Constipation by delayed colonic transit K59.01 [facility] [place] [id number], [place] [id number] Aug, Anxiety F41.9 [facility] [place] [id number], [place] [id number] Aug, Nausea R11.0 ; Left foot pain M79.672 ; Pain in right knee M25.561 ; Low back pain M54.5 and Other chronic pain G89.29 [facility] [address]005[address] [address] Jul, [facility] [id number], [place] [id number] Jul, [id number] [place] [address] Jul, PTSD (post-traumatic stress disorder) F43.10 [facility] [address]00565100[place], [place] [id number] Jul, Anxiety F41.9 [facility] [address]005[address]100[place] [address] Jul, [address]100[place] [id number] Jul, PTSD (post-traumatic stress disorder) F43.10 [facility] [id number], [place] [id number] Jul, Diabetes type 2, uncontrolled E11.65 ; Left foot pain M79.672 ; Toe pain, right M79.674 ; Low back pain M54.5 ; Other chronic pain G89.29 ; Pain in right knee M25.561 ; PTSD (post-traumatic stress disorder) F43.10 and Anxiety F41.9 [facility] [id number], [place] [id number] Jul, [facility] [address] [id number], [place] [id number] Jun, PTSD (post-traumatic stress disorder) F43.10 [facility] [address]00565100[place], [place] [id number] Jun, [facility] [address] [id number] [address] Jun, [facility] [id number] [place] [address] [id number] Jun, PTSD (post-traumatic stress disorder) F43.10 [facility] [id number] [place] [address] [id number] Jun, [address] [place] [address] [id number] Jun, Cellulitis of right lower extremity L03.115 ; Other chronic pain G89.29 ; Pain in right knee M25.561 ; Pain in left knee M25.562 and Anxiety about health F41.8 [facility] [id number] [place] [address] [id number] May, Anxiety F41.[address] [id number] May, PTSD (post-traumatic stress disorder) F43.10 [address] [place] [address] [id number] May, Diabetes type 2, uncontrolled E11.65 ; Diabetic polyneuropathy associated with type 2 diabetes mellitus E11.42 ; Gastroparesis due to secondary diabetes E13.43 ; Anxiety F41.9 ; Other chronic pain G89.29 ; Pain in right knee M25.561 ; Pain in left knee M25.562 ; Acquired hypothyroidism E03.9 and Chronic constipation K59.00 [facility] [address] [id number]- [address] May, [address] [place] [address] [id number] May, [address] [place] [address] [id number] Apr, [address] [place] [address] [id number] Apr, [facility] [address] [address] Apr, [facility] [id number] [place] [address] [id number] Apr, [facility] [address] [address] Apr, [facility] [place] [address] [id number] [place] [id number] Apr, Diabetes type 2, uncontrolled E11.65 ; Diabetic polyneuropathy associated with type 2 diabetes mellitus E11.42 ; Gastroparesis due to secondary diabetes E13.43 and Encounter for immunization Z23 [facility] [place] [address] [id number] [place] [id number] Apr, Gastroparesis K31.84 and Diabetes type 2, controlled E11.9 [facility] [place] [address] [id number] [place] [id number] Mar, Diabetes type 2, controlled E11.9 ; Chronic constipation K59.00 and Gastroparesis K31.84 [facility] [place] [address] [id number] [place] [id number] Mar, [facility] [place] [address] [id number] [place] [id number] Mar, Diabetes type 2, controlled E11.9 [facility] [place] [address] [id number] [place] [id number] Mar, [facility] [place] [address] [id number] [place] [id number] Feb, [facility] [place] [address] [id number] [place] [id number] Feb, [facility] [place] [address] [id number] [place] [id number] Feb, Diabetes type 2, controlled E11.9 [facility] [place] [address] [id number] [place] [id number] Feb, [facility] [place] [address] [id number] [place] [id number] Jan, [facility] [place] [address] [id number] [place] [id number] Jan, [facility] [place] [address] [id number] [place] [id number] Jan, Diabetes type 2, controlled E11.9 [facility] [place] [address] [id number] [place] [id number] December, [facility] [place] [id number] [place] [address] [id number] December, Diabetes type 2, uncontrolled E11.65 and Diabetes type 2, controlled E11.9 [place] [place] [place] [address] [id number] December, [facility] [address] [id number] Nov, Wound of toenail, subsequent encounter S91.209D and Plantar fascia syndrome M72.[address] [id number] Nov, Ingrown toenail L60.0 [facility] [address] [id number] Nov, Wound of toenail, subsequent encounter S91.209D [address] [id number] Nov, Tinea unguium B35.1 and Ingrowing nail L60.[address] [id number] Nov, Ingrown toenail L60.[address] [id number] Nov, Cellulitis of right lower extremity L03.[address] [id number] Nov, Ingrown toenail L60.0 and Diabetes type 2, controlled E11.9 [place] [place] [place] [address] [id number] Oct, [address] [id number] Oct, Anxiety F41.[address] [id number] Sep, [address] [id number] Sep, Elevated white blood cell count D72.829 and Multiple joint pain M25.[address] [id number] Sep, Diabetes type 2, uncontrolled E11.65 ; Onychomycosis B35.1 ; Skin candidiasis B37.2 and Anxiety F41.9 [facility] [place] [id number] [place] [address] [id number] Aug, [facility] [place] [id number] [place] [address] [id number] Aug, [facility] [place] [address] [place] [address] [id number] Jul, Diabetes type 2, uncontrolled E11.65 [facility] [place] [id number] [place] [address] [id number] Jul, [facility] [place] [id number] [place] [address] [id number] Jul, Diabetes type 2, uncontrolled E11.65 [facility] [place] [id number] [place] [address] [id number] Jul, [facility] [address] [place] [address] [id number] Jun, [facility] [address]00565100[place] [address]- [address] Jun, [facility] [address] [place] [address] [id number] Jun, Diabetes type 2, uncontrolled E11.65 ; Chronic constipation K59.00 and Anxiety F41.9 [facility] [address] [id number] [id number] Jun, Plantar fascia syndrome M72.2 [facility] [address]00565100[place], [place] [id number] May, [facility] [id number] [place] [address] [id number] May, [facility] [address] [place] [address] [id number] May, Encounter for immunization Z23 ; Diabetes type 2, uncontrolled E11.65 and Depression with anxiety F41.8 [facility] [address] [place] [address] [id number] Apr, Chronic constipation 564.00 ; Insomnia, unspecified 780.52 ; Diabetes mellitus, type 2 250.00 ; PTSD (post-traumatic stress disorder) 309.81 and Anxiety and depression 300.00 [facility] [id number], [place] [id number] Apr, [facility] [id number] [place] [address] [id number] Apr, Anxiety and depression 300.00 and PTSD (post-traumatic stress disorder) 309.81 [facility] [id number] [place] [address] [id number] Mar, [place] [place] [place] [address] [id number] Mar, Follow up V67.9 ; Social anxiety disorder 300.23 and Acid reflux 530.81 [facility] [id number] [place] [address] [id number] Feb, [place] [place] [place] [address] [id number] Feb, [facility] [id number] [place] [address] [id number] Feb, [address] [place] [address] [id number] Feb, [facility] [address] [address] Feb, [place] [place] [place] [address] [id number] Feb, Unspecified hereditary and idiopathic peripheral neuropathy 356.9 ; Heartburn 787.1 ; Uncontrolled type 2 diabetes with neuropathy 250.62 ; Otitis externa 380.10 and HEP B (ADULT) DX V05.3 [place] [address] [place] [address] [id number] Jan, [address] [id number] December, [facility] [address] [id number]- 2649 Nov, [facility] [address] 58036693- 8695 Nov, [facility] [place] [facility] [address] [id number] [place] [address]- 7[address] Oct, [facility] [place] [facility] [address] [id number] [place] [address]- 25[address] Oct, [facility] [place] [address] [facility] [id number], [place] [id number] Oct, [facility] [place] [facility] [address] [facility] [id number] [address] 2546 Oct, [facility] [place] [facility] [address] [facility] [id number] [place] [address]- 4255 Oct, [facility] [place] [facility] [address] [facility] [id number] [place] [address]- 2106 Oct, [facility] [place] [address] [facility] [id number], [place] [id number] Oct, [facility] [place] [facility] [address] [facility] [id number] [address]- 9[address] Oct, [facility] [place] [address] [facility] [id number], [place] [id number] Oct, [facility] [place] [facility] [address] [facility] [id number] [place] [address]- 5226 Oct, [facility] [place] [address] [id number], [place] [id number] Oct, [facility] [place] [address] [id number], [place] [id number] Oct, [facility] [place] [facility] [address] [facility] [id number] [place] [address]- 2546 Oct, [facility] [place] [facility] [address] [facility] [id number] [place] [address]- 2546 Oct, [facility] [place] [address] [facility] [id number], [place] [id number] Oct, [facility] [place] [facility] [address] [facility] [id number] [place] [address]- 2546 Oct, [facility] [place] [facility] [address] [facility] [id number] [place] [address]- 5900 Sep, [facility] [address] [facility] [id number] [place] [address]- 3662 Sep, [facility] [place] [address] [facility] [id number], [place] [id number] Sep, [facility] [place] [facility] [address] [facility] [id number] [place] [address]- 3[address] Sep, [facility] [place] [facility] [address] [facility] [id number] [place] [address] Sep, [facility] [address] [facility] [id number] [place] [address] Sep, [facility] [address] [place] [id number] [place] [address] Aug, [facility] [id number] [id number] Aug, [facility] [address] [facility] [id number] [place] [address] Aug, [facility] [address] [facility] [id number] [place] [address] Aug, [facility] [id number][place] [id number] Aug, [facility] [address] [facility] [id number] [place] [address] Aug, [facility] [address] [facility] [id number] [place] [address] Aug, [facility] [address] [facility] [id number] [place] [address] Aug, [facility] [address] [facility] [id number][place] [id number] Aug, [facility] [address] [facility] [id number][place] [id number] Aug, [facility] [address] [facility] [id number] [place] [address] Aug, [facility] [address] [id number] [place] [address] Aug, [facility] [address] [id number][place] [id number] Jul, [facility] [address] [facility] [id number] [place] [address] Jul, [facility] [place] [address] [id number] [id number] Jun, [facility] [place] [facility] [address] [facility] [id number] [place] [address] Jun, [facility] [address] [id number] [place] [id number] Jun, [facility] [place] [facility] [address] [facility] [id number] [place] [address] Jun, [facility] [address] [id number][place] [id number] Jun, [facility] [place] [facility] [address] [facility] [id number] [place] [address] Jun, [facility] [place] [facility] [address] [facility] [id number] [place] [address] May, [facility] [place] [facility] [address] [facility] [id number] [place] [address] May, [facility] [address] [id number][place] [id number] May, [facility] [place] [facility] [address] [facility] [id number] [place] [address] May, [facility] [address] [id number][place] [id number] Apr, [facility] [place] [facility] [address] [id number] [place] [address] Apr, [facility] [address] [id number] [place] [id number] Apr, [facility] [address] [id number] [place] [id number] Apr, [facility] [place] [facility] [address] [id number] [place] [address] Apr, [facility] [place] [facility] [address] [facility] [id number] [place] [address] Apr, [facility] [address] [facility] [id number] [place] [id number] Apr, [facility] [place] [facility] [address] [facility] [id number] [place] [address] Apr, [facility] [address] [facility] [id number] [place] [id number] Apr, [facility] [place] [facility] [address] [facility] [id number] [place] [address] Apr, [facility] [address] [facility] [id number] [place] [id number] Feb, [facility] [place] [facility] [address] [facility] [id number] [place] [address] Feb, [facility] [address] [facility] [id number] [place] [id number] Feb, [facility] [place] [facility] [address] [facility] [id number] [place] [address] Feb, [facility] [place] [facility] [address] [facility] [id number] [place] [address] Jan, [facility] [place] [facility] [address] [facility] [id number] [place] [address] Jan, [facility] [place] [facility] [address] [facility] [id number] [place] [address] Jan, [facility] [address] [facility] [id number] [place] [id number] Jan, [facility] [place] [facility] [address] [facility] [id number] [place] [address] Jan, [facility] [place] [facility] [address] [facility] [id number] [place] [address] Jan, [facility] [address] [id number] [place] [id number] Jan, [facility] [place] [facility] [address] [id number] [place] [address] Jan, [facility] [address] [id number] [place] [id number] December, [facility] [place] [facility] [address] [id number] [place] [address] December, [facility] [address] [id number] [place] [id number] December, [facility] [address] [id number] [place] [id number] December, [facility] [address] [id number] [place] [id number] December, [facility] [place] [facility] [address] [facility] [id number] [place] [address] December, [facility] [place] [facility] [address] [facility] [id number] [place] [address] December, [facility] [place] [facility] [address] [facility] [id number] [place] [address] December, [facility] [address] [facility] [id number][place] [id number] Nov, [facility] [place] [facility] [address] [facility] [id number] [place] [address] Nov, [facility] [address] [facility] [id number][place] [id number] Oct, [facility] [place] [facility] [address] [facility] [id number] [place] [address] Oct, [facility] [place] [facility] [address] [facility] [id number] [place] [address] Sep, [facility] [place] [facility] [address] [facility] [id number] [place] [address] Sep, [facility] [address] [facility] [id number], [place] [id number] Aug, [facility] [address] [id number] [place] [id number] Aug, [facility] [address] [facility] [id number] [place] [address] Aug, [facility] [address] [facility] [id number] [place] [address] Aug, [facility] [address] [id number] [place] [id number] Jul, [facility] [address] [facility] [id number] [place] Jul, [facility] [address] [id number] [place] [id number] Jul, [facility] [address] [facility] [id number] [place] [address] Jul, [facility] [address] [id number][place] [address] Jun, [facility] [address] [facility] [id number] [place] [address] Jun, [facility] [address] [id number] [place] [id number] Apr, [facility] [address] [id number] [place] [id number] Mar, [facility] [address] [id number] [place] [id number] Mar, [facility] [address] [id number] [place] [id number] Mar, [facility] [address] [id number] [place] [id number] Mar, [facility] [address] [id number] [id number] Feb, [facility] [address] [id number] [place] [address] Jan, [facility] [address] [id number] [place] [id number] Jan, [facility] [address] [id number] [place] [address] Jan, [facility] [address] [id number] [place] [id number] Jan, [facility] [address] [id number] [place] [address] December, [facility] [address] [id number] [place] [address] December, [facility] [address] [id number] [place] [address] December, [facility] [place] [facility] [address] [id number] [place] [address] Jul, [facility] [address] [id number] [id number] Jul, [facility] [address] [id number] [place] [id number] Jul, [facility] [address] [id number] [place] [id number] Jul, [facility] [address] [id number] [place] [id number] Jul, [facility] [place] [facility] [id number] [address] Jul, [facility] [place] [facility] [address] [facility] [id number] [place] 17880963- [address] Jul, [facility] [place] [facility] [address] [facility] [id number] [place] 359[place]- [address] Jul, [facility] [address] [id number] [place] [id number] Jun, [facility] [place] [facility] [address] [facility] [id number] [place] Jun, [facility] [place] [facility] [address] [facility] [id number] [place]- [address] Jul, [facility] [place] [facility] [id number] [place] [address] Jul, [facility] [place] [facility] [address] [facility] [id number] [place] [address]- [address] 08 Jul, 2010 [facility] [address] [id number] [place] [address]- [address] 08 Jul, 2010 [facility] [place] [facility] [address] [id number] [place] [address]- 4029 Jun, [facility] [address] [id number] [place] [address]- 8936 Jun, [facility] [place] [facility] [address] [id number] [place] [address] 2549 Jun, [facility] [address] [id number] [place] [address]- [address] Jun, [facility] [address] [id number] [place] [address]- 9489 Jun, [facility] [address] [facility] [id number] [place] [address]- 7880 May, [facility] [address] [id number] [place] [address]- [address] May, [facility] [address] [facility] [id number] [place] [address]- [address] May, [facility] [address] [facility] [id number] [place] [address]- [address] May, [facility] [place] [facility] [address] [id number] [place] [address]- [address] 16 Nov, 2009 [facility] [address] [id number] [place] [address]- 4031 Jul, [facility] [place] [facility] [address] [id number] [place] [address] 2544 Jun, [facility] [place] [facility] [address] [facility] [id number] [place] [address]- 2547 Jun, [facility] [place] [facility] [address] [id number] [place] [address]- [address] 29 May, 2009 [facility] [address] [id number] [address]- [address] May, [facility] [address] [id number] [address] May, [facility] [address] [id number] [address]198 May, [facility] [id number] [address]- [address] May, [facility] [address] [id number] [address]- [address] May, [facility] [address] [id number] [address]- [address] Apr, [facility] [address] [id number] [address] Jan, IMMUNIZATIONS No Known Immunizations SOCIAL HISTORY Never Assessed REASON FOR VISIT PA [facility] PLAN OF CARE VITAL SIGNS MEDICATIONS Unknown [...]
--- OUTSIDE RECORDS SUMMARY | 2018-02-13 11:06 | XMS REPORT ---
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 Name Role Phone DYLLAN GAMING Unavailable PROBLEMS Type Condition ICD9-CM Code [id number] Code Onset Dates Condition Status SNOMED Code Problem Irritable bowel syndrome with both constipation and diarrhea K58.2 Active 11526978 Problem Gastroparesis K31.84 Active 439084371 Problem Gastric pain R10.9 Active 323902211 Problem Urge incontinence of urine N39.41 Active 68958585 Problem Gastroparesis due to secondary diabetes E13.43 Active 4180760 Problem Stress incontinence N39.3 Active 19302454 Problem Diabetes type 2, controlled E11.9 Active 26038777 Problem Anxiety F41.9 Active 72685280 Problem Chronic diarrhea K52.9 Active 274072192 Problem GERD without esophagitis K21.9 Active 714451261 Problem Diarrhea, unspecified type R19.7 Active 87230187 Problem Post traumatic stress disorder (PTSD) F43.10 Active 35996369 Problem Other chronic pain G89.29 Active 35866338 Problem PTSD (post-traumatic stress disorder) F43.10 Active 29447349 Problem Diabetic polyneuropathy associated with type 2 diabetes mellitus E11.42 Active 78323990 Problem Acquired hypothyroidism E03.9 Active 922280710 Problem Pain in right knee M25.561 Active 354211286831472 Problem Constipation by delayed colonic transit K59.01 Active 33985555 Problem Diabetes type 2, uncontrolled E11.65 Active 331222445 Problem Anxiety about health F41.8 Active 965588486 Problem Left foot pain M79.672 Active 18964084 Problem Chronic constipation K59.00 Active 657980720 Problem Pain in left knee M25.562 Active [id number] Problem Low back pain M54.5 Active [id number] ALLERGIES No Information SOCIAL HISTORY Never Assessed [...]
--- OUTSIDE RECORDS SUMMARY | 2018-02-13 11:07 | XMS REPORT ---
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 Name Role Phone BRANDIN OMALLEY Unavailable PROBLEMS Type Condition ICD9-CM Code NQL25-MP Code Onset Dates Condition Status SNOMED Code Problem Neutrophilia D72.9 Active 745163309 Problem Lymphocytosis D72.820 Active 67904321 Problem Chronic constipation K59.00 Active 326027098 Problem Diabetes type 2, uncontrolled E11.65 Active 194316438 Problem Anxiety F41.9 Active 78125796 Problem Diabetes type 2, controlled E11.9 Active 19016121 Problem Gastroparesis due to secondary diabetes E13.43 Active 6784940 Problem Diabetic polyneuropathy associated with type 2 diabetes mellitus E11.42 Active 10409956 Problem Acquired hypothyroidism E03.9 Active 827723364 Problem Post traumatic stress disorder (PTSD) F43.10 Active 36629224 Problem Other chronic pain G89.29 Active 84981993 Problem Diarrhea, unspecified type R19.7 Active 95224597 Problem PTSD (post-traumatic stress disorder) F43.10 Active 16112525 Problem Stress incontinence N39.3 Active 77984740 Problem Lumbago with sciatica, right side M54.41 Active 963151786 Problem Urge incontinence of urine N39.41 Active 11110530 Problem Leukocytosis, unspecified type D72.829 Active 932930081 Problem Sleep apnea in adult G47.30 Active 68895972 Problem Pain in right knee M25.561 Active 748324399403253 Problem Pain in left knee M25.562 Active 822355596293930 Problem Anxiety about health F41.8 Active 247588085 Problem Mixed stress and urge urinary incontinence N39.46 Active 383780653 Problem Mendez''s esophagus with dysplasia K22.719 Active 102949501 Problem Current moderate episode of major depressive disorder without prior episode F32.1 Active 76949336 Problem Syncope, unspecified syncope type R55 Active 266883367 Problem Low back pain M54.5 Active 055794729 Problem Irritable bowel syndrome with both constipation and diarrhea K58.2 Active 67302164 Problem Constipation by delayed colonic transit K59.01 Active 65768568 Problem Left foot pain M79.672 Active 43774839 Problem GERD without esophagitis K21.9 Active 311571299 Problem Chronic diarrhea K52.9 Active 408233366 Problem Gastric pain R10.9 Active 260886744 Problem Gastroparesis K31.84 Active 102069382 ALLERGIES No Information ENCOUNTERS Encounter Location Date Diagnosis [facility] [address] [id number] December, [address] [id number] Oct, Other chronic pain G89.29 ; Anxiety F41.9 and Diabetic polyneuropathy associated with type 2 diabetes mellitus E11.42 [place] [id number] [place] [address] [id number] Oct, Neutrophilia D72.9 [place] [id number] [place] [address] [id number] Sep, Neutrophilia D72.9 ; Lymphocytosis D72.820 and Leukocytosis, unspecified type D72.829 [place] [id number] [place] [address] [id number] Sep, Leukocytosis, unspecified type D72.829 ; Vaginal discharge N89.8 ; Cramp of toe R25.2 ; Sleep apnea in adult G47.30 ; Diabetic polyneuropathy associated with type 2 diabetes mellitus E11.42 ; Anxiety F41.9 ; Other chronic pain G89.29 ; Acquired hypothyroidism E03.9 ; Gastroparesis K31.84 ; PTSD (post- traumatic stress disorder) F43.10 ; Sinus congestion R09.81 and BMI 40.0-44.9, adult Z68.41 [address] [place] [address] [id number] 14 Sep, 2018 Syncope, unspecified syncope type [...] R09.89 and Swelling of lower extremity M79.89 [address] [place] [address] [id number] Aug, Carbuncle and furuncle of buttock L02.33 ; Radicular pain of lower extremity M54.10 ; Mixed stress and urge urinary incontinence N39.46 ; Nail ingrowing L60.0 and BMI 40.0-44.9, adult Z68.41 [facility] [address] [place], [place] [id number] [place] [address]15- [phone] Aug, [address] [place] [address] [id number] Aug, Diabetic polyneuropathy associated with type 2 diabetes mellitus E11.42 ; Anxiety F41.9 and Other chronic pain G89.29 [address] [place] [address] [id number] Jul, [facility] [address] [facility] [id number] [phone] Jul, [address] [id number] [id number] Jul, Diabetic polyneuropathy associated with type 2 diabetes mellitus E11.42 ; Anxiety F41.9 and Other chronic pain G89.29 [address] [place] [address] [id number] Jul, BMI 40.0-44.9, adult Z68.41 ; Diabetes type 2, controlled E11.9 ; Sinus congestion R09.81 ; Sore throat J02.9 ; Gastroparesis K31.84 ; Mendez''s esophagus with dysplasia K22.719 ; Lumbago with sciatica, right side M54.41 and Other chronic pain G89.29 [facility] [id number] [place] [address] 84957- 2600 Jul, [place] [id number] [place] [address] [id number] 17 Jun, 2017 Acute non-recurrent frontal sinusitis J01.10 ; Acute diffuse otitis externa of both ears H60.313 and BMI 40.0-44.9, adult Z68.[address] [id number] 10 Jun, 2017 Diabetic polyneuropathy associated with type 2 diabetes mellitus E11.42 ; Other chronic pain G89.29 and Anxiety F41.9 [place] [id number] [place] [address] [id number] Jun, [address] [id number] 26 Apr, 2017 Anxiety F41.9 ; Gastroparesis K31.84 ; Other chronic pain G89.29 ; PTSD ( post-traumatic stress disorder) F43.10 ; Acquired hypothyroidism E03.9 ; Diabetic polyneuropathy associated with type 2 diabetes mellitus E11.42 ; Chronic seasonal allergic rhinitis, unspecified trigger J30.2 ; Urge incontinence of urine N39.41 ; Acute diffuse otitis externa of right ear H60.311 and BMI 45.0-49.9, adult Z68.42 [place] [id number] [place] [address] [id number] 14 Apr, 2017 Chronic seasonal allergic rhinitis, unspecified trigger J30.2 and Encounter for immunization Z23 [place] [id number] [place] [address] [id number] 11 Apr, 2017 Diabetic polyneuropathy associated with type 2 diabetes mellitus E11.42 ; Acute pain of right knee M25.561 and Post traumatic stress disorder (PTSD) F43.10 [facility] [address] [place] [address]14- 5469 Mar, [place] [id number] [place] [address] [id number] Mar, Well woman exam with routine gynecological exam Z01.419 ; Stress incontinence N39.3 ; High risk sexual behavior Z72.51 ; Screening breast examination Z12.31 and Nausea R11.0 [place] [id number] [place] [address] [id number] Mar, Other chronic pain G89.29 ; Bladder leak R32 ; Sore throat J02.9 ; Post traumatic stress disorder (PTSD) F43.10 and Acute pain of right knee M25.561 [place] [id number] [place] [address] [id number] Feb, [place] [id number] [place] [address] [id number] Feb, Acquired hypothyroidism E03.9 ; Diabetic polyneuropathy associated with type 2 diabetes mellitus E11.42 ; Other chronic pain G89.29 ; Diarrhea, unspecified type R19.7 ; GERD without esophagitis K21.9 ; Post traumatic stress disorder (PTSD) F43.10 ; Intentional self-harm by blunt object, subsequent encounter X79.XXXD and Acute pain of right knee M25.561 [address] [place] [address] [id number] Feb, Acquired hypothyroidism E03.9 [place] [id number] [place] [address] [id number] Jan, Acquired hypothyroidism E03.9 ; Diabetic polyneuropathy associated with type 2 diabetes mellitus E11.42 ; Other chronic pain G89.29 ; Diarrhea, unspecified type R19.7 ; GERD without esophagitis K21.9 ; Post traumatic stress disorder (PTSD) F43.10 ; Intentional self-harm by blunt object, subsequent encounter X79.XXXD and Acute pain of right knee M25.561 [address] [place] [address] [id number] Jan, Acquired hypothyroidism E03.9 ; Diabetic polyneuropathy associated with type 2 diabetes mellitus E11.42 ; Other chronic pain G89.29 ; Diarrhea, unspecified type R19.7 ; GERD without esophagitis K21.9 ; Post traumatic stress disorder (PTSD) F43.10 and Intentional self-harm by blunt object, initial encounter X79.XXXA [place] [id number] [id number] Jan, [facility] [id number] [place] [address] [id number] December, PTSD (post-traumatic stress disorder) F43.10 ; Gastroparesis due to secondary diabetes E13.43 ; Chronic diarrhea K52.9 ; Non-seasonal allergic rhinitis due to pollen J30.1 and Constipation by delayed colonic transit K59.01 [facility] [id number] [place] [address] [phone]- 6295 December, [facility] [id number] [place] [address] [id number] December, Diabetic polyneuropathy associated with type 2 diabetes mellitus E11.42 [facility] [id number] [place] [address] [id number] December, Diabetes type 2, uncontrolled E11.65 ; GERD without esophagitis K21.9 and PTSD (post-traumatic stress disorder) F43.10 [facility] [id number] [place] [address] [id number] Nov, Anxiety F41.9 [facility] [id number] [place] [address] [id number] Nov, Diabetic polyneuropathy associated with type 2 diabetes mellitus E11.42 [facility] [id number] [place] [address] [id number] Oct, Anxiety F41.9 [facility] [address] [place] [address] [id number] Sep, Gastroparesis due to secondary diabetes E13.[address] [facility] [address] [address] Aug, [facility] [id number] [place] [address] [id number] Aug, Chronic constipation K59.09 and Diarrhea, unspecified type R19.7 [facility] [id number] [place] [address] [id number] Aug, Diabetic polyneuropathy associated with type 2 diabetes mellitus E11.42 [facility] [address], [place] [id number] 16 Aug, 2016 Gastroparesis K31.84 ; Diabetes type 2, uncontrolled E11.65 ; Gastric pain R10.9 ; Irritable bowel syndrome with both constipation and diarrhea K58.2 and Chronic constipation K59.00 [facility] [address] [place] [address] [id number] 10 Aug, 2016 Dark stools R19.5 [place] [id number] [place] [address] [id number] 10 Aug, 2016 Gastroparesis K31.84 and Chronic constipation K59.[address] [place] [address] [id number] 09 Aug, 2016 Dark stools R19.5 ; Diabetes type 2, uncontrolled E11.65 ; Gastroparesis due to secondary diabetes E13.43 and Constipation by delayed colonic transit K59.[address] [place] [address] [id number] Aug, Anxiety F41.9 [address] [place] [address] [id number] Aug, Nausea R11.0 ; Left foot pain M79.672 ; Pain in right knee M25.561 ; Low back pain M54.5 and Other chronic pain G89.29 [place] [address] [place] [address] [phone] 0475 Jul, [address] [place] [address] [id number] Jul, [place] [address] [place] [id number] [place] [address] [phone] Jul, PTSD (post-traumatic stress disorder) F43.10 [address] [place] [address] [id number] Jul, Anxiety F41.9 [place] [address] [place] [address] [phone] Jul, [address] [id number] [id number] Jul, PTSD (post-traumatic stress disorder) F43.10 [facility] [id number] [id number] Jul, Diabetes type 2, uncontrolled E11.65 ; Left foot pain M79.672 ; Toe pain, right M79.674 ; Low back pain M54.5 ; Other chronic pain G89.29 ; Pain in right knee M25.561 ; PTSD (post-traumatic stress disorder) F43.10 and Anxiety F41.9 [facility] [id number] [place] [address] [id number] Jul, [facility] [id number] [place] [address] [id number] Jun, PTSD (post-traumatic stress disorder) F43.10 [facility] [id number] [place] [address] [id number] Jun, [facility] [address] [id number] [address] 3[address] Jun, [facility] [id number] [place] [address] [id number] Jun, PTSD (post-traumatic stress disorder) F43.10 [facility] [address] [place] [address] [id number] Jun, [facility] [address] [address] [id number] [place] [address] [id number] Jun, Cellulitis of right lower extremity L03.115 ; Other chronic pain G89.29 ; Pain in right knee M25.561 ; Pain in left knee M25.562 and Anxiety about health F41.8 [facility] [id number], [place] [id number] May, Anxiety F41.9 [place] [id number] [place] [address] [id number] May, PTSD (post-traumatic stress disorder) F43.10 [facility] [address], [place] [id number] May, Diabetes type 2, uncontrolled E11.65 ; Diabetic polyneuropathy associated with type 2 diabetes mellitus E11.42 ; Gastroparesis due to secondary diabetes E13.43 ; Anxiety F41.9 ; Other chronic pain G89.29 ; Pain in right knee M25.561 ; Pain in left knee M25.562 ; Acquired hypothyroidism E03.9 and Chronic constipation K59.00 [facility] [id number] [place] [address] 58603- 7217 May, [facility] [id number] [place] [address] [id number] May, [facility] [id number] [place] [address] [id number] Apr, [facility] [address] [id number] Apr, [facility] [address] [phone]- [phone] Apr, [facility] [id number] [place] [address] [id number] Apr, [facility] [id number] [place] [address] 33359- [phone] Apr, [facility] [id number] [place] [address] [id number] Apr, Diabetes type 2, uncontrolled E11.65 ; Diabetic polyneuropathy associated with type 2 diabetes mellitus E11.42 ; Gastroparesis due to secondary diabetes E13.43 and Encounter for immunization Z23 [facility] [id number] [place] [address] [id number] Apr, Gastroparesis K31.84 and Diabetes type 2, controlled E11.9 [facility] [id number] [place] [address] [id number] Mar, Diabetes type 2, controlled E11.9 ; Chronic constipation K59.00 and Gastroparesis K31.84 [facility] [id number] [place] [address] [id number] Mar, [facility] [id number] [place] [address] [id number] Mar, Diabetes type 2, controlled E11.9 [facility] [id number] [place] [address] [id number] Mar, [facility] [address] [id number] [id number] Feb, [facility] [address] [id number] [place] [phone] Feb, [facility] [address] [id number] [place] [id number] Feb, Diabetes type 2, controlled E11.9 [facility] [address] [id number] [place] [id number] Feb, [facility] [address] [id number] [place] [id number] Jan, [facility] [address] [id number] [place] [phone] Jan, [facility] [address] [id number] [place] [id number] Jan, Diabetes type 2, controlled E11.9 [facility] [id number] [place] [address] [id number] December, [facility] [id number] [place] [address] [id number] December, Diabetes type 2, uncontrolled E11.65 and Diabetes type 2, controlled E11.9 [facility] [id number] [place] [address] [id number] December, [facility] [id number] [place] [address] [id number] Nov, Wound of toenail, subsequent encounter S91.209D and Plantar fascia syndrome M72.2 [facility] [address] [id number] [id number] Nov, Ingrown toenail L60.0 [facility] [id number] [place] [address] [id number] Nov, Wound of toenail, subsequent encounter S91.209D [facility] [id number] [place] [address] [id number] Nov, Tinea unguium B35.1 and Ingrowing nail L60.0 [facility] [id number] [place] [address] [id number] Nov, Ingrown toenail L60.0 [facility] [id number], [place] [id number] 15 Nov, 2015 Cellulitis of right lower extremity L03.115 [facility] [id number], [place] [id number] Nov, Ingrown toenail L60.0 and Diabetes type 2, controlled E11.9 [facility] [id number] [place] [address] [id number] Oct, [facility] [id number] [place] [address] [id number] Oct, Anxiety F41.9 [facility] [id number] [place] [address] [id number] Sep, [facility] [id number] [place] [address] [id number] Sep, Elevated white blood cell count D72.829 and Multiple joint pain M25.50 [facility] [id number] [place] [address] [id number] Sep, Diabetes type 2, uncontrolled E11.65 ; Onychomycosis B35.1 ; Skin candidiasis B37.2 and Anxiety F41.9 [facility] [id number], [place] [id number] Aug, [facility] [id number] [place] [address] [id number] Aug, [facility] [id number], [place] [id number] Jul, Diabetes type 2, uncontrolled E11.65 [facility] [id number], [place] [id number] Jul, [facility] [id number], [place] [id number] Jul, Diabetes type 2, uncontrolled E11.65 [facility] [id number], [place] [id number] Jul, [facility] [id number], [place] [id number] Jun, [facility] [address] [id number] [address]- 9995 Jun, [facility] [address] [id number], [place] [id number] Jun, Diabetes type 2, uncontrolled E11.65 ; Chronic constipation K59.00 and Anxiety F41.9 [facility] [address] [id number] [id number] Jun, Plantar fascia syndrome M72.2 [facility] [address]005[address], [place] [id number] May, [facility] [id number] [place] [address] [phone] May, [facility] [place] [id number] [place] [address] [id number] May, Encounter for immunization Z23 ; Diabetes type 2, uncontrolled E11.65 and Depression with anxiety F41.[address] [place] [address] [id number] Apr, Chronic constipation 564.00 ; Insomnia, unspecified 780.52 ; Diabetes mellitus, type 2 250.00 ; PTSD (post-traumatic stress disorder) 309.81 and Anxiety and depression 300.00 [facility] [address] [facility] [id number] [id number] Apr, [id number] [id number] Apr, Anxiety and depression 300.00 and PTSD (post-traumatic stress disorder) 309.81 [facility] 120 [facility] [id number], [place] [id number] Mar, [place] [id number] [id number] Mar, Follow up V67.9 ; Social anxiety disorder 300.23 and Acid reflux 530.81 [facility] [address]00565100[place], [place] [id number] Feb, [place] [id number] [id number] Feb, [address]00565100[place], [place] [id number] Feb, [facility] [id number], [place] [id number] Feb, [facility] [id number] [place] [address] 10105- 2546 Feb, [facility] [id number], [place] [id number] Feb, Unspecified hereditary and idiopathic peripheral neuropathy 356.9 ; Heartburn 787.1 ; Uncontrolled type 2 diabetes with neuropathy 250.62 ; Otitis externa 380.10 and HEP B (ADULT) DX V05.3 [facility] [id number] [place] [address] [id number] Jan, [facility] [id number] [place] [address] [id number] December, [facility] [id number] [place] [address] 91091- 9506 Nov, [facility] [id number] [place] [address] 56931- 7026 Nov, [facility] [id number] [place] [address] 52746- 4256 Oct, [facility] [place] [facility] [id number] [place] [address] 98024- 3376 Oct, [facility] [id number], [place] [id number] Oct, [facility] [place] [facility] [address] [place] [address] 82489- 2626 Oct, [facility] [place] [facility] [address]00565100[place], [place] [address]- 3826 Oct, [facility] [place] [facility] [id number] [place] [address] 63885- 2246 Oct, [facility] [address] [id number], [place] [id number] Oct, [facility] [place] [facility] [id number] [place] [address] 75517- 0963 Oct, [facility] [address] [id number] [place] [id number] Oct, [facility] [place] [facility] [address] [facility] [id number] [place] [address] Oct, [facility] [address] [id number] [place] [id number] Oct, [facility] [address] [id number] [place] [id number] Oct, [facility] [place] [facility] [address] [facility] [id number] [place] [address] Oct, [facility] [place] [facility] [address] [facility] [id number] [place] [address] Oct, [facility] [address] [facility] [id number] [id number] Oct, [facility] [place] [facility] [id number] [address] Oct, [facility] [place] [facility] [address] [facility] [id number], [place] [address] Sep, [facility] [place] [facility] [address] [id number] [place] [address] Sep, [facility] [address] [facility] [id number] [id number] Sep, [facility] [place] [facility] [address]00565[address], [place] [address] Sep, [facility] [place] [facility] [address] [facility] [id number][place] [address] Sep, [facility] [place] [facility] [address] [facility] [id number], [place] [address] Sep, [facility] [place] [facility] [address] [facility] [id number][place] [address] 7966 Aug, [facility] [address] [facility] [id number][place] [id number] Aug, [facility] [place] [facility] [address] [id number][place] [address] Aug, [facility] [place] [facility] [address] [facility] [id number][place] [address] 1343 Aug, [facility] [address] [facility] [id number][place] [id number] Aug, [facility] [place] [facility] [address] [facility] [id number], [place] [address]137 Aug, [facility] [place] [facility] [address] [facility] [id number], [place] [address] 9842 Aug, [facility] [place] [facility] [address] [facility] [id number], [place] [address] 1000 Aug, [facility] [address] [facility] [id number], [place] [id number] Aug, [facility] [address] [facility] [id number], [place] [id number] Aug, [facility] [place] [facility] [address] [facility] [id number][place] [address] Aug, [facility] [place] [facility] [address] [facility] [id number][place] [address] 4212 Aug, [facility] [address] [facility] [id number][place] [id number] Jul, [facility] [place] [facility] [address] [facility] [id number], [place] [address] Jul, [facility] [address] [facility] [id number][place] 384[address] Jun, [facility] [place] [facility] [address] [facility] [id number], [place] [address] 6714 Jun, [facility] [address] [facility] [id number], [place] [address]878 Jun, [facility] [place] [facility] [address] [facility] [id number], [place] [address]- 6246 Jun, [facility] [address] [facility] [id number], [place] [id number] Jun, [facility] [place] [facility] [address] [facility] [id number][place] [address]- 4536 Jun, [facility] [place] [facility] [address] [facility] [id number] [place] [address] 7768 May, [facility] [place] [facility] [address] [facility] [id number], [place] [address] 2573 May, [facility] [address] [facility] [id number], [place] [id number] May, [facility] [place] [facility] [address] [facility] [id number], [place] [address] 8587 May, [facility] [address] [facility] [id number], [place] [id number] Apr, [facility] [place] [facility] [address] [facility] [id number][place] [address] 3611 Apr, [facility] [address] [id number], [place] [id number] Apr, [facility] [address] [facility] [id number], [place] [address]78364367 Apr, [facility] [place] [facility] [address] [facility] [id number], [place] [address]- 4394 Apr, [facility] [place] [facility] [address] [facility] [id number], [place] [address]- 6481 Apr, [facility] [address] [facility] [id number], [place] [id number] Apr, [facility] [place] [facility] [address] [facility] [id number], [place] [address]- 0646 Apr, [facility] [address] [facility] [id number], [place] [id number] Apr, [facility] [place] [facility] [address] [facility] [id number], [place] [address]- 4592 Apr, [facility] [address] [facility] [id number], [place] [id number] Feb, [facility] [place] [facility] [address] [facility] [id number][place] [address]- 3592 Feb, [facility] [address] [id number] [place] [id number] Feb, [facility] [place] [facility] [address] [id number] [place] [address]- 3473 Feb, [facility] [place] [facility] [address] [facility] [id number] [place] 6817 Jan, [facility] [place] [facility] [address] [facility] [id number] [place] [address]- 9715 Jan, [facility] [place] [facility] [address] [facility] [id number] [place] [address]- 5498 Jan, [facility] [address] [id number], [place] 815583640 Jan, [facility] [place] [facility] [address] [facility] [id number] [place] [address] 2005 Jan, [facility] [place] [facility] [address] [facility] [id number], [place] [address]- 4415 Jan, [facility] [address] [id number] [place] [id number] Jan, [facility] [place] [facility] [address] [facility] [id number], [place] [address]- 6170 Jan, [facility] [address] [id number] [place] [id number] December, [facility] [place] [facility] [address] [id number], [place] [address] 8750 December, [facility] [address] [id number] [place] [id number] December, [facility] [address] [id number] [place] [id number] December, [facility] [address] [id number] [place] [id number] December, [facility] [place] [facility] [address] [facility] [id number], [place] [address]- 2476 December, [facility] [place] [facility] [address] [facility] [id number], [place] [address]- 2546 December, [facility] [address] [facility] [id number], [place] [address]- 9166 December, [facility] [address] [facility] [id number], [place] [id number] Nov, [facility] [place] [facility] [address] [facility] [id number], [place] [address]- 2546 Nov, [facility] [address] [facility] [id number], [place] [id number] Oct, [facility] [place] [facility] [address] [facility] [id number] [place] [address]- 2546 Oct, [facility] [place] [facility] [address] [id number], [place] [address]- 7766 Sep, [facility] [place] [facility] [address]00565100[place], [place] [address]26 Sep, [facility] [address] [facility] [id number], [place] [id number] Aug, [facility] [place] [address] [facility] [id number], [place] 101[address]7962 Aug, [facility] [place] [facility] [address]00565100[place], [place] [address]- 0796 Aug, [facility] [place] [facility] [address] [facility] [id number], [place] [address]- 4956 Aug, [facility] [address] [facility] [id number], [place] 835588336 Jul, [facility] [place] [facility] [address] [facility] [id number], [place] [address]- 2546 Jul, [facility] [address] [facility] [id number], [place] 036556025 Jul, [facility] [place] [facility] [address] [facility] [id number], [place] [address]- 2546 Jul, [facility] [address] [id number], [place] [id number] Jun, [facility] [place] [facility] [address] [id number], [place] [address]- 3240 Jun, [facility] [address] [id number] [place] [id number] Apr, [facility] [address] [id number] [place] [id number] Mar, [facility] [address] [id number] [place] [address]370224[place] Mar, [facility] [address] [id number] [place] 4044640[address] Mar, [facility] [place] [address] [id number] [place] 9247[address]369 Mar, [facility] [address] [id number] [place] [id number] Feb, [facility] [address] [id number] [place] [address] Jan, [facility] [address] [id number] [place] [id number] Jan, [facility] [address] [id number] [place] 757448981 Jan, [facility] [address] [id number] [place] [id number] Jan, [facility] [address] [id number] [place] [id number] December, [facility] [address] [id number] [place] [id number] December, [facility] [address] [id number] [place] [id number] December, [facility] [address] [facility] [id number], [place] [address]- 4994 Jul, [facility] [address] [id number] [place] [id number] Jul, [facility] [address] [id number] [place] [id number] Jul, [facility] [address] [id number], [place] [address]16 Jul, [facility] [address] [id number] [place] 616906296 Jul, [facility] [address] [id number] [place] [address]- 5691 Jul, [facility] [place] [facility] [address] [id number] [place] [address]- 3606 Jul, [facility] [address] [id number] [place] [address]- 1672 Jul, [facility] [address] [id number] [place] [id number] Jun, [facility] [address] [id number] [place] [address]- 6288 Jun, [facility] [place] [facility] [address] [id number] [place] [address]- 8097 Jul, [facility] [place] [facility] [address] [id number] [place] [address]- 5657 Jul, [facility] [place] [facility] [address] [id number] [place] [address]- 1238 Jul, [facility] [place] [facility] [address] [id number] [place] [address]- 8610 Jul, [facility] [place] [facility] [address] [id number] [place] [address]- 3007 Jun, [facility] [place] [facility] [address] [id number] [place] [address]- 8476 Jun, [facility] [place] [facility] [address] [id number], [place] [address]- 2549 Jun, [facility] [place] [facility] [address] [id number] [place] [address]- 1330 Jun, [facility] [place] [facility] [address] [id number] [place] [address]- 7940 Jun, [facility] [place] [facility] [address] [id number], [place] [address]- [address] May, [facility] [address] [id number], [place] [address]- [address]263 [address], [address] [facility] [address] [facility] [id number][place] [address]- 9136 [address], [address] [facility] [address] [facility] [id number], [place] [address]- [address]553 [address], [address] [facility] [address] [facility] [id number] [place] [address]99- 4499 [address], [address] [facility] [address] [id number], [place] [address] Jul, [facility] [address] [facility] [id number] [place] [address]- [address]129 Jun, [facility] [address] [facility] [id number], [place] [address]- [address], [facility] [address] [facility] [id number] [place] [address]- [address]8 May, [facility] [address] [facility] [id number][place] [address]- 6383 May, [facility] [address] [facility] [id number][place] [address]- 5694 May, [facility] [address] [facility] [id number][place] [address]- 4931 May, [facility] [address] [facility] [id number], [place] [address]- [address]048 [address], [address] [facility] [address] [facility] [id number], [place] [address]- 6523 May, [facility] [address] [facility] [id number][place] [address]- [address]019 Apr, [facility] [address] [facility] [id number], [place] [address]- 2189 Jan, IMMUNIZATIONS No Known Immunizations SOCIAL HISTORY Never Assessed REASON FOR VISIT med refill PLAN OF CARE VITAL SIGNS MEDICATIONS Medication Instructions Dosage Frequency Start Date End Date Duration Status Tramadol HCl 50 mg Orally every 6 hrs 1 tablet as needed 6h 0 days Active Lyrica 150 MG Orally 3 times a day 1 capsule 8h 0 days Active Clonazepam 1 MG Orally Once a day 1.5 tabs in pm 24h 0 days Active RESULTS No Results PROCEDURES [...]
--- OUTSIDE RECORDS SUMMARY | 2018-02-13 11:09 | XMS REPORT ---
Author Author [facility] Address [address] [place] [address] Care Team Providers Care Brokerage Purchase And Sale Clerk Name Role Phone DHARA DURON Unavailable PROBLEMS Type Condition ICD9-CM Code MBG75-SZ Code Onset Dates Condition Status SNOMED Code Problem Neutrophilia D72.9 Active 904989785 Problem Lymphocytosis D72.820 Active 03372564 Problem Chronic constipation K59.00 Active 202077593 Problem Diabetes type 2, uncontrolled E11.65 Active 629606059 Problem Anxiety F41.9 Active 35156472 Problem Diabetes type 2, controlled E11.9 Active 04585038 Problem Gastroparesis due to secondary diabetes E13.43 Active 4568523 Problem Diabetic polyneuropathy associated with type 2 diabetes mellitus E11.42 Active 98951807 Problem Acquired hypothyroidism E03.9 Active 105406306 Problem Post traumatic stress disorder (PTSD) F43.10 Active 06694842 Problem Other chronic pain G89.29 Active 58725990 Problem Diarrhea, unspecified type R19.7 Active 07293006 Problem PTSD (post-traumatic stress disorder) F43.10 Active 71153759 Problem Stress incontinence N39.3 Active 02271388 Problem Lumbago with sciatica, right side M54.41 Active 496848635 Problem Urge incontinence of urine N39.41 Active 66706479 Problem Leukocytosis, unspecified type D72.829 Active 248857839 Problem Sleep apnea in adult G47.30 Active 43199111 Problem Pain in right knee M25.561 Active 727011945477755 Problem Pain in left knee M25.562 Active 194773872099292 Problem Anxiety about health F41.8 Active 639481296 Problem Mixed stress and urge urinary incontinence N39.46 Active 218048056 Problem Mendez''s esophagus with dysplasia K22.719 Active 859047870 Problem Current moderate episode of major depressive disorder without prior episode F32.1 Active 72017978 Problem Syncope, unspecified syncope type R55 Active 942600709 Problem Low back pain M54.5 Active 492664353 Problem Irritable bowel syndrome with both constipation and diarrhea K58.2 Active 96785760 Problem Constipation by delayed colonic transit K59.01 Active 68437276 Problem Left foot pain M79.672 Active 22355502 Problem GERD without esophagitis K21.9 Active 207814880 Problem Chronic diarrhea K52.9 Active 809510652 Problem Gastric pain R10.9 Active 801150627 Problem Gastroparesis K31.84 Active 696595335 ALLERGIES Substance Reaction Event Type Date Status Sulfamethoxazole-Trimethoprim swelling Drug Allergy Apr, Active ENCOUNTERS Encounter Location Date Diagnosis [facility] [id number] [place] [address] [phone]- 0257 December, [id number] [place] [address] [id number] Nov, Diabetic polyneuropathy associated with type 2 diabetes mellitus E11.42 ; Anxiety F41.9 and Other chronic pain G89.29 [id number] [place] [address] [id number] Oct, Other chronic pain G89.29 ; Anxiety F41.9 and Diabetic polyneuropathy associated with type 2 diabetes mellitus E11.42 [id number] [place] [address] [id number] Oct, Neutrophilia D72.9 [id number] [place] [address] [id number] Sep, Neutrophilia D72.9 ; Lymphocytosis D72.820 and Leukocytosis, unspecified type D72.829 [id number] [place] [address] [id number] Sep, Leukocytosis, unspecified type D72.829 ; Vaginal discharge N89.8 ; Cramp of toe R25.2 ; Sleep apnea in adult G47.30 ; Diabetic polyneuropathy associated with type 2 diabetes mellitus E11.42 ; Anxiety F41.9 ; Other chronic pain G89.29 ; Acquired hypothyroidism E03.9 ; Gastroparesis K31.84 ; PTSD (post- traumatic stress disorder) F43.10 ; Sinus congestion R09.81 and BMI 40.0-44.9, adult Z68.[id number] [place] [address] [id number] 14 Sep, 2017 Syncope, unspecified syncope type [...] R09.89 and Swelling of lower extremity M79.89 [address] [place] [address] [id number] Aug, Carbuncle and furuncle of buttock L02.33 ; Radicular pain of lower extremity M54.10 ; Mixed stress and urge urinary incontinence N39.46 ; Nail ingrowing L60.0 and BMI 40.0-44.9, adult Z68.41 [facility] [address] [place] [address] [phone]- 5603 Aug, [address] [place] [address] [id number] Aug, Diabetic polyneuropathy associated with type 2 diabetes mellitus E11.42 ; Anxiety F41.9 and Other chronic pain G89.29 [address] [place] [address] [id number] Jul, [facility] [id number] [place] [address] 05673- 2174 Jul, [address] [id number] [id number] Jul, Diabetic polyneuropathy associated with type 2 diabetes mellitus E11.42 ; Anxiety F41.9 and Other chronic pain G89.29 [id number] [place] [address] [id number] Jul, BMI 40.0-44.9, adult Z68.41 ; Diabetes type 2, controlled E11.9 ; Sinus congestion R09.81 ; Sore throat J02.9 ; Gastroparesis K31.84 ; Mendez''s esophagus with dysplasia K22.719 ; Lumbago with sciatica, right side M54.41 and Other chronic pain G89.29 [facility] [address] [address] Jul, [address] [place] [address] [id number] Jun, Acute non-recurrent frontal sinusitis J01.10 ; Acute diffuse otitis externa of both ears H60.313 and BMI 40.0-44.9, adult Z68.41 [address] [place] [address] [id number] Jun, Diabetic polyneuropathy associated with type 2 diabetes mellitus E11.42 ; Other chronic pain G89.29 and Anxiety F41.9 [address] [place] [address] [id number] Jun, [id number] [place] [address] [id number] Apr, Anxiety F41.9 ; Gastroparesis K31.84 ; Other chronic pain G89.29 ; PTSD ( post-traumatic stress disorder) F43.10 ; Acquired hypothyroidism E03.9 ; Diabetic polyneuropathy associated with type 2 diabetes mellitus E11.42 ; Chronic seasonal allergic rhinitis, unspecified trigger J30.2 ; Urge incontinence of urine N39.41 ; Acute diffuse otitis externa of right ear H60.311 and BMI 45.0-49.9, adult Z68.42 [id number] [place] [address] [id number] 14 Apr, 2017 Chronic seasonal allergic rhinitis, unspecified trigger J30.2 and Encounter for immunization Z23 [address] [place] [address] [id number] 11 Apr, 2017 Diabetic polyneuropathy associated with type 2 diabetes mellitus E11.42 ; Acute pain of right knee M25.561 and Post traumatic stress disorder (PTSD) F43.10 [facility] [address] [address] Mar, [facility] [address] [place] [address] [id number] Mar, Well woman exam with routine gynecological exam Z01.419 ; Stress incontinence N39.3 ; High risk sexual behavior Z72.51 ; Screening breast examination Z12.31 and Nausea R11.0 [facility] [id number] [place] [address] [id number] Mar, Other chronic pain G89.29 ; Bladder leak R32 ; Sore throat J02.9 ; Post traumatic stress disorder (PTSD) F43.10 and Acute pain of right knee M25.561 [facility] [address] [place] [address] [id number] Feb, [id number] [place] [address] [id number] Feb, Acquired hypothyroidism E03.9 ; Diabetic polyneuropathy associated with type 2 diabetes mellitus E11.42 ; Other chronic pain G89.29 ; Diarrhea, unspecified type R19.7 ; GERD without esophagitis K21.9 ; Post traumatic stress disorder (PTSD) F43.10 ; Intentional self-harm by blunt object, subsequent encounter X79.XXXD and Acute pain of right knee M25.561 [facility] [id number][place] [id number] Feb, Acquired hypothyroidism E03.9 [address] [place] [address] [id number] Jan, Acquired hypothyroidism E03.9 ; Diabetic polyneuropathy associated with type 2 diabetes mellitus E11.42 ; Other chronic pain G89.29 ; Diarrhea, unspecified type R19.7 ; GERD without esophagitis K21.9 ; Post traumatic stress disorder (PTSD) F43.10 ; Intentional self-harm by blunt object, subsequent encounter X79.XXXD and Acute pain of right knee M25.561 [address] [place] [address] [id number] Jan, Acquired hypothyroidism E03.9 ; Diabetic polyneuropathy associated with type 2 diabetes mellitus E11.42 ; Other chronic pain G89.29 ; Diarrhea, unspecified type R19.7 ; GERD without esophagitis K21.9 ; Post traumatic stress disorder (PTSD) F43.10 and Intentional self-harm by blunt object, initial encounter X79.XXXA [facility] [id number] [place] [address] [id number] Jan, [facility] [id number] [place] [address] [id number] December, PTSD (post-traumatic stress disorder) F43.10 ; Gastroparesis due to secondary diabetes E13.43 ; Chronic diarrhea K52.9 ; Non-seasonal allergic rhinitis due to pollen J30.1 and Constipation by delayed colonic transit K59.01 [facility] [address] [address]- [address] December, [facility] [id number] [place] [address] [id number] December, Diabetic polyneuropathy associated with type 2 diabetes mellitus E11.42 [facility] [id number] [place] [address] [id number] December, Diabetes type 2, uncontrolled E11.65 ; GERD without esophagitis K21.9 and PTSD (post-traumatic stress disorder) F43.10 [facility] [address] [place] [address] [id number] Nov, Anxiety F41.9 [facility] [id number] [place] [address] [id number] Nov, Diabetic polyneuropathy associated with type 2 diabetes mellitus E11.42 [facility] [id number] [place] [address] [id number] Oct, Anxiety F41.9 [id number] [place] [address] [id number] Sep, Gastroparesis due to secondary diabetes E13.43 and Anxiety F41.9 [facility] [id number] [place] [address] 32922- 2158 Aug, [facility] [address] [id number] Aug, Chronic constipation K59.09 and Diarrhea, unspecified type R19.7 [facility] [id number] [place] [address] [id number] Aug, Diabetic polyneuropathy associated with type 2 diabetes mellitus E11.42 [facility] [id number] [place] [address] [id number] 16 Aug, 2016 Gastroparesis K31.84 ; Diabetes type 2, uncontrolled E11.65 ; Gastric pain R10.9 ; Irritable bowel syndrome with both constipation and diarrhea K58.2 and Chronic constipation K59.00 [facility] [id number] [place] [address] [id number] 10 Aug, 2016 Dark stools R19.5 [facility] [address] [id number] 10 Aug, 2016 Gastroparesis K31.84 and Chronic constipation K59.00 [id number] [place] [address] [id number] 09 Aug, 2016 Dark stools R19.5 ; Diabetes type 2, uncontrolled E11.65 ; Gastroparesis due to secondary diabetes E13.43 and Constipation by delayed colonic transit K59.01 [facility] [id number] [place] [address] [id number] Aug, Anxiety F41.9 [id number] [place] [address] [id number] Aug, Nausea R11.0 ; Left foot pain M79.672 ; Pain in right knee M25.561 ; Low back pain M54.5 and Other chronic pain G89.29 [facility] [id number] [place] [address] 68716- 2331 Jul, [address] [id number] Jul, [facility] [address] [id number] Jul, PTSD (post-traumatic stress disorder) F43.10 [id number] [place] [address] [id number] Jul, Anxiety F41.9 [facility] [address] [facility] [id number], [place] [address] Jul, [facility] [address] [facility] [address] [id number] [id number] Jul, PTSD (post-traumatic stress disorder) F43.10 [facility] [id number][place] [id number] Jul, Diabetes type 2, uncontrolled E11.65 ; Left foot pain M79.672 ; Toe pain, right M79.674 ; Low back pain M54.5 ; Other chronic pain G89.29 ; Pain in right knee M25.561 ; PTSD (post-traumatic stress disorder) F43.10 and Anxiety F41.9 [facility] [id number], [place] [id number] Jul, [facility] [id number] [place] [address] [id number] Jun, PTSD (post-traumatic stress disorder) F43.10 [facility] [id number], [place] [id number] Jun, [facility] [id number] [address]- 3[address] Jun, [facility] [id number] [place] [address] [id number] Jun, PTSD (post-traumatic stress disorder) F43.10 [facility] [id number], [place] [id number] Jun, [facility] [id number], [place] [id number] Jun, Cellulitis of right lower extremity L03.115 ; Other chronic pain G89.29 ; Pain in right knee M25.561 ; Pain in left knee M25.562 and Anxiety about health F41.8 [facility] [id number], [place] [id number] May, Anxiety F41.9 [facility] [id number] [place] [address] [id number] May, PTSD (post-traumatic stress disorder) F43.10 [facility] [id number] [place] [address] [id number] May, Diabetes type 2, uncontrolled E11.65 ; Diabetic polyneuropathy associated with type 2 diabetes mellitus E11.42 ; Gastroparesis due to secondary diabetes E13.43 ; Anxiety F41.9 ; Other chronic pain G89.29 ; Pain in right knee M25.561 ; Pain in left knee M25.562 ; Acquired hypothyroidism E03.9 and Chronic constipation K59.00 [facility] [id number] [place] [address] [phone] [phone] May, [facility] [id number] [place] [address] [id number] May, [facility] [id number] [place] [address] [id number] Apr, [facility] [id number] [place] [address] [id number] Apr, [facility] [id number] [place] [address] [phone] Apr, [facility] [id number] [place] [address] [id number] Apr, [facility] [id number] [place] [address] 54325- 4352 Apr, [facility] [id number] [place] [address] [id number] Apr, Diabetes type 2, uncontrolled E11.65 ; Diabetic polyneuropathy associated with type 2 diabetes mellitus E11.42 ; Gastroparesis due to secondary diabetes E13.43 and Encounter for immunization Z23 [facility] [id number] [place] [address] [id number] Apr, Gastroparesis K31.84 and Diabetes type 2, controlled E11.9 [facility] [id number] [place] [address] [id number] Mar, Diabetes type 2, controlled E11.9 ; Chronic constipation K59.00 and Gastroparesis K31.84 [facility] [address] [id number] [place] [id number] Mar, [facility] [address] [id number] [place] [id number] Mar, Diabetes type 2, controlled E11.9 [facility] [address] [id number] [place] [id number] Mar, [facility] [address] [id number] [place] [id number] Feb, [facility] [address] [id number] [place] [id number] Feb, [facility] [address] [id number] [place] [id number] Feb, Diabetes type 2, controlled E11.9 [facility] [address] [id number] [place] [id number] Feb, [facility] [address] [id number] [place] [id number] Jan, [facility] [address] [id number] [place] [id number] Jan, [facility] [address] [id number] [place] [id number] Jan, Diabetes type 2, controlled E11.9 [facility] [address] [id number] [place] [id number] December, [facility] [address] [id number] [place] [id number] December, Diabetes type 2, uncontrolled E11.65 and Diabetes type 2, controlled E11.9 [facility] [address] [id number], [place] [id number] December, [facility] [address] [id number], [place] [id number] Nov, Wound of toenail, subsequent encounter S91.209D and Plantar fascia syndrome M72.2 [facility] [address] [id number][place] [id number] Nov, Ingrown toenail L60.0 [facility] [address] [id number][place] [id number] Nov, Wound of toenail, subsequent encounter S91.209D [facility] [id number] [place] [address] [id number] Nov, Tinea unguium B35.1 and Ingrowing nail L60.0 [id number] [place] [address] [id number] 18 Nov, 2015 Ingrown toenail L60.[address] [id number] Nov, 2015 Cellulitis of right lower extremity L03.[address] [id number] Nov, Ingrown toenail L60.0 and Diabetes type 2, controlled E11.9 [id number] [place] [address] [id number] Oct, [address] [id number] Oct, Anxiety F41.9 [id number] [place] [address] [id number] Sep, [address] [id number] Sep, Elevated white blood cell count D72.829 and Multiple joint pain M25.[address] [id number] Sep, Diabetes type 2, uncontrolled E11.65 ; Onychomycosis B35.1 ; Skin candidiasis B37.2 and Anxiety F41.9 [id number] [place] [address] [id number] Aug, [id number] [place] [address] [id number] Aug, [address] [id number] Jul, Diabetes type 2, uncontrolled E11.65 [id number] [place] [address] [id number] Jul, [address] [id number] Jul, Diabetes type 2, uncontrolled E11.65 [facility] [address] [id number] [id number] Jul, [address]005[address] [id number] Jun, [facility] [address] [id number] [phone]- [address]37 Jun, [address]00565[place] [id number] Jun, Diabetes type 2, uncontrolled E11.65 ; Chronic constipation K59.00 and Anxiety F41.9 [address] [facility] [id number], [place] [id number] Jun, Plantar fascia syndrome M72.2 [address]00565[place] [id number] May, [address] [place] [address] [id number] May, [address]00565100[place] [id number] May, Encounter for immunization Z23 ; Diabetes type 2, uncontrolled E11.65 and Depression with anxiety F41.8 [address]00565100[place] [id number] Apr, Chronic constipation 564.00 ; Insomnia, unspecified 780.52 ; Diabetes mellitus, type 2 250.00 ; PTSD (post-traumatic stress disorder) 309.81 and Anxiety and depression 300.00 [facility] [address] [id number][place] [id number] Apr, [address] [id number], [place] [id number] Apr, Anxiety and depression 300.00 and PTSD (post-traumatic stress disorder) 309.81 [facility] [address] [facility] [id number], [place] [id number] Mar, [id number] [id number] Mar, Follow up V67.9 ; Social anxiety disorder 300.23 and Acid reflux 530.81 [facility] [id number], [place] [id number] Feb, [facility] [id number] [place] [address] [id number] Feb, [facility] [id number] [place] [address] [id number] Feb, [facility] [id number] [place] [address] [id number] Feb, [facility] [id number] [place] [address] 12651- 2546 Feb, [facility] [id number] [place] [address] [id number] Feb, Unspecified hereditary and idiopathic peripheral neuropathy 356.9 ; Heartburn 787.1 ; Uncontrolled type 2 diabetes with neuropathy 250.62 ; Otitis externa 380.10 and HEP B (ADULT) DX V05.3 [facility] [id number] [place] [address] [id number] Jan, [facility] [id number] [place] [address] [id number] December, [facility] [id number] [place] [address] 36614- 8034 Nov, [facility] [id number] [place] [address] 50218- 1586 Nov, [facility] [id number] [place] [address] 60231- 4615 Oct, [facility] [id number] [place] [address] 97995- 6768 Oct, [facility] [address] [place] [address] [id number] Oct, [facility] [id number] [place] [address] 85116- 9269 Oct, [facility] [id number] [place] [address] 62950- [phone] Oct, [facility] [address] [facility] [id number], [place] [address]- 4842 Oct, [facility] [address] [id number] [place] [id number] Oct, [facility] [address] [facility] [id number], [place] [address]- 0534 Oct, [facility] [address] [facility] [id number] [place] [id number] Oct, [facility] [address] [facility] [id number], [place] [address]- 4526 Oct, [facility] [address] [id number] [place] [id number] Oct, [facility] [address] [facility] [id number] [place] [id number] Oct, [facility] [address] [id number], [place] [address]- 4858 Oct, [facility] [address] [facility] [id number], [place] [address]- 3566 Oct, [facility] [address] [facility] [id number] [place] [id number] Oct, [facility] [address] [facility] [id number], [place] [address] Oct, [facility] [place] [facility] [id number] [id number] Sep, [facility] [place] [facility] [address] [facility] [id number], [place] [address] Sep, [facility] [address] [facility] [id number] [id number] Sep, [facility] [place] [facility] [address] [facility] [id number], [place] [address] Sep, [facility] [place] [facility] [address] [facility] [id number], [place] [address] Sep, [facility] [place] [facility] [address] [facility] [id number], [place] [address] Sep, [facility] [address] [id number] [place] [id number] Aug, [facility] [place] [facility] [address] [id number], [place] [address] Aug, [facility] [place] [facility] [address] [facility] [id number] [place] [address] Aug, [facility] [place] [facility] [address] [id number], [place] [address] Aug, [facility] [address] [id number] [place] [id number] Aug, [facility] [place] [facility] [address] [facility] [id number], [place] [address] Aug, [facility] [place] [facility] [address] [facility] [id number] [place] [address] Aug, [facility] [place] [facility] [address] [facility] [id number], [place] [address] Aug, [facility] [address] [id number] [place] [id number] Aug, [facility] [address] [id number][place] [id number] Aug, [facility] [address] [facility] [id number], [place] [address] Aug, [facility] [place] [facility] [address] [id number], [place] [address] Aug, [facility] [address] [id number][place] [id number] Jul, [facility] [place] [facility] [address] [id number], [place] [address] Jul, [facility] [address] [id number] [place] [id number] Jun, [facility] [place] [facility] [address] [id number], [place] [address] Jun, [facility] [address] [id number][place] [address] Jun, [facility] [place] [facility] [address] [facility] [id number], [place] [address] Jun, [facility] [address] [facility] [id number][place] [id number] Jun, [facility] [place] [facility] [address] [facility] [id number], [place] [address] Jun, [facility] [place] [facility] [address] [facility] [id number], [place] [address] May, [facility] [place] [facility] [address] [facility] [id number], [place] [address] May, [facility] [address] [facility] [id number][place] [id number] May, [facility] [place] [facility] [id number], [place] [address] May, [facility] [address] [facility] [id number], [place] [id number] Apr, [facility] [place] [facility] [address] [facility] [id number], [place] [address] Apr, [facility] [address] [facility] [id number], [place] [id number] Apr, [facility] [address] [facility] [id number], [place] [id number] Apr, [facility] [place] [facility] [address] [facility] [id number], [place] [address] Apr, [facility] [place] [facility] [address] [facility] [id number], [place] [address] Apr, [facility] [address] [facility] [id number], [place] [id number] Apr, [facility] [place] [facility] [address] [facility] [id number], [place] [address] Apr, [facility] [address] [facility] [id number][place] [id number] Apr, [facility] [place] [facility] [address] [id number], [place] [address] Apr, [facility] [address] [id number] [place] [id number] Feb, [facility] [place] [facility] [address] [facility] [id number] [place] [address] Feb, [facility] [address] [id number] [place] [id number] Feb, [facility] [place] [facility] [address] [facility] [id number] [place] [address] Feb, [facility] [place] [facility] [address] [facility] [id number] [place] [address] Jan, [facility] [place] [facility] [address] [facility] [id number] [place] [address] Jan, [facility] [place] [facility] [id number] [place] [address] Jan, [facility] [address] [facility] [id number][place] [id number] Jan, [facility] [place] [facility] [address] [facility] [id number] [place] [address] Jan, [facility] [place] [facility] [address] [facility] [id number] [place] [address] Jan, [facility] [address] [id number][place] [id number] Jan, [facility] [place] [facility] [address] [facility] [id number], [place] [address] Jan, [facility] [address] [id number] [place] [id number] December, [facility] [place] [facility] [address] [facility] [id number] [place] [address] December, [facility] [address] [id number] [place] [id number] December, [facility] [address] [id number][place] [id number] December, [facility] [address] [id number] [place] [id number] December, [facility] [place] [facility] [address] [id number] [place] [address] December, [facility] [place] [facility] [address] [facility] [id number] [place] [address] December, [facility] [place] [facility] [address] [facility] [id number] [place] [address] December, [facility] [address] [facility] [id number] [place] [id number] Nov, [facility] [place] [facility] [address] [facility] [id number] [place] [address] Nov, [facility] [address] [facility] [id number] [place] [id number] Oct, [facility] [place] [facility] [address] [facility] [id number], [place] [address] Oct, [facility] [place] [facility] [address] [facility] [id number] [place] [address] Sep, [facility] [place] [facility] [address] [facility] [id number], [place] [address] Sep, [facility] [address] [facility] [id number], [place] [id number] Aug, [facility] [address] [facility] [id number][place] [address] Aug, [facility] [place] [facility] [address] [id number], [place] [address] Aug, [facility] [place] [facility] [address] [facility] [id number], [place] [address] Aug, [facility] [address] [facility] [id number], [place] [address] Jul, [facility] [place] [facility] [address] [facility] [id number] [place] [address] Jul, [facility] [address] [id number] [place] [id number] Jul, [facility] [place] [address] [id number], [place] [address] Jul, [facility] [address] [id number] [place] [id number] Jun, [facility] [place] [address] [id number], [place] [address] 2544 Jun, [facility] [address] [id number] [place] [id number] Apr, [facility] [address] [id number] [place] [id number] Mar, [facility] [address] [id number] [place] [id number] Mar, [facility] [address] [id number] [place] [id number] Mar, [facility] [address] [id number] [place] [id number] Mar, [facility] [address] [id number] [place] [address] Feb, [facility] [address] [id number] [place] [id number] Jan, [facility] [address] [id number] [place] [id number] Jan, [facility] [address] [id number] [place] [address] Jan, [facility] [address] [id number] [place] [address] Jan, [facility] [address] [id number] [place] [id number] December, [facility] [address] [id number] [place] [id number] December, [facility] [address] [id number] [place] [id number] December, [facility] [place] [address] [id number], [place] [address] Jul, [facility] [address] [id number] [place] [id number] Jul, [facility] [address] [id number] [place] [id number] Jul, [facility] [address] [id number] [place] [id number] Jul, [facility] [address] [id number] [place] [address] Jul, [facility] [place] [facility] [address] [id number] [place] [address] Jul, [facility] [place] [facility] [address] [id number] [place] [address]- 4319 Jul, [facility] [place] [facility] [address] [facility] [id number], [place] [address] Jul, [facility] [address] [id number] [place] [id number] Jun, [facility] [place] [facility] [address] [facility] [id number], [place] [address] Jun, [facility] [place] [facility] [address] [facility] [id number], [place] [address]- 9893 Jul, [facility] [place] [facility] [address] [facility] [id number], [place] [address]- 4788 Jul, [facility] [place] [facility] [address] [id number] [address] Jul, [facility] [place] [facility] [address] [facility] [id number], [place] [address]- 286[address] Jul, [facility] [place] [facility] [address] [facility] [id number], [place] [address]- 5535 Jun, [facility] [place] [facility] [address] [facility] [id number], [place] [address]- 4363 Jun, [facility] [place] [facility] [address] [facility] [id number][place] [address] Jun, [facility] [place] [facility] [address] [facility] [id number], [place] [address]- 2523 Jun, [facility] [place] [facility] [address] [id number] [place] [address]- 4813 04 Jun, 2010 [facility] [place] [facility] [address] [id number], [place] [address]- 3464 27 May, 2010 [facility] [place] [facility] [address] [id number] [place] [address]- 2766 19 May, 2010 [facility] [place] [facility] [address] [id number], [place] [address]- 7329 13 May, 2010 [facility] [place] [facility] [address] [id number] [place] [address]- 1864 13 May, 2010 [facility] [place] [facility] [address] [id number] [place] [address]- 9673 16 Nov, 2009 [facility] [place] [facility] [address] [id number], [place] [address]- 3638 28 Jul, 2009 [facility] [place] [facility] [address] [id number], [place] [address]- 395[address] Jun, [facility] [place] [facility] [address] [id number], [place] [address]- 7700 09 Jun, 2009 [facility] [place] [facility] [address] [id number], [place] [address]- 5176 29 May, 2009 [facility] [place] [facility] [address] [id number], [place] [address]- 6323 28 May, 2009 [facility] [place] [facility] [address] [id number], [place] [address]- 0189 26 May, 2009 [facility] [place] [facility] [address] [id number], [place] [address] 2543 14 May, 2009 [facility] [place] [facility] [address] [id number], [place] [address]- 8834 14 May, 2009 [facility] [place] [facility] [address] [id number], [place] [address]- 8640 12 May, 2009 [facility] [place] [facility] [address] [facility] [id number] [place] [address]67 Apr, [facility] [place] [address] [facility] [id number], [place] [address]- [address] Jan, IMMUNIZATIONS Vaccine Route Administration Date Status FLUARIX QUAD (3 AND UP) 2016 IM Intramuscular Apr 21, 2017 Administered SOCIAL HISTORY Never Assessed REASON FOR VISIT Pt c/o Sore/itchy Throat, Cough, drainage started about 2 weeks ago, denies fever, Would like flu shot today Marlene MISHRA PLAN OF CARE Activity Details Follow Up prn Reason: VITAL SIGNS Height 62 in 2017-04-21 Weight 249.0 lbs 2017-04-21 Temperature 97.9 degrees Fahrenheit 2017-04-21 Heart Rate 82 bpm 2017-04-21 Respiratory Rate 16 2017-04-21 BMI 45.54 kg/m2 2017-04-21 Blood pressure systolic 118 mmHg 2017-04-21 Blood pressure diastolic 70 mmHg 2017-04-21 MEDICATIONS Medication Instructions Dosage Frequency Start Date End Date Duration Status Mobic 7.5 MG Orally twice a day 1 tablet 12h Jun, Active Voltaren 1 % Transdermal 2 times a day as directed 12h 0 Active PredniSONE 20 mg Orally Once a day 1 tablet 24h Apr, Apr, 05 days Active Sucralfate 1 GM Orally twice per day 1 tablet on an empty stomach and crush and dissolve in water 30mins before taking 0 Active Oxybutynin Chloride 5 mg Orally Twice a day-must increase water intake 1 tablet 0 Active Blood Glucose Test Strip ... subcutaneously 4 times a day as directed 6h Jan, Active Pen [place] 29G X 12MM subcutaneous 4 times a day Inject 6h Active Clonazepam 1 MG Orally Once a day 1.5 tabs in pm 24h 0 days Active Glucometer 1 glucometer as directed Jan, Active TRUEplus Lancets 28G - USE TO CHECK BLOOD SUGAR FOUR (4) TIMES DAILY... Active Metformin HCl 850 MG Orally twice a day 1 tablet with a meal 12h Jul, Active Vitamin D-3 1000 UNIT Orally Once a day 1 capsule 24h Active Trulicity 1.5 MG/0.5ML Subcutaneous once weekly 0.5 ml 0 Active Lisinopril 2.5 MG TAKE ONE (1) TABLET BY MOUTH DAILY... 90 Active Linzess 145 MCG Orally Once a day (DX: chronic constipation/abd pain) 1 capsule May, Active Zofran 8 MG Orally Once a day as needed for nausea 1 tablet Active Hydrochlorothiazide 12.5 MG TAKE ONE (1) CAPSULE BY MOUTH ONCE DAILY... Active Fluticasone Propionate 50 MCG/ACT Nasally Once a day 1 spray in each nostril 24h Active Escitalopram Oxalate 20 mg Orally Once a day 1 tablet 24h Active BusPIRone HCl 10 MG TAKE ONE (1) TABLET BY MOUTH TWICE DAILY... Active Prevacid 30 MG Orally Once a day 1 capsule 24h Active VESIcare 10 mg Orally Once a day 1 tablet 24h Mar, 0 days Active Lyrica 150 MG Orally 3 times a day 1 capsule 8h 0 days Active Fetzima 80 MG TAKE ONE (1) CAPSULE BY MOUTH ONCE DAILY... Active Levothyroxine Sodium 25 MCG Orally Once a day 1 tablet 24h Active Singulair 10 mg Orally Once a day 1 tablet in the evening 24h December, Active HydrOXYzine HCl 50 MG Orally 3 times a day 1/2 in am 1/2 tab noon and 1 tablet at bedtime 8h Active Trulicity 1.5 MG/0.5ML Subcutaneous once weekly 0.5 ml Active Tramadol HCl 50 mg Orally every 6 hrs 1 tablet as needed 6h 0 days Active RESULTS No Results PROCEDURES Procedure Date Ordered Result Body Site FLUARIX QUAD (3 & UP)-[id number] 21, 2017 SINGLE IMMUNIZATION ADMIN Apr 21, 2017 INSTRUCTIONS MEDICATIONS ADMINISTERED No Known [...]
--- OUTSIDE RECORDS SUMMARY | 2018-02-13 11:12 | XMS REPORT ---
Author Author DYLLAN GAMING [facility] Address [address] [place] [address] Care Team Providers Care Director Of Event Management Name Role Phone DYLLAN GAMING Unavailable PROBLEMS Type Condition ICD9-CM Code BEX28-MF Code Onset Dates Condition Status SNOMED Code Problem Neutrophilia D72.9 Active 012453721 Problem Lymphocytosis D72.820 Active 85155744 Problem Chronic constipation K59.00 Active 944204253 Problem Diabetes type 2, uncontrolled E11.65 Active 097106829 Problem Anxiety F41.9 Active 43473951 Problem Diabetes type 2, controlled E11.9 Active 91862435 Problem Gastroparesis due to secondary diabetes E13.43 Active 1863469 Problem Diabetic polyneuropathy associated with type 2 diabetes mellitus E11.42 Active 91896205 Problem Acquired hypothyroidism E03.9 Active 841600435 Problem Post traumatic stress disorder (PTSD) F43.10 Active 69058346 Problem Other chronic pain G89.29 Active 80531108 Problem Diarrhea, unspecified type R19.7 Active 03612382 Problem PTSD (post-traumatic stress disorder) F43.10 Active 77641082 Problem Stress incontinence N39.3 Active 40512833 Problem Lumbago with sciatica, right side M54.41 Active 213509919 Problem Urge incontinence of urine N39.41 Active 36360762 Problem Leukocytosis, unspecified type D72.829 Active 535455868 Problem Sleep apnea in adult G47.30 Active 71484679 Problem Pain in right knee M25.561 Active 691136217271096 Problem Pain in left knee M25.562 Active 207587351707594 Problem Anxiety about health F41.8 Active 491788792 Problem Mixed stress and urge urinary incontinence N39.46 Active 442654716 Problem Mendez''s esophagus with dysplasia K22.719 Active 778190184 Problem Current moderate episode of major depressive disorder without prior episode F32.1 Active 36527422 Problem Syncope, unspecified syncope type R55 Active 506221272 Problem Low back pain M54.5 Active 407843127 Problem Irritable bowel syndrome with both constipation and diarrhea K58.2 Active 48136167 Problem Constipation by delayed colonic transit K59.01 Active 89443350 Problem Left foot pain M79.672 Active 51929276 Problem GERD without esophagitis K21.9 Active 655854713 Problem Chronic diarrhea K52.9 Active 241672311 Problem Gastric pain R10.9 Active 663222728 Problem Gastroparesis K31.84 Active 680685691 ALLERGIES No Information ENCOUNTERS Encounter Location Date Diagnosis [facility] [id number] [id number] December, [id number] [place] [address] [id number] Oct, Other chronic pain G89.29 ; Anxiety F41.9 and Diabetic polyneuropathy associated with type 2 diabetes mellitus E11.42 [id number] [place] [address] [id number] Oct, Neutrophilia D72.9 [id number] [place] [address] [id number] Sep, Neutrophilia D72.9 ; Lymphocytosis D72.820 and Leukocytosis, unspecified type D72.829 [address] [place] [address] [id number] Sep, Leukocytosis, unspecified type D72.829 ; Vaginal discharge N89.8 ; Cramp of toe R25.2 ; Sleep apnea in adult G47.30 ; Diabetic polyneuropathy associated with type 2 diabetes mellitus E11.42 ; Anxiety F41.9 ; Other chronic pain G89.29 ; Acquired hypothyroidism E03.9 ; Gastroparesis K31.84 ; PTSD (post- traumatic stress disorder) F43.10 ; Sinus congestion R09.81 and BMI 40.0-44.9, adult Z68.[address] [place] [address] [id number] 14 Sep, 2017 Syncope, unspecified syncope type [...] R09.89 and Swelling of lower extremity M79.[id number] [place] [address] [id number] Aug, Carbuncle and furuncle of buttock L02.33 ; Radicular pain of lower extremity M54.10 ; Mixed stress and urge urinary incontinence N39.46 ; Nail ingrowing L60.0 and BMI 40.0-44.9, adult Z68.41 [address], [place] [address] Aug, [address] [place] [address] [id number] Aug, Diabetic polyneuropathy associated with type 2 diabetes mellitus E11.42 ; Anxiety F41.9 and Other chronic pain G89.[id number] [place] [address] [id number] Jul, [facility] [address] [place] [address] Jul, [address] [id number] [id number] Jul, Diabetic polyneuropathy associated with type 2 diabetes mellitus E11.42 ; Anxiety F41.9 and Other chronic pain G89.[id number] [place] [address] [id number] Jul, BMI 40.0-44.9, adult Z68.41 ; Diabetes type 2, controlled E11.9 ; Sinus congestion R09.81 ; Sore throat J02.9 ; Gastroparesis K31.84 ; Mendez''s esophagus with dysplasia K22.719 ; Lumbago with sciatica, right side M54.41 and Other chronic pain G89.29 [facility] [id number] [place] [address] Jul, [id number] [place] [address] [id number] 17 Jun, 2017 Acute non-recurrent frontal sinusitis J01.10 ; Acute diffuse otitis externa of both ears H60.313 and BMI 40.0-44.9, adult Z68.41 [id number] [place] [address] [id number] 10 Jun, 2017 Diabetic polyneuropathy associated with type 2 diabetes mellitus E11.42 ; Other chronic pain G89.29 and Anxiety F41.9 [id number] [place] [address] [id number] Jun, [id number] [place] [address] [id number] 26 Apr, 2017 Anxiety F41.9 ; Gastroparesis K31.84 ; Other chronic pain G89.29 ; PTSD ( post-traumatic stress disorder) F43.10 ; Acquired hypothyroidism E03.9 ; Diabetic polyneuropathy associated with type 2 diabetes mellitus E11.42 ; Chronic seasonal allergic rhinitis, unspecified trigger J30.2 ; Urge incontinence of urine N39.41 ; Acute diffuse otitis externa of right ear H60.311 and BMI 45.0-49.9, adult Z68.42 [id number] [place] [address] [id number] 14 Apr, 2017 Chronic seasonal allergic rhinitis, unspecified trigger J30.2 and Encounter for immunization Z23 [id number] [place] [address] [id number] 11 Apr, 2017 Diabetic polyneuropathy associated with type 2 diabetes mellitus E11.42 ; Acute pain of right knee M25.561 and Post traumatic stress disorder (PTSD) F43.10 [facility] [address] [address] Mar, [address] [id number] Mar, Well woman exam with routine gynecological exam Z01.419 ; Stress incontinence N39.3 ; High risk sexual behavior Z72.51 ; Screening breast examination Z12.31 and Nausea R11.0 [address] [id number] Mar, Other chronic pain G89.29 ; Bladder leak R32 ; Sore throat J02.9 ; Post traumatic stress disorder (PTSD) F43.10 and Acute pain of right knee M25.561 [address] [id number] Feb, [id number] [place] [address] [id number] Feb, Acquired hypothyroidism E03.9 ; Diabetic polyneuropathy associated with type 2 diabetes mellitus E11.42 ; Other chronic pain G89.29 ; Diarrhea, unspecified type R19.7 ; GERD without esophagitis K21.9 ; Post traumatic stress disorder (PTSD) F43.10 ; Intentional self-harm by blunt object, subsequent encounter X79.XXXD and Acute pain of right knee M25.561 [address] [id number] Feb, Acquired hypothyroidism E03.9 [address] [place] [address] [id number] Jan, Acquired hypothyroidism E03.9 ; Diabetic polyneuropathy associated with type 2 diabetes mellitus E11.42 ; Other chronic pain G89.29 ; Diarrhea, unspecified type R19.7 ; GERD without esophagitis K21.9 ; Post traumatic stress disorder (PTSD) F43.10 ; Intentional self-harm by blunt object, subsequent encounter X79.XXXD and Acute pain of right knee M25.561 [address] [place] [address] [id number] Jan, Acquired hypothyroidism E03.9 ; Diabetic polyneuropathy associated with type 2 diabetes mellitus E11.42 ; Other chronic pain G89.29 ; Diarrhea, unspecified type R19.7 ; GERD without esophagitis K21.9 ; Post traumatic stress disorder (PTSD) F43.10 and Intentional self-harm by blunt object, initial encounter X79.XXXA [facility] [id number] [place] [address] [id number] Jan, [address] [id number] December, PTSD (post-traumatic stress disorder) F43.10 ; Gastroparesis due to secondary diabetes E13.43 ; Chronic diarrhea K52.9 ; Non-seasonal allergic rhinitis due to pollen J30.1 and Constipation by delayed colonic transit K59.01 [facility] [id number] [place] [address] December, [facility] [id number] [place] [address] [id number] December, Diabetic polyneuropathy associated with type 2 diabetes mellitus E11.42 [id number] [place] [address] [id number] December, Diabetes type 2, uncontrolled E11.65 ; GERD without esophagitis K21.9 and PTSD (post-traumatic stress disorder) F43.10 [facility] [id number] [place] [address] [id number] Nov, Anxiety F41.9 [id number] [place] [address] [id number] Nov, Diabetic polyneuropathy associated with type 2 diabetes mellitus E11.42 [id number] [place] [address] [id number] Oct, Anxiety F41.9 [id number] [place] [address] [id number] Sep, Gastroparesis due to secondary diabetes E13.43 and Anxiety F41.9 [facility] [id number] [place] [address]- [address] Aug, [id number] [place] [address] [id number] Aug, Chronic constipation K59.09 and Diarrhea, unspecified type R19.7 [id number] [place] [address] [id number] Aug, Diabetic polyneuropathy associated with type 2 diabetes mellitus E11.42 [address] [id number] Aug, Gastroparesis K31.84 ; Diabetes type 2, uncontrolled E11.65 ; Gastric pain R10.9 ; Irritable bowel syndrome with both constipation and diarrhea K58.2 and Chronic constipation K59.00 [address] [place] [address] [id number] Aug, Dark stools R19.5 [id number] [place] [address] [id number] 10 Aug, 2016 Gastroparesis K31.84 and Chronic constipation K59.00 [id number] [place] [address] [id number] 09 Aug, 2016 Dark stools R19.5 ; Diabetes type 2, uncontrolled E11.65 ; Gastroparesis due to secondary diabetes E13.43 and Constipation by delayed colonic transit K59.01 [address] [place] [address] [id number] Aug, Anxiety F41.9 [address] [place] [address] [id number] Aug, Nausea R11.0 ; Left foot pain M79.672 ; Pain in right knee M25.561 ; Low back pain M54.5 and Other chronic pain G89.29 [address] [place] [address] [phone]- 5140 Jul, [address] [place] [address] [id number] Jul, [facility] [id number] [place] [address] [phone]- 1045 Jul, PTSD (post-traumatic stress disorder) F43.10 [id number] [place] [address] [id number] Jul, Anxiety F41.9 [facility] [address] [place] [address]23- [address]276 Jul, [address] [id number] Jul, PTSD (post-traumatic stress disorder) F43.10 [facility] [id number][place] [id number] Jul, Diabetes type 2, uncontrolled E11.65 ; Left foot pain M79.672 ; Toe pain, right M79.674 ; Low back pain M54.5 ; Other chronic pain G89.29 ; Pain in right knee M25.561 ; PTSD (post-traumatic stress disorder) F43.10 and Anxiety F41.9 [facility] [id number][place] [id number] Jul, [facility] [place] [id number] [place] [address] [id number] Jun, PTSD (post-traumatic stress disorder) F43.10 [facility] [id number][place] [id number] Jun, [facility] [address], [place] [address] Jun, [facility] [id number][place] [id number] Jun, PTSD (post-traumatic stress disorder) F43.10 [facility] [id number] [place] [address] [id number] Jun, [facility] [id number] [place] [address] [id number] Jun, Cellulitis of right lower extremity L03.115 ; Other chronic pain G89.29 ; Pain in right knee M25.561 ; Pain in left knee M25.562 and Anxiety about health F41.8 [facility] [id number][place] [id number] May, Anxiety F41.9 [facility] [id number] [place] [address] [id number] May, PTSD (post-traumatic stress disorder) F43.10 [facility] [id number], [place] [id number] May, Diabetes type 2, uncontrolled E11.65 ; Diabetic polyneuropathy associated with type 2 diabetes mellitus E11.42 ; Gastroparesis due to secondary diabetes E13.43 ; Anxiety F41.9 ; Other chronic pain G89.29 ; Pain in right knee M25.561 ; Pain in left knee M25.562 ; Acquired hypothyroidism E03.9 and Chronic constipation K59.00 [facility] [address], [place] [address] May, [facility] [place] [id number] [place] [address] [id number] May, [facility] [id number] [place] [address] [id number] Apr, [facility] [id number] [place] [address] [id number] Apr, [facility] [id number] [place] [address]- [address] Apr, [facility] [id number] [place] [address] [id number] Apr, [facility] [id number] [place] [address] 52194- 6004 Apr, [facility] [id number] [place] [address] [id number] Apr, Diabetes type 2, uncontrolled E11.65 ; Diabetic polyneuropathy associated with type 2 diabetes mellitus E11.42 ; Gastroparesis due to secondary diabetes E13.43 and Encounter for immunization Z23 [facility] [id number] [place] [address] [id number] Apr, Gastroparesis K31.84 and Diabetes type 2, controlled E11.9 [facility] [place] [address] [id number] [id number] Mar, Diabetes type 2, controlled E11.9 ; Chronic constipation K59.00 and Gastroparesis K31.84 [facility] [place] [id number] [place] [address] [id number] Mar, [facility] [place] [id number] [place] [address] [id number] Mar, Diabetes type 2, controlled E11.9 [facility] [place] [address] [id number] [place] [id number] Mar, [facility] [place] [address] [id number] [place] [id number] Feb, [facility] [place] [address] [id number] [place] [id number] Feb, [facility] [place] [address] [id number] [place] [id number] Feb, Diabetes type 2, controlled E11.9 [facility] [place] [address] [id number] [place] [id number] Feb, [facility] [place] [address] [id number] [place] [id number] Jan, [facility] [place] [address] [id number] [place] [id number] Jan, [facility] [place] [address] [id number] [place] [id number] Jan, Diabetes type 2, controlled E11.9 [facility] [place] [address] [id number] [place] [id number] December, [facility] [place] [address] [id number] [place] [id number] December, Diabetes type 2, uncontrolled E11.65 and Diabetes type 2, controlled E11.9 [facility] [place] [address] [id number] [place] [id number] December, [facility] [place] [address] [id number] [place] [id number] Nov, Wound of toenail, subsequent encounter S91.209D and Plantar fascia syndrome M72.2 [facility] [place] [address] [id number] [id number] Nov, Ingrown toenail L60.0 [facility] [place] [id number] [place] [address] [id number] Nov, Wound of toenail, subsequent encounter S91.209D [facility] [place] [address] [id number][place] [phone] Nov, Tinea unguium B35.1 and Ingrowing nail L60.0 [facility] [place] [id number] [place] [address] [id number] 18 Nov, 2015 Ingrown toenail L60.0 [facility] [place] [id number] [place] [address] [id number] 15 Nov, 2015 Cellulitis of right lower extremity L03.115 [facility] [place] [id number] [place] [address] [id number] Nov, Ingrown toenail L60.0 and Diabetes type 2, controlled E11.9 [facility] [place] [id number] [place] [address] [id number] Oct, [facility] [place] [id number] [place] [address] [id number] Oct, Anxiety F41.9 [facility] [place] [id number] [place] [address] [id number] Sep, [facility] [place] [id number] [place] [address] [id number] Sep, Elevated white blood cell count D72.829 and Multiple joint pain M25.50 [facility] [place] [id number] [place] [address] [id number] Sep, Diabetes type 2, uncontrolled E11.65 ; Onychomycosis B35.1 ; Skin candidiasis B37.2 and Anxiety F41.9 [facility] [id number] [place] [address] [id number] Aug, [facility] [place] [id number] [place] [address] [id number] Aug, [facility] [place] [id number] [place] [address] [id number] Jul, Diabetes type 2, uncontrolled E11.65 [facility] [place] [id number] [place] [address] [id number] Jul, [facility] [place] [id number] [place] [address] [id number] Jul, Diabetes type 2, uncontrolled E11.65 [facility] [place] [id number] [place] [address] [id number] Jul, [facility] [id number] [place] [address] [id number] Jun, [facility] [address] [facility] [id number], [place] [phone] Jun, [address] [place] [address] [id number] Jun, Diabetes type 2, uncontrolled E11.65 ; Chronic constipation K59.00 and Anxiety F41.9 [address] [address] [facility] [id number][place] [phone] Jun, Plantar fascia syndrome M72.2 [facility] [address] [place] [address] [id number] May, [address] [place] [address] [id number] May, [address] [place] [address] [id number] May, Encounter for immunization Z23 ; Diabetes type 2, uncontrolled E11.65 and Depression with anxiety F41.[address] [place] [address] [id number] Apr, Chronic constipation 564.00 ; Insomnia, unspecified 780.52 ; Diabetes mellitus, type 2 250.00 ; PTSD (post-traumatic stress disorder) 309.81 and Anxiety and depression 300.00 [facility] [address] [facility] [id number] [id number] Apr, [id number] [id number] Apr, Anxiety and depression 300.00 and PTSD (post-traumatic stress disorder) 309.81 [facility] 120 [facility] [id number][place] [id number] Mar, [address] [place] [address] [id number] Mar, Follow up V67.9 ; Social anxiety disorder 300.23 and Acid reflux 530.81 [facility] [address]005[address]100[place] [id number] Feb, [id number] [id number] Feb, [address] [id number], [place] [id number] Feb, [facility] [place] [id number], [place] [id number] Feb, [facility] [address] [id number], [place] [address] Feb, [facility] [place] [id number], [place] [id number] Feb, Unspecified hereditary and idiopathic peripheral neuropathy 356.9 ; Heartburn 787.1 ; Uncontrolled type 2 diabetes with neuropathy 250.62 ; Otitis externa 380.10 and HEP B (ADULT) DX V05.3 [facility] [place] [id number] [place] [address] [id number] Jan, [facility] [place] [id number] [place] [address] [id number] December, [facility] [id number] [place] [address] 95662- 7276 Nov, [facility] [address] [place] [address] 76296- 5231 Nov, [facility] [id number] [place] [address] 03917- [phone] Oct, [facility] [address] [id number], [place] [address]- 6782 Oct, [facility] [place] [id number], [place] [id number] Oct, [facility] [address]00565100[place], [place] [address]- 4[address] Oct, [facility] [id number] [place] [address] 83503- 4980 Oct, [facility] [address]005[address]100[place], [place] [address]- 2626 Oct, [facility] [place] [id number] [id number] Oct, [facility] [address] [id number] [address] Oct, [facility] [address] [facility] [id number] [place] [id number] Oct, [facility] [address] [facility] [id number], [place] [address] Oct, [facility] [address] [id number] [place] [id number] Oct, [facility] [address] [facility] [id number] [id number] Oct, [facility] [address] [facility] [id number], [place] [address] Oct, [facility] [address] [facility] [id number], [place] [address] Oct, [facility] [address] [id number] [id number] Oct, [facility] [id number], [place] [address] Oct, [facility] [address] [id number], [place] [address] Sep, [facility] [address] [id number] [address] Sep, [facility] [address] [id number] [address] Sep, [facility] [place] [facility] [id number], [place] [address] Sep, [facility] [place] [facility] [address] [id number], [place] [address] Sep, [facility] [place] [facility] [address] [facility] [id number], [place] [address] Sep, [facility] [place] [facility] [address] [facility] [id number], [place] [address] Aug, [facility] [address] [id number] [id number] Aug, [facility] [place] [facility] [address] [id number] [place] [address] Aug, [facility] [place] [facility] [address] [id number], [place] [address] Aug, [facility] [address] [id number][place] [address] Aug, [facility] [place] [facility] [address] [facility] [id number], [place] [address] Aug, [facility] [place] [facility] [address] [facility] [id number] [place] [address] Aug, [facility] [place] [facility] [address] [id number], [place] [address] Aug, [facility] [address] [facility] [id number][place] [address] Aug, [facility] [address] [facility] [id number][place] [address] Aug, [facility] [place] [facility] [address] [facility] [id number], [place] [address] Aug, [facility] [place] [facility] [address] [facility] [id number], [place] [address] 9[address] Aug, [facility] [address] [id number][place] [address] Jul, [facility] [place] [facility] [address] [facility] [id number], [place] [address] Jul, [facility] [address] [id number][place] [address] Jun, [facility] [place] [facility] [address] [id number], [place] [address] 27[address] Jun, [facility] [address] [facility] [id number][place] [id number] Jun, [facility] [place] [facility] [address] [facility] [id number], [place] [address] Jun, [facility] [address] [id number][place] [address] Jun, [facility] [place] [facility] [address] [facility] [id number] [place] [address]- 8041 Jun, [facility] [place] [facility] [address] [facility] [id number] [place] [address]- 3976 May, [facility] [place] [facility] [address] [facility] [id number] [place] [address] May, [facility] [address] [facility] [id number][place] [id number] May, [facility] [place] [facility] [address] [facility] [id number] [place] [address] 3181 May, [facility] [address] [facility] [id number], [place] [address] Apr, [facility] [place] [facility] [id number], [place] [address] Apr, [facility] [address] [id number][place] [address] Apr, [facility] [address] [facility] [id number], [place] [address] Apr, [facility] [place] [facility] [address] [facility] [id number], [place] [address]- 9465 Apr, [facility] [place] [facility] [address] [facility] [id number], [place] [address]- 9867 Apr, [facility] [address] [id number], [place] [address] Apr, [facility] [place] [facility] [address] [facility] [id number], [place] [address]- 4164 Apr, [facility] [address] [facility] [id number][place] [address] Apr, [facility] [place] [facility] [address] [facility] [id number] [place] [address]- [address]248 Apr, [facility] [address] [facility] [id number], [place] [id number] Feb, [facility] [place] [facility] [address] [facility] [id number] [place] [address]- 0992 Feb, [facility] [address] [id number] [place] [id number] Feb, [facility] [place] [facility] [address] [facility] [id number] [place] [address]- 9638 Feb, [facility] [place] [facility] [address] [facility] [id number] [place] [address]- 4264 Jan, [facility] [place] [facility] [address] [facility] [id number] [place] [address]- 9062 Jan, [facility] [place] [facility] [address] [facility] [id number] [place] [address]- [address] Jan, [facility] [address] [facility] [id number] [place] [address] Jan, [facility] [place] [facility] [address] [facility] [id number] [place] [address]- 6092 Jan, [facility] [place] [facility] [address] [facility] [id number] [place] [address]- 0952 Jan, [facility] [address] [id number] [place] [id number] Jan, [facility] [place] [facility] [address] [facility] [id number], [place] [address]387 Jan, [facility] [address] [id number] [place] [address] December, [facility] [place] [facility] [address] [facility] [id number], [place] [address] 2546 December, [facility] [address] [id number] [place] [id number] December, [facility] [address] [id number] [place] [id number] December, [facility] [address] [id number] [place] [address] December, [facility] [place] [facility] [address] [facility] [id number] [place] [address] 254 December, [facility] [address] [id number] [place] [address]- 2546 December, [facility] [place] [facility] [address] [facility] [id number] [place] [address]- 2546 December, [facility] [place] [address] [facility] [id number], [place] [address] Nov, [facility] [place] [facility] [address] [facility] [id number] [place] [address]- 2546 Nov, [facility] [address] [facility] [id number][place] [address] Oct, [facility] [place] [facility] [address] [facility] [id number] [place] [address]- 2546 Oct, [facility] [place] [facility] [address] [facility] [id number], [place] [address]- [address] Sep, [facility] [place] [facility] [id number] [address] Sep, [facility] [address] [facility] [id number][place] [address] Aug, [facility] [address] [facility] [id number], [place] 414609377 Aug, [facility] [place] [facility] [address] [id number], [place] [address]6 Aug, [facility] [place] [facility] [address] [facility] [id number], [place] [address]- 8836 Aug, [facility] [address] [facility] [id number], [place] [address] Jul, [facility] [place] [facility] [address] [id number], [place] [address]- 2546 Jul, [facility] [address] [facility] [id number], [place] [id number] Jul, [facility] [place] [facility] [address] [facility] [id number], [place] [address]- 2546 Jul, [facility] [address] [facility] [id number], [place] [address]594153 Jun, [facility] [address] [id number] [place] [address]- 4359 Jun, [facility] [address] [id number] [place] [address] Apr, [facility] [address] [id number] [place] [id number] Mar, [facility] [place] [address] [id number] [place] [id number] Mar, [facility] [place] [address] [id number] [place] [address] Mar, [facility] [place] [address] [id number] [place] [address] Mar, [facility] [address] [id number] [place] [address] Feb, [facility] [address] [id number] [place] [address] Jan, [facility] [address] [id number] [place] [address] Jan, [facility] [address] [id number] [place] [address] Jan, [facility] [address] [id number] [place] [address] Jan, [facility] [address] [id number] [place] [address] December, [facility] [address] [id number] [place] [address]25[address] December, [facility] [address] [id number] [place] [address] December, [facility] [address] [facility] [id number] [place] [address]- 1849 Jul, [facility] [address] [id number] [place] [address] Jul, [facility] [address] [id number] [place] [address] Jul, [facility] [address] [id number][place] [address] Jul, [facility] [address] [id number] [place] [address] Jul, [facility] [place] [facility] [address] [id number] [place] [address]- 3756 Jul, [facility] [place] [facility] [address] [id number] [place] [address]- 6301 Jul, [facility] [place] [facility] [address] [id number] [place] [address]- 0723 Jul, [facility] [address] [id number] [place] [id number] Jun, [facility] [place] [facility] [address] [id number] [place] [address] Jun, [facility] [place] [facility] [address] [id number] [place] [address]- 4874 Jul, [facility] [place] [facility] [address] [id number] [place] [address]- 9301 Jul, [facility] [place] [facility] [address] [id number] [place] [address]- 9619 Jul, [facility] [place] [facility] [address] [id number] [place] [address]- 5444 Jul, [facility] [place] [facility] [address] [id number] [place] [address]- 3189 Jun, [facility] [place] [facility] [address] [id number], [place] [address]- 1075 Jun, [facility] [place] [facility] [address] [id number] [place] [address]012 Jun, [facility] [place] [facility] [address] [id number] [place] [address]248 Jun, [facility] [place] [facility] [address] [id number] [place] [address]70 Jun, [facility] [place] [facility] [address] [id number], [place] [address]- 9968 27 May, 2010 [facility] [address] [facility] [id number], [place] [address]- 5866 19 May, 2010 [facility] [address] [facility] [id number], [place] 552025- 8296 13 May, 2010 [facility] [address] [facility] [id number], [place] [address]- 6526 13 May, 2010 [facility] [address] [facility] [id number], [place] [address] 2541 16 Nov, 2009 [facility] [address] [facility] [id number], [place] [address]- 8659 Jul, [facility] [address] [facility] [id number], [place] 147854- 8232 Jun, [facility] [address] [facility] [id number], [place] 121558- 1165 Jun, [facility] [address] [facility] [id number], [place] [address]- 8616 29 May, 2009 [facility] [address] [facility] [id number], [place] [address]- 9168 28 May, 2009 [facility] [address] [facility] [id number], [place] [address]- 0517 26 May, 2009 [facility] [address] [facility] [id number], [place] [address]- 8185 14 May, 2009 [facility] [address] [facility] [id number], [place] [address]- 4202 14 May, 2009 [facility] [address] [facility] [id number], [place] 266735- 7551 12 May, 2009 [facility] [address] [facility] [id number], [place]30309- 7471 18 Apr, 2009 [facility] [address] [facility] [id number], [place] 596963- 5663 Jan, IMMUNIZATIONS No Known Immunizations SOCIAL HISTORY Never Assessed REASON FOR VISIT RX-Clonazepam refill PLAN OF CARE VITAL SIGNS MEDICATIONS Medication Instructions Dosage Frequency Start Date End Date Duration Status Clonazepam 1 MG Orally Once a day 1.5 tabs in pm 24h Active RESULTS No Results PROCEDURES No Known [...]
[2018-02-13 11:15] LABS: BASOPHILS # (AUTO) 0.1 10^3/uL (0.0-0.1); BASOPHILS % (AUTO) 0 % (0-10); EOSINOPHILS # (AUTO) 0.3 10^3/uL (0.0-0.3); EOSINOPHILS % (AUTO) 1 % (0-10); HEMATOCRIT 41 % (35-52); HEMOGLOBIN 14.1 G/DL (11.5-16.0); LYMPHOCYTES # (AUTO) 5.1 X 10^3 (1.0-4.0); LYMPHOCYTES % (AUTO) 23 % (12-44); MEAN CORPUSCULAR HEMOGLOBIN 28 PG (25-34); MEAN CORPUSCULAR HGB CONC 34 G/DL (32-36); MEAN CORPUSCULAR VOLUME 81 FL (80-99); MEAN PLATELET VOLUME 10.1 FL (7.4-10.4); MONOCYTES # (AUTO) 1.5 X 10^3 (0.0-1.0); MONOCYTES % (AUTO) 7 % (0-12); NEUTROPHILS # (AUTO) 15.4 X 10^3 (1.8-7.8); NEUTROPHILS % (AUTO) 69 % (42-75); PLATELET COUNT 352 10^3/uL (130-400); RED BLOOD COUNT 5.09 10^6/uL (4.35-5.85); RED CELL DISTRIBUTION WIDTH 18.1 % (10.0-14.5); WHITE BLOOD COUNT 22.3 10^3/uL (4.3-11.0)
[2018-02-13] MEDS ORDERED: fentaNYL INJECTION 100 MCG/2 ML AMP IVP ONE (11:15)
[2018-02-13] MEDS ORDERED: NS IV 1000 ML 1,000 ML IV SCH (11:15)
[2018-02-13] MEDS ORDERED: IOHEXOL 350 MG/ML 100 ML (OMNIPAQUE 350) VIAL IV ONE (11:15)
[2018-02-13] MEDS ORDERED: NS 100 ML (IVPB) BAG IV ONE (11:15)
--- NOTE | 2018-02-13 11:15 | ED Abdominal Pain ---
General Stated Complaint: ABD PAIN,LEG PAIN Source of Information: Patient Exam Limitations: No Limitations History of Present Illness Date Seen by Provider: Feb 13, 2018 Time Seen by Provider: 11:13 Initial Comments to ER with 2-3 weeksof right sided abdominal pain. This initially began in the right upper quadrant about 3 weeks ago. About 2 weeks ago it moved to the right lower quadrant and seems to radiate into the right thigh. That 3 days ago she started having difficulty with urination. She reports she has gastroparesis and irritable bowel so she has constipation. She has not had a bowel movement in about 3 days but this is not unusual for her. No nausea or vomiting but she does report a poor appetite. No fevers or chills. She has had no relief from Tylenol Motrin or Ultram at home. She had an abdominal ultrasound today done in the outpatient setting and was referred to the emergency room due to her severe pain. [facility]. Additionally, She's been seeing Dr Israel from hematology in regards to leukocytosis for the past few weeks. Timing/Duration: Getting Worse, Intermittent Severity/Quality: Moderate Location: RUQ, RLQ, Suprapubic Radiation: No Radiation Activities at Onset: None Associated Symptoms: Back Pain (chronic and not a new finding); No Fever/Chills , No Nausea/Vomiting Allergies and Home Medications Allergies Coded Allergies: sulfamethizole (Verified Allergy, Severe, ANAPHYLAXIS, 02/13/18) ibuprofen (Verified Adverse Reaction, Mild, GI UPSET, 02/13/18) Home Medications Acetaminophen/Diphenhydramine 1 Each Tablet, 1 TAB PO HS PRN for PAIN-MILD, ( Reported) Buspirone HCl 10 Mg Tablet, 10 MG PO BID, (Reported) Cyclobenzaprine HCl 5 Mg Tablet, 5 MG PO BID PRN for MUSCLE SPASMS, (Reported) Diclofenac Sodium 100 Gm Gel..gram., TOP BID PRN for JOINT PAIN, (Reported) Dulaglutide 1.5 Mg/0.5 Ml Pen.injctr, 1.5 MG SQ Fr, (Reported) Escitalopram Oxalate 20 Mg Tablet, 20 MG PO DAILY, (Reported) Fluticasone Propionate 16 Gm [place].susp, 1 SPRAY NS DAILY, (Reported) Hydroxyzine HCl 50 Mg Tablet, 25 MG PO 0800,1200, (Reported) TAKES 1/2 (50MG) TABLET Hydroxyzine HCl 50 Mg Tablet, 50 MG PO HS, (Reported) Lansoprazole 30 Mg Capsule.dr, 30 MG PO HS, (Reported) Levothyroxine Sodium 50 Mcg Tablet, 50 MCG PO DAILY, (Reported) Linaclotide 145 Mcg Capsule, 145 MCG PO DAILY, (Reported) Lisinopril 2.5 Mg Tablet, 2.5 MG PO DAILY, (Reported) Lorazepam 0.5 Mg Tablet, 0.5 MG PO BID PRN for ANXIETY, (Reported) Melatonin 5 Mg Capsule, 5 MG PO HS PRN for SLEEP, (Reported) Meloxicam 7.5 Mg Tablet, 7.5 MG PO BID, (Reported) Menthol 118 Ml Gel..ml., TP QID PRN for MUSCLE PAIN, (Reported) Montelukast Sodium 10 Mg Tablet, 10 MG PO HS, (Reported) Ondansetron HCl 8 Mg Tablet, 8 MG PO DAILY PRN for NAUSEA/VOMITING-1ST LINE, ( Reported) Pantoprazole Sodium 40 Mg Tablet.dr, 40 MG PO HS, (Reported) Polyethylene Glycol 3350 17 Gm Powd.pack, 17 GM PO BID PRN for CONSTIPATION-2ND LINE, (Reported) Pregabalin 150 Mg Capsule, 150 MG PO TID, (Reported) Promethazine HCl 25 Mg Tablet, 25 MG PO TID PRN for NAUSEA/VOMITING-2ND LINE, ( Reported) Solifenacin Succinate 10 Mg Tablet, 10 MG PO DAILY, (Reported) Sucralfate 1 Gm Tablet, 1 GM PO BID, (Reported) Tramadol HCl 50 Mg Tablet, 50 MG PO BID PRN for PAIN-MODERATE, (Reported) Patient Home Medication List Home Medication List Reviewed: Yes Review of Systems Constitutional: see HPI; No chills, No fever EENTM: No Symptoms Reported Respiratory: No Symptoms Reported Cardiovascular: No Symptoms Reported Gastrointestinal: See HPI, Abdominal Pain, Constipated; Denies Diarrhea, Denies Nausea, Denies Vomiting Genitourinary: See HPI, Other (hesitancy) Musculoskeletal: see HPI, back pain Skin: no symptoms reported Psychiatric/Neurological: No Symptoms Reported Endocrine: No Symptoms Reported Past Dekvtyw-Grxtqp-Zxhcxj Hx Patient Social History Type Used: Cigarettes Former Smoker, Quit: Mar 11, 2012 Recent Foreign Travel: No Contact w/Someone Who Travel: No Recent Hopitalizations: No Immunizations Up To Date Tetanus Booster (TDap): Unknown Date of Influenza Vaccine: Apr 19, 2017 Seasonal Allergies Seasonal Allergies: Yes Past Medical History Adenoidectomy Sleep Apnea Currently Using 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, 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) Currently Using BIPAP: No Neuropathy 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 Sexually Transmitted Disease: No HIV/AIDS: No Gastroesophageal Reflux, Mendez's Esophagus, Esophagitis, Irritable Bowel Arthritis, Chronic Back Pain Hypothyroidsim, Diabetes, Non-Insulin dep Loss of Vision: Bilateral Hearing Impairment: Denies Anxiety, PTSD, Depression Adverse Reaction/Blood Tranf: No Physical Exam Vital Signs Vital Signs - First Documented 02/13/18 10:55 Temp 98.9 Pulse 107 Resp 16 B/P (MAP) 151/81 (104) Pulse Ox 96 O2 Delivery Room Air O2 Flow Rate 0 Capillary Refill : Height/Weight/BMI Height: 5', 2.00" Weight: 230lbs 0.0oz, [id number] Method: ,42.1BMI General Appearance: WD/WN, no apparent distress, obese HEENT: PERRL/EOMI, normal ENT inspection Neck: non-tender, full range of motion Respiratory: normal breath sounds, no respiratory distress, no accessory muscle use Cardiovascular: regular rate, rhythm, no murmur Gastrointestinal: normal bowel sounds, soft, tenderness (diffusely but mostly on the right lower quadrant) Extremities: normal range of motion, non-tender Neurologic/Psychiatric: alert, normal mood/affect, oriented x 3 Skin: normal color, warm/dry Progress/Results/Core Measures Results/Orders Lab Results Laboratory Tests Test 02/13/18 11:10 02/13/18 12:25 Range/Units White Blood Count 22.3 H 4.3-11.0 10^3/uL Red Blood Count 5.09 4.35-5.85 10^6/uL Hemoglobin 14.1 11.5-16.0 G/DL Hematocrit 41 35-52 % Mean Corpuscular Volume 81 80-99 FL Mean Corpuscular Hemoglobin 28 25-34 PG Mean Corpuscular Hemoglobin Concent 34 32-36 G/DL Red Cell Distribution Width 18.1 H 10.0-14.5 % Platelet Count 352 130-400 10^3/uL Mean Platelet Volume 10.1 7.4-10.4 FL Neutrophils (%) (Auto) 69 42-75 % Lymphocytes (%) (Auto) 23 12-44 % Monocytes (%) (Auto) 7 0-12 % Eosinophils (%) (Auto) 1 0-10 % Basophils (%) (Auto) 0 0-10 % Neutrophils # (Auto) 15.4 H 1.8-7.8 X 10^3 Lymphocytes # (Auto) 5.1 H 1.0-4.0 X 10^3 Monocytes # (Auto) 1.5 H 0.0-1.0 X 10^3 Eosinophils # (Auto) 0.3 0.0-0.3 10^3/uL Basophils # (Auto) 0.1 0.0-0.1 10^3/uL Neutrophils % (Manual) 71 % Lymphocytes % (Manual) 22 % Monocytes % (Manual) 5 % Eosinophils % (Manual) 2 % Anisocytosis SLIGHT Stomatocytes SLIGHT Blood Morphology Comment SEE NOTE Sodium Level 136 135-145 MMOL/L Potassium Level 5.1 H 3.6-5.0 MMOL/L Chloride Level 107 98-107 MMOL/L Carbon Dioxide Level 18 L 21-32 MMOL/L Anion Gap 11 5-14 MMOL/L Blood Urea Nitrogen 19 H 7-18 MG/DL Creatinine 1.03 0.60-1.30 MG/DL Estimat Glomerular Filtration Rate 57 BUN/Creatinine Ratio 18 Glucose Level 195 H 70-105 MG/DL Calcium Level 10.1 8.5-10.1 MG/DL Total Bilirubin 0.4 0.1-1.0 MG/DL Aspartate Amino Transf (AST/SGOT) 13 5-34 U/L Alanine Aminotransferase (ALT/SGPT) 8 0-55 U/L Alkaline Phosphatase 131 40-136 U/L Total Protein 7.8 6.4-8.2 GM/DL Albumin 4.3 3.2-4.5 GM/DL Lipase 32 8-78 U/L Serum Test, Qualitative NEGATIVE NEGATIVE Urine Color YELLOW Urine Clarity CLEAR Urine pH 5 5-9 Urine Specific Orient 1.025 H 1.016-1.022 Urine Protein 2+ H NEGATIVE Urine Glucose (UA) NEGATIVE NEGATIVE Urine Ketones NEGATIVE NEGATIVE Urine Nitrite NEGATIVE NEGATIVE Urine Bilirubin NEGATIVE NEGATIVE Urine Urobilinogen NORMAL NORMAL MG/DL Urine Leukocyte Esterase 2+ H NEGATIVE Urine RBC (Auto) 4+ H NEGATIVE Urine RBC NONE /HPF Urine WBC 5-10 H /HPF Urine Squamous Epithelial Cells 10-25 H /HPF Urine Crystals NONE /LPF Urine Bacteria TRACE /HPF Urine Casts NONE /LPF Urine Mucus NEGATIVE /LPF Urine Culture Indicated NO My Orders Orders - KATIE HERBERT APRN Cbc With Automated Diff (02/13/18 11:00) Comprehensive Metabolic Panel (02/13/18 11:00) Ua Culture If Indicated (02/13/18 11:00) Lipase (02/13/18 11:00) Hcg,Qualitative Serum (02/13/18 11:00) Iv Heplock-Insert (Order) (02/13/18 11:00) Fentanyl Injection (Sublimaze Injection (02/13/18 11:15) Ns Iv 1000 Ml (Sodium Chloride 0.9%) (02/13/18 11:15) Ct Abd/Pelv W (Appendicitis) (02/13/18 11:11) Iohexol Injection (Omnipaque 350 Mg/Ml 1 (02/13/18 11:15) Ns (Ivpb) (Sodium Chloride 0.9% Ivpb Bag (02/13/18 11:15) Manual Differential (02/13/18 11:10) Morphine Injection (Morphine Injection (02/13/18 12:30) Medications Given in ED Current Medications Medications Dose Ordered Sig/Lali Route Start Time Stop Time Status Last Admin Dose Admin Fentanyl Citrate 75 mcg ONCE ONCE IVP 02/13/18 11:15 02/13/18 11:16 DC 02/13/18 11:30 75 MCG Iohexol 100 ml ONCE ONCE IV 02/13/18 11:15 02/13/18 11:19 DC 02/13/18 12:04 100 ML Morphine Sulfate 5 mg ONCE ONCE IVP 02/13/18 12:30 02/13/18 12:31 DC 02/13/18 12:29 5 MG Sodium Chloride 100 ml ONCE ONCE IV 02/13/18 11:15 02/13/18 11:19 DC 02/13/18 12:04 100 ML Vital Signs/I&O 02/13/18 10:55 Temp 98.9 Pulse 107 Resp 16 B/P (MAP) 151/81 (104) Pulse Ox 96 O2 Delivery Room Air O2 Flow Rate 0 Diagnostic Imaging Diagonstic Imaging: CT Comments NAME: DALI FIGUEROA MED REC#: [id number] PT STATUS: REG ER : 1970 PHYSICIAN: KATIE HERBERT MIXER HELPER ADMIT DATE: 02/13/18/ER Draft Date of Exam:02/13/18 CT ABD/PELV W (APPENDICITIS) PROCEDURE: CT abdomen and pelvis with contrast, rule out appendicitis. TECHNIQUE: Multiple contiguous axial images were obtained through the abdomen and pelvis after the administration of intravenous contrast. INDICATION: Right lower quadrant pain, increasing in severity. COMPARISON: No prior studies are available for comparison. FINDINGS: Imaging through the lung bases does show innumerable noncalcified pulmonary nodules. While this could potentially be on infectious/inflammatory basis, possibility of metastatic disease cannot be entirely excluded. No discrete liver mass is detected. The gallbladder contains a tiny calcification, likely a small gallstone. The pancreas and spleen are unremarkable. Right adrenal gland is unremarkable. There is a mixed density mass with peripheral calcification involving the left adrenal gland measuring 5.6 cm AP x 4.6 cm transverse. The kidneys are unremarkable. Aorta is non-aneurysmal. Small and large bowel loops are of normal caliber. The appendix is visualized and unremarkable. There is a cyst in the left adnexa measuring 3.4 cm, likely ovarian. There is enlargement and heterogeneity to the uterus. Uterus appears to contain a large low-density mass approximately 6 cm in size and suggestive of a fibroid. There is a small amount of free fluid present. The bladder is unremarkable. No definite pelvic lymphadenopathy is seen. There are small lymph nodes in the central retroperitoneum, nonspecific. No mesenteric lymphadenopathy is identified. IMPRESSION: 1. Numerous bilateral subcentimeter pulmonary nodules, indeterminate. This could be infectious/inflammatory, however metastatic disease cannot be excluded. 2. Mixed density mass involving the left adrenal gland with peripheral calcification. This could potentially be secondary to prior adrenal hemorrhage. MRI abdomen on nonemergent basis may be useful for further characterization. 3. Enlarged uterus containing multiple masses suggestive of uterine fibroids. 4. A 3.4 cm left ovarian cyst. 5. No CT evidence of acute appendicitis. Dictated on workstation # [id number] Dict: 02/13/18 1226 Trans: 02/13/[address] [place] [id number] Interpreted by: EBONY CASTELLANOS MD Electronically signed by: Departure Communication (Admissions) Time/Spoke to Admitting Phy: 13:07 1305- given the leukocytosis and the abdominal pain I spoke with Dr. Chandler. We will admit the patient observation to him, tentatively planned to do a cholecystectomy tomorrow. Her pain in the emergency room has required 75 g of fentanyl with minimal improvement and then 5 mg of morphine with moderate improvement. In reviewing some of her old charts it does look like she has a history of some chronic pain issues. Impression Primary Impression: Cholelithiasis Additional Impressions: Leukocytosis Right sided abdominal pain Disposition: ADMITTED INPATIENT Condition: Stable Admissions Decision to Admit Reason: Admit from ER (General) Decision to Admit/Date: Feb 13, 2018 Time/Decision to Admit Time: 13:07 Departure-Patient Inst. Referrals: [facility] (PCP/Family) Primary Care Physician KATIE HERBERT APRN Feb 13, 2018 11:15
[2018-02-13 11:33] LABS: ALBUMIN 4.3 GM/DL (3.2-4.5); BILIRUBIN,TOTAL 0.4 MG/DL (0.1-1.0); CALCIUM 10.1 MG/DL (8.5-10.1); CREATININE SERUM 1.03 MG/DL (0.60-1.30); POTASSIUM 5.1 MMOL/L (3.6-5.0); TOTAL PROTEIN 7.8 GM/DL (6.4-8.2)
[2018-02-13 11:51] LABS: EOSINOPHILS % (MANUAL) 2 %; LYMPHOCYTES % (MANUAL) 22 %; MONOCYTES % (MANUAL) 5 %; NEUTROPHILS % (MANUAL) 71 %
[2018-02-13 11:52] LABS: STOMATOCYTES SLIGHT
[2018-02-13 11:53] LABS: ANISOCYTOSIS SLIGHT
[2018-02-13] MEDS ORDERED: morphine INJ 10 MG/ML 1ML (SYR OR VIAL) IVP ONE (12:30)
[2018-02-13 12:38] LABS: BILIRUBIN,URINE NEGATIVE (NEGATIVE); CLARITY,URINE CLEAR; COLOR,URINE YELLOW; GLUCOSE, URINE (UA) NEGATIVE (NEGATIVE); KETONES,URINE NEGATIVE (NEGATIVE); LEUKOCYTE ESTERASE ,URINE 2+ (NEGATIVE); NITRITE,URINE NEGATIVE (NEGATIVE); PH,URINE 5 (5-9); PROTEIN,URINE 2+ (NEGATIVE); UROBILINOGEN,URINE NORMAL (NORMAL)
[2018-02-13 12:49] LABS: BACTERIA,URINE TRACE /HPF
--- NOTE | 2018-02-13 12:58 | Diagnostic Imaging Report ---
PROCEDURE: CT abdomen and pelvis with contrast, rule out appendicitis. TECHNIQUE: Multiple contiguous axial images were obtained through the abdomen and pelvis after the administration of intravenous contrast. INDICATION: Right lower quadrant pain, increasing in severity. COMPARISON: No prior studies are available for comparison. FINDINGS: Imaging through the lung bases does show innumerable noncalcified pulmonary nodules. While this could potentially be on infectious/inflammatory basis, possibility of metastatic disease cannot be entirely excluded. No discrete liver mass is detected. The gallbladder contains a tiny calcification, likely a small gallstone. The pancreas and spleen are unremarkable. Right adrenal gland is unremarkable. There is a mixed density mass with peripheral calcification involving the left adrenal gland measuring 5.6 cm AP x 4.6 cm transverse. The kidneys are unremarkable. Aorta is non-aneurysmal. Small and large bowel loops are of normal caliber. The appendix is visualized and unremarkable. There is a cyst in the left adnexa measuring 3.4 cm, likely ovarian. There is enlargement and heterogeneity to the uterus. Uterus appears to contain a large low-density mass approximately 6 cm in size and suggestive of a fibroid. There is a small amount of free fluid present. The bladder is unremarkable. No definite pelvic lymphadenopathy is seen. There are small lymph nodes in the central retroperitoneum, nonspecific. No mesenteric lymphadenopathy is identified. IMPRESSION: 1. Numerous bilateral subcentimeter pulmonary nodules, indeterminate. This could be infectious/inflammatory, however metastatic disease cannot be excluded. 2. Mixed density mass involving the left adrenal gland with peripheral calcification. This could potentially be secondary to prior adrenal hemorrhage. MRI abdomen on nonemergent basis may be useful for further characterization. 3. Enlarged uterus containing multiple masses suggestive of uterine fibroids. 4. A 3.4 cm left ovarian cyst. 5. No CT evidence of acute appendicitis. Dictated by: Dictated on workstation # [id number]
[2018-02-13] MEDS ORDERED: PIPERACILLIN/TAZO 3.375 GM/D5W 100 ML IV NR ×2 (14:30)
[2018-02-13] MEDS ORDERED: CATHETER FLUSH 10 ML SYR IV PRN (14:30)
[2018-02-13] MEDS ORDERED: ONDANSETRON 4 MG/2 ML (SDV) Z0FRAN IV PRN (14:30)
[2018-02-13] MEDS ORDERED: LANS30CA PO (14:33)
[2018-02-13] MEDS ORDERED: METF850T2 PO (14:33)
[2018-02-13] MEDS ORDERED: LORA0.5T PO (14:33)
[2018-02-13] MEDS ORDERED: SOLI10TA2 PO (14:33)
[2018-02-13] MEDS ORDERED: ESCI20TA45 PO (14:33)
[2018-02-13] MEDS ORDERED: DICL100G31 TOP (14:33)
[2018-02-13] MEDS ORDERED: PANT40TA3 PO (14:33)
[2018-02-13] MEDS ORDERED: LEVO50TA6 PO (14:33)
[2018-02-13] MEDS ORDERED: LINA145C PO (14:33)
[2018-02-13] MEDS ORDERED: PROM25TA14 PO (14:33)
[2018-02-13] MEDS ORDERED: DICY20TA10 PO (14:33)
[2018-02-13] MEDS ORDERED: MELO7.5T46 PO (14:33)
[2018-02-13] MEDS ORDERED: CYCL5TAB PO (14:33)
[2018-02-13] MEDS ORDERED: HYDR50TA76 PO (14:33)
[2018-02-13] MEDS ORDERED: MONT10TA24 PO (14:33)
[2018-02-13] MEDS ORDERED: ONDA8TAB12 PO (14:33)
[2018-02-13 14:45] VITALS: BP 146/67
[2018-02-13] MEDS: fentaNYL INJECTION 100 MCG/2 ML AMP IV PRN ×4 (15:02→21:40)
[2018-02-13] MEDS: NS IV 1000 ML 1,000 ML IV SCH (15:03)
[2018-02-13] MEDS ORDERED: MELA5CAP PO (15:08)
[2018-02-13] MEDS ORDERED: MENT118G TP (15:08)
[2018-02-13] MEDS ORDERED: ACET-2469 PO (15:08)
[2018-02-13] MEDS ORDERED: POLY17PO6 PO (15:10)
[2018-02-13 15:22] LABS: BASOPHILS % (AUTO) 0 % (0-10); EOSINOPHILS # (AUTO) 0.2 10^3/uL (0.0-0.3); EOSINOPHILS % (AUTO) 1 % (0-10); HEMATOCRIT 40 % (35-52); HEMOGLOBIN 13.5 G/DL (11.5-16.0); LYMPHOCYTES # (AUTO) 3.7 X 10^3 (1.0-4.0); LYMPHOCYTES % (AUTO) 17 % (12-44); MEAN CORPUSCULAR HEMOGLOBIN 28 PG (25-34); MEAN CORPUSCULAR HGB CONC 34 G/DL (32-36); MEAN CORPUSCULAR VOLUME 81 FL (80-99); MEAN PLATELET VOLUME 10.2 FL (7.4-10.4); MONOCYTES # (AUTO) 1.3 X 10^3 (0.0-1.0); MONOCYTES % (AUTO) 6 % (0-12); NEUTROPHILS # (AUTO) 16.6 X 10^3 (1.8-7.8); NEUTROPHILS % (AUTO) 76 % (42-75); PLATELET COUNT 312 10^3/uL (130-400); RED BLOOD COUNT 4.89 10^6/uL (4.35-5.85); RED CELL DISTRIBUTION WIDTH 17.9 % (10.0-14.5); WHITE BLOOD COUNT 21.8 10^3/uL (4.3-11.0)
[2018-02-13] MEDS ORDERED: LORazepam 0.5 MG (ATIVAN) TABLET PO PRN (17:15)
[2018-02-13 17:54] LABS: AMYLASE 31 U/L (25-125); LIPASE 27 U/L (8-78)
--- NOTE | 2018-02-13 17:58 | History & Physicial ---
History of Present Illness History of Present Illness Reason for visit/HPI Right upper quadrant pain with known gallstones. Other incidental findings include a possible left adnexal cyst Date of Admission Feb 13, 2018 at 1:09 pm Date Seen by Provider: Feb 13, 2018 Time Seen by Provider: 17:57 I consulted on this patient on 02/13/18 17:53 Attending Physician Patti Saucedo MD Admitting Physician Bernabe Bermudez - [facility] Consult Allergies and Home Medications Allergies Coded Allergies: sulfamethizole (Verified Allergy, Severe, ANAPHYLAXIS, 08/11/17) ibuprofen (Verified Adverse Reaction, Mild, GI UPSET, 08/11/17) Home Medications Acetaminophen/Diphenhydramine 1 Each Tablet, 1 TAB PO HS PRN for PAIN-MILD, ( Reported) Buspirone HCl 10 Mg Tablet, 10 MG PO BID, (Reported) Cyclobenzaprine HCl 5 Mg Tablet, 5 MG PO BID PRN for MUSCLE SPASMS, (Reported) Diclofenac Sodium 100 Gm Gel..gram., TOP BID PRN for JOINT PAIN, (Reported) Dulaglutide 1.5 Mg/0.5 Ml Pen.injctr, 1.5 MG SQ Fr, (Reported) Escitalopram Oxalate 20 Mg Tablet, 20 MG PO DAILY, (Reported) Fluticasone Propionate 16 Gm [place].susp, 1 SPRAY NS DAILY, (Reported) Hydroxyzine HCl 50 Mg Tablet, 25 MG PO 0800,1200, (Reported) TAKES 1/2 (50MG) TABLET Hydroxyzine HCl 50 Mg Tablet, 50 MG PO HS, (Reported) Lansoprazole 30 Mg Capsule.dr, 30 MG PO HS, (Reported) Levothyroxine Sodium 50 Mcg Tablet, 50 MCG PO DAILY, (Reported) Linaclotide 145 Mcg Capsule, 145 MCG PO DAILY, (Reported) Lisinopril 2.5 Mg Tablet, 2.5 MG PO DAILY, (Reported) Lorazepam 0.5 Mg Tablet, 0.5 MG PO BID PRN for ANXIETY, (Reported) Melatonin 5 Mg Capsule, 5 MG PO HS PRN for SLEEP, (Reported) Meloxicam 7.5 Mg Tablet, 7.5 MG PO BID, (Reported) Menthol 118 Ml Gel..ml., TP QID PRN for MUSCLE PAIN, (Reported) Montelukast Sodium 10 Mg Tablet, 10 MG PO HS, (Reported) Ondansetron HCl 8 Mg Tablet, 8 MG PO DAILY PRN for NAUSEA/VOMITING-1ST LINE, ( Reported) Pantoprazole Sodium 40 Mg Tablet.dr, 40 MG PO HS, (Reported) Polyethylene Glycol 3350 17 Gm Powd.pack, 17 GM PO BID PRN for CONSTIPATION-2ND LINE, (Reported) Pregabalin 150 Mg Capsule, 150 MG PO TID, (Reported) Promethazine HCl 25 Mg Tablet, 25 MG PO TID PRN for NAUSEA/VOMITING-2ND LINE, ( Reported) Solifenacin Succinate 10 Mg Tablet, 10 MG PO DAILY, (Reported) Sucralfate 1 Gm Tablet, 1 GM PO BID, (Reported) Tramadol HCl 50 Mg Tablet, 50 MG PO BID PRN for PAIN-MODERATE, (Reported) Patient Home Medication List Home Medication List Reviewed: Yes Past Hvnryrp-Ufzgau-Oztjej Hx Patient Social History Marrital Status: single Employed/Student: unemployed Alcohol Use: Denies Use Recreational Drug Use: No Smoking Status: Current Everyday Smoker Former Smoker, Quit: Mar 11, 2012 Type Used: Electronic/Vapor Recent Foreign Travel: No Contact w/other who traveled: No Recent Hopitalizations: No Recent Infectious Disease Expo: No Immunizations Up To Date Tetanus Booster (TDap): Unknown Date of Influenza Vaccine: Apr 19, 2017 Seasonal Allergies Seasonal Allergies: Yes Surgeries Yes (RIGHT FOOT, SEVERAL EGD WITH DILATION, RIGHT ACL, ) Adenoidectomy Respiratory Yes 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 Using 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, 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) Currently Using BIPAP: No Cardiovascular No Neurological Yes Neuropathy Reproductive System Hx Reproductive Disorders: No Sexually Transmitted Disease: No HIV/AIDS: 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 History: Menopausal Gastrointestinal Yes Gastroesophageal Reflux, Mendez's Esophagus, Esophagitis, Irritable Bowel Musculoskeletal Yes Arthritis, Chronic Back Pain Endocrine History of Endocrine Disorders: Yes Endocrine Disorders: Hypothyroidsim, Diabetes, Non-Insulin dep HEENT Loss of Vision: Bilateral Hearing Impairment: Denies Cancer No Psychosocial History of Psychiatric Problem: Yes Behavioral Health Disorders: Anxiety, PTSD, Depression Integumentary History of Skin or Integumenta: No Blood Transfusions History of Blood Disorders: No (HX ANEMIA) Adverse Reaction to a Blood Tr: No Constitutional: see HPI EENTM: no symptoms reported Respiratory: no symptoms reported Cardiovascular: no symptoms reported Gastrointestinal: see HPI Genitourinary: other Musculoskeletal: no symptoms reported Skin: no symptoms reported Psychiatric/Neurological: Emotional Problems Physical Exam Vital Signs Vital Signs - First Documented 02/13/18 10:55 Temp 98.9 Pulse 107 Resp 16 B/P (MAP) 151/81 (104) Pulse Ox 96 O2 Delivery Room Air O2 Flow Rate 0 Capillary Refill : Less Than 3 Seconds Height, Weight, BMI Height: 5', 2.00" Weight: 230lbs 0.0oz, [id number] Method:Stated ,42.1BMI General Appearance: Mild Distress Neck: Normal Inspection Respiratory: Lungs Clear Cardiovascular: Regular Rate, Rhythm Gastrointestinal: Non Tender, Soft Extremity: Normal Inspection Neurologic/Psychiatric: Alert Skin: Warm/Dry Assessment/Plan Assessment and Plan Lady with symptomatically gallstones. Normal liver function. Offered cholecystectomy using minimally invasive technique with robotic assistance. Surgery scheduled for tomorrow. 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 Admission Diagnosis Admission Status: Observation PATTI SAUCEDO MD Feb 13, 2018 5:58 pm
[2018-02-13] MEDS ORDERED: metroNIDAZOLE 500MG/100ML IVPB 100 ML IV NR (18:00)
[2018-02-13] MEDS ORDERED: ceFAZolin 2 GM IV Premixed 50 ML IV NR (18:00)
--- NOTE | 2018-02-13 18:03 | Progress Note-Pre Operative ---
Pre-Operative Progress Note H&P Reviewed The H&P was reviewed, patient examined and no changes noted. Date Seen by Provider: Feb 13, 2018 Time Seen by Provider: 18:03 Date H&P Reviewed: Feb 13, 2018 Time H&P Reviewed: 18:03 Pre-Operative Diagnosis: Gallstones PATTI SAUCEDO MD Feb 13, 2018 6:03 pm
[2018-02-13] MEDS: MELOXICAM 7.5 MG (MOBIC) TABLET PO SCH (18:22)
[2018-02-13] MEDS: oxyCODONE/APAP 5/325MG (PERCOCET 5) TABLET PO PRN ×2 (18:50→23:10)
[2018-02-13 19:24] VITALS: BP 133/69
[2018-02-13] MEDS: PIPERACILLIN/TAZO 3.375 GM/D5W 100 ML IV SCH ×2 (20:27)
[2018-02-13] MEDS: PREGABALIN 75 MG (LYRICA) CAP PO SCH (20:28)
[2018-02-13] MEDS: busPIRone 10 MG (BUSPAR) TAB PO SCH (20:36)
[2018-02-13] MEDS ORDERED: NON-FORMULARY MEDICATION 1 EA EA (Pregabalin (Lyrica) 150 MG) PO SCH (21:00)
[2018-02-13] MEDS ORDERED: NON-FORMULARY MEDICATION 1 EA EA (Buspirone HCl 10 MG) PO SCH (21:00)
[2018-02-13] MEDS ORDERED: PANTOPRAZOLE 40 MG (PROTONIX) TAB PO SCH (21:00)
[2018-02-13] MEDS ORDERED: MONTELUKAST 10 MG (SINGULAIR) TAB PO SCH (21:00)
[2018-02-14 00:06] VITALS: BP 142/71
[2018-02-14] MEDS: NS IV 1000 ML 1,000 ML IV SCH ×3 (01:30→09:26)
[2018-02-14] MEDS: fentaNYL INJECTION 100 MCG/2 ML AMP IV PRN ×2 (04:01→08:05)
[2018-02-14 04:34] VITALS: BP 139/67
[2018-02-14] MEDS: PIPERACILLIN/TAZO 3.375 GM/D5W 100 ML IV SCH ×4 (04:58→13:00)
[2018-02-14 05:38] LABS: BASOPHILS # (AUTO) 0.1 10^3/uL (0.0-0.1); BASOPHILS % (AUTO) 0 % (0-10); EOSINOPHILS # (AUTO) 0.3 10^3/uL (0.0-0.3); EOSINOPHILS % (AUTO) 2 % (0-10); HEMATOCRIT 36 % (35-52); HEMOGLOBIN 12.5 G/DL (11.5-16.0); LYMPHOCYTES # (AUTO) 4.4 X 10^3 (1.0-4.0); LYMPHOCYTES % (AUTO) 26 % (12-44); MEAN CORPUSCULAR HEMOGLOBIN 28 PG (25-34); MEAN CORPUSCULAR HGB CONC 35 G/DL (32-36); MEAN CORPUSCULAR VOLUME 81 FL (80-99); MONOCYTES # (AUTO) 1.4 X 10^3 (0.0-1.0); MONOCYTES % (AUTO) 8 % (0-12); NEUTROPHILS # (AUTO) 10.6 X 10^3 (1.8-7.8); NEUTROPHILS % (AUTO) 64 % (42-75); PLATELET COUNT 293 10^3/uL (130-400); RED BLOOD COUNT 4.42 10^6/uL (4.35-5.85); RED CELL DISTRIBUTION WIDTH 17.5 % (10.0-14.5); WHITE BLOOD COUNT 16.7 10^3/uL (4.3-11.0)
[2018-02-14] MEDS: MELOXICAM 7.5 MG (MOBIC) TABLET PO SCH ×2 (06:20→16:00)
[2018-02-14] MEDS: TROSPIUM 20 MG (SANCTURA) TAB PO SCH ×2 (06:20→16:00)
[2018-02-14] MEDS ORDERED: LEVOTHYROXINE 50 MCG (LEVOTHROID) TAB PO SCH (06:30)
[2018-02-14 08:00] VITALS: BP 173/78
[2018-02-14] MEDS ORDERED: NON-FORMULARY MEDICATION 1 EA EA (Lisinopril 2.5 MG) PO SCH (09:00)
[2018-02-14] MEDS ORDERED: NON-FORMULARY MEDICATION 1 EA EA (Solifenacin Succinate (Vesicare) 10 MG) PO SCH (09:00)
[2018-02-14] MEDS ORDERED: lisINopril 5 MG (PRINIVIL) TABLET PO SCH (09:00)
[2018-02-14] MEDS ORDERED: FLUTICASONE NASAL SPRAY (FLONASE) 16 GM BTL NS SCH (09:00)
[2018-02-14] MEDS ORDERED: NON-FORMULARY MEDICATION 1 EA EA (Escitalopram Oxalate 20 MG) PO SCH (09:00)
[2018-02-14] MEDS: busPIRone 10 MG (BUSPAR) TAB PO SCH (09:15)
[2018-02-14] MEDS: PREGABALIN 75 MG (LYRICA) CAP PO SCH ×2 (09:30→13:00)
[2018-02-14] MEDS ORDERED: BUP/EPI 0.5% 1:200,000 (SENSORCAINE) 30 ML VIAL ONE (10:57)
[2018-02-14] MEDS ORDERED: LIDOCAINE PF 2% 5 ML (XYLOCAINE) VIAL ONE (11:24)
[2018-02-14] MEDS ORDERED: proPOfol 200 MG/20 ML (DIPRIVAN) VIAL IV ONE (11:24)
[2018-02-14] MEDS ORDERED: ONDANSETRON 4 MG/2 ML (SDV) Z0FRAN ONE (11:24)
[2018-02-14] MEDS ORDERED: MIDAZOLAM 2 MG/2 ML (VERSED) VIAL ONE (11:24)
[2018-02-14] MEDS ORDERED: fentaNYL INJECTION 100 MCG/2 ML AMP ONE ×2 (11:24→14:01)
[2018-02-14] MEDS ORDERED: SEVOFLURANE (ULTANE) 15 ML INHAL SOLN ONE ×3 (11:24→13:27)
[2018-02-14] MEDS ORDERED: ROCURONIUM 10 MG/ML 5 ML SYRINGE IV ONE ×2 (11:24→13:24)
[2018-02-14] MEDS: LACTATED RINGERS 1,000 ML IV PRN ×2 (12:20→13:20)
[2018-02-14] MEDS ORDERED: LACTATED RINGERS 1,000 ML IV SCH (12:30)
[2018-02-14] MEDS ORDERED: GLYCOPYRROLATE 0.2 MG/ML (ROBINUL) 2 ML VIAL ONE (13:24)
[2018-02-14] MEDS ORDERED: NEOSTIGMINE 1 MG/ML 5 ML SYRINGE ONE (13:24)
--- NOTE | 2018-02-14 13:58 | Operative Report ---
Operative Report Date of Procedure/Surgery Feb 14, 2018 Surgeon (s) PATTI SAUCEDO MD Refuse Collector (s): N/A Post-Operative Diagnosis Same Procedure Performed Robotic-assisted cholecystectomy Description of Procedure Anesthesia Type: General Estimated blood loss (mL): Minimal Specimen(s) collected/removed Gallbladder Description of the Procedure Indication for the procedure: This lady presented with symptomatic gallstones. Due to persistent pain, she was admitted overnight with preparations for cholecystectomy using minimally invasive technique with the robotic assistance. Informed consent was obtained after reviewing the operative details and complications of wound infection and bile leak. Description of procedure: She was placed supine on the operative table and general anesthesia induced. 2 g of Ancef and 5 mg of Flagyl were administered intravenously as prophylaxis against wound infection. Sequential compression devices were placed around her legs, to minimize the risk of venous thrombosis. Abdomen was prepared and draped in the usual sterile manner. A supraumbilical incision was made and pneumoperitoneum established using a Veress needle. Intra -abdominal pressure was maintained at 15 mmHg, using carbon dioxide insufflation. A 12 mm trocar was placed and anatomy visualized using a 30, high-definition laparoscope associated with da [place] system. Under direct view , I placed an 8 mm trocar over each side of the abdomen, followed by a 5 mm trocar over the left subcostal region. The patient was then turned into reverse Trendelenburg position, with the right side tilted up the robotic system was docked in place. The fundus of the gallbladder was retracted cephalad and the infundibulum grasped with Cadiere forceps. Peritoneum overlying Calot's triangle was incised using the hook cautery, delineating the cystic duct and artery. Both were divided between locking clips. Cholecystectomy was then completed using the hook cautery. The gallbladder was then placed in an Endo Catch bag and removed via the supraumbilical trocar site. The fascia over this incision had to be extended cephalad, to allow retrieval of the gallbladder, packed with stones. It was then closed using #1 Vicryl, in an interrupted fashion. Skin incisions were closed using 4-0 Vicryl, in a subcuticular fashion. 0.5 percent Marcaine with epinephrine was inflated along the incisions, both preemptively and at the conclusion of the operation. She tolerated the procedure well, was extubated in the operating room and taken to the recovery room in a stable condition. Findings of the Procedure See op report Allergies and Home Medications Allergies Coded Allergies: sulfamethizole (Verified Allergy, Severe, ANAPHYLAXIS, 02/13/18) ibuprofen (Verified Adverse Reaction, Mild, GI UPSET, 02/13/18) Home Medications Acetaminophen/Diphenhydramine 1 Each Tablet, 1 TAB PO HS PRN for PAIN-MILD, ( Reported) Buspirone HCl 10 Mg Tablet, 10 MG PO BID, (Reported) Cyclobenzaprine HCl 5 Mg Tablet, 5 MG PO BID PRN for MUSCLE SPASMS, (Reported) Diclofenac Sodium 100 Gm Gel..gram., TOP BID PRN for JOINT PAIN, (Reported) Dulaglutide 1.5 Mg/0.5 Ml Pen.injctr, 1.5 MG SQ Fr, (Reported) Escitalopram Oxalate 20 Mg Tablet, 20 MG PO DAILY, (Reported) Fluticasone Propionate 16 Gm [place].susp, 1 SPRAY NS DAILY, (Reported) Hydroxyzine HCl 50 Mg Tablet, 25 MG PO 0800,1200, (Reported) TAKES 1/2 (50MG) TABLET Hydroxyzine HCl 50 Mg Tablet, 50 MG PO HS, (Reported) Lansoprazole 30 Mg Capsule.dr, 30 MG PO HS, (Reported) Levothyroxine Sodium 50 Mcg Tablet, 50 MCG PO DAILY, (Reported) Linaclotide 145 Mcg Capsule, 145 MCG PO DAILY, (Reported) Lisinopril 2.5 Mg Tablet, 2.5 MG PO DAILY, (Reported) Lorazepam 0.5 Mg Tablet, 0.5 MG PO BID PRN for ANXIETY, (Reported) Melatonin 5 Mg Capsule, 5 MG PO HS PRN for SLEEP, (Reported) Meloxicam 7.5 Mg Tablet, 7.5 MG PO BID, (Reported) Menthol 118 Ml Gel..ml., TP QID PRN for MUSCLE PAIN, (Reported) Montelukast Sodium 10 Mg Tablet, 10 MG PO HS, (Reported) Ondansetron HCl 8 Mg Tablet, 8 MG PO DAILY PRN for NAUSEA/VOMITING-1ST LINE, ( Reported) Pantoprazole Sodium 40 Mg Tablet.dr, 40 MG PO HS, (Reported) Polyethylene Glycol 3350 17 Gm Powd.pack, 17 GM PO BID PRN for CONSTIPATION-2ND LINE, (Reported) Pregabalin 150 Mg Capsule, 150 MG PO TID, (Reported) Promethazine HCl 25 Mg Tablet, 25 MG PO TID PRN for NAUSEA/VOMITING-2ND LINE, ( Reported) Solifenacin Succinate 10 Mg Tablet, 10 MG PO DAILY, (Reported) Sucralfate 1 Gm Tablet, 1 GM PO BID, (Reported) Tramadol HCl 50 Mg Tablet, 50 MG PO BID PRN for PAIN-MODERATE, (Reported) Patient Home Medication List Home Medication List Reviewed: Yes PATTI SAUCEDO MD Feb 14, 2018 1:58 pm
[2018-02-14] MEDS ORDERED: ACHD5005 PO ×2 (13:59→14:03)
--- NOTE | 2018-02-14 14:02 | Discharge Inst-Simple/Standard ---
Discharge Inst-Standard Discharge Medications New, Converted or Re-Newed RX: RX on Chart Patient Instructions/Follow Up Plan of Care/Instructions/FU: Band-Aids off in 48 hours. Incentive spirometry. Follow-up in 2 weeks. Please obtain a [employer] appointment with Dr. Lucas regarding dysfunctional uterine bleeding Activity as Tolerated: Yes Discharge Diet: No Restrictions Planned Outpatient Orders/Ref. Pneu Vac Indicated: Yes PATTI SAUCEDO MD Feb 14, 2018 2:02 pm
[2018-02-14] MEDS ORDERED: morphine INJ 10 MG/ML 1ML (SYR OR VIAL) ONE (14:12)
[2018-02-14] MEDS ORDERED: HYDROmorphone 1 MG/ML (DILAUDID) 1 ML SYRINGE ONE (14:13)
--- NOTE | 2018-02-14 14:14 | Anesthesia-General Post-Op ---
General Patient Condition Mental Status/LOC: Same as Preop Cardiovascular: Satisfactory Nausea/Vomiting: Absent Respiratory: Satisfactory Pain: Controlled Complications: Absent Post Op Complications Complications None Follow Up Care/Instructions Patient Instructions None needed. Anesthesia/Patient Condition Patient Condition Patient is doing well, no complaints, stable vital signs, no apparent adverse anesthesia problems. No complications reported per nursing. LAURY COLLIER CRNA Feb 14, 2018 14:14
[2018-02-14] MEDS ORDERED: ONDANSETRON 4 MG/2 ML (SDV) Z0FRAN IVP PRN (14:15)
[2018-02-14] MEDS: morphine INJ 10 MG/ML 1ML (SYR OR VIAL) IVP PRN ×2 (14:18→14:24)
[2018-02-14] MEDS: HYDROmorphone 1 MG/ML (DILAUDID) 1 ML SYRINGE IV PRN ×2 (14:34→14:44)
[2018-02-14 15:35] VITALS: BP 163/75
[2018-02-14 17:23] VITALS: BP 163/75
[2018-02-17] MEDS ORDERED: NON-FORMULARY MEDICATION 1 EA EA (Dulaglutide (Trulicity) 1.5 MG) SQ SCH (17:15)
== END 2018-02-14 17:20 | disposition home or self-care (01) ==
LOC: EDUNIT# 10:48 → ER 10:49 → UNDOADMOB 13:09 → 4TH 13:09 → SDC 13:09 → 4TH 13:09 → SDC 02-14 17:20 → UNDODISOB 02-14 17:20
PROVIDERS: ATTEND Surgery
DX: K80.10 Calculus of gallbladder with chronic cholecystitis without obstruction (principal); E11.9 Type 2 diabetes mellitus without complications; E03.9 Hypothyroidism, unspecified; G47.30 Sleep apnea, unspecified; K21.9 Gastro-esophageal reflux disease without esophagitis; E66.01 Morbid (severe) obesity due to excess calories; Z68.41 Body mass index [BMI] 40.0-44.9, adult; Z87.891 Personal history of nicotine dependence; Z79.899 Other long term (current) drug therapy
CPT/HCPCS: 36415; 74177; 80053; 81000; 82150; 82962; 83690; 84703; 85007; 85025; 85027; 87081; 96361; 96374; 96375

== ENCOUNTER → 2018-02-13 | Outpatient (CLI) | payer MEDICAID ==
[~2018-02-13] MED LIST changes: +ACET-2469 PO; +ACHD5005 PO; -CLON1TAB3 PO; +CLON1TAB4 PO; +CYCL5TAB PO; +DICL100G31 TOP; +DICY20TA10 PO; +FLUT16SP22 NS; -FLUT16SP22 NSEACH; +LEVO50TA6 PO; +LORA0.5T PO; +MELA5CAP PO; +MENT118G TP; +PANT40TA3 PO
--- NOTE | 2018-02-13 11:33 | Diagnostic Imaging Report ---
PROCEDURE: US abdomen complete. TECHNIQUE: Multiple real-time grayscale images were obtained over the abdomen in various projections. INDICATION: Abdominal pain. COMPARISON: 08/09/2017. FINDINGS: There is a diffuse hepatic steatosis. No focal hepatic mass is seen. There is no biliary dilatation. The common bile duct measures about 6 mm. There are multiple stones in the gallbladder. The gallbladder wall is mildly prominent which is likely due to incomplete distention. There is no pericholecystic fluid or sonographic Cat's sign. The pancreas is not well seen. Visualized portions appear unremarkable. The spleen measures 13 cm in length and appears unremarkable. The right kidney measures 11.2 cm in length and appears unremarkable. The left kidney measures 10.8 cm in length. There is a 5.2 cm cystic lesion seen above the left kidney. This may represent an exophytic renal cyst. Left adrenal mass would be difficult to entirely exclude. CT scan would be of additional benefit to further characterize this area. There is no obstructive change in either kidney. There is no ascites. The abdominal aorta is unremarkable as visualized however the mid and distal portions are largely obscured by overlying bowel gas. Inferior vena cava is not well demonstrated. There is no ascites. IMPRESSION: 1. Cholelithiasis without imaging evidence of cholecystitis. 2. Diffuse hepatic steatosis. 3. There is an indeterminate 5.2 cm cystic lesion seen above the right kidney possibly related to an extracranial cyst although an underlying adrenal mass also of some concern. CT scan of the abdomen is suggested for further evaluation. Dictated by: Dictated on workstation # [id number]
== END ==
LOC: RAD 10:03
PROVIDERS: ATTEND Internal Medicine Hematology & Oncology
DX: K80.20 Calculus of gallbladder without cholecystitis without obstruction (principal); K76.0 Fatty (change of) liver, not elsewhere classified; N28.1 Cyst of kidney, acquired
CPT/HCPCS: 76700

== ENCOUNTER 2018-02-17 10:28 | Outpatient (RCR) | payer MEDICAID ==
[2018-01-26 12:59] LABS: BASOPHILS % (AUTO) 0 % (0-10); EOSINOPHILS # (AUTO) 0.3 10^3/uL (0.0-0.3); EOSINOPHILS % (AUTO) 2 % (0-10); HEMATOCRIT 39 % (35-52); HEMOGLOBIN 13.2 G/DL (11.5-16.0); LYMPHOCYTES # (AUTO) 5.4 X 10^3 (1.0-4.0); LYMPHOCYTES % (AUTO) 35 % (12-44); MEAN CORPUSCULAR HEMOGLOBIN 28 PG (25-34); MEAN CORPUSCULAR HGB CONC 34 G/DL (32-36); MEAN CORPUSCULAR VOLUME 83 FL (80-99); MEAN PLATELET VOLUME 10.5 FL (7.4-10.4); MONOCYTES % (AUTO) 6 % (0-12); NEUTROPHILS # (AUTO) 8.8 X 10^3 (1.8-7.8); NEUTROPHILS % (AUTO) 57 % (42-75); PLATELET COUNT 299 10^3/uL (130-400); RED BLOOD COUNT 4.72 10^6/uL (4.35-5.85); RED CELL DISTRIBUTION WIDTH 17.6 % (10.0-14.5); WHITE BLOOD COUNT 15.4 10^3/uL (4.3-11.0)
[2018-01-26 13:20] LABS: ALBUMIN 4.1 GM/DL (3.2-4.5); BILIRUBIN,TOTAL 0.2 MG/DL (0.1-1.0); CREATININE SERUM 1.07 MG/DL (0.60-1.30); POTASSIUM 4.3 MMOL/L (3.6-5.0); TOTAL PROTEIN 7.2 GM/DL (6.4-8.2)
[2018-01-27 06:41] LABS: HEPATITIS C ANTIBODY C Non-Reactive (Non-Reactive)
[~2018-02-17 10:28] MED LIST changes: +ACET-2469 PO; +ACHD5005 PO; +CLON1TAB13 PO; -CLON1TAB4 PO; +CYCL5TAB PO; +DICL100G31 TOP; +DICY20TA10 PO; +LEVO50TA6 PO; +LORA0.5T PO; +MELA5CAP PO; +MENT118G TP; +METF-398 PO; -METF850T2 PO; -OXYC-197 PO; +OXYC1TAB87 PO; +PANT40TA3 PO
== END 2018-04-26 | disposition home or self-care (01) ==
LOC: ONC 10:28
PROVIDERS: ATTEND Internal Medicine Hematology & Oncology
DX: D72.829 Elevated white blood cell count, unspecified (principal); E11.43 Type 2 diabetes mellitus with diabetic autonomic (poly)neuropathy; E03.9 Hypothyroidism, unspecified; R07.89 Other chest pain; F41.9 Anxiety disorder, unspecified; R13.14 Dysphagia, pharyngoesophageal phase; K58.9 Irritable bowel syndrome, unspecified; M19.91 Primary osteoarthritis, unspecified site; G89.29 Other chronic pain; F17.290 Nicotine dependence, other tobacco product, uncomplicated; Z79.899 Other long term (current) drug therapy
CPT/HCPCS: 80053; 80074; 81206; 81270; 85025; 86703; 88184; 88185; 99213; 99214